=== PATIENT | female | born 1945 | race Caucasian/White ===

== ENCOUNTER 2017-10-23 13:33 | Inpatient (IN) | payer MEDICARE ==
[2017-10-23] MEDS ORDERED: ASPIRIN 81 MG PO STA (14:05)
[2017-10-23 15:07] LABS: Basophils % (A) 0 %; Eosinophils # (A) 0.2 k/uL (0-0.7); Eosinophils % (A) 2 %; HCT 42.1 % (34.0-46.0); HGB 13.6 gm/dL (11.4-16.0); Hypochromasia Moderate; Lymphocytes # (A) 2.1 k/uL (1.0-4.8); Lymphocytes % (A) 22 %; MCH 31.4 pg (25.0-35.0); MCHC 32.4 g/dL (31.0-37.0); Mean Platelet Volume 8.3; Monocytes # (A) 0.6 k/uL (0-1.0); Monocytes % (A) 6 %; Neutrophils # (A) 6.2 k/uL (1.3-7.7); Neutrophils % (A) 66 %; Platelet Count 182 k/uL (150-450); RBC 4.34 m/uL (3.80-5.40); RDW 15.6 % (11.5-15.5); WBC 9.3 k/uL (3.8-10.6)
[2017-10-23 15:16] LABS: INR 1.2 (<1.2); Prothrombin Time 11.8 sec (9.0-12.0)
[2017-10-23 15:21] LABS: ALT 57 U/L (9-52); AST 55 U/L (14-36); Albumin 3.8 g/dL (3.5-5.0); Alkaline Phosphatase 108 U/L (38-126); Anion Gap 15 mmol/L; Blood Urea Nitrogen 20 mg/dL (7-17); Calcium 9.3 mg/dL (8.4-10.2); Carbon Dioxide 24 mmol/L (22-30); Chloride 102 mmol/L (98-107); Glucose 112 mg/dL (74-99); Lipase 75 U/L (23-300); Magnesium 1.9 mg/dL (1.6-2.3); Potassium 4.9 mmol/L (3.5-5.1); Sodium 141 mmol/L (137-145); Total Bilirubin 0.7 mg/dL (0.2-1.3); Total Protein 7.1 g/dL (6.3-8.2)
--- NOTE | 2017-10-23 15:27 | XR ---
EXAMINATION TYPE: XR chest 2V DATE OF EXAM: 10/23/2017 COMPARISON: None HISTORY: 72-year-old female with chest pain and cough TECHNIQUE: PA and lateral views FINDINGS: Left heart margin partially obscured by adjacent pleural parenchymal opacities. Diffuse interstitial densities and peribronchial cuffing. Mild hyperinflation. There is patchy left basilar opacity with s mall effusion. Some focal peripheral right midlung density. Surgical clips in the right axilla. Trace effusion on the right. IMPRESSION: 1. Diffuse interstitial changes with small left and trace right effusions. Correlate to exclude mild CHF. 2. Interstitial changes could alternatively reflect bronchitis or atypical pneumonias. 3. More focal opacity at the peripheral right midlung could represent developing infiltrate. Follow-u p recommended.
--- NOTE | 2017-10-23 15:32 | XR ---
EXAMINATION TYPE: XR abdomen 2V DATE OF EXAM: 10/23/2017 CLINICAL DATA: 72-year-old female with pain, PHH COMPARISON: None FINDINGS: No evidence for free intraperitoneal air. Some nonspecific air within scattered bowel loops. There is mild stool in the right-sided the abdomen . Some air seen in the rectum. Vascular calcifications in both the abdomen and pelvis. Pelvic phleboliths. No dilated bowel loops. Degenerative levoconvex scoliosis of the lumbar spine. IMPRESSION: No evidence for free air or bowel obstruction.
[2017-10-23] MEDS ORDERED: HEPARIN SODIUM,PORCINE 5,000 UNIT/ML 1 ML VIAL IV ONE (15:59)
[2017-10-23] MEDS ORDERED: HEPARIN SOD,PORK IN 0.45% NACL 25,000 UNIT in 0.45% NACL 1 500ML.BAG IV SCH (16:00)
--- NOTE | 2017-10-23 16:03 | ED ---
Chest Pain HPI - General Chief Complaint: Chest Pain Stated Complaint: Chest Congestion, Constipated Time Seen by Provider: 10/23/17 14:05 Source: patient Mode of arrival: wheelchair Limitations: no limitations - History of Present Illness Initial Comments: Patient complains of chest pain. Pain is in the middle of the chest. Nothing makes it better or worse. She also complains of constipation. She also complains of firmness in the area of her old mastectomy scar. She has taken no medication for the symptoms. She denies palpitations. She has no pain or swelling in the arms or legs. She has no lightheadedness or dizziness. She denies injuries. She has had no sick contacts. Her chest pain does not radiate anywhere. She has no nausea or vomiting or diaphoresis. - Related Data Home Medications Medication Instructions Recorded Confirmed Ascorbic Acid [Vitamin C] 1,000 mg PO DAILY 10/23/17 10/23/17 Cholecalciferol [Vitamin D3] 1,000 unit PO DAILY 10/23/17 10/23/17 Multivitamins, Thera [Multivitamin 1 tab PO DAILY 10/23/17 10/23/17 (formulary)] Vitamin B Complex 1 cap PO DAILY 10/23/17 10/23/17 Allergies Allergy/AdvReac Type Severity Reaction Status Date / Time morphine Allergy Dyspnea Verified 10/23/17 15:53 Review of Systems ROS Statement: Those systems with pertinent positive or pertinent negative responses have been documented in the HPI. ROS Other: All systems not noted in ROS Statement are negative. EKG Findings - EKG Comments: EKG Findings:: Twelve-lead EKG shows ventricular 120 bpm, normal RI interval, normal QRS, no ST elevation or depression, interpreted by me as sinus tachycardia. Past Medical History Past Medical History: Asthma, Cancer, COPD History of Any Multi-Drug Resistant Organisms: None Reported Past Surgical History: Breast Surgery Additional Past Surgical History / Comment(s): masectomy Past Psychological History: No Psychological Hx Reported Smoking Status: Current every day smoker Past Alcohol Use History: Occasional Past Drug Use History: None Reported General Exam Limitations: no limitations General appearance: alert, in no apparent distress Head exam: Present: atraumatic, normocephalic, normal inspection Eye exam: Present: normal appearance, PERRL, EOMI. Absent: scleral icterus, conjunctival injection, periorbital swelling ENT exam: Present: normal exam, mucous membranes moist Neck exam: Present: normal inspection. Absent: tenderness, meningismus, lymphadenopathy Respiratory exam: Present: normal lung sounds bilaterally. Absent: respiratory distress, wheezes, rales, rhonchi, stridor Cardiovascular Exam: Present: regular rate, normal rhythm, normal heart sounds. Absent: systolic murmur, diastolic murmur, rubs, gallop, clicks GI/Abdominal exam: Present: soft, normal bowel sounds. Absent: distended, tenderness, guarding, rebound, rigid Extremities exam: Present: normal inspection, full ROM, normal capillary refill. Absent: tenderness, pedal edema, joint swelling, calf tenderness Back exam: Present: normal inspection Neurological exam: Present: alert, oriented X3, CN II-XII intact Psychiatric exam: Present: normal affect, normal mood Skin exam: Present: warm, dry, intact, normal color. Absent: rash Course Vital Signs 10/23/17 10/23/17 10/23/17 13:59 14:03 15:35 Temperature 98.9 F Pulse Rate 117 H 102 H Respiratory 24 24 22 Rate Blood Pressure 175/91 140/74 O2 Sat by Pulse 92 L 94 L Oximetry Chest Pain MDM - MDM Patient complains of chest pain. Troponin is positive. I ordered IV heparin. I consult to cardiology. She will be admitted to the hospital. Critical Care Time Critical Care Time: Yes (35) Disposition Clinical Impression: NSTEMI (non-ST elevated myocardial infarction) Disposition: ADMITTED IP TO THIS [facility] Condition: Serious Is patient prescribed a controlled substance at discharge?: No Referrals: None,Stated [Primary Care Provider] - 1-2 days
[2017-10-23 16:41] LABS: Appearance,Urine Cloudy (Clear); Bacteria,Urine Many /hpf; Bilirubin,Urine Negative (Negative); Blood,Urine Moderate (Negative); Color,Urine Yellow; Glucose,Urine (UA) Negative (Negative); Ketones,Urine Negative (Negative); Leukocyte Esterase,Urine Large (Negative); Mucus,Urine Rare /hpf; Nitrite,Urine Positive (Negative); Protein,Urine Trace (Negative); RBC,Urine 10 /hpf (0-5); Specific Gravity,Urine 1.009 (1.001-1.035); Squamous Epithelial Cell,Urine 1 /hpf (0-4); Urobilinogen,Urine <2.0 mg/dL (<2.0); WBC,Urine 54 /hpf (0-5)
[2017-10-23] MEDS ORDERED: BISACODYL 5 MG TABLET.DR PO PRN (17:38)
[2017-10-23] MEDS ORDERED: POLYETHYLENE GLYCOL 3350 17 GM POWD.PACK PO STA (17:40)
[2017-10-23] MEDS ORDERED: MAG HYDROX/AL HYDROX/SIMETH 30 ML CUP PO PRN (17:42)
[2017-10-23] MEDS ORDERED: PROCHLORPERAZINE 5 MG TAB PO PRN (17:42)
[2017-10-23] MEDS ORDERED: ACETAMINOPHEN TAB 325 MG TAB PO PRN (17:42)
--- NOTE | 2017-10-23 17:57 | P.HPIM ---
History of Present Illness H&P Date: 10/23/17 Chief Complaint: Constipation Patient is a 72-year-old female who does not follow with a physician, long-time smoker however quit a couple weeks ago with onset of an upper respiratory type infection. Patient presented to the ED with a 2+ week history of constipation, states the last full bowel movement was about 2 weeks ago and since then has only been having intermittent very small hard bowel movements. While in the ED , patient also complained about right-sided chest wall pain located at the bottom of her rib cage which she has been having intermittently and which she thinks is related to her constipation. Patient also states she had some what she thought was indigestion last night, with some epigastric discomfort which she attributed to eating chili before bed. While in the ED, found to have a troponin of 0.113 and started on heparin, admitted to telemetry for presumed NSTEMI. No ECG changes. Review of Systems CONSTITUTIONAL: No weight loss, fever, chills, weakness or fatigue. HEENT: Eyes: No visual loss, blurred vision, double vision or yellow sclerae. Ears, Nose, Throat: No hearing loss, sneezing, congestion, runny nose or sore throat. SKIN: No rash or itching. CARDIOVASCULAR: Positive for epigastric discomfort last night. Right rib cage pain. No radiation. No palpitations. RESPIRATORY: No shortness of breath, cough or sputum. GASTROINTESTINAL: No anorexia, nausea, vomiting or diarrhea. No abdominal pain or blood. Positive for constipation GENITOURINARY: No burning on urination. No change in frequency. No change in stream. NEUROLOGICAL: No headache, dizziness, syncope, paralysis, ataxia, numbness or tingling in the extremities. No change in bowel or bladder control. MUSCULOSKELETAL: No muscle, back pain, joint pain or stiffness. HEMATOLOGIC: No anemia, bleeding or bruising. PSYCHIATRIC: No history of depression or anxiety. ENDOCRINOLOGIC: No reports of sweating, cold or heat intolerance. No polyuria or polydipsia. ALLERGIES: No history of asthma, hives, eczema or rhinitis. Past Medical History Past Medical History: Cancer, COPD History of Any Multi-Drug Resistant Organisms: None Reported Past Surgical History: Breast Surgery Additional Past Surgical History / Comment(s): masectomy Past Psychological History: No Psychological Hx Reported Smoking Status: Current every day smoker (Supposedly quit a couple weeks ago) Past Alcohol Use History: Occasional Past Drug Use History: None Reported - Past Family History Father Family Medical History: Coronary Artery Disease (CAD), Hypertension Mother Family Medical History: Coronary Artery Disease (CAD), Diabetes Mellitus, Hypertension Medications and Allergies Home Medications Medication Instructions Recorded Confirmed Type Ascorbic Acid [Vitamin C] 1,000 mg PO DAILY 10/23/17 10/23/17 History Cholecalciferol [Vitamin D3] 1,000 unit PO DAILY 10/23/17 10/23/17 History Multivitamins, Thera [Multivitamin 1 tab PO DAILY 10/23/17 10/23/17 History (formulary)] Vitamin B Complex 1 cap PO DAILY 10/23/17 10/23/17 History Allergies Allergy/AdvReac Type Severity Reaction Status Date / Time morphine Allergy Dyspnea Verified 10/23/17 15:53 Physical Exam Vitals: Vital Signs Temp Pulse Resp BP Pulse Ox 10/23/17 17:02 97.0 F L 105 H 18 148/79 94 L 10/23/17 15:35 102 H 22 140/74 94 L 10/23/17 14:03 24 10/23/17 13:59 98.9 F 117 H 24 175/91 92 L Intake and Output 10/23/17 10/23/17 10/23/17 06:59 14:59 22:59 Other: Weight 61.689 kg General: A/O x 3, NAD, Lying in bed comfortably HEENT: EOMI, MMM, atraumatic normocephalic. Poor dentition, missing many teeth Neck: Supple. No JVD, trachea midline CVS: Regular rate and rhythm. + S1/S2, no murmurs/gallops/rubs Respiratory: Bilateral air entry noted. Clear to auscultation, no wheeze, no rhonchi Abdomen: Soft, nontender, nondistended. Bowel sounds audible, hypoactive Extremities: No lower extremity edema. No clubbing or cyanosis Skin: No rash or skin change noted Psych: Without hallucinations, abnormal affect, or abnormal behaviors during the examination Results CBC & Chem 7: 10/23/17 14:40 10/23/17 14:40 Labs: Abnormal Lab Results - Last 24 Hours (Table) 10/23/17 10/23/17 10/23/17 Range/Units 14:40 14:40 14:40 RDW 15.6 H (11.5-15.5) % INR 1.2 H (<1.2) BUN 20 H (7-17) mg/dL Glucose 112 H (74-99) mg/dL AST 55 H (14-36) U/L ALT 57 H (9-52) U/L Troponin I (0.000-0.034) ng/mL Urine Appearance (Clear) Urine Protein (Negative) Urine Blood (Negative) Urine Nitrite (Negative) Ur Leukocyte Esterase (Negative) Urine RBC (0-5) /hpf Urine WBC (0-5) /hpf Urine WBC Clumps (None) /hpf Urine Bacteria (None) /hpf Urine Mucus (None) /hpf 18 10/23/17 Range/Units 14:40 16:08 RDW (11.5-15.5) % INR (<1.2) BUN (7-17) mg/dL Glucose (74-99) mg/dL AST (14-36) U/L ALT (9-52) U/L Troponin I 0.113 H* (0.000-0.034) ng/mL Urine Appearance Cloudy H (Clear) Urine Protein Trace H (Negative) Urine Blood Moderate H (Negative) Urine Nitrite Positive H (Negative) Ur Leukocyte Esterase Large H (Negative) Urine RBC 10 H (0-5) /hpf Urine WBC 54 H (0-5) /hpf Urine WBC Clumps Moderate H (None) /hpf Urine Bacteria Many H (None) /hpf Urine Mucus Rare H (None) /hpf Chest x-ray: report reviewed Thrombosis Risk Factor Assmnt - DVT/VTE Prophylaxis DVT/VTE Prophylaxis: Pharmacologic Prophylaxis ordered Assessment and Plan (1) Constipation Current Visit: Yes Status: Acute Code(s): K59.00 - CONSTIPATION, UNSPECIFIED SNOMED Code(s): 01869706 (2) NSTEMI (non-ST elevated myocardial infarction) Current Visit: Yes Status: Acute Code(s): I21.4 - NON-ST ELEVATION (NSTEMI) MYOCARDIAL INFARCTION SNOMED Code(s): 467130003 Plan: Found to have an elevated troponin of 0.1131 on the ED, however patient denies any explicit chest pain and this troponin elevation seems to be almost incidentally found. Patient did complain about some epigastric discomfort last night which she attributed to her meal, and of note patient is not the greatest of historians. ECG showed no acute ST or T-wave changes. We'll repeat a troponin now and again in 6 hours. Patient was started on heparin while in the ED, given aspirin and cardiology was consulted. At this time we'll continue the heparin pending further workup. This mild troponin elevation may be related to a recent URI with demand ischemia, versus an actual NSTEMI with the patient's epigastric discomfort actually cardiac pain. Pending further workup with repeat troponins, monitor on telemetry. Patient states she came in because the constipation which has been going on for 2+ weeks without adequate bowel movement. MiraLAX now, Dulcolax when necessary. May need enema
[2017-10-24] MEDS ORDERED: HEPARIN SODIUM,PORCINE 5,000 UNIT/ML 1 ML VIAL IV PRN (00:43)
[2017-10-24 04:27] LABS: ALT 52 U/L (9-52); AST 46 U/L (14-36); Albumin 3.3 g/dL (3.5-5.0); Alkaline Phosphatase 94 U/L (38-126); Anion Gap 13 mmol/L; Blood Urea Nitrogen 23 mg/dL (7-17); Carbon Dioxide 23 mmol/L (22-30); Chloride 105 mmol/L (98-107); Glucose 121 mg/dL (74-99); Potassium 4.6 mmol/L (3.5-5.1); Sodium 141 mmol/L (137-145); Total Bilirubin 0.5 mg/dL (0.2-1.3)
--- NOTE | 2017-10-24 08:22 | CONS ---
CONSULTATION Ms. Sierra is a 72-year-old female with a history of chronic tobacco use who has not seen a physician in many years, who presented with predominantly constipation and chest discomfort. Her discomfort was right-sided but she had some discomfort to the middle of the chest. She had recent dyspnea. She denies any palpitation. She had mild dizziness. She had 4 pillow orthopnea that is chronic and that she relates to her asthma. No peripheral edema. No syncope. No history of arrhythmia. She has no prior documented history of coronary artery disease, but has not seen a physician in many years and she does not take any medication. Her coronary risk factors are noted for the smoking. She has not been told that she has hypertension, hyperlipidemia, or diabetes. MEDICATION: At home include vitamins. REVIEW OF SYSTEMS: RESPIRATORY system she had dyspnea on exertion. She has some cough and she smokes up to recently. GI system: She has constipation. No GI bleeding. No peptic ulcer disease. system: No dysuria, hematuria. Nervous system: No stroke or seizure disorder. PAST SURGICAL HISTORY: Past surgical history is remarkable for right mastectomy for malignancy. PHYSICAL EXAMINATION: This is a 72-year-old female, alert, oriented, in no apparent distress. Appears older than stated age. Blood pressure 140/60 with a heart rate in the low 100. HEAD: Normocephalic. Eyes sclerae anicteric. Neck good carotid upstroke. No bruit. No jugular venous distention. LUNGS: Lungs with decreased air exchange. No wheezes. HEART: Regular rate and rhythm S1, S2. No S3 and no rub. ABDOMEN: Soft, nontender. Positive bowel sounds. No megaly. EXTREMITIES: No edema. Intact distal pulses. LAB DATA: Chest x-ray raised the question of mild CHF with possible bronchitis. Abdominal x-ray shows no evidence of free air. Her troponin are 0.113, 0.118 and 0.124. NT proBNP 98622. BUN and creatinine 20 and 0.76, potassium 4.9. Hemoglobin is 13.6. No EKGs available for evaluation. IMPRESSION: 1. Symptoms of chest discomfort and dyspnea with elevation of troponin suggestive of non ST-segment elevation myocardial infarction. Patient also has findings consistent with CHF with the elevation of the NT proBNP and results of her chest x- ray. 2. Chronic tobacco use up to recently. 3. Constipation of unclear etiology. 4. Prior history off mastectomy in the , is stable. RECOMMENDATION: I will obtain echocardiogram with Doppler. I will obtain an EKG. I have recommended to proceed with a echocardiogram with Doppler. I have recommend to proceed with cardiac catheterization. The rationale behind the procedure as well as risks and complication were discussed with the patient. She would like to think about it further and let me know about her decision. Thank you for this consult. We will follow with you. MMODL / IJN: [id number] /
[2017-10-24] MEDS ORDERED: ALPRAZolam 0.25 MG TAB PO PRN (08:39)
[2017-10-24] MEDS ORDERED: NITROGLYCERIN SL TABS 0.4 MG TAB SUBLINGUAL PRN (08:39)
[2017-10-24] MEDS ORDERED: ATORVASTATIN 80 MG TAB PO STA (08:39)
[2017-10-24] MEDS ORDERED: SODIUM CHLORIDE 0.9% 1,000 ML in EMPTY BAG 1 BAG IV ONE (08:39)
[2017-10-24] MEDS ORDERED: ALPRAZolam 0.5 MG TAB PO PRN (08:39)
[2017-10-24] MEDS ORDERED: ASPIRIN 325 MG TAB PO STA (08:39)
[2017-10-24] MEDS: FUROSEMIDE 20 MG TAB PO SCH ×2 (08:58→21:56)
[2017-10-24] MEDS ORDERED: METOPROLOL TARTRATE 25 MG TAB PO SCH (09:00)
[2017-10-24] MEDS ORDERED: ATORVASTATIN 40 MG TAB PO SCH (09:00)
[2017-10-24] MEDS ORDERED: ASPIRIN 81 MG PO SCH (09:00)
[2017-10-24] MEDS ORDERED: LIDOCAINE 2% INJ 20 MG/ML (20 ML MDV) ONE (09:05)
[2017-10-24] MEDS ORDERED: fentaNYL (PF) 50 MCG/ML 2 ML AMP ONE (09:30)
[2017-10-24] MEDS ORDERED: IV FLUID CONTINUATION 1,000 ML IV ONE (09:36)
[2017-10-24 09:43] LABS: Cholesterol 177 mg/dL (<200); HDL Cholesterol 29 mg/dL (40-60); LDL Cholesterol,Calculated 130 mg/dL (0-99); Triglycerides 89 mg/dL (<150)
[2017-10-24] MEDS ORDERED: fentaNYL (PF) 50 MCG/ML 2 ML AMP IV ONE (09:53)
[2017-10-24] MEDS ORDERED: LIDOCAINE 2% INJ 20 MG/ML SQ ONE (09:56)
[2017-10-24] MEDS ORDERED: MIDAZOLAM 2 MG/2 ML VIAL ONE (10:03)
[2017-10-24] MEDS ORDERED: MIDAZOLAM 2 MG/2 ML VIAL IV ONE (10:05)
[2017-10-24] MEDS ORDERED: FUROSEMIDE 10 MG/ML 4 ML VIAL ONE (10:12)
[2017-10-24] MEDS ORDERED: FUROSEMIDE 10 MG/ML 4 ML VIAL IV ONE (10:13)
[2017-10-24] MEDS ORDERED: IOPAMIDOL-370 125ML BTL INJ ONE (10:26)
[2017-10-24] MEDS ORDERED: IOPAMIDOL-370 50ML BTL INJ ONE (10:26)
[2017-10-24] MEDS ORDERED: RX INFO: IV CONTRAST WAS GIVEN 1 EACH MISC MISCELLANE PRN (10:39)
[2017-10-24] MEDS ORDERED: SODIUM CHLORIDE 0.9% 1,000 ML IV SCH (10:45)
[2017-10-24] MEDS ORDERED: MD COMMUNICATION TO PHARMACY 1 EACH MISC PO ONE ×2 (10:57)
--- NOTE | 2017-10-24 11:06 | CC ---
CARDIAC CATHETERIZATION REPORT Mrs. Sierra is a 72-year-old female, chronic tobacco use, who has not seen a physician in about 10 years, who presented with symptoms of constipation, chest discomfort and dyspnea. Had mild elevation of troponin with no significant changes. In view of that, recommendation made regarding cardiac catheterization. The procedures, risks and complication were discussed with the patient who is in full understanding and agreement. PROCEDURE: Patient was brought to the [facility] in a fasting, semi-sedated state after receiving fentanyl and Benadryl and achieving moderate conscious sedated state. Using Xylocaine anesthesia and Seldinger technique, a 6-Samoan sheath was introduced in the right femoral artery. Selective left coronary angiography performed with 6-Samoan 4 bend left Andrew catheter. Following that, multiple images of the left coronary artery system were obtained. Following that, a 6-Samoan tight pigtail catheter was introduced into the left ventricle, a 30 degree ALSTON view of the left ventricle was obtained. Following that, the right coronary artery ostium was engaged using a 6-Samoan Gabriel posterior catheter and images of the right coronary was performed. Following that, catheter and sheaths were removed. Hemostasis was obtained with compression of the right groin. There were no immediate complication. Patient returned to her room in stable condition. FINDINGS: 1. FLUOROSCOPY: There was severe calcification involving the left main and the LAD. 2. LEFT MAIN: This is a large-sized vessel, bifurcating into left circumflex, left anterior descending artery. Left main coronary artery at the bifurcation has an eccentric 60% to 70% plaque. The rest of the vessel has no high-grade stenosis. 3. LEFT ANTERIOR DESCENDING ARTERY: This is a large dominant vessel, giving rise to a large diagonal branch. At the takeoff of the diagonal branch there is an 80 % stenosis. The rest of the vessel has no high-grade stenosis. 4. LEFT CIRCUMFLEX: This is a nondominant vessel that has no evidence of high- grade stenosis. It gives rise to a large obtuse marginal branch that has a 20% to 30% plaque, distally bifurcating into PDA, posterolateral segment and branches. 5. RIGHT CORONARY ARTERY: This is a small, codominant vessel that has no evidence of high-grade stenosis. 6. LEFT VENTRICULOGRAM: Left ventriculogram is performed in 30-degree ALSTON view and revealed severe global hypokinesis with ejection fraction of 20%. There was a 4+ mitral regurgitation. The patient has severe PAD. HEMODYNAMICS: There was no gradient across the aortic valve. The left ventricular end- diastolic pressure is 26-30 mmHg. CONCLUSION: 1. Calcified coronary arteries. 2. Critical stenosis in distal left main and in the proximal left anterior descending artery. 3. Severely impaired left ventricular systolic function with a 3 to 4+ mitral regurgitation. 4. Severe PAD. RECOMMENDATION: At this time, I would recommend to maximize her medical therapy. Patient needs to be evaluated for the possibility of coronary bypass grafting. Unfortunately, the prognosis is guarded. Those findings and recommendation were discussed with the patient and her family who are in full understanding and agreement. DURATION OF PROCEDURE: 28 minutes. MMODL / IJN: [id number] / ADELA
[2017-10-24 11:27] LABS: Basophils # (A) 0.1 k/uL (0-0.2); Basophils % (A) 1 %; Eosinophils # (A) 0.3 k/uL (0-0.7); Eosinophils % (A) 3 %; HCT 44.9 % (34.0-46.0); HGB 13.5 gm/dL (11.4-16.0); Hypochromasia Marked; Lymphocytes # (A) 2.5 k/uL (1.0-4.8); Lymphocytes % (A) 25 %; MCH 30.5 pg (25.0-35.0); MCHC 30.1 g/dL (31.0-37.0); MCV 101.3 fL (80.0-100.0); Macrocytosis Slight; Mean Platelet Volume 9.9; Monocytes # (A) 0.7 k/uL (0-1.0); Monocytes % (A) 7 %; Neutrophils # (A) 6.1 k/uL (1.3-7.7); Neutrophils % (A) 62 %; Platelet Count 152 k/uL (150-450); RBC 4.43 m/uL (3.80-5.40); RDW 15.8 % (11.5-15.5); WBC 9.8 k/uL (3.8-10.6)
[2017-10-24 11:46] LABS: INR 1.4 (<1.2); Prothrombin Time 12.7 sec (9.0-12.0)
[2017-10-24 12:40] LABS: T4, Free (Free Thyroxine) 1.47 ng/dL (0.78-2.19)
[2017-10-24] MEDS: HEPARIN SOD,PORK IN 0.45% NACL 25,000 UNIT in 0.45% NACL 1 500ML.BAG IV SCH (12:50)
--- NOTE | 2017-10-24 13:52 | P.PN ---
Subjective Progress Note Date: 10/24/17 Principal diagnosis: Chest pain Patient just came back from heart catheterization, currently doing well no chest pain or shortness of breath. She feels a little dizzy and weak. Objective - Vital Signs Vital signs: Vital Signs Temp 97.0 F L 10/24/17 10:54 Pulse 75 10/24/17 10:54 Resp 18 10/24/17 10:54 BP 126/60 10/24/17 10:54 Pulse Ox 92 L 10/24/17 10:54 Intake & Output 10/23/17 10/24/17 10/24/17 18:59 06:59 18:59 Intake Total 159.7 100 Output Total 400 Balance 159.7 -300 Weight 61.689 kg 67.5 kg Intake: IV 45 100 Heparin Sod,Pork in 0.45% 45 NaCl 25,000 unit In 0.45 % NaCl 1 500ml.bag @ 12 UNITS/KG/HR 14.8 mls/hr IV .Q24H BETSY Rx#: [id number] Intake, IV Titration 114.7 Amount Heparin Sod,Pork in 0.45% 114.7 NaCl 25,000 unit In 0.45 % NaCl 1 500ml.bag @ 12 UNITS/KG/HR 14.8 mls/hr IV .Q24H BETSY Rx#: [id number] Output: Urine 400 Other: Voiding Method Bedside Commode - Exam General: A/O x 3, NAD, Lying in bed comfortably HEENT: EOMI, MMM, atraumatic normocephalic. Poor dentition, missing many teeth Neck: Supple. No JVD, trachea midline CVS: Regular rate and rhythm. + S1/S2, no murmurs/gallops/rubs Respiratory: Bilateral air entry noted. Clear to auscultation, no wheeze, no rhonchi Abdomen: Soft, nontender, nondistended. Bowel sounds audible, hypoactive Extremities: No lower extremity edema. No clubbing or cyanosis Skin: No rash or skin change noted Psych: Without hallucinations, abnormal affect, or abnormal behaviors during the examination - Labs CBC & Chem 7: 10/24/17 06:18 10/24/17 03:31 Labs: Abnormal Lab Results - Last 24 Hours (Table) 10/23/17 10/23/17 10/23/17 Range/Units 14:40 14:40 14:40 MCV (80.0-100.0) fL MCHC (31.0-37.0) g/dL RDW 15.6 H (11.5-15.5) % PT (9.0-12.0) sec INR 1.2 H (<1.2) APTT (22.0-30.0) sec BUN 20 H (7-17) mg/dL Glucose 112 H (74-99) mg/dL AST 55 H (14-36) U/L ALT 57 H (9-52) U/L Troponin I (0.000-0.034) ng/mL Total Protein (6.3-8.2) g/dL Albumin (3.5-5.0) g/dL LDL Cholesterol, Calc (0-99) mg/dL HDL Cholesterol (40-60) mg/dL TSH (0.465-4.680) mIU/L Urine Appearance (Clear) Urine Protein (Negative) Urine Blood (Negative) Urine Nitrite (Negative) Ur Leukocyte Esterase (Negative) Urine RBC (0-5) /hpf Urine WBC (0-5) /hpf Urine WBC Clumps (None) /hpf Urine Bacteria (None) /hpf Urine Mucus (None) /hpf 10/23/17 10/23/17 10/23/17 Range/Units 14:40 16:08 19:14 MCV (80.0-100.0) fL MCHC (31.0-37.0) g/dL RDW (11.5-15.5) % PT (9.0-12.0) sec INR (<1.2) APTT (22.0-30.0) sec BUN (7-17) mg/dL Glucose (74-99) mg/dL AST (14-36) U/L ALT (9-52) U/L Troponin I 0.113 H* 0.118 H* (0.000-0.034) ng/mL Total Protein (6.3-8.2) g/dL Albumin (3.5-5.0) g/dL LDL Cholesterol, Calc (0-99) mg/dL HDL Cholesterol (40-60) mg/dL TSH (0.465-4.680) mIU/L Urine Appearance Cloudy H (Clear) Urine Protein Trace H (Negative) Urine Blood Moderate H (Negative) Urine Nitrite Positive H (Negative) Ur Leukocyte Esterase Large H (Negative) Urine RBC 10 H (0-5) /hpf Urine WBC 54 H (0-5) /hpf Urine WBC Clumps Moderate H (None) /hpf Urine Bacteria Many H (None) /hpf Urine Mucus Rare H (None) /hpf 10/23/17 10/24/17 10/24/17 Range/Units 23:19 03:26 03:31 MCV (80.0-100.0) fL MCHC (31.0-37.0) g/dL RDW (11.5-15.5) % PT (9.0-12.0) sec INR (<1.2) APTT 35.1 H (22.0-30.0) sec BUN 23 H (7-17) mg/dL Glucose 121 H (74-99) mg/dL AST 46 H (14-36) U/L ALT (9-52) U/L Troponin I 0.124 H* (0.000-0.034) ng/mL Total Protein 6.0 L (6.3-8.2) g/dL Albumin 3.3 L (3.5-5.0) g/dL LDL Cholesterol, Calc (0-99) mg/dL HDL Cholesterol (40-60) mg/dL TSH (0.465-4.680) mIU/L Urine Appearance (Clear) Urine Protein (Negative) Urine Blood (Negative) Urine Nitrite (Negative) Ur Leukocyte Esterase (Negative) Urine RBC (0-5) /hpf Urine WBC (0-5) /hpf Urine WBC Clumps (None) /hpf Urine Bacteria (None) /hpf Urine Mucus (None) /hpf 10/24/17 10/24/17 10/24/17 Range/Units 06:18 06:18 06:18 MCV 101.3 H (80.0-100.0) fL MCHC 30.1 L (31.0-37.0) g/dL RDW 15.8 H (11.5-15.5) % PT (9.0-12.0) sec INR (<1.2) APTT 56.8 H (22.0-30.0) sec BUN (7-17) mg/dL Glucose (74-99) mg/dL AST (14-36) U/L ALT (9-52) U/L Troponin I (0.000-0.034) ng/mL Total Protein (6.3-8.2) g/dL Albumin (3.5-5.0) g/dL LDL Cholesterol, Calc 130 H (0-99) mg/dL HDL Cholesterol 29 L (40-60) mg/dL TSH (0.465-4.680) mIU/L Urine Appearance (Clear) Urine Protein (Negative) Urine Blood (Negative) Urine Nitrite (Negative) Ur Leukocyte Esterase (Negative) Urine RBC (0-5) /hpf Urine WBC (0-5) /hpf Urine WBC Clumps (None) /hpf Urine Bacteria (None) /hpf Urine Mucus (None) /hpf 10/24/17 10/24/17 Range/Units 06:18 06:18 MCV (80.0-100.0) fL MCHC (31.0-37.0) g/dL RDW (11.5-15.5) % PT 12.7 H (9.0-12.0) sec INR 1.4 H (<1.2) APTT (22.0-30.0) sec BUN (7-17) mg/dL Glucose (74-99) mg/dL AST (14-36) U/L ALT (9-52) U/L Troponin I (0.000-0.034) ng/mL Total Protein (6.3-8.2) g/dL Albumin (3.5-5.0) g/dL LDL Cholesterol, Calc (0-99) mg/dL HDL Cholesterol (40-60) mg/dL TSH 6.260 H (0.465-4.680) mIU/L Urine Appearance (Clear) Urine Protein (Negative) Urine Blood (Negative) Urine Nitrite (Negative) Ur Leukocyte Esterase (Negative) Urine RBC (0-5) /hpf Urine WBC (0-5) /hpf Urine WBC Clumps (None) /hpf Urine Bacteria (None) /hpf Urine Mucus (None) /hpf Assessment and Plan Plan: (1) NSTEMI (non-ST elevated myocardial infarction) Cardiology was consulted, troponin trended up so patient was taken to the [facility] today, decision was made to pursue cardiac bypass and to consult CT surgery.. Continue aspirin, beta gregg, AMANDA inhibitor, statin, Lasix and Aldactone At this time we'll continue the heparin pending further workup. (2) Constipation: Laxatives as needed
--- NOTE | 2017-10-24 14:53 | P.GSCN ---
<Mana Prabhakar - Last Filed: 10/24/17 14:28> History of Present Illness Consult date: 10/24/17 Reason for Consult: Severe coronary artery disease with left main disease, impaired LV function with mitral regurgitation, surgical recommendations. Requesting physician: Cele Bass History of present illness: This is a 72-year-old patient who has not followed with any physician in greater than 10 years. She does report a history of right breast cancer with mastectomy, status post chemo and radiation in 1997, hypothyroidism for which she stopped taking her medications years ago, recent cessation of tobacco use with previous [id number] history, medical noncompliance, and significant family history of coronary artery disease. She presented to the emergency room yesterday with complaints of constipation 2 weeks. She also admits to having an episode of chest pain a couple of nights ago which she states felt like heartburn and she attributed it to the chili she had eaten that day. She does report associated symptoms of shortness of breath, diaphoresis, and dizziness, which subsided without intervention. She had an elevation in her troponins and was admitted for cardiac workup. She was recommended to undergo heart catheterization which was completed this morning and which demonstrated left main stenosis of 60-70%, 30% RCA stenosis, 20% circumflex stenosis, and 80% proximal LAD stenosis. LV gram demonstrated severely impaired left ventricular function with an ejection fraction of 20% and 3-4+ mitral regurgitation. Dr. Marks was consulted for recommendations regarding surgical revascularization. Review of Systems 14 point review of systems was completed and was negative except as noted. - Constitutional Reports sweats - Cardiovascular Reports as per HPI, Reports chest pain, Reports lightheadedness, Reports shortness of breath - Respiratory Reports as per HPI, Reports dyspnea Past Medical History Past Medical History: Cancer, COPD, Thyroid Disorder History of Any Multi-Drug Resistant Organisms: None Reported Past Surgical History: Breast Surgery Additional Past Surgical History / Comment(s): masectomy Past Psychological History: No Psychological Hx Reported Smoking Status: Former smoker Past Alcohol Use History: Daily Additional Past Alcohol Use History / Comment(s): Daily glass of wine Past Drug Use History: None Reported - Past Family History Father Family Medical History: Coronary Artery Disease (CAD), CVA/TIA, Hypertension, Myocardial Infarction ([place]) Mother Family Medical History: Coronary Artery Disease (CAD), CVA/TIA, Diabetes Mellitus, Hypertension, Myocardial Infarction ([place]) Additional Family Medical History / Comment(s): pace maker Medications and Allergies Home Medications Medication Instructions Recorded Confirmed Type Ascorbic Acid [Vitamin C] 1,000 mg PO DAILY 10/23/17 10/23/17 History Cholecalciferol [Vitamin D3] 1,000 unit PO DAILY 10/23/17 10/23/17 History Multivitamins, Thera [Multivitamin 1 tab PO DAILY 10/23/17 10/23/17 History (formulary)] Vitamin B Complex 1 cap PO DAILY 10/23/17 10/23/17 History Allergies Allergy/AdvReac Type Severity Reaction Status Date / Time morphine Allergy Dyspnea Verified 10/23/17 15:53 Surgical - Exam Vital Signs Temp Pulse Resp BP Pulse Ox 98.9 F 117 H 24 175/91 92 L 10/23/17 13:59 10/23/17 13:59 10/23/17 13:59 10/23/17 13:59 10/23/17 13:59 - General well developed, no distress, no pain, chronically ill - Eyes PERRL, normal ocular movement - ENT Multiple teeth missing no hearing loss, poor jail - Neck no masses, no bruits, trachea midline - Respiratory Lungs sounds diminished bilaterally. Respirations even, nonlabored. Currently on 4 L nasal cannula with oxygen saturations 92%. Strong, wet cough. - Cardiovascular S1, S2 present. Regular rate and rhythm, sinus rhythm on telemetry. Palpable peripheral pulses bilaterally. No edema present. No calf pain or tenderness noted. Positive varicosities to bilateral lower extremities. - Abdomen Abdomen: soft, tender, bowel sounds - Genitourinary Deferred - Rectum Deferred - Integumentary Right femoral artery heart catheterization site soft, nontender. No ecchymosis. no rash, no growths - Neurologic normal coordination, normal sensation - Psychiatric oriented to time, oriented to person, oriented to place, speech is normal, memory intact Results - Labs 10/24/17 06:18 10/24/17 03:31 Abnormal Lab Results - Last 24 Hours (Table) 10/23/17 10/23/17 10/23/17 Range/Units 14:40 14:40 14:40 MCV (80.0-100.0) fL MCHC (31.0-37.0) g/dL RDW 15.6 H (11.5-15.5) % PT (9.0-12.0) sec INR 1.2 H (<1.2) APTT (22.0-30.0) sec BUN 20 H (7-17) mg/dL Glucose 112 H (74-99) mg/dL AST 55 H (14-36) U/L ALT 57 H (9-52) U/L Troponin I (0.000-0.034) ng/mL Total Protein (6.3-8.2) g/dL Albumin (3.5-5.0) g/dL LDL Cholesterol, Calc (0-99) mg/dL HDL Cholesterol (40-60) mg/dL TSH (0.465-4.680) mIU/L Urine Appearance (Clear) Urine Protein (Negative) Urine Blood (Negative) Urine Nitrite (Negative) Ur Leukocyte Esterase (Negative) Urine RBC (0-5) /hpf Urine WBC (0-5) /hpf Urine WBC Clumps (None) /hpf Urine Bacteria (None) /hpf Urine Mucus (None) /hpf 10/23/17 10/23/17 10/23/17 Range/Units 14:40 16:08 19:14 MCV (80.0-100.0) fL MCHC (31.0-37.0) g/dL RDW (11.5-15.5) % PT (9.0-12.0) sec INR (<1.2) APTT (22.0-30.0) sec BUN (7-17) mg/dL Glucose (74-99) mg/dL AST (14-36) U/L ALT (9-52) U/L Troponin I 0.113 H* 0.118 H* (0.000-0.034) ng/mL Total Protein (6.3-8.2) g/dL Albumin (3.5-5.0) g/dL LDL Cholesterol, Calc (0-99) mg/dL HDL Cholesterol (40-60) mg/dL TSH (0.465-4.680) mIU/L Urine Appearance Cloudy H (Clear) Urine Protein Trace H (Negative) Urine Blood Moderate H (Negative) Urine Nitrite Positive H (Negative) Ur Leukocyte Esterase Large H (Negative) Urine RBC 10 H (0-5) /hpf Urine WBC 54 H (0-5) /hpf Urine WBC Clumps Moderate H (None) /hpf Urine Bacteria Many H (None) /hpf Urine Mucus Rare H (None) /hpf 10/23/17 10/24/17 10/24/17 Range/Units 23:19 03:26 03:31 MCV (80.0-100.0) fL MCHC (31.0-37.0) g/dL RDW (11.5-15.5) % PT (9.0-12.0) sec INR (<1.2) APTT 35.1 H (22.0-30.0) sec BUN 23 H (7-17) mg/dL Glucose 121 H (74-99) mg/dL AST 46 H (14-36) U/L ALT (9-52) U/L Troponin I 0.124 H* (0.000-0.034) ng/mL Total Protein 6.0 L (6.3-8.2) g/dL Albumin 3.3 L (3.5-5.0) g/dL LDL Cholesterol, Calc (0-99) mg/dL HDL Cholesterol (40-60) mg/dL TSH (0.465-4.680) mIU/L Urine Appearance (Clear) Urine Protein (Negative) Urine Blood (Negative) Urine Nitrite (Negative) Ur Leukocyte Esterase (Negative) Urine RBC (0-5) /hpf Urine WBC (0-5) /hpf Urine WBC Clumps (None) /hpf Urine Bacteria (None) /hpf Urine Mucus (None) /hpf 10/24/17 10/24/17 10/24/17 Range/Units 06:18 06:18 06:18 MCV 101.3 H (80.0-100.0) fL MCHC 30.1 L (31.0-37.0) g/dL RDW 15.8 H (11.5-15.5) % PT (9.0-12.0) sec INR (<1.2) APTT 56.8 H (22.0-30.0) sec BUN (7-17) mg/dL Glucose (74-99) mg/dL AST (14-36) U/L ALT (9-52) U/L Troponin I (0.000-0.034) ng/mL Total Protein (6.3-8.2) g/dL Albumin (3.5-5.0) g/dL LDL Cholesterol, Calc 130 H (0-99) mg/dL HDL Cholesterol 29 L (40-60) mg/dL TSH (0.465-4.680) mIU/L Urine Appearance (Clear) Urine Protein (Negative) Urine Blood (Negative) Urine Nitrite (Negative) Ur Leukocyte Esterase (Negative) Urine RBC (0-5) /hpf Urine WBC (0-5) /hpf Urine WBC Clumps (None) /hpf Urine Bacteria (None) /hpf Urine Mucus (None) /hpf 10/24/17 10/24/17 Range/Units 06:18 06:18 MCV (80.0-100.0) fL MCHC (31.0-37.0) g/dL RDW (11.5-15.5) % PT 12.7 H (9.0-12.0) sec INR 1.4 H (<1.2) APTT (22.0-30.0) sec BUN (7-17) mg/dL Glucose (74-99) mg/dL AST (14-36) U/L ALT (9-52) U/L Troponin I (0.000-0.034) ng/mL Total Protein (6.3-8.2) g/dL Albumin (3.5-5.0) g/dL LDL Cholesterol, Calc (0-99) mg/dL HDL Cholesterol (40-60) mg/dL TSH 6.260 H (0.465-4.680) mIU/L Urine Appearance (Clear) Urine Protein (Negative) Urine Blood (Negative) Urine Nitrite (Negative) Ur Leukocyte Esterase (Negative) Urine RBC (0-5) /hpf Urine WBC (0-5) /hpf Urine WBC Clumps (None) /hpf Urine Bacteria (None) /hpf Urine Mucus (None) /hpf Diabetes panel 10/23/17 10/24/17 10/24/17 Range/Units 14:40 03:31 06:18 Sodium 141 141 (137-145) mmol/L Potassium 4.9 4.6 (3.5-5.1) mmol/L Chloride 102 105 (98-107) mmol/L Carbon Dioxide 24 23 (22-30) mmol/L BUN 20 H 23 H (7-17) mg/dL Creatinine 0.76 0.70 (0.52-1.04) mg/dL Glucose 112 H 121 H (74-99) mg/dL Calcium 9.3 9.0 (8.4-10.2) mg/dL AST 55 H 46 H (14-36) U/L ALT 57 H 52 (9-52) U/L Alkaline Phosphatase 108 94 (38-126) U/L Total Protein 7.1 6.0 L (6.3-8.2) g/dL Albumin 3.8 3.3 L (3.5-5.0) g/dL Triglycerides 89 (<150) mg/dL HDL Cholesterol 29 L (40-60) mg/dL Thyroid panel 10/24/17 Range/Units 06:18 TSH 6.260 H (0.465-4.680) mIU/L Calcium panel 10/23/17 10/24/17 Range/Units 14:40 03:31 Calcium 9.3 9.0 (8.4-10.2) mg/dL Albumin 3.8 3.3 L (3.5-5.0) g/dL Pituitary panel 10/23/17 10/24/17 10/24/17 Range/Units 14:40 03:31 06:18 Sodium 141 141 (137-145) mmol/L Potassium 4.9 4.6 (3.5-5.1) mmol/L Chloride 102 105 (98-107) mmol/L Carbon Dioxide 24 23 (22-30) mmol/L BUN 20 H 23 H (7-17) mg/dL Creatinine 0.76 0.70 (0.52-1.04) mg/dL Glucose 112 H 121 H (74-99) mg/dL Calcium 9.3 9.0 (8.4-10.2) mg/dL TSH 6.260 H (0.465-4.680) mIU/L Adrenal panel 10/23/17 10/24/17 Range/Units 14:40 03:31 Sodium 141 141 (137-145) mmol/L Potassium 4.9 4.6 (3.5-5.1) mmol/L Chloride 102 105 (98-107) mmol/L Carbon Dioxide 24 23 (22-30) mmol/L BUN 20 H 23 H (7-17) mg/dL Creatinine 0.76 0.70 (0.52-1.04) mg/dL Glucose 112 H 121 H (74-99) mg/dL Calcium 9.3 9.0 (8.4-10.2) mg/dL Total Bilirubin 0.7 0.5 (0.2-1.3) mg/dL AST 55 H 46 H (14-36) U/L ALT 57 H 52 (9-52) U/L Alkaline Phosphatase 108 94 (38-126) U/L Total Protein 7.1 6.0 L (6.3-8.2) g/dL Albumin 3.8 3.3 L (3.5-5.0) g/dL - Imaging Chest x-ray: report reviewed, image reviewed Assessment and Plan (1) Tobacco dependence in remission Current Visit: No Status: Resolved Code(s): F17.201 - NICOTINE DEPENDENCE, UNSPECIFIED, IN REMISSION SNOMED Code(s): 435503374 (2) History of breast cancer Current Visit: No Status: Resolved Code(s): Z85.3 - PERSONAL HISTORY OF MALIGNANT NEOPLASM OF BREAST SNOMED Code(s): 806730194 (3) History of right mastectomy Current Visit: No Status: Resolved Code(s): Z90.11 - ACQUIRED ABSENCE OF RIGHT BREAST AND NIPPLE SNOMED Code(s): 029179645 (4) History of chemotherapy Current Visit: No Status: Resolved Code(s): Z92.21 - PERSONAL HISTORY OF ANTINEOPLASTIC CHEMOTHERAPY SNOMED Code(s): 522467063 (5) Hypothyroid Current Visit: Yes Status: Chronic Code(s): E03.9 - HYPOTHYROIDISM, UNSPECIFIED SNOMED Code(s): 49668275 (6) Left main coronary artery disease Current Visit: Yes Status: Chronic Code(s): I25.10 - ATHSCL HEART DISEASE OF [place] CORONARY ARTERY W/O ANG PCTRS SNOMED Code(s): 892165298 (7) Family history of heart disease Current Visit: Yes Status: Chronic Code(s): Z82.49 - FAMILY HX OF ISCHEM HEART DIS AND OTH DIS OF THE CIRC SYS SNOMED Code(s): 050858273 (8) Constipation Current Visit: Yes Status: Acute Code(s): K59.00 - CONSTIPATION, UNSPECIFIED SNOMED Code(s): 97355423 (9) NSTEMI (non-ST elevated myocardial infarction) Current Visit: Yes Status: Acute Code(s): I21.4 - NON-ST ELEVATION (NSTEMI) MYOCARDIAL INFARCTION SNOMED Code(s): 736347469 (10) Medical non-compliance Current Visit: Yes Status: Acute Code(s): Z91.19 - PATIENT'S NONCOMPLIANCE W OTH MEDICAL TREATMENT AND REGIMEN SNOMED Code(s): 307494441 Plan: The patient was seen and examined at the bedside with family present. Chart/ diagnostics were reviewed. Preoperative testing ordered. Case was discussed between Dr. Marks and Dr. Bass. We would recommend continuing aspirin, statin, beta gregg, and continued smoking cessation management. Patient would benefit from transesophageal echocardiogram to determine more precise valvular disease. Will make recommendations for surgery once preoperative testing is completed. This was discussed in detail with the patient and her family. All questions were answered. Thank you Dr. Bass for this consult. We look forward to working with you in the care of your patient. <Nathaniel Marks R - Last Filed: 10/24/17 15:41> Surgical - Exam Vital Signs Temp Pulse Resp BP Pulse Ox 98.9 F 117 H 24 175/91 92 L 10/23/17 13:59 10/23/17 13:59 10/23/17 13:59 10/23/17 13:59 10/23/17 13:59 Results - Labs 10/24/17 06:18 10/24/17 03:31 Abnormal Lab Results - Last 24 Hours (Table) 10/23/17 10/23/17 10/23/17 Range/Units 14:40 16:08 19:14 MCV (80.0-100.0) fL MCHC (31.0-37.0) g/dL RDW (11.5-15.5) % PT (9.0-12.0) sec INR (<1.2) APTT (22.0-30.0) sec BUN (7-17) mg/dL Glucose (74-99) mg/dL AST (14-36) U/L Troponin I 0.113 H* 0.118 H* (0.000-0.034) ng/mL Total Protein (6.3-8.2) g/dL Albumin (3.5-5.0) g/dL LDL Cholesterol, Calc (0-99) mg/dL HDL Cholesterol (40-60) mg/dL TSH (0.465-4.680) mIU/L Urine Appearance Cloudy H (Clear) Urine Protein Trace H (Negative) Urine Blood Moderate H (Negative) Urine Nitrite Positive H (Negative) Ur Leukocyte Esterase Large H (Negative) Urine RBC 10 H (0-5) /hpf Urine WBC 54 H (0-5) /hpf Urine WBC Clumps Moderate H (None) /hpf Urine Bacteria Many H (None) /hpf Urine Mucus Rare H (None) /hpf 10/23/17 10/24/17 10/24/17 Range/Units 23:19 03:26 03:31 MCV (80.0-100.0) fL MCHC (31.0-37.0) g/dL RDW (11.5-15.5) % PT (9.0-12.0) sec INR (<1.2) APTT 35.1 H (22.0-30.0) sec BUN 23 H (7-17) mg/dL Glucose 121 H (74-99) mg/dL AST 46 H (14-36) U/L Troponin I 0.124 H* (0.000-0.034) ng/mL Total Protein 6.0 L (6.3-8.2) g/dL Albumin 3.3 L (3.5-5.0) g/dL LDL Cholesterol, Calc (0-99) mg/dL HDL Cholesterol (40-60) mg/dL TSH (0.465-4.680) mIU/L Urine Appearance (Clear) Urine Protein (Negative) Urine Blood (Negative) Urine Nitrite (Negative) Ur Leukocyte Esterase (Negative) Urine RBC (0-5) /hpf Urine WBC (0-5) /hpf Urine WBC Clumps (None) /hpf Urine Bacteria (None) /hpf Urine Mucus (None) /hpf 10/24/17 10/24/17 10/24/17 Range/Units 06:18 06:18 06:18 MCV 101.3 H (80.0-100.0) fL MCHC 30.1 L (31.0-37.0) g/dL RDW 15.8 H (11.5-15.5) % PT (9.0-12.0) sec INR (<1.2) APTT 56.8 H (22.0-30.0) sec BUN (7-17) mg/dL Glucose (74-99) mg/dL AST (14-36) U/L Troponin I (0.000-0.034) ng/mL Total Protein (6.3-8.2) g/dL Albumin (3.5-5.0) g/dL LDL Cholesterol, Calc 130 H (0-99) mg/dL HDL Cholesterol 29 L (40-60) mg/dL TSH (0.465-4.680) mIU/L Urine Appearance (Clear) Urine Protein (Negative) Urine Blood (Negative) Urine Nitrite (Negative) Ur Leukocyte Esterase (Negative) Urine RBC (0-5) /hpf Urine WBC (0-5) /hpf Urine WBC Clumps (None) /hpf Urine Bacteria (None) /hpf Urine Mucus (None) /hpf 10/24/17 10/24/17 Range/Units 06:18 06:18 MCV (80.0-100.0) fL MCHC (31.0-37.0) g/dL RDW (11.5-15.5) % PT 12.7 H (9.0-12.0) sec INR 1.4 H (<1.2) APTT (22.0-30.0) sec BUN (7-17) mg/dL Glucose (74-99) mg/dL AST (14-36) U/L Troponin I (0.000-0.034) ng/mL Total Protein (6.3-8.2) g/dL Albumin (3.5-5.0) g/dL LDL Cholesterol, Calc (0-99) mg/dL HDL Cholesterol (40-60) mg/dL TSH 6.260 H (0.465-4.680) mIU/L Urine Appearance (Clear) Urine Protein (Negative) Urine Blood (Negative) Urine Nitrite (Negative) Ur Leukocyte Esterase (Negative) Urine RBC (0-5) /hpf Urine WBC (0-5) /hpf Urine WBC Clumps (None) /hpf Urine Bacteria (None) /hpf Urine Mucus (None) /hpf Diabetes panel 10/24/17 10/24/17 Range/Units 03:31 06:18 Sodium 141 (137-145) mmol/L Potassium 4.6 (3.5-5.1) mmol/L Chloride 105 (98-107) mmol/L Carbon Dioxide 23 (22-30) mmol/L BUN 23 H (7-17) mg/dL Creatinine 0.70 (0.52-1.04) mg/dL Glucose 121 H (74-99) mg/dL Calcium 9.0 (8.4-10.2) mg/dL AST 46 H (14-36) U/L ALT 52 (9-52) U/L Alkaline Phosphatase 94 (38-126) U/L Total Protein 6.0 L (6.3-8.2) g/dL Albumin 3.3 L (3.5-5.0) g/dL Triglycerides 89 (<150) mg/dL HDL Cholesterol 29 L (40-60) mg/dL Thyroid panel 10/24/17 Range/Units 06:18 TSH 6.260 H (0.465-4.680) mIU/L Calcium panel 10/24/17 Range/Units 03:31 Calcium 9.0 (8.4-10.2) mg/dL Albumin 3.3 L (3.5-5.0) g/dL Pituitary panel 10/24/17 10/24/17 Range/Units 03:31 06:18 Sodium 141 (137-145) mmol/L Potassium 4.6 (3.5-5.1) mmol/L Chloride 105 (98-107) mmol/L Carbon Dioxide 23 (22-30) mmol/L BUN 23 H (7-17) mg/dL Creatinine 0.70 (0.52-1.04) mg/dL Glucose 121 H (74-99) mg/dL Calcium 9.0 (8.4-10.2) mg/dL TSH 6.260 H (0.465-4.680) mIU/L Adrenal panel 10/24/17 Range/Units 03:31 Sodium 141 (137-145) mmol/L Potassium 4.6 (3.5-5.1) mmol/L Chloride 105 (98-107) mmol/L Carbon Dioxide 23 (22-30) mmol/L BUN 23 H (7-17) mg/dL Creatinine 0.70 (0.52-1.04) mg/dL Glucose 121 H (74-99) mg/dL Calcium 9.0 (8.4-10.2) mg/dL Total Bilirubin 0.5 (0.2-1.3) mg/dL AST 46 H (14-36) U/L ALT 52 (9-52) U/L Alkaline Phosphatase 94 (38-126) U/L Total Protein 6.0 L (6.3-8.2) g/dL Albumin 3.3 L (3.5-5.0) g/dL Assessment and Plan Assessment: 72-year-old female has not seen a physician for 10 years presents with constipation. Patient denies chest pain but had abnormal EKG and it up with cardiac catheterization. Troponins were mildly elevated. Cardiac catheterization demonstrated 70% distal left main, 70-80% proximal to mid LAD stenosis at the first diagonal, dominant circumflex with mild disease, nondominant right coronary artery with mild disease. Left ventricular ejection fraction is approximately 20% with global hypokinesia. There is also evidence on ventriculogram of 3-4+ MR. Echocardiogram is pending at this time. ELLEN is also planned. Patient has multiple medical problems including history of breast cancer with Jack radiation and chronic severe constipation which may be harboring her of more severe problem in the colon. In addition chest x-ray shows diffuse nodularity etiology of which is undetermined at this time. Computed tomography scan of the chest should be performed. Pulmonary consult is pending. Certainly the presence of metastatic cancer with preclude the need for cardiac surgery at this time. Even if the patient proves to be appropriate for cardiac surgery she will be extremely high risk. Plan will be to complete her preoperative cardiac surgical workup as well as evaluation of her lungs and colon with further recommendations to follow.
--- NOTE | 2017-10-24 16:34 | P.CNPUL ---
History of Present Illness Consult date: 10/24/17 Reason for consult: other (Preoperative pulmonary evaluation) History of present illness: A pleasant 72-year-old female patient, who was diagnosed having extensive coronary artery disease, and I was asked to evaluate this patient's pulmonary status and comment on her status and readiness for any cardiac surgery I met this patient and the presence of her sister and the rest of family members. She was very nervous and at times she'll noted that she didn't want to receive any further treatment and she wanted to leave the hospital. Nevertheless, it was obvious to me that all the information the patient was receiving was overwhelming to her and she wasn't able to make sound judgments. In summary, the patient came into the hospital because of increased constipation. She hasn't had a bowel movement for the past 1-2 weeks and apparently she is been passing only small BMs. She has not had any good decent sized bowel movements. She is passing gas. Abdomen slightly distended also. No melanotic stool. No bright red blood per rectum and this is obviously a change in her bowel habits. Over the past 2 days she was also having some on and off chest pain and shortness of breath and she came into the hospital where she was found to have positive troponins and subsequent evaluation by cardiology to a cardiac catheterization the patient was found to have a tight left main approximately 6-70%, 30% RCA lesion, 20% circumflex lesion, 80% proximal LAD lesion, and the LV angiogram showed impaired LV function with an ejection fraction of 20% and the patient has +3 mitral regurgitation. She also has extensively calcified vessels and peripheral vascular disease. The patient is currently free of any chest pain. She does not have any swelling in lower extremities. She is a chronic smoker in she has more than [id number] smoking history. The patient had a chest x-ray that showed increased pulmonary vascular marking and there is some questionable nodularity in the right upper lung area. She has a chronic congested cough. Overall performance and functional status has been limited as the patient has not been active and she hasn't seen a physician for more than 10 years. No hemoptysis. No pleurisy. No unusual weight loss. No anemia or blood work. Troponins were positive as mentioned. She has history of breast cancer. The patient has undergone mastectomy followed by radiation therapy. The patient has also component of hypothyroidism with a TSH was found to be at 6.2 with a normal free T4 and the LDL level is at 130. Review of Systems Constitutional: Reports fatigue, Reports lethargy Eyes: denies blurred vision, denies bulging eye, denies decreased vision Ears: deny: ear discharge, earache, tinnitus Ears, nose, mouth and throat: Reports as per HPI (He has only 1 decayed tooth in her lower GI and most of the other teeth are missing) Cardiovascular: Reports chest pain, Reports claudication, Reports decreased exercise tolerance, Reports dyspnea on exertion, Reports shortness of breath Gastrointestinal: Reports as per HPI Genitourinary: Denies dysuria, Denies hematuria Musculoskeletal: Denies myalgias Musculoskeletal: absent: ankle pain, ankle stiffness, ankle swelling Integumentary: Denies pruritus, Denies rash Neurological: Denies numbness, Denies weakness Psychiatric: Denies anxiety, Denies depression Endocrine: Reports as per HPI, Reports fatigue Hematologic/Lymphatic: Reports as per HPI Allergic/Immunologic: Reports as per HPI Past Medical History Past Medical History: Cancer, COPD, Thyroid Disorder Additional Past Medical History / Comment(s): Breast cancer with a previous right mastectomy followed by radiation therapy, COPD, coronary artery disease with multivessel involvement, severe mitral regurgitation as evident on the echocardiogram and a cardiac catheterization, scoliosis of the spine, hypothyroidism, vitamin D deficiency. History of Any Multi-Drug Resistant Organisms: None Reported Past Surgical History: Breast Surgery Additional Past Surgical History / Comment(s): Right mastectomy, cardiac catheterization Past Psychological History: No Psychological Hx Reported Smoking Status: Heavy tobacco smoker (37-pack per year smoking history and the patient is trying to quit smoking apparently she quit smoking approximately a month ago. She smokes 1 pack every other day) Past Alcohol Use History: Daily Additional Past Alcohol Use History / Comment(s): Daily glass of wine Past Drug Use History: None Reported - Past Family History Father Family Medical History: Coronary Artery Disease (CAD), CVA/TIA, Hypertension, Myocardial Infarction ([place]) Mother Family Medical History: Coronary Artery Disease (CAD), CVA/TIA, Diabetes Mellitus, Hypertension, Myocardial Infarction ([place]) Additional Family Medical History / Comment(s): pace maker Medications and Allergies Home Medications Medication Instructions Recorded Confirmed Type Ascorbic Acid [Vitamin C] 1,000 mg PO DAILY 10/23/17 10/23/17 History Cholecalciferol [Vitamin D3] 1,000 unit PO DAILY 10/23/17 10/23/17 History Multivitamins, Thera [Multivitamin 1 tab PO DAILY 10/23/17 10/23/17 History (formulary)] Vitamin B Complex 1 cap PO DAILY 10/23/17 10/23/17 History Allergies Allergy/AdvReac Type Severity Reaction Status Date / Time morphine Allergy Dyspnea Verified 10/23/17 15:53 Physical Exam Vitals: Vital Signs Temp Pulse Pulse Resp BP BP BP 10/24/17 12:24 18 139/83 10/24/17 11:54 18 128/61 10/24/17 11:24 18 153/68 10/24/17 11:09 18 141/66 10/24/17 10:54 97.0 F L 75 18 126/60 10/24/17 08:00 96.7 F L 20 132/63 10/24/17 04:00 96.8 F L 109 H 20 140/68 10/24/17 00:00 97.0 F L 105 H 18 107/71 10/23/17 20:00 97.0 F L 105 H 18 130/81 10/23/17 18:48 85 18 155/78 10/23/17 17:02 97.0 F L 105 H 18 148/79 Pulse Ox 10/24/17 12:24 91 L 10/24/17 11:54 92 L 10/24/17 11:24 91 L 10/24/17 11:09 92 L 10/24/17 10:54 92 L 10/24/17 08:00 92 L 10/24/17 04:00 93 L 10/24/17 00:00 95 10/23/17 20:00 93 L 10/23/17 18:48 94 L 10/23/17 17:02 94 L Intake and Output 10/24/17 10/24/17 10/24/17 06:59 14:59 22:59 Intake Total 114.7 400 Output Total 400 Balance 114.7 0 Intake: IV 100 Intake, IV Titration 114.7 300 Amount Heparin Sod,Pork in 0.45% 114.7 NaCl 25,000 unit In 0.45 % NaCl 1 500ml.bag @ 12 UNITS/KG/HR 14.8 mls/hr IV .Q24H [facility] Rx#: [id number] Sodium Chloride 0.9% 1, 300 000 ml @ 75 mls/hr IV . [id number] [facility] Rx#:[id number] Output: Urine 400 Other: Voiding Method Bedside Commode # Voids 3 Weight 67.5 kg Gen. appearance the patient is a bit nervous and she does not seem to be in acute respiratory distress.Head exam was generally normal. There was no scleral icterus or corneal arcus. Mucous membranes were moist.Neck was supple and without jugular venous distension, thyromegaly, or carotid bruits. Carotids were easily palpable bilaterally. There was no adenopathy. Poor dentition and the patient has no thrush. Lungs sounds are diminished bilaterally otherwise there are some scattered rhonchi. Nares of ecchymosis of breathing. Heart sounds are regular, positive sinus stool and there is no significant murmurs appreciated. Overall heart sounds are quite distant. No right ventricular heave or any thrill.Abdominal exam revealed normal bowel sounds. The abdomen was soft, non-tender, and without masses, organomegaly, or appreciable enlargement of the abdominal aorta.Examination of the extremities revealed easily palpable radial, femoral and pedal pulses. There was no cyanosis, clubbing or edema.Examination of the skin revealed no evidence of significant rashes, suspicious appearing nevi or other concerning lesions. The patient has a right mastectomy. Neurologically she is awake and alert and is no focal neurological deficit. Results - Laboratory Findings CBC and BMP: 10/24/17 06:18 10/24/17 03:31 PT/INR, D-dimer PT 12.7 sec (9.0-12.0) H 10/24/17 06:18 INR 1.4 (<1.2) H 10/24/17 06:18 Abnormal lab findings: Abnormal Labs 10/23/17 10/23/17 10/23/17 14:40 14:40 14:40 MCV MCHC RDW 15.6 H PT INR 1.2 H APTT BUN 20 H Glucose 112 H AST 55 H ALT 57 H Troponin I Total Protein Albumin LDL Cholesterol, Calc HDL Cholesterol TSH Urine Appearance Urine Protein Urine Blood Urine Nitrite Ur Leukocyte Esterase Urine RBC Urine WBC Urine WBC Clumps Urine Bacteria Urine Mucus 10/23/17 10/23/17 10/23/17 14:40 16:08 19:14 MCV MCHC RDW PT INR APTT BUN Glucose AST ALT Troponin I 0.113 H* 0.118 H* Total Protein Albumin LDL Cholesterol, Calc HDL Cholesterol TSH Urine Appearance Cloudy H Urine Protein Trace H Urine Blood Moderate H Urine Nitrite Positive H Ur Leukocyte Esterase Large H Urine RBC 10 H Urine WBC 54 H Urine WBC Clumps Moderate H Urine Bacteria Many H Urine Mucus Rare H 10/23/17 10/24/17 10/24/17 23:19 03:26 03:31 MCV MCHC RDW PT INR APTT 35.1 H BUN 23 H Glucose 121 H AST 46 H ALT Troponin I 0.124 H* Total Protein 6.0 L Albumin 3.3 L LDL Cholesterol, Calc HDL Cholesterol TSH Urine Appearance Urine Protein Urine Blood Urine Nitrite Ur Leukocyte Esterase Urine RBC Urine WBC Urine WBC Clumps Urine Bacteria Urine Mucus 10/24/17 10/24/17 10/24/17 06:18 06:18 06:18 MCV 101.3 H MCHC 30.1 L RDW 15.8 H PT INR APTT 56.8 H BUN Glucose AST ALT Troponin I Total Protein Albumin LDL Cholesterol, Calc 130 H HDL Cholesterol 29 L TSH Urine Appearance Urine Protein Urine Blood Urine Nitrite Ur Leukocyte Esterase Urine RBC Urine WBC Urine WBC Clumps Urine Bacteria Urine Mucus 10/24/17 10/24/17 06:18 06:18 MCV MCHC RDW PT 12.7 H INR 1.4 H APTT BUN Glucose AST ALT Troponin I Total Protein Albumin LDL Cholesterol, Calc HDL Cholesterol TSH 6.260 H Urine Appearance Urine Protein Urine Blood Urine Nitrite Ur Leukocyte Esterase Urine RBC Urine WBC Urine WBC Clumps Urine Bacteria Urine Mucus - Diagnostic Findings Chest x-ray: image reviewed Assessment and Plan Plan: Assessment 1 preoperative pulmonary evaluation for possible cardiac surgery. The patient comes in with an acute non-ST segment elevation myocardial infarction and furthermore the cardiac catheterization shows extensive coronary artery disease and severe mitral regurgitation. She has impaired LV function with ejection fraction of 20% 2 multivessel coronary artery disease 3 acute non-ST segment patient myocardial infarction 4 new onset constipation and obviously this is a recent change in bowel habits which raises concerns to hours GI malignancies 5 poor medical follow-up and compliance over the years as the patient has not seen any physician for more than 10 years and she does not seem to be a good candidate for subsequent follow-ups as the patient clearly states that she is very nervous from physicians and medical care in general and she may not undergo the appropriate follow-ups needed for medical care 6 smoker 7 COPD 8 increased interstitial markings bilaterally with some nodularity that needs to be further investigated 9 elevated TSH probably an early hypothyroidism 10 breast cancer and a previous right mastectomy and previous radiation therapy. Plan This patient is a very poor surgical candidate. Her attitude towards medical care and surgery in general has not been good on very much concerned that the patient will not follow medical recommendations subsequent follow-ups should we decide to go to the surgical route. As such, my first concern is patient attitude and behavior patterns. My other concern is obviously on her medical problems and comorbidities. A new onset constipation and change in bowel pattern with raises the concern and suspicion for an underlying Gastro intestinal malignancy. As such the patient will need a CAT scan of the abdomen and possibly a colonoscopy to investigate this further. Her blood work does not show any significant anemia or blood loss, however his stool for guaiac may be of value if the patient is able to give us a sample. Also, she has COPD and baseline spirometry will be needed to assess her lung capacity measured FEV1 and assess her ability to undergo thoracotomy cardiac surgery. This will be done at the bedside. A CAT scan of the chest may also be of value knowing that her chest x-ray is showing into the increased interstitial marking and some nodularity and this along with her smoking history and new onset constipation may need to be further investigated by CAT scan of the chest. The patient also has quit smoking and smoking cessation counseling was done. My recommendations for now are to proceed with a CAT scan of the abdomen and pelvis, obtain a GI consultation, obtain a bedside spirometry, discussed the case with cardiology and cardiothoracic surgery. Overall, not a good surgical candidate. Time with Patient: Greater than 30
[2017-10-24 16:42] LABS: Hepatitis A Antibody IgM Non-Reactive (Non-Reactive); Hepatitis B Core IgM Non-Reactive (Non-Reactive)
[2017-10-24 17:14] LABS: Hemoglobin A1C 6.3 % (4.0-6.0)
[2017-10-24] MEDS: CARVEDILOL 6.25 MG TAB PO SCH (19:20)
[2017-10-24] MEDS: HEPARIN SODIUM,PORCINE 5,000 UNIT/ML 1 ML VIAL IV PRN (21:05)
--- NOTE | 2017-10-24 21:08 | US ---
EXAMINATION TYPE: US carotid duplex BILAT DATE OF EXAM: 10/24/2017 COMPARISON: NONE CLINICAL HISTORY: Preoperative cardiac surgery. Pre op cardiac surgery EXAM MEASUREMENTS: RIGHT: Peak Systolic Velocity (PSV) cm/sec ----- Right CCA: 60.9 ----- Right ICA: 192.1 ----- Right ECA: 133.8 ICA/CCA ratio: 3.2 RIGHT: End Diastole cm/sec ----- Right CCA: 15.9 ----- Right ICA: 44.3 ----- Right ECA: 0 LEFT: Peak Systolic Velocity (PSV) cm/sec ----- Left CCA: 80.5 ----- Left ICA: 95.1 ----- Left ECA: 108.2 ICA/CCA ratio: 1.2 LEFT: End Diastole cm/sec ----- Left CCA: 19.5 ----- Left ICA: 30.5 ----- Left ECA: 0 VERTEBRALS (direction of flow): Right Vertebral: Antegrade Left Vertebral: Antegrade Rhythm: Normal Bilateral plaque in bulbs and ICA. Elevated velocities in right ICA and ECA. IMPRESSION: 1. Atheromatous plaquing contributing to moderate stenosis between 50 and 69% right internal carotid artery. Criteria for Assigning % of Stenosis / Diameter reduction (Estimation based on the indirect measurements of the internal carotid artery velocities (ICA PSV). 1. Normal (no stenosis)=ICA PSV < 125 cm/s: ratio < 2.0: ICA EDV<40 cm/s. 2. Less than 50% stenosis=ICA PSV < 125 cm/s: ratio < 2.0: ICA EDV<40 cm/s. 3. 50 to 69% stenosis=ICA PSV of 125 to 230 cm/s: ration 2.0 ? 4.0: ICA EDV 40-100 cm/s. 4. Greater than 70% stenosis to near occlusion= ICA PSV > 230 cm/s: ratio > 4.0: ICA EDV > 100 cm/s. 5. Near occlusion= ICA PSV velocities may be low or undetectable: variable ratio and ICA EDV. 6. Total occlusion=unable to detect flow.
[2017-10-24] MEDS: LISINOPRIL 5 MG TAB PO SCH (21:56)
[2017-10-25 04:01] LABS: Basophils # (A) 0.1 k/uL (0-0.2); Basophils % (A) 1 %; Eosinophils # (A) 0.2 k/uL (0-0.7); Eosinophils % (A) 3 %; HCT 35.7 % (34.0-46.0); HGB 11.4 gm/dL (11.4-16.0); Hypochromasia Moderate; Lymphocytes # (A) 1.8 k/uL (1.0-4.8); Lymphocytes % (A) 22 %; MCH 31.6 pg (25.0-35.0); MCHC 31.8 g/dL (31.0-37.0); MCV 99.2 fL (80.0-100.0); Macrocytosis Slight; Mean Platelet Volume 8.6; Monocytes # (A) 0.6 k/uL (0-1.0); Monocytes % (A) 7 %; Neutrophils # (A) 5.4 k/uL (1.3-7.7); Neutrophils % (A) 65 %; Platelet Count 136 k/uL (150-450); RDW 15.8 % (11.5-15.5); WBC 8.3 k/uL (3.8-10.6)
[2017-10-25 04:33] LABS: Anion Gap 9 mmol/L; Blood Urea Nitrogen 23 mg/dL (7-17); Calcium 7.5 mg/dL (8.4-10.2); Carbon Dioxide 26 mmol/L (22-30); Chloride 104 mmol/L (98-107); Glucose 98 mg/dL (74-99); Potassium 3.8 mmol/L (3.5-5.1); Sodium 139 mmol/L (137-145)
[2017-10-25] MEDS: CARVEDILOL 6.25 MG TAB PO SCH ×2 (07:10→17:20)
--- NOTE | 2017-10-25 07:52 | ECHOF ---
Referral Reason:mi MEASUREMENTS -------- HEIGHT: 167.6 cm WEIGHT: 67.1 kg BP: 140/68 RVIDd: 3.5 cm (< 3.3) IVSd: 0.8 cm (0.6 - 1.1) LVIDd: 4.9 cm (3.9 - 5.3) LVPWd: 0.9 cm (0.6 - 1.1) IVSs: 0.7 cm LVIDs: 4.2 cm LVPWs: 0.7 cm LAESV Index (A-L): 43.25 ml/m Ao Diam: 3.1 cm (2.0 - 3.7) AV Cusp: 1.5 cm (1.5 - 2.6) LA Diam: 3.4 cm (2.7 - 3.8) MV EXCURSION: 12.148 mm (> 18.000) MV EF SLOPE: 120 mm/s (70 - 150) EPSS: 4.1 cm MV E David: 1.17 m/s MV DecT: 142 ms MV A David: 0.48 m/s MV E/A Ratio: 2.46 FINDINGS -------- Sinus rhythm. This was a technically good study. The left ventricular size is normal. Left ventricular wall thickness is normal. There is severe g lobal hypokinesis of LV . Overall left ventricular systolic function is severely impaired with, an EF between 20 - 25 %. The right ventricle is mildly enlarged. LA is severely dilated >40 ml/m2 RA appears enlarged. Aortic valve is trileaflet and is mildly thickened. [id number] mitral regurgitation is present. Mild tricuspid regurgitation present. The right ventricular systolic pressure, as measured by Doppl er, is {RVSP}. Pulmonic valve appears structurally normal. The aortic root size is normal. The inferior vena cava is mildly dilated. CONCLUSIONS -------- 1. Sinus rhythm. 2. This was a technically good study. 3. The left ventricular size is normal. 4. Left ventricular wall thickness is normal. 5. There is severe global hypokinesis of LV . 6. Overall left ventricular systolic function is severely impaired with, an EF between 20 - 25 %. 7. LA is severely dilated >40 ml/m2 8. RA appears enlarged. 9. Aortic valve is trileaflet and is mildly thickened. 10. [id number] mitral regurgitation is present. 11. Mild tricuspid regurgitation present. 12. The right ventricular systolic pressure, as measured by Doppler, is {RVSP}. 13. Pulmonic valve appears structurally normal. 14. The aortic root size is normal. 15. The inferior vena cava is mildly dilated. TURNTABLE WORKER: Mana Wilhelm RDCS
[2017-10-25] MEDS: MUPIROCIN 2% OINT 22 GM TUBE NASAL SCH ×3 (08:06→21:37)
[2017-10-25] MEDS ORDERED: MIDAZOLAM 2 MG/2 ML VIAL ONE (09:35)
[2017-10-25] MEDS ORDERED: fentaNYL (PF) 50 MCG/ML 2 ML AMP ONE (09:36)
[2017-10-25] MEDS ORDERED: BENZOCAINE SPRAY 1 CAN MUCOUS MEM ONE ×2 (10:04→10:15)
[2017-10-25] MEDS ORDERED: MIDAZOLAM 2 MG/2 ML VIAL IVP ONE (10:16)
[2017-10-25] MEDS ORDERED: fentaNYL (PF) 50 MCG/ML 2 ML AMP IVP ONE (10:17)
--- NOTE | 2017-10-25 10:50 | ECHOT ---
TRANSESOPHAGEAL ECHOCARDIOGRAM INDICATION: Evaluation of mitral valve and left ventricular systolic function. PROCEDURE: After explaining the procedure to the patient, its risks and complications, her blood pressure, heart rate and O2 saturation was monitored. The throat was sprayed with Cetacaine. She received 1 mg of intravenous Versed, 50 mcg intravenous fentanyl. After achieving moderate conscious sedated state, the probe was introduced into the esophagus without difficulty. Images were obtained. Following that, the probe was removed. There was no immediate complication. FINDINGS: The left atrial size is dilated. Left atrial appendage is normal. Right atrial size is dilated. Left ventricular size is normal. There is evidence of severe global hypokinesis, more noted in the anteroapical septal wall that appears to be akinetic. Estimated ejection fraction is 20% to 25%. The aortic valve, mitral valve and tricuspid valve appears to be normal. No pericardial effusion was noted. Descending thoracic aorta revealed moderate atherosclerotic changes. Contrast bubble study revealed no shunting across the interatrial septum with Valsalva maneuver. Doppler pulse wave and color obtained revealed moderate to severe mitral regurgitation with mild tricuspid regurgitation. There was no shunting by color Doppler study. CONCLUSION: 1. Biatrial enlargement. 2. Normal left ventricular size with severely impaired left ventricular systolic function. 3. Moderate mitral regurgitation. 4. Mild tricuspid regurgitation. 5. Moderate atherosclerotic changes of the descending thoracic aorta. 6. No shunting across the interatrial septum. 7. No pericardial effusion. MMODL / IJN: [id number] /
--- NOTE | 2017-10-25 11:27 | P.PN ---
Subjective Progress Note Date: 10/25/17 Principal diagnosis: Obstructive coronary artery disease Ischemic cardiomyopathy Patient is a 72-year-old female who does not follow with a physician, long-time smoker however quit a couple weeks ago with onset of an upper respiratory type infection. Patient presented to the ED with a 2+ week history of constipation, states the last full bowel movement was about 2 weeks ago and since then has only been having intermittent very small hard bowel movements. While in the ED , patient also complained about right-sided chest wall pain located at the bottom of her rib cage which she has been having intermittently and which she thinks is related to her constipation. Patient also stated she had some what she thought was indigestion the night prior to presentation, with some epigastric discomfort which she attributed to eating chili before bed. While in the ED, found to have a troponin of 0.113 and started on heparin, admitted to telemetry for presumed NSTEMI. Echocardiogram done showing an ejection fraction of 20-25%, LA severely dilated , RA appeared enlarged, moderate to severe mitral regurgitation. Subsequently patient underwent cardiac catheterization on 10/24/2017 showing 60-70% stenosis of the left main, 80% stenosis of left anterior descending, 20-30% of obtuse marginal; severe global hypokinesis with an EF of 20% and 4+ mitral regurgitation, also noted to have severe peripheral arterial disease. Cardiology recommended cardiothoracic surgery consultation for evaluation for coronary artery bypass grafting. Patient seen and examined resting comfortably in her bed, family bedside. No ongoing chest pain or pressure at this time. Patient is still concerned about her symptoms of constipation, states she has gotten a laxative with minimal impact. However patient does admit to poor by mouth intake and states she was told the x-ray shows no stool. No fever chills, no shortness of breath or difficulty in breathing. Objective - Vital Signs Vital signs: Vital Signs Temp 96.5 F L 10/25/17 08:00 Pulse 71 10/25/17 10:28 Resp 20 10/25/17 10:28 BP 114/58 10/25/17 10:28 Pulse Ox 89 L 10/25/17 10:28 Intake & Output 10/24/17 10/25/17 10/25/17 18:59 06:59 18:59 Intake Total 400 530.52 100 Output Total 400 Balance 0 530.52 100 Intake: IV 100 240 100 Heparin Sod,Pork in 0.45% 240 NaCl 25,000 unit In 0.45 % NaCl 1 500ml.bag @ 12 UNITS/KG/HR 14.8 mls/hr IV .Q24H BETSY Rx#: [id number] Intake, IV Titration 300 290.52 Amount Heparin Sod,Pork in 0.45% 290.52 NaCl 25,000 unit In 0.45 % NaCl 1 500ml.bag @ 12 UNITS/KG/HR 16.2 mls/hr IV .Q24H [facility]SY Rx#: [id number] Sodium Chloride 0.9% 1, 300 000 ml @ 75 mls/hr IV . [id number] BETSY Rx#:[id number] Output: Urine 400 Other: Voiding Method Bedside Commode # Voids 3 2 - Exam General: A/O x 3, NAD, Lying in bed comfortably HEENT: EOMI, MMM, atraumatic normocephalic Neck: Supple. No JVD, trachea midline CVS: Regular rate and rhythm. Distant heart sounds. + S1/S2, slight systolic ejection murmur appreciated Respiratory: Bilateral air entry noted. Clear to auscultation, no wheeze, no rhonchi Abdomen: Soft, nontender, nondistended. Bowel sounds audible Extremities: No lower extremity edema. No clubbing or cyanosis Skin: No rash or skin change noted Psych: Without hallucinations, abnormal affect, or abnormal behaviors during the examination - Labs CBC & Chem 7: 10/25/17 03:34 10/25/17 03:34 Labs: Abnormal Lab Results - Last 24 Hours (Table) 10/24/17 10/24/17 10/24/17 Range/Units 06:18 06:18 06:18 RBC (3.80-5.40) m/uL MCV 101.3 H (80.0-100.0) fL MCHC 30.1 L (31.0-37.0) g/dL RDW 15.8 H (11.5-15.5) % Plt Count (150-450) k/uL PT 12.7 H (9.0-12.0) sec INR 1.4 H (<1.2) APTT (22.0-30.0) sec BUN (7-17) mg/dL Hemoglobin A1c 6.3 H (4.0-6.0) % Calcium (8.4-10.2) mg/dL TSH (0.465-4.680) mIU/L 10/24/17 10/24/17 10/25/17 Range/Units 06:18 19:39 03:34 RBC (3.80-5.40) m/uL MCV (80.0-100.0) fL MCHC (31.0-37.0) g/dL RDW (11.5-15.5) % Plt Count (150-450) k/uL PT (9.0-12.0) sec INR (<1.2) APTT 33.8 H (22.0-30.0) sec BUN 23 H (7-17) mg/dL Hemoglobin A1c (4.0-6.0) % Calcium 7.5 L (8.4-10.2) mg/dL TSH 6.260 H (0.465-4.680) mIU/L 10/25/17 10/25/17 Range/Units 03:34 03:34 RBC 3.60 L (3.80-5.40) m/uL MCV (80.0-100.0) fL MCHC (31.0-37.0) g/dL RDW 15.8 H (11.5-15.5) % Plt Count 136 L (150-450) k/uL PT (9.0-12.0) sec INR (<1.2) APTT >200.0 H* (22.0-30.0) sec BUN (7-17) mg/dL Hemoglobin A1c (4.0-6.0) % Calcium (8.4-10.2) mg/dL TSH (0.465-4.680) mIU/L Microbiology - Last 24 Hours (Table) 10/24/17 11:03 Urine Culture - Preliminary Urine,Voided 10/24/17 15:44 Nasal Screen MRSA/MSSA ([facility]) - Preliminary Nasal Swab Assessment and Plan (1) NSTEMI (non-ST elevated myocardial infarction) Current Visit: Yes Status: Acute Code(s): I21.4 - NON-ST ELEVATION (NSTEMI) MYOCARDIAL INFARCTION SNOMED Code(s): 187850480 (2) Constipation Current Visit: Yes Status: Acute Code(s): K59.00 - CONSTIPATION, UNSPECIFIED SNOMED Code(s): 18541825 (3) CAD (coronary artery disease), [place] coronary artery Current Visit: Yes Status: Acute Code(s): I25.10 - ATHSCL HEART DISEASE OF [place] CORONARY ARTERY W/O ANG PCTRS SNOMED Code(s): 6348271641179 (4) Ischemic cardiomyopathy Current Visit: Yes Status: Acute Code(s): I25.5 - ISCHEMIC CARDIOMYOPATHY SNOMED Code(s): 471188448 (5) Severe mitral regurgitation Current Visit: Yes Status: Acute Code(s): I34.0 - NONRHEUMATIC MITRAL (VALVE ) INSUFFICIENCY SNOMED Code(s): 17114840 (6) Acute systolic heart failure Current Visit: Yes Status: Acute Code(s): I50.21 - ACUTE SYSTOLIC ( CONGESTIVE) HEART FAILURE SNOMED Code(s): 900158617 Plan: 72-year-old female who does not follow with a physician, long-time smoker who presented with principal complaint of constipation though it did admit to some chest discomfort, found to have elevated troponin. Further workup included an echocardiogram done showing an ejection fraction of 20-25%, LA severely dilated , RA appeared enlarged, moderate to severe mitral regurgitation. Subsequently patient underwent cardiac catheterization on 10/24/2017 showing 60-70% stenosis of the left main, 80% stenosis of left anterior descending, 20-30% of obtuse marginal; severe global hypokinesis with an EF of 20% and 4+ mitral regurgitation, also noted to have severe peripheral arterial disease. Cardiology recommended cardiothoracic surgery consultation for evaluation for coronary artery bypass grafting. CTS on consult. PFTs pending. Pulmonary on consult. ELLEN ordered for today for better characterization of the patient's valvular disease. Abdominal x-ray showed only mild stool burden. Patient may be getting epigastric discomfort secondary to her cardiac issues above. At this time continue on a stool softener with laxative when necessary.
--- NOTE | 2017-10-25 11:47 | PN ---
PROGRESS NOTE Ms. Sierra is a 72-year-old female who presented with symptoms of progressive dyspnea, had evidence of non ST-segment elevation myocardial infarction, underwent cardiac catheterization, was found to have severe coronary artery disease and severely impaired left ventricular systolic function. She continues to have some dyspnea on exertion. She denies any symptoms of chest pain. She denies any dizziness. She was evaluated by Dr. Marks yesterday and Dr. Perez regarding surgical intervention. She had a history of constipation on presentation. The patient has been a chronic smoker and is noncompliant with any followup in the past. She continues to be at this time on aspirin once a day, Lipitor 80 mg daily, Coreg 6.25 mg twice a day, Lasix 20 mg twice a day. Lisinopril 5 mg twice a day and spironolactone 25 mg daily. PHYSICAL EXAMINATION: Blood pressure 114/50 with a heart rate in the 70s. LUNGS: With decreased air exchange. No wheezes. HEART: Regular rate and rhythm. S1, S2. No S3 with a holosystolic murmur at the apex. No diastolic murmur. ABDOMEN: Soft, nontender. Positive bowel sounds. EXTREMITIES: No edema with decreased distal pulses. LAB DATA: Lab data revealed a hemoglobin of 11.4, BUN and creatinine 23 and 0.75. Her transthoracic echocardiogram showed severely impaired left ventricle systolic function with moderate to severe mitral and mild tricuspid regurgitation. IMPRESSION: 1. Severe coronary artery disease with severe left main disease. 2. Severely impaired left ventricular systolic function. 3. Non ST-segment elevation myocardial infarction. 4. Chronic tobacco use. 5. Constipation and abdominal discomfort of unclear etiology. 6. Noncompliance. RECOMMENDATION: We will proceed with transesophageal echocardiogram today to evaluate her mitral valve. The patient will need further evaluation regarding her constipation. We will await the input of the results of her pulmonary function test to see if she is a candidate for any surgical intervention. Unfortunately, she is quite a high risk for any intervention. MMODL / IJN: [id number] /
[2017-10-25] MEDS ORDERED: RX INFO: IV CONTRAST WAS GIVEN 1 EACH MISC MISCELLANE PRN (11:53)
[2017-10-25] MEDS: FUROSEMIDE 20 MG TAB PO SCH ×2 (12:07→21:36)
[2017-10-25] MEDS: ATORVASTATIN 40 MG TAB PO SCH (12:07)
[2017-10-25] MEDS: LISINOPRIL 5 MG TAB PO SCH ×2 (12:08→21:36)
[2017-10-25] MEDS: ASPIRIN 81 MG PO SCH (12:08)
[2017-10-25] MEDS: SPIRONOLACTONE 25 MG TAB PO SCH (12:08)
--- NOTE | 2017-10-25 12:28 | P.PN ---
Subjective Progress Note Date: 10/25/17 A pleasant 72-year-old female patient, who was diagnosed having extensive coronary artery disease, and I was asked to evaluate this patient's pulmonary status and comment on her status and readiness for any cardiac surgery I met this patient and the presence of her sister and the rest of family members. She was very nervous and at times she'll noted that she didn't want to receive any further treatment and she wanted to leave the hospital. Nevertheless, it was obvious to me that all the information the patient was receiving was overwhelming to her and she wasn't able to make sound judgments. In summary, the patient came into the hospital because of increased constipation. She hasn't had a bowel movement for the past 1-2 weeks and apparently she is been passing only small BMs. She has not had any good decent sized bowel movements. She is passing gas. Abdomen slightly distended also. No melanotic stool. No bright red blood per rectum and this is obviously a change in her bowel habits. Over the past 2 days she was also having some on and off chest pain and shortness of breath and she came into the hospital where she was found to have positive troponins and subsequent evaluation by cardiology to a cardiac catheterization the patient was found to have a tight left main approximately 6-70%, 30% RCA lesion, 20% circumflex lesion, 80% proximal LAD lesion, and the LV angiogram showed impaired LV function with an ejection fraction of 20% and the patient has +3 mitral regurgitation. She also has extensively calcified vessels and peripheral vascular disease. The patient is currently free of any chest pain. She does not have any swelling in lower extremities. She is a chronic smoker in she has more than 95-[id number]-vaec smoking history. The patient had a chest x-ray that showed increased pulmonary vascular marking and there is some questionable nodularity in the right upper lung area. She has a chronic congested cough. Overall performance and functional status has been limited as the patient has not been active and she hasn't seen a physician for more than 10 years. No hemoptysis. No pleurisy. No unusual weight loss. No anemia or blood work. Troponins were positive as mentioned. She has history of breast cancer. The patient has undergone mastectomy followed by radiation therapy. The patient has also component of hypothyroidism with a TSH was found to be at 6.2 with a normal free T4 and the LDL level is at 130. On today's evaluation of 10/25/2017, the patient is still on oxygen on 4l to oxygen nasal cannula. She claims that she has not produced any bowel movements yet. Abdomen is less distended compared to yesterday. Her bedside spirometry was done and the patient has an FEV1 of 33% of predicted consistent with severe COPD. A ELLEN was done and the patient was again confirmed to have an ejection fraction of 20-25%. The patient also was found to have moderate degree of mitral regurgitation without any intracardiac shunt. There is moderate atherosclerotic changes of the ascending aorta. The patient also had carotid Dopplers that showed 50-70% stenosis of the right internal carotid artery. She remains quite not interested in undergoing any surgical evaluation/treatment for her cardiac disease. She thinks she does not have any major problem and she continues to talk about her bowel and the inability to have bowel movements. Objective - Vital Signs Vital signs: Vital Signs Temp 96.5 F L 10/25/17 08:00 Pulse 71 10/25/17 10:28 Resp 20 10/25/17 10:28 BP 114/58 10/25/17 10:28 Pulse Ox 89 L 10/25/17 10:28 Intake & Output 10/24/17 10/25/17 10/25/17 18:59 06:59 18:59 Intake Total 400 530.52 100 Output Total 400 Balance 0 530.52 100 Intake: IV 100 240 100 Heparin Sod,Pork in 0.45% 240 NaCl 25,000 unit In 0.45 % NaCl 1 500ml.bag @ 12 UNITS/KG/HR 14.8 mls/hr IV .Q24H [facility] Rx#: [id number] Intake, IV Titration 300 290.52 Amount Heparin Sod,Pork in 0.45% 290.52 NaCl 25,000 unit In 0.45 % NaCl 1 500ml.bag @ 12 UNITS/KG/HR 16.2 mls/hr IV .Q24H [facility]SY Rx#: [id number] Sodium Chloride 0.9% 1, 300 000 ml @ 75 mls/hr IV . [id number] [facility] Rx#:[id number] Output: Urine 400 Other: Voiding Method Bedside Commode # Voids 3 2 - Exam Gen. appearance the patient is a bit nervous and she does not seem to be in acute respiratory distress.Head exam was generally normal. There was no scleral icterus or corneal arcus. Mucous membranes were moist.Neck was supple and without jugular venous distension, thyromegaly, or carotid bruits. Carotids were easily palpable bilaterally. There was no adenopathy. Poor dentition and the patient has no thrush. Lungs sounds are diminished bilaterally otherwise there are some scattered rhonchi. Nares of ecchymosis of breathing. Heart sounds are regular, positive sinus stool and there is no significant murmurs appreciated. Overall heart sounds are quite distant. No right ventricular heave or any thrill.Abdominal exam revealed normal bowel sounds. The abdomen was soft, non-tender, and without masses, organomegaly, or appreciable enlargement of the abdominal aorta.Examination of the extremities revealed easily palpable radial, femoral and pedal pulses. There was no cyanosis, clubbing or edema.Examination of the skin revealed no evidence of significant rashes, suspicious appearing nevi or other concerning lesions. The patient has a right mastectomy. Neurologically she is awake and alert and is no focal neurological deficit. - Labs CBC & Chem 7: 10/25/17 03:34 10/25/17 03:34 Labs: Abnormal Lab Results - Last 24 Hours (Table) 10/24/17 10/24/17 10/25/17 Range/Units 06:18 19:39 03:34 RBC (3.80-5.40) m/uL RDW (11.5-15.5) % Plt Count (150-450) k/uL APTT 33.8 H (22.0-30.0) sec BUN 23 H (7-17) mg/dL Hemoglobin A1c 6.3 H (4.0-6.0) % Calcium 7.5 L (8.4-10.2) mg/dL 10/25/17 10/25/17 Range/Units 03:34 03:34 RBC 3.60 L (3.80-5.40) m/uL RDW 15.8 H (11.5-15.5) % Plt Count 136 L (150-450) k/uL APTT >200.0 H* (22.0-30.0) sec BUN (7-17) mg/dL Hemoglobin A1c (4.0-6.0) % Calcium (8.4-10.2) mg/dL Microbiology - Last 24 Hours (Table) 10/24/17 11:03 Urine Culture - Preliminary Urine,Voided 10/24/17 15:44 Nasal Screen MRSA/MSSA ([facility]) - Preliminary Nasal Swab Assessment and Plan Plan: Assessment 1 preoperative pulmonary evaluation for possible cardiac surgery. The patient comes in with an acute non-ST segment elevation myocardial infarction and furthermore the cardiac catheterization shows extensive coronary artery disease and severe mitral regurgitation. She has impaired LV function with ejection fraction of 20%, in addition to moderate to severe MR based on today's ELLEN. 2 multivessel coronary artery disease 3 acute non-ST segment patient myocardial infarction 4 new onset constipation and obviously this is a recent change in bowel habits which raises concerns to hours GI malignancies 5 poor medical follow-up and compliance over the years as the patient has not seen any physician for more than 10 years and she does not seem to be a good candidate for subsequent follow-ups as the patient clearly states that she is very nervous from physicians and medical care in general and she may not undergo the appropriate follow-ups needed for medical care 6 smoker 7 COPD, based on FEV1 is nor that of 33% on bedside spirometry. 8 increased interstitial markings bilaterally with some nodularity that needs to be further investigated 9 elevated TSH probably an early hypothyroidism 10 breast cancer and a previous right mastectomy and previous radiation therapy. 11 right internal carotid artery disease estimated to be between 50-69% Plan This patient is a very poor surgical candidate. Her attitude towards medical care and surgery in general has not been good on very much concerned that the patient will not follow medical recommendations subsequent follow-ups should we decide to go to the surgical route. As such, my first concern is patient attitude and behavior patterns. My other concern is obviously on her medical problems and comorbidities. A new onset constipation and change in bowel pattern with raises the concern and suspicion for an underlying Gastro intestinal malignancy. As such the patient will need a CAT scan of the abdomen and possibly a colonoscopy to investigate this further. Her blood work does not show any significant anemia or blood loss, however his stool for guaiac may be of value if the patient is able to give us a sample. Also, she has COPD and baseline spirometry will be needed to assess her lung capacity measured FEV1 and assess her ability to undergo thoracotomy cardiac surgery. This will be done at the bedside. A CAT scan of the chest may also be of value knowing that her chest x-ray is showing into the increased interstitial marking and some nodularity and this along with her smoking history and new onset constipation may need to be further investigated by CAT scan of the chest. The patient also has quit smoking and smoking cessation counseling was done. My recommendations for now are to proceed with a CAT scan of the abdomen and pelvis, obtain a GI consultation, obtain a bedside spirometry, discussed the case with cardiology and cardiothoracic surgery. Overall, not a good surgical candidate. Furthermore, today's evaluation the patient's bedside spirometry showed severe obstructive airway limitation with an FEV1 of 33% of predicted. This by itself adds further risk for surgery and possible operative pulmonary complications. The patient was also found to have carotid artery stenosis in the order of 50-70 % on the right. The patient will need a GI consultation regarding her chronic constipation. As mentioned, a very poor surgical candidate for cardiac surgery.
--- NOTE | 2017-10-25 13:19 | P.PN ---
Subjective Progress Note Date: 10/25/17 Principal diagnosis: Severe coronary artery disease with left main disease. Impaired LV function. Mitral regurgitation. History of right breast cancer with mastectomy, chemo, and radiation in 1997. History of hypothyroidism, currently not on any medications as she stopped them on her own. Recent cessation of tobacco use with previous 28-vwak-fadg history. Medical noncompliance. Significant family history of coronary artery disease. Patient's currently laying in bed in no acute distress. Denied chest pain last night but did state she feels her lungs are more congested. Patient was scheduled for ELLEN this morning. Objective - Vital Signs Vital signs: Vital Signs Temp 96.5 F L 10/25/17 08:00 Pulse 71 10/25/17 10:28 Resp 20 10/25/17 10:28 BP 114/58 10/25/17 10:28 Pulse Ox 89 L 10/25/17 10:28 Intake & Output 10/24/17 10/25/17 10/25/17 18:59 06:59 18:59 Intake Total 400 530.52 100 Output Total 400 Balance 0 530.52 100 Intake: IV 100 240 100 Heparin Sod,Pork in 0.45% 240 NaCl 25,000 unit In 0.45 % NaCl 1 500ml.bag @ 12 UNITS/KG/HR 14.8 mls/hr IV .Q24H BETSY Rx#: [id number] Intake, IV Titration 300 290.52 Amount Heparin Sod,Pork in 0.45% 290.52 NaCl 25,000 unit In 0.45 % NaCl 1 500ml.bag @ 12 UNITS/KG/HR 16.2 mls/hr IV .Q24H BETSY Rx#: [id number] Sodium Chloride 0.9% 1, 300 000 ml @ 75 mls/hr IV . [id number] BETSY Rx#:[id number] Output: Urine 400 Other: Voiding Method Bedside Commode # Voids 3 2 - Constitutional General appearance: Present: cooperative, no acute distress - EENT Eyes: Present: poor dentition - Respiratory Details: Lungs sounds very diminished bilaterally. Respirations even, nonlabored. Currently on 6 L nasal cannula with oxygen saturation 89%. Only able to achieve 500 mL on her incentive spirometry. Weak cough with productive clear sputum. - Cardiovascular Details: S1, S2 present. Regular rate and rhythm, sinus rhythm on telemetry. Palpable peripheral pulses bilaterally. No edema present. No calf pain or tenderness noted. - Gastrointestinal Gastrointestinal Comment(s): Abdomen soft, nontender, nondistended. Active bowel sounds 4 quadrants. Tolerating diet. Small bowel movement yesterday. - Genitourinary Genitourinary Comment(s): Voiding clear, yellow urine. - Integumentary Integumentary Comment(s): Skin is warm and dry. - Neurologic Neurologic: Present: CNII-XII intact - Musculoskeletal Musculoskeletal: Present: gait normal, strength equal bilaterally - Psychiatric Psychiatric: Present: A&O x's 3, appropriate affect, intact judgment & insight - Allied health notes Allied health notes reviewed: nursing - Labs CBC & Chem 7: 10/25/17 03:34 10/25/17 03:34 Labs: Abnormal Lab Results - Last 24 Hours (Table) 10/24/17 10/24/17 10/25/17 Range/Units 06:18 19:39 03:34 RBC (3.80-5.40) m/uL RDW (11.5-15.5) % Plt Count (150-450) k/uL APTT 33.8 H (22.0-30.0) sec BUN 23 H (7-17) mg/dL Hemoglobin A1c 6.3 H (4.0-6.0) % Calcium 7.5 L (8.4-10.2) mg/dL 10/25/17 10/25/17 Range/Units 03:34 03:34 RBC 3.60 L (3.80-5.40) m/uL RDW 15.8 H (11.5-15.5) % Plt Count 136 L (150-450) k/uL APTT >200.0 H* (22.0-30.0) sec BUN (7-17) mg/dL Hemoglobin A1c (4.0-6.0) % Calcium (8.4-10.2) mg/dL Microbiology - Last 24 Hours (Table) 10/24/17 11:03 Urine Culture - Preliminary Urine,Voided 10/24/17 15:44 Nasal Screen MRSA/MSSA ([facility]) - Preliminary Nasal Swab - Imaging and Cardiology Chest x-ray: report reviewed, image reviewed ELLEN report reviewed. Assessment and Plan (1) Tobacco dependence in remission Current Visit: No Status: Resolved Code(s): F17.201 - NICOTINE DEPENDENCE, UNSPECIFIED, IN REMISSION SNOMED Code(s): 024156096 (2) History of breast cancer Current Visit: No Status: Resolved Code(s): Z85.3 - PERSONAL HISTORY OF MALIGNANT NEOPLASM OF BREAST SNOMED Code(s): 445344431 (3) History of right mastectomy Current Visit: No Status: Resolved Code(s): Z90.11 - ACQUIRED ABSENCE OF RIGHT BREAST AND NIPPLE SNOMED Code(s): 746500080 (4) History of chemotherapy Current Visit: No Status: Resolved Code(s): Z92.21 - PERSONAL HISTORY OF ANTINEOPLASTIC CHEMOTHERAPY SNOMED Code(s): 460838371 (5) Hypothyroid Current Visit: Yes Status: Chronic Code(s): E03.9 - HYPOTHYROIDISM, UNSPECIFIED SNOMED Code(s): 85340015 (6) Left main coronary artery disease Current Visit: Yes Status: Chronic Code(s): I25.10 - ATHSCL HEART DISEASE OF [place] CORONARY ARTERY W/O ANG PCTRS SNOMED Code(s): 587277285 (7) Family history of heart disease Current Visit: Yes Status: Chronic Code(s): Z82.49 - FAMILY HX OF ISCHEM HEART DIS AND OTH DIS OF THE CIRC SYS SNOMED Code(s): 694323914 (8) Constipation Current Visit: Yes Status: Acute Code(s): K59.00 - CONSTIPATION, UNSPECIFIED SNOMED Code(s): 05248480 (9) NSTEMI (non-ST elevated myocardial infarction) Current Visit: Yes Status: Acute Code(s): I21.4 - NON-ST ELEVATION (NSTEMI) MYOCARDIAL INFARCTION SNOMED Code(s): 817110418 (10) Medical non-compliance Current Visit: Yes Status: Acute Code(s): Z91.19 - PATIENT'S NONCOMPLIANCE W OTH MEDICAL TREATMENT AND REGIMEN SNOMED Code(s): 091318254 Plan: 1. Continue aspirin, statin, lisinopril, Lasix, Aldactone, heparin drip, beta gregg therapy. 2. Preoperative testing ongoing. 3. Will consult GI for constipation issues and recommendation. 4. Will obtain dental clearance as patient may likely need valve surgery as well. 5. Will obtain chest CT secondary to diffuse nodularity on chest x-ray as well as history of breast cancer with radiation. 6. Encourage incentive spirometry use. Encourage continued smoking cessation. 7. Medical management per primary, cardiology. 8. Patient is high risk for surgery. More recommendations will follow based on completion of preoperative testing and recommendations from other specialty lines. Time with Patient: Greater than 30
--- NOTE | 2017-10-25 14:24 | CT ---
EXAMINATION TYPE: CT chest w con DATE OF EXAM: 10/25/2017 COMPARISON: NONE HISTORY: cough with history of breast cancer CT DLP: 527 mGycm Automated exposure control for dose reduction was used. CONTRAST: CT scan of the chest is performed with IV Contrast, patient injected with 100 mL of Isovue 300. FINDINGS: LUNGS: Moderate bilateral pleural effusions are noted. There is evidence of interstitial edema and pu lmonary venous congestion. Moderate basilar atelectasis is identified. Underlying infiltrates of othe r etiology not excluded. Evaluation for pulmonary nodules is limited. Scattered groundglass infiltrat es seen. MEDIASTINUM: There are no greater than 1 cm hilar or mediastinal lymph nodes. No pericardial effusi on is seen. Thoracic aorta is of normal caliber. The heart is enlarged. UPPER ABDOMEN: Small amount of ascites noted. OTHER: No additional significant abnormality is seen. IMPRESSION: 1. Findings compatible with congestive failure which include a cardiomegaly, pulmonary venous congest ion, interstitial edema, moderate bilateral pleural effusions and scattered groundglass infiltrates. 2. No distinct nodules identified at this time although the aforementioned features of CHF limited ev aluation.
--- NOTE | 2017-10-25 14:46 | XR ---
EXAMINATION TYPE: XR panorex DATE OF EXAM: 10/25/2017 COMPARISON: NONE HISTORY: pre-op cardiac procedure. TECHNIQUE: Single Panorex view of the mandible is submitted. FINDINGS: Only to 2 teeth are noted to remain. Chronic appearing irregularity of the mandible. No ayush dence for fracture or bony destructive process.
--- NOTE | 2017-10-25 17:06 | P.GSCN ---
History of Present Illness Consult date: 10/25/17 Reason for Consult: Pt presented with only two teeth present in her mouth, #11,27. Radiographically, teeth and bone show no lesions to worry about. Upon intra oral examination, it revealed teeth are negative to percussion, pain free, and no pain to pressure on buccal vestibule. Teeth show no signs of active infection. However, both teeth are mobile. Tooth #27 (Lower right canine ) had a grade III mobility. Pt informed that the tooth might be dislodged while intubation, and even though care should be taken, it might still come out. My recommendation is just taking care while intubating the patient so the lower canine tooth does not get evulsed out of its socket, as it is the only one on the lower right and it is mobile. Otherwise, the patient is clear from any dental infections, and can proceed with the surgery. Thank you for your kind referral. Past Medical History Past Medical History: Cancer, COPD, Thyroid Disorder Additional Past Medical History / Comment(s): Breast cancer with a previous right mastectomy followed by radiation therapy, COPD, coronary artery disease with multivessel involvement, severe mitral regurgitation as evident on the echocardiogram and a cardiac catheterization, scoliosis of the spine, hypothyroidism, vitamin D deficiency. History of Any Multi-Drug Resistant Organisms: None Reported Past Surgical History: Breast Surgery Additional Past Surgical History / Comment(s): Right mastectomy, cardiac catheterization Past Psychological History: No Psychological Hx Reported Smoking Status: Heavy tobacco smoker (37-pack per year smoking history and the patient is trying to quit smoking apparently she quit smoking approximately a month ago. She smokes 1 pack every other day) Past Alcohol Use History: Daily Additional Past Alcohol Use History / Comment(s): Daily glass of wine Past Drug Use History: None Reported - Past Family History Father Family Medical History: Coronary Artery Disease (CAD), CVA/TIA, Hypertension, Myocardial Infarction ([place]) Mother Family Medical History: Coronary Artery Disease (CAD), CVA/TIA, Diabetes Mellitus, Hypertension, Myocardial Infarction ([place]) Additional Family Medical History / Comment(s): pace maker Medications and Allergies Home Medications Medication Instructions Recorded Confirmed Type Ascorbic Acid [Vitamin C] 1,000 mg PO DAILY 10/23/17 10/23/17 History Cholecalciferol [Vitamin D3] 1,000 unit PO DAILY 10/23/17 10/23/17 History Multivitamins, Thera [Multivitamin 1 tab PO DAILY 10/23/17 10/23/17 History (formulary)] Vitamin B Complex 1 cap PO DAILY 10/23/17 10/23/17 History Allergies Allergy/AdvReac Type Severity Reaction Status Date / Time morphine Allergy Dyspnea Verified 10/23/17 15:53 Surgical - Exam Vital Signs Temp Pulse Resp BP Pulse Ox 98.9 F 117 H 24 175/91 92 L 10/23/17 13:59 10/23/17 13:59 10/23/17 13:59 10/23/17 13:59 10/23/17 13:59 Results - Labs 10/25/17 03:34 10/25/17 03:34 Abnormal Lab Results - Last 24 Hours (Table) 10/24/17 10/24/17 10/25/17 Range/Units 06:18 19:39 03:34 RBC (3.80-5.40) m/uL RDW (11.5-15.5) % Plt Count (150-450) k/uL APTT 33.8 H (22.0-30.0) sec BUN 23 H (7-17) mg/dL Hemoglobin A1c 6.3 H (4.0-6.0) % Calcium 7.5 L (8.4-10.2) mg/dL 10/25/17 10/25/17 Range/Units 03:34 03:34 RBC 3.60 L (3.80-5.40) m/uL RDW 15.8 H (11.5-15.5) % Plt Count 136 L (150-450) k/uL APTT >200.0 H* (22.0-30.0) sec BUN (7-17) mg/dL Hemoglobin A1c (4.0-6.0) % Calcium (8.4-10.2) mg/dL Microbiology - Last 24 Hours (Table) 10/24/17 11:03 Urine Culture - Preliminary Urine,Voided 10/24/17 15:44 Nasal Screen MRSA/MSSA ([facility]) - Preliminary Nasal Swab Diabetes panel 10/24/17 10/25/17 Range/Units 06:18 03:34 Sodium 139 (137-145) mmol/L Potassium 3.8 (3.5-5.1) mmol/L Chloride 104 (98-107) mmol/L Carbon Dioxide 26 (22-30) mmol/L BUN 23 H (7-17) mg/dL Creatinine 0.75 (0.52-1.04) mg/dL Glucose 98 (74-99) mg/dL Hemoglobin A1c 6.3 H (4.0-6.0) % Calcium 7.5 L (8.4-10.2) mg/dL Calcium panel 10/25/17 Range/Units 03:34 Calcium 7.5 L (8.4-10.2) mg/dL Pituitary panel 10/25/17 Range/Units 03:34 Sodium 139 (137-145) mmol/L Potassium 3.8 (3.5-5.1) mmol/L Chloride 104 (98-107) mmol/L Carbon Dioxide 26 (22-30) mmol/L BUN 23 H (7-17) mg/dL Creatinine 0.75 (0.52-1.04) mg/dL Glucose 98 (74-99) mg/dL Calcium 7.5 L (8.4-10.2) mg/dL Adrenal panel 10/25/17 Range/Units 03:34 Sodium 139 (137-145) mmol/L Potassium 3.8 (3.5-5.1) mmol/L Chloride 104 (98-107) mmol/L Carbon Dioxide 26 (22-30) mmol/L BUN 23 H (7-17) mg/dL Creatinine 0.75 (0.52-1.04) mg/dL Glucose 98 (74-99) mg/dL Calcium 7.5 L (8.4-10.2) mg/dL
[2017-10-25] MEDS: HEPARIN SODIUM,PORCINE 5,000 UNIT/ML 1 ML VIAL IV PRN (19:00)
[2017-10-26 06:34] LABS: Basophils # (A) 0.1 k/uL (0-0.2); Basophils % (A) 1 %; Eosinophils # (A) 0.4 k/uL (0-0.7); Eosinophils % (A) 4 %; HCT 37.2 % (34.0-46.0); HGB 11.8 gm/dL (11.4-16.0); Hypochromasia Moderate; Lymphocytes # (A) 2.2 k/uL (1.0-4.8); Lymphocytes % (A) 21 %; MCH 31.5 pg (25.0-35.0); MCHC 31.6 g/dL (31.0-37.0); MCV 99.8 fL (80.0-100.0); Macrocytosis Slight; Mean Platelet Volume 8.7; Monocytes # (A) 0.7 k/uL (0-1.0); Monocytes % (A) 7 %; Neutrophils # (A) 6.9 k/uL (1.3-7.7); Neutrophils % (A) 66 %; Platelet Count 133 k/uL (150-450); RBC 3.73 m/uL (3.80-5.40); RDW 15.9 % (11.5-15.5); WBC 10.5 k/uL (3.8-10.6)
[2017-10-26 06:42] LABS: Calcium 8.2 mg/dL (8.4-10.2); Potassium 4.1 mmol/L (3.5-5.1)
[2017-10-26] MEDS: CARVEDILOL 6.25 MG TAB PO SCH ×2 (09:32→17:59)
[2017-10-26] MEDS: ASPIRIN 81 MG PO SCH (09:33)
[2017-10-26] MEDS: ATORVASTATIN 40 MG TAB PO SCH (09:33)
[2017-10-26] MEDS: DOCUSATE 100 MG CAP PO SCH (09:34)
[2017-10-26] MEDS: SPIRONOLACTONE 25 MG TAB PO SCH (09:35)
[2017-10-26] MEDS: FUROSEMIDE 20 MG TAB PO SCH ×2 (09:35→21:16)
--- NOTE | 2017-10-26 12:12 | PN ---
PROGRESS NOTE Mrs. Sierra is a 72-year-old female who presented with evidence of [id number]- elevation myocardial infarction, symptoms consistent with congestive heart, who was found to have severe cardiomyopathy with significant mitral regurgitation and significant coronary artery disease. She has a history of severe tobacco use and noncompliance. She was seen by Dr. Perez, who felt that she is very high risk for any surgical intervention. She is feeling well this morning. She is mildly congested. She denies any chest pain. No dizziness. No palpitation. She denies any nausea. She continues to be at this time on: 1. Aspirin 81 mg daily. 2. Lipitor 40 mg daily. 3. Coreg 6.25 mg twice a day. 4. Lasix 20 mg twice a day. 5. IV heparin. 6. Lisinopril 5 mg twice a day. 7. Spironolactone 25 mg daily. PHYSICAL EXAMINATION: Blood pressure 112/50 with a heart rate in the 70s. LUNGS: A few crackles at the bases. HEART: Regular rate and rhythm. S1, S2. No S3, with a holosystolic murmur in the apex radiating to the axilla. ABDOMEN: Soft, nontender. EXTREMITIES: No edema. LAB DATA: BUN and creatinine of 22 and 0.8, potassium 4.1, hemoglobin of 11.8. IMPRESSION: 1. Significant obstructive coronary artery disease. 2. Severe cardiomyopathy and severe mitral regurgitation. 3. Severe chronic obstructive lung disease. 4. Chronic tobacco use. 5. Chronic constipation. RECOMMENDATION: At this time, I will stop the IV heparin, continue the rest of her medical regimen, increase her level of activity. If she is felt by the surgical team to be high risk for surgical intervention and not a candidate for any intervention, we will optimize her medical therapy and probably she will be discharged home in the next 48 hours. The prognosis is quite guarded. I have discussed those findings and recommendations with the family in detail. MMODL / IJN: [id number] /
[2017-10-26] MEDS: LISINOPRIL 5 MG TAB PO SCH ×2 (12:24→21:16)
--- NOTE | 2017-10-26 12:25 | P.PN ---
Subjective Principal diagnosis: Obstructive coronary artery disease Ischemic cardiomyopathy Patient is a 72-year-old female who does not follow with a physician, long-time smoker however quit a couple weeks ago with onset of an upper respiratory type infection. Patient presented to the ED with a 2+ week history of constipation, states the last full bowel movement was about 2 weeks ago and since then has only been having intermittent very small hard bowel movements. While in the ED , patient also complained about right-sided chest wall pain located at the bottom of her rib cage which she has been having intermittently and which she thinks is related to her constipation. Patient also stated she had some what she thought was indigestion the night prior to presentation, with some epigastric discomfort which she attributed to eating chili before bed. While in the ED, found to have a troponin of 0.113 and started on heparin, admitted to telemetry for presumed NSTEMI. Echocardiogram done showing an ejection fraction of 20-25%, LA severely dilated , RA appeared enlarged, moderate to severe mitral regurgitation. Subsequently patient underwent cardiac catheterization on 10/24/2017 showing 60-70% stenosis of the left main, 80% stenosis of left anterior descending, 20-30% of obtuse marginal; severe global hypokinesis with an EF of 20% and 4+ mitral regurgitation, also noted to have severe peripheral arterial disease. Cardiology recommended cardiothoracic surgery consultation for evaluation for coronary artery bypass grafting. Pulmonology consulted due to patient's smoking history and obvious poor lung capacity based on physical exam, bedside testing showed an FEV1 of 33%. Pulmonology stating patient is a poor surgical candidate, however recommending gastroenterology evaluation due to her GI complaints. Patient seen and examined resting comfortably in her bed, family bedside. Patient denies any ongoing chest pain or pressure. Still complains about this constipation feeling, minimal appetite. Objective - Vital Signs Vital signs: Vital Signs Temp 96.9 F L 10/26/17 11:49 Pulse 77 10/26/17 11:49 Resp 16 10/26/17 11:49 BP 110/59 10/26/17 11:49 Pulse Ox 100 10/26/17 11:49 Intake & Output 10/25/17 10/26/17 10/26/17 18:59 06:59 18:59 Intake Total 445 209.48 481.6 Output Total 600 1000 Balance -155 -790.52 481.6 Weight 68 kg 68 kg Intake: IV 295 241.6 .9 80 80 Heparin Sod,Pork in 0.45% 115 161.6 NaCl 25,000 unit In 0.45 % NaCl 1 500ml.bag @ 12 UNITS/KG/HR 16.2 mls/hr IV .Q24H BETSY Rx#: [id number] Intake, IV Titration 209.48 Amount Heparin Sod,Pork in 0.45% 209.48 NaCl 25,000 unit In 0.45 % NaCl 1 500ml.bag @ 12 UNITS/KG/HR 16.2 mls/hr IV .Q24H BETSY Rx#: [id number] Oral 150 240 Output: Urine 600 1000 Other: Voiding Method Bedside Commode Bedside Commode # Voids 2 1 # Bowel Movements 0 - Exam General: A/O x 3, NAD, Lying in bed comfortably HEENT: EOMI, MMM, atraumatic normocephalic. Poor dentition. Missing most teeth. Neck: Supple. No JVD, trachea midline CVS: Regular rate and rhythm. Distant heart sounds. + S1/S2, slight systolic ejection murmur appreciated Respiratory: Bilateral air entry noted. Clear to auscultation, no wheeze, no rhonchi Abdomen: Soft, nontender, nondistended. Bowel sounds audible Extremities: No lower extremity edema. No clubbing or cyanosis Skin: No rash or skin change noted Psych: Without hallucinations, abnormal affect, or abnormal behaviors during the examination - Labs CBC & Chem 7: 10/26/17 05:53 10/26/17 05:53 Labs: Abnormal Lab Results - Last 24 Hours (Table) 10/25/17 10/26/17 10/26/17 Range/Units 17:01 01:13 05:53 RBC 3.73 L (3.80-5.40) m/uL RDW 15.9 H (11.5-15.5) % Plt Count 133 L (150-450) k/uL APTT 34.8 H 69.6 H (22.0-30.0) sec BUN (7-17) mg/dL Glucose (74-99) mg/dL Calcium (8.4-10.2) mg/dL 10/26/17 10/26/17 Range/Units 05:53 06:03 RBC (3.80-5.40) m/uL RDW (11.5-15.5) % Plt Count (150-450) k/uL APTT 57.7 H (22.0-30.0) sec BUN 22 H (7-17) mg/dL Glucose 111 H (74-99) mg/dL Calcium 8.2 L (8.4-10.2) mg/dL Microbiology - Last 24 Hours (Table) 10/24/17 15:44 Nasal Screen MRSA/MSSA ([facility]) - Final Nasal Swab 10/24/17 11:03 Urine Culture - Preliminary Urine,Voided Gram Neg Bacilli Assessment and Plan (1) NSTEMI (non-ST elevated myocardial infarction) Current Visit: Yes Status: Acute Code(s): I21.4 - NON-ST ELEVATION (NSTEMI) MYOCARDIAL INFARCTION SNOMED Code(s): 789380640 (2) Constipation Current Visit: Yes Status: Acute Code(s): K59.00 - CONSTIPATION, UNSPECIFIED SNOMED Code(s): 25700243 (3) CAD (coronary artery disease), [place] coronary artery Current Visit: Yes Status: Acute Code(s): I25.10 - ATHSCL HEART DISEASE OF [place] CORONARY ARTERY W/O ANG PCTRS SNOMED Code(s): 5162433295269 (4) Ischemic cardiomyopathy Current Visit: Yes Status: Acute Code(s): I25.5 - ISCHEMIC CARDIOMYOPATHY SNOMED Code(s): 636644928 (5) Severe mitral regurgitation Current Visit: Yes Status: Acute Code(s): I34.0 - NONRHEUMATIC MITRAL (VALVE ) INSUFFICIENCY SNOMED Code(s): 33463069 (6) Acute systolic heart failure Current Visit: Yes Status: Acute Code(s): I50.21 - ACUTE SYSTOLIC ( CONGESTIVE) HEART FAILURE SNOMED Code(s): 419231941 Plan: 72-year-old female who does not follow with a physician, long-time smoker who presented with principal complaint of constipation though it did admit to some chest discomfort, found to have elevated troponin. Further workup included an echocardiogram done showing an ejection fraction of 20-25%, LA severely dilated , RA appeared enlarged, moderate to severe mitral regurgitation. Subsequently patient underwent cardiac catheterization on 10/24/2017 showing 60-70% stenosis of the left main, 80% stenosis of left anterior descending, 20-30% of obtuse marginal; severe global hypokinesis with an EF of 20% and 4+ mitral regurgitation, also noted to have severe peripheral arterial disease. Cardiology recommended cardiothoracic surgery consultation for evaluation for coronary artery bypass grafting. CTS on consult. PFTs pending, bedside testing shows FEV1 33%. Pulmonary on consult, state patient is a poor surgical candidate due to history of nonadherence, long sitting smoking history, poor lung compliance. Mild requesting gastroenterology evaluation due to her GI complaints. Patient has completed over 48 hours of heparin, discontinue today. Continue on beta gregg , AMANDA inhibitor, aspirin, statin, spironolactone, Lasix. ELLEN done better characterization of the patient's valvular disease.
--- NOTE | 2017-10-26 12:38 | P.PN ---
Subjective Progress Note Date: 10/26/17 Principal diagnosis: Severe coronary artery disease with left main disease. Impaired LV function. Mitral regurgitation. History of right breast cancer with mastectomy, chemo, and radiation in 1997. History of hypothyroidism, currently not on any medications as she stopped them on her own. Recent cessation of tobacco use with previous [id number]-[id number] history. Medical noncompliance. Significant family history of coronary artery disease. Right carotid stenosis, 50-69%. Severe COPD with an FEV1 33% of predicted. Hyperlipidemia with an LDL of 130. Patient is currently sitting up in bed in no acute distress. Denies any chest pain. Does still complain of shortness of breath with exertion and congestion. Family at bedside. All questions answered. Objective - Vital Signs Vital signs: Vital Signs Temp 96.9 F L 10/26/17 11:49 Pulse 77 10/26/17 11:49 Resp 16 10/26/17 11:49 BP 110/59 10/26/17 11:49 Pulse Ox 100 10/26/17 11:49 Intake & Output 10/25/17 10/26/17 10/26/17 18:59 06:59 18:59 Intake Total 445 209.48 481.6 Output Total 600 1000 Balance -155 -790.52 481.6 Weight 68 kg 68 kg Intake: IV 295 241.6 .9 80 80 Heparin Sod,Pork in 0.45% 115 161.6 NaCl 25,000 unit In 0.45 % NaCl 1 500ml.bag @ 12 UNITS/KG/HR 16.2 mls/hr IV .Q24H [facility] Rx#: [id number] Intake, IV Titration 209.48 Amount Heparin Sod,Pork in 0.45% 209.48 NaCl 25,000 unit In 0.45 % NaCl 1 500ml.bag @ 12 UNITS/KG/HR 16.2 mls/hr IV .Q24H [facility] Rx#: [id number] Oral 150 240 Output: Urine 600 1000 Other: Voiding Method Bedside Commode Bedside Commode # Voids 2 1 # Bowel Movements 0 - Constitutional General appearance: Present: cooperative, no acute distress - Respiratory Details: Lungs sounds very diminished bilaterally. Respirations even, nonlabored. Currently on 4 L nasal cannula with oxygen saturation 93%. Only able to achieve 500 mL on her incentive spirometry. Weak cough with productive clear sputum. - Cardiovascular Details: S1, S2 present. Regular rate and rhythm, sinus rhythm on telemetry. Palpable peripheral pulses bilaterally. No edema present. No calf pain or tenderness noted. - Gastrointestinal Gastrointestinal Comment(s): Abdomen soft, nontender, nondistended. Active bowel sounds 4 quadrants. Tolerating diet. Small bowel movement . - Genitourinary Genitourinary Comment(s): Voiding clear, yellow urine. - Integumentary Integumentary Comment(s): Skin is warm and dry. - Neurologic Neurologic: Present: CNII-XII intact - Musculoskeletal Musculoskeletal: Present: gait normal, strength equal bilaterally - Psychiatric Psychiatric: Present: A&O x's 3, appropriate affect, intact judgment & insight - Allied health notes Allied health notes reviewed: nursing - Labs CBC & Chem 7: 10/26/17 05:53 10/26/17 05:53 Labs: Abnormal Lab Results - Last 24 Hours (Table) 10/25/17 10/26/17 10/26/17 Range/Units 17:01 01:13 05:53 RBC 3.73 L (3.80-5.40) m/uL RDW 15.9 H (11.5-15.5) % Plt Count 133 L (150-450) k/uL APTT 34.8 H 69.6 H (22.0-30.0) sec BUN (7-17) mg/dL Glucose (74-99) mg/dL Calcium (8.4-10.2) mg/dL 10/26/17 10/26/17 Range/Units 05:53 06:03 RBC (3.80-5.40) m/uL RDW (11.5-15.5) % Plt Count (150-450) k/uL APTT 57.7 H (22.0-30.0) sec BUN 22 H (7-17) mg/dL Glucose 111 H (74-99) mg/dL Calcium 8.2 L (8.4-10.2) mg/dL Microbiology - Last 24 Hours (Table) 10/24/17 15:44 Nasal Screen MRSA/MSSA ([facility]) - Final Nasal Swab 10/24/17 11:03 Urine Culture - Preliminary Urine,Voided Gram Neg Bacilli Assessment and Plan (1) Tobacco dependence in remission Current Visit: No Status: Resolved Code(s): F17.201 - NICOTINE DEPENDENCE, UNSPECIFIED, IN REMISSION SNOMED Code(s): 277730889 (2) History of breast cancer Current Visit: No Status: Resolved Code(s): Z85.3 - PERSONAL HISTORY OF MALIGNANT NEOPLASM OF BREAST SNOMED Code(s): 393090947 (3) History of right mastectomy Current Visit: No Status: Resolved Code(s): Z90.11 - ACQUIRED ABSENCE OF RIGHT BREAST AND NIPPLE SNOMED Code(s): 731541078 (4) History of chemotherapy Current Visit: No Status: Resolved Code(s): Z92.21 - PERSONAL HISTORY OF ANTINEOPLASTIC CHEMOTHERAPY SNOMED Code(s): 455702781 (5) Hypothyroid Current Visit: Yes Status: Chronic Code(s): E03.9 - HYPOTHYROIDISM, UNSPECIFIED SNOMED Code(s): 25956139 (6) Left main coronary artery disease Current Visit: Yes Status: Chronic Code(s): I25.10 - ATHSCL HEART DISEASE OF [place] CORONARY ARTERY W/O ANG PCTRS SNOMED Code(s): 719300727 (7) Family history of heart disease Current Visit: Yes Status: Chronic Code(s): Z82.49 - FAMILY HX OF ISCHEM HEART DIS AND OTH DIS OF THE CIRC SYS SNOMED Code(s): 549548113 (8) Constipation Current Visit: Yes Status: Acute Code(s): K59.00 - CONSTIPATION, UNSPECIFIED SNOMED Code(s): 12034895 (9) NSTEMI (non-ST elevated myocardial infarction) Current Visit: Yes Status: Acute Code(s): I21.4 - NON-ST ELEVATION (NSTEMI) MYOCARDIAL INFARCTION SNOMED Code(s): 070827869 (10) Medical non-compliance Current Visit: Yes Status: Acute Code(s): Z91.19 - PATIENT'S NONCOMPLIANCE W OTH MEDICAL TREATMENT AND REGIMEN SNOMED Code(s): 034776095 Plan: 1. Continue aspirin, statin, lisinopril, Lasix, Aldactone, heparin drip, beta gregg therapy. 2. Encourage increased activity. 3. Will consult GI for constipation issues. Await recommendations. 4. Dental clearance obtained. 5. Chest CT completed. Findings consistent with congestive heart failure. No distinct nodules identified. 6. Encourage incentive spirometry use. Encourage continued smoking cessation. 7. Medical management per primary, cardiology. 8. Patient is high risk for surgery. More recommendations will follow based on recommendations from other specialty lines. Time with Patient: Greater than 30
[2017-10-26] MEDS: MUPIROCIN 2% OINT 22 GM TUBE NASAL SCH ×2 (12:55→21:16)
[2017-10-26] MEDS ORDERED: RX INFO: IV CONTRAST WAS GIVEN 1 EACH MISC MISCELLANE PRN (15:06)
--- NOTE | 2017-10-26 15:06 | P.PN ---
Subjective Progress Note Date: 10/26/17 A pleasant 72-year-old female patient, who was diagnosed having extensive coronary artery disease, and I was asked to evaluate this patient's pulmonary status and comment on her status and readiness for any cardiac surgery I met this patient and the presence of her sister and the rest of family members. She was very nervous and at times she'll noted that she didn't want to receive any further treatment and she wanted to leave the hospital. Nevertheless, it was obvious to me that all the information the patient was receiving was overwhelming to her and she wasn't able to make sound judgments. In summary, the patient came into the hospital because of increased constipation. She hasn't had a bowel movement for the past 1-2 weeks and apparently she is been passing only small BMs. She has not had any good decent sized bowel movements. She is passing gas. Abdomen slightly distended also. No melanotic stool. No bright red blood per rectum and this is obviously a change in her bowel habits. Over the past 2 days she was also having some on and off chest pain and shortness of breath and she came into the hospital where she was found to have positive troponins and subsequent evaluation by cardiology to a cardiac catheterization the patient was found to have a tight left main approximately 6-70%, 30% RCA lesion, 20% circumflex lesion, 80% proximal LAD lesion, and the LV angiogram showed impaired LV function with an ejection fraction of 20% and the patient has +3 mitral regurgitation. She also has extensively calcified vessels and peripheral vascular disease. The patient is currently free of any chest pain. She does not have any swelling in lower extremities. She is a chronic smoker in she has more than 19-[id number]-wxgm smoking history. The patient had a chest x-ray that showed increased pulmonary vascular marking and there is some questionable nodularity in the right upper lung area. She has a chronic congested cough. Overall performance and functional status has been limited as the patient has not been active and she hasn't seen a physician for more than 10 years. No hemoptysis. No pleurisy. No unusual weight loss. No anemia or blood work. Troponins were positive as mentioned. She has history of breast cancer. The patient has undergone mastectomy followed by radiation therapy. The patient has also component of hypothyroidism with a TSH was found to be at 6.2 with a normal free T4 and the LDL level is at 130. On today's evaluation of 10/25/2017, the patient is still on oxygen on 4l to oxygen nasal cannula. She claims that she has not produced any bowel movements yet. Abdomen is less distended compared to yesterday. Her bedside spirometry was done and the patient has an FEV1 of 33% of predicted consistent with severe COPD. A ELLEN was done and the patient was again confirmed to have an ejection fraction of 20-25%. The patient also was found to have moderate degree of mitral regurgitation without any intracardiac shunt. There is moderate atherosclerotic changes of the ascending aorta. The patient also had carotid Dopplers that showed 50-70% stenosis of the right internal carotid artery. She remains quite not interested in undergoing any surgical evaluation/treatment for her cardiac disease. She thinks she does not have any major problem and she continues to talk about her bowel and the inability to have bowel movements. On the patient's condition essentially the same. No reported chest pain. The patient remains on a combination of Coreg 6.25 mg by mouth twice a day, lisinopril 5 mg by mouth twice a day and a combination of Lasix and Aldactone. The Lasix at a dose of 20 mg by mouth twice a day and Aldactone 25 mg by mouth daily. Aspirated, the patient is used to be a very poor surgical candidate for cardiac surgery. The patient is still having issues with constipation and she said she had diminished appetite. The patient has not seen by gastroenterology.. The patient had a evaluation by Dr. Menon and the patient was found to have no surgical risk from infection from any potential dental complications. Awaiting consultation by gastroenterology. Objective - Vital Signs Vital signs: Vital Signs Temp 96.9 F L 10/26/17 11:49 Pulse 77 10/26/17 11:49 Resp 16 10/26/17 11:49 BP 110/59 10/26/17 11:49 Pulse Ox 100 10/26/17 11:49 Intake & Output 10/25/17 10/26/17 10/26/17 18:59 06:59 18:59 Intake Total 445 209.48 481.6 Output Total 600 1000 200 Balance -155 -790.52 281.6 Weight 68 kg 68 kg Intake: IV 295 241.6 .9 80 80 Heparin Sod,Pork in 0.45% 115 161.6 NaCl 25,000 unit In 0.45 % NaCl 1 500ml.bag @ 12 UNITS/KG/HR 16.2 mls/hr IV .Q24H [facility] Rx#: [id number] Intake, IV Titration 209.48 Amount Heparin Sod,Pork in 0.45% 209.48 NaCl 25,000 unit In 0.45 % NaCl 1 500ml.bag @ 12 UNITS/KG/HR 16.2 mls/hr IV .Q24H [facility] Rx#: [id number] Oral 150 240 Output: Urine 600 1000 200 Other: Voiding Method Bedside Commode Bedside Commode # Voids 2 1 # Bowel Movements 0 - Exam Gen. appearance the patient is a bit nervous and she does not seem to be in acute respiratory distress.Head exam was generally normal. There was no scleral icterus or corneal arcus. Mucous membranes were moist.Neck was supple and without jugular venous distension, thyromegaly, or carotid bruits. Carotids were easily palpable bilaterally. There was no adenopathy. Poor dentition and the patient has no thrush. Lungs sounds are diminished bilaterally otherwise there are some scattered rhonchi. Nares of ecchymosis of breathing. Heart sounds are regular, positive sinus stool and there is no significant murmurs appreciated. Overall heart sounds are quite distant. No right ventricular heave or any thrill.Abdominal exam revealed normal bowel sounds. The abdomen was soft, non-tender, and without masses, organomegaly, or appreciable enlargement of the abdominal aorta.Examination of the extremities revealed easily palpable radial, femoral and pedal pulses. There was no cyanosis, clubbing or edema.Examination of the skin revealed no evidence of significant rashes, suspicious appearing nevi or other concerning lesions. The patient has a right mastectomy. Neurologically she is awake and alert and is no focal neurological deficit. - Labs CBC & Chem 7: 10/26/17 05:53 10/26/17 05:53 Labs: Abnormal Lab Results - Last 24 Hours (Table) 10/25/17 10/26/17 10/26/17 Range/Units 17:01 01:13 05:53 RBC 3.73 L (3.80-5.40) m/uL RDW 15.9 H (11.5-15.5) % Plt Count 133 L (150-450) k/uL APTT 34.8 H 69.6 H (22.0-30.0) sec BUN (7-17) mg/dL Glucose (74-99) mg/dL Calcium (8.4-10.2) mg/dL 10/26/17 10/26/17 Range/Units 05:53 06:03 RBC (3.80-5.40) m/uL RDW (11.5-15.5) % Plt Count (150-450) k/uL APTT 57.7 H (22.0-30.0) sec BUN 22 H (7-17) mg/dL Glucose 111 H (74-99) mg/dL Calcium 8.2 L (8.4-10.2) mg/dL Microbiology - Last 24 Hours (Table) 10/24/17 15:44 Nasal Screen MRSA/MSSA ([facility]) - Final Nasal Swab 10/24/17 11:03 Urine Culture - Preliminary Urine,Voided Gram Neg Bacilli Assessment and Plan Plan: Assessment 1 preoperative pulmonary evaluation for possible cardiac surgery. The patient comes in with an acute non-ST segment elevation myocardial infarction and furthermore the cardiac catheterization shows extensive coronary artery disease and severe mitral regurgitation. She has impaired LV function with ejection fraction of 20%, in addition to moderate to severe MR based on today's ELLEN. 2 multivessel coronary artery disease 3 acute non-ST segment patient myocardial infarction 4 new onset constipation and obviously this is a recent change in bowel habits which raises concerns to hours GI malignancies 5 poor medical follow-up and compliance over the years as the patient has not seen any physician for more than 10 years and she does not seem to be a good candidate for subsequent follow-ups as the patient clearly states that she is very nervous from physicians and medical care in general and she may not undergo the appropriate follow-ups needed for medical care 6 smoker 7 COPD, based on FEV1 is nor that of 33% on bedside spirometry. 8 increased interstitial markings bilaterally with some nodularity that needs to be further investigated 9 elevated TSH probably an early hypothyroidism 10 breast cancer and a previous right mastectomy and previous radiation therapy. 11 right internal carotid artery disease estimated to be between 50-69% Plan Awaiting a GI evaluation. I think it's reasonable to obtain a CAT scan of the abdomen and pelvis based on ongoing constipation. As stated, poor surgical candidate for cardiac surgery. Awaiting a GI evaluation regarding her chronic constipation. FEV1 is poor at 33% of predicted. This needs to be further followed up on outpatient basis knowing that this may be a over estimation of her lung disease knowing that the patient wasn't failure and she had bilateral pleural effusions at time of admission. We'll continue to follow.
[2017-10-26] MEDS: IOPAMIDOL-300 CONTRAST 30 ML VIAL (ORAL USE) PO PRN ×2 (15:50→17:04)
--- NOTE | 2017-10-26 22:16 | CT ---
EXAMINATION TYPE: CT ChestAbdPelvis w con DATE OF EXAM: 10/26/2017 COMPARISON: CT chest from yesterday. HISTORY: Shortness of breath, constipation CT DLP: 721.4 mGycm. Automated Exposure Control for Dose Reduction was Utilized. CONTRAST: CT scan of the thorax, abdomen and pelvis is performed with oral and with IV Contrast, patient inject ed with 100 mL of Isovue 300. FINDINGS: LUNGS: There is chronic emphysematous change with subpleural fibrosis in the periphery of both lungs most prominent in the right lung anterolateral aspect. There are small to moderate size bilateral ple ural effusions improved from prior. There is associated bibasilar compressive atelectasis with possib le left basilar consolidation both redemonstrated. Some mild groundglass opacity remains present. No pneumothorax is seen bilaterally. MEDIASTINUM: There are persistent enlarged bilateral hilar and mediastinal lymph nodes most prominent subcarinal level. There is persistent cardiomegaly. No pericardial effusion is seen. OTHER: Right-sided mastectomy changes are redemonstrated. LIVER/GB: Small amount of perihepatic ascites anteriorly and right lateral aspects is redemonstrated. Gallbladder wall thickening is suspected. Consider ultrasound follow-up. PANCREAS: No significant abnormality is seen. SPLEEN: No significant abnormality is seen. ADRENALS: Irregular slight nodular thickening through both adrenal glands is nonspecific. KIDNEYS: Central calcifications in both kidneys could reflect small calculi versus vascular calcifica tions, latter is favored. BOWEL: The oral contrast reaches level of sigmoid colon. There is no suspicious small or large bowel dilatation. GENITAL ORGANS: Anteverted uterus is seen. There is small to moderate amount of pelvic ascites in the cul-de-sac and small 2 tiny amount of anterior pelvic ascites. LYMPH NODES: No greater than 1cm abdominal or pelvic lymph nodes are appreciated. OSSEOUS STRUCTURES: There is moderate multilevel spurring in the spine. There is disc space narrowing most prominent L1-L2 and L2-L3 levels. There is facet arthropathy lower lumbar levels. There is mode rate to severe joint space loss and mild spurring of both hips. OTHER: There is fairly severe noncalcified plaque in the abdominal aorta with more prominent calcifie d plaque seen in branch vessels. IMPRESSION: 1. Underlying emphysematous change is redemonstrated. There is persistent cardiomegaly with mild alyssa tral alveolar edema and improving small 2 moderate size bilateral pleural effusions, findings are con sistent with improving CHF exacerbation. 2. Small amount of abdominal and pelvic ascites of uncertain etiology. 3. No bowel obstruction is present. No significant colonic fecal stasis is noted. 4. Gallbladder wall thickening and/or pericholecystic fluid, if there is clinical concern for acute c holecystitis further investigation with ultrasound would be advised.
[2017-10-27 06:24] LABS: Calcium 8.4 mg/dL (8.4-10.2)
[2017-10-27 06:30] LABS: Basophils % (A) 0 %; Eosinophils # (A) 0.3 k/uL (0-0.7); Eosinophils % (A) 3 %; HCT 37.7 % (34.0-46.0); HGB 11.8 gm/dL (11.4-16.0); Hypochromasia Moderate; Lymphocytes % (A) 22 %; MCH 31.3 pg (25.0-35.0); MCHC 31.3 g/dL (31.0-37.0); MCV 99.7 fL (80.0-100.0); Macrocytosis Slight; Mean Platelet Volume 8.9; Monocytes # (A) 0.5 k/uL (0-1.0); Monocytes % (A) 6 %; Neutrophils # (A) 6.1 k/uL (1.3-7.7); Neutrophils % (A) 66 %; Platelet Count 141 k/uL (150-450); RBC 3.78 m/uL (3.80-5.40); WBC 9.3 k/uL (3.8-10.6)
[2017-10-27] MEDS: CARVEDILOL 6.25 MG TAB PO SCH ×2 (07:46→17:18)
[2017-10-27] MEDS: SPIRONOLACTONE 25 MG TAB PO SCH (08:32)
[2017-10-27] MEDS: LISINOPRIL 5 MG TAB PO SCH ×2 (08:32→20:28)
[2017-10-27] MEDS: ASPIRIN 81 MG PO SCH (08:32)
[2017-10-27] MEDS: MUPIROCIN 2% OINT 22 GM TUBE NASAL SCH ×2 (08:32→20:29)
[2017-10-27] MEDS: DOCUSATE 100 MG CAP PO SCH (08:32)
[2017-10-27] MEDS: ATORVASTATIN 40 MG TAB PO SCH (08:32)
[2017-10-27] MEDS: FUROSEMIDE 20 MG TAB PO SCH ×2 (08:32→20:29)
--- NOTE | 2017-10-27 08:58 | P.PN ---
Subjective Progress Note Date: 10/27/17 Principal diagnosis: Severe coronary artery disease with left main disease. Impaired LV function. Mitral regurgitation. History of right breast cancer with mastectomy, chemo, and radiation in 1997. History of hypothyroidism, currently not on any medications as she stopped them on her own. Recent cessation of tobacco use with previous [id number]-[id number] history. Medical noncompliance. Significant family history of coronary artery disease. Right carotid stenosis, 50-69%. Severe COPD with an FEV1 33% of predicted. Hyperlipidemia with an LDL of 130. Patient is currently walking in her room in no acute distress. Denies any chest pain. Does still complain of shortness of breath with exertion and congestion. Constipation resolved, patient with multiple loose stools. Objective - Vital Signs Vital signs: Vital Signs Temp 96.7 F L 10/27/17 08:25 Pulse 65 10/27/17 08:25 Resp 20 10/27/17 08:25 BP 126/59 10/27/17 08:25 Pulse Ox 97 10/27/17 08:25 Intake & Output 10/26/17 10/27/17 10/27/17 18:59 06:59 18:59 Intake Total 721.6 120 Output Total 750 1750 Balance -28.4 -1750 120 Weight 68 kg Intake: IV 241.6 .9 80 Heparin Sod,Pork in 0.45% 161.6 NaCl 25,000 unit In 0.45 % NaCl 1 500ml.bag @ 12 UNITS/KG/HR 16.2 mls/hr IV .Q24H [facility] Rx#: [id number] Oral 480 120 Output: Urine 750 1750 Other: Voiding Method Bedside Commode Bedside Commode # Voids 1 2 1 # Bowel Movements 1 2 1 - Constitutional General appearance: Present: cooperative, no acute distress - Respiratory Details: Lungs sounds very diminished bilaterally, coarse in the bases. Respirations even, nonlabored. Currently on 4 L nasal cannula with oxygen saturation 95%. Only able to achieve 500 mL on her incentive spirometry. Weak cough with productive clear sputum. - Cardiovascular Details: S1, S2 present. Regular rate and rhythm, sinus rhythm on telemetry. Palpable peripheral pulses bilaterally. No edema present. No calf pain or tenderness noted. - Gastrointestinal Gastrointestinal Comment(s): Abdomen soft, nontender, nondistended, round. Active bowel sounds 4 quadrants. Tolerating diet. Multiple liquid stools overnight. - Genitourinary Genitourinary Comment(s): Voiding clear, yellow urine. - Integumentary Integumentary Comment(s): Skin is warm and dry. - Neurologic Neurologic: Present: CNII-XII intact - Musculoskeletal Musculoskeletal: Present: gait normal, strength equal bilaterally - Psychiatric Psychiatric: Present: A&O x's 3, appropriate affect, intact judgment & insight - Allied health notes Allied health notes reviewed: nursing - Labs CBC & Chem 7: 10/27/17 05:44 10/27/17 05:44 Labs: Abnormal Lab Results - Last 24 Hours (Table) 10/27/17 10/27/17 Range/Units 05:44 05:44 RBC 3.78 L (3.80-5.40) m/uL RDW 16.0 H (11.5-15.5) % Plt Count 141 L (150-450) k/uL BUN 22 H (7-17) mg/dL Microbiology - Last 24 Hours (Table) 10/24/17 11:03 Urine Culture - Final Urine,Voided Escherichia coli - Imaging and Cardiology CT scan - abdomen: report reviewed, image reviewed CT scan - pelvis: report reviewed, image reviewed Assessment and Plan (1) Tobacco dependence in remission Current Visit: No Status: Resolved Code(s): F17.201 - NICOTINE DEPENDENCE, UNSPECIFIED, IN REMISSION SNOMED Code(s): 368083685 (2) History of breast cancer Current Visit: No Status: Resolved Code(s): Z85.3 - PERSONAL HISTORY OF MALIGNANT NEOPLASM OF BREAST SNOMED Code(s): 651887448 (3) History of right mastectomy Current Visit: No Status: Resolved Code(s): Z90.11 - ACQUIRED ABSENCE OF RIGHT BREAST AND NIPPLE SNOMED Code(s): 377196158 (4) History of chemotherapy Current Visit: No Status: Resolved Code(s): Z92.21 - PERSONAL HISTORY OF ANTINEOPLASTIC CHEMOTHERAPY SNOMED Code(s): 639070259 (5) Hypothyroid Current Visit: Yes Status: Chronic Code(s): E03.9 - HYPOTHYROIDISM, UNSPECIFIED SNOMED Code(s): 41246265 (6) Left main coronary artery disease Current Visit: Yes Status: Chronic Code(s): I25.10 - ATHSCL HEART DISEASE OF [place] CORONARY ARTERY W/O ANG PCTRS SNOMED Code(s): 968608835 (7) Family history of heart disease Current Visit: Yes Status: Chronic Code(s): Z82.49 - FAMILY HX OF ISCHEM HEART DIS AND OTH DIS OF THE CIRC SYS SNOMED Code(s): 319106112 (8) Constipation Current Visit: Yes Status: Acute Code(s): K59.00 - CONSTIPATION, UNSPECIFIED SNOMED Code(s): 88152297 (9) NSTEMI (non-ST elevated myocardial infarction) Current Visit: Yes Status: Acute Code(s): I21.4 - NON-ST ELEVATION (NSTEMI) MYOCARDIAL INFARCTION SNOMED Code(s): 780098787 (10) Medical non-compliance Current Visit: Yes Status: Acute Code(s): Z91.19 - PATIENT'S NONCOMPLIANCE W OTH MEDICAL TREATMENT AND REGIMEN SNOMED Code(s): 043951350 Plan: 1. Continue aspirin, statin, lisinopril, Lasix, Aldactone, beta gregg therapy. 2. Encourage increased activity. 3. GI consulted. Still awaiting recommendations. Constipation has resolved. CT abd/pelvis demonstrates small amount of parahepatic ascites, gallbladder wall thickening, no bowel obstruction 4. Dental clearance obtained. 5. Chest CT completed. Findings consistent with congestive heart failure. No distinct nodules identified. 6. Encourage incentive spirometry use. Encourage continued smoking cessation. Preoperative FEV1 is 33% of predicted. 7. Medical management per primary, cardiology. 8. Patient is high risk for surgery. More recommendations will follow based on recommendations from other specialty lines. Time with Patient: Greater than 30
--- NOTE | 2017-10-27 11:01 | PN ---
PROGRESS NOTE Ms. Sierra is a 72-year-old female who presented with symptoms of constipation, dyspnea and chest discomfort and diagnosed with non ST-segment elevation myocardial infarction. Subsequent workup consistent with severe triple-vessel disease, severely impaired left ventricular systolic function and mitral regurgitation. She is feeling better today. Her breathing is better. She has no longer any constipation. She has been able to have bowel movement and feeling well. She denies any dizziness or palpitation. She denies any nausea. She was felt to be very high risk for surgical intervention at this time because of her lung status. Her CT scan of the abdomen revealed no clear masses. She continues to be at this time on: Aspirin once a day, Lipitor 40 mg daily, Coreg 6.5 mg twice a day, Lasix 40 mg twice a day. Lisinopril 5 mg twice a day and spironolactone 25 mg daily. PHYSICAL EXAMINATION: Blood pressure 126/59 with a heart rate in the 60s. LUNGS: With decreased air exchange. No wheezes. Heart regular rate and rhythm S1, S2. No S3 with a holosystolic murmur in the apex. No diastolic murmur. No rub. ABDOMEN: Soft, nontender. Positive bowel sounds. EXTREMITIES: No edema. LAB DATA: BUN and creatinine 22 and 0.9, potassium 4.0, hemoglobin of 11.8. IMPRESSION: 1. Non ST-segment elevation myocardial infarction. 2. Severe coronary artery disease. 3. Severe cardiomyopathy with moderate to severe mitral regurgitation. 4. Severe chronic obstructive lung disease with chronic tobacco use. 5. Constipation, resolved. RECOMMENDATION: From the cardiac standpoint, the patient is a very hard risk for surgical intervention at this time. We will optimize her medical therapy. If she is stable, I would expect she should be able to be discharged home and followed as an outpatient to optimize her lung status and guide her treatment. I have discussed those findings with the patient and her family and they are in full understanding. MMODL / IJN: [id number] /
--- NOTE | 2017-10-27 12:21 | P.PN ---
Subjective Progress Note Date: 10/27/17 A pleasant 72-year-old female patient, who was diagnosed having extensive coronary artery disease, and I was asked to evaluate this patient's pulmonary status and comment on her status and readiness for any cardiac surgery I met this patient and the presence of her sister and the rest of family members. She was very nervous and at times she'll noted that she didn't want to receive any further treatment and she wanted to leave the hospital. Nevertheless, it was obvious to me that all the information the patient was receiving was overwhelming to her and she wasn't able to make sound judgments. In summary, the patient came into the hospital because of increased constipation. She hasn't had a bowel movement for the past 1-2 weeks and apparently she is been passing only small BMs. She has not had any good decent sized bowel movements. She is passing gas. Abdomen slightly distended also. No melanotic stool. No bright red blood per rectum and this is obviously a change in her bowel habits. Over the past 2 days she was also having some on and off chest pain and shortness of breath and she came into the hospital where she was found to have positive troponins and subsequent evaluation by cardiology to a cardiac catheterization the patient was found to have a tight left main approximately 6-70%, 30% RCA lesion, 20% circumflex lesion, 80% proximal LAD lesion, and the LV angiogram showed impaired LV function with an ejection fraction of 20% and the patient has +3 mitral regurgitation. She also has extensively calcified vessels and peripheral vascular disease. The patient is currently free of any chest pain. She does not have any swelling in lower extremities. She is a chronic smoker in she has more than [id number] smoking history. The patient had a chest x-ray that showed increased pulmonary vascular marking and there is some questionable nodularity in the right upper lung area. She has a chronic congested cough. Overall performance and functional status has been limited as the patient has not been active and she hasn't seen a physician for more than 10 years. No hemoptysis. No pleurisy. No unusual weight loss. No anemia or blood work. Troponins were positive as mentioned. She has history of breast cancer. The patient has undergone mastectomy followed by radiation therapy. The patient has also component of hypothyroidism with a TSH was found to be at 6.2 with a normal free T4 and the LDL level is at 130. On today's evaluation of 10/25/2017, the patient is still on oxygen on 4l to oxygen nasal cannula. She claims that she has not produced any bowel movements yet. Abdomen is less distended compared to yesterday. Her bedside spirometry was done and the patient has an FEV1 of 33% of predicted consistent with severe COPD. A ELLEN was done and the patient was again confirmed to have an ejection fraction of 20-25%. The patient also was found to have moderate degree of mitral regurgitation without any intracardiac shunt. There is moderate atherosclerotic changes of the ascending aorta. The patient also had carotid Dopplers that showed 50-70% stenosis of the right internal carotid artery. She remains quite not interested in undergoing any surgical evaluation/treatment for her cardiac disease. She thinks she does not have any major problem and she continues to talk about her bowel and the inability to have bowel movements. On the patient's condition essentially the same. No reported chest pain. The patient remains on a combination of Coreg 6.25 mg by mouth twice a day, lisinopril 5 mg by mouth twice a day and a combination of Lasix and Aldactone. The Lasix at a dose of 20 mg by mouth twice a day and Aldactone 25 mg by mouth daily. Aspirated, the patient is used to be a very poor surgical candidate for cardiac surgery. The patient is still having issues with constipation and she said she had diminished appetite. The patient has not seen by gastroenterology.. The patient had a evaluation by Dr. Menon and the patient was found to have no surgical risk from infection from any potential dental complications. Awaiting consultation by gastroenterology. On 10/27/2017, I'm seeing this patient for a follow-up. This is in follow-up on yesterday's evaluation. The patient underwent a CAT scan of the chest abdomen and pelvis. CAT scan of the chest showed COPD and bilateral pleural effusion and compressive atelectasis of the left lung base. CAT scan of the abdomen and pelvis showed no acute abnormality and there is no evidence of any bowel obstruction or constipation or stool impaction. The patient is producing adequate amount of bowel movements following laxative administration. No abdominal pain. No abdominal distention. No abdominal tenderness. She is still having some shortness of breath with limited amount of activity. She has severe COPD and based on FEV1 of 33% of predicted and it may be potentially an over estimate nontender the patient had some bilateral pleural effusion. Nevertheless, overall condition was evaluated and the patient has felt to be a poor surgical candidate for cardiac surgery. She is not having any chest pain. She is not having any palpitations. She has exertional dyspnea and chest congestion and she is producing multiple loose stools. Objective - Vital Signs Vital signs: Vital Signs Temp 97.3 F L 10/27/17 11:20 Pulse 62 10/27/17 11:20 Resp 22 10/27/17 11:20 BP 115/60 10/27/17 11:20 Pulse Ox 96 10/27/17 11:20 Intake & Output 10/26/17 10/27/17 10/27/17 18:59 06:59 18:59 Intake Total 721.6 120 Output Total 750 1750 Balance -28.4 -1750 120 Weight 68 kg Intake: IV 241.6 .9 80 Heparin Sod,Pork in 0.45% 161.6 NaCl 25,000 unit In 0.45 % NaCl 1 500ml.bag @ 12 UNITS/KG/HR 16.2 mls/hr IV .Q24H [facility] Rx#: [id number] Oral 480 120 Output: Urine 750 1750 Other: Voiding Method Bedside Commode Bedside Commode Bedside Commode # Voids 1 2 1 # Bowel Movements 1 2 1 - Exam Gen. appearance the patient is a bit nervous and she does not seem to be in acute respiratory distress.Head exam was generally normal. There was no scleral icterus or corneal arcus. Mucous membranes were moist.Neck was supple and without jugular venous distension, thyromegaly, or carotid bruits. Carotids were easily palpable bilaterally. There was no adenopathy. Poor dentition and the patient has no thrush. Lungs sounds are diminished bilaterally otherwise there are some scattered rhonchi. Nares of ecchymosis of breathing. Heart sounds are regular, positive sinus stool and there is no significant murmurs appreciated. Overall heart sounds are quite distant. No right ventricular heave or any thrill.Abdominal exam revealed normal bowel sounds. The abdomen was soft, non-tender, and without masses, organomegaly, or appreciable enlargement of the abdominal aorta.Examination of the extremities revealed easily palpable radial, femoral and pedal pulses. There was no cyanosis, clubbing or edema.Examination of the skin revealed no evidence of significant rashes, suspicious appearing nevi or other concerning lesions. The patient has a right mastectomy. Neurologically she is awake and alert and is no focal neurological deficit. - Labs CBC & Chem 7: 10/27/17 05:44 10/27/17 05:44 Labs: Abnormal Lab Results - Last 24 Hours (Table) 10/27/17 10/27/17 Range/Units 05:44 05:44 RBC 3.78 L (3.80-5.40) m/uL RDW 16.0 H (11.5-15.5) % Plt Count 141 L (150-450) k/uL BUN 22 H (7-17) mg/dL Microbiology - Last 24 Hours (Table) 10/24/17 11:03 Urine Culture - Final Urine,Voided Escherichia coli Assessment and Plan Plan: Assessment 1 preoperative pulmonary evaluation for possible cardiac surgery. The patient comes in with an acute non-ST segment elevation myocardial infarction and furthermore the cardiac catheterization shows extensive coronary artery disease and severe mitral regurgitation. She has impaired LV function with ejection fraction of 20%, in addition to moderate to severe MR based on today's ELLEN. The patient has also carotid artery stenosis involving the right coronary artery measuring somewhere between 50-59% and the patient also has COPD which is severe and a preop spirometry showed an FEV1 of 33%. 2 multivessel coronary artery disease 3 acute non-ST segment patient myocardial infarction 4 new onset constipation and obviously this is a recent change in bowel habits which raises concerns to hours GI malignancies 5 poor medical follow-up and compliance over the years as the patient has not seen any physician for more than 10 years and she does not seem to be a good candidate for subsequent follow-ups as the patient clearly states that she is very nervous from physicians and medical care in general and she may not undergo the appropriate follow-ups needed for medical care 6 smoker 7 COPD, based on FEV1 is nor that of 33% on bedside spirometry. 8 constipation with negative CAT scan of the abdomen and pelvis and that is no evidence of any bowel obstruction. 9 elevated TSH probably an early hypothyroidism 10 breast cancer and a previous right mastectomy and previous radiation therapy. 11 right internal carotid artery disease estimated to be between 50-69% Plan As mentioned, a very poor surgical candidate for cardiac surgery. May need to be optimized medically first and her condition may need to be reevaluated on outpatient basis. Pulmonary status is poor. Her readiness for surgery as far as mental readiness is not there and the patient does not have adequate medical follow-up habits, which brings her risk for surgery very high. Continue Lasix. Continue Coreg. Continue Zestril. Continue Aldactone. Continue aspirin. Assess for home O2 knowing that the patient is still on 4 L of oxygen nasal cannula. Would recommend weaning down the FiO2 and assess the patient's need for home O2 on outpatient basis. We'll continue to follow.
--- NOTE | 2017-10-27 13:50 | P.PN ---
Subjective Principal diagnosis: Obstructive coronary artery disease Ischemic cardiomyopathy Patient is a 72-year-old female who does not follow with a physician, long-time smoker however quit a couple weeks ago with onset of an upper respiratory type infection. Patient presented to the ED with a 2+ week history of constipation, states the last full bowel movement was about 2 weeks ago and since then has only been having intermittent very small hard bowel movements. While in the ED , patient also complained about right-sided chest wall pain located at the bottom of her rib cage which she has been having intermittently and which she thinks is related to her constipation. Patient also stated she had some what she thought was indigestion the night prior to presentation, with some epigastric discomfort which she attributed to eating chili before bed. While in the ED, found to have a troponin of 0.113 and started on heparin, admitted to telemetry for presumed NSTEMI. Echocardiogram done showing an ejection fraction of 20-25%, LA severely dilated , RA appeared enlarged, moderate to severe mitral regurgitation. Subsequently patient underwent cardiac catheterization on 10/24/2017 showing 60-70% stenosis of the left main, 80% stenosis of left anterior descending, 20-30% of obtuse marginal; severe global hypokinesis with an EF of 20% and 4+ mitral regurgitation, also noted to have severe peripheral arterial disease. Cardiology recommended cardiothoracic surgery consultation for evaluation for coronary artery bypass grafting. Pulmonology consulted due to patient's smoking history and obvious poor lung capacity based on physical exam, bedside testing showed an FEV1 of 33%, however this was in the setting of volume overload secondary to acute systolic heart failure. Pulmonology stating patient is a poor surgical candidate, however recommending gastroenterology evaluation due to her GI complaints. Patient seen and examined resting comfortably in her bed, family bedside. Patient states her breathing is improving. Is still on oxygen and will need a home oxygen eval. States she has not ambulated much. Reports having a good- sized bowel movement this morning and no longer feels constipated. Objective - Vital Signs Vital signs: Vital Signs Temp 97.3 F L 10/27/17 11:20 Pulse 62 10/27/17 11:20 Resp 22 10/27/17 11:20 BP 115/60 10/27/17 11:20 Pulse Ox 96 10/27/17 11:20 Intake & Output 10/26/17 10/27/17 10/27/17 18:59 06:59 18:59 Intake Total 721.6 360 Output Total 750 1750 300 Balance -28.4 -1750 60 Weight 68 kg Intake: IV 241.6 .9 80 Heparin Sod,Pork in 0.45% 161.6 NaCl 25,000 unit In 0.45 % NaCl 1 500ml.bag @ 12 UNITS/KG/HR 16.2 mls/hr IV .Q24H [facility] Rx#: [id number] Oral 480 360 Output: Urine 750 1750 300 Other: Voiding Method Bedside Commode Bedside Commode Bedside Commode # Voids 1 2 1 # Bowel Movements 1 2 1 - Exam General: A/O x 3, NAD, Lying in bed comfortably HEENT: EOMI, MMM, atraumatic normocephalic. Poor dentition. Missing most teeth. Neck: Supple. No JVD, trachea midline CVS: Regular rate and rhythm. Distant heart sounds. + S1/S2, slight systolic ejection murmur appreciated Respiratory: Bilateral air entry noted. Clear to auscultation, no wheeze, no rhonchi Abdomen: Soft, nontender, nondistended. Bowel sounds audible Extremities: No lower extremity edema. No clubbing or cyanosis Skin: No rash or skin change noted Psych: Without hallucinations, abnormal affect, or abnormal behaviors during the examination - Labs CBC & Chem 7: 10/27/17 05:44 10/27/17 05:44 Labs: Abnormal Lab Results - Last 24 Hours (Table) 10/27/17 10/27/17 Range/Units 05:44 05:44 RBC 3.78 L (3.80-5.40) m/uL RDW 16.0 H (11.5-15.5) % Plt Count 141 L (150-450) k/uL BUN 22 H (7-17) mg/dL Microbiology - Last 24 Hours (Table) 10/24/17 11:03 Urine Culture - Final Urine,Voided Escherichia coli Assessment and Plan (1) NSTEMI (non-ST elevated myocardial infarction) Current Visit: Yes Status: Acute Code(s): I21.4 - NON-ST ELEVATION (NSTEMI) MYOCARDIAL INFARCTION SNOMED Code(s): 638556453 (2) Constipation Current Visit: Yes Status: Acute Code(s): K59.00 - CONSTIPATION, UNSPECIFIED SNOMED Code(s): 85846553 (3) CAD (coronary artery disease), [place] coronary artery Current Visit: Yes Status: Acute Code(s): I25.10 - ATHSCL HEART DISEASE OF [place] CORONARY ARTERY W/O ANG PCTRS SNOMED Code(s): 9987416258864 (4) Ischemic cardiomyopathy Current Visit: Yes Status: Acute Code(s): I25.5 - ISCHEMIC CARDIOMYOPATHY SNOMED Code(s): 900850770 (5) Severe mitral regurgitation Current Visit: Yes Status: Acute Code(s): I34.0 - NONRHEUMATIC MITRAL (VALVE ) INSUFFICIENCY SNOMED Code(s): 16671580 (6) Acute systolic heart failure Current Visit: Yes Status: Acute Code(s): I50.21 - ACUTE SYSTOLIC ( CONGESTIVE) HEART FAILURE SNOMED Code(s): 051617318 Plan: 72-year-old female who does not follow with a physician, long-time smoker who presented with principal complaint of constipation though it did admit to some chest discomfort, found to have elevated troponin. Further workup included an echocardiogram done showing an ejection fraction of 20-25%, LA severely dilated , RA appeared enlarged, moderate to severe mitral regurgitation. Subsequently patient underwent cardiac catheterization on 10/24/2017 showing 60-70% stenosis of the left main, 80% stenosis of left anterior descending, 20-30% of obtuse marginal; severe global hypokinesis with an EF of 20% and 4+ mitral regurgitation, also noted to have severe peripheral arterial disease. Cardiology recommended cardiothoracic surgery consultation for evaluation for coronary artery bypass grafting. CTS on consult. PFT bedside testing shows FEV1 33%, however this is in the setting of fluid overload with acute systolic heart failure. Pulmonary on consult, state patient is a poor surgical candidate due to history of nonadherence, long sitting smoking history, poor lung compliance. Also requesting gastroenterology evaluation due to her GI complaints. CT abdomen showed no acute pathology, did show improvement in the bilateral lower lung effusions. Patient has completed over 48 hours of heparin, discontinued yesterday. Continue on carvedilol, lisinopril, atorvastatin, spironolactone, Lasix. ELLEN done better characterization of the patient's valvular disease. Patient will need a home oxygen even now, still on supplemental oxygen at this time.
--- NOTE | 2017-10-27 15:51 | P.CONS ---
History of Present Illness - Reason for Consult Consult date: 10/26/17 Constipation - History of Present Illness The patient is a 72-year-old female with advanced COPD and significant carotid atherosclerotic heart disease who presented to the hospital with complaints of change in bowel habits and chest discomfort. She indicated that she has not had a bowel movement for one to 2 weeks prior to admission and that she feels bloated and the urge to go and feels a bulging in her perineal area when she attempts to have a bowel movement without any actual movement happening. There is no change in her medications and her diet. She has not had a colonoscopy in the very long time and she has not seen a physician for more than 10 years. Her daughter works at a doctor's office was at the bedside at the time of my visit. The patient had the smoked heavily for more than 40 years and has decreased exercise tolerance and is being evaluated by pulmonary for candidacy of open heart surgery. We are asked to see her regarding her constipation to rule out colonic malignancy in the event that open heart surgery is performed. The patient has just attempted to pass a bowel movement prior to my arrival and she said that there was a little fresh blood on the toilet tissue but did not pass any stools. There is no history of nausea, vomiting, hematemesis or melena. Review of Systems Constitutional: Denies fever, chills, sweats, weight gain, or loss. HEENT: Negative for migraines, blurred vision or loss, earaches, drainage, tinnitus, oral mucosal lesions, dysphagia, or odynophagia. Cardiac: See present illness above. Respiratory: Has shortness of breath but no hemoptysis, cough, or sputum production. Gastrointestinal: See HPI for pertinent findings. Genitourinary: Negative for hematuria, urgency, frequency, polyuria, dysuria. Musculoskeletal: Negative for muscle aches, swelling, arthritis, and arthralgias. Neurologic: Negative for stroke or TIA. Endocrine: Negative for diabetes, has low thyroid. Skin: Negative for rash or itching. Psychiatric: Negative history for depression and anxiety. Past Medical History Past Medical History: Cancer, COPD, Thyroid Disorder Additional Past Medical History / Comment(s): Breast cancer with a previous right mastectomy followed by radiation therapy, COPD, coronary artery disease with multivessel involvement, severe mitral regurgitation as evident on the echocardiogram and a cardiac catheterization, scoliosis of the spine, hypothyroidism, vitamin D deficiency. History of Any Multi-Drug Resistant Organisms: None Reported Past Surgical History: Breast Surgery Additional Past Surgical History / Comment(s): Right mastectomy, cardiac catheterization Past Psychological History: No Psychological Hx Reported Smoking Status: Heavy tobacco smoker (37-pack per year smoking history and the patient is trying to quit smoking apparently she quit smoking approximately a month ago. She smokes 1 pack every other day) Past Alcohol Use History: Daily Additional Past Alcohol Use History / Comment(s): Daily glass of wine Past Drug Use History: None Reported - Past Family History Father Family Medical History: Coronary Artery Disease (CAD), CVA/TIA, Hypertension, Myocardial Infarction ([place]) Mother Family Medical History: Coronary Artery Disease (CAD), CVA/TIA, Diabetes Mellitus, Hypertension, Myocardial Infarction ([place]) Additional Family Medical History / Comment(s): pace maker Medications and Allergies Home Medications Medication Instructions Recorded Confirmed Type Ascorbic Acid [Vitamin C] 1,000 mg PO DAILY 10/23/17 10/23/17 History Cholecalciferol [Vitamin D3] 1,000 unit PO DAILY 10/23/17 10/23/17 History Multivitamins, Thera [Multivitamin 1 tab PO DAILY 10/23/17 10/23/17 History (formulary)] Vitamin B Complex 1 cap PO DAILY 10/23/17 10/23/17 History Allergies Allergy/AdvReac Type Severity Reaction Status Date / Time morphine Allergy Dyspnea Verified 10/23/17 15:53 Physical Exam Vitals: Vital Signs Temp Pulse Resp BP Pulse Ox 10/26/17 08:00 97.6 F 73 20 112/54 97 10/26/17 04:00 96.3 F L 71 18 115/56 93 L 10/26/17 00:00 96.1 F L 67 18 99/56 96 10/25/17 22:00 96.2 F L 73 18 109/54 92 L 10/25/17 20:00 96.2 F L 73 18 109/54 91 L 10/25/17 15:43 96.5 F L 76 18 114/60 94 L 10/25/17 12:00 97.3 F L 70 18 123/56 90 L Intake and Output 10/25/17 10/26/17 10/26/17 22:59 06:59 14:59 Intake Total 209.48 481.6 Output Total 400 1000 Balance -190.52 -1000 481.6 Intake: IV 241.6 .9 80 Heparin Sod,Pork in 0.45% 161.6 NaCl 25,000 unit In 0.45 % NaCl 1 500ml.bag @ 12 UNITS/KG/HR 16.2 mls/hr IV .Q24H BETSY Rx#: [id number] Intake, IV Titration 209.48 Amount Heparin Sod,Pork in 0.45% 209.48 NaCl 25,000 unit In 0.45 % NaCl 1 500ml.bag @ 12 UNITS/KG/HR 16.2 mls/hr IV .Q24H BETSY Rx#: [id number] Oral 240 Output: Urine 400 1000 Other: Voiding Method Bedside Commode Bedside Commode # Voids 2 Weight 68 kg 68 kg General appearance: Appeared stated age, very pleasant in no acute distress. HEENT: Head is normocephalic and atraumatic. Pupils are equal and reactive. Oropharynx is clear without lesions. Neck: Supple without lymphadenopathy. Trachea midline. Heart: S1 S2. Regular rate and rhythm. Lungs: No crackles or wheezes are heard. Abdomen: Soft, nontender, nondistended with bowel sounds. No peritoneal signs. No palpable organomegaly or masses. Rectal examination revealed no masses or any impacted stools. There was no blood on the gloved examining finger. Extremities: Normal skin color and turgor. No cyanosis, rash, ulceration, clubbing, or edema. Radial and pedal pulses are 2/4 bilaterally. Neurological: No focal deficits. Strength and sensation are grossly intact. Results CBC & Chem 7: 10/27/17 05:44 10/27/17 05:44 Labs: Abnormal Lab Results - Last 24 Hours (Table) 10/25/17 10/26/17 10/26/17 Range/Units 17:01 01:13 05:53 RBC 3.73 L (3.80-5.40) m/uL RDW 15.9 H (11.5-15.5) % Plt Count 133 L (150-450) k/uL APTT 34.8 H 69.6 H (22.0-30.0) sec BUN (7-17) mg/dL Glucose (74-99) mg/dL Calcium (8.4-10.2) mg/dL 10/26/17 10/26/17 Range/Units 05:53 06:03 RBC (3.80-5.40) m/uL RDW (11.5-15.5) % Plt Count (150-450) k/uL APTT 57.7 H (22.0-30.0) sec BUN 22 H (7-17) mg/dL Glucose 111 H (74-99) mg/dL Calcium 8.2 L (8.4-10.2) mg/dL Microbiology - Last 24 Hours (Table) 10/24/17 15:44 Nasal Screen MRSA/MSSA ([facility]) - Final Nasal Swab 10/24/17 11:03 Urine Culture - Preliminary Urine,Voided Gram Neg Bacilli Assessment and Plan Assessment: Change in bowel habits in the form of constipation could be diet related. The possibility of colon neoplasm should be kept in mind in this age group. Despite the absence of overt bleeding. Plan: Agree with your current management. The patient is undergoing a CT of the abdomen this afternoon as per pulmonary and assessing her candidacy for open heart surgery. I would consider a colonoscopy based on those findings if cleared to undergo the the procedure knowing the demands of the preparation and the actual endoscopic procedure itself. I will discuss with you and with the educational guidance counselor and follow with interest.
[2017-10-28 06:28] LABS: Basophils % (A) 0 %; Eosinophils # (A) 0.4 k/uL (0-0.7); Eosinophils % (A) 5 %; HCT 35.8 % (34.0-46.0); HGB 11.2 gm/dL (11.4-16.0); Hypochromasia Moderate; Lymphocytes # (A) 1.8 k/uL (1.0-4.8); Lymphocytes % (A) 21 %; MCH 31.1 pg (25.0-35.0); MCHC 31.2 g/dL (31.0-37.0); MCV 99.7 fL (80.0-100.0); Macrocytosis Slight; Mean Platelet Volume 8.8; Monocytes # (A) 0.7 k/uL (0-1.0); Monocytes % (A) 8 %; Neutrophils # (A) 5.5 k/uL (1.3-7.7); Neutrophils % (A) 63 %; Platelet Count 140 k/uL (150-450); RBC 3.59 m/uL (3.80-5.40); RDW 15.5 % (11.5-15.5); WBC 8.7 k/uL (3.8-10.6)
[2017-10-28] MEDS: CARVEDILOL 6.25 MG TAB PO SCH ×2 (06:40→18:41)
[2017-10-28 06:42] LABS: Calcium 8.5 mg/dL (8.4-10.2); Potassium 3.8 mmol/L (3.5-5.1)
[2017-10-28] MEDS: ASPIRIN 81 MG PO SCH (08:52)
[2017-10-28] MEDS: ATORVASTATIN 40 MG TAB PO SCH (08:52)
[2017-10-28] MEDS: FUROSEMIDE 20 MG TAB PO SCH ×2 (08:52→20:47)
[2017-10-28] MEDS: LISINOPRIL 5 MG TAB PO SCH ×2 (08:52→20:48)
[2017-10-28] MEDS: MUPIROCIN 2% OINT 22 GM TUBE NASAL SCH ×2 (08:52→20:48)
[2017-10-28] MEDS: DOCUSATE 100 MG CAP PO SCH (08:52)
[2017-10-28] MEDS: SPIRONOLACTONE 25 MG TAB PO SCH (08:52)
[2017-10-28] MEDS: HEPARIN SOD,PORK IN 0.45% NACL 25,000 UNIT in 0.45% NACL 1 500ML.BAG IV SCH (11:08)
--- NOTE | 2017-10-28 12:08 | PN ---
PROGRESS NOTE Mrs. Sierra is a 72-year-old female who presented with evidence of congestive heart failure with severely impaired left ventricular systolic function. No significant mitral regurgitation. She is feeling better today. Her breathing is better. She is ambulating without difficulty. She denies any dizziness or palpitation. She denies any nausea. She continued to be in sinus mechanism. She continues to be at this time on aspirin once a day, Lipitor 4 mg daily, Coreg 6.5 mg twice a day, Lasix 20 mg twice a day, lisinopril 5 mg twice a day and spironolactone 25 mg daily. PHYSICAL EXAMINATION: Blood pressure 116/50 with a heart in the 60s. LUNGS: Clear. HEART: Regular rate and rhythm, S1, S2. No S3 with a holosystolic murmur at the apex. No diastolic murmur. ABDOMEN: Soft, nontender. EXTREMITIES: No edema. LAB DATA: Revealed BUN and creatinine 20 and 0.8, potassium 3.8, hemoglobin of 11.2. IMPRESSION: 1. Severe cardiomyopathy, ischemic with significant mitral regurgitation. 2. Severe chronic obstructive lung disease. 3. Constipation, resolved. 4. Prior history of smoking. 5. Non ST-segment elevation myocardial infarction. RECOMMENDATION: Will continue present therapy. Increase level of activity. If she is stable, I would expect she should be able to be discharged home tomorrow and follow up with Dr. Perez to see if her lung status improves to make her a surgical candidate. I have discussed those findings with the patient and her family. MMODL / IJN: [id number] /
--- NOTE | 2017-10-28 14:52 | P.PN ---
Subjective Progress Note Date: 10/28/17 Principal diagnosis: Acute non-ST elevation myocardial infarction A pleasant 72-year-old female patient, who was diagnosed having extensive coronary artery disease, and I was asked to evaluate this patient's pulmonary status and comment on her status and readiness for any cardiac surgery I met this patient and the presence of her sister and the rest of family members. She was very nervous and at times she'll noted that she didn't want to receive any further treatment and she wanted to leave the hospital. Nevertheless, it was obvious to me that all the information the patient was receiving was overwhelming to her and she wasn't able to make sound judgments. In summary, the patient came into the hospital because of increased constipation. She hasn't had a bowel movement for the past 1-2 weeks and apparently she is been passing only small BMs. She has not had any good decent sized bowel movements. She is passing gas. Abdomen slightly distended also. No melanotic stool. No bright red blood per rectum and this is obviously a change in her bowel habits. Over the past 2 days she was also having some on and off chest pain and shortness of breath and she came into the hospital where she was found to have positive troponins and subsequent evaluation by cardiology to a cardiac catheterization the patient was found to have a tight left main approximately 6-70%, 30% RCA lesion, 20% circumflex lesion, 80% proximal LAD lesion, and the LV angiogram showed impaired LV function with an ejection fraction of 20% and the patient has +3 mitral regurgitation. She also has extensively calcified vessels and peripheral vascular disease. The patient is currently free of any chest pain. She does not have any swelling in lower extremities. She is a chronic smoker in she has more than [id number] smoking history. The patient had a chest x-ray that showed increased pulmonary vascular marking and there is some questionable nodularity in the right upper lung area. She has a chronic congested cough. Overall performance and functional status has been limited as the patient has not been active and she hasn't seen a physician for more than 10 years. No hemoptysis. No pleurisy. No unusual weight loss. No anemia or blood work. Troponins were positive as mentioned. She has history of breast cancer. The patient has undergone mastectomy followed by radiation therapy. The patient has also component of hypothyroidism with a TSH was found to be at 6.2 with a normal free T4 and the LDL level is at 130. On today's evaluation of 10/25/2017, the patient is still on oxygen on 4l to oxygen nasal cannula. She claims that she has not produced any bowel movements yet. Abdomen is less distended compared to yesterday. Her bedside spirometry was done and the patient has an FEV1 of 33% of predicted consistent with severe COPD. A ELLEN was done and the patient was again confirmed to have an ejection fraction of 20-25%. The patient also was found to have moderate degree of mitral regurgitation without any intracardiac shunt. There is moderate atherosclerotic changes of the ascending aorta. The patient also had carotid Dopplers that showed 50-70% stenosis of the right internal carotid artery. She remains quite not interested in undergoing any surgical evaluation/treatment for her cardiac disease. She thinks she does not have any major problem and she continues to talk about her bowel and the inability to have bowel movements. On the patient's condition essentially the same. No reported chest pain. The patient remains on a combination of Coreg 6.25 mg by mouth twice a day, lisinopril 5 mg by mouth twice a day and a combination of Lasix and Aldactone. The Lasix at a dose of 20 mg by mouth twice a day and Aldactone 25 mg by mouth daily. Aspirated, the patient is used to be a very poor surgical candidate for cardiac surgery. The patient is still having issues with constipation and she said she had diminished appetite. The patient has not seen by gastroenterology.. The patient had a evaluation by Dr. Menon and the patient was found to have no surgical risk from infection from any potential dental complications. Awaiting consultation by gastroenterology. On 10/27/2017, I'm seeing this patient for a follow-up. This is in follow-up on yesterday's evaluation. The patient underwent a CAT scan of the chest abdomen and pelvis. CAT scan of the chest showed COPD and bilateral pleural effusion and compressive atelectasis of the left lung base. CAT scan of the abdomen and pelvis showed no acute abnormality and there is no evidence of any bowel obstruction or constipation or stool impaction. The patient is producing adequate amount of bowel movements following laxative administration. No abdominal pain. No abdominal distention. No abdominal tenderness. She is still having some shortness of breath with limited amount of activity. She has severe COPD and based on FEV1 of 33% of predicted and it may be potentially an over estimate nontender the patient had some bilateral pleural effusion. Nevertheless, overall condition was evaluated and the patient has felt to be a poor surgical candidate for cardiac surgery. She is not having any chest pain. She is not having any palpitations. She has exertional dyspnea and chest congestion and she is producing multiple loose stools. Reevaluated today on 10/28/2017, patient is doing well clinically, and based on her pulmonary status, she is not the greatest candidate for myocardial revascularization. Patient was seen by Dr. Perez, and he felt that the patient should not be cleared at least not at this point for surgery. I reviewed her PFT and her spirometry from today, and I feel basically the same. Patient needs to be optimized, should follow up on outpatient basis, and depending on her overall improvement then we could reevaluate for surgery again. Today the patient is relatively asymptomatic. Labs were reviewed normal CBC, normal electrolytes are normal renal profile noted. Objective - Vital Signs Vital signs: Vital Signs Temp 96.2 F L 10/28/17 08:00 Pulse 68 10/28/17 12:00 Resp 18 10/28/17 04:00 BP 107/51 10/28/17 12:00 Pulse Ox 95 10/28/17 12:00 Intake & Output 10/27/17 10/28/17 10/28/17 18:59 06:59 18:59 Intake Total 600 300 480 Output Total 300 300 950 Balance 300 0 -470 Weight 67.3 kg Intake: IV 0 .9 0 Oral 600 300 480 Output: Urine 300 300 950 Other: Voiding Method Bedside Commode Bedside Commode # Voids 1 1 2 # Bowel Movements 1 0 - Exam Physical Exam: Revealed a 72-year-old female in no distress. Head: Atraumatic, normocephalic. HEENT:[Neck is supple.] [No neck masses.] [No thyromegaly.] [No JVD.] Chest: [Diminished breath sounds at the bases, no crackles or rhonchi or wheezes.] Cardiac Exam: [Normal S1 and S2, no S3 gallop, no murmur.] Abdomen: [Soft, nontender, no megaly, no rebound, no guarding, normal bowel sounds.] Extremities: [No clubbing, no edema, no cyanosis.] Neurological Exam: [No focal neurologic deficit. Psychiatric: Normal mood affect and mental status examination. Lymphatics: No lymphadenopathy.] - Labs CBC & Chem 7: 10/28/17 05:48 10/28/17 05:48 Labs: Abnormal Lab Results - Last 24 Hours (Table) 10/28/17 10/28/17 Range/Units 05:48 05:48 RBC 3.59 L (3.80-5.40) m/uL Hgb 11.2 L (11.4-16.0) gm/dL Plt Count 140 L (150-450) k/uL BUN 20 H (7-17) mg/dL Glucose 100 H (74-99) mg/dL Assessment and Plan Assessment: 1 preoperative pulmonary evaluation for possible cardiac surgery. The patient comes in with an acute non-ST segment elevation myocardial infarction and furthermore the cardiac catheterization shows extensive coronary artery disease and severe mitral regurgitation. She has impaired LV function with ejection fraction of 20%, in addition to moderate to severe MR based on today's ELLEN. The patient has also carotid artery stenosis involving the right coronary artery measuring somewhere between 50-59% and the patient also has COPD which is severe and a preop spirometry showed an FEV1 of 33%. 2 multivessel coronary artery disease 3 acute non-ST segment patient myocardial infarction 4 new onset constipation and obviously this is a recent change in bowel habits which raises concerns to hours GI malignancies 5 poor medical follow-up and compliance over the years as the patient has not seen any physician for more than 10 years and she does not seem to be a good candidate for subsequent follow-ups as the patient clearly states that she is very nervous from physicians and medical care in general and she may not undergo the appropriate follow-ups needed for medical care 6 smoker 7 COPD, based on FEV1 is nor that of 33% on bedside spirometry. 8 constipation with negative CAT scan of the abdomen and pelvis and that is no evidence of any bowel obstruction. 9 elevated TSH probably an early hypothyroidism 10 breast cancer and a previous right mastectomy and previous radiation therapy. 11 right internal carotid artery disease estimated to be between 50-69% Recommendation: I agree with the recommendation of Dr. Perez, patient has very poor pulmonary status, continue medical management, follow up on outpatient basis, and will decide accordingly. Time with Patient: Less than 30
--- NOTE | 2017-10-28 15:24 | P.PN ---
Subjective Progress Note Date: 10/28/17 Principal diagnosis: Severe coronary artery disease with left main disease. Impaired LV function. Mitral regurgitation. History of right breast cancer with mastectomy, chemo, and radiation in 1997. History of hypothyroidism, currently not on any medications as she stopped them on her own. Recent cessation of tobacco use with previous [id number] history. Medical noncompliance. Significant family history of coronary artery disease. Right carotid stenosis, 50-69%. Severe COPD with an FEV1 35% of predicted. Hyperlipidemia with an LDL of 130. Patient is currently sitting up to the bedside chair. She is in no acute distress. She denies any complaints of shortness of breath or pain at this time. She has multiple family members at her bedside at this time. Her questions were answered to the best of my ability. A 5 m walk test was completed by cardiac rehab today, time 1: 15.8 seconds, time 2: 15.7 seconds, time 3:18.2 seconds. Objective - Vital Signs Vital signs: Vital Signs Temp 96.2 F L 10/28/17 08:00 Pulse 68 10/28/17 12:00 Resp 18 10/28/17 04:00 BP 107/51 10/28/17 12:00 Pulse Ox 95 10/28/17 12:00 Intake & Output 10/27/17 10/28/17 10/28/17 18:59 06:59 18:59 Intake Total 600 300 480 Output Total 300 300 950 Balance 300 0 -470 Weight 67.3 kg Intake: IV 0 .9 0 Oral 600 300 480 Output: Urine 300 300 950 Other: Voiding Method Bedside Commode Bedside Commode # Voids 1 1 2 # Bowel Movements 1 0 - Constitutional General appearance: Present: cooperative, no acute distress - Respiratory Details: Lungs sounds essentially clear to her bilateral upper lobes, diminished bilateral bases. Respirations are symmetrical and nonlabored. Oxygen saturation are 92% on 2 L nasal cannula. She is achieving 1000 mL on her incentive spirometry with encouragement. - Cardiovascular Details: Regular rhythm and rate. S1 and S2 present, negative for S3, gallop or murmur. No edema present. Remote telemetry showing normal sinus rhythm heart rate 75. Knee-high sequential compression devices in place to her bilateral lower extremities. - Gastrointestinal Gastrointestinal Comment(s): Abdomen is soft, nontender and nondistended. Active bowel sounds all 4 abdominal quadrants. Tolerating oral intake. - Genitourinary Genitourinary Comment(s): Voiding clear yellow urine. - Integumentary Integumentary Comment(s): Skin is warm and dry. No rashes or abnormal pigmentation. - Neurologic Neurologic: Present: CNII-XII intact - Musculoskeletal Musculoskeletal: Present: gait normal, strength equal bilaterally - Psychiatric Psychiatric: Present: A&O x's 3, appropriate affect, intact judgment & insight - Allied health notes Allied health notes reviewed: nursing - Labs CBC & Chem 7: 10/28/17 05:48 10/28/17 05:48 Labs: Abnormal Lab Results - Last 24 Hours (Table) 10/28/17 10/28/17 Range/Units 05:48 05:48 RBC 3.59 L (3.80-5.40) m/uL Hgb 11.2 L (11.4-16.0) gm/dL Plt Count 140 L (150-450) k/uL BUN 20 H (7-17) mg/dL Glucose 100 H (74-99) mg/dL Assessment and Plan (1) COPD (chronic obstructive pulmonary disease) Current Visit: Yes Status: Acute Code(s): J44.9 - CHRONIC OBSTRUCTIVE PULMONARY DISEASE, UNSPECIFIED SNOMED Code(s): 30837428 (2) Constipation Current Visit: Yes Status: Acute Code(s): K59.00 - CONSTIPATION, UNSPECIFIED SNOMED Code(s): 36147469 (3) Ischemic cardiomyopathy Current Visit: Yes Status: Acute Code(s): I25.5 - ISCHEMIC CARDIOMYOPATHY SNOMED Code(s): 859547612 (4) NSTEMI (non-ST elevated myocardial infarction) Current Visit: Yes Status: Acute Code(s): I21.4 - NON-ST ELEVATION (NSTEMI) MYOCARDIAL INFARCTION SNOMED Code(s): 834732348 (5) Family history of heart disease Current Visit: Yes Status: Chronic Code(s): Z82.49 - FAMILY HX OF ISCHEM HEART DIS AND OTH DIS OF THE CIRC SYS SNOMED Code(s): 438272500 (6) Hypothyroid Current Visit: Yes Status: Chronic Code(s): E03.9 - HYPOTHYROIDISM, UNSPECIFIED SNOMED Code(s): 48764874 (7) Left main coronary artery disease Current Visit: Yes Status: Chronic Code(s): I25.10 - ATHSCL HEART DISEASE OF [place] CORONARY ARTERY W/O ANG PCTRS SNOMED Code(s): 840081926 (8) History of breast cancer Current Visit: No Status: Resolved Code(s): Z85.3 - PERSONAL HISTORY OF MALIGNANT NEOPLASM OF BREAST SNOMED Code(s): 779312645 (9) History of chemotherapy Current Visit: No Status: Resolved Code(s): Z92.21 - PERSONAL HISTORY OF ANTINEOPLASTIC CHEMOTHERAPY SNOMED Code(s): 020595527 (10) History of right mastectomy Current Visit: No Status: Resolved Code(s): Z90.11 - ACQUIRED ABSENCE OF RIGHT BREAST AND NIPPLE SNOMED Code(s): 663454925 (11) Tobacco dependence in remission Current Visit: No Status: Resolved Code(s): F17.201 - NICOTINE DEPENDENCE, UNSPECIFIED, IN REMISSION SNOMED Code(s): 472886492 Plan: 1. Continue aspirin, statin, lisinopril, Lasix, Aldactone, beta gregg therapy. 2. Encourage increased activity as tolerated. Out of bed for all meals. 3. GI consult recommendations noted and appreciated. 4. Dental clearance obtained. 5. Chest CT completed on 10/25/2017. Findings consistent with congestive heart failure. No distinct nodules identified. 6. Encourage incentive spirometry use. Encourage continued smoking cessation. Preoperative FEV1 repeated and shows 35% of predicted. 7. Medical management per primary, cardiology. 8. Patient is high risk for surgery. Cardiothoracic surgery will follow on an as-needed basis. Time with Patient: Greater than 30
--- NOTE | 2017-10-28 16:29 | P.PN ---
Subjective Progress Note Date: 10/28/17 Principal diagnosis: Constipation Patient is a 72-year-old female who does not follow with physician, senior care tobacco abuse, and history of needing inhalers in the past who presented to the emergency department with a two-week history of constipation area in the emergency department her initial vital signs showed tachycardia and hypertensive urgency with a blood pressure of 175/91. Initial laboratory analysis showed a slightly elevated troponin at 0.118 as well as possible urinary tract infection. She was admitted to the hospital for further monitoring. She underwent an abdominal flat plate showed no free air or bowel distraction. Carotid Doppler was performed that showed plaquing with moderate stenosis between 50-69% in the right internal carotid artery. She was seen by cardiology and underwent an echocardiogram which showed ejection fraction of 20- 25% and she ultimately underwent cardiac catheterization revealing multivessel coronary artery disease. Dr. Marks of thoracic surgery was consulted. He recommended further evaluation with ELLEN and CT of the chest today characterize nodules. ELLEN showed ejection fraction 20-25% with moderate mitral regurg. CT of the chest showed moderate mitral regurgitation. He struggled with constipation during her hospitalization was found to have fecal occult blood positive. CT chest abdomen pelvis showed moderate-sized bilateral pleural effusion, small amount of abdominal pelvic ascites, and no bowel distraction or colonic fecal stasis. She was seen by GI who recommended colonoscopy stable per pulmonary. Her initial PFT showed an FEV1 of 33% consistent with severe COPD, repeat PFT was consistent with an FEV1 of 35% of predicted. Pulmonary to clear her not a surgical candidate until she can be medically optimized. Plan was for medical optimization an outpatient follow-up to see she can be cleared for cardiac bypass surgery. Patient seen and examined at bedside. She denies any chest pain or shortness of breath. She states she was having shortness of breath as outpatient. She quit smoking approximately one month ago. We discussed all results of testing and she is aware of significant lifestyle modification she will need to make a long with taking her medications. Plan will be for evaluation for home O2 today and initiation of long-acting beta agonists while on telemetry to ensure that she does not develop any significant cardiac arrhythmia in order to help maximize her medical therapy for COPD. She is aware that she will need to follow-up after discharge. Objective - Vital Signs Vital signs: Vital Signs Temp 96.2 F L 10/28/17 08:00 Pulse 68 10/28/17 12:00 Resp 18 10/28/17 04:00 BP 107/51 10/28/17 12:00 Pulse Ox 95 10/28/17 12:00 Intake & Output 10/27/17 10/28/17 10/28/17 18:59 06:59 18:59 Intake Total 600 300 480 Output Total 385 412 4850 Balance 300 0 -870 Weight 67.3 kg Intake: IV 0 .9 0 Oral 600 300 480 Output: Urine 251 777 4335 Other: Voiding Method Bedside Commode Bedside Commode # Voids 1 1 400 # Bowel Movements 1 0 0 - Exam General: non toxic, no distress, appears older than stated age Derm: warm, dry Head: atraumatic, normocephalic, symmetric Eyes: EOMI, no lid lag, anicteric sclera Mouth: no lip lesion, mucus membranes moist Cardiovascular: S1S2 reg, no murmur, positive posterior tibial pulse bilateral, Lungs: decreased bs b/l, no rhonchi, no rales , no accessory muscle use Abdominal: soft, nontender to palpation, no guarding, no appreciable organomegaly Ext: no gross muscle atrophy, no edema, no contractures Neuro: CN II-XI grossly intact, no focal neuro deficits Psych: Alert, oriented, appropriate affect - Labs CBC & Chem 7: 10/28/17 05:48 10/28/17 05:48 Labs: Abnormal Lab Results - Last 24 Hours (Table) 10/28/17 10/28/17 Range/Units 05:48 05:48 RBC 3.59 L (3.80-5.40) m/uL Hgb 11.2 L (11.4-16.0) gm/dL Plt Count 140 L (150-450) k/uL BUN 20 H (7-17) mg/dL Glucose 100 H (74-99) mg/dL Assessment and Plan Assessment: NSTEMI with multivessel CAD, Severe systolic cardiomyopathy with severe mitral regurg, Carotid artery disease -Aspirin, Lipitor, Coreg, Lasix, lisinopril, aldactone -Telemetry -Discussed with general utility worker if LifeVest as indicated. -We'll need repeat BMP in approximately one week -Needs outpatient follow-up with Dr. Marks and Dr. Bass -We'll need PCP on discharge Severe COPD with history of long-standing tobacco abuse -Continue cessation -Optimize with initiation of Symbicort -Follow up as outpatient with Dr. Perez Constipation, resolved -Seen by GI -Outpatient colonoscopy once pulmonary function optimized Prediabetes with hemoglobin A1c 6.3 -Meet dietitian for counseling on low carbohydrate diet Thrombocytopenia -Likely reactive secondary to heparin, currently improving -Repeat CBC in a.m. E. coli urinary tract infection -Was having some abdominal pressure on admission so likely symptomatic -treat with 3 days of Keflex therapy based on sensitivities DVT prophylaxis: [] Discussed with: [] Anticipated discharge: [] Anticipated discharge place: [] A total of [] minutes was spent on the care of this complex patient more than 50 % of the time was spent in counseling and care coordination.
[2017-10-28] MEDS: SYMBICORT 160-4.5 MCG INHALER INHALATION SCH (19:56)
[2017-10-28] MEDS: CEPHALEXIN 500 MG CAP PO SCH (20:48)
[2017-10-29] MEDS: HEPARIN SODIUM,PORCINE 5,000 UNIT/ML 1 ML VIAL SQ SCH ×2 (00:41→09:13)
[2017-10-29 06:05] LABS: Basophils # (A) 0.1 k/uL (0-0.2); Basophils % (A) 1 %; Eosinophils # (A) 0.6 k/uL (0-0.7); Eosinophils % (A) 6 %; HCT 37.5 % (34.0-46.0); HGB 11.5 gm/dL (11.4-16.0); Hypochromasia Marked; Lymphocytes # (A) 1.7 k/uL (1.0-4.8); Lymphocytes % (A) 18 %; MCH 30.6 pg (25.0-35.0); MCHC 30.8 g/dL (31.0-37.0); MCV 99.3 fL (80.0-100.0); Macrocytosis Slight; Mean Platelet Volume 9.1; Monocytes # (A) 0.7 k/uL (0-1.0); Monocytes % (A) 8 %; Neutrophils # (A) 6.1 k/uL (1.3-7.7); Neutrophils % (A) 66 %; Platelet Count 155 k/uL (150-450); RBC 3.77 m/uL (3.80-5.40); RDW 15.6 % (11.5-15.5); WBC 9.4 k/uL (3.8-10.6)
[2017-10-29 06:14] LABS: Calcium 8.8 mg/dL (8.4-10.2); Magnesium 1.8 mg/dL (1.6-2.3); Potassium 4.3 mmol/L (3.5-5.1)
[2017-10-29] MEDS: CARVEDILOL 6.25 MG TAB PO SCH (06:41)
[2017-10-29] MEDS: SYMBICORT 160-4.5 MCG INHALER INHALATION SCH (08:06)
[2017-10-29] MEDS: MUPIROCIN 2% OINT 22 GM TUBE NASAL SCH (09:13)
[2017-10-29] MEDS: ATORVASTATIN 40 MG TAB PO SCH (09:13)
[2017-10-29] MEDS: LISINOPRIL 5 MG TAB PO SCH (09:14)
[2017-10-29] MEDS: DOCUSATE 100 MG CAP PO SCH (09:14)
[2017-10-29] MEDS: CEPHALEXIN 500 MG CAP PO SCH (09:14)
[2017-10-29] MEDS: FUROSEMIDE 20 MG TAB PO SCH (09:14)
[2017-10-29] MEDS: SPIRONOLACTONE 25 MG TAB PO SCH (09:17)
[2017-10-29] MEDS: ASPIRIN 81 MG PO SCH (09:17)
[2017-10-29 09:27] VITALS: BMI 23.5
[2017-10-29 10:02] VITALS: RESP 18
--- NOTE | 2017-10-29 11:40 | P.DS ---
Providers Date of admission: 10/23/17 17:37 Expected date of discharge: 10/29/17 Attending physician: Tony Cade MD Consults: 10/23/17 16:00 Consult Physician Stat Consulting Provider: Lisa Sargent Consult Reason/Comments: [email or web address] Do you want consulting provider notified?: Yes 10/24/17 10:42 Consult Physician Routine Consulting Provider: Nathaniel Marks Consult Reason/Comments: [email or web address] Do you want consulting provider notified?: Yes 10/24/17 11:03 Consult Physician Routine Consulting Provider: Alessio Perez Consult Reason/Comments: chavez Do you want consulting provider notified?: Already Contacted 10/25/17 11:51 Consult Physician Routine Consulting Provider: Guillermina Lerma Consult Reason/Comments: dental clearence for open heart surgery Do you want consulting provider notified?: Yes Primary care physician: Stated None - Discharge Diagnosis(es) (1) NSTEMI (non-ST elevated myocardial infarction) Current Visit: Yes Status: Acute (2) CAD (coronary artery disease), [place] coronary artery Current Visit: Yes Status: Acute (3) Ischemic cardiomyopathy Current Visit: Yes Status: Acute (4) Severe mitral regurgitation Current Visit: Yes Status: Acute (5) COPD (chronic obstructive pulmonary disease) Current Visit: Yes Status: Acute (6) Carotid arterial disease Current Visit: Yes Status: Acute (7) Constipation Current Visit: Yes Status: Acute (8) E. 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 In the emergency department her initial vital signs showed tachycardia and hypertensive urgency with a blood pressure of 175/ 91. Initial laboratory analysis showed a slightly elevated troponin at 0.118 as well as possible urinary tract infection. She was admitted to the hospital for further monitoring. She underwent an abdominal flat plate showed no free air or bowel obstruction. Carotid Doppler was performed that showed plaquing with moderate stenosis between 50-69% in the right internal carotid artery. She was seen by cardiology and underwent an echocardiogram which showed ejection fraction of 20-25% and she ultimately underwent cardiac catheterization revealing multivessel coronary artery disease. Dr. Marks of thoracic surgery was consulted. He recommended further evaluation with ELLEN and CT of the chest to characterize nodules. ELLEN showed ejection fraction 20-25% with moderate mitral regurg. CT of the chest showed no nodules but signs of CHF. She struggled with constipation during her hospitalization was found to have fecal occult blood positive. CT chest abdomen pelvis showed moderate- sized bilateral pleural effusion, small amount of abdominal pelvic ascites, and no bowel obstruction or colonic fecal stasis. She was seen by GI who recommended colonoscopy as outpatient if stable per pulmonary. Her initial PFT showed an FEV1 of 33% consistent with severe COPD, repeat PFT was consistent with an FEV1 of 35% of predicted. Pulmonary suggested that she is not a surgical candidate until she can be medically optimized. Plan was for medical optimization an outpatient follow-up to see she can be cleared for cardiac bypass surgery. She was also found have prediabetes with a hemoglobin A1c of 6.4. She met with the dietitian and was consuled on dietary changes. She was started coreg, lisinopril, laxis, aldactone, ASA, and lipitor. She was also started on symbicort and as need albuterol. Her oxygenation did improve during hospitalization but she was still requiring oxygen at discharge. On her home O2 eval she was 87% on room air and 93% on 3L NC. She was determined stable for discharge home. She is aware that she'll need to follow-up with multiple physicians after discharge. She already has an appointment scheduled with Dr. Davison for possible colonoscopy, Dr. Bass, and a nurse practitioner with Dr. Ling. She will also need to follow with Dr. Ana Marks outpatient. Have also provided her with a prescription to obtain a basic metabolic profile with results to Dr. Ling to ensure that she is not developing hyperkalemia and acute kidney injury. We talked extensively about continuing to abstain fro smoking and need for compliance with medications. She is aware of the importance of both. Patient seen and examined at bedside. No chest pain, shortness breath, nausea, vomiting, or constipation. Vital signs reviewed and stable. General: non toxic, no distress, appears at stated age Derm: warm, dry Head: atraumatic, normocephalic, symmetric Eyes: EOMI, no lid lag, anicteric sclera Mouth: no lip lesion, mucus membranes moist Cardiovascular: S1S2 reg, no murmur, positive posterior tibial pulse bilateral, Lungs: decreased bs b/ll, no rhonchi, no rales , no accessory muscle use Abdominal: soft, nontender to palpation, no guarding, no appreciable organomegaly Ext: no gross muscle atrophy, no edema, no contractures Neuro: CN II-XI grossly intact, no focal neuro deficits Psych: Alert, oriented, appropriate affect A total of 45 minutes of time were spent preparing this complex discharge summary . Patient Condition at Discharge: Serious Plan - Discharge Summary Discharge Rx Participant: No New Discharge Prescriptions: New Albuterol Inhaler [Ventolin Hfa Inhaler] 1 - 2 puff INHALATION Q6HR PRN #1 inhaler PRN Reason: Shortness Of Breath Or Wheezing Aspirin 81 mg PO DAILY #30 tab Atorvastatin [Lipitor] 40 mg PO DAILY #30 tab Budesonide-Formot 160-4.5 Mcg [Symbicort 160-4.5 Mcg Inhaler] 2 puff INHALATION RT-BID #1 inhaler Carvedilol [Coreg] 6.25 mg PO BID-W/MEALS #60 tab Cephalexin [Keflex] 500 mg PO BID #6 cap Furosemide [Lasix] 20 mg PO BID #60 tab Lisinopril [Zestril] 5 mg PO BID #30 tab Nitroglycerin Sl Tabs [Nitrostat] 0.4 mg SUBLINGUAL Q5M PRN #7 tab PRN Reason: Chest Pain Spironolactone [Aldactone] 25 mg PO DAILY #30 tab Continue Multivitamins, Thera [Multivitamin (formulary)] 1 tab PO DAILY Cholecalciferol [Vitamin D3] 1,000 unit PO DAILY Vitamin B Complex 1 cap PO DAILY Ascorbic Acid [Vitamin C] 1,000 mg PO DAILY Discharge Medication List Ascorbic Acid [Vitamin C] 1,000 mg PO DAILY 10/23/17 [History] Cholecalciferol [Vitamin D3] 1,000 unit PO DAILY 10/23/17 [History] Multivitamins, Thera [Multivitamin (formulary)] 1 tab PO DAILY 10/23/17 [History ] Vitamin B Complex 1 cap PO DAILY 10/23/17 [History] Albuterol Inhaler [Ventolin Hfa Inhaler] 1 - 2 puff INHALATION Q6HR PRN #1 inhaler 10/29/17 [Rx] Aspirin 81 mg PO DAILY #30 tab 10/29/17 [Rx] Atorvastatin [Lipitor] 40 mg PO DAILY #30 tab 10/29/17 [Rx] Budesonide-Formot 160-4.5 Mcg [Symbicort 160-4.5 Mcg Inhaler] 2 puff INHALATION RT-BID #1 inhaler 10/29/17 [Rx] Carvedilol [Coreg] 6.25 mg PO BID-W/MEALS #60 tab 10/29/17 [Rx] Cephalexin [Keflex] 500 mg PO BID #6 cap 10/29/17 [Rx] Furosemide [Lasix] 20 mg PO BID #60 tab 10/29/17 [Rx] Lisinopril [Zestril] 5 mg PO BID #30 tab 10/29/17 [Rx] Nitroglycerin Sl Tabs [Nitrostat] 0.4 mg SUBLINGUAL Q5M PRN #7 tab 10/29/17 [Rx] Spironolactone [Aldactone] 25 mg PO DAILY #30 tab 10/29/17 [Rx] Follow up Appointment(s)/Referral(s): Misha Davison MD [STAFF PHYSICIAN] - 11/25/17 2:45 pm (Saturday) Cele Bass MD [STAFF PHYSICIAN] - 11/04/17 3:30 pm (saturday) Nathaniel Marks MD [STAFF PHYSICIAN] - 1 Week Sarah Motley NPC [REFERRING] - 11/20/17 1:30 pm (Saturday Please arrive 15mins early to fill out paperwork) Alessio Perez MD [STAFF PHYSICIAN] - 2 Weeks Ambulatory/Diagnostic Orders: Basic Metabolic Panel [LAB.AMB] Location: Determined By Patient Patient Instructions/Handouts: *Surgery [facility] - After Heart Catheterization - Med Spa Manager Instructions, Left Heart Catheterization (DC) Activity/Diet/Wound Care/Special Instructions: heart health, 4 gram sodium diet activity as tolerated Discharge Disposition: HOME WITH HOME HEALTH SERVICES
--- NOTE | 2017-10-29 12:08 | PN ---
PROGRESS NOTE Mrs. Sierra is a 72-year-old female who presented with evidence of progressive dyspnea, had evidence of cardiomyopathy, non ST-segment elevation myocardial infarction. Her cardiac catheterization was consistent with severe coronary artery disease and her ELLEN showed severe cardiomyopathy with severe mitral regurgitation. She was felt to be high risk for any surgical intervention at this time because of her lung status. She is feeling better today. Her breathing is stable. She continues to be hypoxemic on room air. She denies any dizziness, palpitation. She denies any nausea. She denies any cough. She continues to be at this time on aspirin once a day, Lipitor 40 mg daily, Coreg 6.5 mg twice a day, Lasix 20 mg twice a day, lisinopril 5 mg twice a day and spironolactone 25 mg daily. PHYSICAL EXAMINATION: Blood pressure 118/56 with a heart in the 70s. LUNGS: With decreased air exchange. No wheezes. HEART: Regular rate and rhythm, S1, S2. No S3 with a holosystolic murmur at the apex. No diastolic murmur. No rub. ABDOMEN: Soft, nontender. EXTREMITIES: No edema. IMPRESSION: 1. Severe coronary artery disease. 2. Severe cardiomyopathy with severe mitral regurgitation. 3. Severe chronic obstructive lung disease. 4. Constipation, resolved. 5. History of chronic tobacco use. RECOMMENDATION: Patient should be able to be discharged home today and followed as an outpatient to optimize her lung status to see if she becomes a candidate for surgical intervention. MMODL / IJN: [id number] /
--- NOTE | 2017-10-29 12:21 | P.PN ---
Subjective Progress Note Date: 10/29/17 Principal diagnosis: Acute non-ST segment elevation myocardial infarction. The patient was seen again today 10/29/2017 in follow-up on the selective care unit. She is currently awake and alert in no acute distress. She is felt to be not a surgical candidate from the pulmonary standpoint. She denies any worsening shortness of breath, cough or congestion. No chest pain, palpitations lightheadedness or dizziness. Her issues with constipation and been resolved. She is anxious to go home. Objective - Vital Signs Vital signs: Vital Signs Temp 96.4 F L 10/29/17 08:00 Pulse 70 10/29/17 08:00 Resp 18 10/29/17 08:00 BP 118/56 10/29/17 08:00 Pulse Ox 94 L 10/29/17 08:07 Intake & Output 10/28/17 10/29/17 10/29/17 18:59 06:59 18:59 Intake Total 720 480 120 Output Total 1350 1200 300 Balance -630 -720 -180 Weight 66 kg 66 kg Intake: Oral 720 480 120 Output: Urine 1350 1200 300 Other: Voiding Method Bedside Commode Bedside Commode # Voids 400 3 1 # Bowel Movements 0 1 - Exam GENERAL EXAM: Alert, active, comfortable in no apparent distress. HEAD: Normocephalic. EYES: Normal reaction of pupils, equal size. NOSE: Clear with pink turbinates. THROAT: No erythema or exudates. NECK: No masses, no JVD. CHEST: No chest wall deformity. LUNGS: Equal air entry with faint end expiratory wheeze, crackles in posterior bases. Diminished throughout. CVS: S1 and S2 normal with no audible murmur, regular rhythm. ABDOMEN: No hepatosplenomegaly, normal bowel sounds, no guarding or rigidity. SPINE: No scoliosis or deformity SKIN: No rashes CENTRAL NERVOUS SYSTEM: No focal deficits, tone is normal in all 4 extremities. EXTREMITIES: There is no peripheral edema. No clubbing, no cyanosis. Peripheral pulses are intact. - Labs CBC & Chem 7: 10/29/17 05:40 10/29/17 05:40 Labs: Abnormal Lab Results - Last 24 Hours (Table) 10/29/17 10/29/17 Range/Units 05:40 05:40 RBC 3.77 L (3.80-5.40) m/uL MCHC 30.8 L (31.0-37.0) g/dL RDW 15.6 H (11.5-15.5) % Chloride 97 L (98-107) mmol/L Carbon Dioxide 34 H (22-30) mmol/L BUN 20 H (7-17) mg/dL Glucose 106 H (74-99) mg/dL Assessment and Plan Assessment: 1 preoperative pulmonary evaluation for possible cardiac surgery. The patient comes in with an acute non-ST segment elevation myocardial infarction and furthermore the cardiac catheterization shows extensive coronary artery disease and severe mitral regurgitation. She has impaired LV function with ejection fraction of 20%, in addition to moderate to severe MR based on ELLEN. The patient has also carotid artery stenosis involving the right coronary artery measuring somewhere between 50-59% and the patient also has COPD which is severe and a preop spirometry showed an FEV1 of 33%. 2 multivessel coronary artery disease 3 acute non-ST segment patient myocardial infarction 4 new onset constipation and obviously this is a recent change in bowel habits which raises concerns to hours GI malignancies 5 poor medical follow-up and compliance over the years as the patient has not seen any physician for more than 10 years and she does not seem to be a good candidate for subsequent follow-ups as the patient clearly states that she is very nervous from physicians and medical care in general and she may not undergo the appropriate follow-ups needed for medical care 6 smoker 7 COPD, based on FEV1 is nor that of 33% on bedside spirometry. 8 constipation with negative CAT scan of the abdomen and pelvis and that is no evidence of any bowel obstruction. 9 elevated TSH probably an early hypothyroidism 10 breast cancer and a previous right mastectomy and previous radiation therapy. 11 right internal carotid artery disease estimated to be between 50-69% Recommendation: The patient was seen and evaluated by Dr. Pacheco. She is cleared for discharge from the pulmonary standpoint. She is again highly encouraged to follow-up in our office. We can perform full pulmonary function testing to evaluate the severity of her COPD. Bedside saraht revealed FEV1 value of 33% of predicted. She'll be discharged on Symbicort and albuterol. Assess for home oxygen. We could make further recommendations based on further evaluation. I, the cosigning physician, performed a history & physical examination of the patient. Lungs sounds with faint end expiratory wheeze, crackles in the posterior bases. Diminished throughout. Maintaining good O2 saturations in the 90s on 2 L/m per nasal cannula. I discussed the assessment and plan of care with my nurse practitioner, Lizette Denson. I attest to the above note as dictated by her.
[2017-10-29 14:37] VITALS: BP 115/58; PULSE 65; TEMP 97
--- NOTE | 2017-10-30 09:36 | P.VSCSTY ---
Greater Saphenous Vein Mapping This is bilateral lower extremity greater saphenous vein mapping. Date of service 10/23/2017 Vein quality and ultrasound appearance no intraluminal thrombus or significant wall changes are seen.. Vein size groin right 10.3 x 7.8 groin left 7.0 x 6.0 High thigh right 6.6 x 5.8 high thigh left 4.2 x 3.2 Mid thigh right 5.2 x 4.5 mid thigh left 4.4 x 4.1 Above-knee right 2.6 x 2.2 above-knee left 2.8 x 2.5 Below knee right 4.7 x 2.4 below-knee left 1.7 x 2.1 Mid calf right 2.0 x 1.7 mid calf left 2.9 x 2.6 Ankle right 2.6 x 1.7 ankle left 3.2 x 2.1 Impression usable bilateral greater saphenous veins. Lower legs get a bit small bilaterally..
--- NOTE | 2017-10-30 09:38 | P.ARTDOP ---
Arterial Doppler LOWER EXTREMITY ARTERIAL DOPPLER: DATE OF SERVICE: 10/25/2017 Reason for study: Pre-CABG. Doppler waveforms: Atypical bilaterally throughout. Pulse volume recording: []. Pressure gradients: Above the knee bilaterally. Ankle-brachial indices: 0.55 on the right and 0.57 on the left. Toe pressures: [] on the right, [] on the left Impression: Moderate bilateral fem-pop disease..
--- NOTE | 2017-10-30 13:54 | CDI ---
Last Revision, June 2017 Documentation Clarification Form Date: 10/30/17 From: Nallely Abner Jaye Carbajal, Floor Covering Layer between 8:30 am & 5 pm Michael Admit Date: 10/23/2017 5:37:00 PM Patient Name: Alan Sierra Visit Number: [id number] Discharge Date: 10/29/17 ATTENTION: The Clinical Documentation Specialists (CDI) and [facility] Coding Staff appreciate your assistance in clarifying documentation. Please respond to the clarification below the line at the bottom and electronically sign. The CDI & [facility] Coding staff will review the response and follow-up if needed. Please note: Queries are made part of the Legal Health Record. If you have any questions, please contact the author of this message via ITS. Dr. Ita Mojica PAD is documented in the cath report. History/Risk Factors: AMI, COPD, HTN, ischemic cardiomyopathy Lower extremity arterial doppler: moderate bilateral fem-pop disease In your professional opinion, can you identify the cause of the PAD, type and location further specified? Due to : Atherosclerosis Diabetic angiopathy Other (specify) Can you please clarify the vessel and laterality if known? In your professional opinion, in order to capture the severity of condition, can you please clarify if the above clinical indicators and treatment signify if there were any associated conditions? Gangrene Intermittent Claudication Rest Pain Ulceration No related conditions Other, please specify Unable to determine Please continue to document in your progress notes and discharge summary in order to capture severity of illness and risk of mortality. Include clinical findings that support your diagnosis. I will amend discharge summary to include PAD but I cannot comment on the location as that information was not available at time of discharge. [facility]
== END 2017-10-29 14:31 | disposition home health service (06) | DRG 280 ==
LOC: EC 13:33 → 6SEL 17:37
PROVIDERS: ADMIT Internal Medicine; ATTEND Internal Medicine
PROC: B211YZZ Fluoroscopy of Multiple Coronary Arteries using Other Contrast (ICD-10-PCS; 2017-10-24)
PROC: B215YZZ Fluoroscopy of Left Heart using Other Contrast (ICD-10-PCS; 2017-10-24)
PROC: 4A023N7 Measurement of Cardiac Sampling and Pressure, Left Heart, Percutaneous Approach (ICD-10-PCS; principal; 2017-10-24 09:22)
PROC: B24BZZ4 Ultrasonography of Heart with Aorta, Transesophageal (ICD-10-PCS; 2017-10-25)
PROC: B44HZZZ Ultrasonography of Bilateral Lower Extremity Arteries (ICD-10-PCS; 2017-10-25)
DX: I21.4 Non-ST elevation (NSTEMI) myocardial infarction (principal); I50.21 Acute systolic (congestive) heart failure; D69.6 Thrombocytopenia, unspecified; R18.8 Other ascites; I65.21 Occlusion and stenosis of right carotid artery; M41.9 Scoliosis, unspecified; N39.0 Urinary tract infection, site not specified; J98.11 Atelectasis; I34.0 Nonrheumatic mitral (valve) insufficiency; J44.9 Chronic obstructive pulmonary disease, unspecified; I25.5 Ischemic cardiomyopathy; I25.10 Atherosclerotic heart disease of native coronary artery without angina pectoris; I70.0 Atherosclerosis of aorta; E78.5 Hyperlipidemia, unspecified; K59.09 Other constipation; I16.0 Hypertensive urgency; E55.9 Vitamin D deficiency, unspecified; E03.9 Hypothyroidism, unspecified; B96.20 Unspecified Escherichia coli [E. coli] as the cause of diseases classified elsewhere; I70.209 Unspecified atherosclerosis of native arteries of extremities, unspecified extremity; R09.02 Hypoxemia; R73.03 Prediabetes; K08.89 Other specified disorders of teeth and supporting structures; F17.211 Nicotine dependence, cigarettes, in remission; Z79.899 Other long term (current) drug therapy; Z71.6 Tobacco abuse counseling; Z91.19 Patient's noncompliance with other medical treatment and regimen; Z90.11 Acquired absence of right breast and nipple; Z85.3 Personal history of malignant neoplasm of breast; Z92.21 Personal history of antineoplastic chemotherapy; Z92.3 Personal history of irradiation; Z88.5 Allergy status to narcotic agent; Z82.49 Family history of ischemic heart disease and other diseases of the circulatory system; Z83.3 Family history of diabetes mellitus
CPT/HCPCS: 36415; 70355; 71046; 71260; 74019; 74177; 80048; 80053; 80061; 80074; 81001; 83036; 83690; 83735; 83880; 84439; 84443; 84484; 85025; 85610; 85730; 87070; 87077; 87086; 87186; 93005; 93306; 93312; 93320; 93325; 93458; 93880; 93923; 93970; 94150; 94640; 94760; 96365; 96366; 96376; 99291

== ENCOUNTER 2017-12-17 14:35 | Inpatient (IN) | payer MEDICARE ==
--- NOTE | 2017-12-17 15:00 | ED ---
Recheck HPI - General Chief Complaint: Recheck/Abnormal Lab/Rx Stated Complaint: Lab/Dr Sent Time Seen by Provider: 12/17/17 14:49 Source: patient, RN notes reviewed Mode of arrival: ambulatory Limitations: no limitations - History of Present Illness Initial Comments: This is a 72-year-old female who was instructed to come to the emergency department for evaluation of lab work that was done this morning. The lab work apparently showed a potassium level of 7.3. Patient was being worked up for low potassium and chronic leg muscle pain. She states she's had muscle pain especially in her cast for quite some time. There were checking her electrolytes to see if that was a cause. She denies any fevers chills nausea vomiting sweats palpitations chest pain abdominal pain or any other symptoms at this time no other modifying factors. MD Complaint: abnormal lab - Related Data Home Medications Medication Instructions Recorded Confirmed Ascorbic Acid [Vitamin C] 1,000 mg PO DAILY 10/23/17 12/17/17 Cholecalciferol [Vitamin D3] 1,000 unit PO DAILY 10/23/17 12/17/17 Multivitamins, Thera [Multivitamin 1 tab PO DAILY 10/23/17 12/17/17 (formulary)] Vitamin B Complex 1 cap PO DAILY 10/23/17 12/17/17 Albuterol Inhaler [Ventolin Hfa 1 - 2 puff INHALATION RT-Q6H PRN 12/17/17 Inhaler] Carvedilol [Coreg] 12.5 mg PO BID 12/17/17 12/17/17 Previous Rx's Medication Instructions Recorded Aspirin 81 mg PO DAILY #30 tab 10/29/17 Atorvastatin [Lipitor] 40 mg PO DAILY #30 tab 10/29/17 Budesonide-Formot 160-4.5 Mcg 2 puff INHALATION RT-BID #1 inhaler 10/29/17 [Symbicort 160-4.5 Mcg Inhaler] Furosemide [Lasix] 20 mg PO BID #60 tab 10/29/17 Lisinopril [Zestril] 5 mg PO BID #30 tab 10/29/17 Nitroglycerin Sl Tabs [Nitrostat] 0.4 mg SUBLINGUAL Q5M PRN #7 tab 10/29/17 Spironolactone [Aldactone] 25 mg PO DAILY #30 tab 10/29/17 Allergies Allergy/AdvReac Type Severity Reaction Status Date / Time morphine AdvReac Hallucinati Verified 12/17/17 15:44 ons Review of Systems ROS Statement: Those systems with pertinent positive or pertinent negative responses have been documented in the HPI. ROS Other: All systems not noted in ROS Statement are negative. Past Medical History Past Medical History: Cancer, COPD, Thyroid Disorder Additional Past Medical History / Comment(s): Breast cancer with a previous right mastectomy followed by radiation therapy, COPD, coronary artery disease with multivessel involvement, severe mitral regurgitation as evident on the echocardiogram and a cardiac catheterization, scoliosis of the spine, hypothyroidism, vitamin D deficiency. History of Any Multi-Drug Resistant Organisms: None Reported Past Surgical History: Breast Surgery Additional Past Surgical History / Comment(s): Right mastectomy, cardiac catheterization Past Psychological History: No Psychological Hx Reported Smoking Status: Heavy tobacco smoker Past Alcohol Use History: Daily Past Drug Use History: None Reported - Past Family History Father Family Medical History: Coronary Artery Disease (CAD), CVA/TIA, Hypertension, Myocardial Infarction ([place]) Mother Family Medical History: Coronary Artery Disease (CAD), CVA/TIA, Diabetes Mellitus, Hypertension, Myocardial Infarction ([place]) Additional Family Medical History / Comment(s): pace maker General Exam - General Exam Comments Initial Comments: This is a well-developed well-nourished awake alert oriented 3 female Limitations: no limitations General appearance: alert, in no apparent distress Head exam: Present: atraumatic, normocephalic, normal inspection Eye exam: Present: normal appearance, PERRL, EOMI. Absent: scleral icterus, conjunctival injection, periorbital swelling ENT exam: Present: mucous membranes dry, other (Poor dentition) Neck exam: Present: normal inspection. Absent: tenderness, meningismus, lymphadenopathy Respiratory exam: Present: normal lung sounds bilaterally. Absent: respiratory distress, wheezes, rales, rhonchi, stridor Cardiovascular Exam: Present: regular rate, normal rhythm, normal heart sounds. Absent: systolic murmur, diastolic murmur, rubs, gallop, clicks GI/Abdominal exam: Present: soft, normal bowel sounds. Absent: distended, tenderness, guarding, rebound, rigid Extremities exam: Present: normal inspection, full ROM, tenderness (Examination right lower extremity demonstrates evidence of severe Disease with Some Localized Tenderness to the Posterior Medial Calf No Palpable Cords the Patient States He Isn't Been There for a Long Time.), normal capillary refill. Absent: pedal edema, joint swelling, calf tenderness Back exam: Present: normal inspection Neurological exam: Present: alert, oriented X3, CN II-XII intact Psychiatric exam: Present: normal affect, normal mood Skin exam: Present: warm, dry, intact, normal color. Absent: rash Course Vital Signs 12/17/17 12/17/17 12/17/17 14:45 15:38 15:55 Temperature 97.1 F L Pulse Rate 64 75 66 Respiratory 16 18 Rate Blood Pressure 95/46 133/65 O2 Sat by Pulse 95 99 Oximetry 12/17/17 16:00 Temperature Pulse Rate 64 Respiratory Rate Blood Pressure O2 Sat by Pulse Oximetry - Reevaluation(s) Reevaluation #1: 12/17/17 15:58 Reevaluation patient reveals that she remains asymptomatic. Potassium level did come back at 7.1 with evidence of renal insufficiency. Reevaluation #2: 12/17/17 15:58 I did discuss the case with Dr. Perez who did refer the patient to the emergency department. The patient will be admitted the patient is well-known by Dr. Mas. I did discuss case with Dr. Da Silva Medical Decision Making - Lab Data Result diagrams: 12/17/17 15:10 Lab Results 12/17/17 Range/Units 15:10 Sodium 135 L (137-145) mmol/L Potassium 7.1 H* (3.5-5.1) mmol/L Chloride 107 (98-107) mmol/L Carbon Dioxide 14 L (22-30) mmol/L Anion Gap 14 mmol/L BUN 104 H* (7-17) mg/dL Creatinine 2.10 H (0.52-1.04) mg/dL Est GFR (CKD-EPI)AfAm 27 (>60 ml/min/1.73 sqM) Est GFR (CKD-EPI)NonAf 23 (>60 ml/min/1.73 sqM) Glucose 145 H (74-99) mg/dL Calcium 9.2 (8.4-10.2) mg/dL Magnesium 2.4 H (1.6-2.3) mg/dL Total Bilirubin 0.4 (0.2-1.3) mg/dL AST 26 (14-36) U/L ALT 44 (9-52) U/L Alkaline Phosphatase 59 (38-126) U/L Total Protein 7.0 (6.3-8.2) g/dL Albumin 3.9 (3.5-5.0) g/dL - EKG Data -: EKG Interpreted by Me EKG shows normal: sinus rhythm (Sinus bradycardia with evidence of a marked sinus arrhythmia rate was 56 CO interval 164 QRS 90 QT since QTC 370/364) Critical Care Time Critical Care Time: Yes Critical Care Time: 32 minutes of critical care time which includes initial presentation with history physical labs several reevaluation the patient. Discussion with multiple physicians. Review of old charting that was available. Discussion with the admitting physician admission orders and documentation of the above. Disposition Clinical Impression: Acute hyperkalemia, Renal insufficiency syndrome, Hypotensive episode Disposition: ADMITTED IP TO THIS [facility] Condition: Stable Referrals: Alessio Perez MD [Primary Care Provider] - 1-2 days
[2017-12-17] MEDS ORDERED: SODIUM CHLORIDE 0.9% 1,000 ML IV STA ×2 (15:01→18:18)
[2017-12-17] MEDS ORDERED: SODIUM CHLORIDE 0.9% 500 ML IV STA (15:01)
[2017-12-17 15:28] LABS: Albumin 3.9 g/dL (3.5-5.0); Calcium 9.2 mg/dL (8.4-10.2); Magnesium 2.4 mg/dL (1.6-2.3); Total Bilirubin 0.4 mg/dL (0.2-1.3)
[2017-12-17 15:29] LABS: Potassium 7.1 mmol/L (3.5-5.1)
[2017-12-17] MEDS ORDERED: FUROSEMIDE 10 MG/ML 4 ML VIAL IV STA (15:42)
[2017-12-17] MEDS ORDERED: ALBUTEROL NEBULIZED 2.5 MG/3 ML INHALATION STA (15:42)
[2017-12-17] MEDS ORDERED: SODIUM BICARB 8.4% 50 ML SYR (1 MEQ/ML) IV STA (15:55)
[2017-12-17] MEDS ORDERED: INSULIN REGULAR 100 UNIT/ML VIAL IV ONE (15:57)
[2017-12-17] MEDS ORDERED: DEXTROSE 50%-WATER 50 ML SYRINGE IVP STA (15:57)
[2017-12-17] MEDS ORDERED: ACETAMINOPHEN TAB 325 MG TAB PO PRN (16:01)
[2017-12-17] MEDS ORDERED: NALOXONE 0.4 MG/ML 1 ML VIAL IV PRN (16:01)
[2017-12-17] MEDS ORDERED: SODIUM POLYSTYRENE SULFONATE 15 GM/60 ML BOTTLE PO ONE (16:05)
[2017-12-17] MEDS ORDERED: PROCHLORPERAZINE 5 MG TAB PO PRN (17:14)
[2017-12-17] MEDS ORDERED: LORazepam 2 MG/ML INJ IV PRN (17:14)
[2017-12-17] MEDS ORDERED: BISACODYL 5 MG TABLET.DR PO PRN (17:14)
[2017-12-17] MEDS ORDERED: MELATONIN 3 MG TABLET PO PRN (17:14)
[2017-12-17] MEDS ORDERED: traMADol 50 MG TAB PO PRN (17:14)
[2017-12-17] MEDS ORDERED: ALBUTEROL NEBULIZED 2.5 MG/3 ML INHALATION PRN ×2 (17:16→17:49)
[2017-12-17] MEDS ORDERED: NITROGLYCERIN SL TABS 0.4 MG TAB SUBLINGUAL PRN (17:16)
--- NOTE | 2017-12-17 17:31 | US ---
EXAMINATION TYPE: US venous doppler duplex LE DATE OF EXAM: 12/17/2017 5:25 PM COMPARISON: CLINICAL HISTORY: Pain. Patient states having bilateral leg pain. No swelling. No redness. Patient states not being on blood thinners. SIDE PERFORMED: Bilateral TECHNIQUE: The lower extremity deep venous system is examined utilizing real time linear array sonog candace with graded compression, doppler sonography and color-flow sonography. VESSELS IMAGED: External Iliac Vein (EIV) Common Femoral Vein Deep Femoral Vein Greater Saphenous Vein * Femoral Vein Popliteal Vein Small Saphenous Vein * Proximal Calf Veins (* superficial vessels) Right Leg: Negative for DVT Left Leg: Negative for DVT IMPRESSION: Negative exam. No evidence of deep venous thrombosis in both legs.
--- NOTE | 2017-12-17 17:56 | P.HPIM ---
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 Perez for abnormal labs. Patient has been experiencing severe leg cramping for the last 1 month. She was being seen in the pulmonary office today for follow-up mentioned her leg cramping and they ordered laboratory analysis. On arrival to the ER she was slightly hypotensive with a blood pressure of 95/46. Laboratory analysis confirmed a potassium of 7.1. Non-anion gap metabolic acidosis with a carbon dioxide of 14 and acute kidney injury with a BUN of 104 and creatinine 2.1. She has also recently had outpatient laboratory completed earlier this afternoon showed a white blood cell count of 8.7, hemoglobin 14.3 hematocrit 44.4, platelets 113. EEG was reviewed which showed sinus bradycardia with no significant ST-T wave changes. She was given a dose of insulin, glucose, albuterol, Lasix, Kayexalate, and bicarb. She was asymptomatic. Arrangements were made for admission to [facility] care. Patient seen and examined at bedside in the ER. She states that for the last 1 month she has been experiencing leg cramping. It occurs at night and when she is sitting still. It never occurs when she is up and moving around. She states that sometimes her legs feel cold and numb but this is intermittent. She denies any overt pain in her legs (other than knee pain from arthritis). She has not had any lower extremity weakness or falls. She has not been taking any for the thing for this other than potassium. She states that she went and saw her nurse practitioner who placed her on potassium. She reports that she has not had any blood work drawn that she left the hospital. She reports that she has asked her nurse practitioner about this but they reported no blood work was needed. She reports that she is getting lightheaded and dizzy when she is up and walking and sometimes feels though she could faint and pass out. She has not had any palpitations, shortness of breath, or chest pain. Her wheezing has resolved. She is no longer coughing. She is actually feeling much better overall than when she has been to the hospital previously. She does fatigue easily. Her new weight is approximately 126 pounds since leaving the hospital. She reports that her appetite has been normal. She reports that she's been taking all medications as prescribed and has not been missing any doses. She continues to have left lower quadrant pain and blood in her stool. She has been following with Dr. Davison has an outpatient colonoscopy set up for next Saturday or Saturday. Review of Systems Positives: + Fatigue, + leg cramping, + legs feeling cold, + leg tingling Pertinent positives and negatives as discussed in HPI, a complete review of systems was performed and all other systems are negative. Past Medical History Past Medical History: Cancer, COPD, Thyroid Disorder Additional Past Medical History / Comment(s): Breast cancer with a previous right mastectomy followed by radiation therapy and chemotherapy, COPD, coronary artery disease with multivessel involvement, severe mitral regurgitation as evident on the echocardiogram and a cardiac catheterization, scoliosis of the spine, hypothyroidism, vitamin D deficiency. Carotid arterial disease, prediabetes History of Any Multi-Drug Resistant Organisms: None Reported Past Surgical History: Breast Surgery Additional Past Surgical History / Comment(s): Right mastectomy, cardiac catheterization Past Psychological History: No Psychological Hx Reported Smoking Status: Former smoker Past Alcohol Use History: Occasional Past Drug Use History: None Reported Additional History: Lives with her and son, and granddaughters. Independent ADLs. Has no assistive devices at home but would like a walker or cane. - Past Family History Father Family Medical History: Coronary Artery Disease (CAD), CVA/TIA, Hypertension, Myocardial Infarction ([place]) Mother Family Medical History: Coronary Artery Disease (CAD), CVA/TIA, Diabetes Mellitus, Hypertension, Myocardial Infarction ([place]) Additional Family Medical History / Comment(s): pace maker Medications and Allergies Home Medications Medication Instructions Recorded Confirmed Type Ascorbic Acid [Vitamin C] 1,000 mg PO DAILY 10/23/17 12/17/17 History Cholecalciferol [Vitamin D3] 1,000 unit PO DAILY 10/23/17 12/17/17 History Multivitamins, Thera [Multivitamin 1 tab PO DAILY 10/23/17 12/17/17 History (formulary)] Vitamin B Complex 1 cap PO DAILY 10/23/17 12/17/17 History Aspirin 81 mg PO DAILY #30 tab 10/29/17 12/17/17 Rx Atorvastatin [Lipitor] 40 mg PO DAILY #30 tab 10/29/17 12/17/17 Rx Budesonide-Formot 160-4.5 Mcg 2 puff INHALATION RT-BID #1 inhaler 10/29/1712/17 Rx [Symbicort 160-4.5 Mcg Inhaler] Furosemide [Lasix] 20 mg PO BID #60 tab 10/29/17 12/17/17 Rx Lisinopril [Zestril] 5 mg PO BID #30 tab 10/29/17 12/17/17 Rx Nitroglycerin Sl Tabs [Nitrostat] 0.4 mg SUBLINGUAL Q5M PRN #7 tab 10/29/1706/24 Rx Spironolactone [Aldactone] 25 mg PO DAILY #30 tab 10/29/17 12/17/17 Rx Albuterol Inhaler [Ventolin Hfa 1 - 2 puff INHALATION RT-Q6H PRN 12/17/17 History Inhaler] Carvedilol [Coreg] 12.5 mg PO BID 12/17/17 12/17/17 History Allergies Allergy/AdvReac Type Severity Reaction Status Date / Time morphine AdvReac Hallucinati Verified 12/17/17 15:44 ons Physical Exam Osteopathic Statement: *. No significant issues noted on an osteopathic structural exam other than those noted in the History and Physical/Consult. Vitals: Vital Signs Temp Pulse Resp BP Pulse Ox 12/17/17 17:01 97.0 F L 84 18 99 12/17/17 16:00 64 12/17/17 15:55 66 12/17/17 15:38 75 18 133/65 99 12/17/17 14:45 97.1 F L 64 16 95/46 95 Intake and Output 12/17/17 12/17/17 12/17/17 06:59 14:59 22:59 Other: Weight 57.153 kg General: non toxic, no distress, appears at stated age, underweight, appears older than stated age Derm: no unusual rashes/lesions, multiple ecchymoses, warm, cool bilateral feet , dry Head: atraumatic, normocephalic, symmetric Eyes: EOMI, no lid lag, anicteric sclera, pupils equal round reactive to light ENT: Nose and ears atraumatic, no thrush, no pharyngeal erythema Neck: No thyromegaly, no cervical lymphadenopathy, trachea midline, supple Mouth: no lip lesion, mucus membranes dry Cardiovascular: S1S2 reg, no murmur, non palpable posterior tibial pulse bilateral, diminished dorsalis pedis b/l, no edema, capillary refill less than 2 seconds Lungs: bs b/l no wheezing, no rhonchi, no rales , no accessory muscle use Abdominal: soft, +tender to palpation RLQ, no guarding, no appreciable organomegaly, normal bowel sounds Ext: no gross muscle atrophy, muscle strength 5 out of 5 in all 4 extremities grossly, no contractures, Neuro: CN II-XI grossly intact, light touch intact all 4 extremities, finger to nose within normal limits, Psych: Alert, oriented, appropriate affect Results CBC & Chem 7: 12/17/17 15:10 Labs: Abnormal Lab Results - Last 24 Hours (Table) 12/17/17 Range/Units 15:10 Sodium 135 L (137-145) mmol/L Potassium 7.1 H* (3.5-5.1) mmol/L Carbon Dioxide 14 L (22-30) mmol/L BUN 104 H* (7-17) mg/dL Creatinine 2.10 H (0.52-1.04) mg/dL Glucose 145 H (74-99) mg/dL Magnesium 2.4 H (1.6-2.3) mg/dL Comments: CBC reviewed from earlier in the day as per HPI EKG is reviewed by myself reveals sinus bradycardia at a rate of [address]-T wave changes., Normal axis, normal intervals Thrombosis Risk Factor Assmnt - DVT/VTE Prophylaxis DVT/VTE Prophylaxis: Pharmacologic Prophylaxis ordered Assessment and Plan Assessment: Hyperkalemia with acute kidney injury and non-anion gap metabolic acidosis -High risk factors include ischemic systolic cardiomyopathy -Received temporizing procedures in the ER -IV fluids with D5W with 3 Amps of bicarbonate at 75 mL an hour -Hold on supplemental potassium, Aldactone, Lasix, and lisinopril -Follow repeat electrolytes -Telemetry monitoring and -Received Kayexalate in the ER awaiting bowel movement -Discussed with Dr. Lafleur of nephrology -Check urinalysis and renal ultrasound -Strict I's and O's Leg cramping -Suspect secondary to restless leg syndrome but could also be secondary to claudication, will check LOLITA -Suggested further outpatient follow-up for definitive diagnosis -Inpatient unstable condition would not want to start new medication for this condition Chronic ischemic systolic cardiomyopathy, currently compensated with ejection fraction 20-25% -Diuretics and AMANDA inhibitor on hold secondary to above -Continue Coreg and follow blood pressures closely -Strict I's and O's -Low threshold to consult cardiology if develops any signs of arrhythmia already compensated congestive heart failure -Has been following with Dr. Marks as an outpatient but currently not considered a candidate for cardiac bypass surgery Severe COPD Gold stage 3 with FEV1 of 33% -Continue albuterol and Symbicort -Pulmonary recommendations Chronic hypoxic respiratory failure -Patient uses 2 L via nasal cannula at night this will continue during hospitalization Dyslipidemia -Continue statin therapy Hypertension, currently controlled -AMANDA inhibitor and diuretics on hold secondary to hyperkalemia and a KI, continue Coreg, follow blood pressures closely Subclinical hypothyroidism in October -Check TSH and free T4 Patient will be admitted as inpatient within anticipated greater than 2 midnight stay. She will be receiving treatment for hyperkalemia, acute kidney injury, and non-anion gap metabolic acidosis. This will have to be done carefully with her chronic systolic cardiomyopathy and ejection fraction 20-25% . Case was discussed with nephrology. Will proceed with q 4 hour monitoring of electrolytes overnight and sodium bicarb drip. Surrogate decision-maker: Jamarcus CODE STATUS:Full DVT prophylaxis: Lovenox Discussed with: Patient, family, ED physician Anticipated discharge: 3-[address]: home with home health A total of [65] minutes was spent on the care of this complex patient more than 50% of the time was spent in counseling and care coordination.
[2017-12-17 18:19] LABS: Glucose,Whole Blood 75 mg/dL (75-99)
[2017-12-17] MEDS: DEXTROSE 5% IN WATER 1,000 ML with SODIUM BICARB (1 MEQ/ML) 150 ML IV SCH (19:35)
[2017-12-17] MEDS ORDERED: ALBUTEROL NEBULIZED 2.5 MG/3 ML INHALATION SCH (20:00)
[2017-12-17 20:39] LABS: Potassium 5.9 mmol/L (3.5-5.1)
[2017-12-17 20:43] VITALS: BMI 20.9
[2017-12-17] MEDS: SYMBICORT 160-4.5 MCG INHALER INHALATION SCH (20:43)
[2017-12-17] MEDS: SODIUM POLYSTYRENE SULFONATE 15 GM/60 ML BOTTLE PO SCH (20:43)
--- NOTE | 2017-12-17 20:45 | US ---
EXAMINATION TYPE: US kidneys/renal and bladder DATE OF EXAM: 12/17/2017 COMPARISON: NONE CLINICAL HISTORY: CHESTER. CHESTER EXAM MEASUREMENTS: Right Kidney: 9.3 x 5.0 x 3.4 cm Left Kidney: 9.2 x 4.8 x 4.0 cm Right Kidney: Small amount of fluid seen medial. Left Kidney: No hydronephrosis or masses seen Bladder: Anechoic Bilateral Jets seen: Yes No nephrolithiasis is seen. No masses are identified. The urinary bladder is anechoic. Bilateral ureteral jets are seen. IMPRESSION: No evidence of renal mass or obstruction. Kidneys are relatively small consistent with some mild degr ee of atrophy.
[2017-12-17] MEDS: CARVEDILOL 12.5 MG TAB PO SCH (23:38)
[2017-12-18] MEDS ORDERED: FUROSEMIDE 10 MG/ML 4 ML VIAL IV SCH
[2017-12-18 00:40] LABS: Appearance,Urine Clear (Clear); Bilirubin,Urine Negative (Negative); Blood,Urine Negative (Negative); Color,Urine Colorless; Glucose,Urine (UA) Negative (Negative); Ketones,Urine Negative (Negative); Leukocyte Esterase,Urine Negative (Negative); Nitrite,Urine Negative (Negative); Protein,Urine Negative (Negative); Specific Gravity,Urine 1.006 (1.001-1.035); Urobilinogen,Urine <2.0 mg/dL (<2.0)
[2017-12-18] MEDS: SODIUM POLYSTYRENE SULFONATE 15 GM/60 ML BOTTLE PO SCH (03:13)
[2017-12-18] MEDS: CARVEDILOL 12.5 MG TAB PO SCH ×2 (06:32→17:20)
[2017-12-18 06:46] LABS: Potassium 4.4 mmol/L (3.5-5.1)
[2017-12-18 06:55] LABS: Anisocytosis Slight; HCT 36.3 % (34.0-46.0); MCH 30.5 pg (25.0-35.0); MCHC 33.2 g/dL (31.0-37.0); MCV 91.9 fL (80.0-100.0); Mean Platelet Volume 8.2; Platelet Count 111 k/uL (150-450); RBC 3.95 m/uL (3.80-5.40); RDW 16.8 % (11.5-15.5); WBC 7.9 k/uL (3.8-10.6)
[2017-12-18] MEDS: SYMBICORT 160-4.5 MCG INHALER INHALATION SCH ×2 (07:09→20:27)
[2017-12-18] MEDS: ENOXAPARIN 40 MG/0.4 ML SYRINGE SQ SCH (08:18)
[2017-12-18] MEDS: B COMPLEX-VIT C-VIT E-ZINC 1 EACH TAB PO SCH (08:18)
[2017-12-18] MEDS: ASPIRIN 81 MG PO SCH (08:18)
[2017-12-18] MEDS: ASCORBIC ACID 500 MG TAB PO SCH (08:18)
[2017-12-18] MEDS: ATORVASTATIN 40 MG TAB PO SCH (08:18)
[2017-12-18] MEDS: DEXTROSE 5% IN WATER 1,000 ML with SODIUM BICARB (1 MEQ/ML) 150 ML IV SCH (12:20)
--- NOTE | 2017-12-18 13:09 | P.CNPUL ---
History of Present Illness Consult date: 12/18/17 Reason for consult: other Chief complaint: Leg swelling, hyperkalemia, mild renal dysfunction History of present illness: Pulmonary consult dated 12/18/2017 This is a 72-year-old female who has been seen by my partner yesterday. The patient apparently was instructed to come to the emergency room after some blood work that was done in the morning revealed a potassium of 7.3. The patient was also found to have some rectal pain and swelling in the Dopplers of lower extremities were negative for DVT. In addition, the patient was found to have some mild renal dysfunction for those reasons, she was admitted to the hospital. She does have a history of underlying COPD. Her COPD was not active. My partners taken care of her for that. In addition to COPD, she has a history of hyperlipidemia hypertension and breast cancer with previous mastectomy. She's also had radiation to that area. She has severe mitral regurgitation by echocardiogram a cardiac catheterization and multivessel CAD. At one point she was considered to have bypass grafting with valvular repair. She was thought to be too sick. Dr. Perez my partner is working with her to see if she keeps he can improve her overall situation and make her a safer surgical candidate. Again, from a COPD standpoint, she is doing very well. She is currently on Symbicort and albuterol. Review of Systems A 12 point review of system is not too impressive. She is complaining of some leg pain and lower extremitie Dopplers were done. She denies any worsening or changes in her COPD. She was unaware of the elevated potassium and renal dysfunction. The rest of the 12 point review of system is unremarkable. Past Medical History Past Medical History: Cancer, COPD, Thyroid Disorder Additional Past Medical History / Comment(s): Breast cancer with a previous right mastectomy followed by radiation therapy and chemotherapy, COPD, coronary artery disease with multivessel involvement, severe mitral regurgitation as evident on the echocardiogram and a cardiac catheterization, scoliosis of the spine, hypothyroidism, vitamin D deficiency. Carotid arterial disease, prediabetes History of Any Multi-Drug Resistant Organisms: None Reported Past Surgical History: Breast Surgery Additional Past Surgical History / Comment(s): Right mastectomy, cardiac catheterization Past Anesthesia/Blood Transfusion Reactions: No Reported Reaction Past Psychological History: No Psychological Hx Reported Smoking Status: Former smoker Past Alcohol Use History: Occasional Past Drug Use History: None Reported - Past Family History Father Family Medical History: Coronary Artery Disease (CAD), CVA/TIA, Hypertension, Myocardial Infarction ([place]) Mother Family Medical History: Coronary Artery Disease (CAD), CVA/TIA, Diabetes Mellitus, Hypertension, Myocardial Infarction ([place]) Additional Family Medical History / Comment(s): pace maker Medications and Allergies Home Medications Medication Instructions Recorded Confirmed Type Ascorbic Acid [Vitamin C] 1,000 mg PO DAILY 10/23/17 12/17/17 History Cholecalciferol [Vitamin D3] 1,000 unit PO DAILY 10/23/17 12/17/17 History Multivitamins, Thera [Multivitamin 1 tab PO DAILY 10/23/17 12/17/17 History (formulary)] Vitamin B Complex 1 cap PO DAILY 10/23/17 12/17/17 History Aspirin 81 mg PO DAILY #30 tab 10/29/17 12/17/17 Rx Atorvastatin [Lipitor] 40 mg PO DAILY #30 tab 10/29/17 12/17/17 Rx Budesonide-Formot 160-4.5 Mcg 2 puff INHALATION RT-BID #1 inhaler 10/29/1712/17 Rx [Symbicort 160-4.5 Mcg Inhaler] Furosemide [Lasix] 20 mg PO BID #60 tab 10/29/17 12/17/17 Rx Lisinopril [Zestril] 5 mg PO BID #30 tab 10/29/17 12/17/17 Rx Nitroglycerin Sl Tabs [Nitrostat] 0.4 mg SUBLINGUAL Q5M PRN #7 tab 10/29/1706/24 Rx Spironolactone [Aldactone] 25 mg PO DAILY #30 tab 10/29/17 12/17/17 Rx Albuterol Inhaler [Ventolin Hfa 1 - 2 puff INHALATION RT-Q6H PRN 12/17/17 History Inhaler] Carvedilol [Coreg] 12.5 mg PO BID 12/17/17 12/17/17 History Allergies Allergy/AdvReac Type Severity Reaction Status Date / Time morphine AdvReac Hallucinati Verified 12/17/17 15:44 ons Physical Exam Osteopathic Statement: *. No significant issues noted on an osteopathic structural exam other than those noted in the History and Physical/Consult. Vitals: Vital Signs Temp Pulse Pulse Resp BP BP Pulse Ox 12/18/17 11:10 74 16 118/53 93 L 12/18/17 08:00 96.7 F L 72 16 94/49 93 L 12/18/17 03:45 97.7 F 83 18 117/62 94 L 12/18/17 00:00 98.1 F 74 18 123/63 100 12/17/17 18:48 89 16 104/53 99 12/17/17 18:22 97.4 F L 71 18 94/44 95 12/17/17 17:15 97.4 F L 79 18 117/58 99 12/17/17 17:01 97.0 F L 84 18 99 12/17/17 16:40 97.5 F L 61 18 104/55 96 12/17/17 16:00 64 12/17/17 15:55 66 12/17/17 15:38 75 18 133/65 99 12/17/17 14:45 97.1 F L 64 16 95/46 95 Intake and Output 12/17/17 12/18/17 12/18/17 22:59 06:59 14:59 Intake Total 150 125 Output Total 500 Balance 150 -500 125 Intake: IV 150 Dextrose 5% in Water 1, 150 000 ml @ 75 mls/hr IV . [id number] BETSY with Sodium Bicarb (1 Meq/ml) 150 ml Rx#:[id number] Oral 125 Output: Urine 500 Other: Voiding Method Toilet Toilet # Voids 1 1 1 # Bowel Movements 0 Weight 57.153 kg 59 kg No acute distress, oriented 3. HEENT examination is grossly unremarkable. Mucous membranes are moist. No oral lesions. Neck supple. Full range of motion. No adenopathy thyromegaly or neck vein distention. Cardiovascular examination reveals regular rhythm rate. S1-S2 normal. No S3 or S4. No discernible murmur noted. Lungs reveal clear breath sounds. Her sounds are equal bilaterally. No adventitious lung sounds including wheezes rhonchi or crackles. Abdomen soft bowel sounds are heard. No masses or tenderness. Extremities are intact. No cyanosis clubbing or edema. Skin is without rash or lesion. Neurologic examination is brief but nonfocal. Results - Laboratory Findings CBC and BMP: 12/18/17 05:57 06/13/18 05:57 Abnormal lab findings: Abnormal Labs 12/17/17 12/17/17 12/18/17 15:10 19:30 05:57 RDW 16.8 H Plt Count 111 L Sodium 135 L Potassium 7.1 H* 5.9 H Carbon Dioxide 14 L 20 L BUN 104 H* Creatinine 2.10 H Glucose 145 H Calcium Magnesium 2.4 H 12/18/17 05:57 RDW Plt Count Sodium Potassium Carbon Dioxide BUN 84 H* Creatinine 1.66 H Glucose Calcium 8.0 L Magnesium - Diagnostic Findings Chest x-ray: report reviewed, image reviewed U/S of Legs: report reviewed (Labs x-rays and medications reviewed. Dopplers of the lower extremities were negative.) Assessment and Plan Assessment: Assessment Hyperkalemia Acute kidney injury History of stable COPD Negative Dopplers of the lower extremities History of five-vessel CABG Valvular heart disease in the form of mitral regurgitation Hypertension Breast cancer with previous right mastectomy and radiation therapy Hypothyroidism Vitamin D deficiency Plan: Plan dated 12/18/2017 The patient's potassium is now in the normal range. Kidney functions improved. Dopplers of the lower extremities were negative. From the pulmonary standpoint, her COPD is at baseline. She is doing well from that standpoint. No additional recommendations are made. From the pulmonary standpoint, the patient could be discharged and she should follow-up with my partner in the office as scheduled. Time with Patient: Greater than 30
--- NOTE | 2017-12-18 15:15 | P.PN ---
Subjective Progress Note Date: 12/18/17 Principal diagnosis: Patient feels okay today still weak No chest pain no shortness of breath Constitutional: No acute distress, conversant, pleasant Eyes: Anicteric sclerae, moist conjunctiva, no lid-lag PERRLA ENMT: Cranial nerves grossly intact Neck: Supple, Lungs: Clear to auscultation Clear bl Cardiovascular: Heart regular in rate and rhythm, No murmurs, gallops, or rubs No peripheral edema Abdominal: Soft Nontender, no guarding, Skin: Normal temperature, tone, texture, turgor No induration No subcutaneous nodules No rash, lesions No ulcers Extremities: No digital cyanosis No clubbing Pedal pulses intact and symmetrical Radial pulses intact and symmetrical Normal gait and station No calf tenderness Psychiatric:Alert and oriented to person, place and time Appropriate affect Intact judgement Neuro: Generalized weakness Hyperkalemia with acute kidney injury and non-anion gap metabolic acidosis -High risk factors include ischemic systolic cardiomyopathy -Currently potassium improved and within normal limits we'll continue to monitor closely Nephrology following Leg cramping -Improving no evidence of any ischemia at this time n Chronic ischemic systolic cardiomyopathy, currently compensated with ejection fraction 20-25% No evidence of exacerbation monitor Severe COPD Gold stage 3 with FEV1 of 33% Stable no exacerbation -Continue albuterol and Symbicort -Pulmonary recommendations Chronic hypoxic respiratory failure -Patient uses 2 L via nasal cannula at night this will continue during hospitalization Does not appear to be in distress Dyslipidemia -Continue statin therapy Hypertension, currently controlled -AMANDA inhibitor and diuretics on hold secondary to hyperkalemia and a KI, continue Coreg, follow blood pressures closely Discharge hopefully in 2 days Objective - Vital Signs Vital signs: Vital Signs Temp 96.7 F L 12/18/17 08:00 Pulse 74 12/18/17 11:10 Resp 16 12/18/17 11:10 BP 118/53 12/18/17 11:10 Pulse Ox 93 L 12/18/17 11:10 Intake & Output 12/17/17 12/18/17 12/18/17 18:59 06:59 18:59 Intake Total 150 725 Output Total 500 300 Balance -350 425 Weight 57.153 kg 59 kg Intake: IV 150 600 Dextrose 5% in Water 1, 150 600 000 ml @ 75 mls/hr IV . [id number] BETSY with Sodium Bicarb (1 Meq/ml) 150 ml Rx#:[id number] Oral 125 Output: Urine 500 300 Other: Voiding Method Toilet Toilet # Voids 1 1 # Bowel Movements 0 - Labs CBC & Chem 7: 12/18/17 05:57 12/18/17 05:57 Labs: Abnormal Lab Results - Last 24 Hours (Table) 12/17/17 12/17/17 12/18/17 Range/Units 15:10 19:30 05:57 RDW 16.8 H (11.5-15.5) % Plt Count 111 L (150-450) k/uL Sodium 135 L (137-145) mmol/L Potassium 7.1 H* 5.9 H (3.5-5.1) mmol/L Carbon Dioxide 14 L 20 L (22-30) mmol/L BUN 104 H* (7-17) mg/dL Creatinine 2.10 H (0.52-1.04) mg/dL Glucose 145 H (74-99) mg/dL Calcium (8.4-10.2) mg/dL Magnesium 2.4 H (1.6-2.3) mg/dL 12/18/17 Range/Units 05:57 RDW (11.5-15.5) % Plt Count (150-450) k/uL Sodium (137-145) mmol/L Potassium (3.5-5.1) mmol/L Carbon Dioxide (22-30) mmol/L BUN 84 H* (7-17) mg/dL Creatinine 1.66 H (0.52-1.04) mg/dL Glucose (74-99) mg/dL Calcium 8.0 L (8.4-10.2) mg/dL Magnesium (1.6-2.3) mg/dL
[2017-12-18] MEDS: SODIUM CHLORIDE 0.9% 1,000 ML IV SCH (15:53)
--- NOTE | 2017-12-18 18:53 | CONS ---
CONSULTATION REASON FOR CONSULT: Hyperkalemia and renal failure. HISTORY OF PRESENT ILLNESS: The patient is a 72-year-old female who was admitted to the hospital yesterday with complaints of leg cramps. The patient was seen in Dr. Perez's office. She had labs done, which showed a potassium of 7.1 and therefore patient was sent into the hospital. Her creatinine was 2.1 mg/dL with a BUN of 104. Previous creatinine was 0.78 on 10/29/2017. The patient was recently discharged from the hospital on an AMANDA inhibitor. Patient denied use of any nonsteroidal anti-inflammatory agents. Patient also admitted to having blood in the stools. Blood pressure was low at the time of admission and patient was acidotic with a CO2 of 14. She received IV cocktail for the hyperkalemia initially in the ER and was started on a bicarb drip yesterday. Potassium has improved to 4.4 today and serum creatinine is down to 1.6. The patient states she has been voiding fairly well. PAST MEDICAL HISTORY: Cardiomyopathy, ejection fraction 20-25%, COPD, hypothyroidism, history of breast cancer with right mastectomy followed by radiation therapy and chemotherapy, coronary artery disease. Mitral valve regurgitation, scoliosis, hypothyroidism, vitamin D deficiency. PAST SURGICAL HISTORY: Right mastectomy, cardiac catheterization. SOCIAL HISTORY: Patient is a former smoker. No history of drug abuse or alcohol abuse. MEDICATIONS: Medications at home prior to admission include vitamin C, vitamin D3, vitamin D, Lipitor, Lasix, aspirin, Aldactone, Coreg. ALLERGIES: Include MORPHINE. EXAMINATION: Patient is comfortable, awake, not in any acute distress. The blood pressure is 118/53, heart rate of 74 per minute. Patient is afebrile. Examination of the heart: S1, S2. Examination lungs: Bilateral breath sounds are heard. Abdomen is soft, nontender. Examination lower extremity shows no evidence of edema. ONCOLOGY PATIENT NAVIGATOR exam is grossly intact. LABS: Show sodium 140, potassium 4.4, CO2 is 27, chloride 101, BUN 84, serum creatinine 1.6, hemoglobin 12.0. UA is completely benign. ASSESSMENT: 1. Acute kidney injury, prerenal associated with hypotension, hypoperfusion and use of AMANDA inhibitors. Currently maintained on IV fluids with improving renal function. The ultrasound did not show any evidence of obstructive uropathy. 2. Severe hyperkalemia associated with acute kidney injury, use of AMANDA inhibitors and possible underlying GI bleed. The serum potassium is improved. I will discontinue the IV bicarb and switch her to saline. Check stool for occult blood. Rule out underlying GI bleed. 3. Metabolic acidosis secondary to renal failure and hypotension, hypoperfusion. I do not believe the lactic acid was done at the time of admission. 4. Congestive heart failure/cardiomyopathy, ejection fraction 20% to 25%, currently compensated. 5. Severe chronic obstructive pulmonary disease. PLAN: DC IV bicarb switched to normal saline at 50 mL an hour. Repeat labs in a.m. Continue to hold off on AMANDA inhibitors. Check stool for occult blood. I will discontinue the Kayexalate. Thank you for this consultation. We will continue to follow the patient with you during her hospitalization. MMTACHOL / BAUDILION: [id number] /
[2017-12-19] MEDS: SODIUM POLYSTYRENE SULFONATE 15 GM/60 ML BOTTLE PO SCH (01:33)
[2017-12-19] MEDS: CARVEDILOL 12.5 MG TAB PO SCH (06:28)
[2017-12-19 06:50] LABS: Anisocytosis Slight; Basophils % (A) 1 %; Eosinophils # (A) 0.7 k/uL (0-0.7); Eosinophils % (A) 8 %; HCT 38.1 % (34.0-46.0); Lymphocytes % (A) 24 %; MCH 29.5 pg (25.0-35.0); MCHC 31.6 g/dL (31.0-37.0); MCV 93.3 fL (80.0-100.0); Mean Platelet Volume 7.8; Monocytes # (A) 0.4 k/uL (0-1.0); Monocytes % (A) 5 %; Neutrophils # (A) 5.1 k/uL (1.3-7.7); Neutrophils % (A) 61 %; Platelet Count 117 k/uL (150-450); RBC 4.08 m/uL (3.80-5.40); RDW 16.6 % (11.5-15.5); WBC 8.3 k/uL (3.8-10.6)
[2017-12-19 07:04] LABS: Calcium 8.5 mg/dL (8.4-10.2); Potassium 4.4 mmol/L (3.5-5.1); Total Bilirubin 0.3 mg/dL (0.2-1.3); Total Protein 5.5 g/dL (6.3-8.2)
[2017-12-19] MEDS: SYMBICORT 160-4.5 MCG INHALER INHALATION SCH (08:06)
[2017-12-19 08:18] VITALS: RESP 16; TEMP 97.9
[2017-12-19] MEDS: ASCORBIC ACID 500 MG TAB PO SCH (08:19)
[2017-12-19] MEDS: SODIUM CHLORIDE 0.9% 1,000 ML IV SCH (08:19)
[2017-12-19] MEDS: ENOXAPARIN 40 MG/0.4 ML SYRINGE SQ SCH (08:19)
[2017-12-19] MEDS: B COMPLEX-VIT C-VIT E-ZINC 1 EACH TAB PO SCH (08:20)
[2017-12-19] MEDS: ASPIRIN 81 MG PO SCH (08:20)
[2017-12-19] MEDS: ATORVASTATIN 40 MG TAB PO SCH (08:22)
[2017-12-19 12:01] VITALS: BP 121/55; PULSE 65
--- NOTE | 2017-12-19 12:42 | PN ---
PROGRESS NOTE Patient is seen for followup for acute kidney injury and severe hyperkalemia. Her potassium level has improved. She is down to 4.4. Renal function has improved as well with creatinine down to 1.3 from 2.1 mg/dL. Patient is maintained on IV fluids which were decreased to 50 mL an hour. She states she wants to go home. Patient has been on AMANDA inhibitors, which were recently started and it is currently on hold. PHYSICAL EXAMINATION: Blood pressure is 133/65, heart rate 56 per minute. Patient is afebrile. Examination of the heart, S1, S2. Examination of the lungs, bilateral breath sounds are heard. Abdomen is soft, nontender. Examination of the lower extremities shows no evidence of edema. TOP IRONER exam is grossly intact. LABS: Show sodium 141, potassium 4.1, chloride 101, CO2 is 23, BUN of 47, serum creatinine 1.3, hemoglobin 12.0 g/dL. UA is completely benign. ASSESSMENT: 1. Acute kidney injury associated with hypotension, hypoperfusion and use of AMANDA inhibitors, currently significantly improved. Patient is stable for discharge from Nephrology standpoint. 2. Severe hyperkalemia associated with acute kidney injury, use of AMANDA inhibitors, currently improved. Stool for occult blood was ordered to rule out any possible underlying gastrointestinal bleed. I do not see it back yet. Her hemoglobin is fairly stable. 3. Cardiomyopathy, ejection fraction 20% to 25%, currently compensated and stable. 4. Severe chronic obstructive pulmonary disease, currently stable. PLAN: Patient is stable for discharge from Nephrology standpoint. She will continue to hold off on the AMANDA inhibitors. She can continue with the Coreg for now. We will see her for followup in about 1 week's time. MMODL / IJN: [id number] /
--- NOTE | 2017-12-19 13:42 | P.DS ---
Providers Date of admission: 12/17/17 16:01 Attending physician: Sheri Da Silva MD This is a 72-year-old female was admitted to the hospital for severe hyperkalemia and acute renal failure due to dehydration patient has been started on IV hydration Lasix and Aldactone has been stopped the condition of the patient improved and the potassium has been normalized Recommendation of nephrology has been followed Today patient feels fine insisting he wants to go home no chest pain or shortness of breath no vomiting Constitutional: No acute distress, conversant, pleasant Eyes: Anicteric sclerae, moist conjunctiva, no lid-lag PERRLA ENMT: Cranial nerves grossly intact Neck: Supple, FROM, no masses, or JVD No carotid bruits No thyromegaly Lungs: Clear to auscultation Clear to percussion Normal respiratory effort, no accessory muscle use Cardiovascular: Heart regular in rate and rhythm, No murmurs, gallops, or rubs No peripheral edema Abdominal: Soft Nontender, no guarding, rebound or rigidity Abdomen moving with respiration Normoactive bowel sounds No hepatomegaly, No splenomegaly No palpable mass No abdominal wall hernia noted Skin: Normal temperature, tone, texture, turgor No induration No subcutaneous nodules No rash, lesions No ulcers Extremities: No digital cyanosis No clubbing Pedal pulses intact and symmetrical Radial pulses intact and symmetrical Normal gait and station No calf tenderness Psychiatric:Alert and oriented to person, place and time Appropriate affect Intact judgement Neuro: Generalized weakness Discharge plan Severe hyperkalemia due to acute renal failure and dehydration resolved Patient to follow-up with primary care physician and nephrology Patient to avoid Aldactone and potassium Also Lasix will be stopped avoid dehydration may need to be restarted by the primary care physician and nephrology depends on her volume status COPD stable as of exacerbation at this time Iconcerns of the patient has been addressed Patient has been discharged in a stable condition Consults: 12/17/17 16:03 Consult Physician Routine Consulting Provider: Alessio Perez Consult Reason/Comments: Patient known to you Do you want consulting provider notified?: Yes 12/17/17 16:04 Consult Physician Routine Consulting Provider: Dafne Lafleur Consult Reason/Comments: Renal insufficiency with hyperkalemia Do you want consulting provider notified?: Yes Primary care physician: Alessio Perez Patient Condition at Discharge: Stable Plan - Discharge Summary New Discharge Prescriptions: New Albuterol Nebulized [Ventolin Nebulized] 2.5 mg INHALATION RT-Q4H PRN nebu PRN Reason: WHEEZING/SOB Continue Multivitamins, Thera [Multivitamin (formulary)] 1 tab PO DAILY Cholecalciferol [Vitamin D3] 1,000 unit PO DAILY Vitamin B Complex 1 cap PO DAILY Ascorbic Acid [Vitamin C] 1,000 mg PO DAILY Aspirin 81 mg PO DAILY #30 tab Atorvastatin [Lipitor] 40 mg PO DAILY #30 tab Budesonide-Formot 160-4.5 Mcg [Symbicort 160-4.5 Mcg Inhaler] 2 puff INHALATION RT-BID #1 inhaler Nitroglycerin Sl Tabs [Nitrostat] 0.4 mg SUBLINGUAL Q5M PRN #7 tab PRN Reason: Chest Pain Carvedilol [Coreg] 12.5 mg PO BID Albuterol Inhaler [Ventolin Hfa Inhaler] 1 - 2 puff INHALATION RT-Q6H PRN PRN Reason: Shortness Of Breath Or Wheezing Discontinued Furosemide [Lasix] 20 mg PO BID #60 tab Lisinopril [Zestril] 5 mg PO BID #30 tab Spironolactone [Aldactone] 25 mg PO DAILY #30 tab Discharge Medication List Ascorbic Acid [Vitamin C] 1,000 mg PO DAILY 10/23/17 [History] Cholecalciferol [Vitamin D3] 1,000 unit PO DAILY 10/23/17 [History] Multivitamins, Thera [Multivitamin (formulary)] 1 tab PO DAILY 10/23/17 [History ] Vitamin B Complex 1 cap PO DAILY 10/23/17 [History] Aspirin 81 mg PO DAILY #30 tab 10/29/17 [Rx] Atorvastatin [Lipitor] 40 mg PO DAILY #30 tab 10/29/17 [Rx] Budesonide-Formot 160-4.5 Mcg [Symbicort 160-4.5 Mcg Inhaler] 2 puff INHALATION RT-BID #1 inhaler 10/29/17 [Rx] Nitroglycerin Sl Tabs [Nitrostat] 0.4 mg SUBLINGUAL Q5M PRN #7 tab 10/29/17 [Rx] Albuterol Inhaler [Ventolin Hfa Inhaler] 1 - 2 puff INHALATION RT-Q6H PRN [History] Carvedilol [Coreg] 12.5 mg PO BID 12/17/17 [History] Albuterol Nebulized [Ventolin Nebulized] 2.5 mg INHALATION RT-Q4H PRN nebu [Rx] Follow up Appointment(s)/Referral(s): Dafne Lafleur MD [STAFF PHYSICIAN] - 1 Week Alessio Perez MD [Primary Care Provider] - 01/09/18 3:15 pm ( First available appointment) Discharge Disposition: HOME SELF-CARE
--- NOTE | 2017-12-24 10:55 | P.ARTDOP ---
Arterial Doppler LOWER EXTREMITY ARTERIAL DOPPLER: DATE OF SERVICE: 12/18/2017 Reason for study: Suspected lower extremity occlusive disease. Doppler waveforms: Atypical throughout bilaterally. Pulse volume recording: Mild blunting at the thigh level with progressive blunting as one progresses distally.. Pressure gradients: Unable to do complete segmental pressures but there is a significant gradient above the ankle.. Ankle-brachial indices: 0.52 on the right and 0.51 on the left. Toe pressures: [] on the right, [] on the left Impression: Moderate bilateral femoral popliteal occlusive disease. Possible iliac component bilaterally clinical correlation recommended..
== END 2017-12-19 14:38 | disposition home or self-care (01) | DRG 683 ==
LOC: EC 14:35 → 6SEL 16:01
PROVIDERS: ADMIT Internal Medicine; ATTEND Internal Medicine
DX: N17.9 Acute kidney failure, unspecified (principal); E87.2 Acidosis; J96.11 Chronic respiratory failure with hypoxia; E55.9 Vitamin D deficiency, unspecified; E03.9 Hypothyroidism, unspecified; Z85.3 Personal history of malignant neoplasm of breast; Z90.11 Acquired absence of right breast and nipple; E78.5 Hyperlipidemia, unspecified; E87.5 Hyperkalemia; I11.0 Hypertensive heart disease with heart failure; I25.10 Atherosclerotic heart disease of native coronary artery without angina pectoris; I25.5 Ischemic cardiomyopathy; I34.0 Nonrheumatic mitral (valve) insufficiency; I50.9 Heart failure, unspecified; J44.9 Chronic obstructive pulmonary disease, unspecified; K62.89 Other specified diseases of anus and rectum; M19.90 Unspecified osteoarthritis, unspecified site; M41.9 Scoliosis, unspecified; Z79.51 Long term (current) use of inhaled steroids; Z79.82 Long term (current) use of aspirin; Z79.899 Other long term (current) drug therapy; Z82.49 Family history of ischemic heart disease and other diseases of the circulatory system; Z83.3 Family history of diabetes mellitus; Z87.891 Personal history of nicotine dependence; Z92.3 Personal history of irradiation; Z95.1 Presence of aortocoronary bypass graft; E86.0 Dehydration; R53.1 Weakness; T46.5X5A Adverse effect of other antihypertensive drugs, initial encounter; R73.03 Prediabetes; I95.9 Hypotension, unspecified; R25.2 Cramp and spasm
CPT/HCPCS: 36415; 76770; 80048; 80051; 80053; 81003; 83735; 84443; 85025; 85027; 93005; 93922; 93970; 94640; 94760; 96365; 96366; 96375; 99284

== ENCOUNTER → 2017-12-17 | Outpatient (CLI) | payer MEDICARE ==
[2017-12-17 12:35] LABS: Anisocytosis Slight; Basophils % (A) 1 %; Eosinophils # (A) 0.5 k/uL (0-0.7); Eosinophils % (A) 6 %; HCT 44.4 % (34.0-46.0); HGB 14.3 gm/dL (11.4-16.0); Hypochromasia Moderate; Lymphocytes # (A) 1.5 k/uL (1.0-4.8); Lymphocytes % (A) 17 %; MCH 30.9 pg (25.0-35.0); MCHC 32.2 g/dL (31.0-37.0); MCV 95.9 fL (80.0-100.0); Mean Platelet Volume 8.4; Monocytes # (A) 0.4 k/uL (0-1.0); Monocytes % (A) 5 %; Neutrophils # (A) 6.1 k/uL (1.3-7.7); Neutrophils % (A) 70 %; Platelet Count 113 k/uL (150-450); RBC 4.63 m/uL (3.80-5.40); RDW 16.9 % (11.5-15.5); WBC 8.7 k/uL (3.8-10.6)
[2017-12-17 12:52] LABS: Albumin 4.3 g/dL (3.5-5.0); Calcium 9.5 mg/dL (8.4-10.2); Total Bilirubin 0.5 mg/dL (0.2-1.3); Total Protein 7.4 g/dL (6.3-8.2)
[2017-12-17 13:12] LABS: Potassium 7.3 mmol/L (3.5-5.1)
== END | disposition home or self-care (01) ==
LOC: LABWHC1 11:17
PROVIDERS: ATTEND Internal Medicine Critical Care Medicine
DX: J44.9 Chronic obstructive pulmonary disease, unspecified (principal); E03.9 Hypothyroidism, unspecified; Z79.899 Other long term (current) drug therapy
CPT/HCPCS: 36415; 80053; 85025

== ENCOUNTER → 2018-02-06 | Outpatient (CLI) | payer MEDICARE ==
[2018-02-06 09:12] LABS: Calcium 8.7 mg/dL (8.4-10.2); Potassium 4.7 mmol/L (3.5-5.1); Total Bilirubin 0.6 mg/dL (0.2-1.3); Total Protein 6.8 g/dL (6.3-8.2)
== END | disposition home or self-care (01) ==
LOC: LABWHC1 08:30
PROVIDERS: ATTEND Internal Medicine Interventional Cardiology
DX: E78.2 Mixed hyperlipidemia (principal)
CPT/HCPCS: 36415; 80053; 80061

== ENCOUNTER → 2018-04-03 | Outpatient (CLI) | payer MEDICARE ==
[2018-04-03 09:51] LABS: HCT 37.1 % (34.0-46.0); HGB 11.5 gm/dL (11.4-16.0); Hypochromasia Slight; MCH 33.8 pg (25.0-35.0); MCV 109.2 fL (80.0-100.0); Macrocytosis Marked; Mean Platelet Volume 8.3; Platelet Count 158 k/uL (150-450); RDW 13.7 % (11.5-15.5); WBC 8.7 k/uL (3.8-10.6)
[2018-04-03 10:04] LABS: Albumin 3.7 g/dL (3.5-5.0); Calcium 9.1 mg/dL (8.4-10.2); Magnesium 2.2 mg/dL (1.6-2.3); Phosphorus 4.5 mg/dL (2.5-4.5); Potassium 4.7 mmol/L (3.5-5.1); Total Bilirubin 0.4 mg/dL (0.2-1.3); Total Protein 6.8 g/dL (6.3-8.2)
[2018-04-03 10:15] LABS: Creatinine,Urine Random 39.6 mg/dL
[2018-04-03 16:29] LABS: Iron Saturation 30.77 (12.00-45.00)
[2018-04-03 17:01] LABS: Parathyroid Hormone Intact 37.4 pg/mL (14.0-72.0)
== END | disposition home or self-care (01) ==
LOC: LABWHC1 09:07
PROVIDERS: ATTEND Nurse Practitioner Family
DX: N17.9 Acute kidney failure, unspecified (principal); D64.9 Anemia, unspecified; R80.9 Proteinuria, unspecified; E21.3 Hyperparathyroidism, unspecified; E55.9 Vitamin D deficiency, unspecified; M10.9 Gout, unspecified
CPT/HCPCS: 36415; 80053; 82570; 82728; 83540; 83550; 83735; 83970; 84100; 84156; 84550; 85027

== ENCOUNTER → 2018-05-05 | Outpatient (CLI) | payer MEDICARE ==
--- NOTE | 2018-05-05 13:58 | MM ---
Reason for exam: screening (asymptomatic). Last mammogram was performed 13 years and 4 months ago. History: Patient is postmenopausal and has history of breast cancer at age 53. Malignant excisional biopsy of the right breast, March 04, 1998. Mastectomy of the right breast. Radiation therapy of the right breast. Physical Findings: A clinical breast exam by your physician is recommended on an annual basis and results should be correlated with mammographic findings. MG Screen [place] Unilateral W/Cad Bilateral CC and MLO view(s) were taken. No prior studies available for comparison. There are scattered fibroglandular densities. Stable benign calcifications. There is no discrete abnormality. No significant changes when compared with prior studies. ASSESSMENT: Benign, BI-RAD 2 RECOMMENDATION: Routine screening mammogram of the left breast in 1 year.
== END ==
LOC: RADMAMWWP 09:44
PROVIDERS: ATTEND Family Medicine
DX: Z12.31 Encounter for screening mammogram for malignant neoplasm of breast (principal)
CPT/HCPCS: 77067

== ENCOUNTER → 2018-05-13 | Outpatient (CLI) | payer MEDICARE ==
[2018-05-13 17:04] LABS: Albumin 4.2 g/dL (3.80-4.90); Albumin/Globulin Ratio 1.83 (1.20-2.10); Anion Gap 8.7 mmol/L (4.00-12.00); Calcium 8.9 mg/dL (8.7-10.3); Carbon Dioxide 26.3 mmol/L (21.6-31.8); Globulin 2.3 g/dL (2.1-3.7); LDL Cholesterol,Calculated 66.8 mg/dL (0.0-131.0); Potassium 4.7 mmol/L (3.5-5.5); Total Bilirubin 0.3 mg/dL (0.2-1.2); Total Protein 6.5 g/dL (6.2-8.2); VLDL Calculation 22.2 mg/dL (5.00-40.00)
== END | disposition home or self-care (01) ==
LOC: LABWHC1 09:00
PROVIDERS: ATTEND Nurse Practitioner Adult Health
DX: E78.2 Mixed hyperlipidemia (principal); N17.9 Acute kidney failure, unspecified
CPT/HCPCS: 36415; 80053; 80061

== ENCOUNTER 2018-06-18 07:20 | Day surgery (SDC) | payer MEDICARE ==
[2018-06-16 12:39] VITALS: BMI 24.4
[2018-06-18] MEDS ORDERED: fentaNYL (PF) 50 MCG/ML 2 ML AMP ONE (07:42)
[2018-06-18 07:45] VITALS: TEMP 98
[2018-06-18] MEDS ORDERED: SODIUM CHLORIDE 0.9% 500 ML 500 ML IV ONE (07:50)
[2018-06-18] MEDS: BENZOCAINE SPRAY 1 CAN TOPICAL ONE ×2 (08:05→08:16)
[2018-06-18] MEDS ORDERED: MIDAZOLAM 2 MG/2 ML VIAL IVP ONE (08:18)
[2018-06-18] MEDS ORDERED: fentaNYL (PF) 50 MCG/ML 2 ML AMP IVP ONE (08:19)
[2018-06-18] MEDS ORDERED: NITROGLYCERIN SL TABS 0.4 MG TAB SUBLINGUAL PRN (08:39)
[2018-06-18] MEDS ORDERED: SODIUM CHLORIDE 0.9% 1,000 ML IV SCH (08:45)
--- NOTE | 2018-06-18 08:56 | ECHOT ---
TRANSESOPHAGEAL ECHOCARDIOGRAM INDICATION: Evaluation of mitral valve procedure. After explaining the procedure to the patient, its risks and complication, blood pressure, heart rate, O2 saturation was monitored. The throat was sprayed with Cetacaine. She received 1 mg intravenous Versed and 50 mcg intravenous fentanyl. The probe was introduced into the esophagus without difficulty. Images were obtained. The probe was removed. There was no immediate complication. FINDINGS: Left atrial size is mildly dilated. Left atrial appendage is normal. Left ventricular size is normal. The anteroapical wall is hypokinetic. Estimated ejection fraction 45%. The aortic valve revealed fibrocalcific change of the aortic cusp with preserved opening. Calcification of the mitral valve was noted. The tricuspid valve is normal, descending thoracic aorta revealed moderate atherosclerotic changes. No pericardial effusion was noted. Contrast bubble study revealed no evidence shunting across the interatrial septum. Doppler pulse wave and color Doppler obtained revealed moderate mitral with mild tricuspid regurgitation. There was no shunting by color Doppler study. CONCLUSION: 1. Mildly dilated left atrium with normal appearance of left atrial appendage. 2. Normal left ventricular size was mildly impaired left ventricular systolic function. 3. Calcified mitral valve with moderate central mitral regurgitation. 4. Mild tricuspid regurgitation with no evidence of pulmonary hypertension. 5. Moderate atherosclerotic changes of the descending thoracic aorta. 6. No shunting by color Doppler study. 7. No pericardial effusion was noted. MMODL / IJN: [id number] /
[2018-06-18] MEDS ORDERED: FUROSEMIDE 20 MG TAB PO SCH (09:00)
[2018-06-18] MEDS ORDERED: hydrALAZINE HCL 25 MG TAB PO SCH (09:00)
[2018-06-18] MEDS ORDERED: CARVEDILOL 12.5 MG TAB PO SCH (09:00)
[2018-06-18] MEDS ORDERED: MULTIVITAMINS, THERA 1 EACH TAB PO SCH (09:00)
[2018-06-18] MEDS ORDERED: NON-FORMULARY DRUG (Ascorbic Acid [Vitamin C] 1,000 MG) PO SCH (09:00)
[2018-06-18] MEDS ORDERED: NON-FORMULARY DRUG (Vitamin B Complex [Vitamin B Complex] 1 CAP) PO SCH (09:00)
[2018-06-18] MEDS ORDERED: ATORVASTATIN 40 MG TAB PO SCH (09:00)
[2018-06-18] MEDS ORDERED: GABAPENTIN 300 MG CAP PO SCH (09:00)
[2018-06-18] MEDS ORDERED: CHOLECALCIFEROL 1,000 UNIT TAB PO SCH (09:00)
[2018-06-18 09:52] VITALS: BP 121/59; RESP 18
[2018-06-18 09:53] VITALS: PULSE 58
[2018-06-18] MEDS ORDERED: SYMBICORT 160-4.5 MCG INHALER INHALATION SCH (20:00)
[2018-06-18] MEDS ORDERED: ASPIRIN 81 MG PO SCH (21:00)
== END 2018-06-18 10:07 | disposition home or self-care (01) ==
LOC: CATHCVL 07:20
PROVIDERS: ATTEND Internal Medicine Interventional Cardiology
DX: I08.1 Rheumatic disorders of both mitral and tricuspid valves (principal); I70.0 Atherosclerosis of aorta; I25.10 Atherosclerotic heart disease of native coronary artery without angina pectoris; I25.5 Ischemic cardiomyopathy; I10 Essential (primary) hypertension; I73.9 Peripheral vascular disease, unspecified; E78.5 Hyperlipidemia, unspecified; F17.211 Nicotine dependence, cigarettes, in remission; Z79.82 Long term (current) use of aspirin; Z79.51 Long term (current) use of inhaled steroids; Z79.899 Other long term (current) drug therapy; Z88.5 Allergy status to narcotic agent
CPT/HCPCS: 93312; 93320; 93325; J2250; J3010

== ENCOUNTER → 2018-06-24 | Outpatient (CLI) | payer MEDICARE ==
[2018-06-24 09:57] LABS: HCT 36.6 % (34.0-46.0); HGB 11.3 gm/dL (11.4-16.0); Hypochromasia Slight; INR 0.9 (<1.2); MCH 32.9 pg (25.0-35.0); MCHC 30.9 g/dL (31.0-37.0); MCV 106.7 fL (80.0-100.0); Macrocytosis Moderate; Mean Platelet Volume 7.1; Partial Thromboplastin Time 22.9 sec (22.0-30.0); Platelet Count 224 k/uL (150-450); Prothrombin Time 9.5 sec (9.0-12.0); RBC 3.43 m/uL (3.80-5.40); WBC 11.5 k/uL (3.8-10.6)
[2018-06-24 10:04] LABS: Albumin 3.8 g/dL (3.5-5.0); Magnesium 2.2 mg/dL (1.6-2.3); Potassium 4.8 mmol/L (3.5-5.1); Total Bilirubin 0.6 mg/dL (0.2-1.3); Total Protein 7.1 g/dL (6.3-8.2)
[2018-06-24 11:15] LABS: Appearance,Urine Clear (Clear); Bilirubin,Urine Negative (Negative); Blood,Urine Negative (Negative); Color,Urine Light Yellow; Glucose,Urine (UA) Negative (Negative); Ketones,Urine Negative (Negative); Leukocyte Esterase,Urine Negative (Negative); Nitrite,Urine Negative (Negative); PH, Urine 6.5 (5.0-8.0); Protein,Urine Negative (Negative); Specific Gravity,Urine 1.006 (1.001-1.035); Urobilinogen,Urine <2.0 mg/dL (<2.0)
--- NOTE | 2018-06-24 12:54 | XR ---
EXAMINATION TYPE: XR chest 2V DATE OF EXAM: 06/24/2018 COMPARISON: 10/23/2017 HISTORY: Preoperative evaluation. TECHNIQUE: Frontal and lateral views of the chest are obtained. FINDINGS: Persistent right midlung patchy opacity with to the prior of 10/23/2017 and may represent s carring or fibrosis noted on the chest CT dated 10/26/2017. Chronic left basilar atelectasis and/or sc arring is also seen with subsequent left hemidiaphragm slight elevation similar to the prior. Right a xillary clips are noted from prior surgical dissection. Cardia mediastinal silhouette is within casimiro l limits. There is chronic interstitial prominence throughout. IMPRESSION: Chronic findings of interstitial prominence, right midlung opacity discussed as fibrosis on the prior CT, and left basilar chronic atelectasis and/or scarring. No new acute finding.
--- NOTE | 2018-06-24 13:20 | US ---
EXAMINATION TYPE: US carotid duplex BILAT DATE OF EXAM: 06/24/2018 COMPARISON: US 10/2017 CLINICAL HISTORY: Mitral Valve Regurgitation I34.0 Coronary Artery D. EXAM MEASUREMENTS: RIGHT: Peak Systolic Velocity (PSV) cm/sec ----- Right CCA: 116.0 ----- Right ICA: 484.7 ----- Right ECA: 205.2 ICA/CCA ratio: 4.2 RIGHT: End Diastole cm/sec ----- Right CCA: 30.5 ----- Right ICA: 196.2 ----- Right ECA: 21.2 LEFT: Peak Systolic Velocity (PSV) cm/sec ----- Left CCA: 186.5 ----- Left ICA: 305.8 ----- Left ECA: 260.9 ICA/CCA ratio: 1.6 LEFT: End Diastole cm/sec ----- Left CCA: 60.3 ----- Left ICA: 95.7 ----- Left ECA: 29.5 VERTEBRALS (direction of flow): Right Vertebral: Antegrade Left Vertebral: Antegrade Rhythm: Normal High grade stenosis right side with elevated velocities and ratio. Significant shadowing plaque and i ntimal thickening noted. There is also significant stenosis on the left side with elevated velocities and ratio. IMPRESSION: Progression from the prior examination with high-grade stenosis (greater than 70% to near occlusion) within the right carotid bulb extending into the proximal right internal carotid artery and external carotid artery as well as within the left internal carotid artery and external carotid artery. Criteria for Assigning % of Stenosis / Diameter reduction (Estimation based on the indirect measurements of the internal carotid artery velocities (ICA PSV). 1. Normal (no stenosis)=ICA PSV < 125 cm/s: ratio < 2.0: ICA EDV<40 cm/s. 2. Less than 50% stenosis=ICA PSV < 125 cm/s: ratio < 2.0: ICA EDV<40 cm/s. 3. 50 to 69% stenosis=ICA PSV of 125 to 230 cm/s: ration 2.0 ? 4.0: ICA EDV 40-100 cm/s. 4. Greater than 70% stenosis to near occlusion= ICA PSV > 230 cm/s: ratio > 4.0: ICA EDV > 100 cm/s. 5. Near occlusion= ICA PSV velocities may be low or undetectable: variable ratio and ICA EDV. 6. Total occlusion=unable to detect flow.
[2018-06-24 16:41] LABS: Hepatitis A Antibody IgM Non-Reactive (Non-Reactive); Hepatitis B Core IgM Non-Reactive (Non-Reactive)
[2018-06-24 19:15] LABS: Hemoglobin A1C 5.9 % (4.0-6.0)
--- NOTE | 2018-07-02 09:53 | P.VSCSTY ---
Greater Saphenous Vein Mapping This is bilateral lower extremity greater saphenous vein mapping. Date of service all 1817 Vein quality and ultrasound appearance no sign of intraluminal thrombus or significant wall changes. Vein size groin right 8.9 x 8.7 groin left 5.5 x 5.2 High thigh right 3.9 x 4.0 high thigh left 4.6 x 4.4 Mid thigh right 5.1 x 4.5 mid thigh left 4.3 x 4.0 Above-knee right 4.5 x 3.9 above-knee left 4.5 x 4.0 Below knee right 4.0 x 3.3 below-knee left to 0.6 x 1.7 Mid calf right 1.9 x 1.5 mid calf left 1.9 x 1.8 Ankle right 2.1 x 1.8 ankle left 2.3 x 1.7 Impression usable bilateral greater census vein at the knee and above. Lower legs both look a bit small for use as conduit..
== END | disposition home or self-care (01) ==
LOC: LABWHC1 08:55 → LABPAT 08:57
PROVIDERS: ATTEND Thoracic Surgery (Cardiothoracic Vascular Surgery)
DX: Z01.810 Encounter for preprocedural cardiovascular examination (principal); J98.11 Atelectasis; J84.10 Pulmonary fibrosis, unspecified; I65.23 Occlusion and stenosis of bilateral carotid arteries; M21.70 Unequal limb length (acquired), unspecified site
CPT/HCPCS: 71046; 80053; 80061; 80074; 81003; 83036; 83735; 84443; 85027; 85610; 85730; 87070; 87086; 93005; 93880; 93970; 94150

== ENCOUNTER 2018-07-07 05:31 | Inpatient (IN) | payer MEDICARE ==
[~2018-07-07 05:31] MED LIST: ALBUMIN HUMAN 25% 50 ML IV ONE; ASPIRIN 325 MG TAB PO ONE; ATORVASTATIN 10 MG TAB PO ONE; CALCIUM CHLORIDE 100 MG/ML 10 ML SYRINGE IV ONE; CARDIOPLEGIC SOLN (K+ 16 MEQ/L 1,000 ML with SODIUM BICARB (1 MEQ/ML) 20 ML, LIDOCAINE ... PERFUSION ONE; CHLORHEXIDINE GLUCONATE 15 ML CUP MUCOUS MEM ONE; CLEVIDIPINE BUTYRATE 25 MG in EMPTY BAG 1 BAG IV ONE; HEPARIN SODIUM 1,000 UN/ML (10ML VL) IV ONE; HEPARIN SODIUM,PORCINE 5,000 UNIT in SODIUM CHLORIDE 0.9% 500 ML 500 ML IV ONE; INSULIN REGULAR 100 UNIT in SODIUM CHLORIDE 0.9% 100 ML IV ONE; LACTATED RINGERS 1,000 ML IV ONE; MAGNESIUM SULFATE MG 500 MG/ML IV ONE; MANNITOL 25% 12.5 GM/50 ML VIAL IV ONE; METOPROLOL TARTRATE 12.5 MG TAB PO ONE; NITROGLYCERIN SL TABS 0.4 MG TAB SUBLINGUAL ONE; NITROGLYCERIN-D5W PMX 25 MG/250 ML BTL IV ONE; NITROGLYCERIN-D5W PMX 50 MG in DEXTROSE/WATER 1 250ML.BAG IV ONE; NOREPINEPHRINE 4 MG in SODIUM CHLORIDE 0.9% 250 ML IV ONE; PAPAVERINE 360 MG in SODIUM CHLORIDE 0.9% 90 ML IV ONE; PHENYLEPHRINE 40 MG in SODIUM CHLORIDE 0.9% 250 ML IV ONE; PHENYLEPHRINE-0.9% NACL SYG 1 MG/10 ML SYRINGE IV ONE; PROPOFOL 1,000 MG/100 ML VIAL IV ONE; PROTAMINE SULFATE 10 MG/ML 25 ML VIAL IV ONE; PROTAMINE SULFATE 250 MG in EMPTY BAG 1 BAG IV ONE; SODIUM BICARB 8.4% 50 ML SYR (1 MEQ/ML) IV ONE; SODIUM CHLORIDE 0.9% 1,000 ML IV ONE; TRANEXAMIC ACID 2,000 MG in SODIUM CHLORIDE 0.9% 180 ML IV ONE; ceFAZolin 1,000 MG in SODIUM CHLORIDE 0.9% IRRIGATIO 1,000 ML IRRIGATION ONE; ceFAZolin 2,000 MG in SODIUM CHLORIDE 0.9% 30 ML IVPB ONE
[2018-07-07] MEDS ORDERED: methylPREDNISolone SOD SUCCI 125 MG/2 ML VIAL IV STA (06:48)
[2018-07-07] MEDS ORDERED: IPRATROPIUM-ALBUTEROL 3 ML NEB INHALATION STA (06:50)
[2018-07-07] MEDS ORDERED: MIDAZOLAM 2 MG/2 ML VIAL ONE (07:59)
[2018-07-07] MEDS ORDERED: GLYCOPYRROLATE 0.2 MG/ML 2 ML VIAL ONE (07:59)
[2018-07-07] MEDS ORDERED: ALBUMIN HUMAN 5% 500 ML VIAL IVPB ONE (07:59)
[2018-07-07] MEDS ORDERED: ePHEDrine SULFATE/0.9% NACL/PF 50 MG/5 ML SYRINGE IV ONE (07:59)
[2018-07-07] MEDS ORDERED: fentaNYL (PF) 50 MCG/ML 50 ML VIAL ONE (07:59)
[2018-07-07] MEDS ORDERED: VECURONIUM 10 MG VIAL IV ONE (07:59)
[2018-07-07] MEDS ORDERED: PROTAMINE SULFATE 10 MG/ML 25 ML VIAL IV ONE (07:59)
[2018-07-07] MEDS ORDERED: HEPARIN SODIUM,PORCINE 10,000 UNIT/ML 1 ML VIAL ONE (07:59)
[2018-07-07] MEDS ORDERED: SODIUM BICARB 8.4% 50 ML SYR (1 MEQ/ML) ONE (07:59)
[2018-07-07] MEDS ORDERED: LACTATED RINGERS 1,000 ML BAG IV ONE (07:59)
[2018-07-07] MEDS ORDERED: SODIUM CHLORIDE 0.9% 250 ML BAG ONE (07:59)
[2018-07-07] MEDS ORDERED: TRANEXAMIC ACID 1,000 MG/10 ML VIAL ONE (07:59)
[2018-07-07] MEDS ORDERED: CALCIUM CHLORIDE 100 MG/ML 10 ML SYRINGE ONE (07:59)
[2018-07-07] MEDS ORDERED: ALBUMIN HUMAN 5% 250 ML BOTTLE IVPB ONE (07:59)
[2018-07-07] MEDS ORDERED: fentaNYL (PF) 50 MCG/ML 2 ML AMP ONE (07:59)
[2018-07-07] MEDS ORDERED: PROPOFOL 10 MG/ML 20 ML VIAL IV ONE (07:59)
[2018-07-07] MEDS ORDERED: ELECTROLYTE-R (PH 7.4) 1,000 ML IV.SOLN IV ONE (07:59)
[2018-07-07 08:36] LABS: ABG Base Excess 4.2 mmol/L; ABG HCO3 28 mmol/L (21-25); ABG Oxygen Saturation 99.4 % (94-97); ABG PCO2 38 mmHg (35-45); ABG PH 7.48 (7.35-7.45); ABG PO2 156 mmHg (83-108); ABG Sodium Whole Blood 140 mmol/L (135-146); ABG TCO2 29 mmol/L (19-24)
[2018-07-07 10:05] LABS: ABG Base Excess 2.8 mmol/L; ABG HCO3 28 mmol/L (21-25); ABG Oxygen Saturation 99.7 % (94-97); ABG PCO2 43 mmHg (35-45); ABG PH 7.42 (7.35-7.45); ABG PO2 251 mmHg (83-108); ABG Potassium Whole Blood 4.1 mmol/L (3.4-4.5); ABG Sodium Whole Blood 139 mmol/L (135-146); ABG TCO2 29 mmol/L (19-24)
[2018-07-07 10:59] LABS: ABG Base Excess 0.8 mmol/L; ABG HCO3 25 mmol/L (21-25); ABG Oxygen Saturation 99.9 % (94-97); ABG PCO2 34 mmHg (35-45); ABG PH 7.47 (7.35-7.45); ABG PO2 287 mmHg (83-108); ABG Potassium Whole Blood 4.7 mmol/L (3.4-4.5); ABG Sodium Whole Blood 134 mmol/L (135-146); ABG TCO2 26 mmol/L (19-24)
[2018-07-07 11:32] LABS: ABG Base Excess -0.9 mmol/L; ABG HCO3 24 mmol/L (21-25); ABG PCO2 38 mmHg (35-45); ABG PO2 272 mmHg (83-108); ABG Potassium Whole Blood 5.3 mmol/L (3.4-4.5); ABG Sodium Whole Blood 135 mmol/L (135-146); ABG TCO2 25 mmol/L (19-24)
[2018-07-07 12:01] LABS: ABG Base Excess -0.2 mmol/L; ABG HCO3 25 mmol/L (21-25); ABG Oxygen Saturation 99.8 % (94-97); ABG PCO2 39 mmHg (35-45); ABG PH 7.41 (7.35-7.45); ABG PO2 257 mmHg (83-108); ABG Potassium Whole Blood 5.2 mmol/L (3.4-4.5); ABG Sodium Whole Blood 135 mmol/L (135-146); ABG TCO2 26 mmol/L (19-24)
[2018-07-07 12:32] LABS: ABG Base Excess -2.8 mmol/L; ABG HCO3 24 mmol/L (21-25); ABG PCO2 49 mmHg (35-45); ABG PH 7.29 (7.35-7.45); ABG PO2 379 mmHg (83-108); ABG Potassium Whole Blood 5.6 mmol/L (3.4-4.5); ABG Sodium Whole Blood 135 mmol/L (135-146); ABG TCO2 25 mmol/L (19-24)
[2018-07-07 13:38] LABS: ABG Base Excess -4.8 mmol/L; ABG HCO3 21 mmol/L (21-25); ABG PCO2 41 mmHg (35-45); ABG PH 7.32 (7.35-7.45); ABG PO2 360 mmHg (83-108); ABG Potassium Whole Blood 4.8 mmol/L (3.4-4.5); ABG Sodium Whole Blood 137 mmol/L (135-146); ABG TCO2 22 mmol/L (19-24)
[2018-07-07] MEDS ORDERED: AMIODARONE 450 MG in DEXTROSE 5% IN WATER 250 ML IV PRN ×2 (14:45)
[2018-07-07] MEDS ORDERED: NOREPINEPHRINE 4 MG in SODIUM CHLORIDE 0.9% 250 ML IV SCH (14:45)
[2018-07-07] MEDS ORDERED: PROPOFOL 1,000 MG in EMPTY BAG 1 BAG IV SCH (14:45)
[2018-07-07] MEDS ORDERED: EPINEPHrine 2 MG in DEXTROSE 5% IN WATER 250 ML IV SCH ×2 (14:45)
[2018-07-07] MEDS ORDERED: NITROGLYCERIN-D5W PMX 50 MG in DEXTROSE/WATER 1 250ML.BAG IV SCH (14:45)
[2018-07-07] MEDS ORDERED: Potassium Replacement Protocol 1 EACH MISC MISCELLANE PRN (14:45)
[2018-07-07] MEDS ORDERED: DEXTROSE 5% IN WATER 100 ML with AMIODARONE 150 MG IV PRN (14:45)
[2018-07-07] MEDS ORDERED: METOCLOPRAMIDE 5 MG/ML 2 ML VIAL IVP PRN (14:45)
[2018-07-07] MEDS ORDERED: IPRATROPIUM-ALBUTEROL 3 ML NEB INHALATION PRN (14:45)
[2018-07-07] MEDS ORDERED: Phosphorus Replacement Protoco 1 EACH MISC MISCELLANE PRN (14:45)
[2018-07-07] MEDS ORDERED: CALCIUM CHLORIDE 1,000 MG in SODIUM CHLORIDE 0.9% 100 ML IV PRN (14:45)
[2018-07-07] MEDS ORDERED: BENZOCAINE/MENTHOL LOZENG 1 EACH LOZENGE MUCOUS MEM PRN (14:45)
[2018-07-07] MEDS ORDERED: Magnesium Replacement Protocol 1 EACH MISC MISCELLANE PRN (14:45)
[2018-07-07] MEDS ORDERED: INSULIN REGULAR 100 UNIT in SODIUM CHLORIDE 0.9% 100 ML IV SCH (14:45)
--- NOTE | 2018-07-07 14:48 | P.PN ---
Progress Note - Text Procedure performed: Transesophageal echocardiography Indication for the procedure: Coronary artery bypass graft surgery, Mitral valve repair. Ischemia monitoring, assessment of valvular function, intracardiac air monitoring, assessment of regional wall motion abnormalities and hemodynamic monitoring. Probe insertion: Under general anesthesia, uneventful. Pre-bypass findings: Left ventricle normal in dimension and LV ejection fraction is approximately 50% . Mild inferior hypokinesia and apicolateral hypokinesia present. Left atrium Normal in size. No thrombus seen in the appendage. Right atrium normal in size. No patent foramen ovale or ASD seen. Right ventricle normal in structure and function. Aortic valve appears to be normal .No Aortic Regurgitation seen. Mitral valve clacification seen. Mild to moderate centrally directed MR seen. Mitral valve leaflets are coapting normally. Trivial tricuspid regurgitation seen. Pulmonic valve appears to be normal. Descending aorta grade 2 atheroma seen. No pericardial effusion noted. Post-bypass findings: LV ejection fraction is 50%. Inferior wall hypokinesis maybe a little bit worse but getting better. Mitral valve ring prosthesis appears to be well seated and only trivial mitral regurgitation is seen now. RV mildly dilated but the function is good. Rest of the examination is same as pre-bypass.
--- NOTE | 2018-07-07 14:59 | P.OP ---
Date of Procedure: 07/07/18 Preoperative Diagnosis: Coronary artery disease, mitral regurgitation Postoperative Diagnosis: Same Procedure(s) Performed: Coronary artery bypass grafting 5 with sequential LIU to diagonal and LAD, saphenous vein grafts to first and second obtuse marginal and right coronary artery. Mitral valve annuloplasty. Ligation of the left atrial appendage. Endovascular vein harvest of the greater saphenous vein from the left lower extremity. ELLEN by anesthesia. Implants: 24 mm physio-2 annuloplasty ring Anesthesia: GETA Surgeon: Nathaniel Marks Banquet Coordinator #1: Sammy Valderrama Banquet Coordinator #2: Darion Payne Estimated Blood Loss (ml): 300 IV fluids (ml): 2,000 Urine output (ml): 500 Pathology: none sent Condition: stable Disposition: ICU Indications for Procedure: 73-year-old female who presented last spring with severe ventricular dysfunction and congestive heart failure. She was noted to have EF of around 10 % and severe mitral regurgitation. She was also noted to have left main triple- vessel coronary artery disease. She was not felt to be appropriate for cardiac surgery at that time due to her very poor ventricular function. She was treated medically and improved. She was re-seen a couple of months later at which time her ejection fraction at improved and she was considered a candidate for surgery. She had poor dentition in need of dental clearance for mitral valve procedure. This took her several months to obtain. Finally she did obtain dental clearance and a repeat ELLEN demonstrated 45% ejection fraction with moderate central mitral regurgitation. Elective surgery was scheduled. It was canceled last week as the patient had a bronchitis. She is better this week. Operative Findings: ELLEN demonstrated moderate central mitral regurgitation. On exploration of the mitral valve there was posterior annular dilatation. Left sided coronary targets were good. The right coronary artery was a very small vessel. Description of Procedure: The patient was brought to the operating room, placed supine on the operating table, anesthetized and intubated. Ramsey-Karthik catheter been placed in the preop holding area. ELLEN probe was placed. The anterior torso and lower extremities were sterilely prepped and draped in standard fashion. Endovascular vein harvest of the left greater saphenous vein was performed from ankle to groin. It was of good quality. Simultaneous sternotomy was performed a left hemisternum retracted upwards and the left internal mammary artery harvested on a vascularized pedicle. It was left intact on its origin from the subclavian and divided distally. Left pleural space was drained with a 32-Turkish chest tube. Standard sternal retractor was placed and the pericardium was opened in the midline. The heart was exposed with pericardial sutures. A small rent was made in the right pleural. Ascending aorta was soft. The patient was systemically heparinized and cannulated for cardiopulmonary bypass with a 21 mm soft flow cannula in the distal ascending aorta, a 34 straight venous cannula through the right atrial appendage into the inferior vena cava, and a 28 right angle cannula in the superior vena cava. Antegrade and retrograde cardioplegia lines were placed in standard fashion. Patient was placed on cardiopulmonary bypass and stabilized. The coronary targets were identified. Aorta was crossclamped and the heart was arrested with cold crystalloid antegrade cardioplegia followed by retrograde cardioplegia. We proceeded with grafting of the coronary arteries. 3 single vein grafts were performed to the first obtuse marginal the large posterior lateral branch of the circumflex and the distal right coronary artery. The 2 left-sided grafts were good targets the first OM being a 1.5-1.75 mm vessel and the second OM being a 1.75-2 mm vessel. The right coronary artery was a small vessel accepted a 1.5 mm probe proximally but only a 1 mm probe distally. 3 saphenous vein grafts were performed with 3 separate pieces of saphenous vein with running 7-0 Prolene suture. Each graft was probed on completion. Veins were cut to appropriately to reach the ascending aorta. Next a sequential LIU graft to the diagonal and LAD was fashioned. [id number] anastomosis between the LIU and the diagonal was performed with running 8-0 Prolene suture. The diagonal was 1.5 mm vessel of good quality. On completion of that we proceeded to the distal anastomosis of the LIU to the LAD. The LAD was grafted in its midportion where it was a 1.75 mm vessel. Completion of the LIU graft was noted to lay well and was tacked surrounding epicardium with 6-0 silk. Another dose of retrograde cardioplegia was given in the interatrial groove was developed. The left atrium was entered through the inner atrial groove and the atrial valve exposed with the Vicky retractor. The left atrial appendage was oversewn from within the left atrium with 2 layer running closure of 3-0 Prolene. Circumferential annuloplasty sutures of 2-0 Tycron were placed. The valve was tested and noted to have no flail or prolapsed segments. It was just posterior annular dilatation. The anterior leaflet was sized and a 24 mm physio-2 ring was chosen. Annuloplasty sutures were placed through the ring and the ring was seated the sutures tied and cut. Everything seated well. The valve was tested and noted to be competent. Left atriotomy was closed with a single layer running closure of 3-0 Prolene. 2 proximal anastomoses were then created to the ascending aorta using 4 mm punch holes. These were performed with 6-0 Prolene. First obtuse marginal was graft was anastomosed to the mid ascending aorta the left of midline and the right coronary graft was anastomosed to the lower ascending aorta in the midline. On completion of this the patient was placed in Trendelenburg and the cross-clamp was removed. Bulldog clamp was removed from the DARWIN graft. The right coronary graft was de-aired with needle holes and its bulldog clamp was removed. The clamps were placed proximally and distally on the first obtuse marginal graft and it was opened in a longitudinal fashion just distal to the proximal anastomosis. The vein graft to the lateral circumflex was then jumped off the first OM graft using running 7-0 Prolene suture. On completion of this it was de-aired by backbleeding and antegrade flow and suture tied and then the flow opened to the 2 left-sided vein grafts. Hemostasis was now noted throughout. Atrial and ventricular pacing wires were placed and the patient was paced. The heart was de-aired under ELLEN guidance using a Angiocath in the left ventricular apex. Following this the inferior vena caval cannula was pulled back into the right atrium and the superior vena caval cannula was removed. A retrograde cardioplegia line was removed. Meanwhile the patient was rewarmed systemically. The ascending aortic cardia plegia line was removed and the pursestring suture tied. Patient was now weaned from cardiopulmonary bypass. Intermittent low doses of Levophed and epinephrine were used to support the patient for the first hour or so after separation from bypass but were not necessary by the time of transfer to the ICU. Careful hemostasis was obtained throughout following decannulation. The venous cannulation sites required oversewing with 5-0 Prolene. The arterial cannulation site required several 4-0 pledgeted Prolene sutures to obtain good hemostasis. Heparin was reversed with protamine. Once good hemostasis was assured throughout the chest was irrigated with antibiotic solution. We had given to FFP and 6 platelets to support the hemostatic process. The right pleural space was drained with 32-Turkish chest tube in the mediastinum with 236- Turkish chest tubes. Sternum was closed with 8 sternal wires. Fascia was closed with 0 Ethibond. The cutaneous and subcuticular layers with layers of Vicryl suture. Patient remained AV paced at 80. Underlying was a first-degree AV block sinus rhythm in the 60s. Patient was transferred to the ICU in stable hemodynamic condition on no inotropic support.
[2018-07-07 15:11] LABS: Glucose,Whole Blood 160 mg/dL (75-99)
[2018-07-07 15:21] LABS: Anisocytosis Slight; Basophils % (A) 0 %; Eosinophils # (A) 0.1 k/uL (0-0.7); Eosinophils % (A) 0 %; HCT 24.4 % (34.0-46.0); Hypochromasia Slight; Lymphocytes # (A) 1.4 k/uL (1.0-4.8); Lymphocytes % (A) 9 %; MCH 32.8 pg (25.0-35.0); MCHC 32.8 g/dL (31.0-37.0); Macrocytosis Slight; Mean Platelet Volume 7.4; Monocytes # (A) 0.4 k/uL (0-1.0); Monocytes % (A) 3 %; Neutrophils # (A) 13.4 k/uL (1.3-7.7); Neutrophils % (A) 87 %; Platelet Count 155 k/uL (150-450); RBC 2.44 m/uL (3.80-5.40); RDW 17.4 % (11.5-15.5); WBC 15.4 k/uL (3.8-10.6)
[2018-07-07 15:26] LABS: INR 1.1 (<1.2); Partial Thromboplastin Time 25.7 sec (22.0-30.0); Prothrombin Time 11.3 sec (9.0-12.0)
[2018-07-07 15:29] LABS: Ionized Calcium 4.7 mg/dL (4.5-5.3)
[2018-07-07 15:31] LABS: ABG Base Excess -0.9 mmol/L; ABG HCO3 25 mmol/L (21-25); ABG PCO2 45 mmHg (35-45); ABG PH 7.35 (7.35-7.45); ABG PO2 210 mmHg (83-108); ABG TCO2 26 mmol/L (19-24)
[2018-07-07 15:37] LABS: Albumin 2.5 g/dL (3.5-5.0); Magnesium 4.2 mg/dL (1.6-2.3); Potassium 4.8 mmol/L (3.5-5.1); Total Bilirubin 1.3 mg/dL (0.2-1.3); Total Protein 4.8 g/dL (6.3-8.2)
[2018-07-07] MEDS: IPRATROPIUM-ALBUTEROL 3 ML NEB INHALATION SCH ×3 (15:55→20:52)
[2018-07-07 16:03] LABS: Glucose,Whole Blood 157 mg/dL (75-99)
[2018-07-07] MEDS: LACTATED RINGERS 1,000 ML IV SCH (16:04)
--- NOTE | 2018-07-07 16:04 | XR ---
EXAMINATION TYPE: XR chest 1V portable DATE OF EXAM: 07/07/2018 Comparison: 06/24/2018 Clinical History: 73-year-old female Post Operative Cardiac Surgery Findings: ET tube tip appears slightly low measured approximately 1.2 cm from the john. The NG tube is short. The tip is just below the GE junction and the sidehole is above the GE junction. This can be advance d approximately 7 cm further into the stomach. Mediastinal drains and bilateral chest tubes are prese nt. No appreciable pneumothorax. Median sternotomy wires with annuloplasty ring and post-CABG clips. Right IJ sheath with Breckenridge-Karthik catheter, tip in the proximal right main pulmonary artery. Diffuse int erstitial prominence with left basilar opacity. Some Aimee B lines are suggested. Heart upper limits of normal in size. Surgical clips at the right axilla. Impression: 1. ET tube tip appears slightly low, 1.2 cm from the john. Pull back 1.5 cm and reassess at follow- up. 2. The NG tube can be further advanced into the stomach by 7 cm. 3. Bilateral chest tubes without appreciable pneumothorax. 4. Findings suggest interstitial pulmonary edema. Small left pleural effusion with adjacent left basi lar atelectasis and/or consolidation.
[2018-07-07] MEDS: fentaNYL (PF) 50 MCG/ML 2 ML AMP IVP PRN ×2 (16:35→20:27)
[2018-07-07] MEDS: CLEVIDIPINE BUTYRATE 25 MG in EMPTY BAG 1 BAG IV SCH (16:40)
[2018-07-07 16:50] LABS: Glucose,Whole Blood 143 mg/dL (75-99)
--- NOTE | 2018-07-07 17:09 | P.CONS ---
History of Present Illness - Reason for Consult Consult date: 07/07/18 hypothyrodism Requesting physician: Nathaniel Marks - Chief Complaint dyspnea on exertion - History of Present Illness Patient is a 73-year-old female with a past medical history of COPD, multivessel coronary artery disease and severe mitral regurg, breast cancer, hypothyroidism, prediabetes and vitamin D deficiency who presented for elective cardiac bypass surgery. On 07/07 she underwent [address] Marks. She underwent LIU to the LAD, SVG to the first and second obtuse marginal as well as the RCA. She had mitral valve annuloplasty and ligation of the left atrial appendage. Intraoperatively she received 2 units of packed red blood cells, 1 unit of FFP, and 1 unit of platelets. She subsequently been admitted to the ICU. She is currently sedated and on the vent, currently holding propofol in hopes of extubation. Patient seen and examined at bedside. Case discussed with nursing. Performed a thorough records review including her admission which I saw her on 12/17/17. She recently underwent carotid Dopplers which showed high-grade stenosis greater than 70% with near occlusion of the right carotid bowel and proximal right internal carotid. Left internal carotid the same. She underwent recent PFT which showed an FEV1 of 63% of predicted. She is currently on nitroglycerin , clevidipine, and insulin drip Review of Systems ROS unobtainable: due to endotracheal tube Past Medical History Past Medical History: Coronary Artery Disease (CAD), Cancer, COPD, Hypertension , Myocardial Infarction (CT), Skin Disorder, Thyroid Disorder Additional Past Medical History / Comment(s): Hx Right Breast cancer with mastectomy, radiation & chemotherapy, scoliosis of the spine, hypothyroidism, vitamin D deficiency. O2 at night 2L per nasal cannula. Recent fatigue and SOB. Hx Psoriasis. Dry Gangrene right 4th toe., Varicose veins., CHESTER and hyperkalemia. Last Myocardial Infarction Date:: 10/2017 History of Any Multi-Drug Resistant Organisms: None Reported Past Surgical History: Breast Surgery, Heart Catheterization Additional Past Surgical History / Comment(s): Right mastectomy. CABG 5 vessel 07/07/18. Past Anesthesia/Blood Transfusion Reactions: No Reported Reaction Additional Past Anesthesia/Blood Transfusion Reaction / Comm: NO HX OF BLOOD TRANSFUSION. Past Psychological History: No Psychological Hx Reported Additional Psychological History / Comment(s): ANXIOUS REGARDING SURGERY. Smoking Status: Former smoker Past Alcohol Use History: Occasional Additional Past Alcohol Use History / Comment(s): Quit smoking 1 yr ago (2017), smoked 40 yrs, <1PPD. Past Drug Use History: None Reported - Past Family History Father Family Medical History: Coronary Artery Disease (CAD), CVA/TIA, Hypertension, Myocardial Infarction (CT) Mother Family Medical History: Coronary Artery Disease (CAD), CVA/TIA, Diabetes Mellitus, Hypertension, Myocardial Infarction (CT) Additional Family Medical History / Comment(s): pace maker Medications and Allergies Home Medications Medication Instructions Recorded Confirmed Type Ascorbic Acid [Vitamin C] 1,000 mg PO DAILY 10/23/17 07/07/18 History Cholecalciferol [Vitamin D3] 1,000 unit PO DAILY 10/23/17 07/07/18 History Multivitamins, Thera [Multivitamin 1 tab PO DAILY 10/23/17 07/07/18 History (formulary)] Vitamin B Complex 1 cap PO DAILY 10/23/17 07/07/18 History Atorvastatin [Lipitor] 40 mg PO DAILY #30 tab 10/29/17 07/07/18 Rx Budesonide-Formot 160-4.5 Mcg 2 puff INHALATION RT-BID #1 inhaler 10/29/1707/07 Rx [Symbicort 160-4.5 Mcg Inhaler] Nitroglycerin Sl Tabs [Nitrostat] 0.4 mg SUBLINGUAL Q5M PRN #7 tab 10/29/17 Rx Albuterol Inhaler [Ventolin Hfa 1 - 2 puff INHALATION RT-Q6H PRN 12/17/17 History Inhaler] Carvedilol [Coreg] 12.5 mg PO BID-W/MEALS 12/17/17 07/07/18 History Furosemide [Lasix] 20 mg PO DAILY 06/16/18 07/07/18 History Gabapentin [Neurontin] 300 mg PO TID 06/16/18 07/07/18 History hydrALAZINE HCL 25 mg PO BID-W/MEALS 06/16/18 07/07/18 History Aspirin 81 mg PO HS 06/18/18 07/07/18 History Acetaminophen [Tylenol Extra 500 mg PO DAILY PRN 06/23/18 07/07/18 History Strength] Benzonatate [Benzonatate Perle] 100 mg PO TID 07/02/18 07/07/18 History Levofloxacin [Levaquin] 500 mg PO DAILY 07/02/18 07/07/18 History Mupirocin 2% Oint [Bactroban 2% 1 applic NASAL BID 07/04/18 07/07/18 History Oint] Allergies Allergy/AdvReac Type Severity Reaction Status Date / Time morphine AdvReac Hallucinati Verified 07/07/18 15:23 ons Physical Exam Osteopathic Statement: *. No significant issues noted on an osteopathic structural exam other than those noted in the History and Physical/Consult. Vitals: Vital Signs Temp Pulse Pulse Resp BP Pulse Ox 07/07/18 16:15 80 12 99 07/07/18 16:04 80 07/07/18 16:00 80 12 100 07/07/18 15:57 80 07/07/18 15:45 80 12 99 07/07/18 15:30 70 11 L 98 07/07/18 15:15 80 12 99 07/07/18 15:10 80 12 98 07/07/18 15:05 80 12 99 07/07/18 14:56 80 12 99 07/07/18 07:13 61 07/07/18 07:03 60 07/07/18 05:59 97.4 F L 74 18 151/62 93 L Intake and Output 07/07/18 07/07/18 07/07/18 06:59 14:59 22:59 Intake Total 1459 183.633 Output Total 1875 375 Balance -416 -191.367 Intake: IV 63 183.5 CARDIAC OUTPUT 60 Insulin Regular 100 unit 2.5 In Sodium Chloride 0.9% 100 ml @ Per Protocol IV .Q0M [facility] Rx#:[id number] Lactated Ringers 1,000 ml 100 @ 50 mls/hr IV .Q20H [facility] Rx#:[id number] Nitroglycerin-D5w Pmx 50 3.0 mg In Dextrose/Water 1 250ml.bag @ 5 MCG/MIN 1.5 mls/hr IV .Q24H [facility] Rx#: [id number] Norepinephrine 4 mg In 0 Sodium Chloride 0.9% 250 ml @ Titrate IV .Q0M [facility] Rx#:[id number] Pressure Bag (NS) 18 Intake, IV Titration 0.133 Amount Clevidipine Butyrate 25 0.133 mg In Empty Bag 1 bag @ 1 MG/HR 2 mls/hr IV .Q24H [facility] Rx#:[id number] Blood Product 1396 Ffp 24 Cp2d Unit 245 [id number] Ffp 24 Cp2d Unit 221 [id number] Platelet Pheresis Acda2 310 Unit [id number] Rc As-1 Unit 310 [id number] Rc As-1 Unit 310 [id number] Output: Chest Tube Drainage 150 Chest Tube Bilateral 50 Lateral Chest Chest Tube Lower 100 Mediastinal Urine 675 225 Estimated Blood Loss 1200 ABP, PAP, CO, CI - Last 8 Hours Arterial Blood Pressure 145/63 Arterial Blood Pressure 139/57 Arterial Blood Pressure 108/50 Arterial Blood Pressure 115/52 Arterial Blood Pressure 121/58 Arterial Blood Pressure 147/67 Arterial Blood Pressure 160/75 Pulmonary Artery Pressure 40/24 Pulmonary Artery Pressure 40/26 Pulmonary Artery Pressure 36/22 Pulmonary Artery Pressure 33/22 Pulmonary Artery Pressure 36/24 Pulmonary Artery Pressure 42/31 Pulmonary Artery Pressure 47/34 Cardiac Output 3.7 Cardiac Output 3.7 Cardiac Output 3.7 Cardiac Output 4.1 Cardiac Output 3.5 Cardiac Output 3.5 General: non toxic, mild distress, appears at stated age, normal weight Derm: b/l AMANDA wrap inplaceno unusual rashes/lesions no unusual ecchymoses, warm , dry Head: atraumatic, normocephalic, symmetric Eyes: no lid lesion, anicteric sclera, pupils equal round reactive to light ENT: Nose and ears atraumatic Neck: No thyromegaly, trachea midline, supple, cordis in place with Jean Mouth: no lip lesion, mucus membranes moist Cardiovascular: S1S2 reg, no murmur, positive posterior tibial pulse bilateral, no edema, capillary refill less than 2 seconds, chest and mediastinal tubes in place with serosanguanous output. Lungs: CTA bilateral, no rhonchi, no rales , no accessory muscle use, on vent SIMV Abdominal: soft, nontender to palpation, no appreciable organomegaly, normal bowel sounds Ext: no gross muscle atrophy, no contractures, Neuro: No withdrawal to pain b/l UE, moved left upper extremity independently. Psych: recently stopped propofol, still sedated. Results CBC & Chem 7: 07/07/18 15:05 07/07/18 15:05 Labs: Abnormal Lab Results - Last 24 Hours (Table) 07/04/18 07/07/18 07/07/18 Range/Units 08:46 08:35 10:03 WBC (3.8-10.6) k/uL RBC (3.80-5.40) m/uL Hgb (11.4-16.0) gm/dL Hct (34.0-46.0) % RDW (11.5-15.5) % Neutrophils # (1.3-7.7) k/uL ABG pH 7.48 H (7.35-7.45) ABG pCO2 (35-45) mmHg ABG pO2 156 H 251 H (83-108) mmHg ABG HCO3 28 H 28 H (21-25) mmol/L ABG Total CO2 29 H 29 H (19-24) mmol/L ABG O2 Saturation 99.4 H 99.7 H (94-97) % ABG Hematocrit 30 L 28 L (34.0-46.0) % ABG Sodium (135-146) mmol/L ABG Potassium (3.4-4.5) mmol/L ABG Ionized Calcium (4.5-5.3) mg/dL ABG Glucose 106 H 129 H (75-99) mg/dL ABG Lactic Acid (0.5-1.6) mmol/L Hemoglobin 9.7 L 9.1 L (11.4-16.0) gm/dL Chloride (98-107) mmol/L BUN (7-17) mg/dL Glucose (74-99) mg/dL POC Glucose (mg/dL) (75-99) mg/dL Calcium (8.4-10.2) mg/dL Magnesium (1.6-2.3) mg/dL AST (14-36) U/L ALT (9-52) U/L Total Protein (6.3-8.2) g/dL Albumin (3.5-5.0) g/dL Arterial Blood Potassium (3.4-4.5) mmol/L Arterial Blood Glucose 106 H 129 H (75-99) mg/dL Crossmatch See Detail 07/07/18 07/07/18 07/07/18 Range/Units 10:58 11:31 12:00 WBC (3.8-10.6) k/uL RBC (3.80-5.40) m/uL Hgb (11.4-16.0) gm/dL Hct (34.0-46.0) % RDW (11.5-15.5) % Neutrophils # (1.3-7.7) k/uL ABG pH 7.47 H (7.35-7.45) ABG pCO2 34 L (35-45) mmHg ABG pO2 287 H 272 H 257 H (83-108) mmHg ABG HCO3 (21-25) mmol/L ABG Total CO2 26 H 25 H 26 H (19-24) mmol/L ABG O2 Saturation 99.9 H 100.0 H 99.8 H (94-97) % ABG Hematocrit 16 L* 21 L 20 L* (34.0-46.0) % ABG Sodium 134 L (135-146) mmol/L ABG Potassium 4.7 H 5.3 H 5.2 H (3.4-4.5) mmol/L ABG Ionized Calcium 4.2 L 4.2 L 4.3 L (4.5-5.3) mg/dL ABG Glucose 111 H 144 H 131 H (75-99) mg/dL ABG Lactic Acid 2.1 H 1.7 H (0.5-1.6) mmol/L Hemoglobin 5.3 L* 6.8 L* 6.6 L* (11.4-16.0) gm/dL Chloride (98-107) mmol/L BUN (7-17) mg/dL Glucose (74-99) mg/dL POC Glucose (mg/dL) (75-99) mg/dL Calcium (8.4-10.2) mg/dL Magnesium (1.6-2.3) mg/dL AST (14-36) U/L ALT (9-52) U/L Total Protein (6.3-8.2) g/dL Albumin (3.5-5.0) g/dL Arterial Blood Potassium 4.7 H 5.3 H 5.2 H (3.4-4.5) mmol/L Arterial Blood Glucose 111 H 144 H 131 H (75-99) mg/dL Crossmatch 07/07/18 07/07/18 07/07/18 Range/Units 12:31 13:37 15:05 WBC 15.4 H (3.8-10.6) k/uL RBC 2.44 L (3.80-5.40) m/uL Hgb 8.0 L D (11.4-16.0) gm/dL Hct 24.4 L (34.0-46.0) % RDW 17.4 H (11.5-15.5) % Neutrophils # 13.4 H (1.3-7.7) k/uL ABG pH 7.29 L 7.32 L (7.35-7.45) ABG pCO2 49 H (35-45) mmHg ABG pO2 379 H 360 H (83-108) mmHg ABG HCO3 (21-25) mmol/L ABG Total CO2 25 H (19-24) mmol/L ABG O2 Saturation 100.0 H 100.0 H (94-97) % ABG Hematocrit 24 L 24 L (34.0-46.0) % ABG Sodium (135-146) mmol/L ABG Potassium 5.6 H 4.8 H (3.4-4.5) mmol/L ABG Ionized Calcium 4.1 L (4.5-5.3) mg/dL ABG Glucose 145 H 151 H (75-99) mg/dL ABG Lactic Acid 2.0 H 3.6 H* (0.5-1.6) mmol/L Hemoglobin 7.7 L 8.0 L (11.4-16.0) gm/dL Chloride (98-107) mmol/L BUN (7-17) mg/dL Glucose (74-99) mg/dL POC Glucose (mg/dL) (75-99) mg/dL Calcium (8.4-10.2) mg/dL Magnesium (1.6-2.3) mg/dL AST (14-36) U/L ALT (9-52) U/L Total Protein (6.3-8.2) g/dL Albumin (3.5-5.0) g/dL Arterial Blood Potassium 5.6 H 4.8 H (3.4-4.5) mmol/L Arterial Blood Glucose 145 H 151 H (75-99) mg/dL Crossmatch 07/07/18 07/07/18 07/07/18 Range/Units 15:05 15:08 15:29 WBC (3.8-10.6) k/uL RBC (3.80-5.40) m/uL Hgb (11.4-16.0) gm/dL Hct (34.0-46.0) % RDW (11.5-15.5) % Neutrophils # (1.3-7.7) k/uL ABG pH (7.35-7.45) ABG pCO2 (35-45) mmHg ABG pO2 210 H (83-108) mmHg ABG HCO3 (21-25) mmol/L ABG Total CO2 26 H (19-24) mmol/L ABG O2 Saturation 100.0 H (94-97) % ABG Hematocrit (34.0-46.0) % ABG Sodium (135-146) mmol/L ABG Potassium (3.4-4.5) mmol/L ABG Ionized Calcium (4.5-5.3) mg/dL ABG Glucose (75-99) mg/dL ABG Lactic Acid (0.5-1.6) mmol/L Hemoglobin (11.4-16.0) gm/dL Chloride 108 H (98-107) mmol/L BUN 24 H (7-17) mg/dL Glucose 155 H (74-99) mg/dL POC Glucose (mg/dL) 160 H (75-99) mg/dL Calcium 8.0 L (8.4-10.2) mg/dL Magnesium 4.2 H (1.6-2.3) mg/dL AST 169 H (14-36) U/L ALT 106 H (9-52) U/L Total Protein 4.8 L (6.3-8.2) g/dL Albumin 2.5 L (3.5-5.0) g/dL Arterial Blood Potassium (3.4-4.5) mmol/L Arterial Blood Glucose (75-99) mg/dL Crossmatch 07/07/18 Range/Units 15:49 WBC (3.8-10.6) k/uL RBC (3.80-5.40) m/uL Hgb (11.4-16.0) gm/dL Hct (34.0-46.0) % RDW (11.5-15.5) % Neutrophils # (1.3-7.7) k/uL ABG pH (7.35-7.45) ABG pCO2 (35-45) mmHg ABG pO2 (83-108) mmHg ABG HCO3 (21-25) mmol/L ABG Total CO2 (19-24) mmol/L ABG O2 Saturation (94-97) % ABG Hematocrit (34.0-46.0) % ABG Sodium (135-146) mmol/L ABG Potassium (3.4-4.5) mmol/L ABG Ionized Calcium (4.5-5.3) mg/dL ABG Glucose (75-99) mg/dL ABG Lactic Acid (0.5-1.6) mmol/L Hemoglobin (11.4-16.0) gm/dL Chloride (98-107) mmol/L BUN (7-17) mg/dL Glucose (74-99) mg/dL POC Glucose (mg/dL) 157 H (75-99) mg/dL Calcium (8.4-10.2) mg/dL Magnesium (1.6-2.3) mg/dL AST (14-36) U/L ALT (9-52) U/L Total Protein (6.3-8.2) g/dL Albumin (3.5-5.0) g/dL Arterial Blood Potassium (3.4-4.5) mmol/L Arterial Blood Glucose (75-99) mg/dL Crossmatch Assessment and Plan Assessment: Patient is a 73 yo CF here with 5 vessel CABG Prediabetes - A1C 5.9 06/24, down from 6.3 - Insulin gtt due to post op CABG - follow BS Hypothyroidism - resume synthroid when tolerating PO - TSH 1.47 in Jun 2018 Acute blood loss anemia, anticipated outcome of surgery - repeat CBC in AM Elevated liver enzymes, mild - repeat CMP in AM CAD and mitral regurg s/p CABG and mitral valve annuloplasty - management per primary team COPD without exacerbation - Pulm recs - Bronchodilators - pulmonary hygiene CHronic Vit D Deficiency Scoliosis Carotid arterial disease Thank you for allowing us to participate in the care of this patient. Do not hesitate to contact us with questions. Someone can be reached from the [facility] hospitalist group at all hours of the day at [phone].
[2018-07-07 17:50] LABS: Glucose,Whole Blood 135 mg/dL (75-99)
[2018-07-07] MEDS: ceFAZolin IN SWFI 2 GM/20 ML SYRINGE IVP SCH (18:07)
[2018-07-07] MEDS: ACETAMINOPHEN IV (For NPO) 1,000 MG in EMPTY BAG 1 BAG IVPB SCH ×2 (18:08→23:29)
[2018-07-07 18:10] LABS: Anisocytosis Slight; Basophils % (A) 0 %; Eosinophils % (A) 0 %; HCT 23.2 % (34.0-46.0); HGB 7.6 gm/dL (11.4-16.0); Hypochromasia Slight; Lymphocytes # (A) 1.2 k/uL (1.0-4.8); Lymphocytes % (A) 9 %; MCH 32.1 pg (25.0-35.0); MCHC 32.6 g/dL (31.0-37.0); MCV 98.3 fL (80.0-100.0); Macrocytosis Slight; Mean Platelet Volume 8.9; Monocytes # (A) 0.7 k/uL (0-1.0); Monocytes % (A) 5 %; Neutrophils # (A) 11.4 k/uL (1.3-7.7); Neutrophils % (A) 84 %; Platelet Count 116 k/uL (150-450); Poikilocytosis Slight; RBC 2.36 m/uL (3.80-5.40); RDW 17.4 % (11.5-15.5); WBC 13.5 k/uL (3.8-10.6)
[2018-07-07] MEDS: ALBUMIN HUMAN 5% 250 ML in EMPTY BAG 1 BAG IVPB PRN (18:40)
[2018-07-07 18:42] LABS: Glucose,Whole Blood 140 mg/dL (75-99)
[2018-07-07 19:24] LABS: Glucose,Whole Blood 144 mg/dL (75-99)
[2018-07-07 20:36] LABS: ABG Base Excess 1.5 mmol/L; ABG HCO3 28 mmol/L (21-25); ABG Oxygen Saturation 97.4 % (94-97); ABG PCO2 55 mmHg (35-45); ABG PH 7.31 (7.35-7.45); ABG PO2 91 mmHg (83-108); ABG TCO2 29 mmol/L (19-24)
[2018-07-07 20:46] LABS: Glucose,Whole Blood 153 mg/dL (75-99)
[2018-07-07 21:30] LABS: Anisocytosis Slight; Basophils % (A) 0 %; Eosinophils % (A) 0 %; HCT 22.4 % (34.0-46.0); HGB 7.2 gm/dL (11.4-16.0); Hypochromasia Slight; Lymphocytes % (A) 9 %; MCH 31.3 pg (25.0-35.0); MCHC 31.9 g/dL (31.0-37.0); MCV 98.3 fL (80.0-100.0); Macrocytosis Slight; Mean Platelet Volume 8.6; Monocytes # (A) 0.5 k/uL (0-1.0); Monocytes % (A) 5 %; Neutrophils # (A) 8.6 k/uL (1.3-7.7); Neutrophils % (A) 85 %; Platelet Count 122 k/uL (150-450); Poikilocytosis Slight; RBC 2.28 m/uL (3.80-5.40); RDW 17.8 % (11.5-15.5); WBC 10.1 k/uL (3.8-10.6)
[2018-07-07 21:32] LABS: Calcium 7.7 mg/dL (8.4-10.2); Potassium 4.7 mmol/L (3.5-5.1)
[2018-07-07 21:42] LABS: Glucose,Whole Blood 153 mg/dL (75-99)
[2018-07-07] MEDS: MUPIROCIN 2% OINT 22 GM TUBE NASAL SCH (22:07)
[2018-07-07 22:19] LABS: Glucose,Whole Blood 139 mg/dL (75-99)
[2018-07-07] MEDS: HEPARIN SODIUM,PORCINE 5,000 UNIT/ML 1 ML VIAL SQ SCH (22:46)
[2018-07-07 23:04] LABS: Glucose,Whole Blood 119 mg/dL (75-99)
[2018-07-07 23:42] LABS: ABG Base Excess 2.5 mmol/L; ABG HCO3 28 mmol/L (21-25); ABG Oxygen Saturation 98.3 % (94-97); ABG PCO2 50 mmHg (35-45); ABG PH 7.36 (7.35-7.45); ABG PO2 101 mmHg (83-108); ABG TCO2 30 mmol/L (19-24)
[2018-07-08 00:35] LABS: Glucose,Whole Blood 111 mg/dL (75-99)
[2018-07-08] MEDS: ceFAZolin IN SWFI 2 GM/20 ML SYRINGE IVP SCH ×2 (01:07→09:00)
[2018-07-08 01:53] LABS: Glucose,Whole Blood 133 mg/dL (75-99)
[2018-07-08] MEDS: ONDANSETRON 4 MG/2 ML VIAL IVP PRN ×2 (02:24→12:11)
[2018-07-08 02:37] LABS: Glucose,Whole Blood 124 mg/dL (75-99)
--- NOTE | 2018-07-08 02:45 | XR ---
EXAMINATION TYPE: XR chest 1V DATE OF EXAM: 07/08/2018 COMPARISON: 07/07/2018 HISTORY: Short of breath TECHNIQUE: Single frontal view of the chest is obtained. FINDINGS: Endotracheal tube is been removed. There are bilateral chest tubes. There are multiple clementine gical clips at the right axilla. Right central venous catheter has tip in the right pulmonary artery. No pneumothorax. There is pulmonary vascular congestion. IMPRESSION: Pulmonary edema increased slightly compared to yesterday.
[2018-07-08] MEDS: CLEVIDIPINE BUTYRATE 25 MG in EMPTY BAG 1 BAG IV SCH (03:12)
[2018-07-08 03:16] LABS: Glucose,Whole Blood 117 mg/dL (75-99)
[2018-07-08] MEDS ORDERED: FUROSEMIDE 10 MG/ML 2 ML VIAL IV ONE ×2 (03:35→14:03)
[2018-07-08 04:05] LABS: Anisocytosis Slight; Basophils % (A) 0 %; Eosinophils % (A) 0 %; HCT 23.4 % (34.0-46.0); HGB 7.6 gm/dL (11.4-16.0); Hypochromasia Slight; Lymphocytes # (A) 1.2 k/uL (1.0-4.8); Lymphocytes % (A) 12 %; MCH 32.1 pg (25.0-35.0); MCHC 32.5 g/dL (31.0-37.0); MCV 98.8 fL (80.0-100.0); Macrocytosis Slight; Mean Platelet Volume 7.8; Monocytes # (A) 0.4 k/uL (0-1.0); Monocytes % (A) 5 %; Neutrophils # (A) 8.1 k/uL (1.3-7.7); Neutrophils % (A) 82 %; Platelet Count 135 k/uL (150-450); Poikilocytosis Slight; RBC 2.37 m/uL (3.80-5.40); RDW 17.5 % (11.5-15.5); WBC 9.9 k/uL (3.8-10.6)
[2018-07-08 04:12] LABS: Glucose,Whole Blood 111 mg/dL (75-99)
[2018-07-08 04:14] LABS: Ionized Calcium 4.8 mg/dL (4.5-5.3)
[2018-07-08 04:17] LABS: Partial Thromboplastin Time 24.5 sec (22.0-30.0); Prothrombin Time 10.5 sec (9.0-12.0)
[2018-07-08 04:22] LABS: Calcium 7.8 mg/dL (8.4-10.2); Magnesium 3.4 mg/dL (1.6-2.3); Potassium 4.4 mmol/L (3.5-5.1); Total Bilirubin 0.5 mg/dL (0.2-1.3); Total Protein 5.2 g/dL (6.3-8.2)
[2018-07-08] MEDS: ACETAMINOPHEN IV (For NPO) 1,000 MG in EMPTY BAG 1 BAG IVPB SCH ×3 (05:07→20:37)
[2018-07-08 05:09] LABS: Glucose,Whole Blood 130 mg/dL (75-99)
[2018-07-08 06:15] LABS: Glucose,Whole Blood 127 mg/dL (75-99)
[2018-07-08] MEDS: KETOROLAC 30 MG/ML 1 ML VIAL IVP SCH ×3 (06:54→17:39)
--- NOTE | 2018-07-08 07:05 | XR ---
EXAMINATION TYPE: XR chest 1V portable DATE OF EXAM: 07/08/2018 COMPARISON: 07/08/2018 HISTORY: Post cardiac surgery FINDINGS: There are bilateral pleural effusions with cardiomegaly and bibasilar infiltrate. There is a diffuse interstitial pattern. [place]-K[place]ik catheter stable. Bilateral chest tubes are stable with no sizable pn eumothorax. Surgical clips overlying the right axilla. Heart size and mediastinum are stable and prom inent. Correlate clinically. IMPRESSION: 1. Bilateral infiltrate and pleural effusion correlate for CHF. Upper mediastinum remains prominent. Correlate clinically and with CT scan as clinically warranted.
[2018-07-08 07:18] LABS: Glucose,Whole Blood 71 mg/dL (75-99)
[2018-07-08 07:18] LABS: Glucose,Whole Blood 109 mg/dL (75-99)
[2018-07-08 07:18] LABS: Glucose,Whole Blood 70 mg/dL (75-99)
--- NOTE | 2018-07-08 07:29 | P.PN ---
Subjective Progress Note Date: 07/08/18 Principal diagnosis: Coronary artery disease with left main disease, mitral regurgitation. Previous medical history of myocardial infarction, hyperlipidemia, chronic systolic heart failure with most recent ejection fraction 45%, right breast cancer with mastectomy, status post chemo and radiation in 1997, hypothyroidism, previous tobacco dependence with [id number]-hftl history, mild COPD with preoperative FEV1 63% of predicted, home oxygen use when necessary at bedtime, peripheral artery disease with dry gangrene of the fourth toe on the right foot, right carotid stenosis 50-79%, medical noncompliance, significant family history of coronary artery disease. POD #1 coronary artery bypass grafting 5 with sequential LIU to diagonal and LAD, reverse saphenous vein grafts to first and second obtuse marginal and right coronary artery. Mitral valve annuloplasty with a 24 mm physio-2 annuloplasty ring. Ligation of the left atrial appendage. Endovascular vein harvest of the greater saphenous vein from the left lower extremity from the ankle to the groin. Intraoperative transesophageal echocardiogram by anesthesia. Postoperative acute blood loss anemia, expected outcome given hemodilution and cardiopulmonary bypass pump The patient is currently sitting up in bed in no acute distress in the intensive care unit. She was successfully extubated last night at 23:59 and is currently on 15 L high flow nasal cannula. She did have an episode around 2:00 in the morning where she became very nauseous and desaturated into the high 70s , she was given IV Lasix per pulmonology and placed on nonrebreather, her oxygen saturations have improved and she was able to be placed on nasal cannula this morning. She remains AV paced on telemetry, underlying rhythm junctional in the 40s. She is on IV Cleviprex which is currently being weaned off, and IV nitro which is being turned off. She denies pain or shortness of breath at this time. Objective - Vital Signs Vital signs: Vital Signs Temp 98.2 F 07/08/18 04:00 Pulse 80 07/08/18 06:00 Resp 17 07/08/18 06:00 BP 116/61 07/08/18 06:00 Pulse Ox 96 07/08/18 06:00 Intake & Output 07/07/18 07/08/18 07/08/18 18:59 06:59 18:59 Intake Total 1865.083 937.484 Output Total 2707 1855 Balance -841.917 -917.516 Weight 80.8 kg Intake: IV 457.5 876.0 CARDIAC OUTPUT 150 150 Insulin Regular 100 unit 2.5 In Sodium Chloride 0.9% 100 ml @ Per Protocol IV .Q0M BETSY Rx#:[id number] Lactated Ringers 1,000 ml 200 600 @ 50 mls/hr IV .Q20H BETSY Rx#:[id number] Nitroglycerin-D5w Pmx 50 6.0 18.0 mg In Dextrose/Water 1 250ml.bag @ 5 MCG/MIN 1.5 mls/hr IV .Q24H BETSY Rx#: [id number] Norepinephrine 4 mg In 0 Sodium Chloride 0.9% 250 ml @ Titrate IV .Q0M BETSY Rx#:[id number] Pressure Bag (NS) 36 108 Intake, IV Titration 11.583 61.484 Amount Clevidipine Butyrate 25 6.133 40.867 mg In Empty Bag 1 bag @ 1 MG/HR 2 mls/hr IV .Q24H BETSY Rx#:[id number] Insulin Regular 100 unit 5.450 20.617 In Sodium Chloride 0.9% 100 ml @ Per Protocol IV .Q0M BETSY Rx#:[id number] Blood Product 1396 Ffp 24 Cp2d Unit 245 [id number] Ffp 24 Cp2d Unit 221 [id number] Platelet Pheresis Acda2 310 Unit [id number] Rc As-1 Unit 310 [id number] Rc As-1 Unit 310 [id number] Output: Chest Tube Drainage 302 778 Chest Tube Bilateral 116 442 Lateral Chest Chest Tube Lower 186 336 Mediastinal Urine 1205 1077 Estimated Blood Loss 1200 Other: Voiding Method Indwelling Catheter Indwelling Catheter ABP, PAP, CO, CI - Last Documented Arterial Blood Pressure 132/58 Pulmonary Artery Pressure 39/21 Cardiac Output 4.1 Cardiac Index 2.4 - Constitutional General appearance: Present: cooperative, no acute distress - Respiratory Details: Lung sounds diminished bilaterally with coarse breath sounds in the bases. Respirations even, nonlabored. Currently on 15 L nasal cannula with oxygen saturation 93%. Only able to achieve 500 mL on her incentive spirometry. Weak , dry cough present. Mediastinal chest tube to continuous wall suction, 160 mL serosanguineous drainage overnight, 500 mL since surgery, no air leak present. Right/left pleural chest tube to continuous wall suction, 360 mL serosanguineous drainage overnight, 550 mL since surgery, no air leaks present. - Cardiovascular Details: S1, S2 present. Regular rate and rhythm, AV paced on telemetry with underlying rhythm junctional in the 40s. A/V epicardial pacemaker wires present, connected to generator, DDD mode with rate 70 bpm. Sternum stable. Palpable peripheral pulses bilaterally. No edema present. No calf pain or tenderness noted. Right internal jugular Hershey/Cordis, left radial arterial line present. Last CO/CI 4.1/2.4 on no inotropes or pressors. Heart hugger in place with patient demonstrating appropriate use. Antiembolism stockings, SCDs present. - Gastrointestinal Gastrointestinal Comment(s): Abdomen soft, nontender, nondistended. Hypoactive bowel sounds present 4 quadrants. Tolerating sips of water. Positive belching, negative flatus. - Genitourinary Genitourinary Comment(s): Marshall present draining clear, yellow urine. Output overnight 25-50 mL per hour , after Lasix given output increased to 100-350 mL per hour with total 900 mL in the last 4 hours. - Integumentary Integumentary Comment(s): Skin is warm and dry without evidence of good perfusion. Anterior chest incision well approximated and covered with dry intact dressing. Left lower extremity EVH site well approximated. Fourth toe on right foot with black dry gangrene, present prior to admission and being followed by vascular surgery. - Neurologic Neurologic: Present: CNII-XII intact - Musculoskeletal Musculoskeletal: Present: strength equal bilaterally - Psychiatric Psychiatric: Present: A&O x's 3, appropriate affect, intact judgment & insight - Allied health notes Allied health notes reviewed: nursing - Labs CBC & Chem 7: 07/08/18 03:50 07/08/18 03:50 Labs: Abnormal Lab Results - Last 24 Hours (Table) 07/04/18 07/07/18 07/07/18 Range/Units 08:46 08:35 10:03 WBC (3.8-10.6) k/uL RBC (3.80-5.40) m/uL Hgb (11.4-16.0) gm/dL Hct (34.0-46.0) % RDW (11.5-15.5) % Plt Count (150-450) k/uL Neutrophils # (1.3-7.7) k/uL ABG pH 7.48 H (7.35-7.45) ABG pCO2 (35-45) mmHg ABG pO2 156 H 251 H (83-108) mmHg ABG HCO3 28 H 28 H (21-25) mmol/L ABG Total CO2 29 H 29 H (19-24) mmol/L ABG O2 Saturation 99.4 H 99.7 H (94-97) % ABG Hematocrit 30 L 28 L (34.0-46.0) % ABG Sodium (135-146) mmol/L ABG Potassium (3.4-4.5) mmol/L ABG Ionized Calcium (4.5-5.3) mg/dL ABG Glucose 106 H 129 H (75-99) mg/dL ABG Lactic Acid (0.5-1.6) mmol/L Hemoglobin 9.7 L 9.1 L (11.4-16.0) gm/dL Chloride (98-107) mmol/L BUN (7-17) mg/dL Glucose (74-99) mg/dL POC Glucose (mg/dL) (75-99) mg/dL Calcium (8.4-10.2) mg/dL Magnesium (1.6-2.3) mg/dL AST (14-36) U/L ALT (9-52) U/L Total Protein (6.3-8.2) g/dL Albumin (3.5-5.0) g/dL Arterial Blood Potassium (3.4-4.5) mmol/L Arterial Blood Glucose 106 H 129 H (75-99) mg/dL Crossmatch See Detail 07/07/18 07/07/18 07/07/18 Range/Units 10:58 11:31 12:00 WBC (3.8-10.6) k/uL RBC (3.80-5.40) m/uL Hgb (11.4-16.0) gm/dL Hct (34.0-46.0) % RDW (11.5-15.5) % Plt Count (150-450) k/uL Neutrophils # (1.3-7.7) k/uL ABG pH 7.47 H (7.35-7.45) ABG pCO2 34 L (35-45) mmHg ABG pO2 287 H 272 H 257 H (83-108) mmHg ABG HCO3 (21-25) mmol/L ABG Total CO2 26 H 25 H 26 H (19-24) mmol/L ABG O2 Saturation 99.9 H 100.0 H 99.8 H (94-97) % ABG Hematocrit 16 L* 21 L 20 L* (34.0-46.0) % ABG Sodium 134 L (135-146) mmol/L ABG Potassium 4.7 H 5.3 H 5.2 H (3.4-4.5) mmol/L ABG Ionized Calcium 4.2 L 4.2 L 4.3 L (4.5-5.3) mg/dL ABG Glucose 111 H 144 H 131 H (75-99) mg/dL ABG Lactic Acid 2.1 H 1.7 H (0.5-1.6) mmol/L Hemoglobin 5.3 L* 6.8 L* 6.6 L* (11.4-16.0) gm/dL Chloride (98-107) mmol/L BUN (7-17) mg/dL Glucose (74-99) mg/dL POC Glucose (mg/dL) (75-99) mg/dL Calcium (8.4-10.2) mg/dL Magnesium (1.6-2.3) mg/dL AST (14-36) U/L ALT (9-52) U/L Total Protein (6.3-8.2) g/dL Albumin (3.5-5.0) g/dL Arterial Blood Potassium 4.7 H 5.3 H 5.2 H (3.4-4.5) mmol/L Arterial Blood Glucose 111 H 144 H 131 H (75-99) mg/dL Crossmatch 07/07/18 07/07/18 07/07/18 Range/Units 12:31 13:37 15:05 WBC 15.4 H (3.8-10.6) k/uL RBC 2.44 L (3.80-5.40) m/uL Hgb 8.0 L D (11.4-16.0) gm/dL Hct 24.4 L (34.0-46.0) % RDW 17.4 H (11.5-15.5) % Plt Count (150-450) k/uL Neutrophils # 13.4 H (1.3-7.7) k/uL ABG pH 7.29 L 7.32 L (7.35-7.45) ABG pCO2 49 H (35-45) mmHg ABG pO2 379 H 360 H (83-108) mmHg ABG HCO3 (21-25) mmol/L ABG Total CO2 25 H (19-24) mmol/L ABG O2 Saturation 100.0 H 100.0 H (94-97) % ABG Hematocrit 24 L 24 L (34.0-46.0) % ABG Sodium (135-146) mmol/L ABG Potassium 5.6 H 4.8 H (3.4-4.5) mmol/L ABG Ionized Calcium 4.1 L (4.5-5.3) mg/dL ABG Glucose 145 H 151 H (75-99) mg/dL ABG Lactic Acid 2.0 H 3.6 H* (0.5-1.6) mmol/L Hemoglobin 7.7 L 8.0 L (11.4-16.0) gm/dL Chloride (98-107) mmol/L BUN (7-17) mg/dL Glucose (74-99) mg/dL POC Glucose (mg/dL) (75-99) mg/dL Calcium (8.4-10.2) mg/dL Magnesium (1.6-2.3) mg/dL AST (14-36) U/L ALT (9-52) U/L Total Protein (6.3-8.2) g/dL Albumin (3.5-5.0) g/dL Arterial Blood Potassium 5.6 H 4.8 H (3.4-4.5) mmol/L Arterial Blood Glucose 145 H 151 H (75-99) mg/dL Crossmatch 07/07/18 07/07/18 07/07/18 Range/Units 15:05 15:08 15:29 WBC (3.8-10.6) k/uL RBC (3.80-5.40) m/uL Hgb (11.4-16.0) gm/dL Hct (34.0-46.0) % RDW (11.5-15.5) % Plt Count (150-450) k/uL Neutrophils # (1.3-7.7) k/uL ABG pH (7.35-7.45) ABG pCO2 (35-45) mmHg ABG pO2 210 H (83-108) mmHg ABG HCO3 (21-25) mmol/L ABG Total CO2 26 H (19-24) mmol/L ABG O2 Saturation 100.0 H (94-97) % ABG Hematocrit (34.0-46.0) % ABG Sodium (135-146) mmol/L ABG Potassium (3.4-4.5) mmol/L ABG Ionized Calcium (4.5-5.3) mg/dL ABG Glucose (75-99) mg/dL ABG Lactic Acid (0.5-1.6) mmol/L Hemoglobin (11.4-16.0) gm/dL Chloride 108 H (98-107) mmol/L BUN 24 H (7-17) mg/dL Glucose 155 H (74-99) mg/dL POC Glucose (mg/dL) 160 H (75-99) mg/dL Calcium 8.0 L (8.4-10.2) mg/dL Magnesium 4.2 H (1.6-2.3) mg/dL AST 169 H (14-36) U/L ALT 106 H (9-52) U/L Total Protein 4.8 L (6.3-8.2) g/dL Albumin 2.5 L (3.5-5.0) g/dL Arterial Blood Potassium (3.4-4.5) mmol/L Arterial Blood Glucose (75-99) mg/dL Crossmatch 07/07/18 07/07/18 07/07/18 Range/Units 15:49 16:24 17:24 WBC (3.8-10.6) k/uL RBC (3.80-5.40) m/uL Hgb (11.4-16.0) gm/dL Hct (34.0-46.0) % RDW (11.5-15.5) % Plt Count (150-450) k/uL Neutrophils # (1.3-7.7) k/uL ABG pH (7.35-7.45) ABG pCO2 (35-45) mmHg ABG pO2 (83-108) mmHg ABG HCO3 (21-25) mmol/L ABG Total CO2 (19-24) mmol/L ABG O2 Saturation (94-97) % ABG Hematocrit (34.0-46.0) % ABG Sodium (135-146) mmol/L ABG Potassium (3.4-4.5) mmol/L ABG Ionized Calcium (4.5-5.3) mg/dL ABG Glucose (75-99) mg/dL ABG Lactic Acid (0.5-1.6) mmol/L Hemoglobin (11.4-16.0) gm/dL Chloride (98-107) mmol/L BUN (7-17) mg/dL Glucose (74-99) mg/dL POC Glucose (mg/dL) 157 H 143 H 135 H (75-99) mg/dL Calcium (8.4-10.2) mg/dL Magnesium (1.6-2.3) mg/dL AST (14-36) U/L ALT (9-52) U/L Total Protein (6.3-8.2) g/dL Albumin (3.5-5.0) g/dL Arterial Blood Potassium (3.4-4.5) mmol/L Arterial Blood Glucose (75-99) mg/dL Crossmatch 07/07/18 07/07/18 07/07/18 Range/Units 18:04 18:27 19:19 WBC 13.5 H (3.8-10.6) k/uL RBC 2.36 L (3.80-5.40) m/uL Hgb 7.6 L (11.4-16.0) gm/dL Hct 23.2 L (34.0-46.0) % RDW 17.4 H (11.5-15.5) % Plt Count 116 L (150-450) k/uL Neutrophils # 11.4 H (1.3-7.7) k/uL ABG pH (7.35-7.45) ABG pCO2 (35-45) mmHg ABG pO2 (83-108) mmHg ABG HCO3 (21-25) mmol/L ABG Total CO2 (19-24) mmol/L ABG O2 Saturation (94-97) % ABG Hematocrit (34.0-46.0) % ABG Sodium (135-146) mmol/L ABG Potassium (3.4-4.5) mmol/L ABG Ionized Calcium (4.5-5.3) mg/dL ABG Glucose (75-99) mg/dL ABG Lactic Acid (0.5-1.6) mmol/L Hemoglobin (11.4-16.0) gm/dL Chloride (98-107) mmol/L BUN (7-17) mg/dL Glucose (74-99) mg/dL POC Glucose (mg/dL) 140 H 144 H (75-99) mg/dL Calcium (8.4-10.2) mg/dL Magnesium (1.6-2.3) mg/dL AST (14-36) U/L ALT (9-52) U/L Total Protein (6.3-8.2) g/dL Albumin (3.5-5.0) g/dL Arterial Blood Potassium (3.4-4.5) mmol/L Arterial Blood Glucose (75-99) mg/dL Crossmatch 07/07/18 07/07/18 07/07/18 Range/Units 20:31 20:33 21:00 WBC (3.8-10.6) k/uL RBC (3.80-5.40) m/uL Hgb (11.4-16.0) gm/dL Hct (34.0-46.0) % RDW (11.5-15.5) % Plt Count (150-450) k/uL Neutrophils # (1.3-7.7) k/uL ABG pH 7.31 L (7.35-7.45) ABG pCO2 55 H (35-45) mmHg ABG pO2 (83-108) mmHg ABG HCO3 28 H (21-25) mmol/L ABG Total CO2 29 H (19-24) mmol/L ABG O2 Saturation 97.4 H (94-97) % ABG Hematocrit (34.0-46.0) % ABG Sodium (135-146) mmol/L ABG Potassium (3.4-4.5) mmol/L ABG Ionized Calcium (4.5-5.3) mg/dL ABG Glucose (75-99) mg/dL ABG Lactic Acid (0.5-1.6) mmol/L Hemoglobin (11.4-16.0) gm/dL Chloride (98-107) mmol/L BUN 26 H (7-17) mg/dL Glucose 131 H (74-99) mg/dL POC Glucose (mg/dL) 153 H (75-99) mg/dL Calcium 7.7 L (8.4-10.2) mg/dL Magnesium (1.6-2.3) mg/dL AST (14-36) U/L ALT (9-52) U/L Total Protein (6.3-8.2) g/dL Albumin (3.5-5.0) g/dL Arterial Blood Potassium (3.4-4.5) mmol/L Arterial Blood Glucose (75-99) mg/dL Crossmatch 07/07/18 07/07/18 07/07/18 Range/Units 21:00 21:06 22:05 WBC (3.8-10.6) k/uL RBC 2.28 L (3.80-5.40) m/uL Hgb 7.2 L (11.4-16.0) gm/dL Hct 22.4 L (34.0-46.0) % RDW 17.8 H (11.5-15.5) % Plt Count 122 L (150-450) k/uL Neutrophils # 8.6 H (1.3-7.7) k/uL ABG pH (7.35-7.45) ABG pCO2 (35-45) mmHg ABG pO2 (83-108) mmHg ABG HCO3 (21-25) mmol/L ABG Total CO2 (19-24) mmol/L ABG O2 Saturation (94-97) % ABG Hematocrit (34.0-46.0) % ABG Sodium (135-146) mmol/L ABG Potassium (3.4-4.5) mmol/L ABG Ionized Calcium (4.5-5.3) mg/dL ABG Glucose (75-99) mg/dL ABG Lactic Acid (0.5-1.6) mmol/L Hemoglobin (11.4-16.0) gm/dL Chloride (98-107) mmol/L BUN (7-17) mg/dL Glucose (74-99) mg/dL POC Glucose (mg/dL) 153 H 139 H (75-99) mg/dL Calcium (8.4-10.2) mg/dL Magnesium (1.6-2.3) mg/dL AST (14-36) U/L ALT (9-52) U/L Total Protein (6.3-8.2) g/dL Albumin (3.5-5.0) g/dL Arterial Blood Potassium (3.4-4.5) mmol/L Arterial Blood Glucose (75-99) mg/dL Crossmatch 07/07/18 07/07/18 07/08/18 Range/Units 23:02 23:39 00:09 WBC (3.8-10.6) k/uL RBC (3.80-5.40) m/uL Hgb (11.4-16.0) gm/dL Hct (34.0-46.0) % RDW (11.5-15.5) % Plt Count (150-450) k/uL Neutrophils # (1.3-7.7) k/uL ABG pH (7.35-7.45) ABG pCO2 50 H (35-45) mmHg ABG pO2 (83-108) mmHg ABG HCO3 28 H (21-25) mmol/L ABG Total CO2 30 H (19-24) mmol/L ABG O2 Saturation 98.3 H (94-97) % ABG Hematocrit (34.0-46.0) % ABG Sodium (135-146) mmol/L ABG Potassium (3.4-4.5) mmol/L ABG Ionized Calcium (4.5-5.3) mg/dL ABG Glucose (75-99) mg/dL ABG Lactic Acid (0.5-1.6) mmol/L Hemoglobin (11.4-16.0) gm/dL Chloride (98-107) mmol/L BUN (7-17) mg/dL Glucose (74-99) mg/dL POC Glucose (mg/dL) 119 H 111 H (75-99) mg/dL Calcium (8.4-10.2) mg/dL Magnesium (1.6-2.3) mg/dL AST (14-36) U/L ALT (9-52) U/L Total Protein (6.3-8.2) g/dL Albumin (3.5-5.0) g/dL Arterial Blood Potassium (3.4-4.5) mmol/L Arterial Blood Glucose (75-99) mg/dL Crossmatch 07/08/18 07/08/18 07/08/18 Range/Units 01:04 02:24 03:01 WBC (3.8-10.6) k/uL RBC (3.80-5.40) m/uL Hgb (11.4-16.0) gm/dL Hct (34.0-46.0) % RDW (11.5-15.5) % Plt Count (150-450) k/uL Neutrophils # (1.3-7.7) k/uL ABG pH (7.35-7.45) ABG pCO2 (35-45) mmHg ABG pO2 (83-108) mmHg ABG HCO3 (21-25) mmol/L ABG Total CO2 (19-24) mmol/L ABG O2 Saturation (94-97) % ABG Hematocrit (34.0-46.0) % ABG Sodium (135-146) mmol/L ABG Potassium (3.4-4.5) mmol/L ABG Ionized Calcium (4.5-5.3) mg/dL ABG Glucose (75-99) mg/dL ABG Lactic Acid (0.5-1.6) mmol/L Hemoglobin (11.4-16.0) gm/dL Chloride (98-107) mmol/L BUN (7-17) mg/dL Glucose (74-99) mg/dL POC Glucose (mg/dL) 133 H 124 H 117 H (75-99) mg/dL Calcium (8.4-10.2) mg/dL Magnesium (1.6-2.3) mg/dL AST (14-36) U/L ALT (9-52) U/L Total Protein (6.3-8.2) g/dL Albumin (3.5-5.0) g/dL Arterial Blood Potassium (3.4-4.5) mmol/L Arterial Blood Glucose (75-99) mg/dL Crossmatch 07/08/18 07/08/18 07/08/18 Range/Units 03:50 03:50 03:58 WBC (3.8-10.6) k/uL RBC 2.37 L (3.80-5.40) m/uL Hgb 7.6 L (11.4-16.0) gm/dL Hct 23.4 L (34.0-46.0) % RDW 17.5 H (11.5-15.5) % Plt Count 135 L (150-450) k/uL Neutrophils # 8.1 H (1.3-7.7) k/uL ABG pH (7.35-7.45) ABG pCO2 (35-45) mmHg ABG pO2 (83-108) mmHg ABG HCO3 (21-25) mmol/L ABG Total CO2 (19-24) mmol/L ABG O2 Saturation (94-97) % ABG Hematocrit (34.0-46.0) % ABG Sodium (135-146) mmol/L ABG Potassium (3.4-4.5) mmol/L ABG Ionized Calcium (4.5-5.3) mg/dL ABG Glucose (75-99) mg/dL ABG Lactic Acid (0.5-1.6) mmol/L Hemoglobin (11.4-16.0) gm/dL Chloride (98-107) mmol/L BUN 27 H (7-17) mg/dL Glucose 107 H (74-99) mg/dL POC Glucose (mg/dL) 111 H (75-99) mg/dL Calcium 7.8 L (8.4-10.2) mg/dL Magnesium 3.4 H (1.6-2.3) mg/dL AST 149 H (14-36) U/L ALT 87 H (9-52) U/L Total Protein 5.2 L (6.3-8.2) g/dL Albumin 3.0 L (3.5-5.0) g/dL Arterial Blood Potassium (3.4-4.5) mmol/L Arterial Blood Glucose (75-99) mg/dL Crossmatch 07/08/18 07/08/18 Range/Units 05:06 06:01 WBC (3.8-10.6) k/uL RBC (3.80-5.40) m/uL Hgb (11.4-16.0) gm/dL Hct (34.0-46.0) % RDW (11.5-15.5) % Plt Count (150-450) k/uL Neutrophils # (1.3-7.7) k/uL ABG pH (7.35-7.45) ABG pCO2 (35-45) mmHg ABG pO2 (83-108) mmHg ABG HCO3 (21-25) mmol/L ABG Total CO2 (19-24) mmol/L ABG O2 Saturation (94-97) % ABG Hematocrit (34.0-46.0) % ABG Sodium (135-146) mmol/L ABG Potassium (3.4-4.5) mmol/L ABG Ionized Calcium (4.5-5.3) mg/dL ABG Glucose (75-99) mg/dL ABG Lactic Acid (0.5-1.6) mmol/L Hemoglobin (11.4-16.0) gm/dL Chloride (98-107) mmol/L BUN (7-17) mg/dL Glucose (74-99) mg/dL POC Glucose (mg/dL) 130 H 127 H (75-99) mg/dL Calcium (8.4-10.2) mg/dL Magnesium (1.6-2.3) mg/dL AST (14-36) U/L ALT (9-52) U/L Total Protein (6.3-8.2) g/dL Albumin (3.5-5.0) g/dL Arterial Blood Potassium (3.4-4.5) mmol/L Arterial Blood Glucose (75-99) mg/dL Crossmatch - Imaging and Cardiology Chest x-ray: image reviewed Assessment and Plan (1) CAD (coronary artery disease), [place] coronary artery Current Visit: Yes Status: Chronic Code(s): I25.10 - ATHSCL HEART DISEASE OF [place] CORONARY ARTERY W/O ANG PCTRS SNOMED Code(s): 6980972314096 (2) COPD (chronic obstructive pulmonary disease) Current Visit: Yes Status: Chronic Code(s): J44.9 - CHRONIC OBSTRUCTIVE PULMONARY DISEASE, UNSPECIFIED SNOMED Code(s): 07140258 (3) Carotid arterial disease Current Visit: Yes Status: Chronic Code(s): I77.9 - DISORDER OF ARTERIES AND ARTERIOLES, UNSPECIFIED SNOMED Code(s): 756365281 (4) Medical non-compliance Current Visit: Yes Status: Chronic Code(s): Z91.19 - PATIENT'S NONCOMPLIANCE W OTH MEDICAL TREATMENT AND REGIMEN SNOMED Code(s): 662105868 (5) Severe mitral regurgitation Current Visit: Yes Status: Chronic Code(s): I34.0 - NONRHEUMATIC MITRAL ( VALVE) INSUFFICIENCY SNOMED Code(s): 70169470 (6) Family history of heart disease Current Visit: Yes Status: Chronic Code(s): Z82.49 - FAMILY HX OF ISCHEM HEART DIS AND OTH DIS OF THE CIRC SYS SNOMED Code(s): 147578513 (7) Hypothyroid Current Visit: No Status: Resolved Code(s): E03.9 - HYPOTHYROIDISM, UNSPECIFIED SNOMED Code(s): 08601432 (8) Left main coronary artery disease Current Visit: Yes Status: Chronic Code(s): I25.10 - ATHSCL HEART DISEASE OF [place] CORONARY ARTERY W/O ANG PCTRS SNOMED Code(s): 397678807 (9) Hyperlipidemia Current Visit: Yes Status: Chronic Code(s): E78.5 - HYPERLIPIDEMIA, UNSPECIFIED SNOMED Code(s): 65864798 (10) Chronic systolic heart failure Current Visit: Yes Status: Chronic Code(s): I50.22 - CHRONIC SYSTOLIC ( CONGESTIVE) HEART FAILURE SNOMED Code(s): 546570242 (11) Previous myocardial infarction older than 8 weeks Current Visit: No Status: Resolved Code(s): I25.2 - OLD MYOCARDIAL INFARCTION SNOMED Code(s): 1529765 (12) Peripheral artery disease Current Visit: Yes Status: Chronic Code(s): I73.9 - PERIPHERAL VASCULAR DISEASE, UNSPECIFIED SNOMED Code(s): 399717151 (13) On home O2 Current Visit: Yes Status: Chronic Code(s): Z99.81 - DEPENDENCE ON SUPPLEMENTAL OXYGEN SNOMED Code(s): 950384578398 (14) History of breast cancer Current Visit: No Status: Resolved Code(s): Z85.3 - PERSONAL HISTORY OF MALIGNANT NEOPLASM OF BREAST SNOMED Code(s): 266452977 (15) History of chemotherapy Current Visit: No Status: Resolved Code(s): Z92.21 - PERSONAL HISTORY OF ANTINEOPLASTIC CHEMOTHERAPY SNOMED Code(s): 858273131289286 (16) History of right mastectomy Current Visit: No Status: Resolved Code(s): Z90.11 - ACQUIRED ABSENCE OF RIGHT BREAST AND NIPPLE SNOMED Code(s): 876719730 (17) Tobacco dependence in remission Current Visit: No Status: Resolved Code(s): F17.201 - NICOTINE DEPENDENCE, UNSPECIFIED, IN REMISSION SNOMED Code(s): 949740182 Plan: 1. Continue aspirin, statin, Plavix. Will hold beta gregg therapy for now due to underlying rhythm, we will resume when able. 2. Wean O2 as tolerated. Encourage incentive spirometry 10 times every hour while awake. 3. Bronchodilators, inhaled steroids per pulmonology. 4. Increase activity, out of bed to chair, ambulate as tolerated. PT/OT/ cardiac rehab following. 5. Wean Cleviprex as tolerated. Discontinue IV nitro. Will add low dose AMANDA inhibitor. 6. Discontinue [place]. Cannot [place] to continue CVP monitoring. 7. Will monitor daily labs and x-rays. Electrolyte replacement per protocol. No transfusion at this point. 8. Pain control with current medication regimen. Toradol added. 9. Insulin management per primary care service. 10. GI prophylaxis with Protonix, DVT prophylaxis with subcu heparin, SCDs. 11. Encourage continued smoking cessation. 12. Will add home medications. 13. More recommendations to follow. Time with Patient: Greater than 30
[2018-07-08] MEDS: IPRATROPIUM-ALBUTEROL 3 ML NEB INHALATION SCH ×4 (07:44→19:58)
[2018-07-08] MEDS: HEPARIN SODIUM,PORCINE 5,000 UNIT/ML 1 ML VIAL SQ SCH ×2 (08:58→17:39)
[2018-07-08] MEDS: ASPIRIN 325 MG TAB PO SCH (08:59)
[2018-07-08] MEDS: MULTIVITAMINS, THERA 1 EACH TAB PO SCH (08:59)
[2018-07-08] MEDS: ATORVASTATIN 40 MG TAB PO SCH (08:59)
[2018-07-08] MEDS: ASCORBIC ACID 500 MG TAB PO SCH (08:59)
[2018-07-08] MEDS ORDERED: METOPROLOL TARTRATE 12.5 MG TAB PO SCH (09:00)
[2018-07-08] MEDS: GABAPENTIN 300 MG CAP PO SCH ×3 (09:00→22:07)
[2018-07-08] MEDS: CLOPIDOGREL 75 MG TAB PO SCH (09:00)
[2018-07-08] MEDS ORDERED: PANTOPRAZOLE 40 MG/10 ML VIAL IVP SCH (09:00)
[2018-07-08 09:21] LABS: Glucose,Whole Blood 187 mg/dL (75-99)
[2018-07-08] MEDS: SYMBICORT 160-4.5 MCG INHALER INHALATION SCH ×2 (09:50→19:58)
[2018-07-08 10:34] LABS: Glucose,Whole Blood 134 mg/dL (75-99)
[2018-07-08 11:21] LABS: Glucose,Whole Blood 111 mg/dL (75-99)
[2018-07-08] MEDS: LISINOPRIL 5 MG TAB PO SCH (11:21)
[2018-07-08] MEDS: MUPIROCIN 2% OINT 22 GM TUBE NASAL SCH ×2 (11:26→21:56)
[2018-07-08] MEDS: CHOLECALCIFEROL 1,000 UNIT TAB PO SCH (11:30)
--- NOTE | 2018-07-08 11:58 | P.PN ---
Subjective Progress Note Date: 07/08/18 (Delayed charting seen at 1000) Principal diagnosis: dyspnea Patient is a 73-year-old female with a past medical history of COPD, multivessel coronary artery disease and severe mitral regurg, breast cancer, hypothyroidism, prediabetes and vitamin D deficiency who presented for elective cardiac bypass surgery. On 07/07 she underwent [address] Marks. She underwent LIU to the LAD, SVG to the first and second obtuse marginal as well as the RCA. She had mitral valve annuloplasty and ligation of the left atrial appendage. Intraoperatively she received 2 units of packed red blood cells, 1 unit of FFP, and 1 unit of platelets. She subsequently was admitted to the ICU. Extubated on 07/07. Patient seen and examined at bedside. No shortness of breath or nausea. Having some chest pain. Still feeling slightly sedated. No constipation Objective - Vital Signs Vital signs: Vital Signs Temp 98.2 F 07/08/18 04:00 Pulse 69 07/08/18 11:24 Resp 14 07/08/18 11:24 BP 116/61 07/08/18 06:00 Pulse Ox 99 07/08/18 11:00 Intake & Output 07/07/18 07/08/18 07/08/18 18:59 06:59 18:59 Intake Total 1865.083 937.484 285.867 Output Total 2707 1855 485 Balance -841.917 -917.516 -199.133 Weight 80.8 kg Intake: IV 457.5 876.0 282 CARDIAC OUTPUT 150 150 Insulin Regular 100 unit 2.5 In Sodium Chloride 0.9% 100 ml @ Per Protocol IV .Q0M [facility] Rx#:[id number] Lactated Ringers 1,000 ml 200 600 240 @ 20 mls/hr IV .Q24H [facility] Rx#:[id number] Nitroglycerin-D5w Pmx 50 6.0 18.0 mg In Dextrose/Water 1 250ml.bag @ 5 MCG/MIN 1.5 mls/hr IV .Q24H [facility] Rx#: [id number] Norepinephrine 4 mg In 0 Sodium Chloride 0.9% 250 ml @ Titrate IV .Q0M [facility] Rx#:[id number] Pressure Bag (NS) 36 108 42 Intake, IV Titration 11.583 61.484 3.867 Amount Clevidipine Butyrate 25 6.133 40.867 mg In Empty Bag 1 bag @ 1 MG/HR 2 mls/hr IV .Q24H [facility] Rx#:[id number] Insulin Regular 100 unit 5.450 20.617 3.867 In Sodium Chloride 0.9% 100 ml @ Per Protocol IV .Q0M [facility] Rx#:[id number] Blood Product 1396 Ffp 24 Cp2d Unit 245 [id number] Ffp 24 Cp2d Unit 221 [id number] Platelet Pheresis Acda2 310 Unit [id number] Rc As-1 Unit 310 [id number] Rc As-1 Unit 310 [id number] Output: Chest Tube Drainage 302 778 100 Chest Tube Bilateral 116 442 70 Lateral Chest Chest Tube Lower 186 336 30 Mediastinal Urine 1205 1077 385 Estimated Blood Loss 1200 Other: Voiding Method Indwelling Catheter Indwelling Catheter Indwelling Catheter ABP, PAP, CO, CI - Last Documented Arterial Blood Pressure 142/52 Pulmonary Artery Pressure 44/24 Cardiac Output 4.1 Cardiac Index 2.4 - Exam General: ill appearing, mild distress, appears at stated age Derm: warm, dry Head: atraumatic, normocephalic, symmetric Eyes: EOMI, no lid lag, anicteric sclera Mouth: no lip lesion, mucus membranes dry Cardiovascular: S1S2 reg, positive posterior tibial pulse bilateral, Lungs: decresed breath sound bilateral bases, no rhonchi, no rales , no accessory muscle use +chest tube and mediastinal tube Abdominal: soft, nontender to palpation, no guarding, no appreciable organomegaly Ext: no gross muscle atrophy, no edema, no contractures Neuro: CN II-XI grossly intact, no focal neuro deficits Psych: Alert, oriented, appropriate affect - Labs CBC & Chem 7: 07/08/18 03:50 07/08/18 03:50 Labs: Abnormal Lab Results - Last 24 Hours (Table) 07/04/18 07/07/18 07/07/18 Range/Units 08:46 08:35 10:03 WBC (3.8-10.6) k/uL RBC (3.80-5.40) m/uL Hgb (11.4-16.0) gm/dL Hct (34.0-46.0) % RDW (11.5-15.5) % Plt Count (150-450) k/uL Neutrophils # (1.3-7.7) k/uL ABG pH 7.48 H (7.35-7.45) ABG pCO2 (35-45) mmHg ABG pO2 156 H 251 H (83-108) mmHg ABG HCO3 28 H 28 H (21-25) mmol/L ABG Total CO2 29 H 29 H (19-24) mmol/L ABG O2 Saturation 99.4 H 99.7 H (94-97) % ABG Hematocrit 30 L 28 L (34.0-46.0) % ABG Sodium (135-146) mmol/L ABG Potassium (3.4-4.5) mmol/L ABG Ionized Calcium (4.5-5.3) mg/dL ABG Glucose 106 H 129 H (75-99) mg/dL ABG Lactic Acid (0.5-1.6) mmol/L Hemoglobin 9.7 L 9.1 L (11.4-16.0) gm/dL Chloride (98-107) mmol/L BUN (7-17) mg/dL Glucose (74-99) mg/dL POC Glucose (mg/dL) (75-99) mg/dL Calcium (8.4-10.2) mg/dL Magnesium (1.6-2.3) mg/dL AST (14-36) U/L ALT (9-52) U/L Total Protein (6.3-8.2) g/dL Albumin (3.5-5.0) g/dL Arterial Blood Potassium (3.4-4.5) mmol/L Arterial Blood Glucose 106 H 129 H (75-99) mg/dL Crossmatch See Detail 07/07/18 07/07/18 07/07/18 Range/Units 10:58 11:31 12:00 WBC (3.8-10.6) k/uL RBC (3.80-5.40) m/uL Hgb (11.4-16.0) gm/dL Hct (34.0-46.0) % RDW (11.5-15.5) % Plt Count (150-450) k/uL Neutrophils # (1.3-7.7) k/uL ABG pH 7.47 H (7.35-7.45) ABG pCO2 34 L (35-45) mmHg ABG pO2 287 H 272 H 257 H (83-108) mmHg ABG HCO3 (21-25) mmol/L ABG Total CO2 26 H 25 H 26 H (19-24) mmol/L ABG O2 Saturation 99.9 H 100.0 H 99.8 H (94-97) % ABG Hematocrit 16 L* 21 L 20 L* (34.0-46.0) % ABG Sodium 134 L (135-146) mmol/L ABG Potassium 4.7 H 5.3 H 5.2 H (3.4-4.5) mmol/L ABG Ionized Calcium 4.2 L 4.2 L 4.3 L (4.5-5.3) mg/dL ABG Glucose 111 H 144 H 131 H (75-99) mg/dL ABG Lactic Acid 2.1 H 1.7 H (0.5-1.6) mmol/L Hemoglobin 5.3 L* 6.8 L* 6.6 L* (11.4-16.0) gm/dL Chloride (98-107) mmol/L BUN (7-17) mg/dL Glucose (74-99) mg/dL POC Glucose (mg/dL) (75-99) mg/dL Calcium (8.4-10.2) mg/dL Magnesium (1.6-2.3) mg/dL AST (14-36) U/L ALT (9-52) U/L Total Protein (6.3-8.2) g/dL Albumin (3.5-5.0) g/dL Arterial Blood Potassium 4.7 H 5.3 H 5.2 H (3.4-4.5) mmol/L Arterial Blood Glucose 111 H 144 H 131 H (75-99) mg/dL Crossmatch 07/07/18 07/07/18 07/07/18 Range/Units 12:31 13:37 15:05 WBC 15.4 H (3.8-10.6) k/uL RBC 2.44 L (3.80-5.40) m/uL Hgb 8.0 L D (11.4-16.0) gm/dL Hct 24.4 L (34.0-46.0) % RDW 17.4 H (11.5-15.5) % Plt Count (150-450) k/uL Neutrophils # 13.4 H (1.3-7.7) k/uL ABG pH 7.29 L 7.32 L (7.35-7.45) ABG pCO2 49 H (35-45) mmHg ABG pO2 379 H 360 H (83-108) mmHg ABG HCO3 (21-25) mmol/L ABG Total CO2 25 H (19-24) mmol/L ABG O2 Saturation 100.0 H 100.0 H (94-97) % ABG Hematocrit 24 L 24 L (34.0-46.0) % ABG Sodium (135-146) mmol/L ABG Potassium 5.6 H 4.8 H (3.4-4.5) mmol/L ABG Ionized Calcium 4.1 L (4.5-5.3) mg/dL ABG Glucose 145 H 151 H (75-99) mg/dL ABG Lactic Acid 2.0 H 3.6 H* (0.5-1.6) mmol/L Hemoglobin 7.7 L 8.0 L (11.4-16.0) gm/dL Chloride (98-107) mmol/L BUN (7-17) mg/dL Glucose (74-99) mg/dL POC Glucose (mg/dL) (75-99) mg/dL Calcium (8.4-10.2) mg/dL Magnesium (1.6-2.3) mg/dL AST (14-36) U/L ALT (9-52) U/L Total Protein (6.3-8.2) g/dL Albumin (3.5-5.0) g/dL Arterial Blood Potassium 5.6 H 4.8 H (3.4-4.5) mmol/L Arterial Blood Glucose 145 H 151 H (75-99) mg/dL Crossmatch 07/07/18 07/07/18 07/07/18 Range/Units 15:05 15:08 15:29 WBC (3.8-10.6) k/uL RBC (3.80-5.40) m/uL Hgb (11.4-16.0) gm/dL Hct (34.0-46.0) % RDW (11.5-15.5) % Plt Count (150-450) k/uL Neutrophils # (1.3-7.7) k/uL ABG pH (7.35-7.45) ABG pCO2 (35-45) mmHg ABG pO2 210 H (83-108) mmHg ABG HCO3 (21-25) mmol/L ABG Total CO2 26 H (19-24) mmol/L ABG O2 Saturation 100.0 H (94-97) % ABG Hematocrit (34.0-46.0) % ABG Sodium (135-146) mmol/L ABG Potassium (3.4-4.5) mmol/L ABG Ionized Calcium (4.5-5.3) mg/dL ABG Glucose (75-99) mg/dL ABG Lactic Acid (0.5-1.6) mmol/L Hemoglobin (11.4-16.0) gm/dL Chloride 108 H (98-107) mmol/L BUN 24 H (7-17) mg/dL Glucose 155 H (74-99) mg/dL POC Glucose (mg/dL) 160 H (75-99) mg/dL Calcium 8.0 L (8.4-10.2) mg/dL Magnesium 4.2 H (1.6-2.3) mg/dL AST 169 H (14-36) U/L ALT 106 H (9-52) U/L Total Protein 4.8 L (6.3-8.2) g/dL Albumin 2.5 L (3.5-5.0) g/dL Arterial Blood Potassium (3.4-4.5) mmol/L Arterial Blood Glucose (75-99) mg/dL Crossmatch 07/07/18 07/07/18 07/07/18 Range/Units 15:49 16:24 17:24 WBC (3.8-10.6) k/uL RBC (3.80-5.40) m/uL Hgb (11.4-16.0) gm/dL Hct (34.0-46.0) % RDW (11.5-15.5) % Plt Count (150-450) k/uL Neutrophils # (1.3-7.7) k/uL ABG pH (7.35-7.45) ABG pCO2 (35-45) mmHg ABG pO2 (83-108) mmHg ABG HCO3 (21-25) mmol/L ABG Total CO2 (19-24) mmol/L ABG O2 Saturation (94-97) % ABG Hematocrit (34.0-46.0) % ABG Sodium (135-146) mmol/L ABG Potassium (3.4-4.5) mmol/L ABG Ionized Calcium (4.5-5.3) mg/dL ABG Glucose (75-99) mg/dL ABG Lactic Acid (0.5-1.6) mmol/L Hemoglobin (11.4-16.0) gm/dL Chloride (98-107) mmol/L BUN (7-17) mg/dL Glucose (74-99) mg/dL POC Glucose (mg/dL) 157 H 143 H 135 H (75-99) mg/dL Calcium (8.4-10.2) mg/dL Magnesium (1.6-2.3) mg/dL AST (14-36) U/L ALT (9-52) U/L Total Protein (6.3-8.2) g/dL Albumin (3.5-5.0) g/dL Arterial Blood Potassium (3.4-4.5) mmol/L Arterial Blood Glucose (75-99) mg/dL Crossmatch 07/07/18 07/07/18 07/07/18 Range/Units 18:04 18:27 19:19 WBC 13.5 H (3.8-10.6) k/uL RBC 2.36 L (3.80-5.40) m/uL Hgb 7.6 L (11.4-16.0) gm/dL Hct 23.2 L (34.0-46.0) % RDW 17.4 H (11.5-15.5) % Plt Count 116 L (150-450) k/uL Neutrophils # 11.4 H (1.3-7.7) k/uL ABG pH (7.35-7.45) ABG pCO2 (35-45) mmHg ABG pO2 (83-108) mmHg ABG HCO3 (21-25) mmol/L ABG Total CO2 (19-24) mmol/L ABG O2 Saturation (94-97) % ABG Hematocrit (34.0-46.0) % ABG Sodium (135-146) mmol/L ABG Potassium (3.4-4.5) mmol/L ABG Ionized Calcium (4.5-5.3) mg/dL ABG Glucose (75-99) mg/dL ABG Lactic Acid (0.5-1.6) mmol/L Hemoglobin (11.4-16.0) gm/dL Chloride (98-107) mmol/L BUN (7-17) mg/dL Glucose (74-99) mg/dL POC Glucose (mg/dL) 140 H 144 H (75-99) mg/dL Calcium (8.4-10.2) mg/dL Magnesium (1.6-2.3) mg/dL AST (14-36) U/L ALT (9-52) U/L Total Protein (6.3-8.2) g/dL Albumin (3.5-5.0) g/dL Arterial Blood Potassium (3.4-4.5) mmol/L Arterial Blood Glucose (75-99) mg/dL Crossmatch 07/07/18 07/07/18 07/07/18 Range/Units 20:31 20:33 21:00 WBC (3.8-10.6) k/uL RBC (3.80-5.40) m/uL Hgb (11.4-16.0) gm/dL Hct (34.0-46.0) % RDW (11.5-15.5) % Plt Count (150-450) k/uL Neutrophils # (1.3-7.7) k/uL ABG pH 7.31 L (7.35-7.45) ABG pCO2 55 H (35-45) mmHg ABG pO2 (83-108) mmHg ABG HCO3 28 H (21-25) mmol/L ABG Total CO2 29 H (19-24) mmol/L ABG O2 Saturation 97.4 H (94-97) % ABG Hematocrit (34.0-46.0) % ABG Sodium (135-146) mmol/L ABG Potassium (3.4-4.5) mmol/L ABG Ionized Calcium (4.5-5.3) mg/dL ABG Glucose (75-99) mg/dL ABG Lactic Acid (0.5-1.6) mmol/L Hemoglobin (11.4-16.0) gm/dL Chloride (98-107) mmol/L BUN 26 H (7-17) mg/dL Glucose 131 H (74-99) mg/dL POC Glucose (mg/dL) 153 H (75-99) mg/dL Calcium 7.7 L (8.4-10.2) mg/dL Magnesium (1.6-2.3) mg/dL AST (14-36) U/L ALT (9-52) U/L Total Protein (6.3-8.2) g/dL Albumin (3.5-5.0) g/dL Arterial Blood Potassium (3.4-4.5) mmol/L Arterial Blood Glucose (75-99) mg/dL Crossmatch 07/07/18 07/07/18 07/07/18 Range/Units 21:00 21:06 22:05 WBC (3.8-10.6) k/uL RBC 2.28 L (3.80-5.40) m/uL Hgb 7.2 L (11.4-16.0) gm/dL Hct 22.4 L (34.0-46.0) % RDW 17.8 H (11.5-15.5) % Plt Count 122 L (150-450) k/uL Neutrophils # 8.6 H (1.3-7.7) k/uL ABG pH (7.35-7.45) ABG pCO2 (35-45) mmHg ABG pO2 (83-108) mmHg ABG HCO3 (21-25) mmol/L ABG Total CO2 (19-24) mmol/L ABG O2 Saturation (94-97) % ABG Hematocrit (34.0-46.0) % ABG Sodium (135-146) mmol/L ABG Potassium (3.4-4.5) mmol/L ABG Ionized Calcium (4.5-5.3) mg/dL ABG Glucose (75-99) mg/dL ABG Lactic Acid (0.5-1.6) mmol/L Hemoglobin (11.4-16.0) gm/dL Chloride (98-107) mmol/L BUN (7-17) mg/dL Glucose (74-99) mg/dL POC Glucose (mg/dL) 153 H 139 H (75-99) mg/dL Calcium (8.4-10.2) mg/dL Magnesium (1.6-2.3) mg/dL AST (14-36) U/L ALT (9-52) U/L Total Protein (6.3-8.2) g/dL Albumin (3.5-5.0) g/dL Arterial Blood Potassium (3.4-4.5) mmol/L Arterial Blood Glucose (75-99) mg/dL Crossmatch 07/07/18 07/07/18 07/08/18 Range/Units 23:02 23:39 00:09 WBC (3.8-10.6) k/uL RBC (3.80-5.40) m/uL Hgb (11.4-16.0) gm/dL Hct (34.0-46.0) % RDW (11.5-15.5) % Plt Count (150-450) k/uL Neutrophils # (1.3-7.7) k/uL ABG pH (7.35-7.45) ABG pCO2 50 H (35-45) mmHg ABG pO2 (83-108) mmHg ABG HCO3 28 H (21-25) mmol/L ABG Total CO2 30 H (19-24) mmol/L ABG O2 Saturation 98.3 H (94-97) % ABG Hematocrit (34.0-46.0) % ABG Sodium (135-146) mmol/L ABG Potassium (3.4-4.5) mmol/L ABG Ionized Calcium (4.5-5.3) mg/dL ABG Glucose (75-99) mg/dL ABG Lactic Acid (0.5-1.6) mmol/L Hemoglobin (11.4-16.0) gm/dL Chloride (98-107) mmol/L BUN (7-17) mg/dL Glucose (74-99) mg/dL POC Glucose (mg/dL) 119 H 111 H (75-99) mg/dL Calcium (8.4-10.2) mg/dL Magnesium (1.6-2.3) mg/dL AST (14-36) U/L ALT (9-52) U/L Total Protein (6.3-8.2) g/dL Albumin (3.5-5.0) g/dL Arterial Blood Potassium (3.4-4.5) mmol/L Arterial Blood Glucose (75-99) mg/dL Crossmatch 07/08/18 07/08/18 07/08/18 Range/Units 01:04 02:24 03:01 WBC (3.8-10.6) k/uL RBC (3.80-5.40) m/uL Hgb (11.4-16.0) gm/dL Hct (34.0-46.0) % RDW (11.5-15.5) % Plt Count (150-450) k/uL Neutrophils # (1.3-7.7) k/uL ABG pH (7.35-7.45) ABG pCO2 (35-45) mmHg ABG pO2 (83-108) mmHg ABG HCO3 (21-25) mmol/L ABG Total CO2 (19-24) mmol/L ABG O2 Saturation (94-97) % ABG Hematocrit (34.0-46.0) % ABG Sodium (135-146) mmol/L ABG Potassium (3.4-4.5) mmol/L ABG Ionized Calcium (4.5-5.3) mg/dL ABG Glucose (75-99) mg/dL ABG Lactic Acid (0.5-1.6) mmol/L Hemoglobin (11.4-16.0) gm/dL Chloride (98-107) mmol/L BUN (7-17) mg/dL Glucose (74-99) mg/dL POC Glucose (mg/dL) 133 H 124 H 117 H (75-99) mg/dL Calcium (8.4-10.2) mg/dL Magnesium (1.6-2.3) mg/dL AST (14-36) U/L ALT (9-52) U/L Total Protein (6.3-8.2) g/dL Albumin (3.5-5.0) g/dL Arterial Blood Potassium (3.4-4.5) mmol/L Arterial Blood Glucose (75-99) mg/dL Crossmatch 07/08/18 07/08/18 07/08/18 Range/Units 03:50 03:50 03:58 WBC (3.8-10.6) k/uL RBC 2.37 L (3.80-5.40) m/uL Hgb 7.6 L (11.4-16.0) gm/dL Hct 23.4 L (34.0-46.0) % RDW 17.5 H (11.5-15.5) % Plt Count 135 L (150-450) k/uL Neutrophils # 8.1 H (1.3-7.7) k/uL ABG pH (7.35-7.45) ABG pCO2 (35-45) mmHg ABG pO2 (83-108) mmHg ABG HCO3 (21-25) mmol/L ABG Total CO2 (19-24) mmol/L ABG O2 Saturation (94-97) % ABG Hematocrit (34.0-46.0) % ABG Sodium (135-146) mmol/L ABG Potassium (3.4-4.5) mmol/L ABG Ionized Calcium (4.5-5.3) mg/dL ABG Glucose (75-99) mg/dL ABG Lactic Acid (0.5-1.6) mmol/L Hemoglobin (11.4-16.0) gm/dL Chloride (98-107) mmol/L BUN 27 H (7-17) mg/dL Glucose 107 H (74-99) mg/dL POC Glucose (mg/dL) 111 H (75-99) mg/dL Calcium 7.8 L (8.4-10.2) mg/dL Magnesium 3.4 H (1.6-2.3) mg/dL AST 149 H (14-36) U/L ALT 87 H (9-52) U/L Total Protein 5.2 L (6.3-8.2) g/dL Albumin 3.0 L (3.5-5.0) g/dL Arterial Blood Potassium (3.4-4.5) mmol/L Arterial Blood Glucose (75-99) mg/dL Crossmatch 07/08/18 07/08/18 07/08/18 Range/Units 05:06 06:01 07:00 WBC (3.8-10.6) k/uL RBC (3.80-5.40) m/uL Hgb (11.4-16.0) gm/dL Hct (34.0-46.0) % RDW (11.5-15.5) % Plt Count (150-450) k/uL Neutrophils # (1.3-7.7) k/uL ABG pH (7.35-7.45) ABG pCO2 (35-45) mmHg ABG pO2 (83-108) mmHg ABG HCO3 (21-25) mmol/L ABG Total CO2 (19-24) mmol/L ABG O2 Saturation (94-97) % ABG Hematocrit (34.0-46.0) % ABG Sodium (135-146) mmol/L ABG Potassium (3.4-4.5) mmol/L ABG Ionized Calcium (4.5-5.3) mg/dL ABG Glucose (75-99) mg/dL ABG Lactic Acid (0.5-1.6) mmol/L Hemoglobin (11.4-16.0) gm/dL Chloride (98-107) mmol/L BUN (7-17) mg/dL Glucose (74-99) mg/dL POC Glucose (mg/dL) 130 H 127 H 71 L (75-99) mg/dL Calcium (8.4-10.2) mg/dL Magnesium (1.6-2.3) mg/dL AST (14-36) U/L ALT (9-52) U/L Total Protein (6.3-8.2) g/dL Albumin (3.5-5.0) g/dL Arterial Blood Potassium (3.4-4.5) mmol/L Arterial Blood Glucose (75-99) mg/dL Crossmatch 07/08/18 07/08/18 07/08/18 Range/Units 07:01 07:02 09:18 WBC (3.8-10.6) k/uL RBC (3.80-5.40) m/uL Hgb (11.4-16.0) gm/dL Hct (34.0-46.0) % RDW (11.5-15.5) % Plt Count (150-450) k/uL Neutrophils # (1.3-7.7) k/uL ABG pH (7.35-7.45) ABG pCO2 (35-45) mmHg ABG pO2 (83-108) mmHg ABG HCO3 (21-25) mmol/L ABG Total CO2 (19-24) mmol/L ABG O2 Saturation (94-97) % ABG Hematocrit (34.0-46.0) % ABG Sodium (135-146) mmol/L ABG Potassium (3.4-4.5) mmol/L ABG Ionized Calcium (4.5-5.3) mg/dL ABG Glucose (75-99) mg/dL ABG Lactic Acid (0.5-1.6) mmol/L Hemoglobin (11.4-16.0) gm/dL Chloride (98-107) mmol/L BUN (7-17) mg/dL Glucose (74-99) mg/dL POC Glucose (mg/dL) 70 L 109 H 187 H (75-99) mg/dL Calcium (8.4-10.2) mg/dL Magnesium (1.6-2.3) mg/dL AST (14-36) U/L ALT (9-52) U/L Total Protein (6.3-8.2) g/dL Albumin (3.5-5.0) g/dL Arterial Blood Potassium (3.4-4.5) mmol/L Arterial Blood Glucose (75-99) mg/dL Crossmatch 07/08/18 07/08/18 Range/Units 10:30 11:17 WBC (3.8-10.6) k/uL RBC (3.80-5.40) m/uL Hgb (11.4-16.0) gm/dL Hct (34.0-46.0) % RDW (11.5-15.5) % Plt Count (150-450) k/uL Neutrophils # (1.3-7.7) k/uL ABG pH (7.35-7.45) ABG pCO2 (35-45) mmHg ABG pO2 (83-108) mmHg ABG HCO3 (21-25) mmol/L ABG Total CO2 (19-24) mmol/L ABG O2 Saturation (94-97) % ABG Hematocrit (34.0-46.0) % ABG Sodium (135-146) mmol/L ABG Potassium (3.4-4.5) mmol/L ABG Ionized Calcium (4.5-5.3) mg/dL ABG Glucose (75-99) mg/dL ABG Lactic Acid (0.5-1.6) mmol/L Hemoglobin (11.4-16.0) gm/dL Chloride (98-107) mmol/L BUN (7-17) mg/dL Glucose (74-99) mg/dL POC Glucose (mg/dL) 134 H 111 H (75-99) mg/dL Calcium (8.4-10.2) mg/dL Magnesium (1.6-2.3) mg/dL AST (14-36) U/L ALT (9-52) U/L Total Protein (6.3-8.2) g/dL Albumin (3.5-5.0) g/dL Arterial Blood Potassium (3.4-4.5) mmol/L Arterial Blood Glucose (75-99) mg/dL Crossmatch Assessment and Plan Assessment: Patient is a 73 yo CF here with 5 vessel CABG Prediabetes - A1C 5.9 06/24, down from 6.3 - Insulin gtt transfer to SSI and follow BS - follow BS Hypothyroidism - Not currently on medications at home. - TSH 1.47 in Jun 2018 Acute blood loss anemia, anticipated outcome of surgery - repeat CBC in AM - stable - suggest oral iron on D/C patient had vomiting overnight Elevated liver enzymes, mild, improving - repeat CMP in AM CAD and mitral regurg s/p CABG and mitral valve annuloplasty - management per primary team COPD without exacerbation - Pulm recs - Bronchodilators - pulmonary hygiene CHronic Vit D Deficiency Scoliosis Carotid arterial disease Thank you for allowing us to participate in the care of this patient. Do not hesitate to contact us with questions. Someone can be reached from the [facility] hospitalist group at all hours of the day at [phone].
[2018-07-08 12:20] LABS: Glucose,Whole Blood 120 mg/dL (75-99)
--- NOTE | 2018-07-08 13:04 | P.CNPUL ---
History of Present Illness Consult date: 07/08/18 Requesting physician: Nathaniel Marks Reason for consult: other (Status post CABG and mitral valve repair, admitted to the ICU on mechanical ventilation.) Chief complaint: Status post CABG and mitral valve annuloplasty. History of present illness: This is a 73-year-old female with known history of COPD, Gold stage II, FEV1 is 63%. usually sees Dr. Perez, she is mostly on oxygen at night. Patient was recently found to have multivessel coronary artery disease and severe mitral regurgitation. She was cleared by Dr. Perez for surgery based on her PFTs done in the office, and on 07/07/2018, patient underwent multivessel myocardial revascularization, she underwent five-vessel bypass surgery, with LIU to LAD, SVG to the first and second obtuse marginal as well as the RCA. She also had mitral valve annuloplasty and ligation of left atrial appendage. Postoperatively, patient was on mechanical ventilation, and I was asked to see her on consultation. Her postoperative course was relatively uneventful. She hours after her surgery, I was called about her ventilator settings, her weaning ABG, and initially she was borderline for extubation. Hence we delayed the extubation about 2 hours. As her mental status improved and the patient became more awake, follow-up ABG was done, follow-up trial on pressure support and CPAP was given, patient was extubated uneventfully. Later at night the patient developed some desaturation, chest x-ray showed evidence of interstitial edema, responded to 20 mg of Lasix given and her O2 saturation improved presently on 15 L high flow nasal cannula, patient is not in any distress. Seen this morning, patient is doing well, relatively asymptomatic, and O2 saturation is in the mid 90s on 50% high flow nasal cannula. Review of Systems 14 point review of systems were obtained, please refer to pertinent positives in HPI, otherwise remaining systems are negative. Past Medical History Past Medical History: Coronary Artery Disease (CAD), Cancer, COPD, Hypertension , Myocardial Infarction ([place]), Skin Disorder, Thyroid Disorder Additional Past Medical History / Comment(s): Hx Right Breast cancer with mastectomy, radiation & chemotherapy, scoliosis of the spine, hypothyroidism, vitamin D deficiency. O2 at night 2L per nasal cannula. Recent fatigue and SOB. Hx Psoriasis. Dry Gangrene right 4th toe., Varicose veins., CHESTER and hyperkalemia. Last Myocardial Infarction Date:: 10/2017 History of Any Multi-Drug Resistant Organisms: None Reported Past Surgical History: Breast Surgery, Heart Catheterization Additional Past Surgical History / Comment(s): Right mastectomy. CABG 5 vessel 07/07/18. Past Anesthesia/Blood Transfusion Reactions: No Reported Reaction Additional Past Anesthesia/Blood Transfusion Reaction / Comment(s): NO HX OF BLOOD TRANSFUSION. Past Psychological History: No Psychological Hx Reported Additional Psychological History / Comment(s): ANXIOUS REGARDING SURGERY. Smoking Status: Former smoker Past Alcohol Use History: Occasional Additional Past Alcohol Use History / Comment(s): Quit smoking 1 yr ago (2017), smoked 40 yrs, <1PPD. Past Drug Use History: None Reported - Past Family History Father Family Medical History: Coronary Artery Disease (CAD), CVA/TIA, Hypertension, Myocardial Infarction ([place]) Mother Family Medical History: Coronary Artery Disease (CAD), CVA/TIA, Diabetes Mellitus, Hypertension, Myocardial Infarction ([place]) Additional Family Medical History / Comment(s): pace maker Medications and Allergies Home Medications Medication Instructions Recorded Confirmed Type Ascorbic Acid [Vitamin C] 1,000 mg PO DAILY 10/23/17 07/07/18 History Cholecalciferol [Vitamin D3] 1,000 unit PO DAILY 10/23/17 07/07/18 History Multivitamins, Thera [Multivitamin 1 tab PO DAILY 10/23/17 07/07/18 History (formulary)] Vitamin B Complex 1 cap PO DAILY 10/23/17 07/07/18 History Atorvastatin [Lipitor] 40 mg PO DAILY #30 tab 10/29/17 07/07/18 Rx Budesonide-Formot 160-4.5 Mcg 2 puff INHALATION RT-BID #1 inhaler 10/29/1707/07 Rx [Symbicort 160-4.5 Mcg Inhaler] Nitroglycerin Sl Tabs [Nitrostat] 0.4 mg SUBLINGUAL Q5M PRN #7 tab 10/29/17 Rx Albuterol Inhaler [Ventolin Hfa 1 - 2 puff INHALATION RT-Q6H PRN 12/17/17 History Inhaler] Carvedilol [Coreg] 12.5 mg PO BID-W/MEALS 12/17/17 07/07/18 History Furosemide [Lasix] 20 mg PO DAILY 06/16/18 07/07/18 History Gabapentin [Neurontin] 300 mg PO TID 06/16/18 07/07/18 History hydrALAZINE HCL 25 mg PO BID-W/MEALS 06/16/18 07/07/18 History Aspirin 81 mg PO HS 06/18/18 07/07/18 History Acetaminophen [Tylenol Extra 500 mg PO DAILY PRN 06/23/18 07/07/18 History Strength] Benzonatate [Benzonatate Perle] 100 mg PO TID 07/02/18 07/07/18 History Levofloxacin [Levaquin] 500 mg PO DAILY 07/02/18 07/07/18 History Mupirocin 2% Oint [Bactroban 2% 1 applic NASAL BID 07/04/18 07/07/18 History Oint] Allergies Allergy/AdvReac Type Severity Reaction Status Date / Time morphine AdvReac Hallucinati Verified 07/07/18 15:23 ons Physical Exam Vitals: Vital Signs Temp Pulse Pulse Resp BP Pulse Ox 07/08/18 11:37 69 20 07/08/18 11:24 69 14 07/08/18 11:00 69 14 99 07/08/18 10:30 69 19 96 07/08/18 10:00 69 19 99 07/08/18 09:30 70 23 95 07/08/18 09:00 69 21 92 L 07/08/18 08:30 69 22 91 L 07/08/18 08:00 70 20 92 L 07/08/18 07:45 69 07/08/18 07:30 69 16 93 L 07/08/18 07:00 69 14 94 L 07/08/18 06:30 80 15 91 L 07/08/18 06:00 80 17 116/61 96 07/08/18 05:30 80 15 116/61 96 07/08/18 05:00 80 18 94 L 07/08/18 04:30 80 16 95 07/08/18 04:00 98.2 F 80 80 14 106/54 96 07/08/18 03:30 80 16 106/54 95 07/08/18 03:00 80 17 110/44 99 07/08/18 02:30 80 15 110/44 100 07/08/18 02:00 80 24 123/51 78 L 07/08/18 01:30 80 18 123/51 96 07/08/18 01:00 80 17 130/55 97 07/08/18 00:30 80 19 130/55 98 07/08/18 00:00 98.2 F 80 80 15 127/56 95 07/07/18 23:30 80 22 127/56 97 07/07/18 23:23 80 21 127/56 98 07/07/18 23:00 80 18 118/53 98 07/07/18 22:30 80 11 L 118/53 98 07/07/18 22:00 80 18 109/49 98 07/07/18 21:30 80 20 109/49 99 07/07/18 21:00 80 13 99/48 98 07/07/18 20:55 80 07/07/18 20:44 80 07/07/18 20:30 97.0 F L 80 24 99/48 96 07/07/18 20:00 80 80 13 98/66 95 07/07/18 19:30 80 12 98/66 97 07/07/18 19:00 80 12 93/50 89 L 07/07/18 18:30 80 13 90 L 07/07/18 18:00 80 17 96 07/07/18 17:30 80 12 93 L 07/07/18 17:00 80 12 94 L 07/07/18 16:45 80 12 96 07/07/18 16:30 80 12 98 07/07/18 16:15 80 12 99 07/07/18 16:04 80 07/07/18 16:00 80 80 20 100 07/07/18 15:57 80 07/07/18 15:45 80 12 99 07/07/18 15:30 70 11 L 98 07/07/18 15:15 80 12 99 07/07/18 15:10 80 12 98 07/07/18 15:05 35.6 F L 80 12 99 07/07/18 14:56 80 12 99 Intake and Output 07/07/18 07/08/18 07/08/18 22:59 06:59 14:59 Intake Total 716.250 627.317 301.101 Output Total 1257 1430 485 Balance -540.750 -802.683 -183.899 Intake: IV 696.5 574.0 282 CARDIAC OUTPUT 210 90 Insulin Regular 100 unit 2.5 In Sodium Chloride 0.9% 100 ml @ Per Protocol IV .Q0M BETSY Rx#:[id number] Lactated Ringers 1,000 ml 400 400 240 @ 20 mls/hr IV .Q24H BETSY Rx#:[id number] Nitroglycerin-D5w Pmx 50 12.0 12.0 mg In Dextrose/Water 1 250ml.bag @ 5 MCG/MIN 1.5 mls/hr IV .Q24H BETSY Rx#: [id number] Norepinephrine 4 mg In 0 Sodium Chloride 0.9% 250 ml @ Titrate IV .Q0M BETSY Rx#:[id number] Pressure Bag (NS) 72 72 42 Intake, IV Titration 19.750 53.317 19.101 Amount Clevidipine Butyrate 25 6.133 40.867 15.234 mg In Empty Bag 1 bag @ 1 MG/HR 2 mls/hr IV .Q24H BETSY Rx#:[id number] Insulin Regular 100 unit 13.617 12.450 3.867 In Sodium Chloride 0.9% 100 ml @ Per Protocol IV .Q0M BETSY Rx#:[id number] Output: Chest Tube Drainage 560 520 100 Chest Tube Bilateral 198 360 70 Lateral Chest Chest Tube Lower 362 160 30 Mediastinal Urine 697 910 385 Other: Voiding Method Indwelling Catheter Indwelling Catheter Indwelling Catheter Weight 80.8 kg ABP, PAP, CO, CI - Last 8 Hours Arterial Blood Pressure 142/52 Arterial Blood Pressure 140/55 Arterial Blood Pressure 132/53 Arterial Blood Pressure 137/55 Arterial Blood Pressure 124/52 Arterial Blood Pressure 126/51 Arterial Blood Pressure 130/52 Arterial Blood Pressure 125/54 Arterial Blood Pressure 134/56 Arterial Blood Pressure 122/51 Arterial Blood Pressure 132/58 Arterial Blood Pressure 165/63 Arterial Blood Pressure 115/50 Pulmonary Artery Pressure 44/24 Pulmonary Artery Pressure 43/23 Pulmonary Artery Pressure 41/23 Pulmonary Artery Pressure 44/22 Pulmonary Artery Pressure 45/24 Pulmonary Artery Pressure 42/24 Pulmonary Artery Pressure 40/22 Pulmonary Artery Pressure 42/25 Pulmonary Artery Pressure 39/21 Pulmonary Artery Pressure 44/24 Pulmonary Artery Pressure 36/19 Cardiac Output 4.1 Cardiac Output 4.1 Cardiac Output 4.1 Cardiac Output 4.1 Cardiac Output 4.1 Cardiac Output 4.1 Cardiac Output 4.1 Physical Exam: Revealed a 73-year-old female in no distress, on high flow nasal cannula. Head: Atraumatic, normocephalic. HEENT:[Neck is supple.] [No neck masses.] [No thyromegaly.] [No JVD.] PERRLA, EOMI, no icterus. Chest: [Diminished breath sounds and crackles at the bases. Chest tubes and mediastinal tube noted. Cardiac Exam: [Normal S1 and S2, no S3 gallop, no murmur.] Abdomen: [Soft, nontender, no megaly, no rebound, no guarding, normal bowel sounds.] Extremities: [No clubbing, no edema, no cyanosis.] Neurological Exam: [No focal neurologic deficit.] Skin: No rashes. Psychiatric: Normal mood affect and mental status examination. Results - Laboratory Findings CBC and BMP: 07/08/18 03:50 07/08/18 03:50 ABG ABG pH 7.36 (7.35-7.45) 07/07/18 23:39 ABG pCO2 50 mmHg (35-45) H 07/07/18 23:39 ABG pO2 101 mmHg (83-108) 07/07/18 23:39 ABG O2 Saturation 98.3 % (94-97) H 07/07/18 23:39 PT/INR, D-dimer PT 10.5 sec (9.0-12.0) 07/08/18 03:50 INR 1.0 (<1.2) 07/08/18 03:50 Abnormal lab findings: Abnormal Labs 07/04/18 07/07/18 07/07/18 08:46 08:35 10:03 WBC RBC Hgb Hct RDW Plt Count Neutrophils # ABG pH 7.48 H ABG pCO2 ABG pO2 156 H 251 H ABG HCO3 28 H 28 H ABG Total CO2 29 H 29 H ABG O2 Saturation 99.4 H 99.7 H ABG Hematocrit 30 L 28 L ABG Sodium ABG Potassium ABG Ionized Calcium ABG Glucose 106 H 129 H ABG Lactic Acid Hemoglobin 9.7 L 9.1 L Chloride BUN Glucose POC Glucose (mg/dL) Calcium Magnesium AST ALT Total Protein Albumin Arterial Blood Potassium Arterial Blood Glucose 106 H 129 H Crossmatch See Detail 07/07/18 07/07/18 07/07/18 10:58 11:31 12:00 WBC RBC Hgb Hct RDW Plt Count Neutrophils # ABG pH 7.47 H ABG pCO2 34 L ABG pO2 287 H 272 H 257 H ABG HCO3 ABG Total CO2 26 H 25 H 26 H ABG O2 Saturation 99.9 H 100.0 H 99.8 H ABG Hematocrit 16 L* 21 L 20 L* ABG Sodium 134 L ABG Potassium 4.7 H 5.3 H 5.2 H ABG Ionized Calcium 4.2 L 4.2 L 4.3 L ABG Glucose 111 H 144 H 131 H ABG Lactic Acid 2.1 H 1.7 H Hemoglobin 5.3 L* 6.8 L* 6.6 L* Chloride BUN Glucose POC Glucose (mg/dL) Calcium Magnesium AST ALT Total Protein Albumin Arterial Blood Potassium 4.7 H 5.3 H 5.2 H Arterial Blood Glucose 111 H 144 H 131 H Crossmatch 07/07/18 07/07/18 07/07/18 12:31 13:37 15:05 WBC 15.4 H RBC 2.44 L Hgb 8.0 L D Hct 24.4 L RDW 17.4 H Plt Count Neutrophils # 13.4 H ABG pH 7.29 L 7.32 L ABG pCO2 49 H ABG pO2 379 H 360 H ABG HCO3 ABG Total CO2 25 H ABG O2 Saturation 100.0 H 100.0 H ABG Hematocrit 24 L 24 L ABG Sodium ABG Potassium 5.6 H 4.8 H ABG Ionized Calcium 4.1 L ABG Glucose 145 H 151 H ABG Lactic Acid 2.0 H 3.6 H* Hemoglobin 7.7 L 8.0 L Chloride BUN Glucose POC Glucose (mg/dL) Calcium Magnesium AST ALT Total Protein Albumin Arterial Blood Potassium 5.6 H 4.8 H Arterial Blood Glucose 145 H 151 H Crossmatch 07/07/18 07/07/18 07/07/18 15:05 15:08 15:29 WBC RBC Hgb Hct RDW Plt Count Neutrophils # ABG pH ABG pCO2 ABG pO2 210 H ABG HCO3 ABG Total CO2 26 H ABG O2 Saturation 100.0 H ABG Hematocrit ABG Sodium ABG Potassium ABG Ionized Calcium ABG Glucose ABG Lactic Acid Hemoglobin Chloride 108 H BUN 24 H Glucose 155 H POC Glucose (mg/dL) 160 H Calcium 8.0 L Magnesium 4.2 H AST 169 H ALT 106 H Total Protein 4.8 L Albumin 2.5 L Arterial Blood Potassium Arterial Blood Glucose Crossmatch 07/07/18 07/07/18 07/07/18 15:49 16:24 17:24 WBC RBC Hgb Hct RDW Plt Count Neutrophils # ABG pH ABG pCO2 ABG pO2 ABG HCO3 ABG Total CO2 ABG O2 Saturation ABG Hematocrit ABG Sodium ABG Potassium ABG Ionized Calcium ABG Glucose ABG Lactic Acid Hemoglobin Chloride BUN Glucose POC Glucose (mg/dL) 157 H 143 H 135 H Calcium Magnesium AST ALT Total Protein Albumin Arterial Blood Potassium Arterial Blood Glucose Crossmatch 07/07/18 07/07/18 07/07/18 18:04 18:27 19:19 WBC 13.5 H RBC 2.36 L Hgb 7.6 L Hct 23.2 L RDW 17.4 H Plt Count 116 L Neutrophils # 11.4 H ABG pH ABG pCO2 ABG pO2 ABG HCO3 ABG Total CO2 ABG O2 Saturation ABG Hematocrit ABG Sodium ABG Potassium ABG Ionized Calcium ABG Glucose ABG Lactic Acid Hemoglobin Chloride BUN Glucose POC Glucose (mg/dL) 140 H 144 H Calcium Magnesium AST ALT Total Protein Albumin Arterial Blood Potassium Arterial Blood Glucose Crossmatch 07/07/18 07/07/18 07/07/18 20:31 20:33 21:00 WBC RBC Hgb Hct RDW Plt Count Neutrophils # ABG pH 7.31 L ABG pCO2 55 H ABG pO2 ABG HCO3 28 H ABG Total CO2 29 H ABG O2 Saturation 97.4 H ABG Hematocrit ABG Sodium ABG Potassium ABG Ionized Calcium ABG Glucose ABG Lactic Acid Hemoglobin Chloride BUN 26 H Glucose 131 H POC Glucose (mg/dL) 153 H Calcium 7.7 L Magnesium AST ALT Total Protein Albumin Arterial Blood Potassium Arterial Blood Glucose Crossmatch 07/07/18 07/07/18 07/07/18 21:00 21:06 22:05 WBC RBC 2.28 L Hgb 7.2 L Hct 22.4 L RDW 17.8 H Plt Count 122 L Neutrophils # 8.6 H ABG pH ABG pCO2 ABG pO2 ABG HCO3 ABG Total CO2 ABG O2 Saturation ABG Hematocrit ABG Sodium ABG Potassium ABG Ionized Calcium ABG Glucose ABG Lactic Acid Hemoglobin Chloride BUN Glucose POC Glucose (mg/dL) 153 H 139 H Calcium Magnesium AST ALT Total Protein Albumin Arterial Blood Potassium Arterial Blood Glucose Crossmatch 07/07/18 07/07/18 07/08/18 23:02 23:39 00:09 WBC RBC Hgb Hct RDW Plt Count Neutrophils # ABG pH ABG pCO2 50 H ABG pO2 ABG HCO3 28 H ABG Total CO2 30 H ABG O2 Saturation 98.3 H ABG Hematocrit ABG Sodium ABG Potassium ABG Ionized Calcium ABG Glucose ABG Lactic Acid Hemoglobin Chloride BUN Glucose POC Glucose (mg/dL) 119 H 111 H Calcium Magnesium AST ALT Total Protein Albumin Arterial Blood Potassium Arterial Blood Glucose Crossmatch 07/08/18 07/08/18 07/08/18 01:04 02:24 03:01 WBC RBC Hgb Hct RDW Plt Count Neutrophils # ABG pH ABG pCO2 ABG pO2 ABG HCO3 ABG Total CO2 ABG O2 Saturation ABG Hematocrit ABG Sodium ABG Potassium ABG Ionized Calcium ABG Glucose ABG Lactic Acid Hemoglobin Chloride BUN Glucose POC Glucose (mg/dL) 133 H 124 H 117 H Calcium Magnesium AST ALT Total Protein Albumin Arterial Blood Potassium Arterial Blood Glucose Crossmatch 07/08/18 07/08/18 07/08/18 03:50 03:50 03:58 WBC RBC 2.37 L Hgb 7.6 L Hct 23.4 L RDW 17.5 H Plt Count 135 L Neutrophils # 8.1 H ABG pH ABG pCO2 ABG pO2 ABG HCO3 ABG Total CO2 ABG O2 Saturation ABG Hematocrit ABG Sodium ABG Potassium ABG Ionized Calcium ABG Glucose ABG Lactic Acid Hemoglobin Chloride BUN 27 H Glucose 107 H POC Glucose (mg/dL) 111 H Calcium 7.8 L Magnesium 3.4 H AST 149 H ALT 87 H Total Protein 5.2 L Albumin 3.0 L Arterial Blood Potassium Arterial Blood Glucose Crossmatch 07/08/18 07/08/18 07/08/18 05:06 06:01 07:00 WBC RBC Hgb Hct RDW Plt Count Neutrophils # ABG pH ABG pCO2 ABG pO2 ABG HCO3 ABG Total CO2 ABG O2 Saturation ABG Hematocrit ABG Sodium ABG Potassium ABG Ionized Calcium ABG Glucose ABG Lactic Acid Hemoglobin Chloride BUN Glucose POC Glucose (mg/dL) 130 H 127 H 71 L Calcium Magnesium AST ALT Total Protein Albumin Arterial Blood Potassium Arterial Blood Glucose Crossmatch 0107/08/18 07/08/18 07:01 07:02 09:18 WBC RBC Hgb Hct RDW Plt Count Neutrophils # ABG pH ABG pCO2 ABG pO2 ABG HCO3 ABG Total CO2 ABG O2 Saturation ABG Hematocrit ABG Sodium ABG Potassium ABG Ionized Calcium ABG Glucose ABG Lactic Acid Hemoglobin Chloride BUN Glucose POC Glucose (mg/dL) 70 L 109 H 187 H Calcium Magnesium AST ALT Total Protein Albumin Arterial Blood Potassium Arterial Blood Glucose Crossmatch 07/08/18 07/08/18 07/08/18 10:30 11:17 12:17 WBC RBC Hgb Hct RDW Plt Count Neutrophils # ABG pH ABG pCO2 ABG pO2 ABG HCO3 ABG Total CO2 ABG O2 Saturation ABG Hematocrit ABG Sodium ABG Potassium ABG Ionized Calcium ABG Glucose ABG Lactic Acid Hemoglobin Chloride BUN Glucose POC Glucose (mg/dL) 134 H 111 H 120 H Calcium Magnesium AST ALT Total Protein Albumin Arterial Blood Potassium Arterial Blood Glucose Crossmatch - Diagnostic Findings Chest x-ray: image reviewed (Suggestive of mild interstitial edema and bilateral pleural effusions with atelectasis.) Assessment and Plan Assessment: Impression: 1 status post CABG, mitral valve annuloplasty, postoperative day #1. 2 bilateral pleural effusions and atelectasis, expected post surgery/CABG. 3 gold stage II COPD, FEV1 63%. Remains on bronchodilators. 4 history of hypothyroidism 5 multiple comorbidities including prediabetes, carotid artery disease, scoliosis, vitamin D deficiency, and acute blood loss anemia, expected post surgery. Recommendation: Continue oxygen at high flow for now, titrate accordingly, continue bronchodilators, continue incentive spirometry, GI and DVT prophylaxis , incentive spirometry, early ambulation, we'll continue to monitor in the ICU, patient is not quite ready for any transfer out of the ICU at this point. We' ll continue to follow. Time with Patient: Greater than 30
[2018-07-08] MEDS ORDERED: BISACODYL 10 MG SUPP RECTAL PRN (14:38)
[2018-07-08] MEDS ORDERED: HYDROcodone/APAP 5-325MG 1 EACH TAB PO PRN (14:38)
[2018-07-08] MEDS: ALBUMIN HUMAN 5% 250 ML in EMPTY BAG 1 BAG IVPB PRN (14:59)
[2018-07-08] MEDS: LACTATED RINGERS 1,000 ML IV SCH (15:01)
--- NOTE | 2018-07-08 15:41 | P.PN ---
Subjective Patient is doing well following coronary artery bypass grafting Extubated Sitting up in a chair sipping water Mild chest discomfort Respirations are fairly stable looks comfortable On examination blood pressure 123/42 mmHg respirations 14-16, pulse rate 70 paced rhythm Reduced breath sounds bilaterally especially at bases Heart sounds are soft Impression coronary artery disease status post coronary artery bypass grafting Vital valve annuloplasty Left atrial appendectomy Plan Continue current medications without any changes from a Objective - Vital Signs Vital signs: Vital Signs Temp 98.1 F 07/08/18 12:00 Pulse 69 07/08/18 15:00 Resp 12 07/08/18 15:00 BP 116/61 07/08/18 06:00 Pulse Ox 98 07/08/18 15:00 Intake & Output 07/07/18 07/08/18 07/08/18 18:59 06:59 18:59 Intake Total 1865.083 937.484 353.101 Output Total 2707 1855 575 Balance -841.917 -917.516 -221.899 Weight 80.8 kg 80.8 kg Intake: IV 457.5 876.0 334 CARDIAC OUTPUT 150 150 Insulin Regular 100 unit 2.5 In Sodium Chloride 0.9% 100 ml @ Per Protocol IV .Q0M BETSY Rx#:[id number] Lactated Ringers 1,000 ml 200 600 280 @ 20 mls/hr IV .Q24H BETSY Rx#:[id number] Nitroglycerin-D5w Pmx 50 6.0 18.0 mg In Dextrose/Water 1 250ml.bag @ 5 MCG/MIN 1.5 mls/hr IV .Q24H BETSY Rx#: [id number] Norepinephrine 4 mg In 0 Sodium Chloride 0.9% 250 ml @ Titrate IV .Q0M BETSY Rx#:[id number] Pressure Bag (NS) 36 108 54 Intake, IV Titration 11.583 61.484 19.101 Amount Clevidipine Butyrate 25 6.133 40.867 15.234 mg In Empty Bag 1 bag @ 1 MG/HR 2 mls/hr IV .Q24H BETSY Rx#:[id number] Insulin Regular 100 unit 5.450 20.617 3.867 In Sodium Chloride 0.9% 100 ml @ Per Protocol IV .Q0M BETSY Rx#:[id number] Blood Product 1396 Ffp 24 Cp2d Unit 245 [id number] Ffp 24 Cp2d Unit 221 [id number] Platelet Pheresis Acda2 310 Unit [id number] Rc As-1 Unit 310 [id number] Rc As-1 Unit 310 [id number] Output: Chest Tube Drainage 302 778 150 Chest Tube Bilateral 116 442 100 Lateral Chest Chest Tube Lower 186 336 50 Mediastinal Urine 1205 1077 425 Estimated Blood Loss 1200 Other: Voiding Method Indwelling Catheter Indwelling Catheter Indwelling Catheter ABP, PAP, CO, CI - Last Documented Arterial Blood Pressure 123/42 Pulmonary Artery Pressure 44/24 Cardiac Output 4.1 Cardiac Index 2.4 - Labs CBC & Chem 7: 07/08/18 03:50 07/08/18 03:50 Labs: Abnormal Lab Results - Last 24 Hours (Table) 07/04/18 07/07/18 07/07/18 Range/Units 08:46 15:49 16:24 WBC (3.8-10.6) k/uL RBC (3.80-5.40) m/uL Hgb (11.4-16.0) gm/dL Hct (34.0-46.0) % RDW (11.5-15.5) % Plt Count (150-450) k/uL Neutrophils # (1.3-7.7) k/uL ABG pH (7.35-7.45) ABG pCO2 (35-45) mmHg ABG HCO3 (21-25) mmol/L ABG Total CO2 (19-24) mmol/L ABG O2 Saturation (94-97) % BUN (7-17) mg/dL Glucose (74-99) mg/dL POC Glucose (mg/dL) 157 H 143 H (75-99) mg/dL Calcium (8.4-10.2) mg/dL Magnesium (1.6-2.3) mg/dL AST (14-36) U/L ALT (9-52) U/L Total Protein (6.3-8.2) g/dL Albumin (3.5-5.0) g/dL Crossmatch See Detail 07/07/18 07/07/18 07/07/18 Range/Units 17:24 18:04 18:27 WBC 13.5 H (3.8-10.6) k/uL RBC 2.36 L (3.80-5.40) m/uL Hgb 7.6 L (11.4-16.0) gm/dL Hct 23.2 L (34.0-46.0) % RDW 17.4 H (11.5-15.5) % Plt Count 116 L (150-450) k/uL Neutrophils # 11.4 H (1.3-7.7) k/uL ABG pH (7.35-7.45) ABG pCO2 (35-45) mmHg ABG HCO3 (21-25) mmol/L ABG Total CO2 (19-24) mmol/L ABG O2 Saturation (94-97) % BUN (7-17) mg/dL Glucose (74-99) mg/dL POC Glucose (mg/dL) 135 H 140 H (75-99) mg/dL Calcium (8.4-10.2) mg/dL Magnesium (1.6-2.3) mg/dL AST (14-36) U/L ALT (9-52) U/L Total Protein (6.3-8.2) g/dL Albumin (3.5-5.0) g/dL Crossmatch 07/07/18 07/07/18 07/07/18 Range/Units 19:19 20:31 20:33 WBC (3.8-10.6) k/uL RBC (3.80-5.40) m/uL Hgb (11.4-16.0) gm/dL Hct (34.0-46.0) % RDW (11.5-15.5) % Plt Count (150-450) k/uL Neutrophils # (1.3-7.7) k/uL ABG pH 7.31 L (7.35-7.45) ABG pCO2 55 H (35-45) mmHg ABG HCO3 28 H (21-25) mmol/L ABG Total CO2 29 H (19-24) mmol/L ABG O2 Saturation 97.4 H (94-97) % BUN (7-17) mg/dL Glucose (74-99) mg/dL POC Glucose (mg/dL) 144 H 153 H (75-99) mg/dL Calcium (8.4-10.2) mg/dL Magnesium (1.6-2.3) mg/dL AST (14-36) U/L ALT (9-52) U/L Total Protein (6.3-8.2) g/dL Albumin (3.5-5.0) g/dL Crossmatch 07/07/18 07/07/18 07/07/18 Range/Units 21:00 21:00 21:06 WBC (3.8-10.6) k/uL RBC 2.28 L (3.80-5.40) m/uL Hgb 7.2 L (11.4-16.0) gm/dL Hct 22.4 L (34.0-46.0) % RDW 17.8 H (11.5-15.5) % Plt Count 122 L (150-450) k/uL Neutrophils # 8.6 H (1.3-7.7) k/uL ABG pH (7.35-7.45) ABG pCO2 (35-45) mmHg ABG HCO3 (21-25) mmol/L ABG Total CO2 (19-24) mmol/L ABG O2 Saturation (94-97) % BUN 26 H (7-17) mg/dL Glucose 131 H (74-99) mg/dL POC Glucose (mg/dL) 153 H (75-99) mg/dL Calcium 7.7 L (8.4-10.2) mg/dL Magnesium (1.6-2.3) mg/dL AST (14-36) U/L ALT (9-52) U/L Total Protein (6.3-8.2) g/dL Albumin (3.5-5.0) g/dL Crossmatch 07/07/18 07/07/18 07/07/18 Range/Units 22:05 23:02 23:39 WBC (3.8-10.6) k/uL RBC (3.80-5.40) m/uL Hgb (11.4-16.0) gm/dL Hct (34.0-46.0) % RDW (11.5-15.5) % Plt Count (150-450) k/uL Neutrophils # (1.3-7.7) k/uL ABG pH (7.35-7.45) ABG pCO2 50 H (35-45) mmHg ABG HCO3 28 H (21-25) mmol/L ABG Total CO2 30 H (19-24) mmol/L ABG O2 Saturation 98.3 H (94-97) % BUN (7-17) mg/dL Glucose (74-99) mg/dL POC Glucose (mg/dL) 139 H 119 H (75-99) mg/dL Calcium (8.4-10.2) mg/dL Magnesium (1.6-2.3) mg/dL AST (14-36) U/L ALT (9-52) U/L Total Protein (6.3-8.2) g/dL Albumin (3.5-5.0) g/dL Crossmatch 07/08/18 07/08/18 07/08/18 Range/Units 00:09 01:04 02:24 WBC (3.8-10.6) k/uL RBC (3.80-5.40) m/uL Hgb (11.4-16.0) gm/dL Hct (34.0-46.0) % RDW (11.5-15.5) % Plt Count (150-450) k/uL Neutrophils # (1.3-7.7) k/uL ABG pH (7.35-7.45) ABG pCO2 (35-45) mmHg ABG HCO3 (21-25) mmol/L ABG Total CO2 (19-24) mmol/L ABG O2 Saturation (94-97) % BUN (7-17) mg/dL Glucose (74-99) mg/dL POC Glucose (mg/dL) 111 H 133 H 124 H (75-99) mg/dL Calcium (8.4-10.2) mg/dL Magnesium (1.6-2.3) mg/dL AST (14-36) U/L ALT (9-52) U/L Total Protein (6.3-8.2) g/dL Albumin (3.5-5.0) g/dL Crossmatch 07/08/18 07/08/18 07/08/18 Range/Units 03:01 03:50 03:50 WBC (3.8-10.6) k/uL RBC 2.37 L (3.80-5.40) m/uL Hgb 7.6 L (11.4-16.0) gm/dL Hct 23.4 L (34.0-46.0) % RDW 17.5 H (11.5-15.5) % Plt Count 135 L (150-450) k/uL Neutrophils # 8.1 H (1.3-7.7) k/uL ABG pH (7.35-7.45) ABG pCO2 (35-45) mmHg ABG HCO3 (21-25) mmol/L ABG Total CO2 (19-24) mmol/L ABG O2 Saturation (94-97) % BUN 27 H (7-17) mg/dL Glucose 107 H (74-99) mg/dL POC Glucose (mg/dL) 117 H (75-99) mg/dL Calcium 7.8 L (8.4-10.2) mg/dL Magnesium 3.4 H (1.6-2.3) mg/dL AST 149 H (14-36) U/L ALT 87 H (9-52) U/L Total Protein 5.2 L (6.3-8.2) g/dL Albumin 3.0 L (3.5-5.0) g/dL Crossmatch 07/08/18 07/08/18 07/08/18 Range/Units 03:58 05:06 06:01 WBC (3.8-10.6) k/uL RBC (3.80-5.40) m/uL Hgb (11.4-16.0) gm/dL Hct (34.0-46.0) % RDW (11.5-15.5) % Plt Count (150-450) k/uL Neutrophils # (1.3-7.7) k/uL ABG pH (7.35-7.45) ABG pCO2 (35-45) mmHg ABG HCO3 (21-25) mmol/L ABG Total CO2 (19-24) mmol/L ABG O2 Saturation (94-97) % BUN (7-17) mg/dL Glucose (74-99) mg/dL POC Glucose (mg/dL) 111 H 130 H 127 H (75-99) mg/dL Calcium (8.4-10.2) mg/dL Magnesium (1.6-2.3) mg/dL AST (14-36) U/L ALT (9-52) U/L Total Protein (6.3-8.2) g/dL Albumin (3.5-5.0) g/dL Crossmatch 07/08/18 07/08/18 07/08/18 Range/Units 07:00 07:01 07:02 WBC (3.8-10.6) k/uL RBC (3.80-5.40) m/uL Hgb (11.4-16.0) gm/dL Hct (34.0-46.0) % RDW (11.5-15.5) % Plt Count (150-450) k/uL Neutrophils # (1.3-7.7) k/uL ABG pH (7.35-7.45) ABG pCO2 (35-45) mmHg ABG HCO3 (21-25) mmol/L ABG Total CO2 (19-24) mmol/L ABG O2 Saturation (94-97) % BUN (7-17) mg/dL Glucose (74-99) mg/dL POC Glucose (mg/dL) 71 L 70 L 109 H (75-99) mg/dL Calcium (8.4-10.2) mg/dL Magnesium (1.6-2.3) mg/dL AST (14-36) U/L ALT (9-52) U/L Total Protein (6.3-8.2) g/dL Albumin (3.5-5.0) g/dL Crossmatch 07/08/18 07/08/18 07/08/18 Range/Units 09:18 10:30 11:17 WBC (3.8-10.6) k/uL RBC (3.80-5.40) m/uL Hgb (11.4-16.0) gm/dL Hct (34.0-46.0) % RDW (11.5-15.5) % Plt Count (150-450) k/uL Neutrophils # (1.3-7.7) k/uL ABG pH (7.35-7.45) ABG pCO2 (35-45) mmHg ABG HCO3 (21-25) mmol/L ABG Total CO2 (19-24) mmol/L ABG O2 Saturation (94-97) % BUN (7-17) mg/dL Glucose (74-99) mg/dL POC Glucose (mg/dL) 187 H 134 H 111 H (75-99) mg/dL Calcium (8.4-10.2) mg/dL Magnesium (1.6-2.3) mg/dL AST (14-36) U/L ALT (9-52) U/L Total Protein (6.3-8.2) g/dL Albumin (3.5-5.0) g/dL Crossmatch 07/08/18 Range/Units 12:17 WBC (3.8-10.6) k/uL RBC (3.80-5.40) m/uL Hgb (11.4-16.0) gm/dL Hct (34.0-46.0) % RDW (11.5-15.5) % Plt Count (150-450) k/uL Neutrophils # (1.3-7.7) k/uL ABG pH (7.35-7.45) ABG pCO2 (35-45) mmHg ABG HCO3 (21-25) mmol/L ABG Total CO2 (19-24) mmol/L ABG O2 Saturation (94-97) % BUN (7-17) mg/dL Glucose (74-99) mg/dL POC Glucose (mg/dL) 120 H (75-99) mg/dL Calcium (8.4-10.2) mg/dL Magnesium (1.6-2.3) mg/dL AST (14-36) U/L ALT (9-52) U/L Total Protein (6.3-8.2) g/dL Albumin (3.5-5.0) g/dL Crossmatch
[2018-07-08 17:16] LABS: Glucose,Whole Blood 142 mg/dL (75-99)
[2018-07-08] MEDS: INSULIN ASPART 100 UNIT/ML 1 ML 10 ML VIAL SQ SCH ×2 (17:40→22:05)
[2018-07-08 21:34] LABS: Glucose,Whole Blood 143 mg/dL (75-99)
[2018-07-08] MEDS: SENNOSIDES-DOCUSATE SODIUM 1 EACH TAB PO SCH (22:06)
[2018-07-09] MEDS: KETOROLAC 30 MG/ML 1 ML VIAL IVP SCH ×2 (00:37→06:24)
[2018-07-09] MEDS: HEPARIN SODIUM,PORCINE 5,000 UNIT/ML 1 ML VIAL SQ SCH ×3 (00:38→15:30)
[2018-07-09 02:28] LABS: Glucose,Whole Blood 116 mg/dL (75-99)
[2018-07-09 05:50] LABS: Ionized Calcium 4.6 mg/dL (4.5-5.3)
[2018-07-09 06:00] LABS: Albumin 2.8 g/dL (3.5-5.0); Calcium 7.8 mg/dL (8.4-10.2); Magnesium 2.9 mg/dL (1.6-2.3); Potassium 4.5 mmol/L (3.5-5.1); Total Bilirubin 0.3 mg/dL (0.2-1.3)
[2018-07-09 06:10] LABS: Anisocytosis Slight; Basophils % (A) 0 %; Eosinophils % (A) 0 %; HCT 21.3 % (34.0-46.0); Hypochromasia Slight; Lymphocytes # (A) 0.9 k/uL (1.0-4.8); Lymphocytes % (A) 10 %; MCH 31.7 pg (25.0-35.0); MCHC 31.8 g/dL (31.0-37.0); MCV 99.5 fL (80.0-100.0); Macrocytosis Slight; Mean Platelet Volume 7.9; Monocytes # (A) 0.4 k/uL (0-1.0); Monocytes % (A) 4 %; Neutrophils # (A) 7.8 k/uL (1.3-7.7); Neutrophils % (A) 84 %; Platelet Count 115 k/uL (150-450); RBC 2.14 m/uL (3.80-5.40); RDW 17.1 % (11.5-15.5); WBC 9.3 k/uL (3.8-10.6)
[2018-07-09 06:14] LABS: HGB 6.8 gm/dL (11.4-16.0)
[2018-07-09 06:56] LABS: Glucose,Whole Blood 133 mg/dL (75-99)
--- NOTE | 2018-07-09 07:56 | P.PN ---
Subjective Progress Note Date: 07/09/18 Principal diagnosis: Coronary artery disease with left main disease, mitral regurgitation. Previous medical history of myocardial infarction, hyperlipidemia, chronic systolic heart failure with most recent ejection fraction 45%, right breast cancer with mastectomy, status post chemo and radiation in 1997, hypothyroidism, previous tobacco dependence with [id number] history, mild COPD with preoperative FEV1 63% of predicted, home oxygen use when necessary at bedtime, peripheral artery disease with dry gangrene of the fourth toe on the right foot, right carotid stenosis 50-79%, medical noncompliance, significant family history of coronary artery disease. POD #2 coronary artery bypass grafting 5 with sequential LIU to diagonal and LAD, reverse saphenous vein grafts to first and second obtuse marginal and right coronary artery. Mitral valve annuloplasty with a 24 mm physio-2 annuloplasty ring. Ligation of the left atrial appendage. Endovascular vein harvest of the greater saphenous vein from the left lower extremity from the ankle to the groin. Intraoperative transesophageal echocardiogram by anesthesia. Postoperative acute blood loss anemia, expected outcome given hemodilution and cardiopulmonary bypass pump The patient is currently sitting up in a recliner in no acute distress in the intensive care unit. She remained stable overnight and her oxygen was able to be weaned down to 4 L nasal cannula. Her hemodynamics are stable on no inotropes or pressors. Her hemoglobin did dip a bit to 6.8 this morning, however she is not tachycardic nor hypotensive. She denies pain and shortness of breath. She did ambulate outside the room for a short distance yesterday afternoon without difficulty. No new complaints. Objective - Vital Signs Vital signs: Vital Signs Temp 97.2 F L 07/09/18 04:00 Pulse 66 07/09/18 07:00 Resp 14 07/09/18 07:00 BP 116/61 07/08/18 06:00 Pulse Ox 87 L 07/09/18 07:00 Intake & Output 07/08/18 07/09/18 07/09/18 18:59 06:59 18:59 Intake Total 727.101 628 26 Output Total 872 785 40 Balance -144.899 -157 -14 Weight 80.8 kg 80.5 kg Intake: IV 708 288 26 Albumin Human 5% 250 ml 250 In Empty Bag 1 bag @ 250 mls/hr IVPB Q1HR PRN Rx#: [id number] Lactated Ringers 1,000 ml 380 240 20 @ 20 mls/hr IV .Q24H BETSY Rx#:[id number] Pressure Bag (NS) 78 48 6 Intake, IV Titration 19.101 100 Amount Albumin Human 5% 250 ml 100 In Empty Bag 1 bag @ 250 mls/hr IVPB Q1HR PRN Rx#: [id number] Clevidipine Butyrate 25 15.234 mg In Empty Bag 1 bag @ 1 MG/HR 2 mls/hr IV .Q24H BETSY Rx#:[id number] Insulin Regular 100 unit 3.867 In Sodium Chloride 0.9% 100 ml @ Per Protocol IV .Q0M BETSY Rx#:[id number] Oral 240 Output: Chest Tube Drainage 260 280 Chest Tube Bilateral 190 210 Lateral Chest Chest Tube Lower 70 70 Mediastinal Urine 612 505 40 Other: Voiding Method Indwelling Catheter Indwelling Catheter ABP, PAP, CO, CI - Last Documented Arterial Blood Pressure 104/40 Pulmonary Artery Pressure 44/24 Cardiac Output 4.1 Cardiac Index 2.4 - Constitutional General appearance: Present: cooperative, no acute distress - Respiratory Details: Lung sounds diminished bilaterally. Respirations even, nonlabored. Currently on 4 L nasal cannula with oxygen saturation 97%. Able to achieve 500-750 mL on her incentive spirometry. Weak, dry cough present. Mediastinal chest tube to continuous wall suction, 30 mL serosanguineous drainage overnight, 150 mL in the last 24 hours, no air leak present. Right/left pleural chest tube to continuous wall suction, 150 mL serosanguineous drainage overnight, 450 mL in the last 24 hours, no air leaks present. - Cardiovascular Details: S1, S2 present. Regular rate and rhythm, AV paced on telemetry with underlying sinus rhythm in the 60s. A/V epicardial pacemaker wires present, connected to generator, DDD mode with rate 70 bpm. Sternum stable. Palpable peripheral pulses bilaterally. No edema present. No calf pain or tenderness noted. Right internal jugular Cordis, left radial arterial line present. Heart hugger in place with patient demonstrating appropriate use. Antiembolism stockings, SCDs present. - Gastrointestinal Gastrointestinal Comment(s): Abdomen soft, nontender, nondistended. Hypoactive bowel sounds present 4 quadrants. Tolerating sips of water. Positive belching, negative flatus. - Genitourinary Genitourinary Comment(s): Marshall present draining clear, yellow urine. Output overnight 30-55 mL per hour. - Integumentary Integumentary Comment(s): Skin is warm and dry without evidence of good perfusion. Anterior chest incision well approximated and covered with dry intact dressing. Left lower extremity EVH site well approximated. Fourth toe on right foot with black dry gangrene, present prior to admission and being followed by vascular surgery. - Neurologic Neurologic: Present: CNII-XII intact - Musculoskeletal Musculoskeletal: Present: gait normal, strength equal bilaterally - Psychiatric Psychiatric: Present: A&O x's 3, appropriate affect, intact judgment & insight - Allied health notes Allied health notes reviewed: nursing - Labs CBC & Chem 7: 07/09/18 05:30 07/09/18 05:30 Labs: Abnormal Lab Results - Last 24 Hours (Table) 07/04/18 07/08/18 07/08/18 Range/Units 08:46 09:18 10:30 RBC (3.80-5.40) m/uL Hgb (11.4-16.0) gm/dL Hct (34.0-46.0) % RDW (11.5-15.5) % Plt Count (150-450) k/uL Neutrophils # (1.3-7.7) k/uL Lymphocytes # (1.0-4.8) k/uL Sodium (137-145) mmol/L BUN (7-17) mg/dL Creatinine (0.52-1.04) mg/dL Glucose (74-99) mg/dL POC Glucose (mg/dL) 187 H 134 H (75-99) mg/dL Calcium (8.4-10.2) mg/dL Magnesium (1.6-2.3) mg/dL AST (14-36) U/L Total Protein (6.3-8.2) g/dL Albumin (3.5-5.0) g/dL Crossmatch See Detail 07/08/18 07/08/18 07/08/18 Range/Units 11:17 12:17 17:12 RBC (3.80-5.40) m/uL Hgb (11.4-16.0) gm/dL Hct (34.0-46.0) % RDW (11.5-15.5) % Plt Count (150-450) k/uL Neutrophils # (1.3-7.7) k/uL Lymphocytes # (1.0-4.8) k/uL Sodium (137-145) mmol/L BUN (7-17) mg/dL Creatinine (0.52-1.04) mg/dL Glucose (74-99) mg/dL POC Glucose (mg/dL) 111 H 120 H 142 H (75-99) mg/dL Calcium (8.4-10.2) mg/dL Magnesium (1.6-2.3) mg/dL AST (14-36) U/L Total Protein (6.3-8.2) g/dL Albumin (3.5-5.0) g/dL Crossmatch 07/08/18 07/09/18 07/09/18 Range/Units 21:31 02:07 05:30 RBC (3.80-5.40) m/uL Hgb (11.4-16.0) gm/dL Hct (34.0-46.0) % RDW (11.5-15.5) % Plt Count (150-450) k/uL Neutrophils # (1.3-7.7) k/uL Lymphocytes # (1.0-4.8) k/uL Sodium 134 L (137-145) mmol/L BUN 32 H (7-17) mg/dL Creatinine 1.10 H (0.52-1.04) mg/dL Glucose 130 H (74-99) mg/dL POC Glucose (mg/dL) 143 H 116 H (75-99) mg/dL Calcium 7.8 L (8.4-10.2) mg/dL Magnesium 2.9 H (1.6-2.3) mg/dL AST 79 H (14-36) U/L Total Protein 5.0 L (6.3-8.2) g/dL Albumin 2.8 L (3.5-5.0) g/dL Crossmatch 07/09/18 07/09/18 Range/Units 05:30 06:53 RBC 2.14 L (3.80-5.40) m/uL Hgb 6.8 L* (11.4-16.0) gm/dL Hct 21.3 L (34.0-46.0) % RDW 17.1 H (11.5-15.5) % Plt Count 115 L (150-450) k/uL Neutrophils # 7.8 H (1.3-7.7) k/uL Lymphocytes # 0.9 L (1.0-4.8) k/uL Sodium (137-145) mmol/L BUN (7-17) mg/dL Creatinine (0.52-1.04) mg/dL Glucose (74-99) mg/dL POC Glucose (mg/dL) 133 H (75-99) mg/dL Calcium (8.4-10.2) mg/dL Magnesium (1.6-2.3) mg/dL AST (14-36) U/L Total Protein (6.3-8.2) g/dL Albumin (3.5-5.0) g/dL Crossmatch - Imaging and Cardiology Chest x-ray: image reviewed Assessment and Plan (1) CAD (coronary artery disease), [place] coronary artery Current Visit: Yes Status: Chronic Code(s): I25.10 - ATHSCL HEART DISEASE OF [place] CORONARY ARTERY W/O ANG PCTRS SNOMED Code(s): 0778942180444 (2) COPD (chronic obstructive pulmonary disease) Current Visit: Yes Status: Chronic Code(s): J44.9 - CHRONIC OBSTRUCTIVE PULMONARY DISEASE, UNSPECIFIED SNOMED Code(s): 96194249 (3) Carotid arterial disease Current Visit: Yes Status: Chronic Code(s): I77.9 - DISORDER OF ARTERIES AND ARTERIOLES, UNSPECIFIED SNOMED Code(s): 813340017 (4) Medical non-compliance Current Visit: Yes Status: Chronic Code(s): Z91.19 - PATIENT'S NONCOMPLIANCE W OTH MEDICAL TREATMENT AND REGIMEN SNOMED Code(s): 530092039 (5) Severe mitral regurgitation Current Visit: Yes Status: Chronic Code(s): I34.0 - NONRHEUMATIC MITRAL ( VALVE) INSUFFICIENCY SNOMED Code(s): 65019956 (6) Family history of heart disease Current Visit: Yes Status: Chronic Code(s): Z82.49 - FAMILY HX OF ISCHEM HEART DIS AND OTH DIS OF THE CIRC SYS SNOMED Code(s): 939887233 (7) Hypothyroid Current Visit: No Status: Resolved Code(s): E03.9 - HYPOTHYROIDISM, UNSPECIFIED SNOMED Code(s): 64292702 (8) Left main coronary artery disease Current Visit: Yes Status: Chronic Code(s): I25.10 - ATHSCL HEART DISEASE OF [place] CORONARY ARTERY W/O ANG PCTRS SNOMED Code(s): 541777372 (9) Hyperlipidemia Current Visit: Yes Status: Chronic Code(s): E78.5 - HYPERLIPIDEMIA, UNSPECIFIED SNOMED Code(s): 25556132 (10) Chronic systolic heart failure Current Visit: Yes Status: Chronic Code(s): I50.22 - CHRONIC SYSTOLIC ( CONGESTIVE) HEART FAILURE SNOMED Code(s): 652952425 (11) Previous myocardial infarction older than 8 weeks Current Visit: No Status: Resolved Code(s): I25.2 - OLD MYOCARDIAL INFARCTION SNOMED Code(s): 6624522 (12) Peripheral artery disease Current Visit: Yes Status: Chronic Code(s): I73.9 - PERIPHERAL VASCULAR DISEASE, UNSPECIFIED SNOMED Code(s): 264086392 (13) On home O2 Current Visit: Yes Status: Chronic Code(s): Z99.81 - DEPENDENCE ON SUPPLEMENTAL OXYGEN SNOMED Code(s): 489908684116 (14) History of breast cancer Current Visit: No Status: Resolved Code(s): Z85.3 - PERSONAL HISTORY OF MALIGNANT NEOPLASM OF BREAST SNOMED Code(s): 211376105 (15) History of chemotherapy Current Visit: No Status: Resolved Code(s): Z92.21 - PERSONAL HISTORY OF ANTINEOPLASTIC CHEMOTHERAPY SNOMED Code(s): 019044604887703 (16) History of right mastectomy Current Visit: No Status: Resolved Code(s): Z90.11 - ACQUIRED ABSENCE OF RIGHT BREAST AND NIPPLE SNOMED Code(s): 734029274 (17) Tobacco dependence in remission Current Visit: No Status: Resolved Code(s): F17.201 - NICOTINE DEPENDENCE, UNSPECIFIED, IN REMISSION SNOMED Code(s): 450269926 Plan: 1. Continue aspirin, statin, Plavix, AMANDA inhibitor. Will restart low-dose beta gregg today and increase as tolerated. Ground epicardial pacemaker wires. 2. Wean O2 as tolerated. Encourage incentive spirometry 10 times every hour while awake. 3. Bronchodilators, inhaled steroids per pulmonology. 4. Increase activity, ambulate as tolerated. PT/OT/cardiac rehab following. 5. Will discontinue mediastinal chest tubes. Continue pleural chest tubes for another 24 hours. 6. Discontinue Marshall catheter. Bladder scan and straight cath as needed for residual greater than 300 mL. 7. Will monitor daily labs and x-rays. Electrolyte replacement per protocol. No transfusion at this point. 8. Pain control with current medication regimen. 9. Insulin management per primary care service. 10. GI prophylaxis with Protonix, DVT prophylaxis with subcu heparin, SCDs. 11. Encourage continued smoking cessation. 12. Will discontinue right internal jugular Cordis, left radial arterial line, place transfer orders for 3 self cardiac stepdown unit. 13. More recommendations to follow. Time with Patient: Greater than 30
[2018-07-09] MEDS: MULTIVITAMINS, THERA 1 EACH TAB PO SCH (08:09)
[2018-07-09] MEDS: CLOPIDOGREL 75 MG TAB PO SCH (08:09)
[2018-07-09] MEDS: LISINOPRIL 5 MG TAB PO SCH (08:10)
[2018-07-09] MEDS: PANTOPRAZOLE 40 MG TABLET PO SCH (08:10)
[2018-07-09] MEDS: ASPIRIN 325 MG TAB PO SCH (08:10)
[2018-07-09] MEDS: ASCORBIC ACID 500 MG TAB PO SCH (08:10)
[2018-07-09] MEDS: GABAPENTIN 300 MG CAP PO SCH ×3 (08:10→21:42)
[2018-07-09] MEDS: INSULIN ASPART 100 UNIT/ML 1 ML 10 ML VIAL SQ SCH ×4 (08:10→21:45)
[2018-07-09] MEDS: ATORVASTATIN 40 MG TAB PO SCH (08:10)
[2018-07-09] MEDS: MUPIROCIN 2% OINT 22 GM TUBE NASAL SCH ×2 (08:11→21:45)
--- NOTE | 2018-07-09 08:13 | XR ---
EXAMINATION TYPE: XR chest 1V portable DATE OF EXAM: 07/09/2018 COMPARISON: 07/08/2018 HISTORY: Postop cardiac surgery. Follow-up exam. TECHNIQUE: Single frontal view of the chest is obtained. FINDINGS: [place] catheter has been removed in the interim. Right internal jugular catheter sheath remains. Bilateral thoracostomy tubes are again present. Annuloplasty ring is noted with median ster notomy wires and mediastinal clips. Mediastinal drains are also unchanged in position. Right axillary clips are also again present. Cardia mediastinal silhouette is partially obscured but enlarged. There is a trace improving right pl eural effusion and persistent small left pleural effusion with left basilar airspace disease and scat tered linear atelectasis. No sizable residual pneumothorax is seen. IMPRESSION: Improving trace right pleural effusion, stable small left pleural effusion with associat ed airspace disease, and postoperative changes of the chest as described above.
--- NOTE | 2018-07-09 09:08 | P.PN ---
Subjective Patient is sitting up in a chair. She looks weak and tired but she is not short of breath. Mild incisional chest discomfort Vitals are stable heart rates are in the 60s, blood pressure 118/70 mmHg Breath sounds are reduced bilaterally with crackles at both bases Heart sounds S1-S2 are soft and distant Extremities warm Impression Coronary artery bypass grafting for multivessel coronary artery disease along with mitral valve angioplasty and left atrial appendectomy Postoperative anemia Suggest Her vitals are stable and she we can start carvedilol at a low dose of 3.125 mg twice daily Continue ICU and spoke CT surgery management per CT surgery Objective - Vital Signs Vital signs: Vital Signs Temp 97.2 F L 07/09/18 04:00 Pulse 66 07/09/18 07:00 Resp 14 07/09/18 07:00 BP 116/61 07/08/18 06:00 Pulse Ox 87 L 07/09/18 07:00 Intake & Output 07/08/18 07/09/18 07/09/18 18:59 06:59 18:59 Intake Total 727.101 628 52 Output Total 872 785 245 Balance -144.899 -157 -193 Weight 80.8 kg 80.5 kg Intake: IV 708 288 52 Albumin Human 5% 250 ml 250 In Empty Bag 1 bag @ 250 mls/hr IVPB Q1HR PRN Rx#: [id number] Lactated Ringers 1,000 ml 380 240 40 @ 20 mls/hr IV .Q24H [facility] Rx#:[id number] Pressure Bag (NS) 78 48 12 Intake, IV Titration 19.101 100 Amount Albumin Human 5% 250 ml 100 In Empty Bag 1 bag @ 250 mls/hr IVPB Q1HR PRN Rx#: [id number] Clevidipine Butyrate 25 15.234 mg In Empty Bag 1 bag @ 1 MG/HR 2 mls/hr IV .Q24H [facility] Rx#:[id number] Insulin Regular 100 unit 3.867 In Sodium Chloride 0.9% 100 ml @ Per Protocol IV .Q0M [facility] Rx#:[id number] Oral 240 Output: Chest Tube Drainage 260 280 170 Chest Tube Bilateral 190 210 140 Lateral Chest Chest Tube Lower 70 70 30 Mediastinal Urine 612 505 75 Other: Voiding Method Indwelling Catheter Indwelling Catheter ABP, PAP, CO, CI - Last Documented Arterial Blood Pressure 104/40 Pulmonary Artery Pressure 44/24 Cardiac Output 4.1 Cardiac Index 2.4 - Labs CBC & Chem 7: 07/09/18 05:30 07/09/18 05:30 Labs: Abnormal Lab Results - Last 24 Hours (Table) 07/04/18 07/08/18 07/08/18 Range/Units 08:46 09:18 10:30 RBC (3.80-5.40) m/uL Hgb (11.4-16.0) gm/dL Hct (34.0-46.0) % RDW (11.5-15.5) % Plt Count (150-450) k/uL Neutrophils # (1.3-7.7) k/uL Lymphocytes # (1.0-4.8) k/uL Sodium (137-145) mmol/L BUN (7-17) mg/dL Creatinine (0.52-1.04) mg/dL Glucose (74-99) mg/dL POC Glucose (mg/dL) 187 H 134 H (75-99) mg/dL Calcium (8.4-10.2) mg/dL Magnesium (1.6-2.3) mg/dL AST (14-36) U/L Total Protein (6.3-8.2) g/dL Albumin (3.5-5.0) g/dL Crossmatch See Detail 07/08/18 07/08/18 07/08/18 Range/Units 11:17 12:17 17:12 RBC (3.80-5.40) m/uL Hgb (11.4-16.0) gm/dL Hct (34.0-46.0) % RDW (11.5-15.5) % Plt Count (150-450) k/uL Neutrophils # (1.3-7.7) k/uL Lymphocytes # (1.0-4.8) k/uL Sodium (137-145) mmol/L BUN (7-17) mg/dL Creatinine (0.52-1.04) mg/dL Glucose (74-99) mg/dL POC Glucose (mg/dL) 111 H 120 H 142 H (75-99) mg/dL Calcium (8.4-10.2) mg/dL Magnesium (1.6-2.3) mg/dL AST (14-36) U/L Total Protein (6.3-8.2) g/dL Albumin (3.5-5.0) g/dL Crossmatch 07/08/18 07/09/18 07/09/18 Range/Units 21:31 02:07 05:30 RBC (3.80-5.40) m/uL Hgb (11.4-16.0) gm/dL Hct (34.0-46.0) % RDW (11.5-15.5) % Plt Count (150-450) k/uL Neutrophils # (1.3-7.7) k/uL Lymphocytes # (1.0-4.8) k/uL Sodium 134 L (137-145) mmol/L BUN 32 H (7-17) mg/dL Creatinine 1.10 H (0.52-1.04) mg/dL Glucose 130 H (74-99) mg/dL POC Glucose (mg/dL) 143 H 116 H (75-99) mg/dL Calcium 7.8 L (8.4-10.2) mg/dL Magnesium 2.9 H (1.6-2.3) mg/dL AST 79 H (14-36) U/L Total Protein 5.0 L (6.3-8.2) g/dL Albumin 2.8 L (3.5-5.0) g/dL Crossmatch 07/09/18 07/09/18 Range/Units 05:30 06:53 RBC 2.14 L (3.80-5.40) m/uL Hgb 6.8 L* (11.4-16.0) gm/dL Hct 21.3 L (34.0-46.0) % RDW 17.1 H (11.5-15.5) % Plt Count 115 L (150-450) k/uL Neutrophils # 7.8 H (1.3-7.7) k/uL Lymphocytes # 0.9 L (1.0-4.8) k/uL Sodium (137-145) mmol/L BUN (7-17) mg/dL Creatinine (0.52-1.04) mg/dL Glucose (74-99) mg/dL POC Glucose (mg/dL) 133 H (75-99) mg/dL Calcium (8.4-10.2) mg/dL Magnesium (1.6-2.3) mg/dL AST (14-36) U/L Total Protein (6.3-8.2) g/dL Albumin (3.5-5.0) g/dL Crossmatch
[2018-07-09] MEDS: IPRATROPIUM-ALBUTEROL 3 ML NEB INHALATION SCH ×5 (09:26→20:19)
[2018-07-09] MEDS: SYMBICORT 160-4.5 MCG INHALER INHALATION SCH ×2 (09:26→20:19)
[2018-07-09] MEDS ORDERED: ACETAMINOPHEN TAB 325 MG TAB PO PRN (09:54)
[2018-07-09] MEDS: METOPROLOL TARTRATE 12.5 MG TAB PO SCH ×2 (12:15→21:42)
[2018-07-09] MEDS: CHOLECALCIFEROL 1,000 UNIT TAB PO SCH (12:18)
[2018-07-09 12:19] LABS: Glucose,Whole Blood 130 mg/dL (75-99)
[2018-07-09] MEDS: HYDROcodone/APAP 5-325MG 1 EACH TAB PO PRN ×3 (15:28→22:20)
[2018-07-09] MEDS ORDERED: METOCLOPRAMIDE 5 MG/ML 2 ML VIAL IVP PRN (15:38)
--- NOTE | 2018-07-09 15:59 | P.PN ---
Subjective Progress Note Date: 07/09/18 Principal diagnosis: Status post CABG, and mitral valve repair. Postoperative day #2. This is a 73-year-old female with known history of COPD, Gold stage II, FEV1 is 63%. usually sees Dr. Perez, she is mostly on oxygen at night. Patient was recently found to have multivessel coronary artery disease and severe mitral regurgitation. She was cleared by Dr. Perez for surgery based on her PFTs done in the office, and on 07/07/2018, patient underwent multivessel myocardial revascularization, she underwent five-vessel bypass surgery, with LIU to LAD, SVG to the first and second obtuse marginal as well as the RCA. She also had mitral valve annuloplasty and ligation of left atrial appendage. Postoperatively, patient was on mechanical ventilation, and I was asked to see her on consultation. Her postoperative course was relatively uneventful. She hours after her surgery, I was called about her ventilator settings, her weaning ABG, and initially she was borderline for extubation. Hence we delayed the extubation about 2 hours. As her mental status improved and the patient became more awake, follow-up ABG was done, follow-up trial on pressure support and CPAP was given, patient was extubated uneventfully. Later at night the patient developed some desaturation, chest x-ray showed evidence of interstitial edema, responded to 20 mg of Lasix given and her O2 saturation improved presently on 15 L high flow nasal cannula, patient is not in any distress. Seen this morning, patient is doing well, relatively asymptomatic, and O2 saturation is in the mid 90s on 50% high flow nasal cannula. Patient was reevaluated today on 07/09/2018, remains in the ICU, she was extubated yesterday uneventfully. Patient is doing great, she feels generally weak, doing fairly well with incentive spirometry and area where between 500- 750 mL. She is already ambulating in the hallway, but she was noted to be quite weak with assistance while ambulating in front of the room in the ICU hallway. Denies any chest pain, no cough, no wheezing, no shortness of breath, remains on few liters nasal cannula, O2 saturation is in the low 90s. Chest x- ray this morning showed a trace of right pleural effusion, small left pleural effusion, and atelectasis. This is basically expected after CABG. All labs were reviewed, her hemoglobin was noted to be 6.8, however decision whether the patient is to be transfused would be left to the cardiac surgeon on the case. Renal functioning showed a BUN of 32 creatinine of 1.1. Creatinine is a bit worse compared to baseline before admission. Objective - Vital Signs Vital signs: Vital Signs Temp 98 F 07/09/18 12:00 Pulse 71 07/09/18 15:02 Resp 24 07/09/18 15:02 BP 112/47 07/09/18 15:02 Pulse Ox 93 L 07/09/18 15:02 Intake & Output 07/08/18 07/09/18 07/09/18 18:59 06:59 18:59 Intake Total 727.101 628 104 Output Total 872 785 435 Balance -144.899 -157 -331 Weight 80.8 kg 80.5 kg Intake: IV 708 288 104 Albumin Human 5% 250 ml 250 In Empty Bag 1 bag @ 250 mls/hr IVPB Q1HR PRN Rx#: [id number] Lactated Ringers 1,000 ml 380 240 80 @ 20 mls/hr IV .Q24H [facility] Rx#:[id number] Pressure Bag (NS) 78 48 24 Intake, IV Titration 19.101 100 Amount Albumin Human 5% 250 ml 100 In Empty Bag 1 bag @ 250 mls/hr IVPB Q1HR PRN Rx#: [id number] Clevidipine Butyrate 25 15.234 mg In Empty Bag 1 bag @ 1 MG/HR 2 mls/hr IV .Q24H [facility] Rx#:[id number] Insulin Regular 100 unit 3.867 In Sodium Chloride 0.9% 100 ml @ Per Protocol IV .Q0M [facility] Rx#:[id number] Oral 240 Output: Chest Tube Drainage 260 280 230 Chest Tube Bilateral 190 210 190 Lateral Chest Chest Tube Lower 70 70 40 Mediastinal Urine 612 505 205 Other: Voiding Method Indwelling Catheter Indwelling Catheter Indwelling Catheter ABP, PAP, CO, CI - Last Documented Arterial Blood Pressure 122/44 Pulmonary Artery Pressure 44/24 Cardiac Output 4.1 Cardiac Index 2.4 - Exam Physical Exam: Revealed a 73-year-old female in no distress, 3 L nasal cannula Head: Atraumatic, normocephalic. HEENT:[Neck is supple.] [No neck masses.] [No thyromegaly.] [No JVD.] PERRLA, EOMI, no icterus. Chest: [Diminished breath sounds and crackles at the bases. No rhonchi, no wheezes. Cardiac Exam: [Normal S1 and S2, no S3 gallop, no murmur.] Abdomen: [Soft, nontender, no megaly, no rebound, no guarding, normal bowel sounds.] Extremities: [No clubbing, no edema, no cyanosis.] Neurological Exam: [No focal neurologic deficit.] Skin: No rashes. Psychiatric: Normal mood affect and mental status examination. - Labs CBC & Chem 7: 07/09/18 05:30 07/09/18 05:30 Labs: Abnormal Lab Results - Last 24 Hours (Table) 07/04/18 07/08/18 07/08/18 Range/Units 08:46 17:12 21:31 RBC (3.80-5.40) m/uL Hgb (11.4-16.0) gm/dL Hct (34.0-46.0) % RDW (11.5-15.5) % Plt Count (150-450) k/uL Neutrophils # (1.3-7.7) k/uL Lymphocytes # (1.0-4.8) k/uL Sodium (137-145) mmol/L BUN (7-17) mg/dL Creatinine (0.52-1.04) mg/dL Glucose (74-99) mg/dL POC Glucose (mg/dL) 142 H 143 H (75-99) mg/dL Calcium (8.4-10.2) mg/dL Magnesium (1.6-2.3) mg/dL AST (14-36) U/L Total Protein (6.3-8.2) g/dL Albumin (3.5-5.0) g/dL Crossmatch See Detail 07/09/18 07/09/18 07/09/18 Range/Units 02:07 05:30 05:30 RBC 2.14 L (3.80-5.40) m/uL Hgb 6.8 L* (11.4-16.0) gm/dL Hct 21.3 L (34.0-46.0) % RDW 17.1 H (11.5-15.5) % Plt Count 115 L (150-450) k/uL Neutrophils # 7.8 H (1.3-7.7) k/uL Lymphocytes # 0.9 L (1.0-4.8) k/uL Sodium 134 L (137-145) mmol/L BUN 32 H (7-17) mg/dL Creatinine 1.10 H (0.52-1.04) mg/dL Glucose 130 H (74-99) mg/dL POC Glucose (mg/dL) 116 H (75-99) mg/dL Calcium 7.8 L (8.4-10.2) mg/dL Magnesium 2.9 H (1.6-2.3) mg/dL AST 79 H (14-36) U/L Total Protein 5.0 L (6.3-8.2) g/dL Albumin 2.8 L (3.5-5.0) g/dL Crossmatch 07/09/18 07/09/18 Range/Units 06:53 12:05 RBC (3.80-5.40) m/uL Hgb (11.4-16.0) gm/dL Hct (34.0-46.0) % RDW (11.5-15.5) % Plt Count (150-450) k/uL Neutrophils # (1.3-7.7) k/uL Lymphocytes # (1.0-4.8) k/uL Sodium (137-145) mmol/L BUN (7-17) mg/dL Creatinine (0.52-1.04) mg/dL Glucose (74-99) mg/dL POC Glucose (mg/dL) 133 H 130 H (75-99) mg/dL Calcium (8.4-10.2) mg/dL Magnesium (1.6-2.3) mg/dL AST (14-36) U/L Total Protein (6.3-8.2) g/dL Albumin (3.5-5.0) g/dL Crossmatch Assessment and Plan Assessment: Impression: 1 status post CABG, mitral valve annuloplasty, postoperative day #2 2 bilateral pleural effusions and atelectasis, expected post surgery/CABG. slightly improved based on the chest x-ray from today. 3 gold stage II COPD, FEV1 63%. Remains on bronchodilators. 4 history of hypothyroidism 5 multiple comorbidities including prediabetes, carotid artery disease, scoliosis, vitamin D deficiency, and acute blood loss anemia, expected post surgery. Recommendation: Continue to monitor the patient in the ICU, continue oxygen, continue bronchodilators, continue GI and DVT prophylaxis, ambulation, incentive spirometry, may consider transfusion depending on the next hemoglobin level. Patient is not quite ready to be transferred out of the ICU yet. Patient remained generally weak, and she needs a significant amount of assistance while ambulating in the hallway. Will follow. Time with Patient: Less than 30
--- NOTE | 2018-07-09 16:01 | P.PN ---
Subjective Progress Note Date: 07/09/18 (delayed charting patient seen at 0800) Principal diagnosis: dyspnea Patient is a 73-year-old female with a past medical history of COPD, multivessel coronary artery disease and severe mitral regurg, breast cancer, hypothyroidism, prediabetes and vitamin D deficiency who presented for elective cardiac bypass surgery. On 07/07 she underwent [address] Marks. She underwent LIU to the LAD, SVG to the first and second obtuse marginal as well as the RCA. She had mitral valve annuloplasty and ligation of the left atrial appendage. Intraoperatively she received 2 units of packed red blood cells, 1 unit of FFP, and 1 unit of platelets. She subsequently was admitted to the ICU. Extubated on 07/07. Has been progressing well. Patient seen and examined at bedside. mild SOB and slightly dizzy after using IS. Pain controlled. No nausea. No BM. Not on any thyroid medication at home, was over 20 years ago. Objective - Vital Signs Vital signs: Vital Signs Temp 98 F 07/09/18 12:00 Pulse 71 07/09/18 15:02 Resp 24 07/09/18 15:02 BP 112/47 07/09/18 15:02 Pulse Ox 93 L 07/09/18 15:02 Intake & Output 07/08/18 07/09/18 07/09/18 18:59 06:59 18:59 Intake Total 727.101 628 104 Output Total 872 785 435 Balance -144.899 -157 -331 Weight 80.8 kg 80.5 kg Intake: IV 708 288 104 Albumin Human 5% 250 ml 250 In Empty Bag 1 bag @ 250 mls/hr IVPB Q1HR PRN Rx#: [id number] Lactated Ringers 1,000 ml 380 240 80 @ 20 mls/hr IV .Q24H [facility] Rx#:[id number] Pressure Bag (NS) 78 48 24 Intake, IV Titration 19.101 100 Amount Albumin Human 5% 250 ml 100 In Empty Bag 1 bag @ 250 mls/hr IVPB Q1HR PRN Rx#: [id number] Clevidipine Butyrate 25 15.234 mg In Empty Bag 1 bag @ 1 MG/HR 2 mls/hr IV .Q24H [facility] Rx#:[id number] Insulin Regular 100 unit 3.867 In Sodium Chloride 0.9% 100 ml @ Per Protocol IV .Q0M [facility] Rx#:[id number] Oral 240 Output: Chest Tube Drainage 260 280 230 Chest Tube Bilateral 190 210 190 Lateral Chest Chest Tube Lower 70 70 40 Mediastinal Urine 612 505 205 Other: Voiding Method Indwelling Catheter Indwelling Catheter Indwelling Catheter ABP, PAP, CO, CI - Last Documented Arterial Blood Pressure 122/44 Pulmonary Artery Pressure 44/24 Cardiac Output 4.1 Cardiac Index 2.4 - Exam General: non toxic, no distress, appears at stated age Derm: warm, dry Head: atraumatic, normocephalic, symmetric Eyes: EOMI, no lid lag, anicteric sclera Mouth: no lip lesion, mucus membranes dry Cardiovascular: S1S2 reg, positive posterior tibial pulse bilateral, Lungs: decresed breath sound bilateral bases, no rhonchi, no rales , no accessory muscle use +chest tube and mediastinal tube Abdominal: soft, nontender to palpation, no guarding, no appreciable organomegaly Ext: no gross muscle atrophy, no edema, no contractures Neuro: CN II-XI grossly intact, no focal neuro deficits Psych: Alert, oriented, appropriate affect - Labs CBC & Chem 7: 07/09/18 05:30 07/09/18 05:30 Labs: Abnormal Lab Results - Last 24 Hours (Table) 07/04/18 07/08/18 07/08/18 Range/Units 08:46 17:12 21:31 RBC (3.80-5.40) m/uL Hgb (11.4-16.0) gm/dL Hct (34.0-46.0) % RDW (11.5-15.5) % Plt Count (150-450) k/uL Neutrophils # (1.3-7.7) k/uL Lymphocytes # (1.0-4.8) k/uL Sodium (137-145) mmol/L BUN (7-17) mg/dL Creatinine (0.52-1.04) mg/dL Glucose (74-99) mg/dL POC Glucose (mg/dL) 142 H 143 H (75-99) mg/dL Calcium (8.4-10.2) mg/dL Magnesium (1.6-2.3) mg/dL AST (14-36) U/L Total Protein (6.3-8.2) g/dL Albumin (3.5-5.0) g/dL Crossmatch See Detail 07/09/18 07/09/18 07/09/18 Range/Units 02:07 05:30 05:30 RBC 2.14 L (3.80-5.40) m/uL Hgb 6.8 L* (11.4-16.0) gm/dL Hct 21.3 L (34.0-46.0) % RDW 17.1 H (11.5-15.5) % Plt Count 115 L (150-450) k/uL Neutrophils # 7.8 H (1.3-7.7) k/uL Lymphocytes # 0.9 L (1.0-4.8) k/uL Sodium 134 L (137-145) mmol/L BUN 32 H (7-17) mg/dL Creatinine 1.10 H (0.52-1.04) mg/dL Glucose 130 H (74-99) mg/dL POC Glucose (mg/dL) 116 H (75-99) mg/dL Calcium 7.8 L (8.4-10.2) mg/dL Magnesium 2.9 H (1.6-2.3) mg/dL AST 79 H (14-36) U/L Total Protein 5.0 L (6.3-8.2) g/dL Albumin 2.8 L (3.5-5.0) g/dL Crossmatch 07/09/18 07/09/18 Range/Units 06:53 12:05 RBC (3.80-5.40) m/uL Hgb (11.4-16.0) gm/dL Hct (34.0-46.0) % RDW (11.5-15.5) % Plt Count (150-450) k/uL Neutrophils # (1.3-7.7) k/uL Lymphocytes # (1.0-4.8) k/uL Sodium (137-145) mmol/L BUN (7-17) mg/dL Creatinine (0.52-1.04) mg/dL Glucose (74-99) mg/dL POC Glucose (mg/dL) 133 H 130 H (75-99) mg/dL Calcium (8.4-10.2) mg/dL Magnesium (1.6-2.3) mg/dL AST (14-36) U/L Total Protein (6.3-8.2) g/dL Albumin (3.5-5.0) g/dL Crossmatch Assessment and Plan Assessment: Patient is a 73 yo CF here with 5 vessel CABG and MV annuloplasty Prediabetes - A1C 5.9 06/24, down from 6.3 - SSI - follow BS Hypothyroidism - Not currently on medications at home. - TSH 1.47 in Jun 2018 Acute blood loss anemia and thrombocytopenia , anticipated outcome of surgery - repeat CBC in AM - stable - suggest oral iron on D/C patient had vomiting overnight Elevated Cr - likely due to lisinopril being started - repeat in AM CAD and mitral regurg s/p CABG and mitral valve annuloplasty - management per primary team COPD without exacerbation - Pulm recs - Bronchodilators - pulmonary hygiene Elevated liver enzymes, mild, resolved CHronic Vit D Deficiency Scoliosis Carotid arterial disease
[2018-07-09 17:02] LABS: Glucose,Whole Blood 132 mg/dL (75-99)
[2018-07-09] MEDS: FERROUS SULFATE 325 MG TAB PO SCH (17:02)
[2018-07-09 20:46] LABS: ABG Base Excess 4.6 mmol/L; ABG HCO3 30 mmol/L (21-25); ABG Oxygen Saturation 75.1 % (94-97); ABG PCO2 50 mmHg (35-45); ABG PH 7.38 (7.35-7.45); ABG TCO2 31 mmol/L (19-24)
--- NOTE | 2018-07-09 21:36 | XR ---
EXAMINATION TYPE: XR chest 1V portable DATE OF EXAM: 07/09/2018 COMPARISON: Today HISTORY: Short of breath. Hypoxemia TECHNIQUE: Single frontal view of the chest is obtained. FINDINGS: Heart is enlarged. There is pulmonary vascular congestion. There is been removal of the bi lateral chest tubes compared to exam this morning. There are clips at the right axilla. There is pepe eileen of the right central venous catheter. There are sternal wires. There is some blunting of the cos tophrenic angles with infiltrate at the left lung base. Tiny left pneumothorax unchanged. IMPRESSION: Pleural effusions are small. Left lower lobe pneumonia. There is probably mild heart dee lure unchanged.. Chest x-ray overall unchanged.
[2018-07-09 21:42] LABS: Glucose,Whole Blood 138 mg/dL (75-99)
[2018-07-09] MEDS: SENNOSIDES-DOCUSATE SODIUM 1 EACH TAB PO SCH (21:42)
[2018-07-09] MEDS ORDERED: FUROSEMIDE 10 MG/ML 2 ML VIAL IV ONE (21:53)
[2018-07-10] MEDS: HEPARIN SODIUM,PORCINE 5,000 UNIT/ML 1 ML VIAL SQ SCH ×4 (00:03→23:35)
[2018-07-10 02:33] LABS: Glucose,Whole Blood 138 mg/dL (75-99)
[2018-07-10 06:10] LABS: Anisocytosis Slight; HCT 20.8 % (34.0-46.0); HGB 6.8 gm/dL (11.4-16.0); Hypochromasia Slight; MCH 32.6 pg (25.0-35.0); MCHC 32.7 g/dL (31.0-37.0); MCV 99.7 fL (80.0-100.0); Macrocytosis Slight; Mean Platelet Volume 7.9; Platelet Count 119 k/uL (150-450); RBC 2.09 m/uL (3.80-5.40); RDW 16.4 % (11.5-15.5); WBC 9.7 k/uL (3.8-10.6)
[2018-07-10 06:30] LABS: Albumin 2.7 g/dL (3.5-5.0); Calcium 7.8 mg/dL (8.4-10.2); Potassium 4.6 mmol/L (3.5-5.1); Total Bilirubin 0.4 mg/dL (0.2-1.3); Total Protein 4.9 g/dL (6.3-8.2)
[2018-07-10 06:57] LABS: Glucose,Whole Blood 134 mg/dL (75-99)
[2018-07-10] MEDS: PANTOPRAZOLE 40 MG TABLET PO SCH (06:58)
[2018-07-10] MEDS: FERROUS SULFATE 325 MG TAB PO SCH ×3 (06:58→16:40)
[2018-07-10] MEDS: INSULIN ASPART 100 UNIT/ML 1 ML 10 ML VIAL SQ SCH ×4 (06:58→21:44)
--- NOTE | 2018-07-10 07:48 | P.PN ---
Subjective Progress Note Date: 07/10/18 Principal diagnosis: Coronary artery disease with left main disease, mitral regurgitation. Previous medical history of myocardial infarction, hyperlipidemia, chronic systolic heart failure with most recent ejection fraction 45%, right breast cancer with mastectomy, status post chemo and radiation in 1997, hypothyroidism, previous tobacco dependence with [id number]-fcen history, mild COPD with preoperative FEV1 63% of predicted, home oxygen use when necessary at bedtime, peripheral artery disease with dry gangrene of the fourth toe on the right foot, right carotid stenosis 50-79%, medical noncompliance, significant family history of coronary artery disease. POD #3 coronary artery bypass grafting 5 with sequential LIU to diagonal and LAD, reverse saphenous vein grafts to first and second obtuse marginal and right coronary artery. Mitral valve annuloplasty with a 24 mm physio-2 annuloplasty ring. Ligation of the left atrial appendage. Endovascular vein harvest of the greater saphenous vein from the left lower extremity from the ankle to the groin. Intraoperative transesophageal echocardiogram by anesthesia. Postoperative acute blood loss anemia, expected outcome given hemodilution and cardiopulmonary bypass pump The patient is currently sitting up in a recliner in no acute distress in the intensive care unit. Last night she had an episode of desaturation with pulse ox dipping into the 70s, she was placed on a nonrebreather and given IV Lasix with excellent diuresis and recovery of oxygen saturation up into the mid to high 90s. This morning she is on a nonrebreather mask with pulse ox in the high 90s, trialed on 15 L high flow nasal cannula with oxygen saturation dropping back down into the 70s, she was placed back on a nonrebreather with good recovery. She does complain of a stuffed nose and she does tend to be a mouth breather especially when sleeping. Her hemoglobin again is 6.8, she is not tachycardic nor hypotensive. She did have difficulty voiding yesterday with straight cath 1 and reinitiation of Marshall catheter per pulmonology with IV Lasix. She did ambulate twice in the hallway yesterday but did have difficulty with weakness and pain in her gangrenous toe. All chest tubes were pulled yesterday and she does state her pain is better controlled, she does deny shortness of breath. Other than that she has no new complaints. Objective - Vital Signs Vital signs: Vital Signs Temp 97.6 F 07/10/18 04:00 Pulse 68 07/10/18 04:00 Resp 12 07/10/18 04:00 BP 116/52 07/10/18 04:00 Pulse Ox 98 07/10/18 04:00 Intake & Output 07/09/18 07/10/18 07/10/18 18:59 06:59 18:59 Intake Total 454 Output Total 485 2400 Balance -31 -2400 Weight 78.2 kg Intake: IV 104 Lactated Ringers 1,000 ml 80 @ 20 mls/hr IV .Q24H [facility] Rx#:[id number] Pressure Bag (NS) 24 Oral 350 Output: Chest Tube Drainage 230 Chest Tube Bilateral 190 Lateral Chest Chest Tube Lower 40 Mediastinal Urine 255 2400 Uretheral (Marshall) 1100 Other: Voiding Method Indwelling Catheter Indwelling Catheter ABP, PAP, CO, CI - Last Documented Arterial Blood Pressure 122/44 Pulmonary Artery Pressure 44/24 Cardiac Output 4.1 Cardiac Index 2.4 - Constitutional General appearance: Present: cooperative, no acute distress - Respiratory Details: Lung sounds diminished bilaterally with coarse breath sounds in the left base. Respirations even, nonlabored. Currently on nonrebreather with oxygen saturation 99%. Able to achieve 750 mL on her incentive spirometry. Strong, nonproductive cough. - Cardiovascular Details: S1, S2 present. Regular rate and rhythm, sinus rhythm on telemetry. A/V epicardial pacemaker wires present, grounded. Sternum stable. Palpable peripheral pulses bilaterally. Trace bilateral lower extremity edema present. No calf pain or tenderness noted. Heart hugger in place with patient demonstrating appropriate use. Antiembolism stockings, SCDs present. - Gastrointestinal Gastrointestinal Comment(s): Abdomen soft, nontender, nondistended. Active bowel sounds present 4 quadrants. Tolerating diet. Positive flatus, negative bowel movement. - Genitourinary Genitourinary Comment(s): Marshall discontinued yesterday. Straight cathed 1 last night, reinitiation of Marshall catheter with IV Lasix per pulmonology, output 1550 mL overnight. - Integumentary Integumentary Comment(s): Skin is warm and dry with evidence of good perfusion. Anterior chest incision well approximated and covered with dry intact dressing. Left lower extremity EVH site well approximated. Fourth toe on right foot with black dry gangrene, present prior to admission and being followed by vascular surgery. - Neurologic Neurologic: Present: CNII-XII intact - Musculoskeletal Musculoskeletal: Present: generalized weakness, strength equal bilaterally - Psychiatric Psychiatric: Present: A&O x's 3, appropriate affect, intact judgment & insight - Allied health notes Allied health notes reviewed: nursing - Labs CBC & Chem 7: 07/10/18 05:17 07/10/18 05:17 Labs: Abnormal Lab Results - Last 24 Hours (Table) 07/09/18 07/09/18 07/09/18 Range/Units 12:05 16:58 20:41 RBC (3.80-5.40) m/uL Hgb (11.4-16.0) gm/dL Hct (34.0-46.0) % RDW (11.5-15.5) % Plt Count (150-450) k/uL ABG pCO2 50 H (35-45) mmHg ABG pO2 42 L* (83-108) mmHg ABG HCO3 30 H (21-25) mmol/L ABG Total CO2 31 H (19-24) mmol/L ABG O2 Saturation 75.1 L (94-97) % Sodium (137-145) mmol/L Carbon Dioxide (22-30) mmol/L BUN (7-17) mg/dL Creatinine (0.52-1.04) mg/dL Glucose (74-99) mg/dL POC Glucose (mg/dL) 130 H 132 H (75-99) mg/dL Calcium (8.4-10.2) mg/dL AST (14-36) U/L Total Protein (6.3-8.2) g/dL Albumin (3.5-5.0) g/dL 07/09/18 07/10/18 07/10/18 Range/Units 21:40 02:30 05:17 RBC (3.80-5.40) m/uL Hgb (11.4-16.0) gm/dL Hct (34.0-46.0) % RDW (11.5-15.5) % Plt Count (150-450) k/uL ABG pCO2 (35-45) mmHg ABG pO2 (83-108) mmHg ABG HCO3 (21-25) mmol/L ABG Total CO2 (19-24) mmol/L ABG O2 Saturation (94-97) % Sodium 136 L (137-145) mmol/L Carbon Dioxide 32 H (22-30) mmol/L BUN 37 H (7-17) mg/dL Creatinine 1.06 H (0.52-1.04) mg/dL Glucose 125 H (74-99) mg/dL POC Glucose (mg/dL) 138 H 138 H (75-99) mg/dL Calcium 7.8 L (8.4-10.2) mg/dL AST 50 H (14-36) U/L Total Protein 4.9 L (6.3-8.2) g/dL Albumin 2.7 L (3.5-5.0) g/dL 07/10/18 07/10/18 Range/Units 05:17 06:54 RBC 2.09 L (3.80-5.40) m/uL Hgb 6.8 L* (11.4-16.0) gm/dL Hct 20.8 L (34.0-46.0) % RDW 16.4 H (11.5-15.5) % Plt Count 119 L (150-450) k/uL ABG pCO2 (35-45) mmHg ABG pO2 (83-108) mmHg ABG HCO3 (21-25) mmol/L ABG Total CO2 (19-24) mmol/L ABG O2 Saturation (94-97) % Sodium (137-145) mmol/L Carbon Dioxide (22-30) mmol/L BUN (7-17) mg/dL Creatinine (0.52-1.04) mg/dL Glucose (74-99) mg/dL POC Glucose (mg/dL) 134 H (75-99) mg/dL Calcium (8.4-10.2) mg/dL AST (14-36) U/L Total Protein (6.3-8.2) g/dL Albumin (3.5-5.0) g/dL - Imaging and Cardiology Chest x-ray: image reviewed Assessment and Plan (1) CAD (coronary artery disease), [place] coronary artery Current Visit: Yes Status: Chronic Code(s): I25.10 - ATHSCL HEART DISEASE OF INUPI[place] CORONARY ARTERY W/O ANG PCTRS SNOMED Code(s): 6414991974013 (2) COPD (chronic obstructive pulmonary disease) Current Visit: Yes Status: Chronic Code(s): J44.9 - CHRONIC OBSTRUCTIVE PULMONARY DISEASE, UNSPECIFIED SNOMED Code(s): 74868347 (3) Carotid arterial disease Current Visit: Yes Status: Chronic Code(s): I77.9 - DISORDER OF ARTERIES AND ARTERIOLES, UNSPECIFIED SNOMED Code(s): 650683332 (4) Medical non-compliance Current Visit: Yes Status: Chronic Code(s): Z91.19 - PATIENT'S NONCOMPLIANCE W OTH MEDICAL TREATMENT AND REGIMEN SNOMED Code(s): 462159893 (5) Severe mitral regurgitation Current Visit: Yes Status: Chronic Code(s): I34.0 - NONRHEUMATIC MITRAL ( VALVE) INSUFFICIENCY SNOMED Code(s): 31638354 (6) Family history of heart disease Current Visit: Yes Status: Chronic Code(s): Z82.49 - FAMILY HX OF ISCHEM HEART DIS AND OTH DIS OF THE CIRC SYS SNOMED Code(s): 003096764 (7) Hypothyroid Current Visit: No Status: Resolved Code(s): E03.9 - HYPOTHYROIDISM, UNSPECIFIED SNOMED Code(s): 51150513 (8) Left main coronary artery disease Current Visit: Yes Status: Chronic Code(s): I25.10 - ATHSCL HEART DISEASE OF INUPIAT CORONARY ARTERY W/O ANG PCTRS SNOMED Code(s): 024432440 (9) Hyperlipidemia Current Visit: Yes Status: Chronic Code(s): E78.5 - HYPERLIPIDEMIA, UNSPECIFIED SNOMED Code(s): 78044278 (10) Chronic systolic heart failure Current Visit: Yes Status: Chronic Code(s): I50.22 - CHRONIC SYSTOLIC ( CONGESTIVE) HEART FAILURE SNOMED Code(s): 741987510 (11) Previous myocardial infarction older than 8 weeks Current Visit: No Status: Resolved Code(s): I25.2 - OLD MYOCARDIAL INFARCTION SNOMED Code(s): 7230859 (12) Peripheral artery disease Current Visit: Yes Status: Chronic Code(s): I73.9 - PERIPHERAL VASCULAR DISEASE, UNSPECIFIED SNOMED Code(s): 173985339 (13) On home O2 Current Visit: Yes Status: Chronic Code(s): Z99.81 - DEPENDENCE ON SUPPLEMENTAL OXYGEN SNOMED Code(s): 326581751570 (14) History of breast cancer Current Visit: No Status: Resolved Code(s): Z85.3 - PERSONAL HISTORY OF MALIGNANT NEOPLASM OF BREAST SNOMED Code(s): 636726109 (15) History of chemotherapy Current Visit: No Status: Resolved Code(s): Z92.21 - PERSONAL HISTORY OF ANTINEOPLASTIC CHEMOTHERAPY SNOMED Code(s): 256941847213327 (16) History of right mastectomy Current Visit: No Status: Resolved Code(s): Z90.11 - ACQUIRED ABSENCE OF RIGHT BREAST AND NIPPLE SNOMED Code(s): 779910526 (17) Tobacco dependence in remission Current Visit: No Status: Resolved Code(s): F17.201 - NICOTINE DEPENDENCE, UNSPECIFIED, IN REMISSION SNOMED Code(s): 924043990 Plan: 1. Continue aspirin, statin, Plavix, AMANDA inhibitor, beta gregg. Will increase beta gregg therapy as tolerated. 2. Wean O2 as tolerated. Encourage incentive spirometry 10 times every hour while awake. 3. Bronchodilators, inhaled steroids per pulmonology. 4. Will start IV lasix 20 mg every 8 hours. 5. Increase activity, ambulate as tolerated. PT/OT/cardiac rehab following. 6. Discontinue Marshall catheter. Bladder scan and straight cath as needed for residual greater than 300 mL. 7. Will monitor daily labs and x-rays. Electrolyte replacement per protocol. Will give 1 unit PRBCs. 8. Pain control with current medication regimen. 9. Insulin management per primary care service. 10. GI prophylaxis with Protonix, DVT prophylaxis with subcu heparin, SCDs. 11. Encourage continued smoking cessation. 12. Hold transfer to [address] [place] [address] cardiac stepdown unit until oxygen as able to be weaned.. 13. More recommendations to follow. Time with Patient: Greater than 30
--- NOTE | 2018-07-10 08:16 | XR ---
EXAMINATION TYPE: XR chest 1V portable DATE OF EXAM: 07/10/2018 COMPARISON: 07/09/2018 HISTORY: Shortness of breath FINDINGS: Noted is pulmonary venous congestion with scattered infiltrates. There is also cardiomegaly and small effusions. Median sternotomy changes noted. IMPRESSION: Findings compatible with congestive failure. Infiltrates of other etiology are not excluded. Clinical correlation and progress studies are recommended.
[2018-07-10] MEDS: MAGNESIUM HYDROXIDE 2,400 MG/10 ML CUP PO PRN ×2 (09:07→16:37)
[2018-07-10] MEDS: METOPROLOL TARTRATE 12.5 MG TAB PO SCH ×2 (09:07→21:45)
[2018-07-10] MEDS: ASPIRIN 325 MG TAB PO SCH (09:09)
[2018-07-10] MEDS: ATORVASTATIN 40 MG TAB PO SCH (09:10)
[2018-07-10] MEDS: CLOPIDOGREL 75 MG TAB PO SCH (09:10)
[2018-07-10] MEDS: MUPIROCIN 2% OINT 22 GM TUBE NASAL SCH ×2 (09:10→21:46)
[2018-07-10] MEDS: GABAPENTIN 300 MG CAP PO SCH ×4 (09:10→23:35)
[2018-07-10] MEDS: SYMBICORT 160-4.5 MCG INHALER INHALATION SCH ×2 (09:39→20:39)
[2018-07-10] MEDS: IPRATROPIUM-ALBUTEROL 3 ML NEB INHALATION SCH ×4 (09:39→20:39)
[2018-07-10 11:17] LABS: ABG PO2 42 mmHg (83-108)
--- NOTE | 2018-07-10 12:18 | P.PN ---
Subjective Progress Note Date: 07/10/18 Principal diagnosis: Status post CABG, and mitral valve repair. Postoperative day #3 This is a 73-year-old female with known history of COPD, Gold stage II, FEV1 is 63%. usually sees Dr. Perez, she is mostly on oxygen at night. Patient was recently found to have multivessel coronary artery disease and severe mitral regurgitation. She was cleared by Dr. Perez for surgery based on her PFTs done in the office, and on 07/07/2018, patient underwent multivessel myocardial revascularization, she underwent five-vessel bypass surgery, with LIU to LAD, SVG to the first and second obtuse marginal as well as the RCA. She also had mitral valve annuloplasty and ligation of left atrial appendage. Postoperatively, patient was on mechanical ventilation, and I was asked to see her on consultation. Her postoperative course was relatively uneventful. She hours after her surgery, I was called about her ventilator settings, her weaning ABG, and initially she was borderline for extubation. Hence we delayed the extubation about 2 hours. As her mental status improved and the patient became more awake, follow-up ABG was done, follow-up trial on pressure support and CPAP was given, patient was extubated uneventfully. Later at night the patient developed some desaturation, chest x-ray showed evidence of interstitial edema, responded to 20 mg of Lasix given and her O2 saturation improved presently on 15 L high flow nasal cannula, patient is not in any distress. Seen this morning, patient is doing well, relatively asymptomatic, and O2 saturation is in the mid 90s on 50% high flow nasal cannula. Patient was reevaluated today on 07/09/2018, remains in the ICU, she was extubated yesterday uneventfully. Patient is doing great, she feels generally weak, doing fairly well with incentive spirometry and area where between 500- 750 mL. She is already ambulating in the hallway, but she was noted to be quite weak with assistance while ambulating in front of the room in the ICU hallway. Denies any chest pain, no cough, no wheezing, no shortness of breath, remains on few liters nasal cannula, O2 saturation is in the low 90s. Chest x- ray this morning showed a trace of right pleural effusion, small left pleural effusion, and atelectasis. This is basically expected after CABG. All labs were reviewed, her hemoglobin was noted to be 6.8, however decision whether the patient is to be transfused would be left to the cardiac surgeon on the case. Renal functioning showed a BUN of 32 creatinine of 1.1. Creatinine is a bit worse compared to baseline before admission. Patient was reevaluated today on 07/10/2018, she is presently postoperative day #3 , CABG 5 with sequential LIU to diagonal and LAD, reverse saphenous vein graft to first and second obtuse marginal and right coronary artery mitral valve annuloplasty ligation of left atrial appendage. Last night the patient was noted to desaturate, and she required to be placed on non-rebreather mask for a period of time basically overnight. Today she is on a high flow nasal cannula, and she may have to go back on the nonrebreather mask if she doesn't continue to maintain adequate saturation. She was given Lasix last night, and she diuresed almost 2 L overnight. Chest x-ray continues to show some evidence of interstitial edema. And left lower lobe atelectasis with possibly a small tiny left pleural effusion. All chest tubes have been pulled out yesterday, and the patient is doing poorly with incentive spirometry. Hemoglobin remains low at 6.8. Electrolytes are normal BUN is 37 creatinine is 1.06. Objective - Vital Signs Vital signs: Vital Signs Temp 98.1 F 07/10/18 08:00 Pulse 71 07/10/18 12:00 Resp 16 07/10/18 09:00 BP 125/61 07/10/18 09:00 Pulse Ox 97 07/10/18 12:00 Intake & Output 07/09/18 07/10/18 07/10/18 18:59 06:59 18:59 Intake Total 454 Output Total 485 2400 Balance -31 -2400 Weight 78.2 kg Intake: IV 104 Lactated Ringers 1,000 ml 80 @ 20 mls/hr IV .Q24H [facility] Rx#:[id number] Pressure Bag (NS) 24 Oral 350 Output: Chest Tube Drainage 230 Chest Tube Bilateral 190 Lateral Chest Chest Tube Lower 40 Mediastinal Urine 255 2400 Uretheral (Marshall) 1100 Other: Voiding Method Indwelling Catheter Indwelling Catheter ABP, PAP, CO, CI - Last Documented Arterial Blood Pressure 122/44 Pulmonary Artery Pressure 44/24 Cardiac Output 4.1 Cardiac Index 2.4 - Exam Physical Exam: Revealed a 73-year-old female in no distress, on nonrebreather mask Head: Atraumatic, normocephalic. HEENT:[Neck is supple.] [No neck masses.] [No thyromegaly.] [No JVD.] PERRLA, EOMI, no icterus. Chest: [Diminished breath sounds and crackles at the bases. No rhonchi, no wheezes. Cardiac Exam: [Normal S1 and S2, no S3 gallop, no murmur.] Abdomen: [Soft, nontender, no megaly, no rebound, no guarding, normal bowel sounds.] Extremities: [No clubbing, no edema, no cyanosis.] Neurological Exam: [No focal neurologic deficit.] Skin: No rashes. Psychiatric: Normal mood affect and mental status examination. - Labs CBC & Chem 7: 07/10/18 05:17 07/10/18 05:17 Labs: Abnormal Lab Results - Last 24 Hours (Table) 07/09/18 07/09/18 07/09/18 Range/Units 12:05 16:58 20:41 RBC (3.80-5.40) m/uL Hgb (11.4-16.0) gm/dL Hct (34.0-46.0) % RDW (11.5-15.5) % Plt Count (150-450) k/uL ABG pCO2 50 H (35-45) mmHg ABG pO2 42 L* (83-108) mmHg ABG HCO3 30 H (21-25) mmol/L ABG Total CO2 31 H (19-24) mmol/L ABG O2 Saturation 75.1 L (94-97) % Sodium (137-145) mmol/L Carbon Dioxide (22-30) mmol/L BUN (7-17) mg/dL Creatinine (0.52-1.04) mg/dL Glucose (74-99) mg/dL POC Glucose (mg/dL) 130 H 132 H (75-99) mg/dL Calcium (8.4-10.2) mg/dL AST (14-36) U/L Total Protein (6.3-8.2) g/dL Albumin (3.5-5.0) g/dL 07/09/18 07/10/18 07/10/18 Range/Units 21:40 02:30 05:17 RBC (3.80-5.40) m/uL Hgb (11.4-16.0) gm/dL Hct (34.0-46.0) % RDW (11.5-15.5) % Plt Count (150-450) k/uL ABG pCO2 (35-45) mmHg ABG pO2 (83-108) mmHg ABG HCO3 (21-25) mmol/L ABG Total CO2 (19-24) mmol/L ABG O2 Saturation (94-97) % Sodium 136 L (137-145) mmol/L Carbon Dioxide 32 H (22-30) mmol/L BUN 37 H (7-17) mg/dL Creatinine 1.06 H (0.52-1.04) mg/dL Glucose 125 H (74-99) mg/dL POC Glucose (mg/dL) 138 H 138 H (75-99) mg/dL Calcium 7.8 L (8.4-10.2) mg/dL AST 50 H (14-36) U/L Total Protein 4.9 L (6.3-8.2) g/dL Albumin 2.7 L (3.5-5.0) g/dL 07/10/18 07/10/18 Range/Units 05:17 06:54 RBC 2.09 L (3.80-5.40) m/uL Hgb 6.8 L* (11.4-16.0) gm/dL Hct 20.8 L (34.0-46.0) % RDW 16.4 H (11.5-15.5) % Plt Count 119 L (150-450) k/uL ABG pCO2 (35-45) mmHg ABG pO2 (83-108) mmHg ABG HCO3 (21-25) mmol/L ABG Total CO2 (19-24) mmol/L ABG O2 Saturation (94-97) % Sodium (137-145) mmol/L Carbon Dioxide (22-30) mmol/L BUN (7-17) mg/dL Creatinine (0.52-1.04) mg/dL Glucose (74-99) mg/dL POC Glucose (mg/dL) 134 H (75-99) mg/dL Calcium (8.4-10.2) mg/dL AST (14-36) U/L Total Protein (6.3-8.2) g/dL Albumin (3.5-5.0) g/dL Assessment and Plan Assessment: Impression: 1 status post CABG, mitral valve annuloplasty, postoperative day #3 2 bilateral pleural effusions and atelectasis, expected post surgery/CABG. slightly improved based on the chest x-ray from today. 3 gold stage II COPD, FEV1 63%. Remains on bronchodilators. 4 history of hypothyroidism 5 multiple comorbidities including prediabetes, carotid artery disease, scoliosis, vitamin D deficiency, and acute blood loss anemia, expected post surgery. 6 chronic systolic congestive heart failure 7 carotid artery disease 8 chronic hypoxic respiratory failure, on home O2 especially at night. 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 Recommendation: Continue to monitor in the ICU, adjust FiO2 accordingly to maintain O2 saturation above 90%. Continue aspirin, statin Plavix jarett inhibitors beta blockers bronchodilators, updrafts, incentive spirometry, pain control, GI and DVT prophylaxis, ambulation, discontinue Marshall catheter if the patient could urinate on her own. Continue to ambulate in the hallway, patient will remain in the ICU, remains relatively ill, and not quite ready for discharge planning or transfer out of the ICU. We'll continue to follow. Time with Patient: Less than 30
[2018-07-10 12:19] LABS: Glucose,Whole Blood 117 mg/dL (75-99)
[2018-07-10] MEDS: CHOLECALCIFEROL 1,000 UNIT TAB PO SCH (12:31)
[2018-07-10] MEDS: ASCORBIC ACID 500 MG TAB PO SCH (12:31)
[2018-07-10] MEDS: MULTIVITAMINS, THERA 1 EACH TAB PO SCH (12:31)
[2018-07-10] MEDS: LISINOPRIL 5 MG TAB PO SCH (12:32)
[2018-07-10] MEDS: ONDANSETRON 4 MG/2 ML VIAL IVP PRN ×2 (16:05→22:50)
[2018-07-10] MEDS: FUROSEMIDE 10 MG/ML 2 ML VIAL IV SCH ×2 (16:36→23:35)
[2018-07-10 16:59] LABS: Glucose,Whole Blood 260 mg/dL (75-99)
--- NOTE | 2018-07-10 17:18 | P.PN ---
Subjective Patient status post coronary artery bypass Grafting and mitral valve repair and left atrial appendectomy She feels weak at this time. Blood pressure 105/46. His mercury afebrile 98F pulse rate in the 70s Breath sounds are reduced bilaterally no rhonchi no crackles Heart sounds. Soft Extended is warm Suggest Continue ICU and post CT surgery care Continue antiplatelet therapy and statins, low-dose beta blockers and jarett inhibitors Objective - Vital Signs Vital signs: Vital Signs Temp 98.0 F 07/10/18 16:00 Pulse 72 07/10/18 16:00 Resp 21 07/10/18 16:00 BP 105/46 07/10/18 16:00 Pulse Ox 97 07/10/18 16:00 Intake & Output 07/09/18 07/10/18 07/10/18 18:59 06:59 18:59 Intake Total 454 1000 Output Total 485 2400 200 Balance -31 -2400 800 Weight 78.2 kg 78.9 kg Intake: IV 104 Lactated Ringers 1,000 ml 80 @ 20 mls/hr IV .Q24H [facility] Rx#:[id number] Pressure Bag (NS) 24 Oral 350 1000 Blood Product 0 Rc Pheresis 2 As3 Unit 0 [id number] Output: Chest Tube Drainage 230 Chest Tube Bilateral 190 Lateral Chest Chest Tube Lower 40 Mediastinal Urine 255 2400 200 Uretheral (Marshall) 1100 Other: Voiding Method Indwelling Catheter Indwelling Catheter Bedside Commode Bedpan ABP, PAP, CO, CI - Last Documented Arterial Blood Pressure 122/44 Pulmonary Artery Pressure 44/24 Cardiac Output 4.1 Cardiac Index 2.4 - Labs CBC & Chem 7: 07/10/18 05:17 07/10/18 05:17 Labs: Abnormal Lab Results - Last 24 Hours (Table) 07/04/18 07/09/18 07/09/18 Range/Units 08:46 20:41 21:40 RBC (3.80-5.40) m/uL Hgb (11.4-16.0) gm/dL Hct (34.0-46.0) % RDW (11.5-15.5) % Plt Count (150-450) k/uL ABG pCO2 50 H (35-45) mmHg ABG pO2 42 L* (83-108) mmHg ABG HCO3 30 H (21-25) mmol/L ABG Total CO2 31 H (19-24) mmol/L ABG O2 Saturation 75.1 L (94-97) % Sodium (137-145) mmol/L Carbon Dioxide (22-30) mmol/L BUN (7-17) mg/dL Creatinine (0.52-1.04) mg/dL Glucose (74-99) mg/dL POC Glucose (mg/dL) 138 H (75-99) mg/dL Calcium (8.4-10.2) mg/dL AST (14-36) U/L Total Protein (6.3-8.2) g/dL Albumin (3.5-5.0) g/dL Crossmatch See Detail 07/10/18 07/10/18 07/10/18 Range/Units 02:30 05:17 05:17 RBC 2.09 L (3.80-5.40) m/uL Hgb 6.8 L* (11.4-16.0) gm/dL Hct 20.8 L (34.0-46.0) % RDW 16.4 H (11.5-15.5) % Plt Count 119 L (150-450) k/uL ABG pCO2 (35-45) mmHg ABG pO2 (83-108) mmHg ABG HCO3 (21-25) mmol/L ABG Total CO2 (19-24) mmol/L ABG O2 Saturation (94-97) % Sodium 136 L (137-145) mmol/L Carbon Dioxide 32 H (22-30) mmol/L BUN 37 H (7-17) mg/dL Creatinine 1.06 H (0.52-1.04) mg/dL Glucose 125 H (74-99) mg/dL POC Glucose (mg/dL) 138 H (75-99) mg/dL Calcium 7.8 L (8.4-10.2) mg/dL AST 50 H (14-36) U/L Total Protein 4.9 L (6.3-8.2) g/dL Albumin 2.7 L (3.5-5.0) g/dL Crossmatch 07/10/18 07/10/18 07/10/18 Range/Units 06:54 11:52 13:23 RBC (3.80-5.40) m/uL Hgb (11.4-16.0) gm/dL Hct (34.0-46.0) % RDW (11.5-15.5) % Plt Count (150-450) k/uL ABG pCO2 (35-45) mmHg ABG pO2 (83-108) mmHg ABG HCO3 (21-25) mmol/L ABG Total CO2 (19-24) mmol/L ABG O2 Saturation (94-97) % Sodium (137-145) mmol/L Carbon Dioxide (22-30) mmol/L BUN (7-17) mg/dL Creatinine (0.52-1.04) mg/dL Glucose (74-99) mg/dL POC Glucose (mg/dL) 134 H 117 H (75-99) mg/dL Calcium (8.4-10.2) mg/dL AST (14-36) U/L Total Protein (6.3-8.2) g/dL Albumin (3.5-5.0) g/dL Crossmatch See Detail 07/10/18 Range/Units 16:57 RBC (3.80-5.40) m/uL Hgb (11.4-16.0) gm/dL Hct (34.0-46.0) % RDW (11.5-15.5) % Plt Count (150-450) k/uL ABG pCO2 (35-45) mmHg ABG pO2 (83-108) mmHg ABG HCO3 (21-25) mmol/L ABG Total CO2 (19-24) mmol/L ABG O2 Saturation (94-97) % Sodium (137-145) mmol/L Carbon Dioxide (22-30) mmol/L BUN (7-17) mg/dL Creatinine (0.52-1.04) mg/dL Glucose (74-99) mg/dL POC Glucose (mg/dL) 260 H (75-99) mg/dL Calcium (8.4-10.2) mg/dL AST (14-36) U/L Total Protein (6.3-8.2) g/dL Albumin (3.5-5.0) g/dL Crossmatch
--- NOTE | 2018-07-10 17:51 | P.PN ---
Subjective Progress Note Date: 07/10/18 (delayed charting seen at 0845) Principal diagnosis: dyspnea Patient is a 73-year-old female with a past medical history of COPD, multivessel coronary artery disease and severe mitral regurg, breast cancer, hypothyroidism, prediabetes and vitamin D deficiency who presented for elective cardiac bypass surgery. On 07/07 she underwent [address] Marks. She underwent LIU to the LAD, SVG to the first and second obtuse marginal as well as the RCA. She had mitral valve annuloplasty and ligation of the left atrial appendage. Intraoperatively she received 2 units of packed red blood cells, 1 unit of FFP, and 1 unit of platelets. She subsequently was admitted to the ICU. Extubated on 07/07. Has been progressing well. Patient seen and examined at bedside. No SOB, No CP, Feeling hungry, did not sleep well last night. Objective - Vital Signs Vital signs: Vital Signs Temp 98.0 F 07/10/18 16:00 Pulse 72 07/10/18 16:00 Resp 21 07/10/18 16:00 BP 105/46 07/10/18 16:00 Pulse Ox 97 07/10/18 16:00 Intake & Output 07/09/18 07/10/18 07/10/18 18:59 06:59 18:59 Intake Total 454 1000 Output Total 485 2400 200 Balance -31 -2400 800 Weight 78.2 kg 78.9 kg Intake: IV 104 Lactated Ringers 1,000 ml 80 @ 20 mls/hr IV .Q24H [facility] Rx#:[id number] Pressure Bag (NS) 24 Oral 350 1000 Blood Product 0 Rc Pheresis 2 As3 Unit 0 [id number] Output: Chest Tube Drainage 230 Chest Tube Bilateral 190 Lateral Chest Chest Tube Lower 40 Mediastinal Urine 255 2400 200 Uretheral (Marshall) 1100 Other: Voiding Method Indwelling Catheter Indwelling Catheter Bedside Commode Bedpan ABP, PAP, CO, CI - Last Documented Arterial Blood Pressure 122/44 Pulmonary Artery Pressure 44/24 Cardiac Output 4.1 Cardiac Index 2.4 - Exam General: non toxic, no distress, appears at stated age Derm: warm, dry Head: atraumatic, normocephalic, symmetric Eyes: EOMI, no lid lag, anicteric sclera Mouth: no lip lesion, mucus membranes dry Cardiovascular: S1S2 reg, positive posterior tibial pulse bilateral, Lungs: decreased breath sound bilateral bases, no rhonchi, no rales , no accessory muscle use Abdominal: soft, nontender to palpation, no guarding, no appreciable organomegaly Ext: no gross muscle atrophy, no edema, no contractures Neuro: CN II-XI grossly intact, no focal neuro deficits Psych: Alert, oriented, appropriate affect - Labs CBC & Chem 7: 07/10/18 05:17 07/10/18 05:17 Labs: Abnormal Lab Results - Last 24 Hours (Table) 07/04/18 07/09/18 07/09/18 Range/Units 08:46 20:41 21:40 RBC (3.80-5.40) m/uL Hgb (11.4-16.0) gm/dL Hct (34.0-46.0) % RDW (11.5-15.5) % Plt Count (150-450) k/uL ABG pCO2 50 H (35-45) mmHg ABG pO2 42 L* (83-108) mmHg ABG HCO3 30 H (21-25) mmol/L ABG Total CO2 31 H (19-24) mmol/L ABG O2 Saturation 75.1 L (94-97) % Sodium (137-145) mmol/L Carbon Dioxide (22-30) mmol/L BUN (7-17) mg/dL Creatinine (0.52-1.04) mg/dL Glucose (74-99) mg/dL POC Glucose (mg/dL) 138 H (75-99) mg/dL Calcium (8.4-10.2) mg/dL AST (14-36) U/L Total Protein (6.3-8.2) g/dL Albumin (3.5-5.0) g/dL Crossmatch See Detail 07/10/18 07/10/18 07/10/18 Range/Units 02:30 05:17 05:17 RBC 2.09 L (3.80-5.40) m/uL Hgb 6.8 L* (11.4-16.0) gm/dL Hct 20.8 L (34.0-46.0) % RDW 16.4 H (11.5-15.5) % Plt Count 119 L (150-450) k/uL ABG pCO2 (35-45) mmHg ABG pO2 (83-108) mmHg ABG HCO3 (21-25) mmol/L ABG Total CO2 (19-24) mmol/L ABG O2 Saturation (94-97) % Sodium 136 L (137-145) mmol/L Carbon Dioxide 32 H (22-30) mmol/L BUN 37 H (7-17) mg/dL Creatinine 1.06 H (0.52-1.04) mg/dL Glucose 125 H (74-99) mg/dL POC Glucose (mg/dL) 138 H (75-99) mg/dL Calcium 7.8 L (8.4-10.2) mg/dL AST 50 H (14-36) U/L Total Protein 4.9 L (6.3-8.2) g/dL Albumin 2.7 L (3.5-5.0) g/dL Crossmatch 07/10/18 07/10/18 07/10/18 Range/Units 06:54 11:52 13:23 RBC (3.80-5.40) m/uL Hgb (11.4-16.0) gm/dL Hct (34.0-46.0) % RDW (11.5-15.5) % Plt Count (150-450) k/uL ABG pCO2 (35-45) mmHg ABG pO2 (83-108) mmHg ABG HCO3 (21-25) mmol/L ABG Total CO2 (19-24) mmol/L ABG O2 Saturation (94-97) % Sodium (137-145) mmol/L Carbon Dioxide (22-30) mmol/L BUN (7-17) mg/dL Creatinine (0.52-1.04) mg/dL Glucose (74-99) mg/dL POC Glucose (mg/dL) 134 H 117 H (75-99) mg/dL Calcium (8.4-10.2) mg/dL AST (14-36) U/L Total Protein (6.3-8.2) g/dL Albumin (3.5-5.0) g/dL Crossmatch See Detail 07/10/18 Range/Units 16:57 RBC (3.80-5.40) m/uL Hgb (11.4-16.0) gm/dL Hct (34.0-46.0) % RDW (11.5-15.5) % Plt Count (150-450) k/uL ABG pCO2 (35-45) mmHg ABG pO2 (83-108) mmHg ABG HCO3 (21-25) mmol/L ABG Total CO2 (19-24) mmol/L ABG O2 Saturation (94-97) % Sodium (137-145) mmol/L Carbon Dioxide (22-30) mmol/L BUN (7-17) mg/dL Creatinine (0.52-1.04) mg/dL Glucose (74-99) mg/dL POC Glucose (mg/dL) 260 H (75-99) mg/dL Calcium (8.4-10.2) mg/dL AST (14-36) U/L Total Protein (6.3-8.2) g/dL Albumin (3.5-5.0) g/dL Crossmatch Assessment and Plan Assessment: Patient is a 73 yo CF here with 5 vessel CABG and MV annuloplasty Prediabetes - A1C 5.9 06/24, down from 6.3 - stop SSI not need in over 24 hours Hypothyroidism - Not currently on medications at home. - TSH 1.47 in Jun 2018 Acute blood loss anemia and thrombocytopenia , anticipated outcome of surgery - repeat CBC in AM, consider pRBC d/w GL[employer]ING [employer] - stable - suggest oral iron on D/C patient had vomiting overnight Elevated Cr - likely due to lisinopril being started - repeat in AM CAD and mitral regurg s/p CABG and mitral valve annuloplasty - management per primary team COPD without exacerbation - Pulm recs - Bronchodilators - pulmonary hygiene Elevated liver enzymes, mild, resolved CHronic Vit D Deficiency Scoliosis Carotid arterial disease
[2018-07-10 21:12] LABS: Glucose,Whole Blood 118 mg/dL (75-99)
[2018-07-10] MEDS: SENNOSIDES-DOCUSATE SODIUM 1 EACH TAB PO SCH (21:47)
[2018-07-11 05:20] LABS: Anisocytosis Slight; HCT 28.2 % (34.0-46.0); MCH 31.1 pg (25.0-35.0); MCHC 31.3 g/dL (31.0-37.0); MCV 99.3 fL (80.0-100.0); Macrocytosis Slight; Mean Platelet Volume 7.6; Platelet Count 177 k/uL (150-450); RBC 2.84 m/uL (3.80-5.40); RDW 16.9 % (11.5-15.5); WBC 16.5 k/uL (3.8-10.6)
[2018-07-11 05:24] LABS: HGB 8.8 gm/dL (11.4-16.0)
[2018-07-11 05:27] LABS: Ionized Calcium 4.5 mg/dL (4.5-5.3)
[2018-07-11 05:31] LABS: Albumin 2.8 g/dL (3.5-5.0); Calcium 7.6 mg/dL (8.4-10.2); Magnesium 2.7 mg/dL (1.6-2.3); Total Bilirubin 1.3 mg/dL (0.2-1.3); Total Protein 5.2 g/dL (6.3-8.2)
[2018-07-11 07:11] LABS: Glucose,Whole Blood 140 mg/dL (75-99)
[2018-07-11] MEDS: SYMBICORT 160-4.5 MCG INHALER INHALATION SCH ×2 (07:48→19:15)
[2018-07-11] MEDS: IPRATROPIUM-ALBUTEROL 3 ML NEB INHALATION SCH ×4 (07:48→19:15)
[2018-07-11] MEDS: INSULIN ASPART 100 UNIT/ML 1 ML 10 ML VIAL SQ SCH ×4 (08:15→20:50)
[2018-07-11] MEDS: ATORVASTATIN 40 MG TAB PO SCH (08:40)
[2018-07-11] MEDS: LISINOPRIL 5 MG TAB PO SCH (08:40)
[2018-07-11] MEDS: ASPIRIN 325 MG TAB PO SCH (08:40)
[2018-07-11] MEDS: CLOPIDOGREL 75 MG TAB PO SCH (08:40)
[2018-07-11] MEDS: PANTOPRAZOLE 40 MG TABLET PO SCH (08:40)
[2018-07-11] MEDS: METOPROLOL TARTRATE 12.5 MG TAB PO SCH ×2 (08:40→20:47)
--- NOTE | 2018-07-11 08:40 | XR ---
EXAMINATION TYPE: XR chest 1V portable DATE OF EXAM: 07/11/2018 COMPARISON: 07/10/2018 INDICATION: Postop cardiac surgery TECHNIQUE: Single frontal view of the chest is obtained. FINDINGS: The heart size is enlarged. Sternotomy wires are present from cardiac valve surgery. The pulmonary vasculature is normal. There is a small to moderate left pleural effusion. Small right pleural effusion is present. Some adj acent compressive atelectasis may be present. Findings are slightly worsened over the interval. Surgical clips in the right axillary region. IMPRESSION: 1. Small to moderate left pleural effusion with a small right pleural effusion
[2018-07-11] MEDS: FERROUS SULFATE 325 MG TAB PO SCH ×2 (08:41→17:38)
[2018-07-11] MEDS: FUROSEMIDE 10 MG/ML 2 ML VIAL IV SCH ×2 (08:41→16:40)
[2018-07-11] MEDS: AMIODARONE 200 MG TAB PO SCH ×2 (08:41→20:46)
[2018-07-11] MEDS: GABAPENTIN 300 MG CAP PO SCH ×3 (08:41→22:30)
[2018-07-11] MEDS: HEPARIN SODIUM,PORCINE 5,000 UNIT/ML 1 ML VIAL SQ SCH ×2 (08:41→17:38)
[2018-07-11] MEDS: HYDROcodone/APAP 5-325MG 1 EACH TAB PO PRN (08:58)
[2018-07-11 10:10] LABS: Appearance,Urine Clear (Clear); Bilirubin,Urine Negative (Negative); Blood,Urine Negative (Negative); Color,Urine Light Yellow; Glucose,Urine (UA) Negative (Negative); Ketones,Urine Negative (Negative); Leukocyte Esterase,Urine Negative (Negative); Nitrite,Urine Negative (Negative); PH, Urine 5.5 (5.0-8.0); Protein,Urine Negative (Negative); Specific Gravity,Urine 1.007 (1.001-1.035); Urobilinogen,Urine <2.0 mg/dL (<2.0)
--- NOTE | 2018-07-11 11:24 | US ---
EXAMINATION TYPE: US chest DATE OF EXAM: 07/11/2018 COMPARISON: CXR CLINICAL HISTORY: Markings for thoracentesis by pulmonary staff. Pleural effusion TECHNIQUE: Targeted ultrasound of the posterior lower bilateral hemithoraces EXAM MEASUREMENTS: Right Pleural Effusion pocket size: 0.8 cm Left Pleural Effusion pocket size: 2.2 cm Right side NOT marked for possible thoracentesis outside the dept. Left side NOT marked for possible thoracentesis outside the dept. Pulmonologists are able to review the images in the patient?s EMR. IMPRESSIONS: 1. Minimal pleural fluid bilaterally
[2018-07-11 11:43] LABS: Glucose,Whole Blood 121 mg/dL (75-99)
[2018-07-11] MEDS ORDERED: ALBUMIN HUMAN 25% 50 ML in EMPTY BAG 1 BAG IVPB ONE (12:00)
[2018-07-11] MEDS: MULTIVITAMINS, THERA 1 EACH TAB PO SCH (12:11)
[2018-07-11] MEDS: ASCORBIC ACID 500 MG TAB PO SCH (12:11)
[2018-07-11] MEDS: CHOLECALCIFEROL 1,000 UNIT TAB PO SCH (12:11)
--- NOTE | 2018-07-11 12:42 | P.PN ---
Subjective Progress Note Date: 07/11/18 Principal diagnosis: Coronary artery disease with left main disease and mitral valve regurgitation, history of myocardial infarction, hyperlipidemia, chronic systolic heart failure with most recent ejection fraction of 45%, history of right breast cancer with mastectomy, status post chemo and radiation in 1997, hypothyroidism , previous tobacco dependence with [id number] history, COPD with preoperative FEV1 63% of predicted, home oxygen use on a when necessary basis at bedtime, peripheral artery disease with dry gangrene of the fourth toe on the right foot and bilateral ABIs of 0.51 to her left lower extremity and 0.52 to her right lower extremity, right carotid stenosis 50-79%, medical noncompliance, significant family history of coronary artery disease. POD #4 coronary artery bypass grafting 5 with sequential LIU to the diagonal coronary artery and left anterior descending coronary artery, a reverse greater saphenous vein grafts to first and second obtuse marginal and right coronary arteries. Mitral valve annuloplasty with a 24 mm physio-2 annuloplasty ring. Ligation of the left atrial appendage. Endovascular vein harvest of the greater saphenous vein from the right lower extremity from the ankle to the groin. Intraoperative transesophageal echocardiogram by anesthesia. Postoperative acute blood loss anemia, an expected outcome given hemodilution and cardiopulmonary bypass pump. Postoperative paroxysmal atrial fibrillation, an unexpected but potential outcome of surgery. The patient is currently sitting up to the bedside chair. She is in no acute distress. She denies any complaints of pain or shortness of breath at this time. The night RN reports that the patient went into paroxysmal atrial fibrillation early this morning around 2:30 AM which was treated accordingly. Currently the bedside monitor is demonstrating normal sinus rhythm heart rate 64. Oxygen saturations are 96% with airvo support 62% FiO2 45 L/m flow. Her labs this morning demonstrated a WBC count 16.5, hemoglobin 8.8, platelets 177, BUN 35, creatinine 0.83. She remains afebrile. She ambulated this morning from her room to the intensive care unit nurses station and back approximately 40 feet with 2 person assist. The patient had some urinary retention last night of 1.2 L requiring placement of a Marshall catheter. Atrial and ventricular epicardial pacemaker wires in place and grounded. Objective - Vital Signs Vital signs: Vital Signs Temp 97.6 F 07/11/18 04:00 Pulse 63 07/11/18 11:59 Resp 17 07/11/18 05:00 BP 131/52 07/11/18 05:00 Pulse Ox 97 07/11/18 11:45 Intake & Output 07/10/18 07/11/18 07/11/18 18:59 06:59 18:59 Intake Total 1000 310 Output Total 1400 1307 Balance -400 -997 Weight 78.9 kg 74.4 kg Intake: Oral 1000 Blood Product 0 310 Rc Pheresis 2 As3 Unit 0 310 [id number] Output: Urine 1400 1300 Stool 7 Other: Voiding Method Bedside Commode Bedside Commode Bedpan Bedpan ABP, PAP, CO, CI - Last Documented Arterial Blood Pressure 122/44 Pulmonary Artery Pressure 44/24 Cardiac Output 4.1 Cardiac Index 2.4 - Constitutional General appearance: Present: cooperative, no acute distress - Respiratory Details: Lung sounds are essentially clear to her bilateral upper lobes, diminished bilateral bases left greater than right. Respirations are symmetrical and nonlabored. Oxygen saturation are 97% with airvo support with FiO2 62% with a flow of 45 L/m. She is achieving 750 mL to 1000 mL on her incentive spirometry. Productive cough with clear thin sputum. - Cardiovascular Details: Regular rhythm and rate. S1 and S2 present, negative for S3, gallop or murmur. Sternum is stable. Bedside telemetry showing normal sinus rhythm heart rate 64. Heart hugger is in place and she is demonstrating appropriate use. +1 edema to her bilateral lower extremities. Knee-high ANGEL hose and sequential compression devices in place to bilateral lower extremities. - Gastrointestinal Gastrointestinal Comment(s): Abdomen soft, nontender and nondistended. Active bowel sounds all 4 abdominal quadrants. Tolerating oral intake. Bowel movement this a.m. - Genitourinary Genitourinary Comment(s): Marshall catheter for accurate I&O and urinary retention. 1.3 L output in the last 8 hours. - Integumentary Integumentary Comment(s): Skin is warm and dry, no clubbing or cyanosis present. Right foot fourth toe with dry gangrene. Midline sternal incision is clean, dry and approximated. No drainage or redness present. Gauze dressing clean and dry. Right lower extremity EVH sites clean, dry and approximated. No drainage or redness present. - Neurologic Neurologic: Present: CNII-XII intact - Musculoskeletal Musculoskeletal: Present: gait normal, generalized weakness, strength equal bilaterally - Psychiatric Psychiatric: Present: A&O x's 3, appropriate affect, intact judgment & insight - Allied health notes Allied health notes reviewed: nursing - Labs CBC & Chem 7: 07/11/18 04:53 07/11/18 04:53 Labs: Abnormal Lab Results - Last 24 Hours (Table) 07/04/18 07/10/18 07/10/18 Range/Units 08:46 11:52 13:23 WBC (3.8-10.6) k/uL RBC (3.80-5.40) m/uL Hgb (11.4-16.0) gm/dL Hct (34.0-46.0) % RDW (11.5-15.5) % Sodium (137-145) mmol/L Chloride (98-107) mmol/L Carbon Dioxide (22-30) mmol/L BUN (7-17) mg/dL Glucose (74-99) mg/dL POC Glucose (mg/dL) 117 H (75-99) mg/dL Calcium (8.4-10.2) mg/dL Magnesium (1.6-2.3) mg/dL Total Protein (6.3-8.2) g/dL Albumin (3.5-5.0) g/dL Crossmatch See Detail See Detail 07/10/18 07/10/18 07/11/18 Range/Units 16:57 20:57 04:53 WBC 16.5 H (3.8-10.6) k/uL RBC 2.84 L (3.80-5.40) m/uL Hgb 8.8 L D (11.4-16.0) gm/dL Hct 28.2 L (34.0-46.0) % RDW 16.9 H (11.5-15.5) % Sodium (137-145) mmol/L Chloride (98-107) mmol/L Carbon Dioxide (22-30) mmol/L BUN (7-17) mg/dL Glucose (74-99) mg/dL POC Glucose (mg/dL) 260 H 118 H (75-99) mg/dL Calcium (8.4-10.2) mg/dL Magnesium (1.6-2.3) mg/dL Total Protein (6.3-8.2) g/dL Albumin (3.5-5.0) g/dL Crossmatch 07/11/18 07/11/18 07/11/18 Range/Units 04:53 07:07 11:38 WBC (3.8-10.6) k/uL RBC (3.80-5.40) m/uL Hgb (11.4-16.0) gm/dL Hct (34.0-46.0) % RDW (11.5-15.5) % Sodium 134 L (137-145) mmol/L Chloride 95 L (98-107) mmol/L Carbon Dioxide 34 H (22-30) mmol/L BUN 36 H (7-17) mg/dL Glucose 172 H (74-99) mg/dL POC Glucose (mg/dL) 140 H 121 H (75-99) mg/dL Calcium 7.6 L (8.4-10.2) mg/dL Magnesium 2.7 H (1.6-2.3) mg/dL Total Protein 5.2 L (6.3-8.2) g/dL Albumin 2.8 L (3.5-5.0) g/dL Crossmatch - Imaging and Cardiology Chest x-ray: report reviewed, image reviewed Assessment and Plan (1) CAD (coronary artery disease), [place] coronary artery Current Visit: Yes Status: Chronic Code(s): I25.10 - ATHSCL HEART DISEASE OF [place] CORONARY ARTERY W/O ANG PCTRS SNOMED Code(s): 5730029263464 (2) COPD (chronic obstructive pulmonary disease) Current Visit: Yes Status: Chronic Code(s): J44.9 - CHRONIC OBSTRUCTIVE PULMONARY DISEASE, UNSPECIFIED SNOMED Code(s): 23153748 (3) Carotid arterial disease Current Visit: Yes Status: Chronic Code(s): I77.9 - DISORDER OF ARTERIES AND ARTERIOLES, UNSPECIFIED SNOMED Code(s): 702587847 (4) Chronic systolic heart failure Current Visit: Yes Status: Chronic Code(s): I50.22 - CHRONIC SYSTOLIC ( [place]GE[place]) HEART FAILURE SNOMED Code(s): 716448404 (5) Family history of heart disease Current Visit: Yes Status: Chronic Code(s): Z82.49 - FAMILY HX OF [place]HE[place] HEART DIS AND OTH DIS OF THE CIRC SYS SNOMED Code(s): 333884300 (6) Hyperlipidemia Current Visit: Yes Status: Chronic Code(s): E78.5 - HYPERLIPIDEMIA, UNSPECIFIED SNOMED Code(s): 28399684 (7) Left main coronary artery disease Current Visit: Yes Status: Chronic Code(s): I25.10 - ATHSCL HEART DISEASE OF [place] CORONARY ARTERY W/O ANG PCTRS SNOMED Code(s): 630258141 (8) Medical non-compliance Current Visit: Yes Status: Chronic Code(s): Z91.19 - PATIENT'S NONCOMPLIANCE W OTH MEDICAL TREATMENT AND REGIMEN SNOMED Code(s): 163318016 (9) On home O2 Current Visit: Yes Status: Chronic Code(s): Z99.81 - DEPENDENCE ON SUPPLEMENTAL OXYGEN SNOMED Code(s): 869222723983 (10) Peripheral artery disease Current Visit: Yes Status: Chronic Code(s): I73.9 - PERIPHERAL VASCULAR DISEASE, UNSPECIFIED SNOMED Code(s): 538334727 (11) Severe mitral regurgitation Current Visit: Yes Status: Chronic Code(s): I34.0 - NONRHEUMATIC MITRAL ( VALVE) INSUFFICIENCY SNOMED Code(s): 71219380 (12) History of breast cancer Current Visit: No Status: Resolved Code(s): Z85.3 - PERSONAL HISTORY OF MALIGNANT NEOPLASM OF BREAST SNOMED Code(s): 689015175 (13) History of chemotherapy Current Visit: No Status: Resolved Code(s): Z92.21 - PERSONAL HISTORY OF ANTINEOPLASTIC CHEMOTHERAPY SNOMED Code(s): 424598861524763 (14) History of right mastectomy Current Visit: No Status: Resolved Code(s): Z90.11 - ACQUIRED ABSENCE OF RIGHT BREAST AND NIPPLE SNOMED Code(s): 559550093 (15) Hypothyroid Current Visit: No Status: Resolved Code(s): E03.9 - HYPOTHYROIDISM, UNSPECIFIED SNOMED Code(s): 24239388 (16) Previous myocardial infarction older than 8 weeks Current Visit: No Status: Resolved Code(s): I25.2 - OLD MYOCARDIAL INFARCTION SNOMED Code(s): 6059920 (17) Tobacco dependence in remission Current Visit: No Status: Resolved Code(s): F17.201 - NICOTINE DEPENDENCE, UNSPECIFIED, IN REMISSION SNOMED Code(s): 233289608 Plan: 1. Continue aspirin, statin, Plavix, lisinopril and beta gregg. Will increase her beta gregg therapy as tolerated. 2. Wean O2 as tolerated. Encourage incentive spirometry 10 times every hour while awake. 3. Bronchodilators, inhaled steroids per pulmonology management. 4. Continue IV lasix 20 mg every 8 hours. 5. Increase activity, ambulate as tolerated. PT/OT/cardiac rehab following. 6. Continue Marshall catheter for urinary retention. 7. Will monitor daily labs and x-rays. Electrolyte replacement per protocol. 8. Pain control with current medication regimen. Discontinue [place]. 9. Insulin management per primary care service. 10. GI prophylaxis with Protonix, DVT prophylaxis with subcu heparin, SCDs. 11. Encourage continued smoking cessation. 12. Continue to hold transfer to [address] [place] [id number] cardiac stepdown unit until oxygen as able to be weaned.. 13. Albumin 25% 1 now. 14. Initiate Amiodarone 400 mg by mouth twice a day for atrial fibrillation prophylaxis. Discontinue amiodarone drip. 15. More recommendations to follow based on patient's clinical course. Time with Patient: Greater than 30
--- NOTE | 2018-07-11 13:30 | P.PN ---
Subjective Progress Note Date: 07/11/18 Principal diagnosis: Status post CABG, and mitral valve repair. Postoperative day #4 This is a 73-year-old female with known history of COPD, Gold stage II, FEV1 is 63%. usually sees Dr. Perez, she is mostly on oxygen at night. Patient was recently found to have multivessel coronary artery disease and severe mitral regurgitation. She was cleared by Dr. Perez for surgery based on her PFTs done in the office, and on 07/07/2018, patient underwent multivessel myocardial revascularization, she underwent five-vessel bypass surgery, with LIU to LAD, SVG to the first and second obtuse marginal as well as the RCA. She also had mitral valve annuloplasty and ligation of left atrial appendage. Postoperatively, patient was on mechanical ventilation, and I was asked to see her on consultation. Her postoperative course was relatively uneventful. She hours after her surgery, I was called about her ventilator settings, her weaning ABG, and initially she was borderline for extubation. Hence we delayed the extubation about 2 hours. As her mental status improved and the patient became more awake, follow-up ABG was done, follow-up trial on pressure support and CPAP was given, patient was extubated uneventfully. Later at night the patient developed some desaturation, chest x-ray showed evidence of interstitial edema, responded to 20 mg of Lasix given and her O2 saturation improved presently on 15 L high flow nasal cannula, patient is not in any distress. Seen this morning, patient is doing well, relatively asymptomatic, and O2 saturation is in the mid 90s on 50% high flow nasal cannula. Patient was reevaluated today on 07/09/2018, remains in the ICU, she was extubated yesterday uneventfully. Patient is doing great, she feels generally weak, doing fairly well with incentive spirometry and area where between 500- 750 mL. She is already ambulating in the hallway, but she was noted to be quite weak with assistance while ambulating in front of the room in the ICU hallway. Denies any chest pain, no cough, no wheezing, no shortness of breath, remains on few liters nasal cannula, O2 saturation is in the low 90s. Chest x- ray this morning showed a trace of right pleural effusion, small left pleural effusion, and atelectasis. This is basically expected after CABG. All labs were reviewed, her hemoglobin was noted to be 6.8, however decision whether the patient is to be transfused would be left to the cardiac surgeon on the case. Renal functioning showed a BUN of 32 creatinine of 1.1. Creatinine is a bit worse compared to baseline before admission. Patient was reevaluated today on 07/10/2018, she is presently postoperative day #3 , CABG 5 with sequential LIU to diagonal and LAD, reverse saphenous vein graft to first and second obtuse marginal and right coronary artery mitral valve annuloplasty ligation of left atrial appendage. Last night the patient was noted to desaturate, and she required to be placed on non-rebreather mask for a period of time basically overnight. Today she is on a high flow nasal cannula, and she may have to go back on the nonrebreather mask if she doesn't continue to maintain adequate saturation. She was given Lasix last night, and she diuresed almost 2 L overnight. Chest x-ray continues to show some evidence of interstitial edema. And left lower lobe atelectasis with possibly a small tiny left pleural effusion. All chest tubes have been pulled out yesterday, and the patient is doing poorly with incentive spirometry. Hemoglobin remains low at 6.8. Electrolytes are normal BUN is 37 creatinine is 1.06. Reevaluated today on 07/11/2018, patient is postoperative day #4. Remains in the intensive care unit, presently on a high flow nasal cannula, actually she is on airvo with high flow and high FiO2 to maintain O2 saturation in the 90s. Clinically the patient is doing better than expected, her chest x-ray continues to show interstitial edema, atelectasis at the left base, small bilateral pleural effusions, however the ultrasound which I requested and reviewed does not show much fluid to consider thoracentesis on this patient. Patient is on Lasix, her renal functioning is showing slight prerenal picture, hemoglobin today is better at 8.8. Patient was given a unit of packed RBCs yesterday in p.m.. BUN today is 36 creatinine 0.83. Objective - Vital Signs Vital signs: Vital Signs Temp 97.6 F 07/11/18 04:00 Pulse 63 07/11/18 11:59 Resp 17 07/11/18 05:00 BP 131/52 07/11/18 05:00 Pulse Ox 97 07/11/18 11:45 Intake & Output 07/10/18 07/11/18 07/11/18 18:59 06:59 18:59 Intake Total 1000 310 50 Output Total 1400 1307 250 Balance -400 -997 -200 Weight 78.9 kg 74.4 kg Intake: IV 50 Albumin Human 25% 50 ml 50 In Empty Bag 1 bag @ 100 mls/hr IVPB ONCE ONE Rx#: [id number] Oral 1000 Blood Product 0 310 Rc Pheresis 2 As3 Unit 0 310 [id number] Output: Urine 1400 1300 250 Stool 7 Other: Voiding Method Bedside Commode Bedside Commode Bedpan Bedpan ABP, PAP, CO, CI - Last Documented Arterial Blood Pressure 122/44 Pulmonary Artery Pressure 44/24 Cardiac Output 4.1 Cardiac Index 2.4 - Exam Physical Exam: Revealed a 73-year-old female in no distress, on nonrebreather mask Head: Atraumatic, normocephalic. HEENT:[Neck is supple.] [No neck masses.] [No thyromegaly.] [No JVD.] PERRLA, EOMI, no icterus. Chest: [Diminished breath sounds and dullness the bases. No rhonchi, no wheezes. Cardiac Exam: [Normal S1 and S2, no S3 gallop, no murmur.] Abdomen: [Soft, nontender, no megaly, no rebound, no guarding, normal bowel sounds.] Extremities: [No clubbing, no edema, no cyanosis.] Neurological Exam: [No focal neurologic deficit.] Skin: No rashes. Psychiatric: Normal mood affect and mental status examination. - Labs CBC & Chem 7: 07/11/18 04:53 07/11/18 04:53 Labs: Abnormal Lab Results - Last 24 Hours (Table) 07/04/18 07/10/18 07/10/18 Range/Units 08:46 13:23 16:57 WBC (3.8-10.6) k/uL RBC (3.80-5.40) m/uL Hgb (11.4-16.0) gm/dL Hct (34.0-46.0) % RDW (11.5-15.5) % Sodium (137-145) mmol/L Chloride (98-107) mmol/L Carbon Dioxide (22-30) mmol/L BUN (7-17) mg/dL Glucose (74-99) mg/dL POC Glucose (mg/dL) 260 H (75-99) mg/dL Calcium (8.4-10.2) mg/dL Magnesium (1.6-2.3) mg/dL Total Protein (6.3-8.2) g/dL Albumin (3.5-5.0) g/dL Crossmatch See Detail See Detail 07/10/18 07/11/18 07/11/18 Range/Units 20:57 04:53 04:53 WBC 16.5 H (3.8-10.6) k/uL RBC 2.84 L (3.80-5.40) m/uL Hgb 8.8 L D (11.4-16.0) gm/dL Hct 28.2 L (34.0-46.0) % RDW 16.9 H (11.5-15.5) % Sodium 134 L (137-145) mmol/L Chloride 95 L (98-107) mmol/L Carbon Dioxide 34 H (22-30) mmol/L BUN 36 H (7-17) mg/dL Glucose 172 H (74-99) mg/dL POC Glucose (mg/dL) 118 H (75-99) mg/dL Calcium 7.6 L (8.4-10.2) mg/dL Magnesium 2.7 H (1.6-2.3) mg/dL Total Protein 5.2 L (6.3-8.2) g/dL Albumin 2.8 L (3.5-5.0) g/dL Crossmatch 07/11/18 07/11/18 Range/Units 07:07 11:38 WBC (3.8-10.6) k/uL RBC (3.80-5.40) m/uL Hgb (11.4-16.0) gm/dL Hct (34.0-46.0) % RDW (11.5-15.5) % Sodium (137-145) mmol/L Chloride (98-107) mmol/L Carbon Dioxide (22-30) mmol/L BUN (7-17) mg/dL Glucose (74-99) mg/dL POC Glucose (mg/dL) 140 H 121 H (75-99) mg/dL Calcium (8.4-10.2) mg/dL Magnesium (1.6-2.3) mg/dL Total Protein (6.3-8.2) g/dL Albumin (3.5-5.0) g/dL Crossmatch Assessment and Plan Assessment: Impression: 1 status post CABG, mitral valve annuloplasty, postoperative day #4 2 bilateral pleural effusions and atelectasis, expected post surgery/CABG. slightly improved based on the chest x-ray from today. 3 gold stage II COPD, FEV1 63%. Remains on bronchodilators. 4 history of hypothyroidism 5 multiple comorbidities including prediabetes, carotid artery disease, scoliosis, vitamin D deficiency, and acute blood loss anemia, expected post surgery. 6 chronic systolic congestive heart failure 7 carotid artery disease 8 chronic hypoxic respiratory failure, on home O2 especially at night. 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 11 acute on chronic hypoxic respiratory failure requiring high FiO2, and high O2 flow. Recommendation: Continue to monitor in the ICU, adjust FiO2 accordingly to maintain O2 saturation above 90%. Continue aspirin, statin Plavix jarett inhibitors beta blockers bronchodilators, updrafts, incentive spirometry, pain control, GI and DVT prophylaxis, ambulation, discussed and reviewed the chest x-ray with the cardiac surgeon on the case, recommended ultrasound which I reviewed, and clearly showed not much fluid to be drained, patient will remain on diuretics, bronchodilators, continue incentive spirometry, continue ambulation, and we'll follow closely while in the ICU. Prognosis remains guarded. Time with Patient: Less than 30
--- NOTE | 2018-07-11 13:36 | P.PN ---
Subjective Patient still feels weak. Heart rate in the 60s No chest discomfort other than incisional pain Mild respiratory distress Blood pressure 131/52 mmHg pulse rate in the 60s respirations 17-20 Impression Coronary artery disease status post coronary artery bypass grafting left atrial appendectomy and mitral valve repair Suggest Continue current medications pulmonary ICU and CT surgery Objective - Vital Signs Vital signs: Vital Signs Temp 97.6 F 07/11/18 04:00 Pulse 63 07/11/18 11:59 Resp 17 07/11/18 05:00 BP 131/52 07/11/18 05:00 Pulse Ox 97 07/11/18 11:45 Intake & Output 07/10/18 07/11/18 07/11/18 18:59 06:59 18:59 Intake Total 1000 310 50 Output Total 1400 1307 250 Balance -400 -997 -200 Weight 78.9 kg 74.4 kg Intake: IV 50 Albumin Human 25% 50 ml 50 In Empty Bag 1 bag @ 100 mls/hr IVPB ONCE ONE Rx#: [id number] Oral 1000 Blood Product 0 310 Rc Pheresis 2 As3 Unit 0 310 [id number] Output: Urine 1400 1300 250 Stool 7 Other: Voiding Method Bedside Commode Bedside Commode Bedpan Bedpan ABP, PAP, CO, CI - Last Documented Arterial Blood Pressure 122/44 Pulmonary Artery Pressure 44/24 Cardiac Output 4.1 Cardiac Index 2.4 - Labs CBC & Chem 7: 07/11/18 04:53 07/11/18 04:53 Labs: Abnormal Lab Results - Last 24 Hours (Table) 07/04/18 07/10/18 07/10/18 Range/Units 08:46 13:23 16:57 WBC (3.8-10.6) k/uL RBC (3.80-5.40) m/uL Hgb (11.4-16.0) gm/dL Hct (34.0-46.0) % RDW (11.5-15.5) % Sodium (137-145) mmol/L Chloride (98-107) mmol/L Carbon Dioxide (22-30) mmol/L BUN (7-17) mg/dL Glucose (74-99) mg/dL POC Glucose (mg/dL) 260 H (75-99) mg/dL Calcium (8.4-10.2) mg/dL Magnesium (1.6-2.3) mg/dL Total Protein (6.3-8.2) g/dL Albumin (3.5-5.0) g/dL Crossmatch See Detail See Detail 07/10/18 07/11/18 07/11/18 Range/Units 20:57 04:53 04:53 WBC 16.5 H (3.8-10.6) k/uL RBC 2.84 L (3.80-5.40) m/uL Hgb 8.8 L D (11.4-16.0) gm/dL Hct 28.2 L (34.0-46.0) % RDW 16.9 H (11.5-15.5) % Sodium 134 L (137-145) mmol/L Chloride 95 L (98-107) mmol/L Carbon Dioxide 34 H (22-30) mmol/L BUN 36 H (7-17) mg/dL Glucose 172 H (74-99) mg/dL POC Glucose (mg/dL) 118 H (75-99) mg/dL Calcium 7.6 L (8.4-10.2) mg/dL Magnesium 2.7 H (1.6-2.3) mg/dL Total Protein 5.2 L (6.3-8.2) g/dL Albumin 2.8 L (3.5-5.0) g/dL Crossmatch 07/11/18 07/11/18 Range/Units 07:07 11:38 WBC (3.8-10.6) k/uL RBC (3.80-5.40) m/uL Hgb (11.4-16.0) gm/dL Hct (34.0-46.0) % RDW (11.5-15.5) % Sodium (137-145) mmol/L Chloride (98-107) mmol/L Carbon Dioxide (22-30) mmol/L BUN (7-17) mg/dL Glucose (74-99) mg/dL POC Glucose (mg/dL) 140 H 121 H (75-99) mg/dL Calcium (8.4-10.2) mg/dL Magnesium (1.6-2.3) mg/dL Total Protein (6.3-8.2) g/dL Albumin (3.5-5.0) g/dL Crossmatch
[2018-07-11] MEDS ORDERED: ALBUMIN HUMAN 5% 250 ML in EMPTY BAG 1 BAG IVPB STA (15:38)
--- NOTE | 2018-07-11 16:37 | P.PN ---
Subjective Progress Note Date: 07/11/18 (delayed charting patient seen at 0745) Principal diagnosis: dyspnea Patient is a 73-year-old female with a past medical history of COPD, multivessel coronary artery disease and severe mitral regurg, breast cancer, hypothyroidism, prediabetes and vitamin D deficiency who presented for elective cardiac bypass surgery. On 07/07 she underwent [address] Marks. She underwent LIU to the LAD, SVG to the first and second obtuse marginal as well as the RCA. She had mitral valve annuloplasty and ligation of the left atrial appendage. Intraoperatively she received 2 units of packed red blood cells, 1 unit of FFP, and 1 unit of platelets. She subsequently was admitted to the ICU. Extubated on 07/07. Has been progressing well. Overnight on 07/09 she became hypoxic and required a nonrebreather. She was transitioned on Arava though high flow on 07/10. Then overnight on 07/10 she developed A. fib with RVR needing an Amiodarone drip. She also developed urinary retention requiring reinsertion of the Mcdaniel catheter. Patient seen and examined at bedside. Pain is well controlled. Breathing is slightly worse today than yesterday. No nausea or vomiting. Had a bowel movement yesterday. Has been in treatment for her toe on the right hand side with Dr. García Per family it has been healing well. Objective - Vital Signs Vital signs: Vital Signs Temp 97.4 F L 07/11/18 12:00 Pulse 65 07/11/18 15:24 Resp 21 07/11/18 12:00 BP 86/39 07/11/18 12:00 Pulse Ox 95 07/11/18 15:14 Intake & Output 07/10/18 07/11/18 07/11/18 18:59 06:59 18:59 Intake Total 1000 310 50 Output Total 1400 1307 250 Balance -400 -997 -200 Weight 78.9 kg 74.4 kg Intake: IV 50 Albumin Human 25% 50 ml 50 In Empty Bag 1 bag @ 100 mls/hr IVPB ONCE ONE Rx#: [id number] Oral 1000 Blood Product 0 310 Rc Pheresis 2 As3 Unit 0 310 [id number] Output: Urine 1400 1300 250 Stool 7 Other: Voiding Method Bedside Commode Bedside Commode Indwelling Catheter Bedpan Bedpan ABP, PAP, CO, CI - Last Documented Arterial Blood Pressure 122/44 Pulmonary Artery Pressure 44/24 Cardiac Output 4.1 Cardiac Index 2.4 - Exam General: ill appearing, no distress, appears at stated age Derm: warm, dry Head: atraumatic, normocephalic, symmetric Eyes: EOMI, no lid lag, anicteric sclera Mouth: no lip lesion, mucus membranes dry Cardiovascular: S1S2 tachy, positive posterior tibial pulse bilateral, Lungs: decreased left with crackles on the right, no rhonchi, no rales , no accessory muscle use Abdominal: soft, nontender to palpation, no guarding, no appreciable organomegaly Ext: no gross muscle atrophy, no edema, no contractures Neuro: CN II-XI grossly intact, no focal neuro deficits Psych: Alert, oriented, appropriate affect - Labs CBC & Chem 7: 07/11/18 04:53 07/11/18 04:53 Labs: Abnormal Lab Results - Last 24 Hours (Table) 07/04/18 07/10/18 07/10/18 Range/Units 08:46 13:23 16:57 WBC (3.8-10.6) k/uL RBC (3.80-5.40) m/uL Hgb (11.4-16.0) gm/dL Hct (34.0-46.0) % RDW (11.5-15.5) % Sodium (137-145) mmol/L Chloride (98-107) mmol/L Carbon Dioxide (22-30) mmol/L BUN (7-17) mg/dL Glucose (74-99) mg/dL POC Glucose (mg/dL) 260 H (75-99) mg/dL Calcium (8.4-10.2) mg/dL Magnesium (1.6-2.3) mg/dL Total Protein (6.3-8.2) g/dL Albumin (3.5-5.0) g/dL Crossmatch See Detail See Detail 07/10/18 07/11/18 07/11/18 Range/Units 20:57 04:53 04:53 WBC 16.5 H (3.8-10.6) k/uL RBC 2.84 L (3.80-5.40) m/uL Hgb 8.8 L D (11.4-16.0) gm/dL Hct 28.2 L (34.0-46.0) % RDW 16.9 H (11.5-15.5) % Sodium 134 L (137-145) mmol/L Chloride 95 L (98-107) mmol/L Carbon Dioxide 34 H (22-30) mmol/L BUN 36 H (7-17) mg/dL Glucose 172 H (74-99) mg/dL POC Glucose (mg/dL) 118 H (75-99) mg/dL Calcium 7.6 L (8.4-10.2) mg/dL Magnesium 2.7 H (1.6-2.3) mg/dL Total Protein 5.2 L (6.3-8.2) g/dL Albumin 2.8 L (3.5-5.0) g/dL Crossmatch 07/11/18 07/11/18 Range/Units 07:07 11:38 WBC (3.8-10.6) k/uL RBC (3.80-5.40) m/uL Hgb (11.4-16.0) gm/dL Hct (34.0-46.0) % RDW (11.5-15.5) % Sodium (137-145) mmol/L Chloride (98-107) mmol/L Carbon Dioxide (22-30) mmol/L BUN (7-17) mg/dL Glucose (74-99) mg/dL POC Glucose (mg/dL) 140 H 121 H (75-99) mg/dL Calcium (8.4-10.2) mg/dL Magnesium (1.6-2.3) mg/dL Total Protein (6.3-8.2) g/dL Albumin (3.5-5.0) g/dL Crossmatch Assessment and Plan Assessment: Patient is a 73 yo CF here with 5 vessel CABG and MV annuloplasty Elevated WBC - check UA, no PNA on CXR - may be due to stress of urinary retention - follow fever profile Urinary retention - s/p mcdaniel cath Prediabetes - A1C 5.9 06/24, down from 6.3 - SSI, follow BS closely had increased sugars on07/10. Right 4 toe chronic ulcer - no signs of infection - continue monitoring - outpatient follow-up A fib - on amio gtt plan is to transition to oral todays Acute blood loss anemia and thrombocytopenia , anticipated outcome of surgery - s/p 1 additional unit on 07/10. - stable - Oral supplementation CAD and mitral regurg s/p CABG and mitral valve annuloplasty - management per primary team COPD without exacerbation - Pulm recs - Bronchodilators - pulmonary hygiene Hypothyroidism - Not currently on medications at home. - TSH 1.47 in Jun 2018 Elevated liver enzymes, mild, resolved CHronic Vit D Deficiency Scoliosis Carotid arterial disease
[2018-07-11 17:24] LABS: Glucose,Whole Blood 133 mg/dL (75-99)
[2018-07-11] MEDS: DEXTROSE/WATER 1 500ML.BAG with DOPamine DRIP 800 MG IV SCH (17:38)
[2018-07-11] MEDS: guaiFENesin 600 MG TABLET.ER PO SCH (20:47)
[2018-07-11] MEDS: SENNOSIDES-DOCUSATE SODIUM 1 EACH TAB PO SCH (20:48)
[2018-07-11 21:15] LABS: Glucose,Whole Blood 128 mg/dL (75-99)
[2018-07-12] MEDS: FUROSEMIDE 10 MG/ML 2 ML VIAL IV SCH ×3 (00:04→17:27)
[2018-07-12] MEDS: HEPARIN SODIUM,PORCINE 5,000 UNIT/ML 1 ML VIAL SQ SCH ×3 (00:04→17:27)
[2018-07-12 05:49] LABS: Anisocytosis Slight; HCT 24.8 % (34.0-46.0); HGB 7.6 gm/dL (11.4-16.0); Hypochromasia Moderate; MCHC 30.8 g/dL (31.0-37.0); MCV 103.8 fL (80.0-100.0); Macrocytosis Moderate; Mean Platelet Volume 7.4; Platelet Count 157 k/uL (150-450); RBC 2.39 m/uL (3.80-5.40); RDW 17.1 % (11.5-15.5); WBC 11.8 k/uL (3.8-10.6)
[2018-07-12 06:07] LABS: Albumin 2.9 g/dL (3.5-5.0); Calcium 7.9 mg/dL (8.4-10.2); Potassium 4.1 mmol/L (3.5-5.1); Total Bilirubin 0.9 mg/dL (0.2-1.3); Total Protein 5.3 g/dL (6.3-8.2)
--- NOTE | 2018-07-12 07:06 | XR ---
EXAMINATION TYPE: XR chest 1V portable DATE OF EXAM: 07/12/2018 HISTORY: post cardiac surgery. REFERENCE: Previous study dated 07/11/2018. FINDINGS: There has been a midline sternotomy. There continues be bibasilar airspace disease. There are bilateral effusions, greater on the left gage n the right. Heart size is difficult to assess. IMPRESSION: 1. BIBASILAR AIRSPACE DISEASE. 2. BILATERAL EFFUSIONS, GREATER ON THE LEFT THAN THE RIGHT.
[2018-07-12 07:33] LABS: Glucose,Whole Blood 104 mg/dL (75-99)
[2018-07-12] MEDS: SYMBICORT 160-4.5 MCG INHALER INHALATION SCH ×2 (08:31→20:23)
[2018-07-12] MEDS: IPRATROPIUM-ALBUTEROL 3 ML NEB INHALATION SCH ×4 (08:31→20:09)
[2018-07-12] MEDS: ASPIRIN 325 MG TAB PO SCH (09:25)
[2018-07-12] MEDS: AMIODARONE 200 MG TAB PO SCH ×2 (09:25→20:56)
[2018-07-12] MEDS: guaiFENesin 600 MG TABLET.ER PO SCH ×2 (09:25→20:55)
[2018-07-12] MEDS: CHOLECALCIFEROL 1,000 UNIT TAB PO SCH (09:25)
[2018-07-12] MEDS: MULTIVITAMINS, THERA 1 EACH TAB PO SCH (09:25)
[2018-07-12] MEDS: ASCORBIC ACID 500 MG TAB PO SCH (09:25)
[2018-07-12] MEDS: PANTOPRAZOLE 40 MG TABLET PO SCH (09:25)
[2018-07-12] MEDS: FERROUS SULFATE 325 MG TAB PO SCH ×2 (09:25→17:28)
[2018-07-12] MEDS: CLOPIDOGREL 75 MG TAB PO SCH (09:25)
[2018-07-12] MEDS: METOPROLOL TARTRATE 12.5 MG TAB PO SCH ×2 (09:26→20:55)
[2018-07-12] MEDS: ATORVASTATIN 40 MG TAB PO SCH (09:27)
[2018-07-12] MEDS: GABAPENTIN 300 MG CAP PO SCH ×3 (09:27→22:33)
[2018-07-12] MEDS: INSULIN ASPART 100 UNIT/ML 1 ML 10 ML VIAL SQ SCH ×4 (09:31→20:55)
[2018-07-12] MEDS: ACETAMINOPHEN TAB 325 MG TAB PO PRN (09:39)
[2018-07-12 11:53] LABS: Glucose,Whole Blood 100 mg/dL (75-99)
--- NOTE | 2018-07-12 11:59 | P.PN ---
Subjective Progress Note Date: 07/12/18 Principal diagnosis: Coronary artery disease with left main disease and mitral valve regurgitation, history of myocardial infarction, hyperlipidemia, chronic systolic heart failure with most recent ejection fraction of 45%, history of right breast cancer with mastectomy, status post chemo and radiation in 1997, hypothyroidism , previous tobacco dependence with [id number] history, COPD with preoperative FEV1 63% of predicted, home oxygen use on a when necessary basis at bedtime, peripheral artery disease with dry gangrene of the fourth toe on the right foot and bilateral ABIs of 0.51 to her left lower extremity and 0.52 to her right lower extremity, right carotid stenosis 50-79%, medical noncompliance, significant family history of coronary artery disease. POD #5 coronary artery bypass grafting 5 with sequential LIU to the diagonal coronary artery and left anterior descending coronary artery, a reverse greater saphenous vein grafts to first and second obtuse marginal and right coronary arteries. Mitral valve annuloplasty with a 24 mm physio-2 annuloplasty ring. Ligation of the left atrial appendage. Endovascular vein harvest of the greater saphenous vein from the right lower extremity from the ankle to the groin. Intraoperative transesophageal echocardiogram by anesthesia. Postoperative acute blood loss anemia, an expected outcome given hemodilution and cardiopulmonary bypass pump. Postoperative paroxysmal atrial fibrillation, an unexpected but potential outcome of surgery. The patient is currently sitting up to the bedside chair. She is in no acute distress. She denies any complaints of pain or shortness of breath at this time. No further episodes of atrial fibrillation, currently the bedside monitor is demonstrating normal sinus rhythm heart rate 71. Oxygen saturations are 93% with airvo support 61% FiO2 50 L/m flow. Her labs this morning demonstrated a WBC count 11.8, hemoglobin 7.6, platelets 157, BUN 36, creatinine 0.91. She remains afebrile. She ambulated this morning from her room to the intensive care unit nurses station and back approximately 40 feet with 2 person assist. Atrial and ventricular epicardial pacemaker wires in place and grounded. Objective - Vital Signs Vital signs: Vital Signs Temp 98.1 F 07/12/18 08:00 Pulse 68 07/12/18 08:42 Resp 22 07/12/18 08:00 BP 102/45 07/12/18 08:00 Pulse Ox 97 07/12/18 08:00 Intake & Output 07/11/18 07/12/1807/12/19 18:59 06:59 18:59 Intake Total 50 370 150 Output Total 325 1600 450 Balance -275 -8970 -300 Weight 72.4 kg Intake: IV 50 250 Albumin Human 25% 50 ml 50 In Empty Bag 1 bag @ 100 mls/hr IVPB ONCE ONE Rx#: [id number] Albumin Human 5% 250 ml 250 In Empty Bag 1 bag @ 250 mls/hr IVPB ONCE STA Rx#: [id number] Oral 120 150 Output: Urine 325 1600 450 Stool 0 Other: Voiding Method Indwelling Catheter Indwelling Catheter Indwelling Catheter # Bowel Movements 4 ABP, PAP, CO, CI - Last Documented Arterial Blood Pressure 122/44 Pulmonary Artery Pressure 44/24 Cardiac Output 4.1 Cardiac Index 2.4 - Constitutional General appearance: Present: cooperative, no acute distress, obese - Respiratory Details: Lung sounds are essentially clear to her bilateral upper lobes, diminished bilateral bases left greater than right. Respirations are symmetrical and nonlabored. Oxygen saturation are 94% with airvo support with FiO2 61% with a flow of 50 L/m. She is achieving 500 mL to 750 mL on her incentive spirometry. Productive cough with clear thin sputum. - Cardiovascular Details: Regular rhythm and rate. S1 and S2 present, negative for S3, gallop or murmur. Sternum is stable. Bedside telemetry showing normal sinus rhythm heart rate 71. Heart hugger is in place and she is demonstrating appropriate use. +1 edema to her bilateral lower extremities. Knee-high ANGEL hose and sequential compression devices in place to bilateral lower extremities. Atrial and ventricular epicardial pacemaker wires in place and grounded. Dopamine drip remains infusing at 2 mcg/kg/m. - Gastrointestinal Gastrointestinal Comment(s): Abdomen is soft, nontender and nondistended. Active bowel sounds all 4 abdominal quadrants. Tolerating oral intake. Bowel movement yesterday 2018. - Genitourinary Genitourinary Comment(s): Marshall catheter for accurate I&O and urine retention. Draining clear yellow urine. 1.6 L output in the last 8 hours. - Integumentary Integumentary Comment(s): Skin is warm and dry. No clubbing and cyanosis present. Midline sternal incision is clean, dry and approximated. No drainage or redness is present. Gauze dressing is clean, dry and in place. Right lower extremity EVH site clean , dry and approximated. No drainage or redness present. Right foot fourth toe with dry gangrene present. No drainage or redness present. - Neurologic Neurologic: Present: CNII-XII intact - Musculoskeletal Musculoskeletal: Present: gait normal, generalized weakness, strength equal bilaterally - Psychiatric Psychiatric: Present: A&O x's 3, appropriate affect, intact judgment & insight - Allied health notes Allied health notes reviewed: nursing - Labs CBC & Chem 7: 07/12/18 05:01 07/12/18 05:01 Labs: Abnormal Lab Results - Last 24 Hours (Table) 07/11/18 07/11/18 07/12/18 Range/Units 17:09 20:48 05:01 WBC 11.8 H (3.8-10.6) k/uL RBC 2.39 L (3.80-5.40) m/uL Hgb 7.6 L (11.4-16.0) gm/dL Hct 24.8 L (34.0-46.0) % MCV 103.8 H (80.0-100.0) fL MCHC 30.8 L (31.0-37.0) g/dL RDW 17.1 H (11.5-15.5) % Sodium (137-145) mmol/L BUN (7-17) mg/dL Glucose (74-99) mg/dL POC Glucose (mg/dL) 133 H 128 H (75-99) mg/dL Calcium (8.4-10.2) mg/dL Total Protein (6.3-8.2) g/dL Albumin (3.5-5.0) g/dL 07/12/18 07/12/18 Range/Units 05:01 07:29 WBC (3.8-10.6) k/uL RBC (3.80-5.40) m/uL Hgb (11.4-16.0) gm/dL Hct (34.0-46.0) % MCV (80.0-100.0) fL MCHC (31.0-37.0) g/dL RDW (11.5-15.5) % Sodium 135 L (137-145) mmol/L BUN 36 H (7-17) mg/dL Glucose 103 H (74-99) mg/dL POC Glucose (mg/dL) 104 H (75-99) mg/dL Calcium 7.9 L (8.4-10.2) mg/dL Total Protein 5.3 L (6.3-8.2) g/dL Albumin 2.9 L (3.5-5.0) g/dL Microbiology - Last 24 Hours (Table) 07/11/18 19:30 Gram Stain - Preliminary Sputum - Imaging and Cardiology Chest x-ray: report reviewed, image reviewed Assessment and Plan (1) CAD (coronary artery disease), [place] coronary artery Current Visit: Yes Status: Chronic Code(s): I25.10 - ATHSCL HEART DISEASE OF [place] CORONARY ARTERY W/O ANG PCTRS SNOMED Code(s): 6218857994504 (2) COPD (chronic obstructive pulmonary disease) Current Visit: Yes Status: Chronic Code(s): J44.9 - CHRONIC OBSTRUCTIVE PULMONARY DISEASE, UNSPECIFIED SNOMED Code(s): 53404058 (3) Carotid arterial disease Current Visit: Yes Status: Chronic Code(s): I77.9 - DISORDER OF ARTERIES AND ARTERIOLES, UNSPECIFIED SNOMED Code(s): 641009104 (4) Chronic systolic heart failure Current Visit: Yes Status: Chronic Code(s): I50.22 - CHRONIC SYSTOLIC ( CONGESTIVE) HEART FAILURE SNOMED Code(s): 238644884 (5) Family history of heart disease Current Visit: Yes Status: Chronic Code(s): Z82.49 - FAMILY HX OF ISCHEM HEART DIS AND OTH DIS OF THE CIRC SYS SNOMED Code(s): 545287453 (6) Hyperlipidemia Current Visit: Yes Status: Chronic Code(s): E78.5 - HYPERLIPIDEMIA, UNSPECIFIED SNOMED Code(s): 93132653 (7) Left main coronary artery disease Current Visit: Yes Status: Chronic Code(s): I25.10 - ATHSCL HEART DISEASE OF [place] CORONARY ARTERY W/O ANG PCTRS SNOMED Code(s): 808511401 (8) Medical non-compliance Current Visit: Yes Status: Chronic Code(s): Z91.19 - PATIENT'S NONCOMPLIANCE W OTH MEDICAL TREATMENT AND REGIMEN SNOMED Code(s): 034904511 (9) On home O2 Current Visit: Yes Status: Chronic Code(s): Z99.81 - DEPENDENCE ON SUPPLEMENTAL OXYGEN SNOMED Code(s): 774522198653 (10) Peripheral artery disease Current Visit: Yes Status: Chronic Code(s): I73.9 - PERIPHERAL VASCULAR DISEASE, UNSPECIFIED SNOMED Code(s): 846735038 (11) Severe mitral regurgitation Current Visit: Yes Status: Chronic Code(s): I34.0 - NONRHEUMATIC MITRAL ( VALVE) INSUFFICIENCY SNOMED Code(s): 14186628 (12) History of breast cancer Current Visit: No Status: Resolved Code(s): Z85.3 - PERSONAL HISTORY OF MALIGNANT NEOPLASM OF BREAST SNOMED Code(s): 809937414 (13) History of chemotherapy Current Visit: No Status: Resolved Code(s): Z92.21 - PERSONAL HISTORY OF ANTINEOPLASTIC CHEMOTHERAPY SNOMED Code(s): 089373258459738 (14) History of right mastectomy Current Visit: No Status: Resolved Code(s): Z90.11 - ACQUIRED ABSENCE OF RIGHT BREAST AND NIPPLE SNOMED Code(s): 775728170 (15) Hypothyroid Current Visit: No Status: Resolved Code(s): E03.9 - HYPOTHYROIDISM, UNSPECIFIED SNOMED Code(s): 87370039 (16) Previous myocardial infarction older than 8 weeks Current Visit: No Status: Resolved Code(s): I25.2 - OLD MYOCARDIAL INFARCTION SNOMED Code(s): 4600037 (17) Tobacco dependence in remission Current Visit: No Status: Resolved Code(s): F17.201 - NICOTINE DEPENDENCE, UNSPECIFIED, IN REMISSION SNOMED Code(s): 371916676 Plan: 1. Continue aspirin, statin, Plavix, beta gregg and decrease lisinopril to 2.5 mg by mouth daily at noon. Will increase her beta gregg therapy as tolerated. 2. Wean O2 as tolerated. Encourage incentive spirometry 10 times every hour while awake. 3. Bronchodilators, inhaled steroids per pulmonology management. 4. Continue IV lasix 20 mg every 8 hours. 5. Increase activity, ambulate as tolerated. PT/OT/cardiac rehab following. 6. Continue Marshall catheter for urinary retention. Continue dopamine drip at 2 mcg/kg/m. 7. Will monitor daily labs and x-rays. Electrolyte replacement per protocol. 8. Pain control with current medication regimen. 9. Insulin management per primary care service. 10. GI prophylaxis with Protonix, DVT prophylaxis with subcu heparin, SCDs. 11. Encourage continued smoking cessation. 12. Continue to hold transfer to [address] [place] [address] cardiac stepdown unit until oxygen as able to be weaned.. 13. Continue Amiodarone 400 mg by mouth twice a day for atrial fibrillation prophylaxis. 14. More recommendations to follow based on patient's clinical course. Time with Patient: Greater than 30
[2018-07-12] MEDS ORDERED: LISINOPRIL 5 MG TAB PO SCH (12:00)
[2018-07-12] MEDS: LISINOPRIL 2.5 MG TAB PO SCH (12:07)
--- NOTE | 2018-07-12 12:09 | P.PN ---
Subjective Progress Note Date: 07/12/18 Principal diagnosis: Status post CABG, and mitral valve repair. Postoperative day #5 This is a 73-year-old female with known history of COPD, Gold stage II, FEV1 is 63%. usually sees Dr. Perez, she is mostly on oxygen at night. Patient was recently found to have multivessel coronary artery disease and severe mitral regurgitation. She was cleared by Dr. Perez for surgery based on her PFTs done in the office, and on 07/07/2018, patient underwent multivessel myocardial revascularization, she underwent five-vessel bypass surgery, with LIU to LAD, SVG to the first and second obtuse marginal as well as the RCA. She also had mitral valve annuloplasty and ligation of left atrial appendage. Postoperatively, patient was on mechanical ventilation, and I was asked to see her on consultation. Her postoperative course was relatively uneventful. She hours after her surgery, I was called about her ventilator settings, her weaning ABG, and initially she was borderline for extubation. Hence we delayed the extubation about 2 hours. As her mental status improved and the patient became more awake, follow-up ABG was done, follow-up trial on pressure support and CPAP was given, patient was extubated uneventfully. Later at night the patient developed some desaturation, chest x-ray showed evidence of interstitial edema, responded to 20 mg of Lasix given and her O2 saturation improved presently on 15 L high flow nasal cannula, patient is not in any distress. Seen this morning, patient is doing well, relatively asymptomatic, and O2 saturation is in the mid 90s on 50% high flow nasal cannula. Patient was reevaluated today on 07/09/2018, remains in the ICU, she was extubated yesterday uneventfully. Patient is doing great, she feels generally weak, doing fairly well with incentive spirometry and area where between 500- 750 mL. She is already ambulating in the hallway, but she was noted to be quite weak with assistance while ambulating in front of the room in the ICU hallway. Denies any chest pain, no cough, no wheezing, no shortness of breath, remains on few liters nasal cannula, O2 saturation is in the low 90s. Chest x- ray this morning showed a trace of right pleural effusion, small left pleural effusion, and atelectasis. This is basically expected after CABG. All labs were reviewed, her hemoglobin was noted to be 6.8, however decision whether the patient is to be transfused would be left to the cardiac surgeon on the case. Renal functioning showed a BUN of 32 creatinine of 1.1. Creatinine is a bit worse compared to baseline before admission. Patient was reevaluated today on 07/10/2018, she is presently postoperative day #3 , CABG 5 with sequential LIU to diagonal and LAD, reverse saphenous vein graft to first and second obtuse marginal and right coronary artery mitral valve annuloplasty ligation of left atrial appendage. Last night the patient was noted to desaturate, and she required to be placed on non-rebreather mask for a period of time basically overnight. Today she is on a high flow nasal cannula, and she may have to go back on the nonrebreather mask if she doesn't continue to maintain adequate saturation. She was given Lasix last night, and she diuresed almost 2 L overnight. Chest x-ray continues to show some evidence of interstitial edema. And left lower lobe atelectasis with possibly a small tiny left pleural effusion. All chest tubes have been pulled out yesterday, and the patient is doing poorly with incentive spirometry. Hemoglobin remains low at 6.8. Electrolytes are normal BUN is 37 creatinine is 1.06. Reevaluated today on 07/11/2018, patient is postoperative day #4. Remains in the intensive care unit, presently on a high flow nasal cannula, actually she is on airvo with high flow and high FiO2 to maintain O2 saturation in the 90s. Clinically the patient is doing better than expected, her chest x-ray continues to show interstitial edema, atelectasis at the left base, small bilateral pleural effusions, however the ultrasound which I requested and reviewed does not show much fluid to consider thoracentesis on this patient. Patient is on Lasix, her renal functioning is showing slight prerenal picture, hemoglobin today is better at 8.8. Patient was given a unit of packed RBCs yesterday in p.m.. BUN today is 36 creatinine 0.83. Patient was reevaluated today on 07/12/2018, she is postoperative day #5, remains in the intensive care unit, on high flow and high FiO2 oxygen, actually she is on airvo. O2 saturation is 98%. Patient is on 50 L/m flow, and 60% FiO2. O2 saturation is in the mid and high 90s. Chest x-ray continues to show atelectasis bilaterally, and some component of interstitial edema. Remains on Lasix. In spite of her condition the patient seems to be comfortable, but could not lower the FiO2 down any further. She is being titrated to keep the saturation above 90%. Remains on incentive spirometry. Her hemoglobin today is 7.6 electrodes are normal renal profile is normal BUN is a bit elevated at 36. Objective - Vital Signs Vital signs: Vital Signs Temp 98 F 07/12/18 12:00 Pulse 70 07/12/18 12:00 Resp 20 07/12/18 12:00 BP 102/45 07/12/18 12:00 Pulse Ox 98 07/12/18 12:00 Intake & Output 07/11/18 07/12/18 07/12/18 18:59 06:59 18:59 Intake Total 50 370 150 Output Total 325 1600 450 Balance -523 -2610 -300 Weight 72.4 kg Intake: IV 50 250 Albumin Human 25% 50 ml 50 In Empty Bag 1 bag @ 100 mls/hr IVPB ONCE ONE Rx#: [id number] Albumin Human 5% 250 ml 250 In Empty Bag 1 bag @ 250 mls/hr IVPB ONCE STA Rx#: [id number] Oral 120 150 Output: Urine 325 1600 450 Stool 0 Other: Voiding Method Indwelling Catheter Indwelling Catheter Indwelling Catheter # Bowel Movements 4 ABP, PAP, CO, CI - Last Documented Arterial Blood Pressure 122/44 Pulmonary Artery Pressure 44/24 Cardiac Output 4.1 Cardiac Index 2.4 - Exam Physical Exam: Revealed a 73-year-old female in no distress, on airvo 50 L/m, 60 % FiO2. Head: Atraumatic, normocephalic. HEENT:[Neck is supple.] [No neck masses.] [No thyromegaly.] [No JVD.] PERRLA, EOMI, no icterus. Chest: [Diminished breath sounds and dullness the bases. Crackles at the bases no rhonchi and no wheezes Cardiac Exam: [Normal S1 and S2, no S3 gallop, no murmur.] Abdomen: [Soft, nontender, no megaly, no rebound, no guarding, normal bowel sounds.] Extremities: [No clubbing, no edema, no cyanosis.] Neurological Exam: [No focal neurologic deficit.] Skin: No rashes. Psychiatric: Normal mood affect and mental status examination. - Labs CBC & Chem 7: 07/12/18 05:01 07/12/18 05:01 Labs: Abnormal Lab Results - Last 24 Hours (Table) 07/11/18 07/11/18 07/12/18 Range/Units 17:09 20:48 05:01 WBC 11.8 H (3.8-10.6) k/uL RBC 2.39 L (3.80-5.40) m/uL Hgb 7.6 L (11.4-16.0) gm/dL Hct 24.8 L (34.0-46.0) % MCV 103.8 H (80.0-100.0) fL MCHC 30.8 L (31.0-37.0) g/dL RDW 17.1 H (11.5-15.5) % Sodium (137-145) mmol/L BUN (7-17) mg/dL Glucose (74-99) mg/dL POC Glucose (mg/dL) 133 H 128 H (75-99) mg/dL Calcium (8.4-10.2) mg/dL Total Protein (6.3-8.2) g/dL Albumin (3.5-5.0) g/dL 07/12/18 07/12/18 07/12/18 Range/Units 05:01 07:29 11:50 WBC (3.8-10.6) k/uL RBC (3.80-5.40) m/uL Hgb (11.4-16.0) gm/dL Hct (34.0-46.0) % MCV (80.0-100.0) fL MCHC (31.0-37.0) g/dL RDW (11.5-15.5) % Sodium 135 L (137-145) mmol/L BUN 36 H (7-17) mg/dL Glucose 103 H (74-99) mg/dL POC Glucose (mg/dL) 104 H 100 H (75-99) mg/dL Calcium 7.9 L (8.4-10.2) mg/dL Total Protein 5.3 L (6.3-8.2) g/dL Albumin 2.9 L (3.5-5.0) g/dL Microbiology - Last 24 Hours (Table) 07/11/18 19:30 Gram Stain - Preliminary Sputum Assessment and Plan Assessment: Impression: 1 status post CABG, mitral valve annuloplasty, postoperative day #5 2 bilateral pleural effusions and atelectasis, expected post surgery/CABG. slightly improved based on the chest x-ray from today. 3 gold stage II COPD, FEV1 63%. Remains on bronchodilators. 4 history of hypothyroidism 5 multiple comorbidities including prediabetes, carotid artery disease, scoliosis, vitamin D deficiency, and acute blood loss anemia, expected post surgery. 6 chronic systolic congestive heart failure 7 carotid artery disease 8 chronic hypoxic respiratory failure, on home O2 especially at night. 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 11 acute on chronic hypoxic respiratory failure requiring high FiO2, and high O2 flow. Recommendation: Continue to monitor in the ICU, adjust FiO2 accordingly to maintain O2 saturation above 90%. Continue aspirin, statin Plavix jarett inhibitors beta blockers bronchodilators, updrafts, incentive spirometry, pain control, GI and DVT prophylaxis, ambulation, the ultrasound did not show much fluid to be drained, hence we'll continue diuretics, and continue incentive spirometry, bronchodilators, continue to monitor in the ICU, ambulate, not quite ready for transfer out of the ICU at this point considering that she is requiring high FiO2 and high O2 flow. Time with Patient: Less than 30
--- NOTE | 2018-07-12 15:46 | P.PN ---
Subjective Progress Note Date: 07/12/18 (Delayed charting patient seen at 0800) Principal diagnosis: dyspnea Patient is a 73-year-old female with a past medical history of COPD, multivessel coronary artery disease and severe mitral regurg, breast cancer, hypothyroidism, prediabetes and vitamin D deficiency who presented for elective cardiac bypass surgery. On 07/07 she underwent [address] Marks. She underwent LIU to the LAD, SVG to the first and second obtuse marginal as well as the RCA. She had mitral valve annuloplasty and ligation of the left atrial appendage. Intraoperatively she received 2 units of packed red blood cells, 1 unit of FFP, and 1 unit of platelets. She subsequently was admitted to the ICU. Extubated on 07/07. Has been progressing well. Overnight on 07/09 she became hypoxic and required a nonrebreather. She was transitioned on Aravo though high flow on 07/10. Then overnight on 07/10 she developed A. fib with RVR needing an Amiodarone drip. She also developed urinary retention requiring reinsertion of the Mcdaniel catheter. Patient seen and examined at bedside. Still some shortness of breath unchanged from yesterday, pain controlled. Having increased pain in her right foot on her bad toe. No bowel movement yesterday. Tolerating her diet. Was able to get up and walk yesterday. Objective - Vital Signs Vital signs: Vital Signs Temp 98 F 07/12/18 12:00 Pulse 76 07/12/18 12:12 Resp 20 07/12/18 12:00 BP 102/45 07/12/18 12:00 Pulse Ox 97 07/12/18 12:14 Intake & Output 07/11/18 07/12/18 07/12/18 18:59 06:59 18:59 Intake Total 50 370 150 Output Total 325 1600 450 Balance -532 -3450 -300 Weight 72.4 kg Intake: IV 50 250 Albumin Human 25% 50 ml 50 In Empty Bag 1 bag @ 100 mls/hr IVPB ONCE ONE Rx#: [id number] Albumin Human 5% 250 ml 250 In Empty Bag 1 bag @ 250 mls/hr IVPB ONCE STA Rx#: [id number] Oral 120 150 Output: Urine 325 1600 450 Stool 0 Other: Voiding Method Indwelling Catheter Indwelling Catheter Indwelling Catheter # Bowel Movements 4 ABP, PAP, CO, CI - Last Documented Arterial Blood Pressure 122/44 Pulmonary Artery Pressure 44/24 Cardiac Output 4.1 Cardiac Index 2.4 - Exam General: ill appearing, no distress, appears at stated age Derm: Right fourth toe with ischemic discoloration and chronic necrotic ulcer- no purulent drainage noted, no warmth, no swelling of the toe. warm, dry Head: atraumatic, normocephalic, symmetric Eyes: EOMI, no lid lag, anicteric sclera Mouth: no lip lesion, mucus membranes dry Cardiovascular: S1S2 with murmur, positive posterior tibial pulse bilateral, Lungs: Decreased breath sounds bilaterally, no rhonchi, no rales , no accessory muscle use Abdominal: soft, nontender to palpation, no guarding, no appreciable organomegaly Ext: no gross muscle atrophy, 1+ edema right foot, no contractures Neuro: CN II-XI grossly intact, no focal neuro deficits Psych: Alert, oriented, appropriate affect - Labs CBC & Chem 7: 07/12/18 05:01 07/12/18 05:01 Labs: Abnormal Lab Results - Last 24 Hours (Table) 07/11/18 07/11/18 07/12/18 Range/Units 17:09 20:48 05:01 WBC 11.8 H (3.8-10.6) k/uL RBC 2.39 L (3.80-5.40) m/uL Hgb 7.6 L (11.4-16.0) gm/dL Hct 24.8 L (34.0-46.0) % MCV 103.8 H (80.0-100.0) fL MCHC 30.8 L (31.0-37.0) g/dL RDW 17.1 H (11.5-15.5) % Sodium (137-145) mmol/L BUN (7-17) mg/dL Glucose (74-99) mg/dL POC Glucose (mg/dL) 133 H 128 H (75-99) mg/dL Calcium (8.4-10.2) mg/dL Total Protein (6.3-8.2) g/dL Albumin (3.5-5.0) g/dL 07/12/18 07/12/18 07/12/18 Range/Units 05:01 07:29 11:50 WBC (3.8-10.6) k/uL RBC (3.80-5.40) m/uL Hgb (11.4-16.0) gm/dL Hct (34.0-46.0) % MCV (80.0-100.0) fL MCHC (31.0-37.0) g/dL RDW (11.5-15.5) % Sodium 135 L (137-145) mmol/L BUN 36 H (7-17) mg/dL Glucose 103 H (74-99) mg/dL POC Glucose (mg/dL) 104 H 100 H (75-99) mg/dL Calcium 7.9 L (8.4-10.2) mg/dL Total Protein 5.3 L (6.3-8.2) g/dL Albumin 2.9 L (3.5-5.0) g/dL Microbiology - Last 24 Hours (Table) 07/11/18 19:30 Gram Stain - Preliminary Sputum Assessment and Plan Assessment: Patient is a 73 yo CF here with 5 vessel CABG and MV annuloplasty Elevated WBC, improving - check UA, chest x-ray with right basilar airspace disease- patient has remained afebrile. She does not appear toxic. Continue with aggressive pulmonary hygiene. - may be due to stress of urinary retention - follow fever profile right basilar airspace disease, likely atalectasis - patient has remained afebrile. She does not appear toxic. Continue with aggressive pulmonary hygiene. - up and walking - follow temperatures - on lasix IVP and dopamine to optimize fluid status with low urine outout Urinary retention - s/p mcdaniel cath Prediabetes - A1C 5.9 06/24, down from 6.3 - SSI, follow BS closely Right 4 toe chronic ulcer due to peripheral arterial disease - no signs of infection - continue monitoring - outpatient follow-up A fib -Amiodarone Acute blood loss anemia and thrombocytopenia , anticipated outcome of surgery - s/p 1 additional unit on 07/10. - stable - Oral supplementation CAD and mitral regurg s/p CABG and mitral valve annuloplasty - management per primary team COPD without exacerbation - Pulm recs - Bronchodilators - pulmonary hygiene Hypothyroidism - Not currently on medications at home. - TSH 1.47 in Jun 2018 Elevated liver enzymes, mild, resolved Chronic Vit D Deficiency Scoliosis Carotid arterial disease DVT prophylaxis: Heparin Discharged plannin-4 days
[2018-07-12] MEDS: DEXTROSE/WATER 1 500ML.BAG with DOPamine DRIP 800 MG IV SCH (16:50)
[2018-07-12 16:53] LABS: Glucose,Whole Blood 130 mg/dL (75-99)
[2018-07-12 20:32] LABS: Glucose,Whole Blood 151 mg/dL (75-99)
[2018-07-12] MEDS: SENNOSIDES-DOCUSATE SODIUM 1 EACH TAB PO SCH (20:55)
[2018-07-13] MEDS: HEPARIN SODIUM,PORCINE 5,000 UNIT/ML 1 ML VIAL SQ SCH ×3 (01:01→16:54)
[2018-07-13] MEDS: FUROSEMIDE 10 MG/ML 2 ML VIAL IV SCH ×3 (01:02→21:34)
[2018-07-13 06:06] LABS: Anisocytosis Slight; HCT 25.6 % (34.0-46.0); HGB 7.9 gm/dL (11.4-16.0); MCH 31.4 pg (25.0-35.0); MCHC 30.9 g/dL (31.0-37.0); MCV 101.7 fL (80.0-100.0); Macrocytosis Moderate; Mean Platelet Volume 7.8; Platelet Count 195 k/uL (150-450); RBC 2.52 m/uL (3.80-5.40); RDW 17.1 % (11.5-15.5); WBC 13.8 k/uL (3.8-10.6)
[2018-07-13 06:59] LABS: Potassium 4.3 mmol/L (3.5-5.1)
[2018-07-13 07:14] LABS: Glucose,Whole Blood 116 mg/dL (75-99)
[2018-07-13] MEDS: IPRATROPIUM-ALBUTEROL 3 ML NEB INHALATION SCH ×4 (07:14→21:00)
[2018-07-13] MEDS: SYMBICORT 160-4.5 MCG INHALER INHALATION SCH ×2 (07:14→21:00)
--- NOTE | 2018-07-13 08:37 | XR ---
EXAMINATION TYPE: XR chest 1V portable DATE OF EXAM: 07/13/2018 HISTORY: Post op CABG/MVR. REFERENCE: Previous study dated 07/12/2018. FINDINGS: There continues be bibasilar atelectasis. That on the right has improved. The heart is enla rged. There are small, bilateral effusions. There has been a previous midline sternotomy. IMPRESSION: IMPROVED AERATION, RIGHT LUNG BASE.
[2018-07-13] MEDS: INSULIN ASPART 100 UNIT/ML 1 ML 10 ML VIAL SQ SCH ×4 (09:19→21:17)
[2018-07-13] MEDS: MULTIVITAMINS, THERA 1 EACH TAB PO SCH ×2 (09:25→09:26)
[2018-07-13] MEDS: PANTOPRAZOLE 40 MG TABLET PO SCH (09:25)
[2018-07-13] MEDS: ASPIRIN 325 MG TAB PO SCH (09:25)
[2018-07-13] MEDS: METOPROLOL TARTRATE 12.5 MG TAB PO SCH ×2 (09:26→21:35)
[2018-07-13] MEDS: ACETAMINOPHEN TAB 325 MG TAB PO PRN (09:26)
[2018-07-13] MEDS: AMIODARONE 200 MG TAB PO SCH ×2 (09:27→21:34)
[2018-07-13] MEDS: CHOLECALCIFEROL 1,000 UNIT TAB PO SCH (09:27)
[2018-07-13] MEDS: CLOPIDOGREL 75 MG TAB PO SCH (09:27)
[2018-07-13] MEDS: ASCORBIC ACID 500 MG TAB PO SCH (09:27)
[2018-07-13] MEDS: guaiFENesin 600 MG TABLET.ER PO SCH ×2 (09:29→21:34)
[2018-07-13] MEDS: ATORVASTATIN 40 MG TAB PO SCH (09:30)
[2018-07-13] MEDS: FERROUS SULFATE 325 MG TAB PO SCH ×2 (09:31→16:54)
[2018-07-13] MEDS: GABAPENTIN 300 MG CAP PO SCH ×3 (09:31→21:34)
[2018-07-13 11:54] LABS: Glucose,Whole Blood 95 mg/dL (75-99)
--- NOTE | 2018-07-13 12:02 | P.PN ---
Subjective Progress Note Date: 07/13/18 Principal diagnosis: Coronary artery disease with left main disease and mitral valve regurgitation, history of myocardial infarction, hyperlipidemia, chronic systolic heart failure with most recent ejection fraction of 45%, history of right breast cancer with mastectomy, status post chemo and radiation in 1997, hypothyroidism , previous tobacco dependence with [id number] history, COPD with preoperative FEV1 63% of predicted, home oxygen use on a when necessary basis at bedtime, peripheral artery disease with dry gangrene of the fourth toe on the right foot and bilateral ABIs of 0.51 to her left lower extremity and 0.52 to her right lower extremity, right carotid stenosis 50-79%, medical noncompliance, significant family history of coronary artery disease. POD #6 coronary artery bypass grafting 5 with sequential LIU to the diagonal coronary artery and left anterior descending coronary artery, a reverse greater saphenous vein grafts to first and second obtuse marginal and right coronary arteries. Mitral valve annuloplasty with a 24 mm physio-2 annuloplasty ring. Ligation of the left atrial appendage. Endovascular vein harvest of the greater saphenous vein from the right lower extremity from the ankle to the groin. Intraoperative transesophageal echocardiogram by anesthesia. Postoperative acute blood loss anemia, an expected outcome given hemodilution and cardiopulmonary bypass pump. Postoperative paroxysmal atrial fibrillation, an unexpected but potential outcome of surgery. The patient is currently sitting up to the bedside chair. She is in no acute distress. She denies any complaints of pain or shortness of breath at this time. No further episodes of atrial fibrillation, currently the bedside monitor is demonstrating normal sinus rhythm heart rate 89. Oxygen saturations are 96% on 3 L nasal cannula. Her labs this morning demonstrated a WBC count 13.8, hemoglobin 7.9, platelets 195, BUN 33, creatinine 0.98. She remains afebrile. She continues to ambulate with 2 person assist into the intensive care unit hallway. Atrial and ventricular epicardial pacemaker wires in place and grounded. Objective - Vital Signs Vital signs: Vital Signs Temp 98.2 F 07/13/18 00:00 Pulse 86 07/13/18 07:28 Resp 18 07/13/18 04:00 BP 125/55 07/13/18 04:00 Pulse Ox 97 07/13/18 04:00 Intake & Output 07/12/18 07/13/18 07/13/18 18:59 06:59 18:59 Intake Total 450 360 Output Total 675 1999 Balance -225 -1640 Intake: Oral 450 360 Output: Urine 675 1999 Other: Voiding Method Indwelling Catheter Indwelling Catheter ABP, PAP, CO, CI - Last Documented Arterial Blood Pressure 122/44 Pulmonary Artery Pressure 44/24 Cardiac Output 4.1 Cardiac Index 2.4 - Constitutional General appearance: Present: cooperative, no acute distress - Respiratory Details: Lungs sounds are essentially diminished throughout, no wheezing or rhonchi present. Respirations are symmetrical and nonlabored. Oxygen saturation are 96 % on 3 L nasal cannula. She is achieving 1000 mL on her incentive spirometry with encouragement. - Cardiovascular Details: Regular rhythm and rate. S1 and S2 present, negative for S3, gallop or murmur. Sternum is stable. Bedside telemetry showing normal sinus rhythm heart rate 89. Atrial and ventricular epicardial pacemaker wires in place and grounded. Knee-high ANGEL hose and sequential compression devices in place to her bilateral lower extremities. Trace edema to her bilateral lower extremities. Heart hugger is in place and she is demonstrating appropriate use. Dopamine drip remains at 2 mcg/kg/m. - Gastrointestinal Gastrointestinal Comment(s): Abdomen is soft, nontender and nondistended. Active bowel sounds all 4 abdominal quadrants. Tolerating oral intake. Passing flatus. Last bowel movement on 07/11/2018. - Genitourinary Genitourinary Comment(s): Marshall catheter for accurate I&O and urinary retention. Draining clear yellow urine. 1550 mL output in the last 8 hours. - Integumentary Integumentary Comment(s): Skin is warm and dry. No clubbing and cyanosis present. Midline sternal incision is clean, dry and approximated. No drainage or redness is present. Gauze dressing is clean, dry and in place. Right lower extremity EVH site clean , dry and approximated. No drainage or redness present. Right foot fourth toe with dry gangrene present. No drainage or redness present. - Neurologic Neurologic: Present: CNII-XII intact - Musculoskeletal Musculoskeletal: Present: gait normal, generalized weakness, strength equal bilaterally - Psychiatric Psychiatric: Present: A&O x's 3, appropriate affect, intact judgment & insight - Allied health notes Allied health notes reviewed: nursing - Labs CBC & Chem 7: 07/13/18 05:41 07/13/18 05:41 Labs: Abnormal Lab Results - Last 24 Hours (Table) 07/12/18 07/12/18 07/12/18 Range/Units 11:50 16:50 20:19 WBC (3.8-10.6) k/uL RBC (3.80-5.40) m/uL Hgb (11.4-16.0) gm/dL Hct (34.0-46.0) % MCV (80.0-100.0) fL MCHC (31.0-37.0) g/dL RDW (11.5-15.5) % Chloride (98-107) mmol/L Carbon Dioxide (22-30) mmol/L BUN (7-17) mg/dL Glucose (74-99) mg/dL POC Glucose (mg/dL) 100 H 130 H 151 H (75-99) mg/dL Calcium (8.4-10.2) mg/dL 07/13/18 07/13/18 07/13/18 Range/Units 05:41 05:41 07:01 WBC 13.8 H (3.8-10.6) k/uL RBC 2.52 L (3.80-5.40) m/uL Hgb 7.9 L (11.4-16.0) gm/dL Hct 25.6 L (34.0-46.0) % MCV 101.7 H (80.0-100.0) fL MCHC 30.9 L (31.0-37.0) g/dL RDW 17.1 H (11.5-15.5) % Chloride 97 L (98-107) mmol/L Carbon Dioxide 36 H (22-30) mmol/L BUN 33 H (7-17) mg/dL Glucose 109 H (74-99) mg/dL POC Glucose (mg/dL) 116 H (75-99) mg/dL Calcium 8.0 L (8.4-10.2) mg/dL Microbiology - Last 24 Hours (Table) 07/11/18 19:30 Gram Stain - Preliminary Sputum - Imaging and Cardiology Chest x-ray: report reviewed, image reviewed Assessment and Plan (1) CAD (coronary artery disease), elem coronary artery Current Visit: Yes Status: Chronic Code(s): I25.10 - ATHSCL HEART DISEASE OF [place] CORONARY ARTERY W/O ANG PCTRS SNOMED Code(s): 2515156072714 (2) COPD (chronic obstructive pulmonary disease) Current Visit: Yes Status: Chronic Code(s): J44.9 - CHRONIC OBSTRUCTIVE PULMONARY DISEASE, UNSPECIFIED SNOMED Code(s): 72904921 (3) Carotid arterial disease Current Visit: Yes Status: Chronic Code(s): I77.9 - DISORDER OF ARTERIES AND ARTERIOLES, UNSPECIFIED SNOMED Code(s): 257392267 (4) Chronic systolic heart failure Current Visit: Yes Status: Chronic Code(s): I50.22 - CHRONIC SYSTOLIC ( CONGESTIVE) HEART FAILURE SNOMED Code(s): 812889272 (5) Family history of heart disease Current Visit: Yes Status: Chronic Code(s): Z82.49 - FAMILY HX OF ISCHEM HEART DIS AND OTH DIS OF THE CIRC SYS SNOMED Code(s): 757250050 (6) Hyperlipidemia Current Visit: Yes Status: Chronic Code(s): E78.5 - HYPERLIPIDEMIA, UNSPECIFIED SNOMED Code(s): 37347432 (7) Left main coronary artery disease Current Visit: Yes Status: Chronic Code(s): I25.10 - ATHSCL HEART DISEASE OF [place] CORONARY ARTERY W/O ANG PCTRS SNOMED Code(s): 342265338 (8) Medical non-compliance Current Visit: Yes Status: Chronic Code(s): Z91.19 - PATIENT'S NONCOMPLIANCE W OTH MEDICAL TREATMENT AND REGIMEN SNOMED Code(s): 443745278 (9) On home O2 Current Visit: Yes Status: Chronic Code(s): Z99.81 - DEPENDENCE ON SUPPLEMENTAL OXYGEN SNOMED Code(s): 820297866448 (10) Peripheral artery disease Current Visit: Yes Status: Chronic Code(s): I73.9 - PERIPHERAL VASCULAR DISEASE, UNSPECIFIED SNOMED Code(s): 796380855 (11) Severe mitral regurgitation Current Visit: Yes Status: Chronic Code(s): I34.0 - NONRHEUMATIC MITRAL ( VALVE) INSUFFICIENCY SNOMED Code(s): 44393731 (12) History of breast cancer Current Visit: No Status: Resolved Code(s): Z85.3 - PERSONAL HISTORY OF MALIGNANT NEOPLASM OF BREAST SNOMED Code(s): 677177731 (13) History of chemotherapy Current Visit: No Status: Resolved Code(s): Z92.21 - PERSONAL HISTORY OF ANTINEOPLASTIC CHEMOTHERAPY SNOMED Code(s): 812605712458834 (14) History of right mastectomy Current Visit: No Status: Resolved Code(s): Z90.11 - ACQUIRED ABSENCE OF RIGHT BREAST AND NIPPLE SNOMED Code(s): 367433225 (15) Hypothyroid Current Visit: No Status: Resolved Code(s): E03.9 - HYPOTHYROIDISM, UNSPECIFIED SNOMED Code(s): 22918312 (16) Previous myocardial infarction older than 8 weeks Current Visit: No Status: Resolved Code(s): I25.2 - OLD MYOCARDIAL INFARCTION SNOMED Code(s): 2498913 (17) Tobacco dependence in remission Current Visit: No Status: Resolved Code(s): F17.201 - NICOTINE DEPENDENCE, UNSPECIFIED, IN REMISSION SNOMED Code(s): 076903885 Plan: 1. Continue aspirin, statin, Plavix, beta gregg and lisinopril. Will increase her beta gregg therapy as tolerated. 2. Wean O2 as tolerated. Encourage incentive spirometry 10 times every hour while awake. 3. Bronchodilators, inhaled steroids per pulmonology management. 4. Decrease IV lasix 20 mg every 12 hours. We will add Diamox 250 mg by mouth now and then Diamox 250 mg by mouth in the a.m. then discontinue. 5. Increase activity, ambulate as tolerated. PT/OT/cardiac rehab following. 6. Continue Marshall catheter for urinary retention. 7. Will monitor daily labs and x-rays. Electrolyte replacement per protocol. 8. Pain control with current medication regimen. 9. Insulin management per primary care service. 10. GI prophylaxis with Protonix, DVT prophylaxis with subcu heparin, SCDs. 11. Encourage continued smoking cessation. 12. Discontinue dopamine drip. 13. Continue Amiodarone 400 mg by mouth twice a day for atrial fibrillation prophylaxis. 14. More recommendations to follow based on patient's clinical course. Time with Patient: Greater than 30
[2018-07-13] MEDS: LISINOPRIL 2.5 MG TAB PO SCH (13:08)
[2018-07-13] MEDS: acetaZOLAMIDE 250 MG TAB PO SCH (13:13)
[2018-07-13] MEDS: MAGNESIUM HYDROXIDE 2,400 MG/10 ML CUP PO PRN (13:13)
--- NOTE | 2018-07-13 13:17 | P.PN ---
Subjective Progress Note Date: 07/13/18 (delayed charting seen at 0830) Principal diagnosis: dyspnea Patient is a 73-year-old female with a past medical history of COPD, multivessel coronary artery disease and severe mitral regurg, breast cancer, hypothyroidism, prediabetes and vitamin D deficiency who presented for elective cardiac bypass surgery. On 07/07 she underwent [address] Marks. She underwent LIU to the LAD, SVG to the first and second obtuse marginal as well as the RCA. She had mitral valve annuloplasty and ligation of the left atrial appendage. Intraoperatively she received 2 units of packed red blood cells, 1 unit of FFP, and 1 unit of platelets. She subsequently was admitted to the ICU. Extubated on 07/07. Has been progressing well. Overnight on 07/09 she became hypoxic and required a nonrebreather. She was transitioned on Arvo high flow on 07/10. Then overnight on 07/10 she developed A. fib with RVR needing an Amiodarone drip which was transitioned to oral. She also developed urinary retention requiring reinsertion of the Mcdaniel catheter. Has been slowly progressing Patient seen and examined at bedside. Feeling very tired today, breathing unchanged, no nausea, no vomiting, pain is controlled, no BM yesterday. Objective - Vital Signs Vital signs: Vital Signs Temp 98.2 F 07/13/18 00:00 Pulse 78 07/13/18 11:16 Resp 18 07/13/18 04:00 BP 125/55 07/13/18 04:00 Pulse Ox 97 07/13/18 04:00 Intake & Output 07/12/18 07/13/18 07/13/18 18:59 06:59 18:59 Intake Total 450 360 Output Total 675 1999 Balance -225 -1640 Intake: Oral 450 360 Output: Urine 675 1999 Other: Voiding Method Indwelling Catheter Indwelling Catheter ABP, PAP, CO, CI - Last Documented Arterial Blood Pressure 122/44 Pulmonary Artery Pressure 44/24 Cardiac Output 4.1 Cardiac Index 2.4 - Exam General: Non tosic, no distress, appears at stated age Derm: Right fourth toe with ischemic discoloration and chronic necrotic ulcer- no purulent drainage noted, no warmth, no swelling of the toe. warm, dry Head: atraumatic, normocephalic, symmetric Eyes: EOMI, no lid lag, anicteric sclera Mouth: no lip lesion, mucus membranes dry Cardiovascular: S1S2 with murmur, positive posterior tibial pulse bilateral, Lungs: Decreased breath sounds bilaterally, no rhonchi, no rales , no accessory muscle use Abdominal: soft, nontender to palpation, no guarding, no appreciable organomegaly Ext: no gross muscle atrophy, Trace edema right foot, no contractures Neuro: CN II-XI grossly intact, no focal neuro deficits Psych: Alert, oriented, appropriate affect - Labs CBC & Chem 7: 07/13/18 05:41 07/13/18 05:41 Labs: Abnormal Lab Results - Last 24 Hours (Table) 07/12/18 07/12/18 07/13/18 Range/Units 16:50 20:19 05:41 WBC 13.8 H (3.8-10.6) k/uL RBC 2.52 L (3.80-5.40) m/uL Hgb 7.9 L (11.4-16.0) gm/dL Hct 25.6 L (34.0-46.0) % MCV 101.7 H (80.0-100.0) fL MCHC 30.9 L (31.0-37.0) g/dL RDW 17.1 H (11.5-15.5) % Chloride (98-107) mmol/L Carbon Dioxide (22-30) mmol/L BUN (7-17) mg/dL Glucose (74-99) mg/dL POC Glucose (mg/dL) 130 H 151 H (75-99) mg/dL Calcium (8.4-10.2) mg/dL 07/13/18 07/13/18 Range/Units 05:41 07:01 WBC (3.8-10.6) k/uL RBC (3.80-5.40) m/uL Hgb (11.4-16.0) gm/dL Hct (34.0-46.0) % MCV (80.0-100.0) fL MCHC (31.0-37.0) g/dL RDW (11.5-15.5) % Chloride 97 L (98-107) mmol/L Carbon Dioxide 36 H (22-30) mmol/L BUN 33 H (7-17) mg/dL Glucose 109 H (74-99) mg/dL POC Glucose (mg/dL) 116 H (75-99) mg/dL Calcium 8.0 L (8.4-10.2) mg/dL Microbiology - Last 24 Hours (Table) 07/11/18 19:30 Gram Stain - Preliminary Sputum Assessment and Plan Assessment: Patient is a 73 yo CF here with 5 vessel CABG and MV annuloplasty Leukocytosis, improving - follow fever profile Constipation - continue bowel regiment - add mag citrate vs suppository in AM if no BM Urinary retention - s/p mcdaniel cath Prediabetes - A1C 5.9 06/24, down from 6.3 - SSI, follow BS closely Right 4 toe chronic ulcer due to peripheral arterial disease - no signs of infection - continue monitoring - outpatient follow-up A fib -Amiodarone Acute blood loss anemia and thrombocytopenia , anticipated outcome of surgery - s/p 1 additional unit on 07/10. - stable - Oral supplementation X 30 days CAD and mitral regurg s/p CABG and mitral valve annuloplasty - management per primary team COPD without exacerbation - Pulm recs - Bronchodilators - pulmonary hygiene Hypothyroidism - Not currently on medications at home. - TSH 1.47 in Jun 2018 Elevated liver enzymes, mild, resolved right basilar airspace disease, likely atalectasis, resolved Chronic Vit D Deficiency Scoliosis Carotid arterial disease DVT prophylaxis: Heparin Discharged plannin-4 days
--- NOTE | 2018-07-13 14:27 | P.PN ---
Subjective Progress Note Date: 07/13/18 Principal diagnosis: Status post CABG, and mitral valve repair. Postoperative day #6 This is a 73-year-old female with known history of COPD, Gold stage II, FEV1 is 63%. usually sees Dr. Perez, she is mostly on oxygen at night. Patient was recently found to have multivessel coronary artery disease and severe mitral regurgitation. She was cleared by Dr. Perez for surgery based on her PFTs done in the office, and on 07/07/2018, patient underwent multivessel myocardial revascularization, she underwent five-vessel bypass surgery, with LIU to LAD, SVG to the first and second obtuse marginal as well as the RCA. She also had mitral valve annuloplasty and ligation of left atrial appendage. Postoperatively, patient was on mechanical ventilation, and I was asked to see her on consultation. Her postoperative course was relatively uneventful. She hours after her surgery, I was called about her ventilator settings, her weaning ABG, and initially she was borderline for extubation. Hence we delayed the extubation about 2 hours. As her mental status improved and the patient became more awake, follow-up ABG was done, follow-up trial on pressure support and CPAP was given, patient was extubated uneventfully. Later at night the patient developed some desaturation, chest x-ray showed evidence of interstitial edema, responded to 20 mg of Lasix given and her O2 saturation improved presently on 15 L high flow nasal cannula, patient is not in any distress. Seen this morning, patient is doing well, relatively asymptomatic, and O2 saturation is in the mid 90s on 50% high flow nasal cannula. Patient was reevaluated today on 07/09/2018, remains in the ICU, she was extubated yesterday uneventfully. Patient is doing great, she feels generally weak, doing fairly well with incentive spirometry and area where between 500- 750 mL. She is already ambulating in the hallway, but she was noted to be quite weak with assistance while ambulating in front of the room in the ICU hallway. Denies any chest pain, no cough, no wheezing, no shortness of breath, remains on few liters nasal cannula, O2 saturation is in the low 90s. Chest x- ray this morning showed a trace of right pleural effusion, small left pleural effusion, and atelectasis. This is basically expected after CABG. All labs were reviewed, her hemoglobin was noted to be 6.8, however decision whether the patient is to be transfused would be left to the cardiac surgeon on the case. Renal functioning showed a BUN of 32 creatinine of 1.1. Creatinine is a bit worse compared to baseline before admission. Patient was reevaluated today on 07/10/2018, she is presently postoperative day #3 , CABG 5 with sequential LIU to diagonal and LAD, reverse saphenous vein graft to first and second obtuse marginal and right coronary artery mitral valve annuloplasty ligation of left atrial appendage. Last night the patient was noted to desaturate, and she required to be placed on non-rebreather mask for a period of time basically overnight. Today she is on a high flow nasal cannula, and she may have to go back on the nonrebreather mask if she doesn't continue to maintain adequate saturation. She was given Lasix last night, and she diuresed almost 2 L overnight. Chest x-ray continues to show some evidence of interstitial edema. And left lower lobe atelectasis with possibly a small tiny left pleural effusion. All chest tubes have been pulled out yesterday, and the patient is doing poorly with incentive spirometry. Hemoglobin remains low at 6.8. Electrolytes are normal BUN is 37 creatinine is 1.06. Reevaluated today on 07/11/2018, patient is postoperative day #4. Remains in the intensive care unit, presently on a high flow nasal cannula, actually she is on airvo with high flow and high FiO2 to maintain O2 saturation in the 90s. Clinically the patient is doing better than expected, her chest x-ray continues to show interstitial edema, atelectasis at the left base, small bilateral pleural effusions, however the ultrasound which I requested and reviewed does not show much fluid to consider thoracentesis on this patient. Patient is on Lasix, her renal functioning is showing slight prerenal picture, hemoglobin today is better at 8.8. Patient was given a unit of packed RBCs yesterday in p.m.. BUN today is 36 creatinine 0.83. Patient was reevaluated today on 07/12/2018, she is postoperative day #5, remains in the intensive care unit, on high flow and high FiO2 oxygen, actually she is on airvo. O2 saturation is 98%. Patient is on 50 L/m flow, and 60% FiO2. O2 saturation is in the mid and high 90s. Chest x-ray continues to show atelectasis bilaterally, and some component of interstitial edema. Remains on Lasix. In spite of her condition the patient seems to be comfortable, but could not lower the FiO2 down any further. She is being titrated to keep the saturation above 90%. Remains on incentive spirometry. Her hemoglobin today is 7.6 electrodes are normal renal profile is normal BUN is a bit elevated at 36. Reevaluated today on 07/13/2018, remains in the ICU, patient is postoperative day #6. Yesterday she was placed on renal perfusion dose of dopamine, patient had a significant improvement in her urine output, and we were able to cut down her FiO2 from high flow and high FiO2, she is presently now on few liters nasal cannula. She is actually on 3 L nasal cannula, and her O2 saturation is 96%. Patient is feeling much better, no cough no wheezing no shortness of breath no chest pain. Her BUN is a bit elevated at 33 creatinine is 0.98. Patient is afebrile, and basically asymptomatic today. Objective - Vital Signs Vital signs: Vital Signs Temp 98.1 F 07/13/18 12:00 Pulse 76 07/13/18 12:00 Resp 13 07/13/18 12:00 BP 105/49 07/13/18 12:00 Pulse Ox 95 07/13/18 12:00 Intake & Output 07/12/18 07/13/18 07/13/18 18:59 06:59 18:59 Intake Total 450 360 Output Total 675 2000 Balance -225 -1640 Intake: Oral 450 360 Output: Urine 675 1999 Other: Voiding Method Indwelling Catheter Indwelling Catheter Indwelling Catheter ABP, PAP, CO, CI - Last Documented Arterial Blood Pressure 122/44 Pulmonary Artery Pressure 44/24 Cardiac Output 4.1 Cardiac Index 2.4 - Exam Physical Exam: Revealed a 73-year-old female in no distress, on 3 L nasal cannula. Head: Atraumatic, normocephalic. HEENT:[Neck is supple.] [No neck masses.] [No thyromegaly.] [No JVD.] PERRLA, EOMI, no icterus. Chest: [Slightly diminished breath sounds at the left base, no crackles nor rhonchi no wheezes. Cardiac Exam: [Normal S1 and S2, no S3 gallop, no murmur.] Abdomen: [Soft, nontender, no megaly, no rebound, no guarding, normal bowel sounds.] Extremities: [No clubbing, no edema, no cyanosis.] Neurological Exam: [No focal neurologic deficit.] Skin: No rashes. Psychiatric: Normal mood affect and mental status examination. - Labs CBC & Chem 7: 07/13/18 05:41 07/13/18 05:41 Labs: Abnormal Lab Results - Last 24 Hours (Table) 07/12/18 07/12/18 07/13/18 Range/Units 16:50 20:19 05:41 WBC 13.8 H (3.8-10.6) k/uL RBC 2.52 L (3.80-5.40) m/uL Hgb 7.9 L (11.4-16.0) gm/dL Hct 25.6 L (34.0-46.0) % MCV 101.7 H (80.0-100.0) fL MCHC 30.9 L (31.0-37.0) g/dL RDW 17.1 H (11.5-15.5) % Chloride (98-107) mmol/L Carbon Dioxide (22-30) mmol/L BUN (7-17) mg/dL Glucose (74-99) mg/dL POC Glucose (mg/dL) 130 H 151 H (75-99) mg/dL Calcium (8.4-10.2) mg/dL 07/13/18 07/13/18 Range/Units 05:41 07:01 WBC (3.8-10.6) k/uL RBC (3.80-5.40) m/uL Hgb (11.4-16.0) gm/dL Hct (34.0-46.0) % MCV (80.0-100.0) fL MCHC (31.0-37.0) g/dL RDW (11.5-15.5) % Chloride 97 L (98-107) mmol/L Carbon Dioxide 36 H (22-30) mmol/L BUN 33 H (7-17) mg/dL Glucose 109 H (74-99) mg/dL POC Glucose (mg/dL) 116 H (75-99) mg/dL Calcium 8.0 L (8.4-10.2) mg/dL Assessment and Plan Assessment: Impression: 1 status post CABG, mitral valve annuloplasty, postoperative day #6 2 bilateral pleural effusions and atelectasis, expected post surgery/CABG. slightly improved based on the chest x-ray from today. 3 gold stage II COPD, FEV1 63%. Remains on bronchodilators. 4 history of hypothyroidism 5 multiple comorbidities including prediabetes, carotid artery disease, scoliosis, vitamin D deficiency, and acute blood loss anemia, expected post surgery. 6 acute on chronic chronic systolic congestive heart failure 7 carotid artery disease 8 chronic hypoxic respiratory failure, on home O2 especially at night. 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 11 acute on chronic hypoxic respiratory failure, improved with diuretics and renal perfusion dose of dopamine. Recommendation: Continue to monitor in the ICU, continue O2 at 3 L/m via nasal cannula. Continue incentive spirometry. Continue cardiac meds including aspirin statins and Plavix beta blockers and lisinopril. Wean O2 as tolerated. Continue to encourage incentive spirometry. Continue bronchodilators. Continue Lasix. Ambulate in the ICU. Continue Marshall catheter for urinary retention. Pain control. Continue GI and DVT prophylaxis. Continue amiodarone will follow. Time with Patient: Less than 30
[2018-07-13 17:35] LABS: Glucose,Whole Blood 163 mg/dL (75-99)
[2018-07-13 21:20] LABS: Glucose,Whole Blood 126 mg/dL (75-99)
[2018-07-13] MEDS: SENNOSIDES-DOCUSATE SODIUM 1 EACH TAB PO SCH (21:33)
[2018-07-14] MEDS: HEPARIN SODIUM,PORCINE 5,000 UNIT/ML 1 ML VIAL SQ SCH ×3 (00:35→18:02)
[2018-07-14 05:56] LABS: Anisocytosis Slight; Basophils % (A) 0 %; Eosinophils # (A) 0.4 k/uL (0-0.7); Eosinophils % (A) 3 %; HCT 24.8 % (34.0-46.0); HGB 7.9 gm/dL (11.4-16.0); Hypochromasia Moderate; Lymphocytes # (A) 1.6 k/uL (1.0-4.8); Lymphocytes % (A) 15 %; MCH 32.7 pg (25.0-35.0); MCHC 31.8 g/dL (31.0-37.0); MCV 103.1 fL (80.0-100.0); Macrocytosis Moderate; Mean Platelet Volume 7.3; Monocytes # (A) 0.4 k/uL (0-1.0); Monocytes % (A) 4 %; Neutrophils # (A) 7.9 k/uL (1.3-7.7); Neutrophils % (A) 75 %; Platelet Count 206 k/uL (150-450); RBC 2.41 m/uL (3.80-5.40); RDW 16.6 % (11.5-15.5); WBC 10.6 k/uL (3.8-10.6)
[2018-07-14 06:01] LABS: Albumin 2.7 g/dL (3.5-5.0); Calcium 7.7 mg/dL (8.4-10.2); Magnesium 2.4 mg/dL (1.6-2.3); Phosphorus 3.1 mg/dL (2.5-4.5); Total Bilirubin 0.8 mg/dL (0.2-1.3); Total Protein 5.2 g/dL (6.3-8.2)
[2018-07-14 07:24] LABS: Glucose,Whole Blood 139 mg/dL (75-99)
--- NOTE | 2018-07-14 08:27 | P.CONS ---
History of Present Illness - Chief Complaint Cardiac debility - History of Present Illness I had the opportunity to see patient for inpatient rehab consultation with regard to cardiac debility. She is admitted to [facility] July 07 with cardiac disease. Underwent CABG and MVR on July 09. Seen in consultation by Anton Good and cardiology. Chest x-rays followed for some congestion in right base which is improving. PT reports minimal assistance for transfers and minimal assistance to person for gait 60 feet. OT reports minimal assistance for upper dressing and maximal assistance for lower dressing and toileting moderate assistance for bathing. 2 person minimal assistance functional debility and transfer. Previous functional history as elicited patient: She is unsure how old she is but she is a 73-year-old right-handed white female who is lives in one floor home with and son. and son does the cooking, laundry, driving. Patient independent with standing shower and gait without device. History of smoking about past. Can have a few glasses of wine per day a couple or 3 times a week. Does not have regular doctor. Family medical history mother diabetes in father with cardiac disease. Review of Systems Review of systems: ENT: Denies sneezes or discharge. Eyes: Denies discharge or photophobia. Cardiac: Mild sternal discomfort. Pulmonary: Mild shortness of breath. Breast: Denies discharge or lumps. Gastrointestinal: Denies nausea, emesis, constipation, diarrhea. Genitourinary: Denies discharge or frequency. Musculoskeletal: Denies muscle or bone aches. Neurologic: Generalized weakness. Endocrine: Denies shakes or sweats. Oncology: Denies cancers. Dermatologic: Denies rash, itching, pruritus. ALLERGY/immunology: Denies sneezes, rashes. Past Medical History Past Medical History: Coronary Artery Disease (CAD), Cancer, COPD, Hypertension , Myocardial Infarction ([place]), Skin Disorder, Thyroid Disorder Additional Past Medical History / Comment(s): Hx Right Breast cancer with mastectomy, radiation & chemotherapy, scoliosis of the spine, hypothyroidism, vitamin D deficiency. O2 at night 2L per nasal cannula. Recent fatigue and SOB. Hx Psoriasis. Dry Gangrene right 4th toe., Varicose veins., CHESTER and hyperkalemia. Last Myocardial Infarction Date:: 10/2017 History of Any Multi-Drug Resistant Organisms: None Reported Past Surgical History: Breast Surgery, Heart Catheterization Additional Past Surgical History / Comment(s): Right mastectomy. CABG 5 vessel 07/07/18. Past Anesthesia/Blood Transfusion Reactions: No Reported Reaction Additional Past Anesthesia/Blood Transfusion Reaction / Comm: NO HX OF BLOOD TRANSFUSION. Past Psychological History: No Psychological Hx Reported Additional Psychological History / Comment(s): ANXIOUS REGARDING SURGERY. Smoking Status: Former smoker Past Alcohol Use History: Occasional Additional Past Alcohol Use History / Comment(s): Quit smoking 1 yr ago (2017), smoked 40 yrs, <1PPD. Past Drug Use History: None Reported - Past Family History Father Family Medical History: Coronary Artery Disease (CAD), CVA/TIA, Hypertension, Myocardial Infarction ([place]) Mother Family Medical History: Coronary Artery Disease (CAD), CVA/TIA, Diabetes Mellitus, Hypertension, Myocardial Infarction ([place]) Additional Family Medical History / Comment(s): pace maker Medications and Allergies Home Medications Medication Instructions Recorded Confirmed Type Ascorbic Acid [Vitamin C] 1,000 mg PO DAILY 10/23/17 07/07/18 History Cholecalciferol [Vitamin D3] 1,000 unit PO DAILY 10/23/17 07/07/18 History Multivitamins, Thera [Multivitamin 1 tab PO DAILY 10/23/17 07/07/18 History (formulary)] Vitamin B Complex 1 cap PO DAILY 10/23/17 07/07/18 History Atorvastatin [Lipitor] 40 mg PO DAILY #30 tab 10/29/17 07/07/18 Rx Budesonide-Formot 160-4.5 Mcg 2 puff INHALATION RT-BID #1 inhaler 10/29/1707/07 Rx [Symbicort 160-4.5 Mcg Inhaler] Nitroglycerin Sl Tabs [Nitrostat] 0.4 mg SUBLINGUAL Q5M PRN #7 tab 10/29/17 Rx Albuterol Inhaler [Ventolin Hfa 1 - 2 puff INHALATION RT-Q6H PRN 12/17/17 History Inhaler] Carvedilol [Coreg] 12.5 mg PO BID-W/MEALS 12/17/17 07/07/18 History Furosemide [Lasix] 20 mg PO DAILY 06/16/18 07/07/18 History Gabapentin [Neurontin] 300 mg PO TID 06/16/18 07/07/18 History hydrALAZINE HCL 25 mg PO BID-W/MEALS 06/16/18 07/07/18 History Aspirin 81 mg PO HS 06/18/18 07/07/18 History Acetaminophen [Tylenol Extra 500 mg PO DAILY PRN 06/23/18 07/07/18 History Strength] Benzonatate [Benzonatate Perle] 100 mg PO TID 07/02/18 07/07/18 History Levofloxacin [Levaquin] 500 mg PO DAILY 07/02/18 07/07/18 History Mupirocin 2% Oint [Bactroban 2% 1 applic NASAL BID 07/04/18 07/07/18 History Oint] Allergies Allergy/AdvReac Type Severity Reaction Status Date / Time morphine AdvReac Hallucinati Verified 07/07/18 15:23 ons Physical Exam Vitals: Vital Signs Temp Pulse Resp BP Pulse Ox 07/14/18 06:00 115/52 07/14/18 04:00 98.7 F 75 19 110/50 95 07/14/18 00:00 98.3 F 78 20 134/85 95 07/13/18 21:13 80 16 07/13/18 21:00 79 16 07/13/18 20:00 98.1 F 81 19 142/58 91 L 07/13/18 16:43 82 16 07/13/18 16:30 80 16 07/13/18 16:00 98 F 76 18 122/52 98 07/13/18 12:00 98.1 F 76 13 105/49 95 07/13/18 11:16 78 07/13/18 11:05 70 07/13/18 10:00 87 8 L 115/52 97 Intake and Output 07/13/18 07/14/18 07/14/18 22:59 06:59 14:59 Intake Total 300 225 Output Total 600 1200 Balance -300 -975 Intake: Oral 300 225 Output: Urine 600 1200 Other: Voiding Method Indwelling Catheter Indwelling Catheter Weight 73.8 kg Skin: Atrophic, intact. General: Obese build and comfortable appearance. Head: Normocephalic, atraumatic. Eyes: Symmetric. Pupils equal round. Ears: Symmetric. Hearing within normal limits. Mouth: Clear. Neck: Supple. Carotid without bruit. Cardiac: Regular rate and rhythm. Clean and dressed. Harness. Lungs: Clear anteriorly and posteriorly. Abdomen: Soft active nontender. Obese. Extremities: Normal tone. Neurological: Mental status: Alert, cooperative, pleasant. Cranial nerves: Symmetric facial tone and trapezius. Motor: Can actively elevate all limbs but at best antigravity. Sensation: Intact throughout. DTRs: Symmetric and equal throughout. Mobility: Two-person assistance for transfer to bedside Ciara chair. Results CBC & Chem 7: 07/14/18 05:29 07/14/18 05:29 Labs: Abnormal Lab Results - Last 24 Hours (Table) 07/13/18 07/13/18 07/14/18 Range/Units 17:20 21:16 05:29 RBC 2.41 L (3.80-5.40) m/uL Hgb 7.9 L (11.4-16.0) gm/dL Hct 24.8 L (34.0-46.0) % MCV 103.1 H (80.0-100.0) fL RDW 16.6 H (11.5-15.5) % Neutrophils # 7.9 H (1.3-7.7) k/uL Sodium (137-145) mmol/L Chloride (98-107) mmol/L Carbon Dioxide (22-30) mmol/L BUN (7-17) mg/dL Creatinine (0.52-1.04) mg/dL Glucose (74-99) mg/dL POC Glucose (mg/dL) 163 H 126 H (75-99) mg/dL Calcium (8.4-10.2) mg/dL Magnesium (1.6-2.3) mg/dL Total Protein (6.3-8.2) g/dL Albumin (3.5-5.0) g/dL 07/14/18 07/14/18 Range/Units 05:29 07:21 RBC (3.80-5.40) m/uL Hgb (11.4-16.0) gm/dL Hct (34.0-46.0) % MCV (80.0-100.0) fL RDW (11.5-15.5) % Neutrophils # (1.3-7.7) k/uL Sodium 136 L (137-145) mmol/L Chloride 96 L (98-107) mmol/L Carbon Dioxide 32 H (22-30) mmol/L BUN 30 H (7-17) mg/dL Creatinine 1.23 H (0.52-1.04) mg/dL Glucose 114 H (74-99) mg/dL POC Glucose (mg/dL) 139 H (75-99) mg/dL Calcium 7.7 L (8.4-10.2) mg/dL Magnesium 2.4 H (1.6-2.3) mg/dL Total Protein 5.2 L (6.3-8.2) g/dL Albumin 2.7 L (3.5-5.0) g/dL Assessment and Plan (1) CAD (coronary artery disease), ho-chunk coronary artery Current Visit: Yes Status: Chronic Code(s): I25.10 - ATHSCL HEART DISEASE OF [place] CORONARY ARTERY W/O ANG PCTRS SNOMED Code(s): 4694350382486 (2) Medical non-compliance Current Visit: Yes Status: Chronic Code(s): Z91.19 - PATIENT'S NONCOMPLIANCE W OTH MEDICAL TREATMENT AND REGIMEN SNOMED Code(s): 294355322 Plan: Impression: 1. Cardiac debility. 2. Coronary disease history of CABG and MVR. History of [place]. 3. Morbid obesity. 4. History of medical noncompliance. 5. CHF. 6. Hypertension. 7. COPD. Comments and plan: At this time PT and OT are ongoing. Safety concerns noted. We'll follow for ability tolerate therapy. Note inpatient rehab requirements or 3 hours per day.
--- NOTE | 2018-07-14 08:28 | XR ---
EXAMINATION TYPE: XR chest 1V portable DATE OF EXAM: 07/14/2018 COMPARISON: 07/13/2018 HISTORY: Post cardiac surgery. Shortness of breath. Follow-up TECHNIQUE: Single frontal view of the chest is obtained. FINDINGS: There is improving aeration of the left lung base with the small residual left pleural eff usion and left basilar atelectasis. Heart remains enlarged with postoperative changes the chest and k nown mitral valve replacement. Minimal patchy right basilar atelectasis again remains. Right axillary surgical clips are noted. No pneumothorax is seen. IMPRESSION: Improving small left pleural effusion and left basilar airspace disease and minimal patc hy residual right basilar atelectasis.
[2018-07-14] MEDS: SYMBICORT 160-4.5 MCG INHALER INHALATION SCH ×2 (08:34→20:56)
[2018-07-14] MEDS: IPRATROPIUM-ALBUTEROL 3 ML NEB INHALATION SCH ×4 (08:34→20:56)
[2018-07-14] MEDS: ASPIRIN 325 MG TAB PO SCH (08:51)
[2018-07-14] MEDS: guaiFENesin 600 MG TABLET.ER PO SCH ×2 (08:51→21:55)
[2018-07-14] MEDS: METOPROLOL TARTRATE 12.5 MG TAB PO SCH ×2 (08:51→21:55)
[2018-07-14] MEDS: GABAPENTIN 300 MG CAP PO SCH ×3 (08:58→21:58)
[2018-07-14] MEDS: ATORVASTATIN 40 MG TAB PO SCH (08:58)
[2018-07-14] MEDS: FERROUS SULFATE 325 MG TAB PO SCH ×2 (08:58→16:14)
[2018-07-14] MEDS: PANTOPRAZOLE 40 MG TABLET PO SCH (08:58)
[2018-07-14] MEDS: CLOPIDOGREL 75 MG TAB PO SCH (08:58)
[2018-07-14] MEDS: AMIODARONE 200 MG TAB PO SCH ×2 (08:58→21:56)
[2018-07-14] MEDS: INSULIN ASPART 100 UNIT/ML 1 ML 10 ML VIAL SQ SCH ×4 (08:59→21:57)
[2018-07-14] MEDS: FUROSEMIDE 10 MG/ML 2 ML VIAL IV SCH (09:02)
[2018-07-14] MEDS: acetaZOLAMIDE 250 MG TAB PO SCH (09:39)
--- NOTE | 2018-07-14 11:51 | P.PN ---
Subjective Progress Note Date: 07/14/18 Principal diagnosis: Coronary artery disease with left main disease and mitral valve regurgitation, history of myocardial infarction, hyperlipidemia, chronic systolic heart failure with most recent ejection fraction of 45%, history of right breast cancer with mastectomy, status post chemo and radiation in 1997, hypothyroidism , previous tobacco dependence with [id number] history, COPD with preoperative FEV1 63% of predicted, home oxygen use on a when necessary basis at bedtime, peripheral artery disease with dry gangrene of the fourth toe on the right foot and bilateral ABIs of 0.51 to her left lower extremity and 0.52 to her right lower extremity, right carotid stenosis 50-79%, medical noncompliance, significant family history of coronary artery disease. POD #7 coronary artery bypass grafting 5 with sequential LIU to the diagonal coronary artery and left anterior descending coronary artery, a reverse greater saphenous vein grafts to first and second obtuse marginal and right coronary arteries. Mitral valve annuloplasty with a 24 mm physio-2 annuloplasty ring. Ligation of the left atrial appendage. Endovascular vein harvest of the greater saphenous vein from the right lower extremity from the ankle to the groin. Intraoperative transesophageal echocardiogram by anesthesia. Postoperative acute blood loss anemia, an expected outcome given hemodilution and cardiopulmonary bypass pump. Postoperative paroxysmal atrial fibrillation, an unexpected but potential outcome of surgery. Postoperative urinary retention requiring placement of Marshall catheter. The patient is currently sitting up to the bedside chair. She is in no acute distress. She denies any complaints of pain or shortness of breath at this time. Bedside monitor is demonstrating normal sinus rhythm heart rate 76. Oxygen saturations are 95% on 3 L nasal cannula. Her labs this morning demonstrated a WBC count 10.6, hemoglobin 7.9, platelets 206, BUN 30, creatinine 1.23. She remains afebrile. She continues to ambulate with 2 person assist into the intensive care unit hallway. Patient is complaining about a productive cough. Objective - Vital Signs Vital signs: Vital Signs Temp 98.0 F 07/14/18 08:00 Pulse 79 07/14/18 08:49 Resp 24 07/14/18 08:00 BP 109/47 07/14/18 08:00 Pulse Ox 97 07/14/18 08:00 Intake & Output 07/13/18 07/14/18 07/14/18 18:59 06:59 18:59 Intake Total 550 225 360 Output Total 500 1550 950 Balance 50 1325 -590 Weight 73.8 kg Intake: Oral 550 225 360 Output: Urine 500 1550 950 Other: Voiding Method Indwelling Catheter Indwelling Catheter Indwelling Catheter ABP, PAP, CO, CI - Last Documented Arterial Blood Pressure 122/44 Pulmonary Artery Pressure 44/24 Cardiac Output 4.1 Cardiac Index 2.4 - Constitutional General appearance: Present: cooperative, no acute distress, obese - Respiratory Details: Lung sounds are essentially clear to her bilateral upper lobes, diminished bilateral bases. No wheezing or rhonchi present. Respirations are symmetrical and nonlabored. Oxygen saturation are 95% on 3 L nasal cannula. She is achieving 1001 L on her incentive spirometry. - Cardiovascular Details: Regular rhythm and rate. S1 and S2 present, negative for S3, gallop or murmur. Sternum is stable. Bedside telemetry is showing normal sinus rhythm heart rate 76. Atrial and ventricular epicardial pacemaker wires are in place and grounded. No edema present. Knee-high ANGEL hose and sequential compression devices in place from her bilateral lower extremities. Heart hugger is in place and she is demonstrating appropriate use. - Gastrointestinal Gastrointestinal Comment(s): Abdomen is soft, nontender and nondistended. Active bowel sounds all 4 abdominal quadrants. Tolerating oral intake. Bowel movement this a.m. - Genitourinary Genitourinary Comment(s): Marshall catheter for accurate I&O and urine retention. Draining clear yellow urine. 1200 mL output in the last 8 hours. - Integumentary Integumentary Comment(s): Skin is warm and dry. No clubbing or cyanosis is present. Midline sternal incision is clean, dry and approximated. No drainage or redness is present. Gauze dressing is clean, dry and in place. Right lower extremity EVH sites clean, dry and approximated. No drainage or redness present. Right foot fourth toe with small dry gangrene present. No drainage or redness present. - Neurologic Neurologic: Present: CNII-XII intact - Musculoskeletal Musculoskeletal: Present: gait normal, generalized weakness, strength equal bilaterally - Psychiatric Psychiatric: Present: A&O x's 3, appropriate affect, intact judgment & insight - Allied health notes Allied health notes reviewed: nursing - Labs CBC & Chem 7: 07/14/18 05:29 07/14/18 05:29 Labs: Abnormal Lab Results - Last 24 Hours (Table) 07/13/18 07/13/18 07/14/18 Range/Units 17:20 21:16 05:29 RBC 2.41 L (3.80-5.40) m/uL Hgb 7.9 L (11.4-16.0) gm/dL Hct 24.8 L (34.0-46.0) % MCV 103.1 H (80.0-100.0) fL RDW 16.6 H (11.5-15.5) % Neutrophils # 7.9 H (1.3-7.7) k/uL Sodium (137-145) mmol/L Chloride (98-107) mmol/L Carbon Dioxide (22-30) mmol/L BUN (7-17) mg/dL Creatinine (0.52-1.04) mg/dL Glucose (74-99) mg/dL POC Glucose (mg/dL) 163 H 126 H (75-99) mg/dL Calcium (8.4-10.2) mg/dL Magnesium (1.6-2.3) mg/dL Total Protein (6.3-8.2) g/dL Albumin (3.5-5.0) g/dL 07/14/18 07/14/18 Range/Units 05:29 07:21 RBC (3.80-5.40) m/uL Hgb (11.4-16.0) gm/dL Hct (34.0-46.0) % MCV (80.0-100.0) fL RDW (11.5-15.5) % Neutrophils # (1.3-7.7) k/uL Sodium 136 L (137-145) mmol/L Chloride 96 L (98-107) mmol/L Carbon Dioxide 32 H (22-30) mmol/L BUN 30 H (7-17) mg/dL Creatinine 1.23 H (0.52-1.04) mg/dL Glucose 114 H (74-99) mg/dL POC Glucose (mg/dL) 139 H (75-99) mg/dL Calcium 7.7 L (8.4-10.2) mg/dL Magnesium 2.4 H (1.6-2.3) mg/dL Total Protein 5.2 L (6.3-8.2) g/dL Albumin 2.7 L (3.5-5.0) g/dL - Imaging and Cardiology Chest x-ray: report reviewed, image reviewed Assessment and Plan (1) CAD (coronary artery disease), inaja coronary artery Current Visit: Yes Status: Chronic Code(s): I25.10 - ATHSCL HEART DISEASE OF [place] CORONARY ARTERY W/O ANG PCTRS SNOMED Code(s): 0481224032261 (2) COPD (chronic obstructive pulmonary disease) Current Visit: Yes Status: Chronic Code(s): J44.9 - CHRONIC OBSTRUCTIVE PULMONARY DISEASE, UNSPECIFIED SNOMED Code(s): 18802864 (3) Carotid arterial disease Current Visit: Yes Status: Chronic Code(s): I77.9 - DISORDER OF ARTERIES AND ARTERIOLES, UNSPECIFIED SNOMED Code(s): 353495094 (4) Chronic systolic heart failure Current Visit: Yes Status: Chronic Code(s): I50.22 - CHRONIC SYSTOLIC ( CONGESTIVE) HEART FAILURE SNOMED Code(s): 064045946 (5) Family history of heart disease Current Visit: Yes Status: Chronic Code(s): Z82.49 - FAMILY HX OF ISCHEM HEART DIS AND OTH DIS OF THE CIRC SYS SNOMED Code(s): 593017498 (6) Hyperlipidemia Current Visit: Yes Status: Chronic Code(s): E78.5 - HYPERLIPIDEMIA, UNSPECIFIED SNOMED Code(s): 55222010 (7) Left main coronary artery disease Current Visit: Yes Status: Chronic Code(s): I25.10 - ATHSCL HEART DISEASE OF [place] CORONARY ARTERY W/O ANG PCTRS SNOMED Code(s): 056502549 (8) Medical non-compliance Current Visit: Yes Status: Chronic Code(s): Z91.19 - PATIENT'S NONCOMPLIANCE W OTH MEDICAL TREATMENT AND REGIMEN SNOMED Code(s): 342334829 (9) On home O2 Current Visit: Yes Status: Chronic Code(s): Z99.81 - DEPENDENCE ON SUPPLEMENTAL OXYGEN SNOMED Code(s): 801909121313 (10) Peripheral artery disease Current Visit: Yes Status: Chronic Code(s): I73.9 - PERIPHERAL VASCULAR DISEASE, UNSPECIFIED SNOMED Code(s): 802702563 (11) Severe mitral regurgitation Current Visit: Yes Status: Chronic Code(s): I34.0 - NONRHEUMATIC MITRAL ( VALVE) INSUFFICIENCY SNOMED Code(s): 49615641 (12) History of breast cancer Current Visit: No Status: Resolved Code(s): Z85.3 - PERSONAL HISTORY OF MALIGNANT NEOPLASM OF BREAST SNOMED Code(s): 049000031 (13) History of chemotherapy Current Visit: No Status: Resolved Code(s): Z92.21 - PERSONAL HISTORY OF ANTINEOPLASTIC CHEMOTHERAPY SNOMED Code(s): 457442369688614 (14) History of right mastectomy Current Visit: No Status: Resolved Code(s): Z90.11 - ACQUIRED ABSENCE OF RIGHT BREAST AND NIPPLE SNOMED Code(s): 195766627 (15) Hypothyroid Current Visit: No Status: Resolved Code(s): E03.9 - HYPOTHYROIDISM, UNSPECIFIED SNOMED Code(s): 96380193 (16) Previous myocardial infarction older than 8 weeks Current Visit: No Status: Resolved Code(s): I25.2 - OLD MYOCARDIAL INFARCTION SNOMED Code(s): 3072986 (17) Tobacco dependence in remission Current Visit: No Status: Resolved Code(s): F17.201 - NICOTINE DEPENDENCE, UNSPECIFIED, IN REMISSION SNOMED Code(s): 080453922 Plan: 1. Continue aspirin, statin, Plavix, beta gregg and lisinopril. Will increase her beta gregg therapy as tolerated. 2. Wean O2 as tolerated. Encourage incentive spirometry 10 times every hour while awake. 3. Bronchodilators, inhaled steroids per pulmonology management. 4. Lasix 20 mg IV 1 today. 5. Increase activity, ambulate as tolerated. PT/OT/cardiac rehab following. 6. Continue Marshall catheter for urinary retention. 7. Will monitor daily labs and x-rays. Electrolyte replacement per protocol. 8. Pain control with current medication regimen. 9. Insulin management per primary care service. 10. GI prophylaxis with Protonix, DVT prophylaxis with subcu heparin, SCDs. 11. Encourage continued smoking cessation. 12. Pull atrial and ventricular epicardial pacemaker wires. Atrial and ventricular epicardial pacemaker wires removed without incident at 9:30 AM today. 13. Continue Amiodarone 400 mg by mouth twice a day for atrial fibrillation prophylaxis. 14. Dr. Abarca's consult noted and appreciated. Anticipate need for inpatient rehab upon discharge. 15. Transferred to 3 south cardiac stepdown unit when bed available. 16. More recommendations to follow based on patient's clinical course. Time with Patient: Greater than 30
[2018-07-14 12:02] LABS: Glucose,Whole Blood 81 mg/dL (75-99)
[2018-07-14] MEDS: LISINOPRIL 2.5 MG TAB PO SCH (12:04)
[2018-07-14] MEDS: ASCORBIC ACID 500 MG TAB PO SCH (12:04)
[2018-07-14] MEDS: CHOLECALCIFEROL 1,000 UNIT TAB PO SCH (12:05)
--- NOTE | 2018-07-14 12:23 | PN ---
PROGRESS NOTE DATE OF SERVICE: July 14, 2018 This is a patient who is postop day #7 status post 5 vessel bypass grafting and mitral valve repair. The patient does have significant COPD. She has got stage II disease. FEV1 is 63% of predicted. All-in-all doing reasonably well. The patient also has a history of hypothyroidism, prediabetes, carotid artery disease, scoliosis, vitamin D deficiency, heart failure, carotid artery disease, nocturnal hypoxemia, breast cancer, and previous history of heavy tobacco use. The patient is doing relatively well. Apparently they have consulted inpatient rehab with Dr. Abarca to see whether not she might be a good candidate for the [facility] inpatient rehab Unit. The patient currently remains on O2 at 3 L. Not receiving any IV fluids. As I mentioned, postop day #7. She is postop day #7 status post 5 vessel bypass grafting and mitral valve repair done by Dr. Nathaniel Marks. Current vital signs are reviewed. Her temperature is 98. Heart rate 77, respiratory rate 24, blood pressure 109/47, mean 67. 3 L saturation 97%. Appears in no acute distress. HEENT examination is grossly unremarkable. Mucous membranes are moist. No oral lesions. Nasal O2 in place. Neck is supple. Full range of motion. No adenopathy or thyromegaly. Cardiovascular examination reveals regular rhythm and rate. S1, S2 normal. No S3, S4, or murmur. Lungs reveal mostly clear breath sounds. A few scattered rhonchi. No wheezes or crackles. Abdomen is soft. Bowel sounds are heard. Extremities are intact. No cyanosis, clubbing, or edema. Skin without rash. Neurologic examination is brief but nonfocal. A chest x-ray shows some small effusions and some bibasilar atelectasis, more right- sided than left. LABS: Reviewed. White count 10.6, hemoglobin 7.9, hematocrit 24.8, platelet count 206,000. Sodium 136, potassium 4, chloride 96, CO2 is 32, BUN and creatinine were 30 and 1.23. Microbiologic studies are all negative. Medications are reviewed. ASSESSMENT: 1. Postoperative day #7, status post 5 vessel bypass grafting and mitral valve repair. 2. Postsurgical chest x-ray abnormalities including effusions and atelectasis, improved. 3. Postoperative routine ventilator management, resolved. 4. Gold stage II chronic obstructive pulmonary disease with an FEV1 that is 63% of predicted. 5. History of hypothyroidism. 6. Prediabetes. 7. Carotid artery disease. 8. Scoliosis. 9. Vitamin D deficiency. 10.History of postoperative acute blood loss anemia. 11.Acute on chronic systolic congestive heart failure. 12.Chronic nocturnal hypoxemia. 13.History of breast cancer with previous right-sided mastectomy. 14.Previous history of tobacco dependence. PLAN: The patient is doing relatively well. The patient remains on O2 at 3 L. Not receiving any IV fluids. The patient is currently postop day #7 5 vessel bypass grafting and mitral valve annuloplasty. The patient is currently being evaluated by the rehab doctor for possible inpatient rehab at [facility]. No additional recommendations are made. We will continue to follow. Continue with breathing treatments. Deep breathing coughing, clearing of secretions and incentive spirometry. MMODL / IJN: [id number] /
--- NOTE | 2018-07-14 15:23 | PN ---
PROGRESS NOTE Alan is a 73-year-old lady with history of coronary artery disease and mitral regurgitation who is status post bypass and mitral valve repair. The pacer wire had been removed. She is doing well. Remains in sinus rhythm. Currently on amiodarone, aspirin, Lipitor, Lasix, Zestril, Lopressor. On exam, heart rate is 79 beats per minute. Blood pressure is 109/47, respiratory rate 18. Chest exam reveals diminished air entry at the bases. Heart exam reveals first and second heart sounds. No gallop. Exam of extremities did not reveal any edema. Labs show a hemoglobin of 7.9, potassium is 4, creatinine is 1.2. ASSESSMENT: 1. Coronary artery disease status post coronary artery bypass grafting. 2. Mitral regurgitation status post mitral valve repair. 3. History of chronic systolic heart failure. PLAN: Patient is doing well. She will continue with the current medications. MMODL / IJN: [id number] /
[2018-07-14] MEDS: ACETAMINOPHEN TAB 325 MG TAB PO PRN (16:15)
--- NOTE | 2018-07-14 16:49 | P.PN ---
Subjective Progress Note Date: 07/14/18 Principal diagnosis: Patient is a 73-year-old female with a past medical history of COPD, multivessel coronary artery disease and severe mitral regurg, breast cancer, hypothyroidism, prediabetes and vitamin D deficiency who presented for elective cardiac bypass surgery. On 07/07 she underwent [address] Marks. She underwent LIU to the LAD, SVG to the first and second obtuse marginal as well as the RCA. She had mitral valve annuloplasty and ligation of the left atrial appendage. Intraoperatively she received 2 units of packed red blood cells, 1 unit of FFP, and 1 unit of platelets. She subsequently was admitted to the ICU. Extubated on 07/07. Has been progressing well. Overnight on 07/09 she became hypoxic and required a nonrebreather is secondary to atelectasis and pleural effusions she was diuresed and maintain on breathing treatments . She was transitioned on Arvo high flow on 07/10 and has been weane down to 3 L nasal cannula m Then overnight on 07/10 she developedA. fib with RVR needing an Amiodarone drip which was transitioned to oral. She also developed urinary retention requiring reinsertion of the Mcdaniel catheter. She Has been slowly progressing Patient reporting fatigue she is coughing nonproductive, reports that her breathing is much improved , sister at bedside reporting left fourth digit On the lower extremity appears to be improving Objective - Vital Signs Vital signs: Vital Signs Temp 97.8 F 07/14/18 12:00 Pulse 76 07/14/18 12:09 Resp 25 H 07/14/18 12:00 BP 109/48 07/14/18 12:00 Pulse Ox 98 07/14/18 12:00 Intake & Output 07/13/18 07/14/18 07/14/18 18:59 06:59 18:59 Intake Total 550 225 360 Output Total 500 1550 950 Balance 50 -1325 -590 Weight 73.8 kg Intake: Oral 550 225 360 Output: Urine 500 1550 950 Other: Voiding Method Indwelling Catheter Indwelling Catheter Indwelling Catheter ABP, PAP, CO, CI - Last Documented Arterial Blood Pressure 122/44 Pulmonary Artery Pressure 44/24 Cardiac Output 4.1 Cardiac Index 2.4 - Exam General: Non toxic, no distress, appears at stated age Derm: Right fourth toe with ischemic discoloration and chronic necrotic ulcer- no purulent drainage noted, no warmth, no swelling of the toe. warm, dry Head: atraumatic, normocephalic, symmetric Eyes: EOMI, no lid lag, anicteric sclera Mouth: no lip lesion, mucus membranes dry Cardiovascular: S1S2 with murmur, positive posterior tibial pulse bilateral, Lungs: Decreased breath sounds bilaterally, no rhonchi, no rales , no accessory muscle use Abdominal: soft, nontender to palpation, no guarding, no appreciable organomegaly Ext: no gross muscle atrophy, Trace edema right foot, no contractures Neuro: CN II-XI grossly intact, no focal neuro deficits Psych: Alert, oriented, appropriate affect - Labs CBC & Chem 7: 07/14/18 05:29 07/14/18 05:29 Labs: Abnormal Lab Results - Last 24 Hours (Table) 07/13/18 07/13/18 07/14/18 Range/Units 17:20 21:16 05:29 RBC 2.41 L (3.80-5.40) m/uL Hgb 7.9 L (11.4-16.0) gm/dL Hct 24.8 L (34.0-46.0) % MCV 103.1 H (80.0-100.0) fL RDW 16.6 H (11.5-15.5) % Neutrophils # 7.9 H (1.3-7.7) k/uL Sodium (137-145) mmol/L Chloride (98-107) mmol/L Carbon Dioxide (22-30) mmol/L BUN (7-17) mg/dL Creatinine (0.52-1.04) mg/dL Glucose (74-99) mg/dL POC Glucose (mg/dL) 163 H 126 H (75-99) mg/dL Calcium (8.4-10.2) mg/dL Magnesium (1.6-2.3) mg/dL Total Protein (6.3-8.2) g/dL Albumin (3.5-5.0) g/dL 07/14/18 07/14/18 Range/Units 05:29 07:21 RBC (3.80-5.40) m/uL Hgb (11.4-16.0) gm/dL Hct (34.0-46.0) % MCV (80.0-100.0) fL RDW (11.5-15.5) % Neutrophils # (1.3-7.7) k/uL Sodium 136 L (137-145) mmol/L Chloride 96 L (98-107) mmol/L Carbon Dioxide 32 H (22-30) mmol/L BUN 30 H (7-17) mg/dL Creatinine 1.23 H (0.52-1.04) mg/dL Glucose 114 H (74-99) mg/dL POC Glucose (mg/dL) 139 H (75-99) mg/dL Calcium 7.7 L (8.4-10.2) mg/dL Magnesium 2.4 H (1.6-2.3) mg/dL Total Protein 5.2 L (6.3-8.2) g/dL Albumin 2.7 L (3.5-5.0) g/dL Microbiology - Last 24 Hours (Table) 07/11/18 19:30 Gram Stain - Final Sputum Sputum Culture - Final Assessment and Plan Plan: Patient is a 73 yo CF here with 5 vessel CABG and MV annuloplasty Leukocytosis, improving - follow fever profile Constipation - continue bowel regiment - add mag citrate vs suppository in AM if no BM Urinary retention - s/p mcdaniel cath Prediabetes - A1C 5.9 06/24, down from 6.3 - SSI, follow BS closely Right 4 toe chronic ulcer due to peripheral arterial disease - no signs of infection - continue monitoring - outpatient follow-up A fib -Amiodarone Acute blood loss anemia and thrombocytopenia , anticipated outcome of surgery - s/p 1 additional unit on 07/10. - stable - Oral supplementation X 30 days CAD and mitral regurg s/p CABG and mitral valve annuloplasty - management per primary team COPD without exacerbation - Pulm recs - Bronchodilators - pulmonary hygiene Hypothyroidism - Not currently on medications at home. - TSH 1.47 in Jun 2018 Elevated liver enzymes, mild, resolved right basilar airspace disease, likely atalectasis, resolved Chronic Vit D Deficiency Scoliosis Carotid arterial disease
--- NOTE | 2018-07-14 16:49 | PN ---
PROGRESS NOTE DATE OF SERVICE: 07/12/2018 This patient is status post coronary artery bypass surgery x5, as well as a mitral valve repair. The patient remains stable cardiac-cote. Patient did have a ligation of the left atrial appendage. The patient currently is getting amiodarone and he is being maintained in the normal sinus rhythm. Blood pressure is 102/45 mmHg. The heart rate is 68 per minute. First and second heart sounds are normal. Lungs examination revealed bilateral diminished air entry. Patient's creatinine is 0.91, BUN is 36, he is currently is in normal sinus rhythm. The patient's hemoglobin is 7.6. ASSESSMENT AND PLAN: Status post coronary artery bypass surgery. Status post mitral valve repair patient being maintained on normal sinus rhythm. Patient is currently getting oral amiodarone. In view of the mitral valve repair patient to maybe consider at least for 3 months of Coumadin. MMODL / IJN: [id number] /
--- NOTE | 2018-07-14 16:52 | PN ---
PROGRESS NOTE DATE OF SERVICE: 07/13/2018 This patient is status post coronary artery bypass surgery and mitral valve repair. The patient's course over the last 24 hours reviewed. Vital signs reviewed. The patient has remained stable. The patient was put on renal dose of dopamine yesterday. Her urine output is improved, but she is feeling better. Her oxygen saturation is now 96%. BUN is 33, creatinine is 0.98. Blood pressure is 105/49 mmHg. First and second heart sounds are heard. Lungs examination revealed a few scattered wheezes. The patient's hemoglobin is 7.9, electrolytes are normal. We will continue the current medications. Follow chest x-rays. MMODL / IJN: [id number] /
[2018-07-14 17:17] LABS: Glucose,Whole Blood 175 mg/dL (75-99)
[2018-07-14 21:54] LABS: Glucose,Whole Blood 162 mg/dL (75-99)
[2018-07-14] MEDS: SENNOSIDES-DOCUSATE SODIUM 1 EACH TAB PO SCH (21:56)
[2018-07-15] MEDS: HEPARIN SODIUM,PORCINE 5,000 UNIT/ML 1 ML VIAL SQ SCH ×4 (00:37→22:48)
[2018-07-15 05:13] LABS: Anisocytosis Slight; Basophils % (A) 0 %; Eosinophils # (A) 0.5 k/uL (0-0.7); Eosinophils % (A) 5 %; HCT 25.1 % (34.0-46.0); HGB 7.8 gm/dL (11.4-16.0); Hypochromasia Moderate; Lymphocytes # (A) 1.7 k/uL (1.0-4.8); Lymphocytes % (A) 18 %; MCH 32.2 pg (25.0-35.0); MCHC 31.1 g/dL (31.0-37.0); MCV 103.5 fL (80.0-100.0); Macrocytosis Moderate; Mean Platelet Volume 7.7; Monocytes # (A) 0.6 k/uL (0-1.0); Monocytes % (A) 6 %; Neutrophils # (A) 6.6 k/uL (1.3-7.7); Neutrophils % (A) 68 %; Platelet Count 216 k/uL (150-450); RBC 2.42 m/uL (3.80-5.40); RDW 16.3 % (11.5-15.5); WBC 9.7 k/uL (3.8-10.6)
[2018-07-15 05:27] LABS: Albumin 2.8 g/dL (3.5-5.0); Potassium 4.3 mmol/L (3.5-5.1); Total Bilirubin 0.7 mg/dL (0.2-1.3); Total Protein 5.3 g/dL (6.3-8.2)
[2018-07-15 07:09] LABS: Glucose,Whole Blood 111 mg/dL (75-99)
[2018-07-15] MEDS ORDERED: FUROSEMIDE 10 MG/ML 2 ML VIAL IV ONE (07:39)
[2018-07-15] MEDS: METOPROLOL TARTRATE 12.5 MG TAB PO SCH ×2 (07:57→20:06)
[2018-07-15] MEDS: guaiFENesin 600 MG TABLET.ER PO SCH ×2 (07:57→20:05)
[2018-07-15] MEDS: FERROUS SULFATE 325 MG TAB PO SCH ×2 (07:57→16:07)
[2018-07-15] MEDS: CLOPIDOGREL 75 MG TAB PO SCH (07:57)
[2018-07-15] MEDS: AMIODARONE 200 MG TAB PO SCH ×2 (07:57→20:05)
[2018-07-15] MEDS: PANTOPRAZOLE 40 MG TABLET PO SCH (07:57)
[2018-07-15] MEDS: GABAPENTIN 300 MG CAP PO SCH ×3 (07:57→20:06)
[2018-07-15] MEDS: ATORVASTATIN 40 MG TAB PO SCH (07:58)
[2018-07-15] MEDS: INSULIN ASPART 100 UNIT/ML 1 ML 10 ML VIAL SQ SCH ×4 (07:58→21:14)
[2018-07-15] MEDS: ASPIRIN 325 MG TAB PO SCH (07:58)
[2018-07-15] MEDS: IPRATROPIUM-ALBUTEROL 3 ML NEB INHALATION SCH ×4 (08:38→21:13)
[2018-07-15] MEDS: SYMBICORT 160-4.5 MCG INHALER INHALATION SCH ×2 (08:38→21:13)
--- NOTE | 2018-07-15 08:42 | XR ---
EXAMINATION TYPE: XR chest 2V DATE OF EXAM: 07/15/2018 COMPARISON: 07/14/2018 INDICATION: Post CABG TECHNIQUE: Frontal and lateral views of the chest are obtained. FINDINGS: The heart size is moderately prominent. Sternotomy wires are present. No surgery.. The pulmonary vasculature is upper limits of normal.. Surgical clips in right axillary region. A retrocardiac infiltrate may be some left diaphragm.. IMPRESSION: 1. Exam is stable from comparison. 2. Retrocardiac infiltrate may be present. Continued follow-up is recommended. 3. Cardiomegaly with borderline prominence of the pulmonary vascular markings.
--- NOTE | 2018-07-15 09:11 | P.PN ---
Subjective Progress Note Date: 07/15/18 Principal diagnosis: Status post CABG, mitral valve repair, postoperative day 7 This is a 73-year-old female with known history of COPD, Gold stage II, FEV1 is 63%. usually sees Dr. Perez, she is mostly on oxygen at night. Patient was recently found to have multivessel coronary artery disease and severe mitral regurgitation. She was cleared by Dr. Perez for surgery based on her PFTs done in the office, and on 07/07/2018, patient underwent multivessel myocardial revascularization, she underwent five-vessel bypass surgery, with LIU to LAD, SVG to the first and second obtuse marginal as well as the RCA. She also had mitral valve annuloplasty and ligation of left atrial appendage. Postoperatively, patient was on mechanical ventilation, and I was asked to see her on consultation. Her postoperative course was relatively uneventful. She hours after her surgery, I was called about her ventilator settings, her weaning ABG, and initially she was borderline for extubation. Hence we delayed the extubation about 2 hours. As her mental status improved and the patient became more awake, follow-up ABG was done, follow-up trial on pressure support and CPAP was given, patient was extubated uneventfully. Later at night the patient developed some desaturation, chest x-ray showed evidence of interstitial edema, responded to 20 mg of Lasix given and her O2 saturation improved presently on 15 L high flow nasal cannula, patient is not in any distress. Seen this morning, patient is doing well, relatively asymptomatic, and O2 saturation is in the mid 90s on 50% high flow nasal cannula. Patient was reevaluated today on 07/09/2018, remains in the ICU, she was extubated yesterday uneventfully. Patient is doing great, she feels generally weak, doing fairly well with incentive spirometry and area where between 500- 750 mL. She is already ambulating in the hallway, but she was noted to be quite weak with assistance while ambulating in front of the room in the ICU hallway. Denies any chest pain, no cough, no wheezing, no shortness of breath, remains on few liters nasal cannula, O2 saturation is in the low 90s. Chest x- ray this morning showed a trace of right pleural effusion, small left pleural effusion, and atelectasis. This is basically expected after CABG. All labs were reviewed, her hemoglobin was noted to be 6.8, however decision whether the patient is to be transfused would be left to the cardiac surgeon on the case. Renal functioning showed a BUN of 32 creatinine of 1.1. Creatinine is a bit worse compared to baseline before admission. Patient was reevaluated today on 07/10/2018, she is presently postoperative day #3 , CABG 5 with sequential LIU to diagonal and LAD, reverse saphenous vein graft to first and second obtuse marginal and right coronary artery mitral valve annuloplasty ligation of left atrial appendage. Last night the patient was noted to desaturate, and she required to be placed on non-rebreather mask for a period of time basically overnight. Today she is on a high flow nasal cannula, and she may have to go back on the nonrebreather mask if she doesn't continue to maintain adequate saturation. She was given Lasix last night, and she diuresed almost 2 L overnight. Chest x-ray continues to show some evidence of interstitial edema. And left lower lobe atelectasis with possibly a small tiny left pleural effusion. All chest tubes have been pulled out yesterday, and the patient is doing poorly with incentive spirometry. Hemoglobin remains low at 6.8. Electrolytes are normal BUN is 37 creatinine is 1.06. Reevaluated today on 07/11/2018, patient is postoperative day #4. Remains in the intensive care unit, presently on a high flow nasal cannula, actually she is on airvo with high flow and high FiO2 to maintain O2 saturation in the 90s. Clinically the patient is doing better than expected, her chest x-ray continues to show interstitial edema, atelectasis at the left base, small bilateral pleural effusions, however the ultrasound which I requested and reviewed does not show much fluid to consider thoracentesis on this patient. Patient is on Lasix, her renal functioning is showing slight prerenal picture, hemoglobin today is better at 8.8. Patient was given a unit of packed RBCs yesterday in p.m.. BUN today is 36 creatinine 0.83. Patient was reevaluated today on 07/12/2018, she is postoperative day #5, remains in the intensive care unit, on high flow and high FiO2 oxygen, actually she is on airvo. O2 saturation is 98%. Patient is on 50 L/m flow, and 60% FiO2. O2 saturation is in the mid and high 90s. Chest x-ray continues to show atelectasis bilaterally, and some component of interstitial edema. Remains on Lasix. In spite of her condition the patient seems to be comfortable, but could not lower the FiO2 down any further. She is being titrated to keep the saturation above 90%. Remains on incentive spirometry. Her hemoglobin today is 7.6 electrodes are normal renal profile is normal BUN is a bit elevated at 36. Reevaluated today on 07/13/2018, remains in the ICU, patient is postoperative day #6. Yesterday she was placed on renal perfusion dose of dopamine, patient had a significant improvement in her urine output, and we were able to cut down her FiO2 from high flow and high FiO2, she is presently now on few liters nasal cannula. She is actually on 3 L nasal cannula, and her O2 saturation is 96%. Patient is feeling much better, no cough no wheezing no shortness of breath no chest pain. Her BUN is a bit elevated at 33 creatinine is 0.98. Patient is afebrile, and basically asymptomatic today. On 07/15/2018 patient remains stable in the intensive care unit, she is sitting up in the recliner, in no acute distress, currently on 2 L per nasal cannula and her pulse ox is 94%, hemodynamically stable, no fever or chills, remains in sinus rhythm. Today's labs have been reviewed, WBC is 9.7, hemoglobin is 7.8, electrodes were within normal limits, B1 is 26 and creatinine is 1.05. Sputum culture showed no growth. Lung sounds positive for some minimal crackles at the bases. Patient has been ambulating with assistance, tolerating it fairly well, although weak. Today's chest x-ray has been reviewed with Dr. Villegas, and showed cardiomegaly, with prominence of the pulmonary vascular markings, suggesting fluid overload, patient did receive on the dose of IV Lasix per CT surgery today. Over the last 24 hours she is in 1315 mL negative fluid balance. Objective - Vital Signs Vital signs: Vital Signs Temp 97.5 F L 07/15/18 08:00 Pulse 84 07/15/18 08:51 Resp 23 07/15/18 08:00 BP 121/51 07/15/18 08:00 Pulse Ox 94 L 07/15/18 08:00 Intake & Output 07/14/18 07/15/18 07/15/18 18:59 06:59 18:59 Intake Total 860 225 360 Output Total 1200 1200 220 Balance -340 -975 140 Intake: Oral 860 225 360 Output: Urine 1200 1200 220 Other: Voiding Method Indwelling Catheter Indwelling Catheter ABP, PAP, CO, CI - Last Documented Arterial Blood Pressure 122/44 Pulmonary Artery Pressure 44/24 Cardiac Output 4.1 Cardiac Index 2.4 - Exam Physical Exam: Revealed a 73-year-old female in no distress, on 3 L nasal cannula. Head: Atraumatic, normocephalic. HEENT:[Neck is supple.] [No neck masses.] [No thyromegaly.] [No JVD.] PERRLA, EOMI, no icterus. Chest: [Slightly diminished breath sounds at the left base, limited bibasilar crackles Cardiac Exam: [Normal S1 and S2, no S3 gallop, no murmur.] Abdomen: [Soft, nontender, no megaly, no rebound, no guarding, normal bowel sounds.] Extremities: [No clubbing, no edema, no cyanosis.] Neurological Exam: [No focal neurologic deficit.] Skin: No rashes. Psychiatric: Normal mood affect and mental status examination. - Labs CBC & Chem 7: 07/15/18 04:33 07/15/18 04:33 Labs: Abnormal Lab Results - Last 24 Hours (Table) 07/14/18 07/14/18 07/15/18 Range/Units 17:13 21:39 04:33 RBC 2.42 L (3.80-5.40) m/uL Hgb 7.8 L (11.4-16.0) gm/dL Hct 25.1 L (34.0-46.0) % MCV 103.5 H (80.0-100.0) fL RDW 16.3 H (11.5-15.5) % BUN (7-17) mg/dL Creatinine (0.52-1.04) mg/dL Glucose (74-99) mg/dL POC Glucose (mg/dL) 175 H 162 H (75-99) mg/dL Calcium (8.4-10.2) mg/dL Total Protein (6.3-8.2) g/dL Albumin (3.5-5.0) g/dL 07/15/18 07/15/18 Range/Units 04:33 07:06 RBC (3.80-5.40) m/uL Hgb (11.4-16.0) gm/dL Hct (34.0-46.0) % MCV (80.0-100.0) fL RDW (11.5-15.5) % BUN 26 H (7-17) mg/dL Creatinine 1.05 H (0.52-1.04) mg/dL Glucose 106 H (74-99) mg/dL POC Glucose (mg/dL) 111 H (75-99) mg/dL Calcium 8.0 L (8.4-10.2) mg/dL Total Protein 5.3 L (6.3-8.2) g/dL Albumin 2.8 L (3.5-5.0) g/dL Microbiology - Last 24 Hours (Table) 07/11/18 19:30 Gram Stain - Final Sputum Sputum Culture - Final Assessment and Plan Plan: 1 status post CABG, mitral valve annuloplasty, postoperative day #7 2 bilateral pleural effusions and atelectasis, expected post surgery/CABG. slightly improved based on the chest x-ray from today. 3 gold stage II COPD, FEV1 63%. Remains on bronchodilators. 4 history of hypothyroidism 5 multiple comorbidities including prediabetes, carotid artery disease, scoliosis, vitamin D deficiency, and acute blood loss anemia, expected post surgery. 6 acute on chronic chronic systolic congestive heart failure 7 carotid artery disease 8 chronic hypoxic respiratory failure, on home O2 especially at night. 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 11 acute on chronic hypoxic respiratory failure, improved with diuretics and renal perfusion dose of dopamine. Plan: Continue current plan of care, nebulized bronchodilators, Symbicort. Patient did receive a dose of IV Lasix per CT surgery today, today's chest x-ray was reviewed with Dr. Dr. Villegas, showed cardiomegaly and underlying increased pulmonary vascularity, suggesting fluid overload. Clinically patient remains stable, no worsening dyspnea, currently just on 2 L per nasal cannula, encourage deep breathing and coughing, is awaiting placement to [facility] re[facility]. We'll continue to follow I performed a history & physical examination of the patient and discussed their management with my nurse practitioner, Kath Barger. I reviewed the nurse practitioner's note and agree with the documented findings and plan of care. Lung sounds are positive for minimal bibasilar crackles. The findings and the impression was discussed with the patient. I attest to the documentation by the nurse practitioner. Time with Patient: Less than 30
[2018-07-15 10:22] VITALS: BMI 27.1
[2018-07-15 11:59] LABS: Glucose,Whole Blood 145 mg/dL (75-99)
[2018-07-15] MEDS: LISINOPRIL 2.5 MG TAB PO SCH (12:24)
[2018-07-15] MEDS: MULTIVITAMINS, THERA 1 EACH TAB PO SCH (12:24)
[2018-07-15] MEDS: ASCORBIC ACID 500 MG TAB PO SCH (12:24)
[2018-07-15] MEDS: CHOLECALCIFEROL 1,000 UNIT TAB PO SCH (12:25)
--- NOTE | 2018-07-15 12:43 | P.PN ---
Subjective Progress Note Date: 07/15/18 Principal diagnosis: Coronary artery disease with left main disease and mitral valve regurgitation, history of myocardial infarction, hyperlipidemia, chronic systolic heart failure with most recent ejection fraction of 45%, history of right breast cancer with mastectomy, status post chemo and radiation in 1997, hypothyroidism , previous tobacco dependence with [id number] history, COPD with preoperative FEV1 63% of predicted, home oxygen use on a when necessary basis at bedtime, peripheral artery disease with dry gangrene of the fourth toe on the right foot and bilateral ABIs of 0.51 to her left lower extremity and 0.52 to her right lower extremity, right carotid stenosis 50-79%, medical noncompliance, significant family history of coronary artery disease. POD #8 coronary artery bypass grafting 5 with sequential LIU to the diagonal coronary artery and left anterior descending coronary artery, a reverse greater saphenous vein grafts to first and second obtuse marginal and right coronary arteries. Mitral valve annuloplasty with a 24 mm physio-2 annuloplasty ring. Ligation of the left atrial appendage. Endovascular vein harvest of the greater saphenous vein from the right lower extremity from the ankle to the groin. Intraoperative transesophageal echocardiogram by anesthesia. Postoperative acute blood loss anemia, an expected outcome given hemodilution and cardiopulmonary bypass pump. Postoperative paroxysmal atrial fibrillation, an unexpected but potential outcome of surgery. Postoperative urinary retention requiring placement of Marshall catheter. The patient is currently sitting up to the bedside chair. She is in no acute distress. She denies any complaints of pain or shortness of breath at this time. Bedside monitor is demonstrating normal sinus rhythm heart rate 84. Oxygen saturations are 95% on 2 L nasal cannula. Her labs this morning demonstrated a WBC count 9.7, hemoglobin 7.8, platelets 216, BUN 26, creatinine 1.05. She remains afebrile. She continues to ambulate with 2 person assist into the intensive care unit hallway. Her sister is at her bedside, their questions were answered to the best of my ability. Objective - Vital Signs Vital signs: Vital Signs Temp 97.5 F L 07/15/18 08:00 Pulse 84 07/15/18 08:51 Resp 23 07/15/18 08:00 BP 121/51 07/15/18 08:00 Pulse Ox 94 L 07/15/18 08:00 Intake & Output 07/14/18 07/15/18 07/15/18 18:59 06:59 18:59 Intake Total 860 225 360 Output Total 1200 1200 220 Balance -340 -975 140 Intake: Oral 860 225 360 Output: Urine 1200 1200 220 Other: Voiding Method Indwelling Catheter Indwelling Catheter ABP, PAP, CO, CI - Last Documented Arterial Blood Pressure 122/44 Pulmonary Artery Pressure 44/24 Cardiac Output 4.1 Cardiac Index 2.4 - Constitutional General appearance: Present: cooperative, no acute distress, obese - Respiratory Details: Lungs sounds essentially clear throughout, diminished to her bilateral bases. Respirations are symmetrical and nonlabored. Oxygen saturation are 95% on 2 L nasal cannula. She is achieving 1000 mL on her incentive spirometry with encouragement. She has a productive cough with thin yellow sputum. - Cardiovascular Details: Regular rhythm and rate. S1 and S2 present, negative for S3, gallop or murmur. Sternum is stable. Bedside telemetry showing normal sinus rhythm heart rate 84. No edema present. Heart hugger is in place and she is demonstrating appropriate use. Knee-high ANGEL hose and sequential compression devices in place to her bilateral lower extremities. - Gastrointestinal Gastrointestinal Comment(s): Abdomen is soft, nontender and nondistended. Active bowel sounds all 4 abdominal quadrants. Tolerating oral intake. Bowel movement this a.m. - Genitourinary Genitourinary Comment(s): Marshall catheter for accurate I&O and urine retention. Draining clear yellow urine. 750 mL output in the last 8 hours. - Integumentary Integumentary Comment(s): Skin is warm and dry. No clubbing or cyanosis present. Midline sternal incision is clean, dry and approximated. No drainage or redness present. Right lower extremity EVH site clean, dry and approximated. No drainage or redness present. - Neurologic Neurologic: Present: CNII-XII intact - Musculoskeletal Musculoskeletal: Present: gait normal, generalized weakness, strength equal bilaterally - Psychiatric Psychiatric: Present: A&O x's 3, appropriate affect, intact judgment & insight - Allied health notes Allied health notes reviewed: nursing - Labs CBC & Chem 7: 07/15/18 04:33 07/15/18 04:33 Labs: Abnormal Lab Results - Last 24 Hours (Table) 07/14/18 07/14/18 07/15/18 Range/Units 17:13 21:39 04:33 RBC 2.42 L (3.80-5.40) m/uL Hgb 7.8 L (11.4-16.0) gm/dL Hct 25.1 L (34.0-46.0) % MCV 103.5 H (80.0-100.0) fL RDW 16.3 H (11.5-15.5) % BUN (7-17) mg/dL Creatinine (0.52-1.04) mg/dL Glucose (74-99) mg/dL POC Glucose (mg/dL) 175 H 162 H (75-99) mg/dL Calcium (8.4-10.2) mg/dL Total Protein (6.3-8.2) g/dL Albumin (3.5-5.0) g/dL 07/15/18 07/15/18 Range/Units 04:33 07:06 RBC (3.80-5.40) m/uL Hgb (11.4-16.0) gm/dL Hct (34.0-46.0) % MCV (80.0-100.0) fL RDW (11.5-15.5) % BUN 26 H (7-17) mg/dL Creatinine 1.05 H (0.52-1.04) mg/dL Glucose 106 H (74-99) mg/dL POC Glucose (mg/dL) 111 H (75-99) mg/dL Calcium 8.0 L (8.4-10.2) mg/dL Total Protein 5.3 L (6.3-8.2) g/dL Albumin 2.8 L (3.5-5.0) g/dL Microbiology - Last 24 Hours (Table) 07/11/18 19:30 Gram Stain - Final Sputum Sputum Culture - Final - Imaging and Cardiology Chest x-ray: report reviewed, image reviewed Assessment and Plan (1) CAD (coronary artery disease), [place] coronary artery Current Visit: Yes Status: Chronic Code(s): I25.10 - ATHSCL HEART DISEASE OF [place] CORONARY ARTERY W/O ANG PCTRS SNOMED Code(s): 5350379125517 (2) COPD (chronic obstructive pulmonary disease) Current Visit: Yes Status: Chronic Code(s): J44.9 - CHRONIC OBSTRUCTIVE PULMONARY DISEASE, UNSPECIFIED SNOMED Code(s): 96902418 (3) Carotid arterial disease Current Visit: Yes Status: Chronic Code(s): I77.9 - DISORDER OF ARTERIES AND ARTERIOLES, UNSPECIFIED SNOMED Code(s): 855811765 (4) Chronic systolic heart failure Current Visit: Yes Status: Chronic Code(s): I50.22 - CHRONIC SYSTOLIC ( CONGESTIVE) HEART FAILURE SNOMED Code(s): 513459945 (5) Family history of heart disease Current Visit: Yes Status: Chronic Code(s): Z82.49 - FAMILY HX OF [place]HE[place] HEART DIS AND OTH DIS OF THE CIRC SYS SNOMED Code(s): 629520059 (6) Hyperlipidemia Current Visit: Yes Status: Chronic Code(s): E78.5 - HYPERLIPIDEMIA, UNSPECIFIED SNOMED Code(s): 59232572 (7) Left main coronary artery disease Current Visit: Yes Status: Chronic Code(s): I25.10 - ATHSCL HEART DISEASE OF [place] CORONARY ARTERY W/O ANG PCTRS SNOMED Code(s): 606506763 (8) Medical non-compliance Current Visit: Yes Status: Chronic Code(s): Z91.19 - PATIENT'S NONCOMPLIANCE W OTH MEDICAL TREATMENT AND REGIMEN SNOMED Code(s): 406257995 (9) On home O2 Current Visit: Yes Status: Chronic Code(s): Z99.81 - DEPENDENCE ON SUPPLEMENTAL OXYGEN SNOMED Code(s): 220296797756 (10) Peripheral artery disease Current Visit: Yes Status: Chronic Code(s): I73.9 - PERIPHERAL VASCULAR DISEASE, UNSPECIFIED SNOMED Code(s): 461767571 (11) Severe mitral regurgitation Current Visit: Yes Status: Chronic Code(s): I34.0 - NONRHEUMATIC MITRAL ( VALVE) INSUFFICIENCY SNOMED Code(s): 85020920 (12) History of breast cancer Current Visit: No Status: Resolved Code(s): Z85.3 - PERSONAL HISTORY OF MALIGNANT NEOPLASM OF BREAST SNOMED Code(s): 900479386 (13) History of chemotherapy Current Visit: No Status: Resolved Code(s): Z92.21 - PERSONAL HISTORY OF ANTINEOPLASTIC CHEMOTHERAPY SNOMED Code(s): 048376626056475 (14) History of right mastectomy Current Visit: No Status: Resolved Code(s): Z90.11 - ACQUIRED ABSENCE OF RIGHT BREAST AND NIPPLE SNOMED Code(s): 420725646 (15) Hypothyroid Current Visit: No Status: Resolved Code(s): E03.9 - HYPOTHYROIDISM, UNSPECIFIED SNOMED Code(s): 90536877 (16) Previous myocardial infarction older than 8 weeks Current Visit: No Status: Resolved Code(s): I25.2 - OLD MYOCARDIAL INFARCTION SNOMED Code(s): 9309325 (17) Tobacco dependence in remission Current Visit: No Status: Resolved Code(s): F17.201 - NICOTINE DEPENDENCE, UNSPECIFIED, IN REMISSION SNOMED Code(s): 174169090 Plan: 1. Continue aspirin, statin, Plavix, AMANDA inhibitor and beta gregg. Will increase her beta gregg therapy as tolerated. 2. Wean O2 as tolerated. Encourage incentive spirometry 10 times every hour while awake. 3. Bronchodilators, inhaled steroids per pulmonology management. 4. Lasix 20 mg IV 1 today. We will start Lasix 40 mg by mouth daily starting 07/16/2018. 5. Increase activity, ambulate as tolerated. PT/OT/cardiac rehab following. 6. Discontinue Marshall catheter. 7. Will monitor daily labs and x-rays. Electrolyte replacement per protocol. 8. Pain control with current medication regimen. 9. Insulin management per primary care service. 10. GI prophylaxis with Protonix, DVT prophylaxis with subcu heparin, SCDs. 11. Encourage continued smoking cessation. 12. Continue Amiodarone 400 mg by mouth twice a day for atrial fibrillation prophylaxis. Decrease amiodarone to 200 mg twice a day starting on 07/18/2018. 13. Anticipate need for inpatient rehab upon discharge. 14. Transferred to [address] [place] [address] cardiac stepdown unit when bed available. 15. More recommendations to follow based on patient's clinical course. Time with Patient: Greater than 30
--- NOTE | 2018-07-15 13:52 | P.PN ---
Subjective Progress Note Date: 07/15/18 Principal diagnosis: Patient is a 73-year-old female with a past medical history of COPD, multivessel coronary artery disease and severe mitral regurg, breast cancer, hypothyroidism, prediabetes and vitamin D deficiency who presented for elective cardiac bypass surgery. On 07/07 she underwent [address] Marks. She underwent LIU to the LAD, SVG to the first and second obtuse marginal as well as the RCA. She had mitral valve annuloplasty and ligation of the left atrial appendage. Intraoperatively she received 2 units of packed red blood cells, 1 unit of FFP, and 1 unit of platelets. She subsequently was admitted to the ICU. Extubated on 07/07. Has been progressing well. Overnight on 07/09 she became hypoxic and required a nonrebreather is secondary to atelectasis and pleural effusions she was diuresed and maintain on breathing treatments . She was transitioned on Arvo high flow on 07/10 and has been weane down to 3 L nasal cannula m Then overnight on 07/10 she developedA. fib with RVR needing an Amiodarone drip which was transitioned to oral. She also developed urinary retention requiring reinsertion of the Marshall catheter. She Has been slowly progressing Patient reporting fatigue with sitting up comfortably at bedside she is coughing nonproductive, reports that her breathing is much improved , sister at bedside reporting left fourth digit On the lower extremity appears to be improving. Objective - Vital Signs Vital signs: Vital Signs Temp 97.5 F L 07/15/18 08:00 Pulse 84 07/15/18 08:51 Resp 23 07/15/18 08:00 BP 121/51 07/15/18 08:00 Pulse Ox 94 L 07/15/18 08:00 Intake & Output 07/14/18 07/15/18 07/15/18 18:59 06:59 18:59 Intake Total 860 225 360 Output Total 1200 1200 220 Balance -340 -975 140 Weight 73.8 kg Intake: Oral 860 225 360 Output: Urine 1200 1200 220 Other: Voiding Method Indwelling Catheter Indwelling Catheter Indwelling Catheter ABP, PAP, CO, CI - Last Documented Arterial Blood Pressure 122/44 Pulmonary Artery Pressure 44/24 Cardiac Output 4.1 Cardiac Index 2.4 - Exam General: Non toxic, no distress, appears at stated age Derm: Right fourth toe with ischemic discoloration and chronic necrotic ulcer- no purulent drainage noted, no warmth, no swelling of the toe. warm, dry Head: atraumatic, normocephalic, symmetric Eyes: EOMI, no lid lag, anicteric sclera Mouth: no lip lesion, mucus membranes dry Cardiovascular: S1S2 with murmur, positive posterior tibial pulse bilateral, Lungs: Decreased breath sounds bilaterally, diminished in the bases with noted right-sided basilar crackles Abdominal: soft, nontender to palpation, no guarding, no appreciable organomegaly Ext: no gross muscle atrophy, Trace edema right foot, no contractures Neuro: CN II-XI grossly intact, no focal neuro deficits Psych: Alert, oriented, appropriate affect - Labs CBC & Chem 7: 07/15/18 04:33 07/15/18 04:33 Labs: Abnormal Lab Results - Last 24 Hours (Table) 07/14/18 07/14/18 07/15/18 Range/Units 17:13 21:39 04:33 RBC 2.42 L (3.80-5.40) m/uL Hgb 7.8 L (11.4-16.0) gm/dL Hct 25.1 L (34.0-46.0) % MCV 103.5 H (80.0-100.0) fL RDW 16.3 H (11.5-15.5) % BUN (7-17) mg/dL Creatinine (0.52-1.04) mg/dL Glucose (74-99) mg/dL POC Glucose (mg/dL) 175 H 162 H (75-99) mg/dL Calcium (8.4-10.2) mg/dL Total Protein (6.3-8.2) g/dL Albumin (3.5-5.0) g/dL 07/15/18 07/15/18 Range/Units 04:33 07:06 RBC (3.80-5.40) m/uL Hgb (11.4-16.0) gm/dL Hct (34.0-46.0) % MCV (80.0-100.0) fL RDW (11.5-15.5) % BUN 26 H (7-17) mg/dL Creatinine 1.05 H (0.52-1.04) mg/dL Glucose 106 H (74-99) mg/dL POC Glucose (mg/dL) 111 H (75-99) mg/dL Calcium 8.0 L (8.4-10.2) mg/dL Total Protein 5.3 L (6.3-8.2) g/dL Albumin 2.8 L (3.5-5.0) g/dL Microbiology - Last 24 Hours (Table) 07/11/18 19:30 Gram Stain - Final Sputum Sputum Culture - Final Assessment and Plan Plan: Patient is a 73 yo CF here with 5 vessel CABG and MV annuloplasty acute on chronic hypoxic respiratory failure * Secondary to fluid overload pleural effusion now resolved patient back on baseline O2 2 L * Chest x-ray today showing pulmonary vascular congestion * Patient received extra Lasix today and is initiated on daily diuretic with Lasix starting tomorrow we'll continue to monitor Constipation - continue bowel regiment - add mag citrate vs suppository in AM if no BM Urinary retention * Marshall removed we'll monitor for voiding * Prediabetes - A1C 5.9 06/24, down from 6.3 - SSI, follow BS closely Right 4 toe chronic ulcer due to peripheral arterial disease - no signs of infection - continue monitoring - outpatient follow-up A fib -Amiodarone Acute blood loss anemia and thrombocytopenia , anticipated outcome of surgery - s/p 1 additional unit on 07/10. - stable - Oral supplementation X 30 days CAD and mitral regurg s/p CABG and mitral valve annuloplasty - management per primary team COPD without exacerbation - Pulm recs - Bronchodilators - pulmonary hygiene Hypothyroidism - Not currently on medications at home. - TSH 1.47 in Jun 2018 Elevated liver enzymes, mild, resolved right basilar airspace disease, likely atalectasis, resolved Leukocytosis, resolved -Afebrile Chronic Vit D Deficiency Scoliosis Carotid arterial disease Disposition: Anticipated discharge tomorrow
--- NOTE | 2018-07-15 15:58 | P.PN ---
Subjective Progress Note Date: 07/15/18 This is a 73-year-old female with known history of COPD who was found to have multivessel coronary artery disease and severe mitral regurgitation. Patient underwent multivessel myocardial revascularization with 5 vessel bypass surgery , with LIU to the LAD, saphenous vein graft to the first and second obtuse marginal as well as the RCA. She also had a mitral valve annuloplasty and ligation of left atrial appendage. The patient was seen and examined in the intensive care unit, sitting up in her chair at bedside. On 2 L of oxygen, satting 94%. She is remaining in a normal sinus rhythm. Today's labs have been reviewed, white blood cell count 9.7, hemoglobin 7.8, electrolytes within normal limits. Creatinine 1.05. Sputum culture showed no growth. Lungs sounds are positive for some minimal crackles at the bases. Objective - Vital Signs Vital signs: Vital Signs Temp 98.0 F 07/15/18 14:00 Pulse 84 07/15/18 14:00 Resp 17 07/15/18 14:00 BP 104/63 07/15/18 14:00 Pulse Ox 95 07/15/18 14:00 Intake & Output 07/14/18 07/15/18 07/15/18 18:59 06:59 18:59 Intake Total 860 225 860 Output Total 1200 1200 1170 Balance -340 -975 -310 Weight 73.8 kg Intake: Oral 860 225 860 Output: Urine 1200 1200 1170 Other: Voiding Method Indwelling Catheter Indwelling Catheter Indwelling Catheter ABP, PAP, CO, CI - Last Documented Arterial Blood Pressure 122/44 Pulmonary Artery Pressure 44/24 Cardiac Output 4.1 Cardiac Index 2.4 - Exam Physical Exam: Revealed a 73-year-old female in no distress, on 3 L nasal cannula. Head: Atraumatic, normocephalic. HEENT:[Neck is supple.] [No neck masses.] [No thyromegaly.] [No JVD.] PERRLA, EOMI, no icterus. Chest: [Slightly diminished breath sounds at the left base, limited bibasilar crackles Cardiac Exam: [Normal S1 and S2, no S3 gallop, no murmur.] Abdomen: [Soft, nontender, no megaly, no rebound, no guarding, normal bowel sounds.] Extremities: [No clubbing, no edema, no cyanosis.] Neurological Exam: [No focal neurologic deficit.] Skin: No rashes. Psychiatric: Normal mood affect and mental status examination. - Labs CBC & Chem 7: 07/15/18 04:33 07/15/18 04:33 Labs: Abnormal Lab Results - Last 24 Hours (Table) 07/14/18 07/14/18 07/15/18 Range/Units 17:13 21:39 04:33 RBC 2.42 L (3.80-5.40) m/uL Hgb 7.8 L (11.4-16.0) gm/dL Hct 25.1 L (34.0-46.0) % MCV 103.5 H (80.0-100.0) fL RDW 16.3 H (11.5-15.5) % BUN (7-17) mg/dL Creatinine (0.52-1.04) mg/dL Glucose (74-99) mg/dL POC Glucose (mg/dL) 175 H 162 H (75-99) mg/dL Calcium (8.4-10.2) mg/dL Total Protein (6.3-8.2) g/dL Albumin (3.5-5.0) g/dL 07/15/18 07/15/18 07/15/18 Range/Units 04:33 07:06 11:56 RBC (3.80-5.40) m/uL Hgb (11.4-16.0) gm/dL Hct (34.0-46.0) % MCV (80.0-100.0) fL RDW (11.5-15.5) % BUN 26 H (7-17) mg/dL Creatinine 1.05 H (0.52-1.04) mg/dL Glucose 106 H (74-99) mg/dL POC Glucose (mg/dL) 111 H 145 H (75-99) mg/dL Calcium 8.0 L (8.4-10.2) mg/dL Total Protein 5.3 L (6.3-8.2) g/dL Albumin 2.8 L (3.5-5.0) g/dL Microbiology - Last 24 Hours (Table) 07/11/18 19:30 Gram Stain - Final Sputum Sputum Culture - Final Assessment and Plan Plan: Assessment and plan # 1 status post CABG, mitral valve annuloplasty, postoperative day #7 #2 bilateral pleural effusions and atelectasis, expected post surgery/CABG. slightly improved based on the chest x-ray from today. #3 gold stage II COPD, FEV1 63%. Remains on bronchodilators. #4 history of hypothyroidism #5 multiple comorbidities including prediabetes, carotid artery disease, scoliosis, vitamin D deficiency, and acute blood loss anemia, expected post surgery. #6 acute on chronic chronic systolic congestive heart failure #7 carotid artery disease #8 chronic hypoxic respiratory failure, on home O2 especially at night. 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 Plan From cardiology's perspective, we'll recommend to continue the patient on his current medications. DNP note has been reviewed, I agree with a documented findings and plan of care. Patient was seen and examined.
[2018-07-15 16:52] LABS: Glucose,Whole Blood 131 mg/dL (75-99)
[2018-07-15] MEDS: SENNOSIDES-DOCUSATE SODIUM 1 EACH TAB PO SCH (20:06)
[2018-07-15 20:53] LABS: Glucose,Whole Blood 139 mg/dL (75-99)
[2018-07-16] MEDS ORDERED: ACETAMINOPHEN TAB 325 MG TAB ONE (03:50)
[2018-07-16] MEDS: INSULIN ASPART 100 UNIT/ML 1 ML 10 ML VIAL SQ SCH ×2 (06:05→12:39)
[2018-07-16] MEDS: PANTOPRAZOLE 40 MG TABLET PO SCH (06:26)
[2018-07-16] MEDS: FERROUS SULFATE 325 MG TAB PO SCH (06:26)
[2018-07-16 06:28] LABS: Glucose,Whole Blood 126 mg/dL (75-99)
[2018-07-16 06:33] LABS: Anisocytosis Slight; Basophils % (A) 0 %; Eosinophils # (A) 0.4 k/uL (0-0.7); Eosinophils % (A) 4 %; HCT 25.4 % (34.0-46.0); Hypochromasia Moderate; Lymphocytes # (A) 2.1 k/uL (1.0-4.8); Lymphocytes % (A) 18 %; MCH 32.7 pg (25.0-35.0); MCHC 31.6 g/dL (31.0-37.0); MCV 103.3 fL (80.0-100.0); Macrocytosis Moderate; Mean Platelet Volume 7.6; Monocytes # (A) 0.7 k/uL (0-1.0); Monocytes % (A) 6 %; Neutrophils # (A) 8.4 k/uL (1.3-7.7); Neutrophils % (A) 71 %; Platelet Count 259 k/uL (150-450); RBC 2.46 m/uL (3.80-5.40); RDW 16.4 % (11.5-15.5); WBC 11.9 k/uL (3.8-10.6)
[2018-07-16 06:50] LABS: Albumin 2.8 g/dL (3.5-5.0); Calcium 8.4 mg/dL (8.4-10.2); Potassium 4.6 mmol/L (3.5-5.1); Total Bilirubin 0.7 mg/dL (0.2-1.3); Total Protein 5.3 g/dL (6.3-8.2)
--- NOTE | 2018-07-16 08:10 | XR ---
EXAMINATION TYPE: XR chest 1V portable DATE OF EXAM: 07/16/2018 CLINICAL HISTORY: Difficulty breathing progress study. Post open cardiac surgery with mitral valve r eplacement. TECHNIQUE: Single AP portable upright view of the chest is obtained. COMPARISON: Chest x-ray from one day earlier and older studies. FINDINGS: Overlying sternal wires and mediastinal clips as well as metallic mitral valvular ring are all redemonstrated. Cardiac silhouette size is stable and enlarged. There is chronic parenchymal wilson nge bilaterally with small to tiny bilateral pleural effusions or pleural thickening and associated l eft basilar atelectasis and/or infiltrate. Improved central vascular congestion is noted. Right axill kal surgical clips are redemonstrated. Osseous structures are demineralized. IMPRESSION: There is persistent cardiomegaly and chronic parenchymal change with small to tiny bilate ral pleural effusions and associated left basilar atelectasis and/or infiltrate all redemonstrated. I mproving central vascular congestion noted.
[2018-07-16] MEDS: AMIODARONE 200 MG TAB PO SCH (08:28)
[2018-07-16] MEDS: CLOPIDOGREL 75 MG TAB PO SCH (08:28)
[2018-07-16] MEDS: HEPARIN SODIUM,PORCINE 5,000 UNIT/ML 1 ML VIAL SQ SCH (08:28)
[2018-07-16] MEDS: METOPROLOL TARTRATE 12.5 MG TAB PO SCH (08:28)
[2018-07-16] MEDS: ACETAMINOPHEN TAB 325 MG TAB PO PRN (08:29)
[2018-07-16] MEDS: ASPIRIN 325 MG TAB PO SCH (08:29)
[2018-07-16] MEDS: guaiFENesin 600 MG TABLET.ER PO SCH (08:29)
[2018-07-16] MEDS: ATORVASTATIN 40 MG TAB PO SCH (08:30)
[2018-07-16] MEDS: GABAPENTIN 300 MG CAP PO SCH (08:30)
[2018-07-16] MEDS ORDERED: FUROSEMIDE 40 MG TAB PO SCH ×2 (09:00→11:30)
[2018-07-16] MEDS: IPRATROPIUM-ALBUTEROL 3 ML NEB INHALATION SCH ×3 (09:20→15:28)
[2018-07-16] MEDS: SYMBICORT 160-4.5 MCG INHALER INHALATION SCH (09:20)
--- NOTE | 2018-07-16 09:36 | P.PN ---
Subjective Progress Note Date: 07/16/18 Principal diagnosis: Patient is a 73-year-old female with a past medical history of COPD, multivessel coronary artery disease and severe mitral regurg, breast cancer, hypothyroidism, prediabetes and vitamin D deficiency who presented for elective cardiac bypass surgery. On 07/07 she underwent [address] Marks. She underwent LIU to the LAD, SVG to the first and second obtuse marginal as well as the RCA. She had mitral valve annuloplasty and ligation of the left atrial appendage. Intraoperatively she received 2 units of packed red blood cells, 1 unit of FFP, and 1 unit of platelets. She subsequently was admitted to the ICU. Extubated on 07/07. Has been progressing well. Overnight on 07/09 she became hypoxic and required a nonrebreather is secondary to atelectasis and pleural effusions she was diuresed and maintain on breathing treatments . She was transitioned on Arvo high flow on 07/10 and has been weane down to 3 L nasal cannula m Then overnight on 07/10 she developedA. fib with RVR needing an Amiodarone drip which was transitioned to oral. She also developed urinary retention requiring reinsertion of the Marshall catheter. She Has been slowly progressing Patient reporting fatigue with sitting up comfortably at bedside she is coughing nonproductive, reports that her breathing is much improved , sister at bedside reporting left fourth digit On the lower extremity appears to be improving. Patient had her Marshall discontinued yesterday and reports that she voided approximately 3 AM this morning without any significant issues. Objective - Vital Signs Vital signs: Vital Signs Temp 99.0 F 07/16/18 04:00 Pulse 76 07/16/18 09:20 Resp 19 07/16/18 04:00 BP 115/53 07/16/18 04:00 Pulse Ox 96 07/16/18 09:20 Intake & Output 07/15/18 07/16/18 07/16/18 18:59 06:59 18:59 Intake Total 860 500 Output Total 1370 0 Balance -510 500 Weight 73.8 kg 72.8 kg Intake: Oral 860 500 Output: Urine 1370 Stool 0 Other: Voiding Method Bedside Commode Bedside Commode # Voids 1 ABP, PAP, CO, CI - Last Documented Arterial Blood Pressure 122/44 Pulmonary Artery Pressure 44/24 Cardiac Output 4.1 Cardiac Index 2.4 - Exam General: Non toxic, no distress, appears at stated age Derm: Right fourth toe with ischemic discoloration and chronic necrotic ulcer- no purulent drainage noted, no warmth, no swelling of the toe. warm, dry Head: atraumatic, normocephalic, symmetric Eyes: EOMI, no lid lag, anicteric sclera Mouth: no lip lesion, mucus membranes dry Cardiovascular: S1S2 with murmur, positive posterior tibial pulse bilateral, Lungs: Clear to auscultation today no wheezes or rhonchi Abdominal: soft, nontender to palpation, no guarding, no appreciable organomegaly Ext: no gross muscle atrophy, Trace edema right foot, no contractures Neuro: CN II-XI grossly intact, no focal neuro deficits Psych: Alert, oriented, appropriate affect - Labs CBC & Chem 7: 07/16/18 06:04 07/16/18 06:04 Labs: Abnormal Lab Results - Last 24 Hours (Table) 07/15/18 07/15/18 07/15/18 Range/Units 11:56 16:49 20:50 WBC (3.8-10.6) k/uL RBC (3.80-5.40) m/uL Hgb (11.4-16.0) gm/dL Hct (34.0-46.0) % MCV (80.0-100.0) fL RDW (11.5-15.5) % Neutrophils # (1.3-7.7) k/uL BUN (7-17) mg/dL Creatinine (0.52-1.04) mg/dL Glucose (74-99) mg/dL POC Glucose (mg/dL) 145 H 131 H 139 H (75-99) mg/dL Total Protein (6.3-8.2) g/dL Albumin (3.5-5.0) g/dL 07/16/18 07/16/18 07/16/18 Range/Units 05:58 06:04 06:04 WBC 11.9 H (3.8-10.6) k/uL RBC 2.46 L (3.80-5.40) m/uL Hgb 8.0 L (11.4-16.0) gm/dL Hct 25.4 L (34.0-46.0) % MCV 103.3 H (80.0-100.0) fL RDW 16.4 H (11.5-15.5) % Neutrophils # 8.4 H (1.3-7.7) k/uL BUN 24 H (7-17) mg/dL Creatinine 1.38 H (0.52-1.04) mg/dL Glucose 111 H (74-99) mg/dL POC Glucose (mg/dL) 126 H (75-99) mg/dL Total Protein 5.3 L (6.3-8.2) g/dL Albumin 2.8 L (3.5-5.0) g/dL Assessment and Plan Plan: Patient is a 73 yo CF here with 5 vessel CABG and MV annuloplasty acute on chronic hypoxic respiratory failure * Secondary to fluid overload pleural effusion now resolved patient back on baseline O2 2 L * Chest x-ray today showing improving pulmonary vascular congestion, small bilateral pleural effusions and left basilar atelectasis and/or infiltrate, patient afebrile no suggestion of infectious process at this time Constipation - continue bowel regiment -Resolved Urinary retention * Patient voided retention has resolved Prediabetes - A1C 5.9 06/24, down from 6.3 - SSI, follow BS closely Right 4 toe chronic ulcer due to peripheral arterial disease - no signs of infection - continue monitoring - outpatient follow-up A fib -Amiodarone Acute blood loss anemia and thrombocytopenia , anticipated outcome of surgery - s/p 1 additional unit on 07/10. - stable - Oral supplementation X 30 days CAD and mitral regurg s/p CABG and mitral valve annuloplasty - management per primary team COPD without exacerbation - Pulm recs - Bronchodilators - pulmonary hygiene Hypothyroidism - Not currently on medications at home. - TSH 1.47 in Jun 2018 Elevated liver enzymes, mild, resolved right basilar airspace disease, likely atalectasis, resolved Leukocytosis, resolved -Afebrile Chronic Vit D Deficiency Scoliosis Carotid arterial disease Disposition: Anticipated discharge today/tomorrow pending placement and insurance approval
[2018-07-16 10:42] VITALS: RESP 20
--- NOTE | 2018-07-16 11:09 | P.PN ---
Subjective Progress Note Date: 07/16/18 Principal diagnosis: Coronary artery disease with left main disease and mitral valve regurgitation, history of myocardial infarction, hyperlipidemia, chronic systolic heart failure with most recent ejection fraction of 45%, history of right breast cancer with mastectomy, status post chemo and radiation in 1997, hypothyroidism , previous tobacco dependence with [id number] history, COPD with preoperative FEV1 63% of predicted, home oxygen use on a when necessary basis at bedtime, peripheral artery disease with dry gangrene of the fourth toe on the right foot and bilateral ABIs of 0.51 to her left lower extremity and 0.52 to her right lower extremity, right carotid stenosis 50-79%, medical noncompliance, significant family history of coronary artery disease. POD #10 coronary artery bypass grafting 5 with sequential LIU to the diagonal coronary artery and left anterior descending coronary artery, a reverse greater saphenous vein grafts to first and second obtuse marginal and right coronary arteries. Mitral valve annuloplasty with a 24 mm physio-2 annuloplasty ring. Ligation of the left atrial appendage. Endovascular vein harvest of the greater saphenous vein from the right lower extremity from the ankle to the groin. Intraoperative transesophageal echocardiogram by anesthesia. Postoperative acute blood loss anemia, an expected outcome given hemodilution and cardiopulmonary bypass pump. Postoperative paroxysmal atrial fibrillation, an unexpected but potential outcome of surgery. Postoperative urinary retention requiring placement of Marshall catheter. The patient is currently sitting up to the bedside chair. She is in no acute distress. She denies any complaints of pain or shortness of breath at this time. Remote telemetry showing normal sinus rhythm heart rate 86. Oxygen saturations are 94% on 2 L nasal cannula. Her labs this morning demonstrated a WBC count 11.9, hemoglobin 8.0, platelets 259, BUN 24, creatinine 1.38. She remains afebrile. Her strength is improving daily, she was 1 assist to the bedside chair this morning. Her sister is at her bedside, their questions were answered to the best of my ability. Pending discharge today to inpatient rehab versus subacute rehab. Objective - Vital Signs Vital signs: Vital Signs Temp 99.0 F 07/16/18 04:00 Pulse 96 07/16/18 04:00 Resp 19 07/16/18 04:00 BP 115/53 07/16/18 04:00 Pulse Ox 92 L 07/16/18 04:00 Intake & Output 07/15/18 07/16/18 07/16/18 18:59 06:59 18:59 Intake Total 860 500 Output Total 1370 0 Balance -510 500 Weight 73.8 kg 72.8 kg Intake: Oral 860 500 Output: Urine 1370 Stool 0 Other: Voiding Method Bedside Commode Bedside Commode # Voids 1 ABP, PAP, CO, CI - Last Documented Arterial Blood Pressure 122/44 Pulmonary Artery Pressure 44/24 Cardiac Output 4.1 Cardiac Index 2.4 - Constitutional General appearance: Present: cooperative, no acute distress, obese - Respiratory Details: Lung sounds essentially clear to her bilateral upper lobes, few scattered crackles to bilateral bases. Respirations are symmetrical and nonlabored. Oxygen saturation are 94% on 2 L nasal cannula. She is achieving 750 L to 1000 mL on her incentive spirometry. - Cardiovascular Details: Regular rhythm and rate. S1 and S2 present, negative for S3, gallop or murmur. Sternum is stable. Remote telemetry showing normal sinus rhythm heart rate 86. No edema present. Heart hugger is in place and she is demonstrating appropriate use. Knee-high ANGEL hose and sequential compression devices in place to bilateral lower extremities. - Gastrointestinal Gastrointestinal Comment(s): Abdomen is soft, nontender and nondistended. Active bowel sounds all 4 abdominal quadrants. No guarding or rigidity. Tolerating oral intake. Passing flatus. - Genitourinary Genitourinary Comment(s): Voiding clear yellow urine. - Integumentary Integumentary Comment(s): Skin is warm and dry. No clubbing or cyanosis present. Midline sternal incision is clean, dry and approximated. No drainage or redness is present. Gauze dressing is clean, dry and intact. Right lower extremity EVH site clean, dry and approximated. No drainage or redness present. - Neurologic Neurologic: Present: CNII-XII intact - Musculoskeletal Musculoskeletal: Present: gait normal, generalized weakness, strength equal bilaterally - Psychiatric Psychiatric: Present: A&O x's 3, appropriate affect, intact judgment & insight - Allied health notes Allied health notes reviewed: nursing - Labs CBC & Chem 7: 07/16/18 06:04 07/16/18 06:04 Labs: Abnormal Lab Results - Last 24 Hours (Table) 07/15/18 07/15/18 07/15/18 Range/Units 11:56 16:49 20:50 WBC (3.8-10.6) k/uL RBC (3.80-5.40) m/uL Hgb (11.4-16.0) gm/dL Hct (34.0-46.0) % MCV (80.0-100.0) fL RDW (11.5-15.5) % Neutrophils # (1.3-7.7) k/uL BUN (7-17) mg/dL Creatinine (0.52-1.04) mg/dL Glucose (74-99) mg/dL POC Glucose (mg/dL) 145 H 131 H 139 H (75-99) mg/dL Total Protein (6.3-8.2) g/dL Albumin (3.5-5.0) g/dL 07/16/18 07/16/18 07/16/18 Range/Units 05:58 06:04 06:04 WBC 11.9 H (3.8-10.6) k/uL RBC 2.46 L (3.80-5.40) m/uL Hgb 8.0 L (11.4-16.0) gm/dL Hct 25.4 L (34.0-46.0) % MCV 103.3 H (80.0-100.0) fL RDW 16.4 H (11.5-15.5) % Neutrophils # 8.4 H (1.3-7.7) k/uL BUN 24 H (7-17) mg/dL Creatinine 1.38 H (0.52-1.04) mg/dL Glucose 111 H (74-99) mg/dL POC Glucose (mg/dL) 126 H (75-99) mg/dL Total Protein 5.3 L (6.3-8.2) g/dL Albumin 2.8 L (3.5-5.0) g/dL - Imaging and Cardiology Chest x-ray: image reviewed Assessment and Plan (1) CAD (coronary artery disease), [place] coronary artery Current Visit: Yes Status: Chronic Code(s): I25.10 - ATHSCL HEART DISEASE OF [place] CORONARY ARTERY W/O ANG PCTRS SNOMED Code(s): 0042334709162 (2) COPD (chronic obstructive pulmonary disease) Current Visit: Yes Status: Chronic Code(s): J44.9 - CHRONIC OBSTRUCTIVE PULMONARY DISEASE, UNSPECIFIED SNOMED Code(s): 17466319 (3) Carotid arterial disease Current Visit: Yes Status: Chronic Code(s): I77.9 - DISORDER OF ARTERIES AND ARTERIOLES, UNSPECIFIED SNOMED Code(s): 380304679 (4) Chronic systolic heart failure Current Visit: Yes Status: Chronic Code(s): I50.22 - CHRONIC SYSTOLIC ( CONGESTIVE) HEART FAILURE SNOMED Code(s): 136331107 (5) Family history of heart disease Current Visit: Yes Status: Chronic Code(s): Z82.49 - FAMILY HX OF ISCHEM HEART DIS AND OTH DIS OF THE CIRC SYS SNOMED Code(s): 498499126 (6) Hyperlipidemia Current Visit: Yes Status: Chronic Code(s): E78.5 - HYPERLIPIDEMIA, UNSPECIFIED SNOMED Code(s): 17625030 (7) Left main coronary artery disease Current Visit: Yes Status: Chronic Code(s): I25.10 - ATHSCL HEART DISEASE OF [place] CORONARY ARTERY W/O ANG PCTRS SNOMED Code(s): 598451916 (8) Medical non-compliance Current Visit: Yes Status: Chronic Code(s): Z91.19 - PATIENT'S NONCOMPLIANCE W OTH MEDICAL TREATMENT AND REGIMEN SNOMED Code(s): 364153631 (9) On home O2 Current Visit: Yes Status: Chronic Code(s): Z99.81 - DEPENDENCE ON SUPPLEMENTAL OXYGEN SNOMED Code(s): 241858934897 (10) Peripheral artery disease Current Visit: Yes Status: Chronic Code(s): I73.9 - PERIPHERAL VASCULAR DISEASE, UNSPECIFIED SNOMED Code(s): 823397540 (11) Severe mitral regurgitation Current Visit: Yes Status: Chronic Code(s): I34.0 - NONRHEUMATIC MITRAL ( VALVE) INSUFFICIENCY SNOMED Code(s): 35434811 (12) History of breast cancer Current Visit: No Status: Resolved Code(s): Z85.3 - PERSONAL HISTORY OF MALIGNANT NEOPLASM OF BREAST SNOMED Code(s): 021604186 (13) History of chemotherapy Current Visit: No Status: Resolved Code(s): Z92.21 - PERSONAL HISTORY OF ANTINEOPLASTIC CHEMOTHERAPY SNOMED Code(s): 881240554821952 (14) History of right mastectomy Current Visit: No Status: Resolved Code(s): Z90.11 - ACQUIRED ABSENCE OF RIGHT BREAST AND NIPPLE SNOMED Code(s): 137884886 (15) Hypothyroid Current Visit: No Status: Resolved Code(s): E03.9 - HYPOTHYROIDISM, UNSPECIFIED SNOMED Code(s): 41573797 (16) Previous myocardial infarction older than 8 weeks Current Visit: No Status: Resolved Code(s): I25.2 - OLD MYOCARDIAL INFARCTION SNOMED Code(s): 2947160 (17) Tobacco dependence in remission Current Visit: No Status: Resolved Code(s): F17.201 - NICOTINE DEPENDENCE, UNSPECIFIED, IN REMISSION SNOMED Code(s): 249988238 Plan: 1. Continue aspirin, statin, Plavix, AMANDA inhibitor and beta gregg. Will increase her beta gregg therapy as tolerated. 2. Wean O2 as tolerated. Encourage incentive spirometry 10 times every hour while awake. 3. Bronchodilators, inhaled steroids per pulmonology management. 4. Continue lasix orally, 40 mg daily 5. Increase activity, ambulate as tolerated. PT/OT/cardiac rehab following. 6. Pain control with current medication regimen. 7. Will monitor daily labs and x-rays. Electrolyte replacement per protocol. 8. Insulin management per primary care service. 9. GI prophylaxis with Protonix, DVT prophylaxis with subcu heparin, SCDs. 10. Continue Amiodarone 400 mg by mouth twice a day for atrial fibrillation prophylaxis. Decrease amiodarone to 200 mg twice a day starting on 07/18/2018. 11. Encourage continued smoking cessation. 12. Anticipate discharge today to inpatient rehab or subacute rehab. 13. More recommendations to follow based on patient's clinical course. Time with Patient: Greater than 30
[2018-07-16 11:33] LABS: Glucose,Whole Blood 121 mg/dL (75-99)
[2018-07-16] MEDS: ASCORBIC ACID 500 MG TAB PO SCH (12:39)
[2018-07-16] MEDS: MULTIVITAMINS, THERA 1 EACH TAB PO SCH (12:39)
[2018-07-16] MEDS: CHOLECALCIFEROL 1,000 UNIT TAB PO SCH (12:39)
[2018-07-16 12:55] VITALS: BP 95/46; PULSE 60; TEMP 97.1
--- NOTE | 2018-07-16 13:45 | P.DS ---
Providers Date of admission: 07/07/18 05:31 Expected date of discharge: 07/16/18 Attending physician: Nathaniel Marks Consults: 07/14/18 07:14 Consult Physician Routine Consulting Provider: Jassi Abarca Consult Reason/Comments: Evaluation for inpatient rehab placement Do you want consulting provider notified?: Yes 07/07/18 14:45 Consult Physician Routine Consulting Provider: Alessio Perez Consult Reason/Comments: Retail Seasonal Specialist Consult: post cardiac surgery Do you want consulting provider notified?: Yes Consult Physician Routine Consulting Provider: Ita Mojica Consult Reason/Comments: medical management Do you want consulting provider notified?: Yes Consult Physician Routine Consulting Provider: Cele Bass Consult Reason/Comments: Dobby Looms Pegger Consult: post cardiac surgery Do you want consulting provider notified?: Yes Primary care physician: Alessio Perez - Discharge Diagnosis(es) (1) CAD (coronary artery disease), [place] coronary artery Current Visit: Yes Status: Chronic (2) COPD (chronic obstructive pulmonary disease) Current Visit: Yes Status: Chronic (3) Carotid arterial disease Current Visit: Yes Status: Chronic (4) Medical non-compliance Current Visit: Yes Status: Chronic (5) Severe mitral regurgitation Current Visit: Yes Status: Chronic (6) Family history of heart disease Current Visit: Yes Status: Chronic (7) Hypothyroid Current Visit: No Status: Resolved (8) Left main coronary artery disease Current Visit: Yes Status: Chronic (9) Hyperlipidemia Current Visit: Yes Status: Chronic (10) Chronic systolic heart failure Current Visit: Yes Status: Chronic (11) Previous myocardial infarction older than 8 weeks Current Visit: No Status: Resolved (12) Peripheral artery disease Current Visit: Yes Status: Chronic (13) On home O2 Current Visit: Yes Status: Chronic (14) History of breast cancer Current Visit: No Status: Resolved (15) History of chemotherapy Current Visit: No Status: Resolved (16) History of right mastectomy Current Visit: No Status: Resolved (17) Tobacco dependence in remission Current Visit: No Status: Resolved Hospital Course: FINAL DIAGNOSIS: 1. Coronary artery disease with left main disease 2. Mitral valve regurgitation 3. Previous myocardial infarction 4. Hyperlipidemia 5. Chronic systolic heart failure with most recent ejection fraction 45% 6. History of right breast cancer with mastectomy, status post chemo and radiation in 1997 7. Hypothyroidism 8. Previous tobacco dependence 9. COPD with preoperative FEV1 63% of predicted 10. Home oxygen use on an as-needed basis 11. Peripheral artery disease with dry gangrene of the fourth toe on the right foot 12. Right carotid stenosis 50-79% 13. Medical noncompliance 14. Significant family history of coronary artery disease 15. Postoperative acute blood loss anemia, expected outcome 16. Postoperative paroxysmal atrial fibrillation, unexpected outcome 17. Postoperative urinary retention, unexpected PRINCIPAL PROCEDURE: 1. Coronary artery bypass grafting 5 with sequential LIU to the diagonal coronary artery and left anterior descending coronary artery, reverse greater saphenous vein graft to the first and second obtuse marginal and right coronary arteries 2. Mitral valve annuloplasty with a 25 mm physio-2 annuloplasty ring 3. Ligation of the left atrial appendage 4. Endovascular vein harvest of the right greater saphenous vein from the ankle to the groin 5. Intraoperative transesophageal echocardiogram by anesthesia HISTORY OF PRESENT ILLNESS: This is a 73-year-old patient who we initially saw back in October 2017. At that time she had not followed with any physician in greater than 10 years. She presented to the emergency room with complaints of constipation, however she did admit to having an episode of chest pain with elevation in her troponins, she was ruled in for a non-STEMI and was admitted for cardiac workup. She underwent heart catheterization demonstrating left main stenosis 60-70%, 30% RCA stenosis, 20% circumflex stenosis, and 80% proximal LAD stenosis. Transesophageal echocardiogram at that time demonstrated severely impaired systolic function with an ejection fraction 20-25 %, moderate mitral regurgitation, and mild tricuspid regurgitation. The patient was referred to Dr. Marks from cardiothoracic surgery. At that time she was in significant heart failure and the impression was that she would not tolerate surgery, the recommendation was for medical management with close follow-up. She was seen again in December at which time she was feeling better and recovering, however she was not sure if she wanted surgery or to continue with medical therapy. She continued to follow Dr. Bass in the office with repeat echocardiograms. She returned for follow-up at the end of February 2018 at which time her functional status had improved and she felt nearly asymptomatic. She was recommended to undergo coronary artery bypass graft surgery along with mitral valve repair. The usual perioperative course was discussed in detail with the patient and her family, all risks and benefits were explained, all questions were answered, and consent was obtained to proceed with surgery. The patient eventually obtained dental clearance and had a repeat transesophageal echocardiogram demonstrating ejection fraction 45%, calcified mitral valve with moderate central mitral regurgitation, and mild tricuspid regurgitation. She returned to our office and surgery was scheduled. HOSPITAL COURSE: The patient was brought to the hospital on 07/07/2018, taken to the preoperative area, prepared in the usual fashion, and subsequently taken to the operating room where Dr. Marks performed coronary artery bypass grafting 5 with sequential LIU to the diagonal coronary artery and left anterior descending coronary artery, reverse greater saphenous vein graft to the first and second obtuse marginal and right coronary arteries, mitral valve annuloplasty with a 25 mm physio-2 annuloplasty ring, ligation of the left atrial appendage, endovascular vein harvest of the right greater saphenous vein from the ankle to the groin, and intraoperative transesophageal echocardiogram by anesthesia. Upon completion of surgery the patient was transferred to the cardiovascular intensive care unit where she was recovered, monitored hemodynamically, and where she progressed to cardiac rehabilitation phase 1. She was extubated, all lines, tubes, and drips were discontinued when appropriate, and she was transferred to [address] [place] [address] cardiac stepdown unit for further monitoring and rehabilitation. She did experience postoperative blood loss anemia requiring transfusion, paroxysmal atrial fibrillation with conversion after amiodarone initiation, and urinary retention which resolved on its own. Her oxygen was titrated down, she continued to work with physical and occupational therapy, she was tolerating oral diet, her pain was controlled, and she was ready to be discharged to [facility] inpatient rehab on postoperative day #9. She received written and verbal instruction regarding her medications, activity restrictions, signs and symptoms requiring physician notification, and follow-up appointments. COMPLICATIONS: The patient experienced postoperative acute blood loss anemia, paroxysmal atrial fibrillation, and urinary retention, all of which were treated accordingly. Plan - Discharge Summary Discharge Rx Participant: No New Discharge Prescriptions: New Acetaminophen Tab [Tylenol] 650 mg PO Q4HR PRN tab PRN Reason: Fever and/ or Pain 6-10 Acetaminophen Tab [Tylenol] 325 mg PO Q4HR PRN tab PRN Reason: Fever and/ or Pain 1-5 Amiodarone [Cordarone] 400 mg PO BID tab Aspirin 325 mg PO DAILY tab Clopidogrel [Plavix] 75 mg PO DAILY tab Ferrous Sulfate [Iron (65 MG Elemental)] 325 mg PO BID-W/MEALS tab Furosemide [Lasix] 40 mg PO DAILY tab Ipratropium-Albuterol Nebulize [Duoneb 0.5 mg-3 mg/3 ml Soln] 3 ml INHALATION RT-QID ampul.neb Ipratropium-Albuterol Nebulize [Duoneb 0.5 mg-3 mg/3 ml Soln] 3 ml INHALATION RT-Q2H PRN ampul.neb PRN Reason: Shortness Of Breath Or Wheezin Lisinopril [Zestril] 2.5 mg PO DAILY@1200 tab Magnesium Hydroxide [Milk of Magnesia Concentrate] 2,400 mg PO BID PRN ml PRN Reason: Constipation Metoprolol Tartrate [Lopressor] 12.5 mg PO BID tab Pantoprazole [Protonix] 40 mg PO AC-BRKFST tablet.dr Syed-Docusate Sodium [Senokot-S] 2 each PO HS tab Continue Multivitamins, Thera [Multivitamin (formulary)] 1 tab PO DAILY Cholecalciferol [Vitamin D3] 1,000 unit PO DAILY Vitamin B Complex 1 cap PO DAILY Ascorbic Acid [Vitamin C] 1,000 mg PO DAILY Atorvastatin [Lipitor] 40 mg PO DAILY #30 tab Budesonide-Formot 160-4.5 Mcg [Symbicort 160-4.5 Mcg Inhaler] 2 puff INHALATION RT-BID #1 inhaler Gabapentin [Neurontin] 300 mg PO TID Discontinued Nitroglycerin Sl Tabs [Nitrostat] 0.4 mg SUBLINGUAL Q5M PRN #7 tab PRN Reason: Chest Pain Carvedilol [Coreg] 12.5 mg PO BID-W/MEALS Albuterol Inhaler [Ventolin Hfa Inhaler] 1 - 2 puff INHALATION RT-Q6H PRN PRN Reason: Shortness Of Breath Or Wheezing Furosemide [Lasix] 20 mg PO DAILY hydrALAZINE HCL 25 mg PO BID-W/MEALS Aspirin 81 mg PO HS Acetaminophen [Tylenol Extra Strength] 500 mg PO DAILY PRN PRN Reason: Pain Levofloxacin [Levaquin] 500 mg PO DAILY Benzonatate [Benzonatate Perle] 100 mg PO TID Mupirocin 2% Oint [Bactroban 2% Oint] 1 applic NASAL BID Discharge Medication List Ascorbic Acid [Vitamin C] 1,000 mg PO DAILY 10/23/17 [History] Cholecalciferol [Vitamin D3] 1,000 unit PO DAILY 10/23/17 [History] Multivitamins, Thera [Multivitamin (formulary)] 1 tab PO DAILY 10/23/17 [History ] Vitamin B Complex 1 cap PO DAILY 10/23/17 [History] Atorvastatin [Lipitor] 40 mg PO DAILY #30 tab 10/29/17 [Rx] Budesonide-Formot 160-4.5 Mcg [Symbicort 160-4.5 Mcg Inhaler] 2 puff INHALATION RT-BID #1 inhaler 10/29/17 [Rx] Gabapentin [Neurontin] 300 mg PO TID 06/16/18 [History] Acetaminophen Tab [Tylenol] 325 mg PO Q4HR PRN tab 07/16/18 [Rx] Acetaminophen Tab [Tylenol] 650 mg PO Q4HR PRN tab 07/16/18 [Rx] Amiodarone [Cordarone] 400 mg PO BID tab 07/16/18 [Rx] Aspirin 325 mg PO DAILY tab 07/16/18 [Rx] Clopidogrel [Plavix] 75 mg PO DAILY tab 07/16/18 [Rx] Ferrous Sulfate [Iron (65 MG Elemental)] 325 mg PO BID-W/MEALS tab 07/16/18 [Rx ] Furosemide [Lasix] 40 mg PO DAILY tab 07/16/18 [Rx] Ipratropium-Albuterol Nebulize [Duoneb 0.5 mg-3 mg/3 ml Soln] 3 ml INHALATION RT -Q2H PRN ampul.neb 07/16/18 [Rx] Ipratropium-Albuterol Nebulize [Duoneb 0.5 mg-3 mg/3 ml Soln] 3 ml INHALATION RT -QID ampul.neb 07/16/18 [Rx] Lisinopril [Zestril] 2.5 mg PO DAILY@1200 tab 07/16/18 [Rx] Magnesium Hydroxide [Milk of Magnesia Concentrate] 2,400 mg PO BID PRN ml 07/16 [Rx] Metoprolol Tartrate [Lopressor] 12.5 mg PO BID tab 07/16/18 [Rx] Pantoprazole [Protonix] 40 mg PO AC-BRKFST tablet. 07/16/18 [Rx] Sennosides-Docusate Sodium [Senokot-S] 2 each PO HS tab 07/16/18 [Rx] Follow up Appointment(s)/Referral(s): Cele Bass MD [STAFF PHYSICIAN] - 07/21/18 9:45 am Nathaniel Marks MD [STAFF PHYSICIAN] - 08/14/18 1:00 pm [facility], [NON-STAFF] - Sarah Motley NPC [REFERRING] - 2 Weeks (Please make an appointment when discharging from rehab) Alessio Perez MD [Primary Care Provider] - 08/01/18 9:45 am Activity/Diet/Wound Care/Special Instructions: DISCHARGE INSTRUCTIONS: 1. No driving for 4 weeks, or until physician gives their ok. 2. The patient should sleep in their own bed, no medical bed needed. 3. Stairs are not an issue. If the bedroom is upstairs, it is advised that the patient go up at night and down in the morning for the first week. Go slowly, using handrail and take 1 step at a time. 4. ANGEL hose are to be worn for 30 days or until physician discontinues. 5. Heart hugger is to be worn 100% of the time until physician discontinues.( except when showering) 6. No lifting, pushing, or pulling more than 10 pounds for 12 weeks. The physician will advise of any restriction changes. 7. The patient is expected to continue the prescribed walking program. 8. Continue pain control per as needed orders. 9. Continue with incentive spirometry and splinting/heart hugger until otherwise directed by the physician. 10. Must shower daily using liquid antibacterial soap and a separate white washcloth for each individual incision. 11. Routine sternal incision care. No powders, lotions, ointments on incisions. 12. Please call surgeon/GEOGRAPHIC INFORMATION SYSTEM ANALYST for temp greater than 101 F or purulent drainage from incisions. 13. All prescriptions given by surgeon for 30 days. Refills need to be filled through felling machine operator/primary care physician. 14. A Red armband has been placed on the patient. It should be worn for 30 days post surgery and will be removed by the cardiac surgeons. If an ER visit is necessary, please make sure the number on the Red armband is called. REHAB/HOME HEALTH SERVICES TO PROVIDE: RN SKILLED HOME CARE SERVICES FOR POST-OP SURGICAL PATIENTS WITH THE FOLLOWING: Coronary Artery Bypass Surgery (CABG), Mitral Valve Replacement/ Repair ( MVR), Aortic Valve Replacement/Repair (AVR) RN TO CONTINUE EDUCATION FROM ``ROAD TO A HEALTH HEART PATIENT EDUCATION MANUAL (GIVEN TO PATIENT IN THE HOSPITAL) MEDICATION RECONCILIATION WITH EDUCATION NEEDED ON FIRST HOME VISIT EMPHASIZE IMPORTANCE OF WEARING BREAST SUPPORT/HEART HUGGER ENCOURAGE USE OF INCENTIVE SPIROMETER 10 X EVERY HOUR WHILE AWAKE ENCOURAGE UTILIZATION OF LOWER EXTREMITY COMPRESSION STOCKINGS/ANGEL HOSE and ELEVATE LEGS ABOVE LEVEL OF HEART WHILE AT REST. ENCOURAGE AMBULATION 3-5x/day INCREASING TOLERATES, WHILE AVOID EXTREMES IN TEMPERATURE FREQUENCY: RN TO OPEN THE PATIENT WITHIN 24 HOURS OF DISCHARGE FROM REHAB WITH TELEHEALTH INSTALLED AT [facility], RN TO VISIT 2-3 X A WEEK FOR 4 WEEKS ESTABLISHED BY PATIENT NEEDS. LABORATORY: CBC, CMP TO BE DRAWN ON THE THIRD DAY HOME, (RAN STAT) FAX RESULTS TO [phone]. TELEHEALTH PARAMETERS: WEIGHT: NOTIFY MD OF WEIGHT GAIN OF 2 LBS IN 24 HOURS OR 5 LBS IN ONE WEEK HR: NOTIFY MD OF HR <55 BPM OR HR>100 BPM BP: NOTIFY MD IF BP <90/55 OR BP>140/100 O2 SAT: NOTIFY MD IF PO2<93% ON ROOM AIR SEND TELEHEALTH REPORT TO GAMBLING MONITOR AND CARDIOVASCULAR SURGEON THE FIRST WEEK OF CARE AND THEN BI-WEEKLY. PLEASE ADDITIONALLY COMMUNICATE ANY ABNORMALS AND NEW FINDINGS TO THE SURGEONS OFFICE.
--- NOTE | 2018-07-16 14:40 | P.PN ---
Subjective Progress Note Date: 07/16/18 This is a 73-year-old female with known history of COPD who was found to have multivessel coronary artery disease and severe mitral regurgitation. Patient underwent multivessel myocardial revascularization with 5 vessel bypass surgery , with LIU to the LAD, saphenous vein graft to the first and second obtuse marginal as well as the RCA. She also had a mitral valve annuloplasty and ligation of left atrial appendage. The patient was seen and examined in the intensive care unit, sitting up in her chair at bedside. On 2 L of oxygen, satting 94%. She is remaining in a normal sinus rhythm. Today's labs have been reviewed, white blood cell count 9.7, hemoglobin 7.8, electrolytes within normal limits. Creatinine 1.05. Sputum culture showed no growth. Lungs sounds are positive for some minimal crackles at the bases. 07/16/2018 Patient seen and examined this morning, sitting up in the chair overall doing well. Anticipating transferred to rehab today. Hemodynamically stable. Objective - Vital Signs Vital signs: Vital Signs Temp 97.1 F L 07/16/18 12:00 Pulse 82 07/16/18 12:10 Resp 20 07/16/18 12:00 BP 95/46 07/16/18 12:00 Pulse Ox 93 L 07/16/18 12:00 Intake & Output 07/15/18 07/16/18 07/16/18 18:59 06:59 18:59 Intake Total 860 500 720 Output Total 1370 0 Balance -510 500 720 Weight 73.8 kg 72.8 kg Intake: Oral 860 500 720 Output: Urine 1370 Stool 0 Other: Voiding Method Bedside Commode Bedside Commode # Voids 1 2 ABP, PAP, CO, CI - Last Documented Arterial Blood Pressure 122/44 Pulmonary Artery Pressure 44/24 Cardiac Output 4.1 Cardiac Index 2.4 - Exam Physical Exam: Revealed a 73-year-old female in no distress, on 3 L nasal cannula. Head: Atraumatic, normocephalic. HEENT:[Neck is supple.] [No neck masses.] [No thyromegaly.] [No JVD.] PERRLA, EOMI, no icterus. Chest: [Slightly diminished breath sounds at the left base, limited bibasilar crackles Cardiac Exam: [Normal S1 and S2, no S3 gallop, no murmur.] Abdomen: [Soft, nontender, no megaly, no rebound, no guarding, normal bowel sounds.] Extremities: [No clubbing, no edema, no cyanosis.] Neurological Exam: [No focal neurologic deficit.] Skin: No rashes. Psychiatric: Normal mood affect and mental status examination. - Labs CBC & Chem 7: 07/16/18 06:04 07/16/18 06:04 Labs: Abnormal Lab Results - Last 24 Hours (Table) 07/15/18 07/15/18 07/16/18 Range/Units 16:49 20:50 05:58 WBC (3.8-10.6) k/uL RBC (3.80-5.40) m/uL Hgb (11.4-16.0) gm/dL Hct (34.0-46.0) % MCV (80.0-100.0) fL RDW (11.5-15.5) % Neutrophils # (1.3-7.7) k/uL BUN (7-17) mg/dL Creatinine (0.52-1.04) mg/dL Glucose (74-99) mg/dL POC Glucose (mg/dL) 131 H 139 H 126 H (75-99) mg/dL Total Protein (6.3-8.2) g/dL Albumin (3.5-5.0) g/dL 07/16/18 07/16/18 07/16/18 Range/Units 06:04 06:04 11:25 WBC 11.9 H (3.8-10.6) k/uL RBC 2.46 L (3.80-5.40) m/uL Hgb 8.0 L (11.4-16.0) gm/dL Hct 25.4 L (34.0-46.0) % MCV 103.3 H (80.0-100.0) fL RDW 16.4 H (11.5-15.5) % Neutrophils # 8.4 H (1.3-7.7) k/uL BUN 24 H (7-17) mg/dL Creatinine 1.38 H (0.52-1.04) mg/dL Glucose 111 H (74-99) mg/dL POC Glucose (mg/dL) 121 H (75-99) mg/dL Total Protein 5.3 L (6.3-8.2) g/dL Albumin 2.8 L (3.5-5.0) g/dL Assessment and Plan Plan: Assessment and plan # 1 status post CABG, mitral valve annuloplasty, postoperative day #7 #2 bilateral pleural effusions and atelectasis, expected post surgery/CABG. slightly improved based on the chest x-ray from today. #3 gold stage II COPD, FEV1 63%. Remains on bronchodilators. #4 history of hypothyroidism #5 multiple comorbidities including prediabetes, carotid artery disease, scoliosis, vitamin D deficiency, and acute blood loss anemia, expected post surgery. #6 acute on chronic chronic systolic congestive heart failure #7 carotid artery disease #8 chronic hypoxic respiratory failure, on home O2 especially at night. 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 Plan From cardiology's perspective, we'll recommend to continue the patient on her current medications. Transferred to rehab today. DNP note has been reviewed, I agree with a documented findings and plan of care. Patient was seen and examined.
--- NOTE | 2018-07-16 15:18 | P.PN ---
Subjective Progress Note Date: 07/16/18 Principal diagnosis: Coronary artery disease status post coronary artery bypass grafting, mitral valve repair This is a 73-year-old female with known history of COPD, Gold stage II, FEV1 is 63%. usually sees Dr. Perez, she is mostly on oxygen at night. Patient was recently found to have multivessel coronary artery disease and severe mitral regurgitation. She was cleared by Dr. Perez for surgery based on her PFTs done in the office, and on 07/07/2018, patient underwent multivessel myocardial revascularization, she underwent five-vessel bypass surgery, with LIU to LAD, SVG to the first and second obtuse marginal as well as the RCA. She also had mitral valve annuloplasty and ligation of left atrial appendage. Postoperatively, patient was on mechanical ventilation, and I was asked to see her on consultation. Her postoperative course was relatively uneventful. She hours after her surgery, I was called about her ventilator settings, her weaning ABG, and initially she was borderline for extubation. Hence we delayed the extubation about 2 hours. As her mental status improved and the patient became more awake, follow-up ABG was done, follow-up trial on pressure support and CPAP was given, patient was extubated uneventfully. Later at night the patient developed some desaturation, chest x-ray showed evidence of interstitial edema, responded to 20 mg of Lasix given and her O2 saturation improved presently on 15 L high flow nasal cannula, patient is not in any distress. Seen this morning, patient is doing well, relatively asymptomatic, and O2 saturation is in the mid 90s on 50% high flow nasal cannula. Patient was reevaluated today on 07/09/2018, remains in the ICU, she was extubated yesterday uneventfully. Patient is doing great, she feels generally weak, doing fairly well with incentive spirometry and area where between 500- 750 mL. She is already ambulating in the hallway, but she was noted to be quite weak with assistance while ambulating in front of the room in the ICU hallway. Denies any chest pain, no cough, no wheezing, no shortness of breath, remains on few liters nasal cannula, O2 saturation is in the low 90s. Chest x- ray this morning showed a trace of right pleural effusion, small left pleural effusion, and atelectasis. This is basically expected after CABG. All labs were reviewed, her hemoglobin was noted to be 6.8, however decision whether the patient is to be transfused would be left to the cardiac surgeon on the case. Renal functioning showed a BUN of 32 creatinine of 1.1. Creatinine is a bit worse compared to baseline before admission. Patient was reevaluated today on 07/10/2018, she is presently postoperative day #3 , CABG 5 with sequential LIU to diagonal and LAD, reverse saphenous vein graft to first and second obtuse marginal and right coronary artery mitral valve annuloplasty ligation of left atrial appendage. Last night the patient was noted to desaturate, and she required to be placed on non-rebreather mask for a period of time basically overnight. Today she is on a high flow nasal cannula, and she may have to go back on the nonrebreather mask if she doesn't continue to maintain adequate saturation. She was given Lasix last night, and she diuresed almost 2 L overnight. Chest x-ray continues to show some evidence of interstitial edema. And left lower lobe atelectasis with possibly a small tiny left pleural effusion. All chest tubes have been pulled out yesterday, and the patient is doing poorly with incentive spirometry. Hemoglobin remains low at 6.8. Electrolytes are normal BUN is 37 creatinine is 1.06. Reevaluated today on 07/11/2018, patient is postoperative day #4. Remains in the intensive care unit, presently on a high flow nasal cannula, actually she is on airvo with high flow and high FiO2 to maintain O2 saturation in the 90s. Clinically the patient is doing better than expected, her chest x-ray continues to show interstitial edema, atelectasis at the left base, small bilateral pleural effusions, however the ultrasound which I requested and reviewed does not show much fluid to consider thoracentesis on this patient. Patient is on Lasix, her renal functioning is showing slight prerenal picture, hemoglobin today is better at 8.8. Patient was given a unit of packed RBCs yesterday in p.m.. BUN today is 36 creatinine 0.83. Patient was reevaluated today on 07/12/2018, she is postoperative day #5, remains in the intensive care unit, on high flow and high FiO2 oxygen, actually she is on airvo. O2 saturation is 98%. Patient is on 50 L/m flow, and 60% FiO2. O2 saturation is in the mid and high 90s. Chest x-ray continues to show atelectasis bilaterally, and some component of interstitial edema. Remains on Lasix. In spite of her condition the patient seems to be comfortable, but could not lower the FiO2 down any further. She is being titrated to keep the saturation above 90%. Remains on incentive spirometry. Her hemoglobin today is 7.6 electrodes are normal renal profile is normal BUN is a bit elevated at 36. Reevaluated today on 07/13/2018, remains in the ICU, patient is postoperative day #6. Yesterday she was placed on renal perfusion dose of dopamine, patient had a significant improvement in her urine output, and we were able to cut down her FiO2 from high flow and high FiO2, she is presently now on few liters nasal cannula. She is actually on 3 L nasal cannula, and her O2 saturation is 96%. Patient is feeling much better, no cough no wheezing no shortness of breath no chest pain. Her BUN is a bit elevated at 33 creatinine is 0.98. Patient is afebrile, and basically asymptomatic today. On 07/15/2018 patient remains stable in the intensive care unit, she is sitting up in the recliner, in no acute distress, currently on 2 L per nasal cannula and her pulse ox is 94%, hemodynamically stable, no fever or chills, remains in sinus rhythm. Today's labs have been reviewed, WBC is 9.7, hemoglobin is 7.8, electrodes were within normal limits, B1 is 26 and creatinine is 1.05. Sputum culture showed no growth. Lung sounds positive for some minimal crackles at the bases. Patient has been ambulating with assistance, tolerating it fairly well, although weak. Today's chest x-ray has been reviewed with Dr. Villegas, and showed cardiomegaly, with prominence of the pulmonary vascular markings, suggesting fluid overload, patient did receive on the dose of IV Lasix per CT surgery today. Over the last 24 hours she is in 1315 mL negative fluid balance. The patient was seen today 07/16/2018 in follow-up on the selective care unit. She is currently sitting up in a chair at the bedside. She is awake and alert in no acute distress. She is maintaining good O2 saturations in the 90s on 2 L/ m per nasal cannula. She is afebrile. Hemodynamically stable. Sputum culture reveals no growth. White count 11.9. Hemoglobin 8.0. Creatinine 1.38. She remains on bronchodilators, Symbicort. Objective - Vital Signs Vital signs: Vital Signs Temp 97.1 F L 07/16/18 12:00 Pulse 82 07/16/18 12:10 Resp 20 07/16/18 12:00 BP 95/46 07/16/18 12:00 Pulse Ox 93 L 07/16/18 12:00 Intake & Output 07/15/18 07/16/18 07/16/18 18:59 06:59 18:59 Intake Total 860 500 720 Output Total 1370 0 Balance -510 500 720 Weight 73.8 kg 72.8 kg Intake: Oral 860 500 720 Output: Urine 1370 Stool 0 Other: Voiding Method Bedside Commode Bedside Commode # Voids 1 2 ABP, PAP, CO, CI - Last Documented Arterial Blood Pressure 122/44 Pulmonary Artery Pressure 44/24 Cardiac Output 4.1 Cardiac Index 2.4 - Exam GENERAL EXAM: Alert, active, comfortable in no apparent distress. On nasal cannula. HEAD: Normocephalic. Atraumatic. EYES: Normal reaction of pupils, equal size. NOSE: Clear with pink turbinates. THROAT: No erythema or exudates. NECK: No masses, no JVD. CHEST: No chest wall deformity. Heart hugger in place. LUNGS: Equal air entry with crackles in the posterior bases. CVS: S1 and S2 normal with no audible murmur, regular rhythm. ABDOMEN: No hepatosplenomegaly, normal bowel sounds, no guarding or rigidity. SPINE: No scoliosis or deformity SKIN: No rashes CENTRAL NERVOUS SYSTEM: No focal deficits, tone is normal in all 4 extremities. EXTREMITIES: There is no peripheral edema. No clubbing, no cyanosis. Peripheral pulses are intact. - Labs CBC & Chem 7: 07/16/18 06:04 07/16/18 06:04 Labs: Abnormal Lab Results - Last 24 Hours (Table) 07/15/18 07/15/18 07/16/18 Range/Units 16:49 20:50 05:58 WBC (3.8-10.6) k/uL RBC (3.80-5.40) m/uL Hgb (11.4-16.0) gm/dL Hct (34.0-46.0) % MCV (80.0-100.0) fL RDW (11.5-15.5) % Neutrophils # (1.3-7.7) k/uL BUN (7-17) mg/dL Creatinine (0.52-1.04) mg/dL Glucose (74-99) mg/dL POC Glucose (mg/dL) 131 H 139 H 126 H (75-99) mg/dL Total Protein (6.3-8.2) g/dL Albumin (3.5-5.0) g/dL 07/16/18 07/16/18 07/16/18 Range/Units 06:04 06:04 11:25 WBC 11.9 H (3.8-10.6) k/uL RBC 2.46 L (3.80-5.40) m/uL Hgb 8.0 L (11.4-16.0) gm/dL Hct 25.4 L (34.0-46.0) % MCV 103.3 H (80.0-100.0) fL RDW 16.4 H (11.5-15.5) % Neutrophils # 8.4 H (1.3-7.7) k/uL BUN 24 H (7-17) mg/dL Creatinine 1.38 H (0.52-1.04) mg/dL Glucose 111 H (74-99) mg/dL POC Glucose (mg/dL) 121 H (75-99) mg/dL Total Protein 5.3 L (6.3-8.2) g/dL Albumin 2.8 L (3.5-5.0) g/dL Assessment and Plan Assessment: Impression: #1 Coronary artery disease with mitral valve impairment. Status post coronary artery bypass grafting 5 with sequential LIU to the diagonal, LAD, SVG to the first and second obtuse marginal and right coronary artery. Mitral valve annuloplasty. #2 Acute on chronic hypoxic respiratory failure secondary to bilateral pleural effusions/atelectasis as an expected outcome of coronary artery bypass grafting. Improved. #3 Gold stage II chronic obstructive pulmonary disease FEV1 value 63% of predicted. #4 Hypothyroidism. #5 Acute blood loss anemia as expected outcome of surgery. #6 Acute on chronic systolic congestive heart failure. #7 Carotid artery disease. #8 Chronic hypoxic respiratory failure on home oxygen mainly at night. #9 History of breast cancer, previous right-sided mastectomy. #10 Chronic tobacco dependence in remission. Plan: The patient was seen and evaluated by Dr. Villegas. His x-ray and labs reviewed. She is stable from the pulmonary standpoint. Continue bronchodilators and oxygen in the outpatient setting. The plan is for discharge to inpatient rehabilitation. I, the cosigning physician, performed a history & physical examination of the patient. Lungs sounds with crackles in the posterior bases. Maintaining good O2 saturations in the 90s on 2 L/m per nasal cannula. I discussed the assessment and plan of care with my nurse practitioner, Lizette Denson. I attest to the above note as dictated by her.
== END 2018-07-16 15:00 | DRG 219 ==
LOC: 2ORMAIN 05:31 → 2SICU 15:03 → 3SCARD 07-15 21:43
PROVIDERS: ADMIT Thoracic Surgery (Cardiothoracic Vascular Surgery); ATTEND Thoracic Surgery (Cardiothoracic Vascular Surgery)
PROC: B246ZZ4 Ultrasonography of Right and Left Heart, Transesophageal (ICD-10-PCS; principal; 2018-07-07 08:00)
PROC: 0211099 Bypass Coronary Artery, Two Arteries from Left Internal Mammary with Autologous Venous Tissue, Open Approach (ICD-10-PCS; principal; 2018-07-07 08:00)
PROC: 021209W Bypass Coronary Artery, Three Arteries from Aorta with Autologous Venous Tissue, Open Approach (ICD-10-PCS; principal; 2018-07-07 08:00)
PROC: 06BQ4ZZ Excision of Left Saphenous Vein, Percutaneous Endoscopic Approach (ICD-10-PCS; principal; 2018-07-07 08:00)
PROC: 02L70ZK Occlusion of Left Atrial Appendage, Open Approach (ICD-10-PCS; principal; 2018-07-07 08:00)
PROC: 02UG0JZ Supplement Mitral Valve with Synthetic Substitute, Open Approach (ICD-10-PCS; principal; 2018-07-07 08:00)
PROC: 5A1221Z Performance of Cardiac Output, Continuous (ICD-10-PCS; principal; 2018-07-07 08:00)
DX: I25.10 Atherosclerotic heart disease of native coronary artery without angina pectoris (principal); J96.21 Acute and chronic respiratory failure with hypoxia; D62 Acute posthemorrhagic anemia; I70.261 Atherosclerosis of native arteries of extremities with gangrene, right leg; J98.11 Atelectasis; I50.22 Chronic systolic (congestive) heart failure; D69.6 Thrombocytopenia, unspecified; D72.829 Elevated white blood cell count, unspecified; E03.9 Hypothyroidism, unspecified; E55.9 Vitamin D deficiency, unspecified; E66.01 Morbid (severe) obesity due to excess calories; E78.5 Hyperlipidemia, unspecified; F17.201 Nicotine dependence, unspecified, in remission; I11.0 Hypertensive heart disease with heart failure; I25.2 Old myocardial infarction; I34.0 Nonrheumatic mitral (valve) insufficiency; I48.0 Paroxysmal atrial fibrillation; I65.21 Occlusion and stenosis of right carotid artery; J44.9 Chronic obstructive pulmonary disease, unspecified; K59.00 Constipation, unspecified; M41.9 Scoliosis, unspecified; R73.03 Prediabetes; T46.4X5A Adverse effect of angiotensin-converting-enzyme inhibitors, initial encounter; Z79.51 Long term (current) use of inhaled steroids; Z79.899 Other long term (current) drug therapy; Z82.49 Family history of ischemic heart disease and other diseases of the circulatory system; Z83.3 Family history of diabetes mellitus; Z85.3 Personal history of malignant neoplasm of breast; Z90.11 Acquired absence of right breast and nipple; Z91.19 Patient's noncompliance with other medical treatment and regimen; Z92.21 Personal history of antineoplastic chemotherapy; Z92.3 Personal history of irradiation; Z99.81 Dependence on supplemental oxygen; R33.9 Retention of urine, unspecified
CPT/HCPCS: 36600; 71045; 71046; 76604; 80048; 80053; 81003; 82330; 82805; 83735; 84100; 85025; 85027; 85520; 85610; 85730; 86850; 86891; 86900; 86901; 86920; 87070; 87205; 88305; 94002; 94640

== ENCOUNTER → 2018-08-18 | Outpatient (CLI) | payer MEDICARE ==
[2018-08-18 17:19] LABS: Albumin 4.1 g/dL (3.80-4.90); Albumin/Globulin Ratio 1.64 (1.60-3.17); Anion Gap 7.4 mmol/L (4.00-12.00); Calcium 9.3 mg/dL (8.7-10.3); Carbon Dioxide 28.6 mmol/L (21.6-31.8); Globulin 2.5 g/dL (1.6-3.3); LDL Cholesterol,Calculated 73.6 mg/dL (0.0-131.0); Potassium 4.3 mmol/L (3.5-5.5); Total Bilirubin 0.5 mg/dL (0.3-1.2); Total Protein 6.6 g/dL (6.2-8.2); VLDL Calculation 18.4 mg/dL (5.00-40.00)
[2018-08-18 17:25] LABS: T4, Free (Free Thyroxine) 1.1 ng/dL (0.80-1.80)
== END ==
LOC: LABWHC1 08:28
PROVIDERS: ATTEND Internal Medicine Interventional Cardiology
DX: E78.2 Mixed hyperlipidemia (principal); E03.9 Hypothyroidism, unspecified
CPT/HCPCS: 36415; 80053; 80061; 84439; 84443

== ENCOUNTER 2018-09-02 20:06 | Observation (INO) | payer MEDICARE ==
[2018-09-02] MEDS ORDERED: ASPIRIN 81 MG PO STA (20:34)
[2018-09-02 20:54] LABS: Anisocytosis Slight; Basophils # (A) 0.1 k/uL (0-0.2); Basophils % (A) 1 %; Eosinophils # (A) 0.3 k/uL (0-0.7); Eosinophils % (A) 3 %; HCT 38.1 % (34.0-46.0); Hypochromasia Slight; Lymphocytes # (A) 2.9 k/uL (1.0-4.8); Lymphocytes % (A) 30 %; MCHC 31.3 g/dL (31.0-37.0); MCV 102.3 fL (80.0-100.0); Macrocytosis Moderate; Mean Platelet Volume 7.3; Monocytes # (A) 0.6 k/uL (0-1.0); Monocytes % (A) 6 %; Neutrophils # (A) 5.7 k/uL (1.3-7.7); Neutrophils % (A) 58 %; Platelet Count 215 k/uL (150-450); RBC 3.73 m/uL (3.80-5.40); RDW 16.5 % (11.5-15.5); WBC 9.8 k/uL (3.8-10.6)
[2018-09-02 21:02] LABS: INR 0.9 (<1.2); Partial Thromboplastin Time 22.4 sec (22.0-30.0); Prothrombin Time 9.8 sec (9.0-12.0)
[2018-09-02 21:09] LABS: Albumin 3.9 g/dL (3.5-5.0); Calcium 9.1 mg/dL (8.4-10.2); Potassium 4.9 mmol/L (3.5-5.1); Total Bilirubin 0.6 mg/dL (0.2-1.3)
--- NOTE | 2018-09-02 21:12 | ED ---
Chest Pain HPI - General Source: patient, RN notes reviewed Mode of arrival: ambulatory Limitations: no limitations <Jose Alaniz - Last Filed: 09/02/18 22:47> <Anna Quach P - Last Filed: 09/03/18 08:04> - General Chief Complaint: Chest Pain Stated Complaint: Chest pain Time Seen by Provider: 09/02/18 20:33 - History of Present Illness Initial Comments: 73-year-old female presents emergency Department with chief complaint of chest pain. Patient states that the chest that started a few hours prior arrival. Patient states it radiated up to her left shoulder left side of her neck. Patient is 2 months status post CABG 5 vessels and mitral valve repair. Patient does not take any blood thinners. Patient states her symptoms this resolved at this time. She does admit that she did more activity today than usual. Patient's cardiothoracic surgeon was Dr. Marks. Patient denies any recent URI symptoms no fevers or chills denies any nausea vomiting diarrhea constipation. (Jose Alaniz) - Related Data Home Medications Medication Instructions Recorded Confirmed Atorvastatin [Lipitor] 40 mg PO HS 09/02/18 09/02/18 Carvedilol 12.5 mg PO BID 09/02/18 09/02/18 Furosemide [Lasix] 20 mg PO BID 09/02/18 09/02/18 Previous Rx's Medication Instructions Recorded Budesonide-Formot 160-4.5 Mcg 2 puff INHALATION RT-BID #1 inhaler 10/29/17 [Symbicort 160-4.5 Mcg Inhaler] Acetaminophen Tab [Tylenol] 325 mg PO Q4HR PRN tab 07/16/18 Ipratropium-Albuterol Nebulize 3 ml INHALATION RT-QID ampul.neb 07/16/18 [Duoneb 0.5 mg-3 mg/3 ml Soln] Allergies Allergy/AdvReac Type Severity Reaction Status Date / Time morphine AdvReac Hallucinati Verified 09/03/18 00:11 ons Review of Systems ROS Other: All systems not noted in ROS Statement are negative. <Jose Alaniz - Last Filed: 09/02/18 22:47> ROS Other: All systems not noted in ROS Statement are negative. <Anna Quach - Last Filed: 09/03/18 08:04> ROS Statement: Those systems with pertinent positive or pertinent negative responses have been documented in the HPI. EKG Findings - EKG Comments: EKG Findings:: EKG performed at 20:45 normal sinus rhythm with rate of 83 SC 196 QRS 96 QT/QTC 414/486 <Jose Alaniz - Last Filed: 09/02/18 22:47> Past Medical History Past Medical History: Coronary Artery Disease (CAD), Cancer, COPD, Hypertension , Myocardial Infarction (MT), Skin Disorder, Thyroid Disorder Additional Past Medical History / Comment(s): Hx Right Breast cancer with mastectomy, radiation & chemotherapy, scoliosis of the spine, hypothyroidism, vitamin D deficiency. O2 at night 2L per nasal cannula. Recent fatigue and SOB. Hx Psoriasis. Dry Gangrene right 4th toe., Varicose veins., CHESTER and hyperkalemia. Last Myocardial Infarction Date:: 10/2017 History of Any Multi-Drug Resistant Organisms: None Reported Past Surgical History: Breast Surgery, Cardiac Valve Replacement, Coronary Bypass/CABG, Heart Catheterization Additional Past Surgical History / Comment(s): Right mastectomy. CABG 5 vessel 07/07/18. Past Anesthesia/Blood Transfusion Reactions: No Reported Reaction Additional Past Anesthesia/Blood Transfusion Reaction / Comment(s): NO HX OF BLOOD TRANSFUSION. Past Psychological History: No Psychological Hx Reported Smoking Status: Former smoker Past Alcohol Use History: Occasional Past Drug Use History: None Reported - Past Family History Father Family Medical History: Coronary Artery Disease (CAD), CVA/TIA, Hypertension, Myocardial Infarction (MT) Mother Family Medical History: Coronary Artery Disease (CAD), CVA/TIA, Diabetes Mellitus, Hypertension, Myocardial Infarction (MT) Additional Family Medical History / Comment(s): pace maker <Jose Alaniz - Last Filed: 09/02/18 22:47> General Exam Limitations: no limitations General appearance: alert, in no apparent distress Head exam: Present: atraumatic, normocephalic, normal inspection Eye exam: Present: normal appearance, PERRL, EOMI. Absent: scleral icterus, conjunctival injection, periorbital swelling ENT exam: Present: normal exam, normal oropharynx, mucous membranes moist Neck exam: Present: normal inspection, full ROM. Absent: tenderness, meningismus, lymphadenopathy Respiratory exam: Present: normal lung sounds bilaterally. Absent: respiratory distress, wheezes, rales, rhonchi, stridor Cardiovascular Exam: Present: regular rate, normal rhythm, normal heart sounds. Absent: systolic murmur, diastolic murmur, rubs, gallop, clicks Neurological exam: Present: alert, oriented X3, CN II-XII intact, reflexes normal. Absent: motor sensory deficit Skin exam: Present: warm, dry, intact, normal color. Absent: rash <Jose Alaniz - Last Filed: 09/02/18 22:47> Vital Signs 09/02/18 09/02/18 20:12 22:08 Temperature 97.8 F Pulse Rate 85 74 Respiratory 20 18 Rate Blood Pressure 147/75 130/53 O2 Sat by Pulse 94 L 94 L Oximetry Chest Pain MDM <Jose Alaniz - Last Filed: 09/02/18 22:47> <Anna Quach - Last Filed: 09/03/18 08:04> - [facility] 73-year-old female presented for chest pain. Patient is 2 months status post CABG with mitral valve repair. Patient will be admitted for cardiac rule out. ( Jose Alaniz) I personally saw and examined the patient. I reviewed and agree with the mid- level provider findings including all diagnostic interpretations and treatment plans as written unless otherwise stated. Patient care was discussed with Dr. De La Paz who accepts the admission. (Anna Quach) Disposition <Jose Alaniz - Last Filed: 09/02/18 22:47> <Anna Quach - Last Filed: 09/03/18 08:04> Clinical Impression: Chest pain Disposition: ADMITTED IP TO THIS HOSP Condition: Stable
[2018-09-02 21:30] LABS: HGB 11.9 gm/dL (11.4-16.0)
[2018-09-02] MEDS ORDERED: HEPARIN SODIUM,PORCINE 5,000 UNIT/ML 1 ML VIAL IV ONE (22:31)
[2018-09-02] MEDS ORDERED: NITROGLYCERIN SL TABS 0.4 MG TAB SUBLINGUAL PRN (22:31)
--- NOTE | 2018-09-02 22:39 | XR ---
EXAM: XR Chest, 2 Views CLINICAL HISTORY: ITS.REASON XR Reason: Chest Pain TECHNIQUE: Frontal and lateral views of the chest. COMPARISON: 08/01/18 FINDINGS: Lungs: Stable linear opacities in the left base favoring atelectasis and/or scarring. Also likely mild atelectasis in the right base. COPD. Pleural space: Unremarkable. No pneumothorax. Heart: Unremarkable. No cardiomegaly. Mediastinum: Unremarkable. Bones/joints: Sternotomy wires. Stable cardiac valve prosthesis. Stable mild degenerative disc changes. Soft tissues: Surgical michele overlying the right axilla. IMPRESSION: 1. Left basilar airspace disease favoring atelectasis. No acute findings or interval acute changes.
[2018-09-02] MEDS ORDERED: HEPARIN SOD,PORK IN 0.45% NACL 25,000 UNIT in 0.45% NACL 1 250ML.BAG IV SCH (22:45)
[2018-09-03] MEDS ORDERED: ASPIRIN 325 MG TAB PO SCH (09:00)
[2018-09-03 10:14] LABS: Cholesterol 161 mg/dL (<200); HDL Cholesterol 64 mg/dL (40-60); LDL Cholesterol,Calculated 78 mg/dL (0-99); Triglycerides 93 mg/dL (<150)
--- NOTE | 2018-09-03 10:20 | P.CRDCN ---
History of Present Illness History of present illness: This is a pleasant 73-year-old female past medical history significant for coronary artery bypass grafting June 2018, 5 vessel with a LIU to LAD and diagonal branch, SVG to OM 1, OM 2 and RCA. At that time she also underwent mitral valve repair with ligation of the left atrial appendage. She also has dyslipidemia, peripheral vascular disease, hypertension, history of ischemic cardiomyopathy and former nicotine dependence. She follows in the office with Dr. Bass. We have been asked to see her in consultation for symptoms of chest discomfort. She states yesterday was the first day that she went back to somewhat of a normal routine since her bypass surgery 07/07/2018. She states she went to the grocery store and did some shopping and then did some small light errands around the house. At the end of the evening when she sat down for the night she started feeling a heavy sensation in the midsternal precordial region with radiation to the left shoulder and then subsequently thereafter headache. Her symptoms lasted a few minutes and were not associated with shortness of breath, dizziness or palpitations. She took aspirin 81 mg and the pain in her chest seemed to subside area however she had a persistent headache. She recently was seen in the office by Dr. Bass and underwent echocardiogram which revealed preserved left ventricular systolic function with ejection fraction 50%, grade 1 diastolic dysfunction, aortic valve calcification noted with trace aortic regurgitation, annuloplasty ring of the mitral valve with normal function, mild prosthetic valvular regurgitation. She is seen and examined sitting up in bed in no acute distress. She denies any further symptoms of chest pain since arriving to the hospital. EKG on admission reveals sinus mechanism heart rate 83 with no acute abnormalities noted. Chest x-ray reveals evidence of left basilar airspace disease with no acute cardiopulmonary process. Laboratory data reviewed, WBC 9.8, hemoglobin 11.9, platelets 2:15, sodium 137, potassium 4.9, creatinine 1.68, magnesium 2.0, cardiac enzymes negative 2, LDL 78 and HDL 64. Current cardiac medications include Lasix 20 mg twice a day, carvedilol 12.5 mg twice a day, atorvastatin 40 mg daily and aspirin 81 mg daily. At the time of my exam: CONSTITUTIONAL: Denies fever. Denies chills. EYES: Denies blurred vision. Denies vision changes. Denies eye pain. EARS, NOSE, MOUTH & THROAT: Denies headache. Denies sore throat. Denies ear pain. CARDIOVASCULAR: Denies chest pain. Denies shortness of breath. Denies orthopnea. Denies PND. Denies palpitations. RESPIRATORY: Denies cough. GASTROINTESTINAL: Denies abdominal pain. Denies diarrhea. Denies constipation. Denies nausea. Denies vomiting. MUSCULOSKELETAL: Denies myalgias. INTEGUMENTARY: Denies pruitis. Denies rash. NEUROLOGIC: Denies numbness. Denies tingling. Denies weakness. PSYCHIATRIC: Denies anxiety. Denies depression. ENDOCRINE: Denies fatigue. Denies weight change. Denies polydipsia. Denies polyurina. GENITOURINARY: Denies burning, hematuria or urgency with micturation. HEMATOLOGIC: Denies history of anemia. Denies bleeding. Blood pressure 122/71 heart rate 77 afebrile maintaining oxygen saturation on room air GENERAL: This is a 73-year-old female in no apparent distress at the time of my examination. HEENT: Head is atraumatic, normocephalic. Pupils are equal, round. Sclerae anicteric. Conjunctivae are clear. Mucous membranes of the mouth are moist. Neck is supple. There is no jugular venous distention. No carotid bruit is heard. LUNGS: Clear to auscultation no wheezes, rales or rhonchi. No chest wall tenderness is noted on palpation or with deep breathing. Diminished bilaterally. HEART: Regular rate and rhythm with faint systolic ejection murmur at the base, no rubs or gallops. S1 and S2 heard. ABDOMEN: Soft, nontender. Bowel sounds are heard. No organomegaly noted. EXTREMITIES: No evidence of peripheral edema and no calf tenderness noted. VASCULAR: Radial and dorsalis pedis pulses palpated, no evidence of clubbing. NEUROLOGIC: Patient is awake, alert and oriented x3. ASSESSMENT Chest pain, atypical for angina. History of coronary artery disease status post recent 5 vessel bypass grafting Mitral valve repair with ring annuloplasty, echo in the offie 08/26/18 shows normally functioning prosthetic valve. History of ischemic cardiomyopathy, currently euvolemic recent echocardiogram performed in the office reveals improved LV systolic function Dyslipidemia Hypertension PLAN Continue to obtain serial cardiac enzymes to rule out an acute event. Increase activity and ambulate the patient in the halls. If an acute event is rule out and she remains chest pain free with exertion she is stable from a cardiac perspective. Follow up with Dr. Bass as previously established. Thank you kindly for this consultation. Nurse Practitioner note has been reviewed, I agree with a documented findings and plan of care. Patient was seen and examined. Past Medical History Past Medical History: Coronary Artery Disease (CAD), Cancer, COPD, Hypertension , Myocardial Infarction ([place]), Skin Disorder, Thyroid Disorder Additional Past Medical History / Comment(s): Hx Right Breast cancer with mastectomy, radiation & chemotherapy, scoliosis of the spine, hypothyroidism, vitamin D deficiency. . Recent fatigue and SOB. Hx Psoriasis. Dry Gangrene right 4th toe., Varicose veins., CHESTER and hyperkalemia. Last Myocardial Infarction Date:: 10/2017 History of Any Multi-Drug Resistant Organisms: None Reported Past Surgical History: Breast Surgery, Cardiac Valve Replacement, Coronary Bypass/CABG, Heart Catheterization Additional Past Surgical History / Comment(s): Right mastectomy. CABG 5 vessel 07/07/18. Past Anesthesia/Blood Transfusion Reactions: No Reported Reaction Additional Past Anesthesia/Blood Transfusion Reaction / Comment(s): NO HX OF BLOOD TRANSFUSION. Smoking Status: Former smoker - Past Family History Father Family Medical History: Coronary Artery Disease (CAD), CVA/TIA, Hypertension, Myocardial Infarction ([place]) Mother Family Medical History: Coronary Artery Disease (CAD), CVA/TIA, Diabetes Mellitus, Hypertension, Myocardial Infarction ([place]) Additional Family Medical History / Comment(s): pace maker Medications and Allergies Home Medications Medication Instructions Recorded Confirmed Type Budesonide-Formot 160-4.5 Mcg 2 puff INHALATION RT-BID #1 inhaler 10/29/1709/02 Rx [Symbicort 160-4.5 Mcg Inhaler] Acetaminophen Tab [Tylenol] 325 mg PO Q4HR PRN tab 07/16/18 09/02/18 Rx Ipratropium-Albuterol Nebulize 3 ml INHALATION RT-QID ampul.neb 07/16/18 Rx [Duoneb 0.5 mg-3 mg/3 ml Soln] Atorvastatin [Lipitor] 40 mg PO HS 09/02/18 09/02/18 History Carvedilol 12.5 mg PO BID 09/02/18 09/02/18 History Furosemide [Lasix] 20 mg PO BID 09/02/18 09/02/18 History Allergies Allergy/AdvReac Type Severity Reaction Status Date / Time morphine AdvReac Hallucinati Verified 09/03/18 00:11 ons Physical Exam Vitals: Vital Signs Temp Pulse Pulse Resp BP BP Pulse Ox 09/03/18 07:00 98.3 F 77 18 122/71 92 L 09/03/18 04:00 97.6 F 78 18 126/56 91 L 09/03/18 03:18 18 09/03/18 00:00 97.3 F L 78 18 150/67 92 L 09/02/18 22:08 74 18 130/53 94 L 09/02/18 20:12 97.8 F 85 20 147/75 94 L Intake and Output 09/02/18 09/03/18 09/03/18 22:59 06:59 14:59 Other: Voiding Method Toilet Weight 68.039 kg Results 09/02/18 20:32 09/02/18 20:32 Cardiac Enzymes 09/02/18 09/02/18 09/03/18 Range/Units 20:32 20:32 02: AST 31 (14-36) U/L Troponin I <0.012 <0.012 (0.000-0.034) ng/mL Coagulation 09/02/18 Range/Units 20:32 PT 9.8 (9.0-12.0) sec APTT 22.4 (22.0-30.0) sec CBC 09/02/18 Range/Units 20:32 WBC 9.8 (3.8-10.6) k/uL RBC 3.73 L (3.80-5.40) m/uL Hgb 11.9 D (11.4-16.0) gm/dL Hct 38.1 (34.0-46.0) % Plt Count 215 (150-450) k/uL Comprehensive Metabolic Panel 09/02/18 Range/Units 20:32 Sodium 137 (137-145) mmol/L Potassium 4.9 (3.5-5.1) mmol/L Chloride 102 (98-107) mmol/L Carbon Dioxide 27 (22-30) mmol/L BUN 38 H (7-17) mg/dL Creatinine 1.68 H (0.52-1.04) mg/dL Glucose 105 H (74-99) mg/dL Calcium 9.1 (8.4-10.2) mg/dL AST 31 (14-36) U/L ALT 35 (9-52) U/L Alkaline Phosphatase 77 (38-126) U/L Total Protein 7.0 (6.3-8.2) g/dL Albumin 3.9 (3.5-5.0) g/dL Current Medications Generic Name Dose Route Start Last Admin Trade Name Freq PRN Reason Stop Dose Admin Aspirin 81 mg 09/03/18 09:00 Aspirin PO DAILY BETSY Nitroglycerin 0.4 mg 09/02/18 22:31 Nitrostat SUBLINGUAL Q5M PRN Chest Pain Intake and Output 09/02/18 09/03/18 09/03/18 22:59 06:59 14:59 Other: Voiding Method Toilet Weight 68.039 kg 09/02/18 20:32 09/02/18 20:32
[2018-09-03] MEDS: ASPIRIN 81 MG PO SCH (12:06)
[2018-09-03] MEDS: SYMBICORT 160-4.5 MCG INHALER INHALATION SCH ×3 (14:59→19:11)
[2018-09-03] MEDS: IPRATROPIUM-ALBUTEROL 3 ML NEB INHALATION SCH ×2 (15:01→19:02)
[2018-09-03] MEDS: ACETAMINOPHEN TAB 325 MG TAB PO PRN (16:18)
[2018-09-03] MEDS: CARVEDILOL 12.5 MG TAB PO SCH (16:18)
[2018-09-03] MEDS: LACTATED RINGERS 1,000 ML IV SCH (16:43)
--- NOTE | 2018-09-03 20:42 | HP ---
HISTORY AND PHYSICAL DATE OF ADMISSION: 09/02/2018 DATE OF SERVICE: 09/03/2018 PRESENTING COMPLAINT: Chest pain. HISTORY OF PRESENTING COMPLAINT: This is a pleasant 73-year-old patient of Dr. Ling. Chronic stable medical conditions include COPD, hypertension, scoliosis, vitamin D deficiency, varicose veins. The patient in June 2018 underwent a coronary artery bypass by Dr. Marks. The patient also underwent mitral valve annuloplasty and ligation of the left atrial appendage. The patient's ejection fraction previously was 20% to 25%, but Cardiology's note from today revealed that patient had seen Dr. Bass recently in the office. EF had come up to 50%. The patient was going about her usual day yesterday and she had a heaviness in the chest, some radiation down the left arm that lasted for a few minutes, but also she had a headache and was just feeling tired and rundown. She does occasionally get dizzy and lightheaded, and because of this multitude of symptoms she presented. Chest pain did not come back. She was admitted for cardiac evaluation. The patient was also found to have an elevated creatinine; that is new. REVIEW OF SYSTEMS: CONSTITUTIONAL: Tired. HEENT: As above. RESPIRATORY: None. CARDIOVASCULAR: As above. GASTROINTESTINAL: None. GENITOURINARY: None. MUSCULOSKELETAL: Some pain in the joints. DERMATOLOGICAL: None. HEMATOLOGICAL: None. LYMPHATICS: None. PSYCHIATRY: None. NEUROLOGICAL: None. PAST MEDICAL HISTORY: 1. Coronary artery disease. 2. COPD. 3. Hypertension. 4. Right breast cancer. 5. Mastectomy. 6. Radiation and chemotherapy. 7. Scoliosis of the spine. 8. Vitamin D deficiency. 9. Psoriasis. 10.Dry gangrene of the right fourth toe. 11.Varicose veins. PAST SURGICAL HISTORY: 1. Breast surgery. 2. Mitral valve annuloplasty. 3. Coronary artery bypass. 4. Right mastectomy. 5. Five-vessel bypass in June 2018. PSYCH HISTORY: Some anxiety. SOCIAL HISTORY: The patient has smoked less than a pack a day for close to 40 years; stopped a year ago. Alcohol occasionally. Lives with her . FAMILY HISTORY: Stroke, coronary artery disease, hypertension. HOME MEDICATIONS: 1. DuoNeb q.i.d. 2. Lasix 20 mg b.i.d. 3. Coreg 12.5 p.o. b.i.d. 4. Symbicort 2 puffs b.i.d. 5. Lipitor 40 mg at bedtime. 6. Tylenol p.r.n. ALLERGIES: MORPHINE. PHYSICAL EXAMINATION: VITAL SIGNS ON PRESENTATION: Temperature 97.8, pulse 85, respiration 20, blood pressure 147/75, pulse ox 94% on room air. GENERAL APPEARANCE: Average build. Sitting up, comfortable. EYES: Pupils equal. Conjunctivae normal. HEENT: External appearance of nose and ears normal. Oral cavity normal. NECK: JVD not raised. Mass not palpable. RESPIRATORY: Effort normal. LUNGS: Diminished breath sounds. CARDIOVASCULAR: First and second sounds normal. No edema. ABDOMEN: Soft, non-tender. Liver and spleen not palpable. LYMPHATIC: No lymph node palpable in neck or axillae. PSYCHIATRY: Alert and oriented x3. Mood and affect normal. NEUROLOGICAL: Pupils equal. Cranial nerves grossly intact. Power and sensation grossly intact. MUSCULOSKELETAL: Evidence of osteoarthritis, especially in the hands. INVESTIGATIONS: White count 9.8, hemoglobin 11.9, potassium 4.9, BUN 38, creatinine 1.68. Patient's creatinine was 1.0 on 08/18/2018. Troponin x3 negative. Recent TSH was normal. Also, cardiology notes revealed recent EF to be 50%. EKG tracing, personally reviewed by me, shows poor R-wave progression in the anterior leads. Chest x-ray film, personally reviewed by me, shows some hyperinflation. ASSESSMENT: 1. Anterior chest wall pain in a patient with known coronary artery disease with negative troponin, nonspecific EKG. 2. Acute renal failure, likely prerenal, in a patient who was receiving Lasix for a low ejection fraction. Recent EF appears to be normal following the bypass. 3. Coronary artery disease. 4. Chronic obstructive pulmonary disease in an ex-smoker. PLAN: Cardiology was consulted. Home medications are resumed. Will give patient IV fluids. Hold off the Lasix for right now. Patient does have an appointment with Nephrology that she had to reschedule. Will check patient's UA and repeat electrolytes tomorrow. Care was discussed the patient and her at the bedside. Questions were answered. MMODL / IJN: [id number] /
[2018-09-03] MEDS ORDERED: ATORVASTATIN 40 MG TAB PO SCH (21:00)
[2018-09-03] MEDS ORDERED: FUROSEMIDE 20 MG TAB PO SCH (21:00)
[2018-09-04] MEDS: LACTATED RINGERS 1,000 ML IV SCH (01:53)
[2018-09-04 07:54] VITALS: RESP 18
[2018-09-04] MEDS: IPRATROPIUM-ALBUTEROL 3 ML NEB INHALATION SCH ×3 (07:55→15:35)
[2018-09-04] MEDS: SYMBICORT 160-4.5 MCG INHALER INHALATION SCH (07:56)
[2018-09-04] MEDS: CARVEDILOL 12.5 MG TAB PO SCH ×2 (08:33→08:36)
[2018-09-04] MEDS: ASPIRIN 81 MG PO SCH (08:36)
[2018-09-04] MEDS: ACETAMINOPHEN TAB 325 MG TAB PO PRN (09:18)
[2018-09-04 09:34] LABS: Albumin 3.4 g/dL (3.5-5.0); Calcium 9.1 mg/dL (8.4-10.2); Potassium 4.9 mmol/L (3.5-5.1); Total Bilirubin 0.4 mg/dL (0.2-1.3); Total Protein 6.3 g/dL (6.3-8.2)
[2018-09-04 11:48] VITALS: PULSE 70; TEMP 98.1
[2018-09-04 15:55] VITALS: BP 139/72
--- NOTE | 2018-09-05 11:14 | DS ---
DISCHARGE SUMMARY DATE OF ADMISSION: 09/02/2018 DATE OF DISCHARGE: 09/04/2018 FINAL DIAGNOSES: 1. Acute renal failure likely prerenal from patient being on Lasix. 2. Chest wall pain probably musculoskeletal, anterior chest wall pain. 3. Coronary artery disease. 4. Chronic obstructive pulmonary disease in an ex-smoker. HOSPITAL COURSE: This patient presented with chest pain felt to be musculoskeletal/noncardiac. Patient was found to be in acute renal failure. Creatinine was 1.68. Patient previously had low ejection fraction but after intervention in July, patient's ejection fraction has come back up. Patient is given IV fluids. Lasix was discontinued. Creatinine did come down to 1.01. Care was discussed with the patient and sister. Also patient was seen by Dr. Lin from Cardiology, no further intervention. PHYSICAL EXAMINATION: Temperature 98.1, pulse 72, respiration 18, blood pressure 139/72. LUNGS: Slightly decreased breath sounds. CARDIOVASCULAR: First and second sound. INVESTIGATION: BUN 23, creatinine 1.01. DISCHARGE MEDICATIONS: 1. Symbicort 160/4.5 two puffs b.i.d. 2. Tylenol 325 p.o. q.4 p.r.n. 3. DuoNeb q.i.d. 4. Lipitor 40 mg q.h.s. 5. Coreg 12.5 p.o. b.i.d. 6. Aspirin 81 mg p.o. daily. 7. Nitrostat 0.4 sublingual q.5 p.r.n. FOLLOWUP: Follow up with Dr. Bass on 09/11/2018. Follow up with Dr. Ling in 3 days. MMODL / BAUDILION: [id number] /
== END 2018-09-04 17:10 | disposition home or self-care (01) ==
LOC: EC 20:06 → 1SOBS 22:48
PROVIDERS: ADMIT Hospitalist; ATTEND Hospitalist
DX: R07.89 Other chest pain (principal); N17.9 Acute kidney failure, unspecified; I25.10 Atherosclerotic heart disease of native coronary artery without angina pectoris; J44.9 Chronic obstructive pulmonary disease, unspecified; I10 Essential (primary) hypertension; L40.9 Psoriasis, unspecified; M41.9 Scoliosis, unspecified; E55.9 Vitamin D deficiency, unspecified; E03.9 Hypothyroidism, unspecified; I83.90 Asymptomatic varicose veins of unspecified lower extremity; R51 Headache; R53.83 Other fatigue; R42 Dizziness and giddiness; I73.9 Peripheral vascular disease, unspecified; I25.5 Ischemic cardiomyopathy; E78.5 Hyperlipidemia, unspecified; R79.89 Other specified abnormal findings of blood chemistry; F41.9 Anxiety disorder, unspecified; M19.042 Primary osteoarthritis, left hand; M19.041 Primary osteoarthritis, right hand; Z79.899 Other long term (current) drug therapy; Z79.51 Long term (current) use of inhaled steroids; Z88.5 Allergy status to narcotic agent; I25.2 Old myocardial infarction; Z85.3 Personal history of malignant neoplasm of breast; Z95.1 Presence of aortocoronary bypass graft; Z90.11 Acquired absence of right breast and nipple; Z92.3 Personal history of irradiation; Z92.21 Personal history of antineoplastic chemotherapy; Z95.2 Presence of prosthetic heart valve; Z87.891 Personal history of nicotine dependence; Z86.79 Personal history of other diseases of the circulatory system; Z87.2 Personal history of diseases of the skin and subcutaneous tissue; Z83.3 Family history of diabetes mellitus; Z82.49 Family history of ischemic heart disease and other diseases of the circulatory system; Z82.3 Family history of stroke
CPT/HCPCS: 96366; 96376; 96365; 99285; 36415; 94640 ×3; 93005; 80061; 80053 ×2; 83735; 84484 ×2; 85025; 85610; 85730; 71046; G0378 ×3; J1644 ×2

== ENCOUNTER → 2018-10-10 | Outpatient (CLI) | payer MEDICARE ==
[2018-10-10 10:17] LABS: Anisocytosis Slight; HCT 41.5 % (34.0-46.0); HGB 13.2 gm/dL (11.4-16.0); Hypochromasia Slight; MCH 31.1 pg (25.0-35.0); MCHC 31.8 g/dL (31.0-37.0); MCV 97.7 fL (80.0-100.0); Macrocytosis Slight; Mean Platelet Volume 9.4; Platelet Count 232 k/uL (150-450); RBC 4.24 m/uL (3.80-5.40); RDW 16.6 % (11.5-15.5); WBC 8.9 k/uL (3.8-10.6)
[2018-10-10 15:56] LABS: Iron Saturation 19.09 (12.00-45.00)
[2018-10-10 16:03] LABS: Vitamin D 25 Hydroxy 33.6 ng/mL (30.0-100.0)
[2018-10-10 16:25] LABS: Albumin 4.3 g/dL (3.80-4.90); Albumin/Globulin Ratio 1.79 (1.60-3.17); Anion Gap 8.8 mmol/L (4.00-12.00); Calcium 9.3 mg/dL (8.7-10.3); Carbon Dioxide 26.2 mmol/L (21.6-31.8); Globulin 2.4 g/dL (1.6-3.3); LDL Cholesterol,Calculated 83.8 mg/dL (0.0-131.0); Magnesium 2.2 mg/dL (1.5-2.4); Phosphorus 4.5 mg/dL (2.4-5.1); Potassium 4.4 mmol/L (3.5-5.5); Total Bilirubin 0.5 mg/dL (0.3-1.2); Total Protein 6.7 g/dL (6.2-8.2); Uric Acid 6.2 mg/dL (2.9-7.7); VLDL Calculation 28.2 mg/dL (5.00-40.00)
[2018-10-10 17:03] LABS: Parathyroid Hormone Intact 46.6 pg/mL (14.0-72.0)
[2018-10-10 17:53] LABS: Creatinine,Urine Random 18.5 mg/dL
[2018-10-10 18:21] LABS: Total Protein,Urine Random <4.0 mg/dL (0.0-13.5)
== END ==
LOC: LABWHC1 08:40
PROVIDERS: ATTEND Nurse Practitioner Family
DX: E78.2 Mixed hyperlipidemia (principal); I25.5 Ischemic cardiomyopathy; N17.9 Acute kidney failure, unspecified; D64.9 Anemia, unspecified; E21.3 Hyperparathyroidism, unspecified; E55.9 Vitamin D deficiency, unspecified; M10.9 Gout, unspecified; R80.9 Proteinuria, unspecified
CPT/HCPCS: 36415; 80053; 80061; 82306; 82570; 82728; 83540; 83550; 83735; 83970; 84100; 84156; 84550; 85027

== ENCOUNTER → 2018-10-22 | Outpatient (CLI) | payer MEDICARE ==
[2018-10-22 17:53] LABS: Calcium 9.3 mg/dL (8.7-10.3); Potassium 4.4 mmol/L (3.5-5.5)
== END ==
LOC: LABWHC1 09:12
PROVIDERS: ATTEND Nurse Practitioner Family
DX: N17.9 Acute kidney failure, unspecified (principal)
CPT/HCPCS: 36415; 80048

== ENCOUNTER → 2018-11-04 | Day surgery (SDC) | payer MEDICARE ==
[2018-10-30 13:45] VITALS: BMI 25.0
[~2018-11-04] MED LIST changes: -ALBUMIN HUMAN 25% 50 ML IV ONE; +ALPRAZolam 0.25 MG TAB PO ONE; +ALPRAZolam 0.25 MG TAB PO PRN; +ASPIRIN 81 MG ONE; +ASPIRIN 81 MG PO ONE; -ATORVASTATIN 10 MG TAB PO ONE; -CALCIUM CHLORIDE 100 MG/ML 10 ML SYRINGE IV ONE; -CARDIOPLEGIC SOLN (K+ 16 MEQ/L 1,000 ML with SODIUM BICARB (1 MEQ/ML) 20 ML, LIDOCAINE ... PERFUSION ONE; -CHLORHEXIDINE GLUCONATE 15 ML CUP MUCOUS MEM ONE; -CLEVIDIPINE BUTYRATE 25 MG in EMPTY BAG 1 BAG IV ONE; -HEPARIN SODIUM 1,000 UN/ML (10ML VL) IV ONE; -HEPARIN SODIUM,PORCINE 5,000 UNIT in SODIUM CHLORIDE 0.9% 500 ML 500 ML IV ONE; -INSULIN REGULAR 100 UNIT in SODIUM CHLORIDE 0.9% 100 ML IV ONE; +IOPAMIDOL-250 100ML BTL INTRAARTER ONE; +IOPAMIDOL-250 50ML BTL INTRAARTER ONE; -LACTATED RINGERS 1,000 ML IV ONE; +LIDOCAINE 1% INJ 10MG/ML (20 ML MDV) SQ ONE; -MAGNESIUM SULFATE MG 500 MG/ML IV ONE; -MANNITOL 25% 12.5 GM/50 ML VIAL IV ONE; -METOPROLOL TARTRATE 12.5 MG TAB PO ONE; +MIDAZOLAM (PF) 2 MG/2 ML VIAL IVP ONE; -NITROGLYCERIN SL TABS 0.4 MG TAB SUBLINGUAL ONE; -NITROGLYCERIN-D5W PMX 25 MG/250 ML BTL IV ONE; -NITROGLYCERIN-D5W PMX 50 MG in DEXTROSE/WATER 1 250ML.BAG IV ONE; -NOREPINEPHRINE 4 MG in SODIUM CHLORIDE 0.9% 250 ML IV ONE; -PAPAVERINE 360 MG in SODIUM CHLORIDE 0.9% 90 ML IV ONE; -PHENYLEPHRINE 40 MG in SODIUM CHLORIDE 0.9% 250 ML IV ONE; -PHENYLEPHRINE-0.9% NACL SYG 1 MG/10 ML SYRINGE IV ONE; -PROPOFOL 1,000 MG/100 ML VIAL IV ONE; -PROTAMINE SULFATE 10 MG/ML 25 ML VIAL IV ONE; -PROTAMINE SULFATE 250 MG in EMPTY BAG 1 BAG IV ONE; -SODIUM BICARB 8.4% 50 ML SYR (1 MEQ/ML) IV ONE; +SODIUM CHLORIDE 0.9% 1,000 ML in EMPTY BAG 1 BAG IV ONE; -TRANEXAMIC ACID 2,000 MG in SODIUM CHLORIDE 0.9% 180 ML IV ONE; -ceFAZolin 1,000 MG in SODIUM CHLORIDE 0.9% IRRIGATIO 1,000 ML IRRIGATION ONE; -ceFAZolin 2,000 MG in SODIUM CHLORIDE 0.9% 30 ML IVPB ONE
[2018-11-04 07:09] VITALS: RESP 16
--- NOTE | 2018-11-04 07:14 | P.GSHP ---
History of Present Illness H&P Date: 11/04/18 Chief Complaint: right lower extremity pain 73-year-old female originally presented to the office secondary to right lower extremity claudication and toe wound presents today for aortogram with bilateral lower extremity runoff. She states she is unable to ambulate greater than 30 feet without significant pain in her right calf. She is also complaining of pain in her feet throughout the night. She denies any fevers, chills, chest pain or shortness of breath. Arterial Doppler performed in the office demonstrated ABIs of 0.52 on the right and 0.60 on the left. She was scheduled couple months ago but had significant renal insufficiency and therefore was seen by her stamping press operator before she was cleared for angiogram. - Review of Systems All systems: negative (Right foot numbness.) Past Medical History Past Medical History: Coronary Artery Disease (CAD), Cancer, COPD, Hypertension, Myocardial Infarction ([place]), Renal Disease, Skin Disorder, Thyroid Disorder, Vascular Disorder Additional Past Medical History / Comment(s): Hx Right Breast cancer with mastectomy, radiation & chemotherapy 1998, scoliosis of the spine, Hx Psoriasis. Dry Gangrene right 4th toe, Varicose veins., Last Myocardial Infarction Date:: 10/2017 History of Any Multi-Drug Resistant Organisms: None Reported Past Surgical History: Breast Surgery, Cardiac Valve Replacement, Coronary Bypass/CABG, Heart Catheterization Additional Past Surgical History / Comment(s): Right mastectomy. CABG 5 vessel 07/07/18. Past Anesthesia/Blood Transfusion Reactions: No Reported Reaction Additional Past Anesthesia/Blood Transfusion Reaction / Comment(s): NO HX OF BLOOD TRANSFUSION. Smoking Status: Former smoker - Past Family History Father Family Medical History: Coronary Artery Disease (CAD), CVA/TIA, Hypertension, Myocardial Infarction ([place]) Mother Family Medical History: Coronary Artery Disease (CAD), CVA/TIA, Diabetes Mellitus, Hypertension, Myocardial Infarction ([place]) Additional Family Medical History / Comment(s): pace maker Medications and Allergies Home Medications Medication Instructions Recorded Confirmed Type Budesonide-Formot 160-4.5 Mcg 2 puff INHALATION RT-BID #1 inhaler 10/29/17 10/30/18 Rx [Symbicort 160-4.5 Mcg Inhaler] Acetaminophen Tab [Tylenol] 325 mg PO Q4HR PRN tab 07/16/18 10/30/18 Rx Atorvastatin [Lipitor] 40 mg PO HS 09/02/18 10/30/18 History Carvedilol 12.5 mg PO BID 09/02/18 10/30/18 History Aspirin 81 mg PO DAILY chew 09/04/18 10/30/18 Rx Nitroglycerin Sl Tabs [Nitrostat] 0.4 mg SUBLINGUAL Q5M PRN #25 tab 09/04/18 10/30/18 Rx Furosemide [Lasix] 20 mg PO DAILY 10/30/18 10/30/18 History Gabapentin [Neurontin] 300 mg PO TID 10/30/18 10/30/18 History Allergies Allergy/AdvReac Type Severity Reaction Status Date / Time morphine Allergy Hallucinati Verified 10/30/18 13:39 ons Surgical - Exam Palpable femoral pulses bilaterally. Nonpalpable DP or PT pulse in the right lower extremity. Second and fourth toes with discoloration. Slow capillary refill. - General well developed, well nourished, no distress - Eyes PERRL, normal ocular movement - ENT normal pinna, normal nares - Neck no masses, no bruits - Cardiovascular Rhythm: regular - Abdomen Abdomen: soft, non tender - Genitourinary normal external genitalia - Integumentary no rash - Neurologic normal coordination - Psychiatric oriented to time, oriented to person, oriented to place, speech is normal Assessment and Plan Assessment: 1. disabling right lower extremity claudication 2. right lower extremity foot/toe wound Plan: Aortogram with bilateral lower extremity runoff possible right lower extremity revascularization.
--- NOTE | 2018-11-04 08:36 | P.OP ---
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 Anesthesia: local, other (moderate sedation x 21 mins) Surgeon: José Antonio García Estimated Blood Loss (ml): 5 Pathology: none sent Condition: stable Disposition: same day Indications for Procedure: 73-year-old female who originally presented to the office secondary to right lower extremity pain with ambulation stating she can only walk approximately 30 feet without significant pain in her calf. She is also experiencing rest pain which kept her up at night. She developed a wound on her second toe at the distal aspect which is consistent with dry gangrene. She did have arterial Doppler with ABIs which demonstrated 0.52 on the right and 0.60 on the left. She presents today for aortogram with bilateral lower extremity angiograms. Operative Findings: Right common femoral artery athersclerotic disease with 50% stenosis Right SFA proximal SITE PROJECT MANAGER with reconstitution mid thigh Right PT/Peroneal artery SITE PROJECT MANAGER without reconstitution Left common femoral artery occlusive disease with 60% stenosis Left SFA SITE PROJECT MANAGER with reconstitution at above knee popliteal artery Left AT/Peroneal artery SITE PROJECT MANAGER without reconstitution Abdominal aortic ectasia Description of Procedure: After written informed consent was obtained the patient all risks benefits competitions were described the patient is brought to the Electron Beam Photo Mask Maker and laid in a supine position. The area of the groins were prepped and draped in usual sterile fashion. Procedure was performed under moderate sedation which was monitored with continuous pulse ox and EKG monitoring. Utilizing ultrasound the right common femoral artery was visualized shown to be diminutive but pulsatile with minimal disease therefore was cannulated with a multipurpose needle and pulsatile blood flow was visualized. Guidewire was placed and utilizing Seldinger technique a 5-Qatari sheath was placed in normal fashion. 035 Glidewire was then placed within the aorta followed by pigtail catheter. Aortogram was obtained followed by bilateral lower extremity angiograms with step-off in normal fashion. Once completed there was bilateral SFA occlusions noted and therefore oblique angles were obtained to demonstrate any takeoff from the common femoral artery. Once completed the guidewire and catheters were removed sheath was removed and pressure was placed for hemostasis. Hemostasis was obtained and the groin was dressed with 4 x 4's and OpSite. Patient t olerated procedure well was sent to recovery.
--- NOTE | 2018-11-04 09:07 | IR ---
EXAMINATION TYPE: IR angio abdominal w runoff DATE OF EXAM: 11/04/2018 CLINICAL HISTORY: 73-year-old female TECHNIQUE: Fluoroscopy. COMPARISON: None. FINDINGS: Fluoroscopic guidance was provided during abdominal aortic injection and bilateral lower extremity ru noff procedure performed by Dr. García. A total of 0.9 minutes of fluoroscopic time was utilized du ring the procedure and 132 spot images was acquired. Notes indicate that manual pressure was applied to the right groin. IMPRESSION: Aortic injection with bilateral lower extremity run off. Please refer to vascular surgery procedure n ote for complete findings and impression.
[2018-11-04 16:09] VITALS: BP 135/72; PULSE 83
== END | disposition home or self-care (01) ==
LOC: CATHCVL 05:49
PROVIDERS: ATTEND Surgery
DX: I70.211 Atherosclerosis of native arteries of extremities with intermittent claudication, right leg (principal); I70.92 Chronic total occlusion of artery of the extremities; S91.106A Unspecified open wound of unspecified lesser toe(s) without damage to nail, initial encounter; M41.9 Scoliosis, unspecified; N28.9 Disorder of kidney and ureter, unspecified; I77.811 Abdominal aortic ectasia; L40.9 Psoriasis, unspecified; J44.9 Chronic obstructive pulmonary disease, unspecified; I25.2 Old myocardial infarction; I25.10 Atherosclerotic heart disease of native coronary artery without angina pectoris; I10 Essential (primary) hypertension; E07.9 Disorder of thyroid, unspecified; Z82.49 Family history of ischemic heart disease and other diseases of the circulatory system; Z87.891 Personal history of nicotine dependence; Z85.3 Personal history of malignant neoplasm of breast; Z95.1 Presence of aortocoronary bypass graft; Z90.11 Acquired absence of right breast and nipple; Z95.2 Presence of prosthetic heart valve; Z79.82 Long term (current) use of aspirin; Z79.899 Other long term (current) drug therapy; Z88.5 Allergy status to narcotic agent
CPT/HCPCS: 36200; 75625; 75716; 76937; C1769 ×3; C1894; J2001; Q9966 ×2; J2250

== ENCOUNTER 2018-11-20 20:40 | Emergency (ER) | payer MEDICARE ==
[2018-11-20 20:46] VITALS: RESP 18
[2018-11-20] MEDS ORDERED: HYDROcodone/APAP 5-325MG 1 EACH TAB PO STA (22:20)
--- NOTE | 2018-11-20 22:24 | ED ---
Extremity Problem HPI - General Chief complaint: Extremity Problem,Nontraumatic Stated complaint: foot swelling Time Seen by Provider: 11/20/18 21:39 Source: patient, family Mode of arrival: wheelchair Limitations: no limitations - History of Present Illness Initial comments: This patient is a 73-year-old woman with history of peripheral vascular disease who presents to be evaluated for right foot pain and swelling. She states that she has been seen by vascular surgery, they have done a mapping of the circulation, and she is scheduled to have intervention when the surgeon returns from vacation this week. The patient states she is having a little bit of an increase in her pain and swelling and was hoping have some relief tonight. She has not noted any systemic symptoms, including no fever or chills, no palpitations, chest pain or dyspnea. MD Complaint: extremity pain, extremity swelling -: hour(s) Location: right, toe History of Same: Yes Radiation: none Quality: aching Consistency: constant Improves with: nothing Worsens with: nothing Associated Symptoms: denies other symptoms - Related Data Home Medications Medication Instructions Recorded Confirmed Atorvastatin [Lipitor] 40 mg PO HS 09/02/18 11/20/18 Carvedilol 12.5 mg PO DAILY 09/02/18 11/20/18 Furosemide [Lasix] 20 mg PO DAILY 10/30/18 11/20/18 Gabapentin [Neurontin] 300 mg PO TID 10/30/18 11/20/18 ALPRAZolam [Xanax] 0.25 mg PO HS PRN 11/20/18 11/20/18 Previous Rx's Medication Instructions Recorded Budesonide-Formot 160-4.5 Mcg 2 puff INHALATION RT-BID #1 inhaler 10/29/17 [Symbicort 160-4.5 Mcg Inhaler] Aspirin 81 mg PO DAILY chew 09/04/18 Nitroglycerin Sl Tabs [Nitrostat] 0.4 mg SUBLINGUAL Q5M PRN #25 tab 09/04/18 Hydrocodone/Acetaminophen [Greenwood 1 each PO Q6HR PRN #20 tab 11/21/18 5-325] Allergies Allergy/AdvReac Type Severity Reaction Status Date / Time morphine Allergy Hallucinati Verified 11/20/18 21:29 ons Review of Systems ROS Statement: Those systems with pertinent positive or pertinent negative responses have been documented in the HPI. ROS Other: All systems not noted in ROS Statement are negative. Constitutional: Denies: fever, chills Respiratory: Denies: cough, dyspnea Cardiovascular: Denies: chest pain, palpitations, edema, syncope Gastrointestinal: Denies: abdominal pain, vomiting, diarrhea Skin: Reports: change in color (Patient has chronically dusky toes). Denies: rash Neurological: Denies: headache, weakness, numbness, paresthesias Past Medical History Past Medical History: Coronary Artery Disease (CAD), Cancer, COPD, Hypertension, Myocardial Infarction ([place]), Renal Disease, Skin Disorder, Thyroid Disorder, Vascular Disorder Additional Past Medical History / Comment(s): Hx Right Breast cancer with mastectomy, radiation & chemotherapy 1998, scoliosis of the spine, Hx Psoriasis. Dry Gangrene right 4th toe, Varicose veins., Last Myocardial Infarction Date:: 10/2017 History of Any Multi-Drug Resistant Organisms: None Reported Past Surgical History: Breast Surgery, Cardiac Valve Replacement, Coronary Bypass/CABG, Heart Catheterization Additional Past Surgical History / Comment(s): Right mastectomy. CABG 5 vessel 07/07/18. Past Anesthesia/Blood Transfusion Reactions: No Reported Reaction Additional Past Anesthesia/Blood Transfusion Reaction / Comment(s): NO HX OF BLOOD TRANSFUSION. Past Psychological History: No Psychological Hx Reported Smoking Status: Former smoker Past Alcohol Use History: None Reported, Occasional Past Drug Use History: None Reported - Past Family History Father Family Medical History: Coronary Artery Disease (CAD), CVA/TIA, Hypertension, Myocardial Infarction ([place]) Mother Family Medical History: Coronary Artery Disease (CAD), CVA/TIA, Diabetes Mellitus, Hypertension, Myocardial Infarction ([place]) Additional Family Medical History / Comment(s): pace maker General Exam Limitations: no limitations General appearance: alert, in no apparent distress Head exam: Present: atraumatic, normocephalic Eye exam: Present: normal appearance. Absent: scleral icterus, conjunctival injection Respiratory exam: Present: normal lung sounds bilaterally. Absent: respiratory distress, wheezes, rales, rhonchi, stridor Cardiovascular Exam: Present: regular rate, normal rhythm, normal heart sounds. Absent: systolic murmur, diastolic murmur, rubs, gallop GI/Abdominal exam: Present: soft. Absent: distended, tenderness, guarding, rebound Extremities exam: Present: other (The patient has dry gangrene to the distal tip of the right fourth toe. Toes 2, 3 and 5 have some duskiness. Patient has motor and sensory function) Neurological exam: Present: alert. Absent: motor sensory deficit Skin exam: Present: warm, dry, intact, other (See extremity exam.) Course Vital Signs 11/20/18 11/20/18 20:42 23:01 Temperature 98 F 97.2 F L Pulse Rate 93 95 Respiratory 18 18 Rate Blood Pressure 143/63 136/80 O2 Sat by Pulse 92 L 90 L Oximetry Medical Decision Making - Lab Data Result diagrams: 11/20/18 23:45 11/20/18 23:45 Lab Results 11/20/18 11/20/18 11/20/18 Range/Units 23:45 23:45 23:45 WBC 8.8 (3.8-10.6) k/uL RBC 4.16 (3.80-5.40) m/uL Hgb 13.2 (11.4-16.0) gm/dL Hct 42.9 (34.0-46.0) % MCV 103.2 H D (80.0-100.0) fL MCH 31.7 (25.0-35.0) pg MCHC 30.7 L (31.0-37.0) g/dL RDW 15.6 H (11.5-15.5) % Plt Count 180 (150-450) k/uL Neutrophils % 57 % Lymphocytes % 31 % Monocytes % 6 % Eosinophils % 3 % Basophils % 1 % Neutrophils # 5.0 (1.3-7.7) k/uL Lymphocytes # 2.7 (1.0-4.8) k/uL Monocytes # 0.5 (0-1.0) k/uL Eosinophils # 0.2 (0-0.7) k/uL Basophils # 0.1 (0-0.2) k/uL Hypochromasia Moderate Macrocytosis Moderate Sodium 139 (137-145) mmol/L Potassium 4.0 (3.5-5.1) mmol/L Chloride 105 (98-107) mmol/L Carbon Dioxide 28 (22-30) mmol/L Anion Gap 6 mmol/L BUN 26 H (7-17) mg/dL Creatinine 0.87 (0.52-1.04) mg/dL Est GFR (CKD-EPI)AfAm 77 (>60 ml/min/1.73 sqM) Est GFR (CKD-EPI)NonAf 67 (>60 ml/min/1.73 sqM) Glucose 93 (74-99) mg/dL Plasma Lactic Acid Kaleb 1.5 (0.7-2.0) mmol/L Calcium 9.5 (8.4-10.2) mg/dL Disposition Clinical Impression: Ischemic pain of right foot Disposition: HOME SELF-CARE Condition: Fair Instructions (If sedation given, give patient instructions): Peripheral Vascular Disease (ED) Prescriptions: Hydrocodone/Acetaminophen [Greenwood 5-325] 1 each PO Q6HR PRN #20 tab PRN Reason: Pain Is patient prescribed a controlled substance at d/c from ED?: No Referrals: Toby Lantigua MD [Primary Care Provider] - 1-2 days
[2018-11-20 23:04] VITALS: BP 136/80; PULSE 95; TEMP 97.2
[2018-11-21 00:22] LABS: Basophils # (A) 0.1 k/uL (0-0.2); Basophils % (A) 1 %; Eosinophils # (A) 0.2 k/uL (0-0.7); Eosinophils % (A) 3 %; HCT 42.9 % (34.0-46.0); HGB 13.2 gm/dL (11.4-16.0); Hypochromasia Moderate; Lymphocytes # (A) 2.7 k/uL (1.0-4.8); Lymphocytes % (A) 31 %; MCH 31.7 pg (25.0-35.0); MCHC 30.7 g/dL (31.0-37.0); Macrocytosis Moderate; Mean Platelet Volume 7.9; Monocytes # (A) 0.5 k/uL (0-1.0); Monocytes % (A) 6 %; Neutrophils % (A) 57 %; Platelet Count 180 k/uL (150-450); RBC 4.16 m/uL (3.80-5.40); RDW 15.6 % (11.5-15.5); WBC 8.8 k/uL (3.8-10.6)
[2018-11-21 00:33] LABS: Calcium 9.5 mg/dL (8.4-10.2)
[2018-11-21 00:43] LABS: MCV 103.2 fL (80.0-100.0)
== END 2018-11-21 01:41 | disposition home or self-care (01) ==
LOC: EC 20:40
DX: M79.671 Pain in right foot (principal); M79.89 Other specified soft tissue disorders; I25.10 Atherosclerotic heart disease of native coronary artery without angina pectoris; I10 Essential (primary) hypertension; I25.2 Old myocardial infarction; Z85.3 Personal history of malignant neoplasm of breast; Z87.891 Personal history of nicotine dependence; Z79.899 Other long term (current) drug therapy; Z88.5 Allergy status to narcotic agent; Z95.1 Presence of aortocoronary bypass graft; Z95.818 Presence of other cardiac implants and grafts; Z95.2 Presence of prosthetic heart valve; Z53.29 Procedure and treatment not carried out because of patient's decision for other reasons
CPT/HCPCS: 36415; 80048; 83605; 85025; 99283

== ENCOUNTER → 2018-11-20 | Outpatient (CLI) | payer MEDICARE ==
--- NOTE | 2018-11-20 08:42 | US ---
EXAMINATION TYPE: US duplex aorta DATE OF EXAM: 11/20/2018 COMPARISON: IR angio with runoff CLINICAL HISTORY: Z13.6 screening for cardiovascular disorders; ectatic aorta EXAM MEASUREMENTS: Abdominal Aorta: Proximal: 2.3cm Transverse Mid: 2.5cm Transverse Distal: 2.5cm Transverse Bifurcation: right MILKA = 1.0cm Transverse and Left MILKA = 0.8cm, Hyperechoic intimal wall thickening is noted throughout aorta with ectatic appearance. IMPRESSION: 1. Intimal thickening with no evidence of sizable aneurysm (3 cm or greater).
== END ==
LOC: RADUSWWP 07:56
PROVIDERS: ATTEND Family Medicine
DX: I77.89 Other specified disorders of arteries and arterioles (principal)
CPT/HCPCS: 93979

== ENCOUNTER → 2018-12-17 | Outpatient (CLI) | payer MEDICARE | END | disposition home or self-care (01) | LOC: LABWHC1 09:04 | PROVIDERS: ATTEND Nurse Practitioner Adult Health | DX: E78.2 Mixed hyperlipidemia (principal) | CPT/HCPCS: 36415; 80061; 84450; 84460 ==

== ENCOUNTER → 2018-12-17 | Outpatient (CLI) | payer MEDICARE ==
[2018-12-17 09:58] LABS: Anisocytosis Slight; Basophils # (A) 0.1 k/uL (0-0.2); Basophils % (A) 1 %; Eosinophils # (A) 0.2 k/uL (0-0.7); Eosinophils % (A) 2 %; HCT 42.3 % (34.0-46.0); HGB 13.4 gm/dL (11.4-16.0); Hypochromasia Slight; Lymphocytes # (A) 2.3 k/uL (1.0-4.8); Lymphocytes % (A) 24 %; MCH 31.8 pg (25.0-35.0); MCHC 31.6 g/dL (31.0-37.0); MCV 100.6 fL (80.0-100.0); Macrocytosis Slight; Mean Platelet Volume 8.1; Monocytes # (A) 0.4 k/uL (0-1.0); Monocytes % (A) 4 %; Neutrophils # (A) 6.3 k/uL (1.3-7.7); Neutrophils % (A) 67 %; Platelet Count 212 k/uL (150-450); RBC 4.21 m/uL (3.80-5.40); WBC 9.5 k/uL (3.8-10.6)
[2018-12-17 10:23] LABS: Potassium 4.3 mmol/L (3.5-5.1)
== END | disposition home or self-care (01) ==
LOC: LABPAT 09:01
PROVIDERS: ATTEND Surgery
DX: Z01.812 Encounter for preprocedural laboratory examination (principal); I74.3 Embolism and thrombosis of arteries of the lower extremities
CPT/HCPCS: 36415; 80051; 80061; 82565; 84450; 84460; 84520; 85025

== ENCOUNTER 2018-12-25 13:30 | Inpatient (IN) | payer MEDICARE ==
[~2018-12-25 13:30] MED LIST changes: -ALPRAZolam 0.25 MG TAB PO ONE; -ASPIRIN 325 MG TAB PO ONE; +ASPIRIN 325 MG TAB PO STA; -ASPIRIN 81 MG ONE; -ASPIRIN 81 MG PO ONE; -IOPAMIDOL-250 100ML BTL INTRAARTER ONE; -IOPAMIDOL-250 50ML BTL INTRAARTER ONE; -LIDOCAINE 1% INJ 10MG/ML (20 ML MDV) SQ ONE; -MIDAZOLAM (PF) 2 MG/2 ML VIAL IVP ONE; -SODIUM CHLORIDE 0.9% 1,000 ML IV ONE; +ceFAZolin IN SWFI 2 GM/20 ML SYRINGE IVP ONE
[2018-12-25] MEDS: MIDAZOLAM (PF) 2 MG/2 ML VIAL IV ONE ×2 (13:37→14:09)
[2018-12-25] MEDS: fentaNYL (PF) 50 MCG/ML 2 ML AMP IV ONE ×3 (13:37→14:19)
[2018-12-25] MEDS ORDERED: LIDOCAINE 1% INJ 10MG/ML (20 ML MDV) SQ ONE (13:41)
[2018-12-25] MEDS ORDERED: ceFAZolin IN SWFI 2 GM/20 ML SYRINGE IVP ONE (13:49)
[2018-12-25] MEDS ORDERED: HEPARIN SODIUM 1,000 UN/ML (10ML VL) IV ONE (13:55)
[2018-12-25] MEDS ORDERED: IOPAMIDOL-250 100ML BTL INTRAARTER ONE (14:20)
[2018-12-25] MEDS ORDERED: HYDROmorphone 1 MG/ML 1 ML SYRINGE IVP ONE (14:31)
[2018-12-25] MEDS ORDERED: CLOPIDOGREL 75 MG TAB PO ONE (15:00)
[2018-12-25] MEDS ORDERED: PROTAMINE SULFATE 10 MG/ML 5 ML VIAL IV ONE (15:10)
[2018-12-25] MEDS ORDERED: IOPAMIDOL-370 100ML BTL INJ ONE (15:12)
[2018-12-25] MEDS ORDERED: HYDROcodone/APAP 5-325MG 1 EACH TAB PO PRN (15:41)
--- NOTE | 2018-12-25 15:41 | P.GSHP ---
History of Present Illness H&P Date: 12/25/18 Chief Complaint: Right lower extremity pain 73 year old female with history of right lower extremity disabiling claudication only able to walk 30 yards and rest pain presents for endovascular revascularization of the right lower extremity. Patient had angiogram that showed EQUIPMENT PROCESSER STORAGE of right SFA with reconstitution at the above knee popliteal artery. She denies any fevers, chills, nausea, vomiting, chest pain or shortness of breath. - Review of Systems All systems: negative (for what is mentioned in the PMH and HPI) Past Medical History Past Medical History: Coronary Artery Disease (CAD), Cancer, COPD, Hypertension, Myocardial Infarction ([place]), Musculoskeletal Disorder, Renal Disease, Skin Disorder, Thyroid Disorder, Vascular Disorder Additional Past Medical History / Comment(s): Hx Right Breast cancer with mastectomy, radiation & chemotherapy 1998, scoliosis of the spine, Hx Psoriasis. Dry Gangrene right 4th toe, Varicose veins, edema rt foot/ankle., Last Myocardial Infarction Date:: 10/2017 History of Any Multi-Drug Resistant Organisms: None Reported Past Surgical History: Breast Surgery, Cardiac Valve Replacement, Coronary Bypass/CABG, Heart Catheterization Additional Past Surgical History / Comment(s): Right mastectomy. CABG 5 vessel, MITRAL VALVE REPAIR 07/07/18. 11/04/18 Aortogram w/ BLE angiogram Past Anesthesia/Blood Transfusion Reactions: No Reported Reaction Additional Past Anesthesia/Blood Transfusion Reaction / Comment(s): NO HX OF BLOOD TRANSFUSION. Past Psychological History: Anxiety Additional Psychological History / Comment(s): ANXIOUS REGARDING SURGERY. Smoking Status: Former smoker Past Alcohol Use History: Occasional Additional Past Alcohol Use History / Comment(s): Quit smoking (2016), smoked 40 yrs, <1PPD. Past Drug Use History: None Reported - Past Family History Father Family Medical History: Coronary Artery Disease (CAD), CVA/TIA, Hypertension, Myocardial Infarction ([place]) Mother Family Medical History: Coronary Artery Disease (CAD), CVA/TIA, Diabetes Mellitus, Hypertension, Myocardial Infarction ([place]) Additional Family Medical History / Comment(s): pace maker Medications and Allergies Home Medications Medication Instructions Recorded Confirmed Type Budesonide-Formot 160-4.5 Mcg 2 puff INHALATION RT-BID #1 inhaler 10/29/17 12/25/18 Rx [Symbicort 160-4.5 Mcg Inhaler] Atorvastatin [Lipitor] 80 mg PO HS 09/02/18 12/25/18 History Carvedilol 12.5 mg PO DAILY 09/02/18 12/25/18 History Nitroglycerin Sl Tabs [Nitrostat] 0.4 mg SUBLINGUAL Q5M PRN #25 tab 09/04/18 12/22/18 Rx Furosemide [Lasix] 20 mg PO DAILY 10/30/18 12/25/18 History Gabapentin [Neurontin] 300 mg PO TID 10/30/18 12/25/18 History ALPRAZolam [Xanax] 0.25 mg PO DAILY PRN 11/20/18 12/25/18 History Acetaminophen Tab [Tylenol Tab] 325 - 650 mg PO Q4-6H PRN 12/22/18 12/22/18 History Ascorbic Acid [Vitamin C] 250 mg PO DAILY 12/22/18 12/24/18 History Aspirin 81 mg PO HS 12/22/18 12/25/18 History Cholecalciferol (Vitamin D3) 2,000 unit PO DAILY 12/22/18 12/24/18 History [Vitamin D3] Multivitamins, Thera [Multivitamin 1 tab PO DAILY 12/22/18 12/22/18 History (formulary)] Cyanocobalamin [Vitamin B-12] 500 mcg PO DAILY 12/24/18 12/24/18 History Allergies Allergy/AdvReac Type Severity Reaction Status Date / Time morphine Allergy Hallucinati Verified 12/24/18 13:13 ons Surgical - Exam Vital Signs Temp Pulse Resp BP Pulse Ox 97.9 F 79 18 170/70 92 L 12/25/18 12:23 12/25/18 12:23 12/25/18 12:23 12/25/18 12:23 12/25/18 12:23 non palpable DP/PT pulse right lower extremity. 4th toe ischemia with dry gangrene - General well developed, well nourished, no distress - Eyes PERRL, normal ocular movement - ENT normal pinna, normal nares - Neck no masses, no bruits - Respiratory normal expansion - Cardiovascular Rhythm: regular - Abdomen Abdomen: soft, non tender - Integumentary no rash - Neurologic normal coordination, no normal sensation - Psychiatric oriented to time, oriented to person, oriented to place Assessment and Plan Assessment: 1. Right lower extremity disabiling claudication, rest pain and dry gangrene right 4th toe Glynn 5 Plan: To OR for right lower extremity revascularization
--- NOTE | 2018-12-25 15:41 | IR ---
Fluoroscopy HISTORY: Pain 16.3 minutes fluoroscopy time supplied to the referring clinician. 0 intraoperative C-arm images doc ument the procedure. See dictated report from vascular surgery.
[2018-12-25] MEDS ORDERED: NITROGLYCERIN SL TABS 0.4 MG TAB SUBLINGUAL PRN (15:46)
[2018-12-25 16:46] VITALS: BMI 26.1
--- NOTE | 2018-12-25 16:47 | P.OP ---
Date of Procedure: 12/25/18 Preoperative Diagnosis: Right lower extremity disabiling claudication with dry gangrene 4th toe Right SFA STAFF NURSE MIDWIFE Postoperative Diagnosis: Same Procedure(s) Performed: 1. Right lower extremity selective femoral-popliteal and tibial angiogram. 2. Right superficial femoral artery chronic total occlusion crossing with atherectomy with Hawk one device. 3. Percutaneous transluminal balloon angioplasty of the right superficial femoral artery and above-knee popliteal artery 4. Left common femoral artery access under ultrasound guidance Anesthesia: other (Moderate conscious sedation 90 minutes) Surgeon: José Antonio García Estimated Blood Loss (ml): 5 Pathology: none sent Condition: stable Disposition: floor Indications for Procedure: 73-year-old female with history of right lower extremity disabling claudication can only walk 30-40 yards without severe pain in her right calf as well as rest pain. She has had a fourth toe dry gangrene wound for several weeks which will not heal and she presents today for right lower extremity revascularization. She has had angiogram which demonstrates a STAFF NURSE MIDWIFE of the superficial femoral artery with recollateralization at the above-knee popliteal. ABIs were obtained in the office which demonstrated significant atherosclerotic arterial disease involving bilateral lower extremities. Description of Procedure: After written and informed consent was obtained the patient all risks benefits and competitions were described the patient is brought to the Lithographic Stripper and laid in a supine position. The area of the groins were prepped and draped in usual sterile fashion. Moderate conscious sedation was then performed with continuous pulse ox monitoring and EKG monitoring. Local anesthetic was then utilized to infuse overlying the left common femoral artery which was visualized utilizing ultrasound. Under ultrasound the femoral artery was shown to be patent without any significant calcific disease. Utilizing Seldinger technique a 5-Burmese sheath was then placed in normal fashion. Patient was administered heparin and followed with an ACT. 035 Glidewire was then placed and directed into the aorta followed by a RBI catheter and the right iliac artery was accessed with the 035 Glidewire. The RBI catheter was then placed just above the common femoral artery wire was removed and selective angiogram was obtained demonstrating total occlusion at the takeoff of the superficial femoral artery. At that time an 035 Glidewire advantage was then placed the 5-Burmese sheath was removed and replaced with a 7-Burmese rabies sheath 55 cm in length. This was placed just above the femoral artery on the right. Utilizing an 035 Glidewire and quick cross catheter the SFA occlusion was crossed. The reconstitution of the popliteal artery was noted and this was entered with the Glidewire. Quick cross catheter was then placed distal to the lesion and angiogram was obtained demonstrating good intraluminal access below the occlusion. Selective angiogram of the distal tibial arteries was then performed demonstrating two-vessel runoff to the ankle. At that time the 5 mm spider filter was then placed and atherectomy was then performed with the [employer] one LX device. Multiple passes were then performed exte nding from the superficial femoral artery at the takeoff to the popliteal artery above-knee. Once completed angiogram was obtained demonstrating marked improvement of the lumen. Utilizing a 250 cm 5 mm impact balloon balloon angioplasty was then performed throughout the entirety of the superficial femoral artery. Angiogram was then again obtained which demonstrated good brisk flow through the superficial femoral artery extending to the filter and then flow stopped abruptly secondary to plaque within the filter. Filter was then removed in normal fashion. Selective angina gram was once again obtained demonstrating brisk flow through the superficial femoral artery extending to the popliteal demonstrating flow to the foot with two-vessel runoff. There was still some area of stenosis noted at the takeoff of the SFA and therefore an 035 Glidewire was then placed across this lesion followed by a 5 x 80 mm impact balloon. Balloon angioplasty was performed and finally gram was obtained d emonstrating almost complete resolution of the stenosis in the superficial femoral artery. All guidewires and catheters were then removed sheath was also removed and pressure was placed for hemostasis. Hemostasis was obtained the area was cleansed and dressings were placed. The patient tolerated the procedure well and had a palpable distal pulse at the conclusion of the procedure.
[2018-12-25] MEDS: GABAPENTIN 300 MG CAP PO SCH ×2 (17:28→21:32)
[2018-12-25] MEDS: SYMBICORT 160-4.5 MCG INHALER INHALATION SCH (19:21)
[2018-12-25] MEDS ORDERED: ATORVASTATIN 80 MG TAB PO SCH (21:00)
[2018-12-26 00:38] VITALS: RESP 18
[2018-12-26] MEDS: SYMBICORT 160-4.5 MCG INHALER INHALATION SCH (07:43)
[2018-12-26] MEDS: GABAPENTIN 300 MG CAP PO SCH (08:38)
[2018-12-26] MEDS ORDERED: CYANOCOBALAMIN 500 MCG TAB PO SCH (09:00)
[2018-12-26] MEDS ORDERED: ASPIRIN 81 MG PO SCH (09:00)
[2018-12-26] MEDS ORDERED: CHOLECALCIFEROL 1,000 UNIT TAB PO SCH (09:00)
[2018-12-26] MEDS ORDERED: CLOPIDOGREL 75 MG TAB PO SCH (09:00)
[2018-12-26] MEDS ORDERED: CARVEDILOL 12.5 MG TAB PO SCH (09:00)
[2018-12-26] MEDS ORDERED: FUROSEMIDE 20 MG TAB PO SCH (09:00)
[2018-12-26 12:19] VITALS: BP 134/62; PULSE 75; TEMP 97
--- NOTE | 2018-12-26 15:47 | P.CONS ---
History of Present Illness - Reason for Consult Consult date: 12/26/18 Medical management - Chief Complaint Right lower extremity pain - History of Present Illness Patient is a 73-year-old female with a known history of coronary artery disease, CABG and mitral valve repair in June 2018, hypertension, history of [place] and hypothyroidism and peripheral vascular disease was admitted to the hospital due to debilitating right lower extremity claudication symptoms. Patient was only able to walk 30 yards as will start having right lower extremities pain. 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 Otherwise patient denied any complaints of chest pain or shortness of breath. No nausea vomiting or abdominal pain. Patient does complain of leg swelling as well. No recent illnesses. Denied any headache or dizziness or lightheadedness. Patient underwent right lower extremities selective femoral-popliteal and DVT angiogram. Right superficial femoral artery chronic total occlusion crossing with atherectomy with heart one device. Percutaneous transluminal balloon angioplasty of the right superficial femoral artery and above-knee popliteal artery. Left common femoral artery access under ultrasound guidance. Currently leg swelling is better. Right leg pain is improved as well. Recommends to follow-up with as patient with vascular surgery. Review of Systems Constitutional: Patient denies any fever or chills . No generalized weakness or weight loss. Abdomen: Patient denied nausea vomiting and diarrhea and abdominal pain. Cardiovascular: Patient denies any chest pain or short of breath no palpitations. Respiratory: patient denied any cough is from production. No shortness of breath Neurologic: Patient denied any numbness or tingling headache. Musculoskeletal: Patient denies any complaints of joint swelling or deformity. Right lower extremities claudication pain Skin: Negative Psychiatric: Negative Endocrine: No heat or cold intolerance. No recent weight gain. Genitourinary: No dysuria or hematuria. All other 14 point ROS negative except the above Past Medical History Past Medical History: Coronary Artery Disease (CAD), Cancer, COPD, Hypertension, Myocardial Infarction ([place]), Musculoskeletal Disorder, Renal Disease, Skin Disorder, Thyroid Disorder, Vascular Disorder Additional Past Medical History / Comment(s): Hx Right Breast cancer with mastec samantha, radiation & chemotherapy 1998, scoliosis of the spine, Hx Psoriasis. Dry Gangrene right 4th toe, Varicose veins, edema rt foot/ankle., Fem. Pop. 12/25/18 Last Myocardial Infarction Date:: 10/2017 History of Any Multi-Drug Resistant Organisms: None Reported Past Surgical History: Breast Surgery, Cardiac Valve Replacement, Coronary Bypass/CABG, Heart Catheterization Additional Past Surgical History / Comment(s): Right mastectomy. CABG 5 vessel, MITRAL VALVE REPAIR 07/07/18. 11/04/18 Aortogram w/ BLE angiogram Past Anesthesia/Blood Transfusion Reactions: No Reported Reaction Additional Past Anesthesia/Blood Transfusion Reaction / Comm: NO HX OF BLOOD TRANSFUSION. Past Psychological History: Anxiety Additional Psychological History / Comment(s): ANXIOUS REGARDING SURGERY. Smoking Status: Former smoker Past Alcohol Use History: Occasional Additional Past Alcohol Use History / Comment(s): Quit smoking (2017), smoked 40 yrs, <1PPD. Past Drug Use History: None Reported - Past Family History Father Family Medical History: Coronary Artery Disease (CAD), CVA/TIA, Hypertension, Myocardial Infarction ([place]) Mother Family Medical History: Coronary Artery Disease (CAD), CVA/TIA, Diabetes Mellitus, Hypertension, Myocardial Infarction ([place]) Additional Family Medical History / Comment(s): pace maker Medications and Allergies Home Medications Medication Instructions Recorded Confirmed Type Budesonide-Formot 160-4.5 Mcg 2 puff INHALATION RT-BID #1 inhaler 10/29/17 12/25/18 Rx [Symbicort 160-4.5 Mcg Inhaler] Atorvastatin [Lipitor] 80 mg PO HS 09/02/18 12/25/18 History Carvedilol 12.5 mg PO DAILY 09/02/18 12/25/18 History Nitroglycerin Sl Tabs [Nitrostat] 0.4 mg SUBLINGUAL Q5M PRN #25 tab 09/04/18 12/25/18 Rx Furosemide [Lasix] 20 mg PO DAILY 10/30/18 12/25/18 History Gabapentin [Neurontin] 300 mg PO TID 10/30/18 12/25/18 History ALPRAZolam [Xanax] 0.25 mg PO DAILY PRN 11/20/18 12/25/18 History Acetaminophen Tab [Tylenol] 325 - 650 mg PO Q4-6H PRN 12/22/18 12/25/18 History Ascorbic Acid [Vitamin C] 250 mg PO DAILY 12/22/18 12/25/18 History Aspirin 81 mg PO HS 12/22/18 12/25/18 History Cholecalciferol (Vitamin D3) 2,000 unit PO DAILY 12/22/18 12/25/18 History [Vitamin D3] Multivitamins, Thera [Multivitamin 1 tab PO DAILY 12/22/18 12/25/18 History (formulary)] Cyanocobalamin [Vitamin B-12] 500 mcg PO DAILY 12/24/18 12/25/18 History Clopidogrel [Plavix] 75 mg PO DAILY #30 tab 12/26/18 Rx Allergies Allergy/AdvReac Type Severity Reaction Status Date / Time morphine Allergy Hallucinati Verified 12/25/18 16:30 ons Physical Exam Vitals: Vital Signs Temp Pulse Pulse Resp BP Pulse Ox 12/26/18 08:00 97.5 F L 89 18 143/66 93 L 12/26/18 04:00 97.0 F L 76 18 104/64 90 L 12/26/18 00:00 97.1 F L 90 18 91/57 93 L 12/25/18 20:00 75 17 132/75 96 12/25/18 18:45 72 113/66 12/25/18 17:45 75 123/62 12/25/18 17:15 71 125/71 12/25/18 16:45 72 138/80 12/25/18 16:30 71 141/80 12/25/18 16:25 75 16 12/25/18 16:15 77 133/69 12/25/18 16:00 98.6 F 75 16 137/70 94 L 12/25/18 12:23 97.9 F 79 18 170/70 92 L Intake and Output 12/25/18 12/26/18 12/26/18 22:59 06:59 14:59 Intake Total 460 1000 240 Balance 460 1000 240 Intake: IV 40 Invasive Line 1 40 Intake, IV Titration 1000 Amount Sodium Chloride 0.9% 1, 1000 000 ml In Empty Bag 1 bag @ 1 ML/KG/HR 68.039 mls/ hr IV .[id number] Rx#: [id number] Oral 420 240 Other: Voiding Method Bedpan Toilet Toilet # Voids 1 Weight 70.632 kg PHYSICAL EXAMINATION: Patient is lying in the bed comfortably, no acute distress, awake alert and oriented.. HEENT: Normocephalic. Neck is supple. Pupils reactive. Nostrils clear. Oral cavity is moist. Ears reveal no drainage. Neck reveals no JVD, carotid bruits, or thyromegaly. CHEST EXAMINATION: Trachea is central. Symmetrical expansion. Lung villanueva clear to auscultation and percussion. CARDIAC: Normal S1, S2 with no gallops. No murmurs ABDOMEN: Soft. Bowel sounds normal. No organomegaly. No abdominal bruits. Extremities: Bilateral lower extremity 1+ pitting edema. No clubbing or cyanosis Neurologically awake, alert, oriented x3 with well-coordinated movements. No focal deficits noted Skin: No rash or skin lesions. Psychiatric: Coperative. Nonsuicidal Musculoskeletal: No joint swelling or deformity. Normal range of motion. Results CBC & Chem 7: 12/26/18 05:57 Assessment and Plan Assessment: Right lower extremity disabiling claudication, rest pain and dry gangrene right 4th toe Bullitt 5. Status post percutaneous transluminal balloon angioplasty of the right superficial femoral artery and above-knee femoral artery. Peripheral vascular disease History of coronary artery disease status post CABG History of mitral valve repair Hypertension History of [place] Hypothyroidism History of right breast cancer with mastectomy, radiation and chemotherapy 1998 Scoliosis of the spine History of psoriasis Dry gangrene of the right fourth toe Varicose veins Anxiety COPD stable Previous history of smoking Plan: Patient will be continued on aspirin and Plavix. Continue with status. Continue with Coreg. Pain management. Encourage ambulation and follow closely. Further recommendations based on the clinical course. Patient is being discharged home today. Discharge medication reconciliation was done. Recommends to follow with primary care physician 2-5 days. Time with Patient: Greater than 30
== END 2018-12-26 12:38 | disposition home or self-care (01) | DRG 271 ==
LOC: 2ORMAIN 15:02 → 3SCARD 15:33
PROVIDERS: ADMIT Surgery; ATTEND Surgery
PROC: 047K3ZZ Dilation of Right Femoral Artery, Percutaneous Approach (ICD-10-PCS; principal; 2018-12-25 13:22)
PROC: 04CK3ZZ Extirpation of Matter from Right Femoral Artery, Percutaneous Approach (ICD-10-PCS; principal; 2018-12-25 13:22)
PROC: B41F1ZZ Fluoroscopy of Right Lower Extremity Arteries using Low Osmolar Contrast (ICD-10-PCS; principal; 2018-12-25 13:22)
DX: I70.261 Atherosclerosis of native arteries of extremities with gangrene, right leg (principal); I70.92 Chronic total occlusion of artery of the extremities; E03.9 Hypothyroidism, unspecified; F41.9 Anxiety disorder, unspecified; I10 Essential (primary) hypertension; I25.10 Atherosclerotic heart disease of native coronary artery without angina pectoris; I25.2 Old myocardial infarction; I83.90 Asymptomatic varicose veins of unspecified lower extremity; J44.9 Chronic obstructive pulmonary disease, unspecified; M41.9 Scoliosis, unspecified; Z79.02 Long term (current) use of antithrombotics/antiplatelets; Z79.51 Long term (current) use of inhaled steroids; Z79.82 Long term (current) use of aspirin; Z79.899 Other long term (current) drug therapy; Z82.49 Family history of ischemic heart disease and other diseases of the circulatory system; Z83.3 Family history of diabetes mellitus; Z85.3 Personal history of malignant neoplasm of breast; Z87.891 Personal history of nicotine dependence; Z90.11 Acquired absence of right breast and nipple; Z95.1 Presence of aortocoronary bypass graft; Z95.2 Presence of prosthetic heart valve; Z92.21 Personal history of antineoplastic chemotherapy; Z92.3 Personal history of irradiation; Z88.5 Allergy status to narcotic agent
CPT/HCPCS: 36415; 37225; 82565; 85347; 86850; 86900; 86901; 94640

== ENCOUNTER → 2019-01-30 | Outpatient (CLI) | payer MEDICARE ==
[2019-01-30 17:12] LABS: LDL Cholesterol,Calculated 70.6 mg/dL (0.0-131.0); VLDL Calculation 30.4 mg/dL (5.00-40.00)
== END | disposition home or self-care (01) ==
LOC: LABWHC1 08:30
PROVIDERS: ATTEND Nurse Practitioner Adult Health
DX: E78.2 Mixed hyperlipidemia (principal)
CPT/HCPCS: 36415; 80061; 84450; 84460

== ENCOUNTER 2019-02-19 16:14 | Emergency (ER) | payer MEDICARE ==
[2019-02-19 16:24] VITALS: BP 144/82; PULSE 89; RESP 20; TEMP 98.1
--- NOTE | 2019-02-19 17:04 | XR ---
EXAMINATION TYPE: XR ankle complete LT DATE OF EXAM: 02/19/2019 COMPARISON: NONE HISTORY: Pain TECHNIQUE: 3 views FINDINGS: Ankle mortise is anatomic. I see no fracture nor dislocation. There are plantar and Sukhdeep s calcaneal spurs. IMPRESSION: Calcaneal spurring. No fracture.
--- NOTE | 2019-02-19 17:19 | ED ---
Lower Extremity Injury HPI - General Chief Complaint: Extremity Injury, Lower Stated Complaint: lt ankle injury Time Seen by Provider: 02/19/19 16:25 Source: patient Mode of arrival: ambulatory Limitations: no limitations - History of Present Illness Initial Comments: 74yo female presenting today for chief complaint of left ankle pain. Patient states she went to get up from her recliner when she twisted her left ankle she states she heard a snap and pop. Patient states after she had pain with weightbearing. Patient noticed that she had some swelling along the lateral aspect. Patient was considered there was a break in the bony presents emergency department for evaluation. Patient denies any falls injury to the head and neck or back. Patient denies any pain at the knee or the hip and states the pain is localized to the ankle denies any pain in the foot. Patient denies any numbness tingling loss sensation: Was or pallor of the extremity. Remaining review of systems negative upon arrival patient appears well no signs of acute distress. She is accompanied by her son. - Related Data Home Medications Medication Instructions Recorded Confirmed Atorvastatin [Lipitor] 80 mg PO HS 09/02/18 12/25/18 Carvedilol 12.5 mg PO DAILY 09/02/18 12/25/18 Furosemide [Lasix] 20 mg PO DAILY 10/30/18 12/25/18 Gabapentin [Neurontin] 300 mg PO TID 10/30/18 12/25/18 ALPRAZolam [Xanax] 0.25 mg PO DAILY PRN 11/20/18 12/25/18 Acetaminophen Tab [Tylenol] 325 - 650 mg PO Q4-6H PRN 12/22/18 12/25/18 Ascorbic Acid [Vitamin C] 250 mg PO DAILY 12/22/18 12/25/18 Aspirin 81 mg PO HS 12/22/18 12/25/18 Cholecalciferol (Vitamin D3) 2,000 unit PO DAILY 12/22/18 12/25/18 [Vitamin D3] Multivitamins, Thera [Multivitamin 1 tab PO DAILY 12/22/18 12/25/18 (formulary)] Cyanocobalamin [Vitamin B-12] 500 mcg PO DAILY 12/24/18 12/25/18 Previous Rx's Medication Instructions Recorded Budesonide-Formot 160-4.5 Mcg 2 puff INHALATION RT-BID #1 inhaler 10/29/17 [Symbicort 160-4.5 Mcg Inhaler] Nitroglycerin Sl Tabs [Nitrostat] 0.4 mg SUBLINGUAL Q5M PRN #25 tab 09/04/18 Clopidogrel [Plavix] 75 mg PO DAILY #30 tab 12/26/18 Allergies Allergy/AdvReac Type Severity Reaction Status Date / Time morphine Allergy Hallucinati Verified 02/19/19 16:24 ons Review of Systems ROS Statement: Those systems with pertinent positive or pertinent negative responses have been documented in the HPI. ROS Other: All systems not noted in ROS Statement are negative. Past Medical History Past Medical History: Coronary Artery Disease (CAD), Cancer, COPD, Hypertension, Myocardial Infarction ([place]), Renal Disease, Skin Disorder, Thyroid Disorder, Vascular Disorder Additional Past Medical History / Comment(s): Hx Right Breast cancer with mastectomy, radiation & chemotherapy 1998, scoliosis of the spine, Hx Psoriasis. Dry Gangrene right 4th toe, Varicose veins, edema rt foot/ankle., Fem. Pop. 12/25/18 Last Myocardial Infarction Date:: 10/2017 History of Any Multi-Drug Resistant Organisms: None Reported Past Surgical History: Breast Surgery, Cardiac Valve Replacement, Coronary Bypass/CABG, Heart Catheterization Additional Past Surgical History / Comment(s): Right mastectomy. CABG 5 vessel 07/07/18. Past Anesthesia/Blood Transfusion Reactions: No Reported Reaction Additional Past Anesthesia/Blood Transfusion Reaction / Comment(s): NO HX OF BLOOD TRANSFUSION. Past Psychological History: No Psychological Hx Reported Smoking Status: Never smoker Past Alcohol Use History: None Reported, Occasional - Past Family History Father Family Medical History: Coronary Artery Disease (CAD), CVA/TIA, Hypertension, Myocardial Infarction ([place]) Mother Family Medical History: Coronary Artery Disease (CAD), CVA/TIA, Diabetes Mellitus, Hypertension, Myocardial Infarction ([place]) Additional Family Medical History / Comment(s): pace maker General Exam - General Exam Comments Initial Comments: General: The patient is awake and alert, in no distress, and does not appear acutely ill. Eye: Pupils are equal, round and reactive to light, extra-ocular movements are intact. No nystagmus. There is normal conjunctiva bilaterally. No signs of icterus. Cardiovascular: There is a regular rate and rhythm. No murmur, rub or gallop is appreciated. Respiratory: Lungs are clear to auscultation, respirations are non-labored, breath sounds are equal. No wheezes, stridor, rales, or rhonchi. Musculoskeletal: Upon inspection of the ankles bilaterally. Soft tissue swelling noted over the left lateral malleolus. Patient is tender at this location. Patient is able to fully range at the ankles knees and hips bilaterally. No evidence of rotation or shortening of the left lower extremity. strong +2 DP pulses /bl. No evidence of foot drop, compartments are soft and compressible. NO pain/bruising of the foot, fore foot, plantar aspect of the foot. Neurological: A&O x 3. CN II-XII intact, There are no obvious motor or sensory deficits. Coordination appears grossly intact. Speech is normal. Skin: Skin is warm and dry and no rashes or lesions are noted. Psychiatric: Cooperative, appropriate mood & affect, normal judgment. Limitations: no limitations Course Vital Signs 02/19/19 16:22 Temperature 98.1 F Pulse Rate 89 Respiratory 20 Rate Blood Pressure 144/82 O2 Sat by Pulse 99 Oximetry Procedures - Orthopedic Splinting/Casting Injury #1 Side: left Lower Extremity Injury Location: ankle Lower Extremity Immobilizer: stirrup splint Medical Decision Making - Medical Decision Making 74yo female present for left ankle pain after rotating inward. Soft tissue swelling over the lateral malleolus. Imaging studies revealed no acute fracture. Did personally review imaging set studies myself. Patient is neurovascularly intact. Appears well no pain at the proximal tibia and fibula. No pain of the foot or forefoot. At this time feel patient most likely is ankle sprain I recommended primary care follow-up within the next week and if patient continues to have symptoms I recommended orthopedic surgery evaluation and consultation. Patient was understanding of plan return parameters were discussed and patient was discharged appeared well Disposition Clinical Impression: Left ankle sprain, Left ankle injury, Left ankle pain Disposition: HOME SELF-CARE Condition: Good Instructions (If sedation given, give patient instructions): Ankle Sprain (ED) Additional Instructions: Please use medication as discussed. Please follow-up with family doctor in the next 2 days. Please return to emergency room if the symptoms increase or worsen or for any other concerns. Is patient prescribed a controlled substance at d/c from ED?: No Referrals: Toby Lantigua MD [Primary Care Provider] - 1-2 days Time of Disposition: 17:18
== END 2019-02-19 17:34 | disposition home or self-care (01) ==
LOC: EC 16:14
DX: S93.402A Sprain of unspecified ligament of left ankle, initial encounter (principal); I25.10 Atherosclerotic heart disease of native coronary artery without angina pectoris; I10 Essential (primary) hypertension; I25.2 Old myocardial infarction; Z79.02 Long term (current) use of antithrombotics/antiplatelets; Z79.82 Long term (current) use of aspirin; Z79.899 Other long term (current) drug therapy; Z88.5 Allergy status to narcotic agent; Z95.1 Presence of aortocoronary bypass graft; Z95.2 Presence of prosthetic heart valve; Z95.5 Presence of coronary angioplasty implant and graft; Z85.3 Personal history of malignant neoplasm of breast; Z90.11 Acquired absence of right breast and nipple; Z92.3 Personal history of irradiation; Z92.21 Personal history of antineoplastic chemotherapy; X50.1XXA Overexertion from prolonged static or awkward postures, initial encounter; Y92.009 Unspecified place in unspecified non-institutional (private) residence as the place of occurrence of the external cause
CPT/HCPCS: 73610; 99283; 29515; L4350

== ENCOUNTER → 2019-05-07 | Outpatient (CLI) | payer MEDICARE ==
--- NOTE | 2019-05-08 14:35 | MM ---
Reason for exam: screening (asymptomatic). Last mammogram was performed 1 year ago. History: Patient is postmenopausal and has history of breast cancer at age 53. Malignant excisional biopsy of the right breast, March 04, 1998. Mastectomy of the right breast. Radiation therapy of the right breast. Physical Findings: A clinical breast exam by your physician is recommended on an annual basis and results should be correlated with mammographic findings. MG Screen [place] Unilateral W/Cad CC and MLO view(s) were taken of the left breast. Prior study comparison: May 05, 2018, bilateral MG screen [place] unilateral w/cad. January 02, 2005, left diagnostic mammogram w/CAD. There are scattered fibroglandular densities. Benign appearing calcifications in the left breast. No suspicious abnormality. Right mastectomy. No significant changes when compared with prior studies. ASSESSMENT: Benign, BI-RAD 2 RECOMMENDATION: Routine screening mammogram of the left breast in 1 year.
== END | disposition home or self-care (01) ==
LOC: RADMAMWWP 10:55
PROVIDERS: ATTEND Family Medicine
DX: Z12.31 Encounter for screening mammogram for malignant neoplasm of breast (principal)
CPT/HCPCS: 77067

== ENCOUNTER → 2019-07-29 | Outpatient (CLI) | payer MEDICARE ==
[2019-07-29 10:37] LABS: Appearance,Urine Clear (Clear); Bacteria,Urine Rare /hpf; Basophils # (A) 0.1 k/uL (0-0.2); Basophils % (A) 1 %; Bilirubin,Urine Negative (Negative); Blood,Urine Negative (Negative); Color,Urine Light Yellow; Eosinophils # (A) 0.2 k/uL (0-0.7); Eosinophils % (A) 2 %; Glucose,Urine (UA) Negative (Negative); HCT 43.3 % (34.0-46.0); HGB 13.4 gm/dL (11.4-16.0); Hyaline Casts,Urine 6 /lpf (0-2); Hypochromasia Slight; Ketones,Urine Negative (Negative); Leukocyte Esterase,Urine Moderate (Negative); Lymphocytes # (A) 1.7 k/uL (1.0-4.8); Lymphocytes % (A) 19 %; MCH 31.8 pg (25.0-35.0); MCHC 31.1 g/dL (31.0-37.0); MCV 102.3 fL (80.0-100.0); Macrocytosis Slight; Mean Platelet Volume 8.9; Monocytes # (A) 0.5 k/uL (0-1.0); Monocytes % (A) 5 %; Mucus,Urine Rare /hpf; Neutrophils # (A) 6.4 k/uL (1.3-7.7); Neutrophils % (A) 71 %; Nitrite,Urine Negative (Negative); Platelet Count 208 k/uL (150-450); Protein,Urine Negative (Negative); RBC 4.23 m/uL (3.80-5.40); RBC,Urine <1 /hpf (0-5); RDW 15.5 % (11.5-15.5); Specific Gravity,Urine 1.005 (1.001-1.035); Squamous Epithelial Cell,Urine 3 /hpf (0-4); Urobilinogen,Urine <2.0 mg/dL (<2.0); WBC,Urine 1 /hpf (0-5)
[2019-07-29 16:19] LABS: % Iron Saturation 22.54 (12.00-45.00); African American GFR (CKD) 64.7 (60.0-200.0); Albumin 4.2 g/dL (3.80-4.90); Albumin/Globulin Ratio 1.91 (1.60-3.17); Anion Gap 7.1 mmol/L (4.00-12.00); Calcium 9.1 mg/dL (8.7-10.3); Carbon Dioxide 29.9 mmol/L (21.6-31.8); Chol/HDL Ratio 3.11; Globulin 2.2 g/dL (1.6-3.3); Non-African American GFR(CKD) 55.8 (60.0-200.0); Phosphorus 3.9 mg/dL (2.4-5.1); Potassium 4.3 mmol/L (3.5-5.5); Total Bilirubin 0.6 mg/dL (0.3-1.2); Total Protein 6.4 g/dL (6.2-8.2); Uric Acid 6.1 mg/dL (2.9-7.7)
[2019-07-29 16:27] LABS: Ferritin 116.1 ng/mL (10.0-291.0)
[2019-07-29 16:49] LABS: Creatinine,Urine Random 18.1 mg/dL
[2019-07-29 16:56] LABS: Total Protein,Urine Random <4.0 mg/dL (0.0-13.5)
== END | disposition home or self-care (01) ==
LOC: LABWHC1 10:08
PROVIDERS: ATTEND Nurse Practitioner Family
DX: E78.2 Mixed hyperlipidemia (principal); E55.9 Vitamin D deficiency, unspecified; N25.81 Secondary hyperparathyroidism of renal origin; M10.9 Gout, unspecified; N39.0 Urinary tract infection, site not specified; D64.9 Anemia, unspecified; R80.9 Proteinuria, unspecified; N17.9 Acute kidney failure, unspecified
CPT/HCPCS: 36415; 80053; 80061; 81001; 82306; 82570; 82728; 83540; 83550; 83735; 83970; 84100; 84156; 84550; 85025

== ENCOUNTER 2020-12-14 09:10 | Day surgery (SDC) | payer MEDICARE ==
[2020-12-12 14:01] VITALS: BMI 27.8
--- NOTE | 2020-12-14 07:56 | P.GSHP ---
History of Present Illness H&P Date: 12/14/20 CHIEF COMPLAINT: Anemia HISTORY OF PRESENT ILLNESS: The patient is a 75-year-old male who presents with anemia. Upper and lower endoscopy were offered for further evaluation and management. PAST MEDICAL HISTORY: Please see list. PAST SURGICAL HISTORY: Please see list. MEDICATIONS: Please see list. ALLERGIES: Please see list. SOCIAL HISTORY: No illicit drug use FAMILY HISTORY: No reports of Crohn disease or ulcerative colitis. REVIEW OF ORGAN SYSTEMS: CONSTITUTIONAL: No reports of fevers or chills. PHYSICAL EXAM: VITAL SIGNS: Stable GENERAL: Well-developed pleasant in no acute distress. HEENT: No scleral icterus. Extraocular movements grossly intact. Moist buccal mucosa. NECK: Supple without lymphadenopathy. CHEST: Unlabored respirations. Equal bilateral excursions. CARDIOVASCULAR: Regular rate and rhythm. Distal 2+ pulses. ABDOMEN: Soft, nondistended. MUSCULOSKELETAL: No clubbing, cyanosis, or edema. ASSESSMENT: 1. Gastroesophageal reflux disease 2. Anemia PLAN: 1. Recommend proceeding with an upper and lower endoscopy Past Medical History Past Medical History: Coronary Artery Disease (CAD), Cancer, COPD, Hypertension, Myocardial Infarction ([place]), Renal Disease, Skin Disorder, Thyroid Disorder, Vascular Disorder Additional Past Medical History / Comment(s): received both covid vaccines, Hx Right Breast cancer with mastectomy, radiation & chemotherapy 1998, scoliosis of the spine, Hx Psoriasis. Dry Gangrene right 4th toe, Varicose veins, edema rt foot/ankle. Last Myocardial Infarction Date:: 10/2017 History of Any Multi-Drug Resistant Organisms: None Reported Past Surgical History: Breast Surgery, Cardiac Valve Replacement, Coronary Bypass/CABG, Heart Catheterization Additional Past Surgical History / Comment(s): Right mastectomy. CABG 5 vessel 07/07/18,, Fem. Pop. 12/25/18 Past Anesthesia/Blood Transfusion Reactions: No Reported Reaction Additional Past Anesthesia/Blood Transfusion Reaction / Comment(s): NO problems with prior BLOOD TRANSFUSION. Smoking Status: Former smoker - Past Family History Father Family Medical History: Coronary Artery Disease (CAD), CVA/TIA, Hypertension, Myocardial Infarction ([place]) Mother Family Medical History: Coronary Artery Disease (CAD), CVA/TIA, Diabetes Mellitus, Hypertension, Myocardial Infarction ([place]) Additional Family Medical History / Comment(s): pace maker Medications and Allergies Home Medications Medication Instructions Recorded Confirmed Type Atorvastatin [Lipitor] 80 mg PO HS 09/02/18 12/12/20 History carvediloL [Carvedilol] 12.5 mg PO QAM 09/02/18 12/12/20 History Nitroglycerin Sl Tabs [Nitrostat] 0.4 mg SUBLINGUAL Q5M PRN #25 tab 09/04/18 12/12/20 Rx Furosemide [Lasix] 20 mg PO BID 10/30/18 12/12/20 History ALPRAZolam [Xanax] 0.25 mg PO DAILY PRN 11/20/18 12/12/20 History Acetaminophen Tab [Tylenol] 325 - 650 mg PO Q4-6H PRN 12/22/18 12/12/20 History Ascorbic Acid [Vitamin C] 250 mg PO DAILY 12/22/18 12/12/20 History Aspirin 81 mg PO HS 12/22/18 12/12/20 History Cholecalciferol (Vitamin D3) 50 mcg PO DAILY 12/22/18 12/12/20 History [Vitamin D3] Multivitamins, Thera [Multivitamin 1 tab PO DAILY 12/22/18 12/12/20 History (formulary)] Cyanocobalamin [Vitamin B-12] 500 mcg PO DAILY 12/24/18 12/12/20 History Fluticasone/Vilanterol [Breo 1 inhalation INHALATION QAM 12/12/20 12/12/20 History Ellipta 200-25 Mcg INH] Allergies Allergy/AdvReac Type Severity Reaction Status Date / Time morphine Allergy Hallucinati Verified 12/12/20 13:47 ons
[2020-12-14 09:40] VITALS: RESP 18; TEMP 97.7
[2020-12-14] MEDS ORDERED: LACTATED RINGERS 1,000 ML IV ONE (10:20)
[2020-12-14] MEDS ORDERED: PROPOFOL 10 MG/ML 20 ML VIAL IV ONE (10:34)
[2020-12-14] MEDS ORDERED: LIDOCAINE 1% INJ 10MG/ML (20 ML MDV) ONE (10:34)
--- NOTE | 2020-12-14 10:50 | P.PCN ---
Date of Procedure: 12/14/20 Description of Procedure: PREOPERATIVE DIAGNOSIS: Gastrointestinal bleeding Anemia POSTOPERATIVE DIAGNOSIS: Gastritis with bleeding Gastroesophageal reflux disease with erosive esophagitis OPERATION: Esophagogastroduodenoscopy with biopsies along antrum. SURGEON: Ceci Fuentes MD ANESTHESIA: MAC. INDICATIONS: The patient is a 75-year-old female who presents with a history of anemia and guaiac-positive stools for blood. Benefits and risks of the procedure were described. Informed consent was obtained. DESCRIPTION: The patient was brought into the endoscopy suite and laid in the left lateral decubitus position. An Olympus gastroscope was passed along the posterior oropharynx down to the distal esophagus where the squamocolumnar junction was encountered at 37 cm from the incisors. The stomach was entered and no bile reflux was found. Additional findings are listed below. Biopsies with cold forceps were obtained of the antrum. The first through third portion of the duodenum was examined and unremarkable. Retroflexion of the scope confirmed Hill grade 2 lower esophageal valve. The squamocolumnar junction demonstrated LA grade C erosive esophagitis. The stomach was desufflated. The patient tolerated the procedure well. FINDINGS: Squamocolumnar junction 37 cm from the incisors. Diaphragmatic hiatus at 38 cm. Hiatal hernia, 1 cm Hill grade 2 lower esophageal valve. LA grade C erosive esophagitis. No active duodenitis. Chronic gastritis with recent bleed RECOMMENDATIONS: Upper endoscopy as needed. Omeprazole 40 mg daily for 2 weeks
--- NOTE | 2020-12-14 11:30 | P.PCN ---
Date of Procedure: 12/14/20 Description of Procedure: PREOPERATIVE DIAGNOSIS: Abnormal stool test. Gastrointestinal bleed POSTOPERATIVE DIAGNOSIS: Sigmoid diverticulosis Cecal adenoma Ascending colon adenoma Hepatic flexure adenoma Mid transverse colon adenoma Rectal adenoma Sigmoid adenoma OPERATION: Colonoscopy to the ileocecal valve and appendiceal orifice, cecum Colonoscopy with hot snare polypectomy SURGEON: Ceci Fuentes MD. ANESTHESIA: MAC. INDICATIONS: The patient is an 75-year-old female who presents with abnormal stool test positive for occult blood. Last colonoscopy 5 to 10 years ago. Benefits and risks were described and informed consent was obtained. DESCRIPTION OF PROCEDURE: The patient had undergone Sutab prep. The patient had been brought into the operating room and laid in the left lateral decubitus position. After adequate intravenous sedation, the rectum was examined with 2% lidocaine jelly. External hemorrhoids were encountered. The rectal tone was within normal limits. No lesions were palpated in the rectal vault. An Olympus colonoscope was advanced until the cecum, ileocecal valve and appendiceal orifice were clearly viewed. The prep was fair. Sigmoid diverticulosis was encountered. Colonic polyps were found and removed. No evidence of focal colitis was found. Retroflexion of the scope demonstrated grade 3 internal hemorrhoids without active bleeding or inflammation. The colon was desufflated. The patient had tolerated the procedure well. Withdrawal time was over 6 minutes. FINDINGS: Aronchick preparation quality scale 3 (1-5) Internal hemorrhoids, grade 3 with recent inflammation External hemorrhoids, grade 2. No arteriovenous malformations. Sigmoid diverticulosis Removal of 11 polyps: - Snare polypectomy 10 cm from the anal verge, 5 mm tubulovillous adenoma polyp, rectum - Snare polypectomy 35 cm from the anal verge, 4 mm flat villous adenoma polyp, sigmoid colon - Snare polypectomy mid transverse colon x 2, 6 to 8 mm flat villous adenoma polyp. - Snare polypectomy hepatic flexure x 2, 4 to 5 mm flat villous adenoma polyp. - Snare polypectomy ascending colon x 2, 5 to 7 mm flat villous adenoma polyp. - Snare polypectomy cecum x 3, 3 to 7 mm flat villous adenoma polyp. No focal colitis. RECOMMENDATIONS: Repeat colonoscopy in one year, 2021 due to multiple high-risk tumor adenomas Recommend prep for at least 2 days Plan - Discharge Summary Discharge Rx Participant: No New Discharge Prescriptions: Continue Atorvastatin [Lipitor] 80 mg PO HS carvediloL [Carvedilol] 12.5 mg PO QAM Nitroglycerin Sl Tabs [Nitrostat] 0.4 mg SUBLINGUAL Q5M PRN #25 tab PRN Reason: Chest Pain Furosemide [Lasix] 20 mg PO BID ALPRAZolam [Xanax] 0.25 mg PO DAILY PRN PRN Reason: Anxiety Multivitamins, Thera [Multivitamin (formulary)] 1 tab PO DAILY Aspirin 81 mg PO HS Acetaminophen Tab [Tylenol] 325 - 650 mg PO Q4-6H PRN PRN Reason: Pain Cholecalciferol (Vitamin D3) [Vitamin D3] 50 mcg PO DAILY Ascorbic Acid [Vitamin C] 250 mg PO DAILY Cyanocobalamin [Vitamin B-12] 500 mcg PO DAILY Fluticasone/Vilanterol [Breo Ellipta 200-25 Mcg INH] 1 inhalation INHALATION QAM Discharge Medication List Atorvastatin [Lipitor] 80 mg PO HS 09/02/18 [History] carvediloL [Carvedilol] 12.5 mg PO QAM 09/02/18 [History] Nitroglycerin Sl Tabs [Nitrostat] 0.4 mg SUBLINGUAL Q5M PRN #25 tab 09/04/18 [Rx] Furosemide [Lasix] 20 mg PO BID 10/30/18 [History] ALPRAZolam [Xanax] 0.25 mg PO DAILY PRN 11/20/18 [History] Acetaminophen Tab [Tylenol] 325 - 650 mg PO Q4-6H PRN 12/22/18 [History] Ascorbic Acid [Vitamin C] 250 mg PO DAILY 12/22/18 [History] Aspirin 81 mg PO HS 12/22/18 [History] Cholecalciferol (Vitamin D3) [Vitamin D3] 50 mcg PO DAILY 12/22/18 [History] Multivitamins, Thera [Multivitamin (formulary)] 1 tab PO DAILY 12/22/18 [Histo ry] Cyanocobalamin [Vitamin B-12] 500 mcg PO DAILY 12/24/18 [History] Fluticasone/Vilanterol [Breo Ellipta 200-25 Mcg INH] 1 inhalation INHALATION QAM 12/12/20 [History] Follow up Appointment(s)/Referral(s): Ceci Fuentes MD [STAFF PHYSICIAN] - 12/20/20 Patient Instructions/Handouts: Diverticulosis Diet (GEN), Diverticulosis (DC), Colorectal Polyps (DC) Activity/Diet/Wound Care/Special Instructions: Repeat colonoscopy in 1 years, 2021. Recommend 2 days prep Discharge Disposition: HOME SELF-CARE
[2020-12-14 11:42] VITALS: BP 147/67; PULSE 71
== END 2020-12-14 12:17 | disposition home or self-care (01) ==
LOC: ORWHC2ENDO 09:10
PROVIDERS: ATTEND Surgery Plastic and Reconstructive Surgery
DX: K29.50 Unspecified chronic gastritis without bleeding (principal); D12.2 Benign neoplasm of ascending colon; D12.0 Benign neoplasm of cecum; D12.3 Benign neoplasm of transverse colon; K63.5 Polyp of colon; K57.30 Diverticulosis of large intestine without perforation or abscess without bleeding; K22.10 Ulcer of esophagus without bleeding; K64.1 Second degree hemorrhoids; K44.9 Diaphragmatic hernia without obstruction or gangrene; K64.8 Other hemorrhoids; I25.10 Atherosclerotic heart disease of native coronary artery without angina pectoris; J44.9 Chronic obstructive pulmonary disease, unspecified; I10 Essential (primary) hypertension; I25.2 Old myocardial infarction; J45.909 Unspecified asthma, uncomplicated; I96 Gangrene, not elsewhere classified; L40.9 Psoriasis, unspecified; M41.9 Scoliosis, unspecified; N28.9 Disorder of kidney and ureter, unspecified; E07.9 Disorder of thyroid, unspecified; Z85.3 Personal history of malignant neoplasm of breast; Z90.10 Acquired absence of unspecified breast and nipple; Z92.21 Personal history of antineoplastic chemotherapy; Z92.3 Personal history of irradiation; Z95.1 Presence of aortocoronary bypass graft; Z95.2 Presence of prosthetic heart valve; Z98.890 Other specified postprocedural states; Z87.891 Personal history of nicotine dependence; Z82.49 Family history of ischemic heart disease and other diseases of the circulatory system; Z83.3 Family history of diabetes mellitus; Z79.51 Long term (current) use of inhaled steroids; Z79.82 Long term (current) use of aspirin; Z79.899 Other long term (current) drug therapy; Z88.5 Allergy status to narcotic agent
CPT/HCPCS: 88305; 45385; 43239; J2001; J2704

== ENCOUNTER → 2021-05-03 | Outpatient (CLI) | payer MEDICARE | END | disposition home or self-care (01) | LOC: LABWHC1 12:39 | PROVIDERS: ATTEND Family Medicine | DX: Z20.822 Contact with and (suspected) exposure to COVID-19 (principal) | CPT/HCPCS: 87502; U0003; C9803 ==

== ENCOUNTER → 2021-06-20 | Outpatient (CLI) | payer MEDICARE ==
--- NOTE | 2021-06-20 12:00 | BD ---
EXAMINATION TYPE: Axial Bone Density DATE OF EXAM: 06/20/2021 COMPARISON: NONE CLINICAL HISTORY: asymptomatic post menopausal Height: 5'2 Weight: 159 FRAX RISK QUESTIONS: Secondary Osteoporosis: RISK FACTORS HISTORY OF: Active: no Postmenopausal woman: y MEDICATIONS: Additional Medications: heart, calcium ,water pills Additional History: breast cancer , 2001 , chemo and radiation EXAM MEASUREMENTS: Bone mineral densitometry was performed using the [employer] System. Bone mineral density as measured about the Lumbar spine is: ----- L1-L4(G/cm2): 1.446 T Score Values are as follows: ----- L2: 2.2 ----- L3: 3.2 ----- L4: 2.0 ----- L1-L4: 2.2 Bone mineral density about the R hip (g/cm2): 0.759 Bone mineral density about the L hip (g/cm2): 0.730 T Score values are as follows: -----R Neck: -2.0 -----L Neck: -2.2 -----R Total: -0.9 -----L Total: -1.0 IMPRESSION: Osteopenia (T Score between -2.5 and -1). There is slightly increased risk of fracture and the patient may be considered for treatment. Re-Screen 2-5 years. NOTE: T-SCORE=SD OF THE YOUNG ADULT MEAN.
== END | disposition home or self-care (01) ==
LOC: RADBDWWP 07:48
PROVIDERS: ATTEND Family Medicine
DX: M85.89 Other specified disorders of bone density and structure, multiple sites (principal); Z78.0 Asymptomatic menopausal state
CPT/HCPCS: 77080

== ENCOUNTER 2022-08-02 08:57 | Day surgery (SDC) | payer MEDICARE, OTHER ==
[2022-07-31 12:58] VITALS: BMI 26.6
--- NOTE | 2022-08-02 08:02 | P.GSHP ---
History of Present Illness H&P Date: 08/02/22 CHIEF COMPLAINT: Colon screen HISTORY OF PRESENT ILLNESS: The patient is a 77-year-old female who presents for colon screen. Lower endoscopy was offered for further evaluation and management. PAST MEDICAL HISTORY: Please see list. PAST SURGICAL HISTORY: Please see list. MEDICATIONS: Please see list. ALLERGIES: Please see list. SOCIAL HISTORY: No illicit drug use FAMILY HISTORY: No reports of Crohn disease or ulcerative colitis. REVIEW OF ORGAN SYSTEMS: CONSTITUTIONAL: No reports of fevers or chills. PHYSICAL EXAM: VITAL SIGNS: Stable GENERAL: Well-developed pleasant in no acute distress. HEENT: No scleral icterus. Extraocular movements grossly intact. Moist buccal mucosa. NECK: Supple without lymphadenopathy. CHEST: Unlabored respirations. Equal bilateral excursions. CARDIOVASCULAR: Regular rate and rhythm. Distal 2+ pulses. ABDOMEN: Soft, nontender, nondistended. MUSCULOSKELETAL: No clubbing, cyanosis, or edema. ASSESSMENT: 1. Colon screen. PLAN: 1. Recommend proceeding with a lower endoscopy Past Medical History Past Medical History: Coronary Artery Disease (CAD), Cancer, COPD, Hyperlipidemia, Hypertension, Myocardial Infarction ([place]), Renal Disease, Skin Disorder, Thyroid Disorder, Vascular Disorder Additional Past Medical History / Comment(s): , Hx Right Breast cancer with mastectomy, radiation & chemotherapy 1998, scoliosis of the spine, Hx Psoriasis. Dry Gangrene right 4th toe, Varicose veins, SEEN A KIDNEY DR IN THE PAST. Last Myocardial Infarction Date:: 10/2017 History of Any Multi-Drug Resistant Organisms: None Reported Past Surgical History: Breast Surgery, Cardiac Valve Replacement, Coronary Bypass/CABG, Heart Catheterization Additional Past Surgical History / Comment(s): Right mastectomy. CABG 5 vessel 07/07/18,, Fem. Pop. 12/25/18 Past Anesthesia/Blood Transfusion Reactions: No Reported Reaction Additional Past Anesthesia/Blood Transfusion Reaction / Comment(s): NO problems with prior BLOOD TRANSFUSION. Smoking Status: Former smoker - Past Family History Father Family Medical History: Coronary Artery Disease (CAD), CVA/TIA, Hypertension, Myocardial Infarction ([place]) Mother Family Medical History: Coronary Artery Disease (CAD), CVA/TIA, Diabetes Mellitus, Hypertension, Myocardial Infarction ([place]) Additional Family Medical History / Comment(s): pace maker Medications and Allergies Home Medications Medication Instructions Recorded Confirmed Type Atorvastatin [Lipitor] 80 mg PO HS 09/02/18 07/31/22 History carvediloL 6.25 mg PO QAM 09/02/18 07/31/22 History Nitroglycerin Sl Tabs [Nitrostat] 0.4 mg SUBLINGUAL Q5M PRN #25 tab 09/04/18 07/31/22 Rx Furosemide [Lasix] 20 mg PO BID 10/30/18 07/31/22 History ALPRAZolam [Xanax] 0.25 mg PO DAILY PRN 11/20/18 07/31/22 History Acetaminophen Tab [Tylenol] 325 - 650 mg PO Q4-6H PRN 12/22/18 07/31/22 History Ascorbic Acid [Vitamin C] 250 mg PO DAILY 12/22/18 07/31/22 History Aspirin 81 mg PO HS 12/22/18 07/31/22 History Cholecalciferol (Vitamin D3) 50 mcg PO DAILY 12/22/18 07/31/22 History [Vitamin D3] Multivitamins, Thera [Multivitamin 1 tab PO DAILY 12/22/18 07/31/22 History (formulary)] Cyanocobalamin [Vitamin B-12] 500 mcg PO DAILY 12/24/18 07/31/22 History Fluticasone/Vilanterol [Breo 1 inhalation INHALATION QAM 12/12/20 07/31/22 History Ellipta 200-25 Mcg Inhaler] Allergies Allergy/AdvReac Type Severity Reaction Status Date / Time morphine Allergy Hallucinati Verified 07/31/22 12:17 ons
[~2022-08-02 08:57] MED LIST changes: -ALPRAZolam 0.25 MG TAB PO PRN; -ASPIRIN 325 MG TAB PO STA; +LACTATED RINGERS 1,000 ML IV SCH; -SODIUM CHLORIDE 0.9% 1,000 ML in EMPTY BAG 1 BAG IV ONE; -ceFAZolin IN SWFI 2 GM/20 ML SYRINGE IVP ONE
[2022-08-02 09:47] VITALS: TEMP 97.5
[2022-08-02] MEDS ORDERED: PROPOFOL 10 MG/ML 20 ML VIAL IV ONE (09:59)
[2022-08-02] MEDS ORDERED: LIDOCAINE 2% INJ 20 MG/ML (2 ML VIAL) ONE (09:59)
[2022-08-02 11:07] VITALS: BP 142/65; PULSE 65; RESP 20
--- NOTE | 2022-08-02 11:07 | P.PCN ---
Date of Procedure: 08/02/22 Description of Procedure: PREOPERATIVE DIAGNOSIS: Personal history of colon polyps POSTOPERATIVE DIAGNOSIS: Tubular adenoma ascending colon Tubular adenoma splenic flexure Tubular adenoma transverse colon Tubular adenoma descending colon Sigmoid diverticulosis Internal hemorrhoids, grade 2 Chronic constipation OPERATION: Colonoscopy to the ileocecal valve and appendiceal orifice, cecum Colonoscopy with hot snare polypectomy Colonoscopy with cold forceps biopsy SURGEON: Ceci Fuentes MD. ANESTHESIA: MAC. INDICATIONS: The patient is an 77-year-old female who presents personal history of high-risk colon polyps. Last colonoscopy within 5 years. Benefits and risks were described and informed consent was obtained. DESCRIPTION OF PROCEDURE: The patient had undergone Sutab prep. The patient had been brought into the operating room and laid in the left lateral decubitus position. After adequate intravenous sedation, the rectum was examined with 2% lidocaine jelly. External hemorrhoids were encountered. The rectal tone was within normal limits. No lesions were palpated in the rectal vault. An Olympus colonoscope was advanced until the cecum, ileocecal valve and appendiceal orifice were clearly viewed. The prep was fair. Few sigmoid diverticulosis was encountered. Colonic polyps were found and removed. No evidence of focal colitis was found. Retroflexion of the scope demonstrated grade 2 internal hemorrhoids without active bleeding or inflammation. The colon was desufflated. The patient had tolerated the procedure well. Withdrawal time was over 6 minutes. FINDINGS: Aronchick preparation quality scale 3 (1-5) Internal hemorrhoids, grade 2 External hemorrhoids, grade 2. No arteriovenous malformations. Sigmoid diverticulosis, few Removal of 13 polyps: - Snare polypectomy 40 cm from the anal verge x 3, 4 to 5 mm tubulovillous adenoma, descending colon - Snare polypectomy of transverse colon 6, 6 to 8 mm flat villous adenoma - Snare polypectomy of splenic flexure, 4 mm flat villous adenoma - Snare polypectomy of ascending colon 3, 3 to 6 mm adenoma (removed but unable to retrieve 3-mm specimen) No focal colitis. RECOMMENDATIONS: Given severity of tubular adenomas, recommend repeat colonoscopy 1 year, 2023. Plan - Discharge Summary Discharge Rx Participant: No New Discharge Prescriptions: Continue Atorvastatin [Lipitor] 80 mg PO HS carvediloL 6.25 mg PO QAM Nitroglycerin Sl Tabs [Nitrostat] 0.4 mg SUBLINGUAL Q5M PRN #25 tab PRN Reason: Chest Pain Furosemide [Lasix] 20 mg PO BID ALPRAZolam [Xanax] 0.25 mg PO DAILY PRN PRN Reason: Anxiety Multivitamins, Thera [Multivitamin (formulary)] 1 tab PO DAILY Aspirin 81 mg PO HS Acetaminophen Tab [Tylenol] 325 - 650 mg PO Q4-6H PRN PRN Reason: Pain Cholecalciferol (Vitamin D3) [Vitamin D3] 50 mcg PO DAILY Ascorbic Acid [Vitamin C] 250 mg PO DAILY Cyanocobalamin [Vitamin B-12] 500 mcg PO DAILY Fluticasone/Vilanterol [Breo Ellipta 200-25 Mcg Inhaler] 1 inhalation INHALATION QAM Discharge Medication List Atorvastatin [Lipitor] 80 mg PO HS 09/02/18 [History] carvediloL 6.25 mg PO QAM 09/02/18 [History] Nitroglycerin Sl Tabs [Nitrostat] 0.4 mg SUBLINGUAL Q5M PRN #25 tab 09/04/18 [Rx] Furosemide [Lasix] 20 mg PO BID 10/30/18 [History] ALPRAZolam [Xanax] 0.25 mg PO DAILY PRN 11/20/18 [History] Acetaminophen Tab [Tylenol] 325 - 650 mg PO Q4-6H PRN 12/22/18 [History] Ascorbic Acid [Vitamin C] 250 mg PO DAILY 12/22/18 [History] Aspirin 81 mg PO HS 12/22/18 [History] Cholecalciferol (Vitamin D3) [Vitamin D3] 50 mcg PO DAILY 12/22/18 [History] Multivitamins, Thera [Multivitamin (formulary)] 1 tab PO DAILY 12/22/18 [History] Cyanocobalamin [Vitamin B-12] 500 mcg PO DAILY 12/24/18 [History] Fluticasone/Vilanterol [Breo Ellipta 200-25 Mcg Inhaler] 1 inhalation INHALATION QAM 12/12/20 [History] Follow up Appointment(s)/Referral(s): Ceci Fuentes MD [STAFF PHYSICIAN] - 08/14/22 Patient Instructions/Handouts: Colorectal Polyps (GEN), Diverticulosis Diet (GEN), Diverticulosis (GEN) Activity/Diet/Wound Care/Special Instructions: Repeat colonoscopy one year, 2023 Discharge Disposition: HOME SELF-CARE
== END 2022-08-02 11:27 | disposition home or self-care (01) ==
LOC: ORWHC2ENDO 08:57
PROVIDERS: ATTEND Surgery Plastic and Reconstructive Surgery
DX: Z12.11 Encounter for screening for malignant neoplasm of colon (principal); D12.3 Benign neoplasm of transverse colon; D12.2 Benign neoplasm of ascending colon; K57.30 Diverticulosis of large intestine without perforation or abscess without bleeding; K64.1 Second degree hemorrhoids; I25.10 Atherosclerotic heart disease of native coronary artery without angina pectoris; J44.9 Chronic obstructive pulmonary disease, unspecified; E78.5 Hyperlipidemia, unspecified; I10 Essential (primary) hypertension; I25.2 Old myocardial infarction; L98.9 Disorder of the skin and subcutaneous tissue, unspecified; N28.9 Disorder of kidney and ureter, unspecified; E07.9 Disorder of thyroid, unspecified; I73.9 Peripheral vascular disease, unspecified; M41.9 Scoliosis, unspecified; I83.90 Asymptomatic varicose veins of unspecified lower extremity; Z86.010 Personal history of colon polyps; Z85.3 Personal history of malignant neoplasm of breast; Z87.2 Personal history of diseases of the skin and subcutaneous tissue; Z98.82 Breast implant status; Z95.5 Presence of coronary angioplasty implant and graft; Z95.1 Presence of aortocoronary bypass graft; Z87.891 Personal history of nicotine dependence; Z82.49 Family history of ischemic heart disease and other diseases of the circulatory system; Z79.82 Long term (current) use of aspirin; Z79.899 Other long term (current) drug therapy; Z88.5 Allergy status to narcotic agent
CPT/HCPCS: 88305; 45385; J2704; J2001

== ENCOUNTER → 2023-06-06 | Outpatient (CLI) | payer MEDICARE ==
--- NOTE | 2023-06-06 14:14 | US ---
EXAMINATION TYPE: US carotid duplex BILAT DATE OF EXAM: 06/06/2023 COMPARISON: NONE CLINICAL INDICATION: Female, 78 years old with history of R42 DIZZINESS AND GIDDINESS; TECHNIQUE: Carotid duplex ultrasound examination. Indirect Doppler criteria was utilized. FINDINGS: EXAM MEASUREMENTS: RIGHT: Peak Systolic Velocity (PSV) cm/sec ----- Right CCA: 109 ----- Right ICA: 315 ----- Right ECA: 157 ICA/CCA ratio: 2.9 RIGHT: End Diastole cm/sec ----- Right CCA: 27 ----- Right ICA: 74 ----- Right ECA: 32 LEFT: Peak Systolic Velocity (PSV) cm/sec ----- Left CCA: 138 ----- Left ICA: 254 ----- Left ECA: 167 ICA/CCA ratio: 1.8 LEFT: End Diastole cm/sec ----- Left CCA: 35 ----- Left ICA: 59 ----- Left ECA: 17 VERTEBRALS (direction of flow): Right Vertebral: Antegrade Left Vertebral: Antegrade Rhythm: Normal MAT SEWER NOTES: Extensive calcified plaque, intimal thickening, and elevated abnormal velocities. IMPRESSION: No evidence for hemodynamically significant stenosis. Criteria for Assigning % of Stenosis / Diameter reduction (Estimation based on the indirect measurements of the internal carotid artery velocities (ICA PSV). 1. Normal (no stenosis)=ICA PSV < 125 cm/s: ratio < 2.0: ICA EDV<40 cm/s. 2. Less than 50% stenosis=ICA PSV < 125 cm/s: ratio < 2.0: ICA EDV<40 cm/s. 3. 50 to 69% stenosis=ICA PSV of 125 to 230 cm/s: ration 2.0 ? 4.0: ICA EDV 40-100 cm/s. 4. Greater than 70% stenosis to near occlusion= ICA PSV > 230 cm/s: ratio > 4.0: ICA EDV > 100 cm/s. 5. Near occlusion= ICA PSV velocities may be low or undetectable: variable ratio and ICA EDV. 6. Total occlusion=unable to detect flow.
== END | disposition home or self-care (01) ==
LOC: RADUSWWP 13:30
PROVIDERS: ATTEND Family Medicine
DX: R42 Dizziness and giddiness (principal)
CPT/HCPCS: 93880

== ENCOUNTER → 2023-06-24 | Outpatient (CLI) | payer MEDICARE ==
--- NOTE | 2023-06-24 11:19 | MM ---
Reason for Exam: Hx of breast cancer, mastectomy. Last mammogram was performed 4 year(s) and 2 month(s) ago. Patient History: Menarche at age 14. First Full-Term at age 20. Postmenopausal. Breast cancer, right, age 53. Mastectomy on the Right side. 03/04/1998, Malignant Excisional Biopsy on the right side. Radiation Therapy, right. Prior Study Comparison: 01/02/2005 Left Diagnostic Mammogram, [facility]. 05/05/2018 Bilateral Screening Mammogram, [facility]. 05/07/2019 Screening Mammogram, [facility]. Tissue Density: Left: There are scattered fibroglandular densities. Findings: Analyzed By CAD. Appears stable. Benign-appearing linear calcifications are present. Benign vascular calcifications are present. No significant interval change. No suspicious groups of microcalcifications, spiculated or lobular masses, architectural distortion or other secondary signs of malignancy are mammographically apparent. Overall Assessment: Benign, BI-RAD 2 Management: Screening Mammogram of the left breast in 1 year. A negative mammogram report should not preclude additional follow up of suspicious palpable abnormalities. Patient should continue monthly self breast exam. A clinical breast exam by your physician is recommended on an annual basis and results should be correlated with mammographic findings. Electronically signed and approved by: [place] D.O. Radiologis
--- NOTE | 2023-06-24 18:53 | BD ---
EXAMINATION TYPE: Axial Bone Density DATE OF EXAM: 06/24/2023 CLINICAL HISTORY: 78 years old Female. ICD-10 CODE: Z78.0 ASYMPTOMATIC MENOPAUSAL Height: 63.5 Weight: 163 FRAX RISK QUESTIONS: Family History (Parent hip fracture): no History of Fracture in Adulthood: no Secondary Osteoporosis: no RISK FACTORS HISTORY OF: Family History of Osteoporosis: no Active: somewhat Diet low in dairy products/other sources of calcium: no Postmenopausal woman: yes Lost more than 2 inches in height since high school: no Frequent falls: no MEDICATIONS: Additional Medications: yes heart meds Additional History: yes 1997 breast cancer with rad and chemo EXAM MEASUREMENTS: Bone mineral densitometry was performed using the Stypi System. Bone mineral density as measured about the Lumbar spine is: ----- L1-L4(G/cm2): 1.403 T Score Values are as follows: ----- L1: 1.3 ----- L2: 1.6 ----- L3: 2.5 ----- L4: 1.8 ----- L1-L4: 1.9 Z Score Values are as follows: ----- L1: 2.8 ----- L2: 3.1 ----- L3: 4.0 ----- L4: 3.3 ----- L1-L4: 3.4 Bone mineral density has: Decreased -3.0% since study of: 06/20/2021 Bone mineral density about the R hip (g/cm2): 0.848 Bone mineral density about the L hip (g/cm2): 0.856 T Score values are as follows: -----R Neck: -2.1 -----L Neck: -2.6 -----R Total: -1.3 -----L Total: -1.2 Z Score values are as follows: -----R Neck: -0.2 -----L Neck: -0.8 -----R Total: 0.4 -----L Total: 0.4 Bone mineral density has: Decreased -3.8% since study of: 06/20/2021 FRAX%s: The graph provided illustrates a 19.2% chance for a major osteoporotic fx and a 6.7% chance f or the hips probability for fx in 10 years time. IMPRESSION: Osteoporosis (T Score less than -2.5). There is increased fracture risk and therapy is usually indicated based on age. Re-Screen 1-2 years. NOTE: T-SCORE=SD OF THE YOUNG ADULT MEAN.
== END | disposition home or self-care (01) ==
LOC: RADBDWWP 09:52
PROVIDERS: ATTEND Family Medicine
DX: R92.322 Mammographic fibroglandular density, left breast (principal); M81.0 Age-related osteoporosis without current pathological fracture; M85.851 Other specified disorders of bone density and structure, right thigh; Z85.3 Personal history of malignant neoplasm of breast; Z78.0 Asymptomatic menopausal state
CPT/HCPCS: 77080; 77065; G0279; 77061

== ENCOUNTER 2023-11-22 07:10 | Day surgery (SDC) | payer MEDICARE ==
[2023-11-19 16:39] VITALS: BMI 27.3
[~2023-11-22 07:10] MED LIST changes: +ALPRAZolam 0.25 MG TAB PO PRN; +ALPRAZolam 0.5 MG TAB PO PRN; +ASPIRIN 325 MG TAB PO STA; +HEPARIN SODIUM,PORCINE (1 ML) 2,500 UNIT in SODIUM CHLORIDE 0.9% 250 ML IRRIGATION PRN; +HEPARIN SODIUM,PORCINE 10,000 UNIT in SODIUM CHLORIDE 0.9% 1,000 ML IRRIGATION PRN; -LACTATED RINGERS 1,000 ML IV SCH; +NITROGLYCERIN SL TABS 0.4 MG TAB SUBLINGUAL PRN; +SODIUM CHLORIDE 0.9% 1,000 ML in EMPTY BAG 1 BAG IV SCH
[2023-11-22] MEDS: SODIUM CHLORIDE 0.9% 1,000 ML IV ONE (07:34)
[2023-11-22 08:14] LABS: Basophils # (A) 0.1 k/uL (0-0.2); Basophils % (A) 1 %; Eosinophils # (A) 0.2 k/uL (0-0.7); Eosinophils % (A) 3 %; HCT 38.8 % (34.0-46.0); HGB 12.3 gm/dL (11.4-16.0); Hypochromasia Slight; Lymphocytes # (A) 1.8 k/uL (1.0-4.8); Lymphocytes % (A) 24 %; MCH 33.6 pg (25.0-35.0); MCHC 31.7 g/dL (31.0-37.0); MCV 106.2 fL (80.0-100.0); Macrocytosis Moderate; Mean Platelet Volume 9.4; Monocytes # (A) 0.6 k/uL (0-1.0); Monocytes % (A) 8 %; Neutrophils # (A) 4.4 k/uL (1.3-7.7); Neutrophils % (A) 61 %; Platelet Count 172 k/uL (150-450); RBC 3.65 m/uL (3.80-5.40); RDW 14.8 % (11.5-15.5); WBC 7.2 k/uL (3.8-10.6)
[2023-11-22 08:28] LABS: African American GFR (CKD) 54 (>60 ml/min/1.73 sqM); Anion Gap 5 mmol/L; Blood Urea Nitrogen 30 mg/dL (7-17); Calcium 8.5 mg/dL (8.4-10.2); Carbon Dioxide 24 mmol/L (22-30); Chloride 110 mmol/L (98-107); Glucose 115 mg/dL (74-99); Non-African American GFR(CKD) 47 (>60 ml/min/1.73 sqM); Potassium 5.1 mmol/L (3.5-5.1); Sodium 139 mmol/L (137-145)
[2023-11-22 08:35] VITALS: RESP 16; TEMP 98.1
[2023-11-22] MEDS ORDERED: HEPARIN SODIUM 1,000 UN/ML (10ML VL) ONE (10:01)
[2023-11-22] MEDS ORDERED: fentaNYL (PF) 50 MCG/ML 2 ML AMP ONE (10:01)
[2023-11-22] MEDS: fentaNYL (PF) 50 MCG/ML 2 ML AMP IVP ONE ×2 (10:32)
[2023-11-22] MEDS: LIDOCAINE 1% INJ 10MG/ML (5 ML VIAL-PF) SQ ONE (10:34)
[2023-11-22] MEDS: VERAPAMIL SYRINGE (5 MG/10 ML) INTRAARTER ONE (10:36)
[2023-11-22] MEDS: HEPARIN SODIUM 1,000 UN/ML (10ML VL) IVP ONE (10:43)
[2023-11-22] MEDS: IOPAMIDOL-370 100ML BTL INJ ONE ×2 (10:56)
[2023-11-22] MEDS ORDERED: RX INFO: IV CONTRAST WAS GIVEN 1 EACH MISC MISCELLANE PRN (11:28)
[2023-11-22] MEDS ORDERED: SODIUM CHLORIDE 0.9% 1,000 ML IV SCH (11:30)
--- NOTE | 2023-11-22 11:37 | P.CARDCATH ---
Date of Procedure: 11/22/23 Description of Procedure: Cardiac Catheterization: The patient is a 78-year-old female with a known history of CAD, status post CABG and mitral valve repair, history of severe PAD scheduled to undergo revascularization who had an abnormal MPI. Recommendations were made regarding cardiac catheterization, the risks and the complications were discussed with the patient who is in full understanding and agreement. 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 Using Xylocaine Anesthesia and modified Seldinger technique, a 6-[place] sheath was introduced in the left radial artery . Subsequently, selective coronary angiography was performed using a 5-[place] 4 bend Andrew catheter. Multiple views of the coronary artery including hemiaxial views were obtained. The right Andrew was used to cannulate the LIU to the LAD, SVG to the RCA and a 6 [place] LCB catheter was used to cannulate the SVG to the OM. Images of the graft were obtained. The 5 [place] pigtail catheter was used to cross the aortic valve and LVEDP was calculated. Following that, catheter and sheath were removed. Hemostasis was obtained with deployment of vascular band . There was no immediate complication. Patient was returned to room in stable condition. Of note, the patient received a total of 4000 units of intravenous heparin as well as intra-arterial verapamil. Findings: Left main: This is a large size vessel, bifurcating into LAD and left circumflex, the distal left main has a 30 to 40% plaque, the rest of the vessel has no high-grade stenosis LAD: This is a large size vessel, giving rise to a large diagonal branch. The mid LAD at the takeoff of the diagonal branch has a 50% stenosis, the rest of the vessel has no high-grade stenosis. There is retrograde filling through the diagonal branch to the LIU Left circumflex: This is a large codominant vessel giving rise distally to PDA and a PLV. The OM is occluded. Distally prior to the bifurcation of the PDA and the PLV there is a 60% plaque. RCA: This is a codominant vessel,, moderate in caliber. The RCA is occluded distally with no significant antegrade flow. LIU: LIU to the diagonal branch is patent, the flow in the diagonal branch is brisk. There is no significant flow seen to the LAD SVG to the RCA: This vessel is totally occluded proximally with no antegrade flow SVG to OM 1 and 2: The proximal and distal anastomotic site are patent. The flow in the graft is brisk. There is no evidence of high-grade stenosis. Left Ventriculogram: Not performed Hemodynamics: There was no gradient across aortic valve, LVEDP was 16-20 mmHg Conclusion: 1. Moderate disease in the distal left main 2. Chronically occluded RCA 3. Moderate disease in the distal codominant circumflex 4. Patent LIU to the diagonal branch with no significant flow into the LAD 5. Patent SVG to OM1 and 2 with no obstructive disease 6. Chronically occluded SVG to the RCA. Recommendations: The patient will continue on medical therapy. The results of her stress test most likely represent the RCA territory. She should be able to proceed with her scheduled vascular revascularization. The findings and the recommendations were discussed with the patient and the family and they were in full understanding and agreement. Duration of sedation is 31 minutes.
[2023-11-22 14:21] VITALS: BP 99/59; PULSE 65
[2023-11-22] MEDS ORDERED: ATORVASTATIN 80 MG TAB PO SCH (21:00)
[2023-11-23] MEDS ORDERED: carvediloL 6.25 MG TAB PO SCH (07:30)
[2023-11-23] MEDS ORDERED: ASPIRIN 81 MG PO SCH (09:00)
[2023-11-23] MEDS ORDERED: lisinopriL 5 MG TAB PO SCH (09:00)
== END 2023-11-22 14:39 | disposition home or self-care (01) ==
LOC: CATHCVL 07:10
PROVIDERS: ATTEND Internal Medicine Interventional Cardiology
DX: I25.10 Atherosclerotic heart disease of native coronary artery without angina pectoris (principal); E78.5 Hyperlipidemia, unspecified; I73.9 Peripheral vascular disease, unspecified; I25.5 Ischemic cardiomyopathy; Z95.1 Presence of aortocoronary bypass graft; N18.9 Chronic kidney disease, unspecified; F17.210 Nicotine dependence, cigarettes, uncomplicated; Z79.899 Other long term (current) drug therapy; Z79.82 Long term (current) use of aspirin
CPT/HCPCS: 93459; 80048; 85025; C1769 ×2; C1894; J2001; J3010; J1644; Q9967

== ENCOUNTER 2023-11-29 08:55 | Inpatient (IN) | payer MEDICARE ==
[2023-11-29] MEDS ORDERED: VANCOMYCIN IV PER PHARMACY 1 EACH MISC MISCELLANE PRN (09:24)
[2023-11-29] MEDS: SODIUM CHLORIDE 0.9% 1,000 ML IV STA ×2 (09:37→09:52)
[2023-11-29 09:47] LABS: HCT 36.4 % (34.0-46.0); HGB 11.3 gm/dL (11.4-16.0); Hypochromasia Slight; MCH 32.7 pg (25.0-35.0); MCV 105.6 fL (80.0-100.0); Macrocytosis Moderate; Mean Platelet Volume 9.7; Platelet Count 173 k/uL (150-450); RBC 3.44 m/uL (3.80-5.40); RDW 15.2 % (11.5-15.5); WBC 11.7 k/uL (3.8-10.6)
[2023-11-29] MEDS: MAGNESIUM SULFATE-D5W PMX 1 GM in DEXTROSE/WATER 1 100ML.BAG IVPB STA (09:51)
[2023-11-29] MEDS: SODIUM CHLORIDE 0.9% 500 ML IV STA (09:51)
[2023-11-29] MEDS: PIPERACILLIN-TAZOBACTAM 3.375 GM in SODIUM CHLORIDE 0.9% 100 ML IVPB SCH (09:52)
[2023-11-29] MEDS: methylPREDNISolone SOD SUCCI 125 MG/2 ML VIAL IV STA (09:53)
[2023-11-29] MEDS: IPRATROPIUM-ALBUTEROL 3 ML NEB INHALATION STA ×2 (10:01→10:02)
[2023-11-29 10:02] LABS: ALT 25 U/L (4-34); African American GFR (CKD) 36 (>60 ml/min/1.73 sqM); Anion Gap 7 mmol/L; Blood Urea Nitrogen 37 mg/dL (7-17); Calcium 7.8 mg/dL (8.4-10.2); Carbon Dioxide 22 mmol/L (22-30); Chloride 104 mmol/L (98-107); Glucose 129 mg/dL (74-99); Non-African American GFR(CKD) 31 (>60 ml/min/1.73 sqM); Sodium 133 mmol/L (137-145); Total Bilirubin 1.5 mg/dL (0.2-1.3)
[2023-11-29 10:10] LABS: NT-Pro-B-Type Natriuretic Pept 4240 pg/mL
[2023-11-29 10:21] LABS: Total Protein 6.4 g/dL (6.3-8.2)
[2023-11-29 10:22] LABS: Albumin 3.2 g/dL (3.5-5.0); Potassium 5.4 mmol/L (3.5-5.1)
[2023-11-29 10:23] LABS: AST 44 U/L (14-36); Alkaline Phosphatase 71 U/L (38-126)
[2023-11-29 10:30] LABS: Prothrombin Time 11.1 sec (10.0-12.5)
[2023-11-29 10:31] LABS: Partial Thromboplastin Time 21.8 sec (22.0-30.0)
[2023-11-29 10:43] LABS: Band Neutrophils % 4 %; Lymphocytes # (M) 1.52 k/uL (1.0-4.8); Monocytes # (M) 1.52 k/uL (0-1.0); Neutrophils % (M) 71 %; Nucleated Red Blood Cells 0 /100 WBC (0-0); Total Cells Counted 200
[2023-11-29] MEDS: VANCOMYCIN 1,250 MG in SODIUM CHLORIDE 0.9% 250 ML IVPB STA (11:01)
--- NOTE | 2023-11-29 11:10 | XR ---
EXAMINATION TYPE: XR chest 1V DATE OF EXAM: 11/29/2023 10:19 AM CLINICAL INDICATION:Female, 78 years old with history of difficulty breathing; [facility] COMPARISON: Chest radiographs from 09/02/2018 TECHNIQUE: XR chest 1V Frontal view of the chest. FINDINGS: Lungs/Pleura: There is no evidence of pleural effusion, focal consolidation, or pneumothorax. Pulmonary vascularity: Pulmonary vascular congestion. Heart/mediastinum: Cardiomediastinal silhouette is enlarged and stable. Post valve repair changes. Musculoskeletal: No acute osseous pathology. Midline sternotomy wires are noted. Other findings: Right axilla surgical clips IMPRESSION: Cardiomegaly and mild pulmonary vascular congestion. Correlate with BNP for congestive heart failure.
[2023-11-29] MEDS: IPRATROPIUM-ALBUTEROL 3 ML NEB INHALATION SCH (12:27)
[2023-11-29] MEDS ORDERED: NALOXONE 0.4 MG/ML 1 ML VIAL IV PRN (12:31)
--- NOTE | 2023-11-29 12:34 | ED ---
General Adult HPI - General Chief complaint: Shortness of Breath Stated complaint: SOB Time Seen by Provider: 11/29/23 09:08 Source: patient, RN notes reviewed, old records reviewed Mode of arrival: wheelchair Limitations: no limitations - History of Present Illness Initial comments: Patient is a 78-year-old female who presents emergency department complaining of shortness of breath. Her has similar complaints. Cough, congestion for approximately 1 week. He has a history of COPD. States her oxygen typically runs in the 80s at home. Denies any chest pain but does endorse a productive cough of yellowish mucus. States it is progressively gotten worse and presents for further evaluation. Denies any abdominal pain, nausea, vomiting. Has no other acute complaints at this time. Has a history of cardiac bypass, COPD, hypertension, hyperlipidemia. Presents for further evaluation. Was found to be hypoxic in triage and was placed in room 1 for evaluation. - Related Data Home Medications Medication Instructions Recorded Confirmed Furosemide [Lasix] 20 mg PO BID 10/30/18 11/29/23 ALPRAZolam [Xanax] 0.25 mg PO DAILY PRN 11/20/18 11/29/23 Aspirin 81 mg PO DAILY 12/22/18 11/29/23 Budesonide/Formoterol Fumarate 2 puff PO RT-BID 08/28/23 11/29/23 [Budesonide-Formoterol 160-4.5] lisinopriL [Zestril] 5 mg PO DAILY 11/19/23 11/29/23 Albuterol Nebulized [Ventolin 2.5 mg INHALATION RT-QID 11/29/23 11/29/23 Nebulized] Atorvastatin [Lipitor] 80 mg PO HS 11/29/23 11/29/23 Isosorbide Mononitrate ER [Imdur] 30 mg PO DAILY 11/29/23 11/29/23 carvediloL [Coreg] 6.25 mg PO DAILY 11/29/23 11/29/23 Allergies Allergy/AdvReac Type Severity Reaction Status Date / Time morphine Allergy Hallucinati Verified 11/29/23 10:05 ons Review of Systems ROS Statement: Those systems with pertinent positive or pertinent negative responses have been documented in the HPI. Review of Systems: CONST: Denies fever EYES: Denies blurry vision ENT: Denies nasal congestion C/V: Denies Chest pain RESP: Endorses dyspnea GI: Denies abdominal pain : Denies dysuria SKIN: Denies rash. MSK: Denies joint pain. NEURO: Denies headache ROS Other: All systems not noted in ROS Statement are negative. Past Medical History Past Medical History: Coronary Artery Disease (CAD), Cancer, COPD, Diabetes Mellitus, Deep Vein Thrombosis (DVT), Hyperlipidemia, Hypertension, Myocardial Infarction (NE), Musculoskeletal Disorder, Renal Disease, Skin Disorder, Thyroid Disorder, Vascular Disorder Additional Past Medical History / Comment(s): hesham leg pain with pins and needles, "Borderline Diabetic." Hx DVT's Pastpartum. Hx right breast cancer with mastectomy, radiation and chemotherapy 1998. Scoliosis. Hx Psoriasis. Dry Gangrene right 4th toe-no longer present. Varicose veins. Edema hesham foot/ankle. Hx colon polyps. Last Myocardial Infarction Date:: 10/2017 History of Any Multi-Drug Resistant Organisms: None Reported Past Surgical History: Breast Surgery, Cardiac Valve Replacement, Coronary Bypass/CABG, Heart Catheterization Additional Past Surgical History / Comment(s): Right mastectomy, CABG 5 vessel 07/07/18, Fem. Pop. 12/25/18, colonoscopies with polypectomy. Past Anesthesia/Blood Transfusion Reactions: No Reported Reaction Additional Past Anesthesia/Blood Transfusion Reaction / Comment(s): No problems with prior blood transfusions. Past Psychological History: Anxiety Smoking Status: Former smoker Past Alcohol Use History: None Reported Past Drug Use History: None Reported - Past Family History Brother(s) Family Medical History: Cancer, Coronary Artery Disease (CAD) Additional Family Medical History / Comment(s): Skin cancer,cardiac stents General Exam - General Exam Comments Initial Comments: General: Appears in mild to moderate respiratory distress. HEAD: Normal with no signs of head trauma. EYES: PERRLA, EOMI, conjunctiva normal, no discharge. ENT: Hearing grossly intact, normal oropharynx. RESPIRATORY: Reduced breath sounds bilaterally with end expiratory wheezing. Hypoxia to 80% on room air. Increased work of breathing. C/V: Regular rate and rhythm. S1 and S2 auscultated, no significant edema, peripheral pulses 2+ and intact throughout ABD: Abd is soft, nontender, nondistended EXT: Normal range of motion, no obvious deformity SKIN: No rashes or lesions observed on exposed skin. NEURO: Alert and oriented x 4. Limitations: no limitations Course Vital Signs 11/29/23 11/29/23 11/29/23 08:56 09:13 09:15 Temperature 98.9 F Pulse Rate 71 Respiratory 28 H 28 H Rate Blood Pressure 93/51 95/49 O2 Sat by Pulse 80 L 84 L 90 L Oximetry 11/29/23 11/29/23 11/29/23 10:05 10:13 10:20 Temperature Pulse Rate 73 83 Respiratory 28 H Rate Blood Pressure O2 Sat by Pulse Oximetry 11/29/23 11/29/23 11/29/23 10:59 11:11 12:00 Temperature 99.1 F Pulse Rate 86 76 67 Respiratory 28 H 28 H 18 Rate Blood Pressure 96/51 96/51 O2 Sat by Pulse 90 L 90 L 86 L Oximetry 11/29/23 11/29/23 12:27 12:39 Temperature Pulse Rate 73 73 Respiratory Rate Blood Pressure O2 Sat by Pulse Oximetry Medical Decision Making - Medical Decision Making Was pt. sent in by a medical professional or institution (, PA, GRIDDLE ATTENDANT, urgent care, hospital, or shelter...) When possible be specific @ -No Did you speak to anyone other than the patient for history (EMS, parent, family, police, friend...)? What history was obtained from this source @ -No Did you review nursing and triage notes (agree or disagree)? Why? @ -I reviewed and agree with nursing and triage notes Were old charts reviewed (outside hosp., previous admission, EMS record, old EKG, old radiological studies, urgent care reports/EKG's, shelter records)? Report findings @ -Old charts reviewed for EKG comparison which showed no obvious change. Differential Diagnosis (chest pain, altered mental status, abdominal pain women, abdominal pain men, vaginal bleeding, weakness, fever, dyspnea, syncope, headache, dizziness, GI bleed, back pain, seizure, CVA, palpatations, mental health, musculoskeletal)? @ -Differential Dyspnea: Coronary syndrome, arrhythmia, tamponade, asthma, COPD, pulmonary embolism, pneumonia, pneumothorax, pulmonary effusion, anaphylaxis, diabetic ketoacidosis, flailed chest, pulmonary contusion, diaphragmatic rupture, anemia, neuromuscular, this is not meant to be an all-inclusive list. EKG interpreted by me (3pts min.). @ -As above X-rays interpreted by me (1pt min.). @ -Chest x-ray reveals possible mild CHF findings as well as a small right pleural effusion. No obvious infiltrate. CT interpreted by me (1pt min.). @ -None done U/S interpreted by me (1pt. min.). @ -None done What testing was considered but not performed or refused? (CT, X-rays, U/S, labs)? Why? @ -None What meds were considered but not given or refused? Why? @ -None Did you discuss the management of the patient with other professionals (professionals i.e. Dr., PA, GRIDDLE ATTENDANT, lab, RT, psych nurse, social services analyst, advertising account executive, teacher, transport corps officer, case management coordinator)? Give summary @ -Discussed with Dr. Perez of pulmonology who evaluated the patient at bedside and was in agreement the plan. Spoke with admitting physician, Dr. Campuzano of [facility] who accepted the admission. Was smoking cessation discussed for >3mins.? @ -No Was critical care preformed (if so, how long)? @ -Yes, 32 minutes Were there social determinants of health that impacted care today? How? (Homelessness, low income, unemployed, alcoholism, drug addiction, transportation, low edu. Level, literacy, decrease access to med. care, fdc, rehab)? @ -No Was there de-escalation of care discussed even if they declined (Discuss DNR or withdrawal of care, Hospice)? DNR status @ -No What co-morbidities impacted this encounter? (DM, HTN, Smoking, COPD, CAD, Cancer, CVA, ARF, Chemo, Hep., AIDS, mental health diagnosis, sleep apnea, morbid obesity)? @ -None Was patient admitted / discharged? Hospital course, mention meds given and route, prescriptions, significant lab abnormalities, going to OR and other pertinent info. @ -Based on the patient's presentation and physical exam, presents to the emergency department complaining of what appears to be upper respiratory infection as well as dyspnea. Is hypoxic and tachycardic on presentation. Placed on 6 L nasal cannula which did improve hypoxia. Diffusely wheezy. Patient placed on breathing treatments, IV steroids. Patient does meet sepsis criteria at 0924 with 2 SIRS criteria. Therefore patient was placed on broad- spectrum antibiotics vancomycin and Zosyn. Blood cultures obtained and sent. 30 cc/kg fluid bolus was not given as the patient does have a history of CHF and I do not want to overload the patient. Vital signs are hemodynamically stable at this time and we will continue to reassess. Laboratory studies returned remarkable for mild leukocytosis of 11.7. Patient has an CHESTER with a slightly elevated creatinine of 1.59. Lactic acid within normal limits. BNP slightly elevated 2. Viral swabs negative. Chest x-ray shows no obvious acute focal infiltrate or process. On re evaluation, patient is feeling improved. I spoke with Dr. Perez of pulmonology who evaluated patient at bedside and agreed with IV antibiotics and continued COPD treatments with IV steroids as well as breathing treatments. Patient was in agreement this plan. I spoke with Dr. Campuzano of [facility] who accepted the admission. Undiagnosed new problem with uncertain prognosis? @ -No Drug Therapy requiring intensive monitoring for toxicity (Heparin, Nitro, Insulin, Cardizem)? @ -No Were any procedures done? @ -No Diagnosis/symptom? @ -Hypoxic respiratory failure, COPD exacerbation, sepsis Acute, or Chronic, or Acute on Chronic? @ -Acute Uncomplicated (without systemic symptoms) or Complicated (systemic symptoms)? @ -Complicated Side effects of treatment? @ -No Exacerbation, Progression, or Severe Exacerbation? @ -No Poses a threat to life or bodily function? How? (Chest pain, USA, NE, pneumonia, PE, COPD, DKA, ARF, appy, cholecystitis, CVA, Diverticulitis, Homicidal, Suicidal, threat to staff... and all critical care pts) @ -Yes - Lab Data Result diagrams: 11/29/23 09:30 11/29/23 10:56 Lab Results 11/29/23 11/29/23 11/29/23 Range/Units 09:30 09:30 09:30 WBC 11.7 H (3.8-10.6) k/uL RBC 3.44 L (3.80-5.40) m/uL Hgb 11.3 L (11.4-16.0) gm/dL Hct 36.4 (34.0-46.0) % MCV 105.6 H (80.0-100.0) fL MCH 32.7 (25.0-35.0) pg MCHC 31.0 (31.0-37.0) g/dL RDW 15.2 (11.5-15.5) % Plt Count 173 (150-450) k/uL MPV 9.7 Neutrophils % (Manual) 71 % Band Neuts % (Manual) 4 % Lymphocytes % (Manual) 13 % Monocytes % (Manual) 13 % Neutrophils # (Manual) 8.70 H (1.3-7.7) k/uL Lymphocytes # (Manual) 1.52 (1.0-4.8) k/uL Monocytes # (Manual) 1.52 H (0-1.0) k/uL Nucleated RBCs 0 (0-0) /100 WBC Manual Slide Review Performed Hypochromasia Slight Macrocytosis Moderate PT 11.1 (10.0-12.5) sec INR 1.0 (<1.2) APTT 21.8 L (22.0-30.0) sec Sodium 133 L (137-145) mmol/L Potassium 5.4 H (3.5-5.1) mmol/L Chloride 104 (98-107) mmol/L Carbon Dioxide 22 (22-30) mmol/L Anion Gap 7 mmol/L BUN 37 H (7-17) mg/dL Creatinine 1.59 H (0.52-1.04) mg/dL Est GFR (CKD-EPI)AfAm 36 (>60 ml/min/1.73 sqM) Est GFR (CKD-EPI)NonAf 31 (>60 ml/min/1.73 sqM) Glucose 129 H (74-99) mg/dL Plasma Lactic Acid Kaleb (0.7-2.0) mmol/L Calcium 7.8 L (8.4-10.2) mg/dL Magnesium 2.0 (1.6-2.3) mg/dL Total Bilirubin 1.5 H (0.2-1.3) mg/dL AST 44 H (14-36) U/L ALT 25 (4-34) U/L Alkaline Phosphatase 71 (38-126) U/L NT-Pro-B Natriuret Pep 4240 pg/mL Total Protein 6.4 (6.3-8.2) g/dL Albumin 3.2 L (3.5-5.0) g/dL Influenza Type A (PCR) (Not Detectd) Influenza Type B (PCR) (Not Detectd) RSV (PCR) (Not Detectd) SARS-CoV-2 (PCR) (Not Detectd) 11/29/23 11/29/23 11/29/23 Range/Units 09:30 09:30 10:49 WBC (3.8-10.6) k/uL RBC (3.80-5.40) m/uL Hgb (11.4-16.0) gm/dL Hct (34.0-46.0) % MCV (80.0-100.0) fL MCH (25.0-35.0) pg MCHC (31.0-37.0) g/dL RDW (11.5-15.5) % Plt Count (150-450) k/uL MPV Neutrophils % (Manual) % Band Neuts % (Manual) % Lymphocytes % (Manual) % Monocytes % (Manual) % Neutrophils # (Manual) (1.3-7.7) k/uL Lymphocytes # (Manual) (1.0-4.8) k/uL Monocytes # (Manual) (0-1.0) k/uL Nucleated RBCs (0-0) /100 WBC Manual Slide Review Hypochromasia Macrocytosis PT (10.0-12.5) sec INR (<1.2) APTT (22.0-30.0) sec Sodium (137-145) mmol/L Potassium (3.5-5.1) mmol/L Chloride (98-107) mmol/L Carbon Dioxide (22-30) mmol/L Anion Gap mmol/L BUN (7-17) mg/dL Creatinine (0.52-1.04) mg/dL Est GFR (CKD-EPI)AfAm (>60 ml/min/1.73 sqM) Est GFR (CKD-EPI)NonAf (>60 ml/min/1.73 sqM) Glucose (74-99) mg/dL Plasma Lactic Acid Kaleb 1.7 1.2 (0.7-2.0) mmol/L Calcium (8.4-10.2) mg/dL Magnesium (1.6-2.3) mg/dL Total Bilirubin (0.2-1.3) mg/dL AST (14-36) U/L ALT (4-34) U/L Alkaline Phosphatase (38-126) U/L NT-Pro-B Natriuret Pep pg/mL Total Protein (6.3-8.2) g/dL Albumin (3.5-5.0) g/dL Influenza Type A (PCR) Not Detected (Not Detectd) Influenza Type B (PCR) Not Detected (Not Detectd) RSV (PCR) Not Detected (Not Detectd) SARS-CoV-2 (PCR) Not Detected (Not Detectd) 11/29/23 Range/Units 10:56 WBC (3.8-10.6) k/uL RBC (3.80-5.40) m/uL Hgb (11.4-16.0) gm/dL Hct (34.0-46.0) % MCV (80.0-100.0) fL MCH (25.0-35.0) pg MCHC (31.0-37.0) g/dL RDW (11.5-15.5) % Plt Count (150-450) k/uL MPV Neutrophils % (Manual) % Band Neuts % (Manual) % Lymphocytes % (Manual) % Monocytes % (Manual) % Neutrophils # (Manual) (1.3-7.7) k/uL Lymphocytes # (Manual) (1.0-4.8) k/uL Monocytes # (Manual) (0-1.0) k/uL Nucleated RBCs (0-0) /100 WBC Manual Slide Review Hypochromasia Macrocytosis PT (10.0-12.5) sec INR (<1.2) APTT (22.0-30.0) sec Sodium (137-145) mmol/L Potassium 4.4 (3.5-5.1) mmol/L Chloride (98-107) mmol/L Carbon Dioxide (22-30) mmol/L Anion Gap mmol/L BUN (7-17) mg/dL Creatinine (0.52-1.04) mg/dL Est GFR (CKD-EPI)AfAm (>60 ml/min/1.73 sqM) Est GFR (CKD-EPI)NonAf (>60 ml/min/1.73 sqM) Glucose (74-99) mg/dL Plasma Lactic Acid Kaleb (0.7-2.0) mmol/L Calcium (8.4-10.2) mg/dL Magnesium (1.6-2.3) mg/dL Total Bilirubin (0.2-1.3) mg/dL AST (14-36) U/L ALT (4-34) U/L Alkaline Phosphatase (38-126) U/L NT-Pro-B Natriuret Pep pg/mL Total Protein (6.3-8.2) g/dL Albumin (3.5-5.0) g/dL Influenza Type A (PCR) (Not Detectd) Influenza Type B (PCR) (Not Detectd) RSV (PCR) (Not Detectd) SARS-CoV-2 (PCR) (Not Detectd) - EKG Data -: EKG Interpreted by Me EKG Comments: 12-lead Electrocardiogram Interpretation Note EKG was reviewed and interpreted by myself. 12-lead ECG performed at 0913 is interpreted by me as revealing normal sinus rhythm at a rate of 86 beats per minute. Bigler appears normal. LA interval is 180 ms, QRS duration is 90 ms, QTc is 394 ms.. There were no ST or T wave abnormalities to suggest myocardial ischemia or injury. R wave progression across the precordium was satisfactory. By my interpretation this EKG is non-diagnostic for acute ischemia. Disposition Clinical Impression: COPD (chronic obstructive pulmonary disease), Sepsis, Hypoxic respiratory failure Disposition: ADMITTED IP TO THIS HOSP Condition: Serious Time of Disposition: 11:30
--- NOTE | 2023-11-29 13:52 | ED ---
Medical Decision Making - Lab Data Result diagrams: 11/29/23 09:30 11/29/23 10:56 Lab Results 11/29/23 11/29/23 11/29/23 Range/Units 09:30 09:30 09:30 WBC 11.7 H (3.8-10.6) k/uL RBC 3.44 L (3.80-5.40) m/uL Hgb 11.3 L (11.4-16.0) gm/dL Hct 36.4 (34.0-46.0) % MCV 105.6 H (80.0-100.0) fL MCH 32.7 (25.0-35.0) pg MCHC 31.0 (31.0-37.0) g/dL RDW 15.2 (11.5-15.5) % Plt Count 173 (150-450) k/uL MPV 9.7 Neutrophils % (Manual) 71 % Band Neuts % (Manual) 4 % Lymphocytes % (Manual) 13 % Monocytes % (Manual) 13 % Neutrophils # (Manual) 8.70 H (1.3-7.7) k/uL Lymphocytes # (Manual) 1.52 (1.0-4.8) k/uL Monocytes # (Manual) 1.52 H (0-1.0) k/uL Nucleated RBCs 0 (0-0) /100 WBC Manual Slide Review Performed Hypochromasia Slight Macrocytosis Moderate PT 11.1 (10.0-12.5) sec INR 1.0 (<1.2) APTT 21.8 L (22.0-30.0) sec Sodium 133 L (137-145) mmol/L Potassium 5.4 H (3.5-5.1) mmol/L Chloride 104 (98-107) mmol/L Carbon Dioxide 22 (22-30) mmol/L Anion Gap 7 mmol/L BUN 37 H (7-17) mg/dL Creatinine 1.59 H (0.52-1.04) mg/dL Est GFR (CKD-EPI)AfAm 36 (>60 ml/min/1.73 sqM) Est GFR (CKD-EPI)NonAf 31 (>60 ml/min/1.73 sqM) Glucose 129 H (74-99) mg/dL Plasma Lactic Acid Kaleb (0.7-2.0) mmol/L Calcium 7.8 L (8.4-10.2) mg/dL Magnesium 2.0 (1.6-2.3) mg/dL Total Bilirubin 1.5 H (0.2-1.3) mg/dL AST 44 H (14-36) U/L ALT 25 (4-34) U/L Alkaline Phosphatase 71 (38-126) U/L NT-Pro-B Natriuret Pep 4240 pg/mL Total Protein 6.4 (6.3-8.2) g/dL Albumin 3.2 L (3.5-5.0) g/dL Influenza Type A (PCR) (Not Detectd) Influenza Type B (PCR) (Not Detectd) RSV (PCR) (Not Detectd) SARS-CoV-2 (PCR) (Not Detectd) 11/29/23 11/29/23 11/29/23 Range/Units 09:30 09:30 10:49 WBC (3.8-10.6) k/uL RBC (3.80-5.40) m/uL Hgb (11.4-16.0) gm/dL Hct (34.0-46.0) % MCV (80.0-100.0) fL MCH (25.0-35.0) pg MCHC (31.0-37.0) g/dL RDW (11.5-15.5) % Plt Count (150-450) k/uL MPV Neutrophils % (Manual) % Band Neuts % (Manual) % Lymphocytes % (Manual) % Monocytes % (Manual) % Neutrophils # (Manual) (1.3-7.7) k/uL Lymphocytes # (Manual) (1.0-4.8) k/uL Monocytes # (Manual) (0-1.0) k/uL Nucleated RBCs (0-0) /100 WBC Manual Slide Review Hypochromasia Macrocytosis PT (10.0-12.5) sec INR (<1.2) APTT (22.0-30.0) sec Sodium (137-145) mmol/L Potassium (3.5-5.1) mmol/L Chloride (98-107) mmol/L Carbon Dioxide (22-30) mmol/L Anion Gap mmol/L BUN (7-17) mg/dL Creatinine (0.52-1.04) mg/dL Est GFR (CKD-EPI)AfAm (>60 ml/min/1.73 sqM) Est GFR (CKD-EPI)NonAf (>60 ml/min/1.73 sqM) Glucose (74-99) mg/dL Plasma Lactic Acid Kaleb 1.7 1.2 (0.7-2.0) mmol/L Calcium (8.4-10.2) mg/dL Magnesium (1.6-2.3) mg/dL Total Bilirubin (0.2-1.3) mg/dL AST (14-36) U/L ALT (4-34) U/L Alkaline Phosphatase (38-126) U/L NT-Pro-B Natriuret Pep pg/mL Total Protein (6.3-8.2) g/dL Albumin (3.5-5.0) g/dL Influenza Type A (PCR) Not Detected (Not Detectd) Influenza Type B (PCR) Not Detected (Not Detectd) RSV (PCR) Not Detected (Not Detectd) SARS-CoV-2 (PCR) Not Detected (Not Detectd) 11/29/23 Range/Units 10:56 WBC (3.8-10.6) k/uL RBC (3.80-5.40) m/uL Hgb (11.4-16.0) gm/dL Hct (34.0-46.0) % MCV (80.0-100.0) fL MCH (25.0-35.0) pg MCHC (31.0-37.0) g/dL RDW (11.5-15.5) % Plt Count (150-450) k/uL MPV Neutrophils % (Manual) % Band Neuts % (Manual) % Lymphocytes % (Manual) % Monocytes % (Manual) % Neutrophils # (Manual) (1.3-7.7) k/uL Lymphocytes # (Manual) (1.0-4.8) k/uL Monocytes # (Manual) (0-1.0) k/uL Nucleated RBCs (0-0) /100 WBC Manual Slide Review Hypochromasia Macrocytosis PT (10.0-12.5) sec INR (<1.2) APTT (22.0-30.0) sec Sodium (137-145) mmol/L Potassium 4.4 (3.5-5.1) mmol/L Chloride (98-107) mmol/L Carbon Dioxide (22-30) mmol/L Anion Gap mmol/L BUN (7-17) mg/dL Creatinine (0.52-1.04) mg/dL Est GFR (CKD-EPI)AfAm (>60 ml/min/1.73 sqM) Est GFR (CKD-EPI)NonAf (>60 ml/min/1.73 sqM) Glucose (74-99) mg/dL Plasma Lactic Acid Kaleb (0.7-2.0) mmol/L Calcium (8.4-10.2) mg/dL Magnesium (1.6-2.3) mg/dL Total Bilirubin (0.2-1.3) mg/dL AST (14-36) U/L ALT (4-34) U/L Alkaline Phosphatase (38-126) U/L NT-Pro-B Natriuret Pep pg/mL Total Protein (6.3-8.2) g/dL Albumin (3.5-5.0) g/dL Influenza Type A (PCR) (Not Detectd) Influenza Type B (PCR) (Not Detectd) RSV (PCR) (Not Detectd) SARS-CoV-2 (PCR) (Not Detectd) Critical Care Time Critical Care Time: Yes Total Critical Care Time: 32 Disposition Clinical Impression: COPD (chronic obstructive pulmonary disease), Sepsis, Hypoxic respiratory failure Disposition: ADMITTED IP TO THIS HOSP Condition: Serious
--- NOTE | 2023-11-29 15:36 | P.CNPUL ---
History of Present Illness Consult date: 11/29/23 Reason for consult: COPD History of present illness: This is a 78-year-old female patient with known history of coronary artery disease, COPD, previous history of bypass surgery and mitral valve repair was coming into the hospital because of worsening shortness of breath. The patient is known to me from previous evaluation and hospital visits. Her other comorbidities include hypertension, hyperlipidemia, peripheral vascular disease and previous history of breast cancer requiring mastectomy followed by radiation therapy and chemotherapy back in 1998. She also has scoliosis and history of psoriasis. Noted the patient was in the hospital back in August 2023 for symptoms of claudication and the patient underwent an aortogram with bilateral lower extremity runoffs through the left common femoral artery access and the patient was found to have bilateral superficial femoral artery occlusion with reconstitution above the knee popliteal. The patient was being considered for vascular intervention and based on cardiac history the patient was referred to cardiology and a cardiac catheterization was done on 11/22/2023 and the patient was found to have moderate disease in the distant left main, chronically with an RCA, moderate disease involving the distal codominant circumflex, patent LIU to LAD and patent SVG to OM1 OM with 2 and chronically occluded SVG to RCA. In terms of her COPD, the patient has a baseline FEV1 of around 63% of predicted. This is based on her normal pulmonary function test was done in 2018. She is not smoking. However she is not using any respiratory medication on a regular basis or maintenance. She does have Symbicort at home and I do question her compliance with her Symbicort. She has albuterol nebulizer that she uses on an as-needed basis. She is having issues with cough and congestion and wheezing. Her COPD exacerbated. Her blood work shows a white cell count of 11.7 with a hemoglobin 11.3 and a platelet count of 173. BUN 37 with a creatinine of 1.5 and sodium levels at 133 and a potassium level is 4.4. proBNP level was 4240. The viral screen was negative. The lactic acid level was at 1.7 dropped down to 1.2. The chest x-ray that was done in the emergency department showed COPD without any acute cardiopulmonary abnormalities. There was some cardiomegaly with possibly a component of mild pulm vessel congestion. The patient is currently on Lasix 20 mg p.o. twice a day which is her usual outpatient medication dose. She is also on oxygen and she is currently placed on O2 at 6 to 8 L to maintain saturation above 90%. Review of Systems Constitutional: Reports fatigue, Reports weakness Eyes: denies as per HPI, denies blurred vision, denies bulging eye, denies decreased vision, denies diplopia, denies discharge, denies dry eye, denies irritation, denies itching, denies pain, denies photophobia, denies loss of peripheral vision, denies loss of vision, denies tunnel vision/blind spots Ears: deny: decreased hearing, ear discharge, earache, tinnitus Ears, nose, mouth and throat: Reports as per HPI (Poor dental condition) Breasts: absent: as per HPI, change in shape, gynecomastia, masses, nipple discharge, pain, skin changes, swelling Cardiovascular: Reports claudication, Reports decreased exercise tolerance, Reports dyspnea on exertion, Reports shortness of breath Respiratory: Reports cough, Reports cough with sputum Gastrointestinal: Reports as per HPI Genitourinary: Reports as per HPI Menstruation: Reports as per HPI Musculoskeletal: Reports as per HPI Musculoskeletal: absent: ankle pain, ankle stiffness, ankle swelling Integumentary: Reports as per HPI Neurological: Reports as per HPI Psychiatric: Reports as per HPI Endocrine: Reports as per HPI Hematologic/Lymphatic: Reports as per HPI Allergic/Immunologic: Reports as per HPI Past Medical History Past Medical History: Coronary Artery Disease (CAD), Cancer, COPD, Diabetes Mellitus, Deep Vein Thrombosis (DVT), Hyperlipidemia, Hypertension, Myocardial Infarction (SC), Musculoskeletal Disorder, Renal Disease, Skin Disorder, Thyroid Disorder, Vascular Disorder Additional Past Medical History / Comment(s): hesham leg pain with pins and needles, "Borderline Diabetic." Hx DVT's Pastpartum. Hx right breast cancer with mastectomy, radiation and chemotherapy 1998. Scoliosis. Hx Psoriasis. Dry Gangrene right 4th toe-no longer present. Varicose veins. Edema hesham foot/ankle. Hx colon polyps. Last Myocardial Infarction Date:: 10/2017 History of Any Multi-Drug Resistant Organisms: None Reported Past Surgical History: Breast Surgery, Cardiac Valve Replacement, Coronary Bypass/CABG, Heart Catheterization Additional Past Surgical History / Comment(s): Right mastectomy, CABG 5 vessel 07/07/18, Fem. Pop. 12/25/18, colonoscopies with polypectomy. Past Anesthesia/Blood Transfusion Reactions: No Reported Reaction Additional Past Anesthesia/Blood Transfusion Reaction / Comment(s): No problems with prior blood transfusions. Past Psychological History: Anxiety Smoking Status: Former smoker Past Alcohol Use History: None Reported Past Drug Use History: None Reported - Past Family History Brother(s) Family Medical History: Cancer, Coronary Artery Disease (CAD) Additional Family Medical History / Comment(s): Skin cancer,cardiac stents Medications and Allergies Home Medications Medication Instructions Recorded Confirmed Type Furosemide [Lasix] 20 mg PO BID 10/30/18 11/29/23 History ALPRAZolam [Xanax] 0.25 mg PO DAILY PRN 11/20/18 11/29/23 History Aspirin 81 mg PO DAILY 12/22/18 11/29/23 History Budesonide/Formoterol Fumarate 2 puff PO RT-BID 08/28/23 11/29/23 History [Budesonide-Formoterol 160-4.5] lisinopriL [Zestril] 5 mg PO DAILY 11/19/23 11/29/23 History Albuterol Nebulized [Ventolin 2.5 mg INHALATION RT-QID 11/29/23 11/29/23 History Nebulized] Atorvastatin [Lipitor] 80 mg PO HS 11/29/23 11/29/23 History Isosorbide Mononitrate ER [Imdur] 30 mg PO DAILY 11/29/23 11/29/23 History carvediloL [Coreg] 6.25 mg PO DAILY 11/29/23 11/29/23 History Allergies Allergy/AdvReac Type Severity Reaction Status Date / Time morphine Allergy Hallucinati Verified 11/29/23 10:05 ons Physical Exam Vitals: Vital Signs Temp Pulse Resp BP Pulse Ox 11/29/23 11:11 76 28 H 90 L 11/29/23 10:59 86 28 H 96/51 90 L 11/29/23 10:20 83 11/29/23 10:13 28 H 11/29/23 10:05 73 11/29/23 09:15 28 H 95/49 90 L 11/29/23 09:13 84 L 11/29/23 08:56 98.9 F 71 28 H 93/51 80 L Intake and Output 11/28/23 11/29/23 11/29/23 22:59 06:59 14:59 Other: Weight 72.575 kg GENERAL EXAM: Alert, active, comfortable in no apparent distress. On 6 L of O2 nasal cannula. HEAD: Normocephalic. Atraumatic. EYES: Normal reaction of pupils, equal size. NOSE: Clear with pink turbinates. THROAT: No erythema or exudates. NECK: No masses, no JVD. CHEST: No chest wall deformity. Heart hugger in place. Diminished breath sounds with scant expiratory wheezes throughout the lung field bilaterally. LUNGS: Equal air entry with crackles in the posterior bases. Diminished breath sounds Or wheezes heard throughout the lung villanueva bilaterally. CVS: S1 and S2 normal with no audible murmur, regular rhythm. ABDOMEN: No hepatosplenomegaly, normal bowel sounds, no guarding or rigidity. SPINE: No scoliosis or deformity SKIN: No rashes CENTRAL NERVOUS SYSTEM: No focal deficits, tone is normal in all 4 extremities. EXTREMITIES: There is no peripheral edema. No clubbing, no cyanosis. Peripheral pulses are diminished in the lower extremities bilaterally. Results - Laboratory Findings CBC and BMP: 11/29/23 09:30 11/29/23 10:56 PT/INR, D-dimer PT 11.1 sec (10.0-12.5) 11/29/23 09:30 INR 1.0 (<1.2) 11/29/23 09:30 Abnormal lab findings: Abnormal Labs 11/29/23 11/29/23 11/29/23 09:30 09:30 09:30 WBC 11.7 H RBC 3.44 L Hgb 11.3 L MCV 105.6 H Neutrophils # (Manual) 8.70 H Monocytes # (Manual) 1.52 H APTT 21.8 L Sodium 133 L Potassium 5.4 H BUN 37 H Creatinine 1.59 H Glucose 129 H Calcium 7.8 L Total Bilirubin 1.5 H AST 44 H Albumin 3.2 L - Diagnostic Findings Chest x-ray: image reviewed Assessment and Plan Plan: Acute exacerbation of COPD with secondary bronchospasm wheezing and shortness of breath. Chest x-ray is consistent with cardiomegaly and mild pulm vascular congestion. proBNP level is slightly elevated and the underlying component of CHF cannot be completely excluded. Acute hypoxic respiratory failure and the patient is currently on O2 at 6 L of O2 nasal cannula Shortness of breath secondary to above Acute kidney injury Known history of coronary artery disease with previous history of mild mitral valve regurgitation the patient has undergone 5 vessel bypass surgery and mitral valve annuloplasty. Surgery was done back in 2019. Most recent cardiac catheterization shows patent LIU to LAD and patent SVG to OM1 OM 2 and chronically occluded SVG to RCA. Severe peripheral vascular disease with ongoing issues with claudications Moderate to severe COPD with a baseline FEV1 of 63% of predicted based on the previous spirometry that was done 2019 Carotid artery disease History of breast cancer with previous right mastectomy followed by radiation therapy back in 1998 Scoliosis History of gangrenous toe, post amputation History of psoriasis Hyperlipidemia Plan Continue DuoNeb nebulized treatments [id number] 4 times a day Titrate oxygen flow to maintain saturation above 90% IV Solu-Medrol 60 mg every 6 hours IV Zosyn May benefit from IV Lasix, will monitor the renal function repeat electrolytes tomorrow and for now the patient is on oral Lasix and will intensify diuresis based on renal function. Obtain repeat echocardiogram Resume home medications Will continue to follow
[2023-11-29] MEDS: methylPREDNISolone SOD SUCCI 40 MG/ML 1 ML VIAL IV SCH (15:40)
[2023-11-29] MEDS ORDERED: DEXTROSE 50% SYRINGE 50 ML IVP PRN ×2 (17:37)
[2023-11-29] MEDS ORDERED: ZINC OXIDE PASTE (Z-GUARD) 1 APPLIC TOPICAL PRN (18:05)
--- NOTE | 2023-11-29 18:16 | P.HPIM ---
History of Present Illness H&P Date: 11/29/23 Chief Complaint: Shortness of breath 78-year-old female who presents emergency department complaining of shortness of breath. Her has similar complaints. Cough, congestion for approximately 1 week. He has a history of COPD. States her oxygen typically runs in the 80s at home. Denies any chest pain but does endorse a productive cough of yellowish mucus. States it is progressively gotten worse and presents for further evaluation. Denies any abdominal pain, nausea, vomiting. Has no other acute complaints at this time. Has a history of cardiac bypass, COPD, hypertension, hyperlipidemia. Presents for further evaluation. Was found to be hypoxic with O2 saturation in 80s; patient is placed on supplemental oxygen Her blood work shows a white cell count of 11.7 with a hemoglobin 11.3 and a platelet count of 173. BUN 37 with a creatinine of 1.5 and sodium levels at 133 and a potassium level is 4.4. proBNP level was 4240. The viral screen was negative. The lactic acid level was at 1.7 dropped down to 1.2. The chest x- ray that was done in the emergency department showed COPD without any acute cardiopulmonary abnormalities. There was some cardiomegaly with possibly a component of mild pulm vessel congestion. The patient is currently on Lasix 20 mg p.o. twice a day which is her usual outpatient medication dose. She is also on oxygen and she is currently placed on O2 at 6 to 8 L to maintain saturation above 90%. Review of Systems REVIEW OF SYSTEMS: CONSTITUTIONAL: No fever, no malaise, no fatigue. HEENT: No recent visual problems or hearing problems. Denied any sore throat. CARDIOVASCULAR: No chest pain, orthopnea, PND, no palpitations, no syncope. PULMONARY: No shortness of breath, no cough, no hemoptysis. GASTROINTESTINAL: No diarrhea, no nausea, no vomiting, no abdominal pain. NEUROLOGICAL: No headaches, no weakness, no numbness. HEMATOLOGICAL: Denies any bleeding or petechiae. GENITOURINARY: Denies any burning micturition, frequency, or urgency. MUSCULOSKELETAL/RHEUMATOLOGICAL: Denies any joint pain, swelling, or any muscle pain. ENDOCRINE: Denies any polyuria or polydipsia. The rest of the 14-point review of systems is negative. Past Medical History Past Medical History: Coronary Artery Disease (CAD), Cancer, COPD, Diabetes Mellitus, Deep Vein Thrombosis (DVT), Hyperlipidemia, Hypertension, Myocardial Infarction (MD), Musculoskeletal Disorder, Renal Disease, Skin Disorder, Thyroid Disorder, Vascular Disorder Additional Past Medical History / Comment(s): hesham leg pain with pins and needles, "Borderline Diabetic." Hx DVT's Pastpartum. Hx right breast cancer with mastectomy, radiation and chemotherapy 1998. Scoliosis. Hx Psoriasis. Dry Gangrene right 4th toe-no longer present. Varicose veins. Edema hesham foot/ankle. Hx colon polyps. Last Myocardial Infarction Date:: 10/2017 History of Any Multi-Drug Resistant Organisms: None Reported Past Surgical History: Breast Surgery, Cardiac Valve Replacement, Coronary Bypass/CABG, Heart Catheterization Additional Past Surgical History / Comment(s): Right mastectomy, CABG 5 vessel 07/07/18, Fem. Pop. 12/25/18, colonoscopies with polypectomy. Past Anesthesia/Blood Transfusion Reactions: No Reported Reaction Additional Past Anesthesia/Blood Transfusion Reaction / Comment(s): No problems with prior blood transfusions. Past Psychological History: Anxiety Smoking Status: Former smoker Past Alcohol Use History: None Reported Past Drug Use History: None Reported - Past Family History Brother(s) Family Medical History: Cancer, Coronary Artery Disease (CAD) Additional Family Medical History / Comment(s): Skin cancer,cardiac stents Medications and Allergies Home Medications Medication Instructions Recorded Confirmed Type Furosemide [Lasix] 20 mg PO BID 10/30/18 11/29/23 History ALPRAZolam [Xanax] 0.25 mg PO DAILY PRN 11/20/18 11/29/23 History Aspirin 81 mg PO DAILY 12/22/18 11/29/23 History Budesonide/Formoterol Fumarate 2 puff PO RT-BID 08/28/23 11/29/23 History [Budesonide-Formoterol 160-4.5] lisinopriL [Zestril] 5 mg PO DAILY 11/19/23 11/29/23 History Albuterol Nebulized [Ventolin 2.5 mg INHALATION RT-QID 11/29/23 11/29/23 History Nebulized] Atorvastatin [Lipitor] 80 mg PO HS 11/29/23 11/29/23 History Isosorbide Mononitrate ER [Imdur] 30 mg PO DAILY 05/24/24 05/24/24 History carvediloL [Coreg] 6.25 mg PO DAILY 11/29/23 11/29/23 History Allergies Allergy/AdvReac Type Severity Reaction Status Date / Time morphine Allergy Hallucinati Verified 11/29/23 10:05 ons Physical Exam Vitals: Vital Signs Temp Pulse Resp BP Pulse Ox 11/29/23 12:39 73 11/29/23 12:27 73 11/29/23 12:00 99.1 F 67 18 96/51 86 L 11/29/23 11:11 76 28 H 90 L 11/29/23 10:59 86 28 H 96/51 90 L 11/29/23 10:20 83 11/29/23 10:13 28 H 11/29/23 10:05 73 11/29/23 09:15 28 H 95/49 90 L 11/29/23 09:13 84 L 11/29/23 08:56 98.9 F 71 28 H 93/51 80 L Intake and Output 11/28/23 11/29/23 11/29/23 22:59 06:59 14:59 Other: Weight 72.575 kg General: Appears in mild to moderate respiratory distress. HEAD: Normal with no signs of head trauma. EYES: PERRLA, EOMI, conjunctiva normal, no discharge. ENT: Hearing grossly intact, normal oropharynx. RESPIRATORY: Reduced breath sounds bilaterally with end expiratory wheezing. Hypoxia to 80% on room air. Increased work of breathing. C/V: Regular rate and rhythm. S1 and S2 auscultated, no significant edema, peripheral pulses 2+ and intact throughout ABD: Abd is soft, nontender, nondistended EXT: Normal range of motion, no obvious deformity SKIN: No rashes or lesions observed on exposed skin. NEURO: Alert and oriented x 4. Results CBC & Chem 7: 11/29/23 09:30 11/29/23 10:56 Labs: Abnormal Lab Results - Last 24 Hours (Table) 11/29/23 11/29/23 11/29/23 Range/Units 09:30 09:30 09:30 WBC 11.7 H (3.8-10.6) k/uL RBC 3.44 L (3.80-5.40) m/uL Hgb 11.3 L (11.4-16.0) gm/dL MCV 105.6 H (80.0-100.0) fL Neutrophils # (Manual) 8.70 H (1.3-7.7) k/uL Monocytes # (Manual) 1.52 H (0-1.0) k/uL APTT 21.8 L (22.0-30.0) sec Sodium 133 L (137-145) mmol/L Potassium 5.4 H (3.5-5.1) mmol/L BUN 37 H (7-17) mg/dL Creatinine 1.59 H (0.52-1.04) mg/dL Glucose 129 H (74-99) mg/dL Calcium 7.8 L (8.4-10.2) mg/dL Total Bilirubin 1.5 H (0.2-1.3) mg/dL AST 44 H (14-36) U/L Albumin 3.2 L (3.5-5.0) g/dL Assessment and Plan Assessment: 1. Acute hypoxic respiratory failure/pneumonia; patient is currently requiring O2 at 6 L per nasal cannula to maintain saturation above 92% --Patient is currently on IV Zosyn 3.375 g IV every 8 hours; [facility] to dose --Pulmonary service on board 2. Acute exacerbation COPD -Patient has history of moderate to severe COPD --Chest x-ray reveals cardiomegaly with mild pulmonary vascular congestion -- Patient has been placed on IV Solu-Medrol 60 mg every 6 hours; DuoNeb nebulizer treatments 4 times daily and as needed -We will continue to titrate FiO2 keeping O2 saturation greater than 92% 3. Acute renal injury; patient received Lasix for pulmonary vascular congestion; we will avoid nephrotoxins and hypotension; monitor strict LEONID's, daily weights, renal function electrolytes 4. Coronary artery disease; patient is status post CABG x 5 in 2019; most recent cardiac catheterization completed reveals patent conroy to LAD and patent SVG to OM1 OM 2 and chronically occluded SVG to RCA -Patient stable on aspirin, statins, Coreg and Imdur 5. Severe peripheral vascular occlusive disease; continue with aspirin and Lipitor 80 mg daily 6. Hyperlipidemia; Lipitor 80 mg p.o. nightly 7. Hypertension; lisinopril 5 mg daily; Coreg 6.25 mg daily 8. History of CHF; chest x-ray reveals mild pulmonary vascular congestion; patient is currently on Lasix 20 mg twice daily; will continue with current therapy and monitor strict LEONID's and daily weights DVT prophylaxis; subcu heparin CODE STATUS; full code
[2023-11-29 19:22] LABS: Glucose,Whole Blood 226 mg/dL (70-110)
[2023-11-29] MEDS: HEPARIN SODIUM,PORCINE 5,000 UNIT/ML 1 ML VIAL SQ SCH (19:50)
[2023-11-29] MEDS: ALPRAZolam 0.25 MG TAB PO PRN (19:50)
[2023-11-29] MEDS: ATORVASTATIN 80 MG TAB PO SCH (19:50)
[2023-11-29] MEDS: INSULIN ASPART (NovoLOG) 100 UNIT/ML VIAL SQ SCH (19:50)
[2023-11-29] MEDS: FUROSEMIDE 20 MG TAB PO SCH (19:50)
[2023-11-29] MEDS: SYMBICORT 160-4.5 MCG INHALER INHALATION SCH (20:36)
[2023-11-29] MEDS: ACETAMINOPHEN TAB 325 MG TAB PO PRN (23:11)
[2023-11-30] MEDS: SODIUM CHLORIDE 0.9% 1,000 ML IV SCH (01:00)
[2023-11-30 06:18] LABS: Glucose,Whole Blood 166 mg/dL (70-110)
[2023-11-30 08:46] LABS: Basophils % (A) 0 %; Eosinophils % (A) 0 %; HCT 35.6 % (34.0-46.0); HGB 10.9 gm/dL (11.4-16.0); Hypochromasia Moderate; Lymphocytes # (A) 0.8 k/uL (1.0-4.8); Lymphocytes % (A) 9 %; MCH 32.7 pg (25.0-35.0); MCHC 30.6 g/dL (31.0-37.0); MCV 106.8 fL (80.0-100.0); Macrocytosis Moderate; Mean Platelet Volume 9.8; Monocytes # (A) 0.3 k/uL (0-1.0); Monocytes % (A) 4 %; Neutrophils # (A) 7.9 k/uL (1.3-7.7); Neutrophils % (A) 86 %; Platelet Count 168 k/uL (150-450); RBC 3.33 m/uL (3.80-5.40); RDW 14.7 % (11.5-15.5); WBC 9.2 k/uL (3.8-10.6)
[2023-11-30 08:59] LABS: ALT 34 U/L (4-34); AST 51 U/L (14-36); African American GFR (CKD) 44 (>60 ml/min/1.73 sqM); Alkaline Phosphatase 82 U/L (38-126); Anion Gap 7 mmol/L; Blood Urea Nitrogen 34 mg/dL (7-17); Calcium 7.2 mg/dL (8.4-10.2); Carbon Dioxide 20 mmol/L (22-30); Chloride 110 mmol/L (98-107); Glucose 145 mg/dL (74-99); Non-African American GFR(CKD) 39 (>60 ml/min/1.73 sqM); Potassium 4.2 mmol/L (3.5-5.1); Sodium 137 mmol/L (137-145); Total Bilirubin 0.6 mg/dL (0.2-1.3); Total Protein 5.8 g/dL (6.3-8.2)
[2023-11-30] MEDS: lisinopriL 5 MG TAB PO SCH (10:51)
[2023-11-30] MEDS: carvediloL 6.25 MG TAB PO SCH (10:51)
[2023-11-30] MEDS: ASPIRIN 81 MG PO SCH (10:52)
[2023-11-30] MEDS: ISOSORBIDE MONONITRATE ER 30 MG TAB.ER.24H PO SCH (10:52)
[2023-11-30 11:50] LABS: Glucose,Whole Blood 315 mg/dL (70-110)
[2023-11-30] MEDS: FUROSEMIDE 10 MG/ML 4 ML VIAL IV SCH (11:55)
[2023-11-30] MEDS: VANCOMYCIN 1,250 MG in SODIUM CHLORIDE 0.9% 250 ML IVPB SCH (11:55)
--- NOTE | 2023-11-30 14:02 | P.PN ---
Subjective Progress Note Date: 11/30/23 This is a 78-year-old female patient with known history of coronary artery disease, COPD, previous history of bypass surgery and mitral valve repair was coming into the hospital because of worsening shortness of breath. The patient is known to me from previous evaluation and hospital visits. Her other comorbidities include hypertension, hyperlipidemia, peripheral vascular disease and previous history of breast cancer requiring mastectomy followed by radiation therapy and chemotherapy back in 1998. She also has scoliosis and history of psoriasis. Noted the patient was in the hospital back in August 2023 for symptoms of claudication and the patient underwent an aortogram with bilateral lower extremity runoffs through the left common femoral artery access and the patient was found to have bilateral superficial femoral artery occlusion with reconstitution above the knee popliteal. The patient was being considered for vascular intervention and based on cardiac history the patient was referred to cardiology and a cardiac catheterization was done on 11/22/2023 and the patient was found to have moderate disease in the distant left main, chronically with an RCA, moderate disease involving the distal codominant circumflex, patent LIU to LAD and patent SVG to OM1 OM with 2 and chronically occluded SVG to RCA. In terms of her COPD, the patient has a baseline FEV1 of around 63% of predicted. This is based on her normal pulmonary function test was done in 2018. She is not smoking. However she is not using any respiratory medication on a regular basis or maintenance. She does have Symbicort at home and I do question her compliance with her Symbicort. She has albuterol nebulizer that she uses on an as-needed basis. She is having issues with cough and congestion and wheezing. Her COPD exacerbated. Her blood work shows a white cell count of 11.7 with a hemoglobin 11.3 and a platelet count of 173. BUN 37 with a creatinine of 1.5 and sodium levels at 133 and a potassium level is 4.4. proBNP level was 4240. The viral screen was negative. The lactic acid level was at 1.7 dropped down to 1.2. The chest x-ray that was done in the emergency department showed COPD without any acute cardiopulmonary abnormalities. There was some cardiomegaly with possibly a component of mild pulm vessel congestion. The patient is currently on Lasix 20 mg p.o. twice a day which is her usual outpatient medication dose. She is also on oxygen and she is currently placed on O2 at 6 to 8 L to maintain saturation above 90%. On today's evaluation of 11/30/2023, the patient is feeling less short of breath compared to yesterday. She remains on oxygen 60s per minute nasal cannula. Still bronchospastic and wheezy although less compared to yesterday. Remains on DuoNeb updrafts. Remains on Symbicort and IV Solu-Medrol 40 mg every 8 hours. The patient is also on Zosyn and vancomycin. On her blood work, there is improvement in renal function creatinine is down to 1.33 with a BUN of 34. Sodium levels at 137. White cell count is 9.2 with a hemoglobin of 10.9. Echocardiogram was ordered and the results are still pending for now. No other significant events overnight. She is communicating. Alert and awake. No chest pain. Objective - Vital Signs Vital signs: Vital Signs Temp 98.9 F 11/30/23 03:18 Pulse 60 11/30/23 08:34 Resp 24 11/30/23 03:18 BP 111/56 11/30/23 03:18 Pulse Ox 92 L 11/30/23 08:23 FiO2 Intake & Output 11/29/23 11/30/23 11/30/23 18:59 06:59 18:59 Intake Total 200 Balance 200 Weight 72.575 kg Intake: Intake, IV Titration 200 Amount Piperacillin-Tazobactam 3 100 .375 gm In Sodium Chloride 0.9% 100 ml @ 25 mls/hr IVPB Q8HR [facility] Rx# :[id number] Sodium Chloride 0.9% 1, 100 000 ml @ 100 mls/hr IV . Q10H [facility] Rx#:[id number] Other: Voiding Method External Catheter External Catheter - Exam GENERAL EXAM: Alert, active, comfortable in no apparent distress. On 6/7 L of O2 nasal cannula. HEAD: Normocephalic. Atraumatic. EYES: Normal reaction of pupils, equal size. NOSE: Clear with pink turbinates. THROAT: No erythema or exudates. NECK: No masses, no JVD. CHEST: No chest wall deformity. Heart hugger in place. Diminished breath sounds with scant expiratory wheezes throughout the lung field bilaterally. LUNGS: Equal air entry with crackles in the posterior bases. Diminished breath sounds Or wheezes heard throughout the lung villanueva bilaterally. CVS: S1 and S2 normal with no audible murmur, regular rhythm. ABDOMEN: No hepatosplenomegaly, normal bowel sounds, no guarding or rigidity. SPINE: No scoliosis or deformity SKIN: No rashes CENTRAL NERVOUS SYSTEM: No focal deficits, tone is normal in all 4 extremities. EXTREMITIES: There is no peripheral edema. No clubbing, no cyanosis. Peripheral pulses are diminished in the lower extremities bilaterally. - Labs CBC & Chem 7: 11/30/23 07:43 11/30/23 07:43 Labs: Abnormal Lab Results - Last 24 Hours (Table) 11/29/23 11/29/23 11/30/23 Range/Units 09:30 19:21 06:17 RBC (3.80-5.40) m/uL Hgb (11.4-16.0) gm/dL MCV (80.0-100.0) fL MCHC (31.0-37.0) g/dL Neutrophils # (1.3-7.7) k/uL Neutrophils # (Manual) 8.70 H (1.3-7.7) k/uL Lymphocytes # (1.0-4.8) k/uL Monocytes # (Manual) 1.52 H (0-1.0) k/uL Chloride (98-107) mmol/L Carbon Dioxide (22-30) mmol/L BUN (7-17) mg/dL Creatinine (0.52-1.04) mg/dL Glucose (74-99) mg/dL POC Glucose (mg/dL) 226 H 166 H (70-110) mg/dL Calcium (8.4-10.2) mg/dL AST (14-36) U/L Total Protein (6.3-8.2) g/dL Albumin (3.5-5.0) g/dL 11/30/23 11/30/23 Range/Units 07:43 07:43 RBC 3.33 L (3.80-5.40) m/uL Hgb 10.9 L (11.4-16.0) gm/dL MCV 106.8 H (80.0-100.0) fL MCHC 30.6 L (31.0-37.0) g/dL Neutrophils # 7.9 H (1.3-7.7) k/uL Neutrophils # (Manual) (1.3-7.7) k/uL Lymphocytes # 0.8 L (1.0-4.8) k/uL Monocytes # (Manual) (0-1.0) k/uL Chloride 110 H (98-107) mmol/L Carbon Dioxide 20 L (22-30) mmol/L BUN 34 H (7-17) mg/dL Creatinine 1.33 H (0.52-1.04) mg/dL Glucose 145 H (74-99) mg/dL POC Glucose (mg/dL) (70-110) mg/dL Calcium 7.2 L (8.4-10.2) mg/dL AST 51 H (14-36) U/L Total Protein 5.8 L (6.3-8.2) g/dL Albumin 3.0 L (3.5-5.0) g/dL Assessment and Plan Plan: Acute exacerbation of COPD with secondary bronchospasm wheezing and shortness of breath. Chest x-ray is consistent with cardiomegaly and mild pulm vascular congestion. proBNP level is slightly elevated and the underlying component of CHF cannot be completely excluded. Acute hypoxic respiratory failure and the patient is currently on O2 at 7 L of oxygen nasal cannula Shortness of breath secondary to above Acute kidney injury, creatinine is improving Known history of coronary artery disease with previous history of mild mitral valve regurgitation the patient has undergone 5 vessel bypass surgery and mitral valve annuloplasty. Surgery was done back in 2019. Most recent cardiac catheterization shows patent LIU to LAD and patent SVG to OM1 OM 2 and chronically occluded SVG to RCA. Severe peripheral vascular disease with ongoing issues with claudications Moderate to severe COPD with a baseline FEV1 of 63% of predicted based on the previous spirometry that was done 2019 Carotid artery disease History of breast cancer with previous right mastectomy followed by radiation therapy back in 1998 Scoliosis History of gangrenous toe, post amputation History of psoriasis Hyperlipidemia Plan Continue DuoNeb nebulized treatments [id number] 4 times a day Titrate oxygen flow to maintain saturation above 90% IV Solu-Medrol 60 mg every 6 hours IV Zosyn Start the patient on IV Lasix 40 mg every 12 hours Obtain repeat echocardiogram Resume home medications Will continue to follow
[2023-11-30 16:28] LABS: Glucose,Whole Blood 205 mg/dL (70-110)
--- NOTE | 2023-11-30 17:05 | P.PN ---
Subjective Progress Note Date: 11/30/23 78-year-old female who presents emergency department complaining of shortness of breath. Her has similar complaints. Cough, congestion for approximately 1 week. He has a history of COPD. States her oxygen typically runs in the 80s at home. Denies any chest pain but does endorse a productive cough of yellowish mucus. States it is progressively gotten worse and presents for further evaluation. Denies any abdominal pain, nausea, vomiting. Has no other acute complaints at this time. Has a history of cardiac bypass, COPD, hypertension, hyperlipidemia. Presents for further evaluation. Was found to be hypoxic with O2 saturation in 80s; patient is placed on supplemental oxygen Her blood work shows a white cell count of 11.7 with a hemoglobin 11.3 and a platelet count of 173. BUN 37 with a creatinine of 1.5 and sodium levels at 133 and a potassium level is 4.4. proBNP level was 4240. The viral screen was negative. The lactic acid level was at 1.7 dropped down to 1.2. The chest x- ray that was done in the emergency department showed COPD without any acute cardiopulmonary abnormalities. There was some cardiomegaly with possibly a component of mild pulm vessel congestion. The patient is currently on Lasix 20 mg p.o. twice a day which is her usual outpatient medication dose. She is also on oxygen and she is currently placed on O2 at 6 to 8 L to maintain saturation above 90%. Objective - Vital Signs Vital signs: Vital Signs Temp 97.5 F L 11/30/23 09:40 Pulse 64 11/30/23 11:35 Resp 16 11/30/23 09:40 BP 128/65 11/30/23 09:40 Pulse Ox 92 L 11/30/23 09:40 FiO2 Intake & Output 11/29/23 11/30/23 11/30/23 18:59 06:59 18:59 Intake Total 200 Balance 200 Weight 72.575 kg Intake: Intake, IV Titration 200 Amount Piperacillin-Tazobactam 3 100 .375 gm In Sodium Chloride 0.9% 100 ml @ 25 mls/hr IVPB Q8HR [facility] Rx# :[id number] Sodium Chloride 0.9% 1, 100 000 ml @ 100 mls/hr IV . Q10H [facility] Rx#:[id number] Other: Voiding Method External Catheter External Catheter External Catheter - Exam General: Appears in mild to moderate respiratory distress. HEAD: Normal with no signs of head trauma. EYES: PERRLA, EOMI, conjunctiva normal, no discharge. ENT: Hearing grossly intact, normal oropharynx. RESPIRATORY: Reduced breath sounds bilaterally with end expiratory wheezing. Hypoxia to 80% on room air. Increased work of breathing. C/V: Regular rate and rhythm. S1 and S2 auscultated, no significant edema, peripheral pulses 2+ and intact throughout ABD: Abd is soft, nontender, nondistended EXT: Normal range of motion, no obvious deformity SKIN: No rashes or lesions observed on exposed skin. NEURO: Alert and oriented x 4. - Labs CBC & Chem 7: 11/30/23 07:43 11/30/23 07:43 Labs: Abnormal Lab Results - Last 24 Hours (Table) 11/29/23 11/30/23 11/30/23 Range/Units 19:21 06:17 07:43 RBC (3.80-5.40) m/uL Hgb (11.4-16.0) gm/dL MCV (80.0-100.0) fL MCHC (31.0-37.0) g/dL Neutrophils # (1.3-7.7) k/uL Lymphocytes # (1.0-4.8) k/uL Chloride 110 H (98-107) mmol/L Carbon Dioxide 20 L (22-30) mmol/L BUN 34 H (7-17) mg/dL Creatinine 1.33 H (0.52-1.04) mg/dL Glucose 145 H (74-99) mg/dL POC Glucose (mg/dL) 226 H 166 H (70-110) mg/dL Calcium 7.2 L (8.4-10.2) mg/dL AST 51 H (14-36) U/L Total Protein 5.8 L (6.3-8.2) g/dL Albumin 3.0 L (3.5-5.0) g/dL 11/30/23 Range/Units 07:43 RBC 3.33 L (3.80-5.40) m/uL Hgb 10.9 L (11.4-16.0) gm/dL MCV 106.8 H (80.0-100.0) fL MCHC 30.6 L (31.0-37.0) g/dL Neutrophils # 7.9 H (1.3-7.7) k/uL Lymphocytes # 0.8 L (1.0-4.8) k/uL Chloride (98-107) mmol/L Carbon Dioxide (22-30) mmol/L BUN (7-17) mg/dL Creatinine (0.52-1.04) mg/dL Glucose (74-99) mg/dL POC Glucose (mg/dL) (70-110) mg/dL Calcium (8.4-10.2) mg/dL AST (14-36) U/L Total Protein (6.3-8.2) g/dL Albumin (3.5-5.0) g/dL Assessment and Plan Assessment: 1. Acute hypoxic respiratory failure/pneumonia; patient is currently requiring O2 at 6 L per nasal cannula to maintain saturation above 92% --Patient is currently on IV Zosyn 3.375 g IV every 8 hours; Comycin pharmacy to dose --Pulmonary service on board 2. Acute exacerbation COPD -Patient has history of moderate to severe COPD --Chest x-ray reveals cardiomegaly with mild pulmonary vascular congestion -- Patient has been placed on IV Solu-Medrol 60 mg every 6 hours; DuoNeb n ebulizer treatments 4 times daily and as needed -We will continue to titrate FiO2 keeping O2 saturation greater than 92% 3. Acute renal injury; patient received Lasix for pulmonary vascular congesti on; we will avoid nephrotoxins and hypotension; monitor strict LEONID's, daily weights, renal function electrolytes 4. Coronary artery disease; patient is status post CABG x 5 in 2019; most recent cardiac catheterization completed reveals patent conroy to LAD and patent SVG to OM1 OM 2 and chronically occluded SVG to RCA -Patient stable on aspirin, statins, Coreg and Imdur 5. Severe peripheral vascular occlusive disease; continue with aspirin and Lipitor 80 mg daily 6. Hyperlipidemia; Lipitor 80 mg p.o. nightly 7. Hypertension; lisinopril 5 mg daily; Coreg 6.25 mg daily 8. History of CHF; chest x-ray reveals mild pulmonary vascular congestion; patient is currently on Lasix 20 mg twice daily; will continue with current therapy and monitor strict LEONID's and daily weights DVT prophylaxis; subcu heparin CODE STATUS; full code
[2023-11-30 20:11] LABS: Glucose,Whole Blood 165 mg/dL (70-110)
[2023-11-30 20:32] LABS: Appearance,Urine Clear (Clear); Bacteria,Urine Rare /hpf; Bilirubin,Urine Negative (Negative); Blood,Urine Negative (Negative); Color,Urine Colorless; Glucose,Urine (UA) Negative (Negative); Hyaline Casts,Urine 1 /lpf (0-2); Ketones,Urine Negative (Negative); Leukocyte Esterase,Urine Moderate (Negative); Nitrite,Urine Negative (Negative); Protein,Urine Negative (Negative); RBC,Urine <1 /hpf (0-5); Specific Gravity,Urine 1.006 (1.001-1.035); Squamous Epithelial Cell,Urine <1 /hpf (0-4); Urobilinogen,Urine <2.0 mg/dL (<2.0); WBC,Urine 1 /hpf (0-5)
[2023-12-01 05:59] LABS: Glucose,Whole Blood 180 mg/dL (70-110)
[2023-12-01 09:51] LABS: African American GFR (CKD) 36 (>60 ml/min/1.73 sqM); Anion Gap 11 mmol/L; Blood Urea Nitrogen 41 mg/dL (7-17); Calcium 7.1 mg/dL (8.4-10.2); Carbon Dioxide 19 mmol/L (22-30); Chloride 108 mmol/L (98-107); Glucose 170 mg/dL (74-99); Non-African American GFR(CKD) 31 (>60 ml/min/1.73 sqM); Potassium 3.7 mmol/L (3.5-5.1); Sodium 138 mmol/L (137-145)
[2023-12-01 11:08] LABS: Glucose,Whole Blood 164 mg/dL (70-110)
--- NOTE | 2023-12-01 14:31 | P.PN ---
Subjective Progress Note Date: 12/01/23 This is a 78-year-old female patient with known history of coronary artery disease, COPD, previous history of bypass surgery and mitral valve repair was coming into the hospital because of worsening shortness of breath. The patient is known to me from previous evaluation and hospital visits. Her other comorbidities include hypertension, hyperlipidemia, peripheral vascular disease and previous history of breast cancer requiring mastectomy followed by radiation therapy and chemotherapy back in 1998. She also has scoliosis and history of psoriasis. Noted the patient was in the hospital back in August 2023 for symptoms of claudication and the patient underwent an aortogram with bilateral lower extremity runoffs through the left common femoral artery access and the patient was found to have bilateral superficial femoral artery occlusion with reconstitution above the knee popliteal. The patient was being considered for vascular intervention and based on cardiac history the patient was referred to cardiology and a cardiac catheterization was done on 11/22/2023 and the patient was found to have moderate disease in the distant left main, chronically with an RCA, moderate disease involving the distal codominant circumflex, patent LIU to LAD and patent SVG to OM1 OM with 2 and chronically occluded SVG to RCA. In terms of her COPD, the patient has a baseline FEV1 of around 63% of predicted. This is based on her normal pulmonary function test was done in 2018. She is not smoking. However she is not using any respiratory medication on a regular basis or maintenance. She does have Symbicort at home and I do question her compliance with her Symbicort. She has albuterol nebulizer that she uses on an as-needed basis. She is having issues with cough and congestion and wheezing. Her COPD exacerbated. Her blood work shows a white cell count of 11.7 with a hemoglobin 11.3 and a platelet count of 173. BUN 37 with a creatinine of 1.5 and sodium levels at 133 and a potassium level is 4.4. proBNP level was 4240. The viral screen was negative. The lactic acid level was at 1.7 dropped down to 1.2. The chest x-ray that was done in the emergency department showed COPD without any acute cardiopulmonary abnormalities. There was some cardiomegaly with possibly a component of mild pulm vessel congestion. The patient is currently on Lasix 20 mg p.o. twice a day which is her usual outpatient medication dose. She is also on oxygen and she is currently placed on O2 at 6 to 8 L to maintain saturation above 90%. On today's evaluation of 11/30/2023, the patient is feeling less short of breath compared to yesterday. She remains on oxygen 60s per minute nasal cannula. Still bronchospastic and wheezy although less compared to yesterday. Remains on DuoNeb updrafts. Remains on Symbicort and IV Solu-Medrol 40 mg every 8 hours. The patient is also on Zosyn and vancomycin. On her blood work, there is improvement in renal function creatinine is down to 1.33 with a BUN of 34. Sodium levels at 137. White cell count is 9.2 with a hemoglobin of 10.9. Echocardiogram was ordered and the results are still pending for now. No other significant events overnight. She is communicating. Alert and awake. No chest pain. 12/01/2023, patient is clinically stable and less short of breath compared to yesterday. She has been weaned down to 3 L of oxygen by nasal cannula. This will be spastic and wheezy. He remains on same medication. BUN is 41 with a creatinine 1.59 and had renal function remains relatively stable. Sodium level is 138 with a potassium level of 3.7 and a serum bicarb is at 19. She was started on IV Lasix yesterday 40 mg every 12 hours. Fluid balance has been -1.2 L over the past 24 hours. The white cell count is at 9.2 with a hemoglobin of 10.9. No new complaints otherwise for now. Remains on Symbicort and DuoNeb updrafts. Remains on IV Solu-Medrol 40 mg. Hours. Remains on Zosyn and vancomycin. The blood cultures have been negative. He patient has no complaints. She reports that she is improving. Objective - Vital Signs Vital signs: Vital Signs Temp 97.5 F L 12/01/23 08:00 Pulse 64 12/01/23 11:33 Resp 18 12/01/23 11:29 BP 118/58 12/01/23 11:29 Pulse Ox 94 L 12/01/23 11:29 FiO2 Intake & Output 11/30/23 12/01/23 12/01/23 18:59 06:59 18:59 Intake Total 780 1138 Output Total 4727 733 0304 Balance -420 -800 88 Intake: Oral 780 1138 Output: Urine 1195 246 1900 Other: Voiding Method External Catheter External Catheter External Catheter # Voids 2 2 # Bowel Movements 1 1 1 - Exam GENERAL EXAM: Alert, active, comfortable in no apparent distress. On 3 L of oxygen nasal cannula. HEAD: Normocephalic. Atraumatic. EYES: Normal reaction of pupils, equal size. NOSE: Clear with pink turbinates. THROAT: No erythema or exudates. NECK: No masses, no JVD. CHEST: No chest wall deformity. Heart hugger in place. Diminished breath sounds with scant expiratory wheezes throughout the lung field bilaterally. LUNGS: Equal air entry with crackles in the posterior bases. Diminished breath sounds Or wheezes heard throughout the lung villanueva bilaterally. CVS: S1 and S2 normal with no audible murmur, regular rhythm. ABDOMEN: No hepatosplenomegaly, normal bowel sounds, no guarding or rigidity. SPINE: No scoliosis or deformity SKIN: No rashes CENTRAL NERVOUS SYSTEM: No focal deficits, tone is normal in all 4 extremities. EXTREMITIES: There is no peripheral edema. No clubbing, no cyanosis. Peripheral pulses are diminished in the lower extremities bilaterally. - Labs CBC & Chem 7: 11/30/23 07:43 12/01/23 08:38 Labs: Abnormal Lab Results - Last 24 Hours (Table) 11/30/23 11/30/23 11/30/23 Range/Units 07:43 11:48 16:26 Chloride (98-107) mmol/L Carbon Dioxide (22-30) mmol/L BUN (7-17) mg/dL Creatinine (0.52-1.04) mg/dL Glucose (74-99) mg/dL POC Glucose (mg/dL) 315 H 205 H (70-110) mg/dL Hemoglobin A1c 6.6 H (<=6.0) % Calcium (8.4-10.2) mg/dL Ur Leukocyte Esterase (Negative) Urine Bacteria (None) /hpf 11/30/23 11/30/23 12/01/23 Range/Units 20:09 20:10 05:57 Chloride (98-107) mmol/L Carbon Dioxide (22-30) mmol/L BUN (7-17) mg/dL Creatinine (0.52-1.04) mg/dL Glucose (74-99) mg/dL POC Glucose (mg/dL) 165 H 180 H (70-110) mg/dL Hemoglobin A1c (<=6.0) % Calcium (8.4-10.2) mg/dL Ur Leukocyte Esterase Moderate H (Negative) Urine Bacteria Rare H (None) /hpf 12/01/23 12/01/23 Range/Units 08:38 11:06 Chloride 108 H (98-107) mmol/L Carbon Dioxide 19 L (22-30) mmol/L BUN 41 H (7-17) mg/dL Creatinine 1.59 H (0.52-1.04) mg/dL Glucose 170 H (74-99) mg/dL POC Glucose (mg/dL) 164 H (70-110) mg/dL Hemoglobin A1c (<=6.0) % Calcium 7.1 L (8.4-10.2) mg/dL Ur Leukocyte Esterase (Negative) Urine Bacteria (None) /hpf Microbiology - Last 24 Hours (Table) 11/29/23 09:30 Blood Culture - Preliminary Blood 11/29/23 09:30 Blood Culture - Preliminary Blood Assessment and Plan Plan: Acute exacerbation of COPD with secondary bronchospasm wheezing and shortness of breath. Chest x-ray is consistent with cardiomegaly and mild pulm vascular congestion. proBNP level is slightly elevated and the underlying component of CHF cannot be completely excluded. Clinically improving and the patient feels less short of breath Acute hypoxic respiratory failure and the patient is currently on O2 at 3, improving L of oxygen nasal cannula Shortness of breath secondary to above Acute kidney injury, creatinine is stable at 1.5 Known history of coronary artery disease with previous history of mild mitral valve regurgitation the patient has undergone 5 vessel bypass surgery and mitral valve annuloplasty. Surgery was done back in 2019. Most recent cardiac catheterization shows patent LIU to LAD and patent SVG to OM1 OM 2 and chronically occluded SVG to RCA. Severe peripheral vascular disease with ongoing issues with claudications Moderate to severe COPD with a baseline FEV1 of 63% of predicted based on the previous spirometry that was done 2019 Carotid artery disease History of breast cancer with previous right mastectomy followed by radiation therapy back in 1998 Scoliosis History of gangrenous toe, post amputation History of psoriasis Hyperlipidemia Plan Continue DuoNeb nebulized treatments [id number] 4 times a day Titrate oxygen flow to maintain saturation above 90% IV Solu-Medrol 60 mg every 6 hours IV Zosyn Continue IV Lasix 40 mg every 12 hours Resume home medications Will continue to follow
[2023-12-01 16:22] LABS: Glucose,Whole Blood 180 mg/dL (70-110)
[2023-12-01 20:24] LABS: Glucose,Whole Blood 187 mg/dL (70-110)
[2023-12-01] MEDS ORDERED: IPRATROPIUM-ALBUTEROL 3 ML NEB INHALATION PRN (20:31)
[2023-12-02 06:12] LABS: Glucose,Whole Blood 189 mg/dL (70-110)
[2023-12-02 07:08] LABS: African American GFR (CKD) 36 (>60 ml/min/1.73 sqM); Anion Gap 8 mmol/L; Blood Urea Nitrogen 46 mg/dL (7-17); Calcium 7.5 mg/dL (8.4-10.2); Carbon Dioxide 27 mmol/L (22-30); Chloride 107 mmol/L (98-107); Glucose 152 mg/dL (74-99); Non-African American GFR(CKD) 31 (>60 ml/min/1.73 sqM); Potassium 4.1 mmol/L (3.5-5.1); Sodium 142 mmol/L (137-145)
[2023-12-02] MEDS: IPRATROPIUM-ALBUTEROL 3 ML NEB INHALATION SCH (09:10)
[2023-12-02 11:28] LABS: Glucose,Whole Blood 121 mg/dL (70-110)
[2023-12-02] MEDS: VANCOMYCIN TROUGH DUE 1 EACH MISC MISCELLANE ONE (12:30)
--- NOTE | 2023-12-02 13:56 | P.PN ---
Subjective Progress Note Date: 12/02/23 78-year-old female who presents emergency department complaining of shortness of breath. Her has similar complaints. Cough, congestion for approximately 1 week. He has a history of COPD. States her oxygen typically runs in the 80s at home. Denies any chest pain but does endorse a productive co ugh of yellowish mucus. States it is progressively gotten worse and presents for further evaluation. Denies any abdominal pain, nausea, vomiting. Has no other acute complaints at this time. Has a history of cardiac bypass, COPD, hypertension, hyperlipidemia. Presents for further evaluation. Was found to be hypoxic with O2 saturation in 80s; patient is placed on supplemental oxygen Her blood work shows a white cell count of 11.7 with a hemoglobin 11.3 and a platelet count of 173. BUN 37 with a creatinine of 1.5 and sodium levels at 133 and a potassium level is 4.4. proBNP level was 4240. The viral screen was negative. The lactic acid level was at 1.7 dropped down to 1.2. The chest x- ray that was done in the emergency department showed COPD without any acute cardiopulmonary abnormalities. There was some cardiomegaly with possibly a component of mild pulm vessel congestion. The patient is currently on Lasix 20 mg p.o. twice a day which is her usual outpatient medication dose. She is also on oxygen and she is currently placed on O2 at 6 to 8 L to maintain saturation above 90%. 12/01. Dr. santamaria took over care. Patient seen and examined. Currently on 2 L of oxygen. Blood work done this morning showed sodium 142, potassium 4.1, BUN 46, creatinine 1.59 REVIEW OF SYSTEMS: CONSTITUTIONAL: No fever, no malaise,. CARDIOVASCULAR: No chest pain, no palpitations, no syncope. PULMONARY: Breathing is improved GASTROINTESTINAL: No diarrhea, no nausea, no vomiting, no abdominal pain. NEUROLOGICAL: No headaches, no weakness, PHYSICAL EXAMINATION: GENERAL: The patient is alert and oriented x3, not in any acute distress. Well developed, well nourished. HEENT: Pupils are round and equally reacting to light. EOMI. No scleral icterus. No conjunctival pallor. Normocephalic, atraumatic. No pharyngeal erythema. No thyromegaly. CARDIOVASCULAR: S1 and S2 present. No murmurs, rubs, or gallops. PULMONARY: Chest is clear to auscultation, no wheezing or crackles. ABDOMEN: Soft, nontender, nondistended, normoactive bowel sounds. No palpable organomegaly. MUSCULOSKELETAL: No joint swelling or deformity. EXTREMITIES: No cyanosis, clubbing, or pedal edema. NEUROLOGICAL: Gross neurological examination did not reveal any focal deficits. SKIN: No rashes. Assessment and plan 1. Acute hypoxic respiratory failure/pneumonia; Continue oxygen supplementation --Patient is currently on IV Zosyn 3.375 g IV every 8 hours; --Pulmonary service on board 2. Acute exacerbation COPD Continue IV Solu-Medrol DuoNeb nebulizer treatments 4 times daily and as needed -We will continue to titrate FiO2 keeping O2 saturation greater than 92% 3. Acute renal injury; monitor strict LEONID's, daily weights, renal function electrolytes 4. Coronary artery disease; patient is status post CABG x 5 in 2019; most recent cardiac catheterization completed reveals patent conroy to LAD and patent SVG to OM1 OM 2 and chronically occluded SVG to RCA -Patient stable on aspirin, statins, Coreg and Imdur 5. Severe peripheral vascular occlusive disease; continue with aspirin and Lipitor 80 mg daily 6. Hyperlipidemia; Lipitor 80 mg p.o. nightly 7. Hypertension; lisinopril 5 mg daily; Coreg 6.25 mg daily 8. History of CHF; chest x-ray reveals mild pulmonary vascular congestion; russ escobar is currently on Lasix 20 mg twice daily; will continue with current therapy and monitor strict LEONID's and daily weights Labs and medication were reviewed.. Continue same treatment. Continue with symptomatic treatment. Resume home medication. Monitor labs and vitals. DVT and GI prophylaxis. Further recommendations as per clinical course of the patient Dictation was produced using [employer] dictation software. please excuse any grammatical, word or spelling errors. Objective - Vital Signs Vital signs: Vital Signs Temp 98.2 F 12/02/23 08:05 Pulse 68 12/02/23 09:22 Resp 18 12/02/23 08:05 BP 129/62 12/02/23 08:05 Pulse Ox 92 L 12/02/23 09:12 FiO2 Intake & Output 12/01/23 12/02/23 12/02/23 18:59 06:59 18:59 Intake Total 2458 Output Total 2150 300 900 Balance 308 -300 -900 Weight 78.2 kg Intake: Oral 2458 Output: Urine 2150 300 900 Other: Voiding Method External Catheter External Catheter External Catheter # Voids 2 4 1 # Bowel Movements 1 1 2 - Labs CBC & Chem 7: 11/30/23 07:43 12/02/23 06:43 Labs: Abnormal Lab Results - Last 24 Hours (Table) 12/01/23 12/01/23 12/01/23 Range/Units 11:06 16:21 20:22 BUN (7-17) mg/dL Creatinine (0.52-1.04) mg/dL Glucose (74-99) mg/dL POC Glucose (mg/dL) 164 H 180 H 187 H (70-110) mg/dL Calcium (8.4-10.2) mg/dL 12/02/23 12/02/23 Range/Units 06:11 06:43 BUN 46 H (7-17) mg/dL Creatinine 1.59 H (0.52-1.04) mg/dL Glucose 152 H (74-99) mg/dL POC Glucose (mg/dL) 189 H (70-110) mg/dL Calcium 7.5 L (8.4-10.2) mg/dL Microbiology - Last 24 Hours (Table) 11/29/23 09:30 Blood Culture - Preliminary Blood 11/29/23 09:30 Blood Culture - Preliminary Blood
--- NOTE | 2023-12-02 14:47 | P.PN ---
Subjective Progress Note Date: 12/02/23 This is a 78-year-old female patient with known history of coronary artery disease, COPD, previous history of bypass surgery and mitral valve repair was coming into the hospital because of worsening shortness of breath. The patient is known to me from previous evaluation and hospital visits. Her other comorbidities include hypertension, hyperlipidemia, peripheral vascular disease and previous history of breast cancer requiring mastectomy followed by radiation therapy and chemotherapy back in 1998. She also has scoliosis and history of psoriasis. Noted the patient was in the hospital back in August 2023 for symptoms of claudication and the patient underwent an aortogram with bilateral lower extremity runoffs through the left common femoral artery access and the patient was found to have bilateral superficial femoral artery occlusion with reconstitution above the knee popliteal. The patient was being considered for vascular intervention and based on cardiac history the patient was referred to cardiology and a cardiac catheterization was done on 11/22/2023 and the patient was found to have moderate disease in the distant left main, chronically with an RCA, moderate disease involving the distal codominant circumflex, patent LIU to LAD and patent SVG to OM1 OM with 2 and chronically occluded SVG to RCA. In terms of her COPD, the patient has a baseline FEV1 of around 63% of predicted. This is based on her normal pulmonary function test was done in 2018. She is not smoking. However she is not using any respiratory medication on a regular basis or maintenance. She does have Symbicort at home and I do question her compliance with her Symbicort. She has albuterol nebulizer that she uses on an as-needed basis. She is having issues with cough and congestion and wheezing. Her COPD exacerbated. Her blood work shows a white cell count of 11.7 with a hemoglobin 11.3 and a platelet count of 173. BUN 37 with a creatinine of 1.5 and sodium levels at 133 and a potassium level is 4.4. proBNP level was 4240. The viral screen was negative. The lactic acid level was at 1.7 dropped down to 1.2. The chest x-ray that was done in the emergency department showed COPD without any acute cardiopulmonary abnormalities. There was some cardiomegaly with possibly a component of mild pulm vessel congestion. The patient is currently on Lasix 20 mg p.o. twice a day which is her usual outpatient medication dose. She is also on oxygen and she is currently placed on O2 at 6 to 8 L to maintain saturation above 90%. On today's evaluation of 11/30/2023, the patient is feeling less short of breath compared to yesterday. She remains on oxygen 60s per minute nasal cannula. Still bronchospastic and wheezy although less compared to yesterday. Remains on DuoNeb updrafts. Remains on Symbicort and IV Solu-Medrol 40 mg every 8 hours. The patient is also on Zosyn and vancomycin. On her blood work, there is improvement in renal function creatinine is down to 1.33 with a BUN of 34. Sodium levels at 137. White cell count is 9.2 with a hemoglobin of 10.9. Echocardiogram was ordered and the results are still pending for now. No other significant events overnight. She is communicating. Alert and awake. No chest pain. 12/01/2023, patient is clinically stable and less short of breath compared to yesterday. She has been weaned down to 3 L of oxygen by nasal cannula. This will be spastic and wheezy. He remains on same medication. BUN is 41 with a creatinine 1.59 and had renal function remains relatively stable. Sodium level is 138 with a potassium level of 3.7 and a serum bicarb is at 19. She was started on IV Lasix yesterday 40 mg every 12 hours. Fluid balance has been -1.2 L over the past 24 hours. The white cell count is at 9.2 with a hemoglobin of 10.9. No new complaints otherwise for now. Remains on Symbicort and DuoNeb updrafts. Remains on IV Solu-Medrol 40 mg. Hours. Remains on Zosyn and vancomycin. The blood cultures have been negative. He patient has no complaints. She reports that she is improving. On 12/02/2023, patient is being seen for a follow-up. Patient is doing well. She is on 2 L of oxygen by nasal cannula. Room air pulse ox dropped down to 82%. She is spinous to diuretics and the patient is currently on IV Lasix and she is in negative fluid balance. She is producing excellent Urine output. BUN is 46 with a creatinine 1.59 and sodium levels at 142. No other complaint. She remains on Zosyn. She remains on IV Solu-Medrol. She remains on DuoNeb updrafts and Symbicort. Objective - Vital Signs Vital signs: Vital Signs Temp 98.2 F 12/02/23 08:05 Pulse 64 12/02/23 11:58 Resp 18 12/02/23 08:05 BP 129/62 12/02/23 08:05 Pulse Ox 92 L 12/02/23 09:12 FiO2 Intake & Output 12/01/23 12/02/23 12/02/23 18:59 06:59 18:59 Intake Total 2458 Output Total 2150 300 900 Balance 308 -300 -900 Weight 78.2 kg Intake: Oral 2458 Output: Urine 2150 300 900 Other: Voiding Method External Catheter External Catheter External Catheter # Voids 2 4 1 # Bowel Movements 1 1 2 - Exam GENERAL EXAM: Alert, active, comfortable in no apparent distress. On 2 L of oxygen nasal cannula. HEAD: Normocephalic. Atraumatic. EYES: Normal reaction of pupils, equal size. NOSE: Clear with pink turbinates. THROAT: No erythema or exudates. NECK: No masses, no JVD. CHEST: No chest wall deformity. Heart hugger in place. Diminished breath sounds with scant expiratory wheezes throughout the lung field bilaterally. LUNGS: Equal air entry with crackles in the posterior bases. Diminished breath sounds Or wheezes heard throughout the lung villanueva bilaterally. CVS: S1 and S2 normal with no audible murmur, regular rhythm. ABDOMEN: No hepatosplenomegaly, normal bowel sounds, no guarding or rigidity. SPINE: No scoliosis or deformity SKIN: No rashes CENTRAL NERVOUS SYSTEM: No focal deficits, tone is normal in all 4 extremities. EXTREMITIES: There is no peripheral edema. No clubbing, no cyanosis. Peripheral pulses are diminished in the lower extremities bilaterally. - Labs CBC & Chem 7: 11/30/23 07:43 12/02/23 06:43 Labs: Abnormal Lab Results - Last 24 Hours (Table) 12/01/23 12/01/23 12/02/23 Range/Units 16:21 20:22 06:11 BUN (7-17) mg/dL Creatinine (0.52-1.04) mg/dL Glucose (74-99) mg/dL POC Glucose (mg/dL) 180 H 187 H 189 H (70-110) mg/dL Calcium (8.4-10.2) mg/dL 05/27/24 05/27/24 Range/Units 06:43 11:26 BUN 46 H (7-17) mg/dL Creatinine 1.59 H (0.52-1.04) mg/dL Glucose 152 H (74-99) mg/dL POC Glucose (mg/dL) 121 H (70-110) mg/dL Calcium 7.5 L (8.4-10.2) mg/dL Microbiology - Last 24 Hours (Table) 11/29/23 09:30 Blood Culture - Preliminary Blood 11/29/23 09:30 Blood Culture - Preliminary Blood Assessment and Plan Plan: Acute exacerbation of COPD with secondary bronchospasm wheezing and shortness of breath. Chest x-ray is consistent with cardiomegaly and mild pulm vascular congestion. proBNP level is slightly elevated and the underlying component of CHF cannot be completely excluded. Clinically improving and the patient feels less short of breath the patient remains on IV Lasix. Acute hypoxic respiratory failure and the patient is currently on O2 at 2, improving L of oxygen nasal cannula Shortness of breath secondary to above, improving Acute kidney injury, creatinine is stable at 1.59 Known history of coronary artery disease with previous history of mild mitral valve regurgitation the patient has undergone 5 vessel bypass surgery and mitral valve annuloplasty. Surgery was done back in 2019. Most recent cardiac catheterization shows patent LIU to LAD and patent SVG to OM1 OM 2 and chronically occluded SVG to RCA. Severe peripheral vascular disease with ongoing issues with claudications Moderate to severe COPD with a baseline FEV1 of 63% of predicted based on the previous spirometry that was done 2019 Carotid artery disease History of breast cancer with previous right mastectomy followed by radiation therapy back in 1998 Scoliosis History of gangrenous toe, post amputation History of psoriasis Hyperlipidemia Plan Continue DuoNeb nebulized treatments [id number] 4 times a day Titrate oxygen flow to maintain saturation above 90% IV Solu-Medrol to be continued and the patient is going to be started on a prednisone burst taper IV Zosyn Continue IV Lasix 40 mg every 12 hours Monitor renal function Oxygenation is improved and the patient is currently on 2 L. Resume home medications Will continue to follow
[2023-12-02] MEDS: predniSONE 20 MG TAB PO SCH (15:52)
[2023-12-02 16:58] LABS: Glucose,Whole Blood 195 mg/dL (70-110)
[2023-12-02 20:39] LABS: Glucose,Whole Blood 186 mg/dL (70-110)
[2023-12-03 06:15] LABS: Glucose,Whole Blood 140 mg/dL (70-110)
[2023-12-03 08:44] LABS: African American GFR (CKD) 42 (>60 ml/min/1.73 sqM); Non-African American GFR(CKD) 36 (>60 ml/min/1.73 sqM)
--- NOTE | 2023-12-03 11:13 | CDI ---
Documentation Clarification Form Date: 12/03/2023 10:53:28 AM From: Dilcia Dunham RN CCDS Phone: [phone] Admit Date: 11/29/2023 12:34:00 PM Patient Name: Alan Sierra Visit Number: [id number] Discharge Date: ATTENTION: The Clinical Documentation Specialists (CDI) and [facility] Coding Staff appreciate your assistance in clarifying documentation. Please respond to the clarification below the line at the bottom and electronically sign. The CDI & [facility] Coding staff will review the response and follow-up if needed. Please note: Queries are made part of the Legal Health Record. If you have any questions, please contact the author of this message via ITS. Dr. Freddy Tolentino Your patient has the documented diagnosis of unspecified CHF 12/01, Medicine note. Additional information regarding the type, acuity of CHF is requested. History/Risk Factors: 78-year-old female presents to the ED with shortness of breath, cough, and congestion for one week. Medical History: CHF, COPD and Severe PVD Clinical Indicators: Medicine note, 12/01: History of CHF; chest x-ray reveals mild pulmonary vascular congestion; Patient is currently on Lasix 20 mg twice daily; will continue with current therapy and monitor strict LEONID's and daily weights. VS/Pulse OX, 11/28: B/P 93/51; HR 71; Temp 98.9 F oral; RR 28; SpO2 80% ra BNP 11/28: 4240 Transesophageal Echocardiogram Results: 06/18/2018 EF 45% Chest X Ray, 11/28: Cardiomegaly and mild pulmonary vascular congestion. Treatment: 11/29 Coreg 6.25mg PO Daily, 11/28 11/29 Lasix 20mg PO BID; 11/29 Lasix 40mg IV Q12H; Daily weights, Strict I and Os In your professional opinion, can you please clarify the acuity and type of CHF if known? [ x ] Acute on Chronic Systolic Heart Failure (reduced EF) [ ] Other, please specify [ ] Unable to determine (Template Last Revised: August 2020) MTDD
[2023-12-03 11:40] LABS: Glucose,Whole Blood 122 mg/dL (70-110)
--- NOTE | 2023-12-03 12:59 | P.PN ---
Subjective Progress Note Date: 12/03/23 78-year-old female who presents emergency department complaining of shortness of breath. Her has similar complaints. Cough, congestion for approximately 1 week. He has a history of COPD. States her oxygen typically runs in the 80s at home. Denies any chest pain but does endorse a productive co ugh of yellowish mucus. States it is progressively gotten worse and presents for further evaluation. Denies any abdominal pain, nausea, vomiting. Has no other acute complaints at this time. Has a history of cardiac bypass, COPD, hypertension, hyperlipidemia. Presents for further evaluation. Was found to be hypoxic with O2 saturation in 80s; patient is placed on supplemental oxygen Her blood work shows a white cell count of 11.7 with a hemoglobin 11.3 and a platelet count of 173. BUN 37 with a creatinine of 1.5 and sodium levels at 133 and a potassium level is 4.4. proBNP level was 4240. The viral screen was negative. The lactic acid level was at 1.7 dropped down to 1.2. The chest x- ray that was done in the emergency department showed COPD without any acute cardiopulmonary abnormalities. There was some cardiomegaly with possibly a component of mild pulm vessel congestion. The patient is currently on Lasix 20 mg p.o. twice a day which is her usual outpatient medication dose. She is also on oxygen and she is currently placed on O2 at 6 to 8 L to maintain saturation above 90%. 12/01. Dr. santamaria took over care. Patient seen and examined. Currently on 2 L of oxygen. Blood work done this morning showed sodium 142, potassium 4.1, BUN 46, creatinine 1.59 12/02. Patient seen and examined. Currently on 5 L of oxygen. States she feels better. Gets short of breath on exertion. REVIEW OF SYSTEMS: CONSTITUTIONAL: No fever, no malaise,. CARDIOVASCULAR: No chest pain, no palpitations, no syncope. PULMONARY: As mentioned above GASTROINTESTINAL: No diarrhea, no nausea, no vomiting, no abdominal pain. NEUROLOGICAL: No headaches, no weakness, PHYSICAL EXAMINATION: GENERAL: The patient is alert and oriented x3, not in any acute distress. Well developed, well nourished. HEENT: Pupils are round and equally reacting to light. EOMI. No scleral icterus. No conjunctival pallor. Normocephalic, atraumatic. No pharyngeal erythema. No thyromegaly. CARDIOVASCULAR: S1 and S2 present. No murmurs, rubs, or gallops. PULMONARY: Coarse breath sound bilaterally no wheezing or crackles. ABDOMEN: Soft, nontender, nondistended, normoactive bowel sounds. No palpable organomegaly. MUSCULOSKELETAL: No joint swelling or deformity. EXTREMITIES: No cyanosis, clubbing, or pedal edema. NEUROLOGICAL: Gross neurological examination did not reveal any focal deficits. SKIN: No rashes. Assessment and plan 1. Acute hypoxic respiratory failure Bacterial pneumonia Acute on chronic systolic CHF Continue oxygen supplementation --Patient is currently on IV Zosyn 3.375 g IV every 8 hours; Strict I's and O's, daily weights, continue IV Lasix 40 mg every 12 --Pulmonary service on board 2. Acute exacerbation COPD Continue IV Solu-Medrol DuoNeb nebulizer treatments 4 times daily and as needed -We will continue to titrate FiO2 keeping O2 saturation greater than 92% 3. Acute renal injury; monitor strict LEONID's, daily weights, renal function electrolytes 4. Coronary artery disease; patient is status post CABG x 5 in 2019; most recent cardiac catheterization completed reveals patent conroy to LAD and patent SVG to OM1 OM 2 and chronically occluded SVG to RCA -Patient stable on aspirin, statins, Coreg and Imdur 5. Severe peripheral vascular occlusive disease; continue with aspirin and Lipitor 80 mg daily 6. Hyperlipidemia; Lipitor 80 mg p.o. nightly 7. Hypertension; lisinopril 5 mg daily; Coreg 6.25 mg daily 8. Acute on chronic systolic CHF; strict I's and O's, daily weights, continue IV Lasix 40 mg every 12 Labs and medication were reviewed.. Continue same treatment. Continue with symptomatic treatment. Resume home medication. Monitor labs and vitals. DVT and GI prophylaxis. Further recommendations as per clinical course of the patient Dictation was produced using [employer] dictation software. please excuse any grammatical, word or spelling errors. Objective - Vital Signs Vital signs: Vital Signs Temp 98.1 F 12/03/23 12:00 Pulse 62 12/03/23 12:32 Resp 20 12/03/23 12:00 BP 157/71 12/03/23 12:00 Pulse Ox 92 L 12/03/23 08:00 FiO2 Intake & Output 0512/03/23 12/03/23 18:59 06:59 18:59 Intake Total 320 540 Output Total 900 2000 Balance -580 -1999 540 Weight 77.5 kg Intake: Oral 320 540 Output: Urine 900 2000 Other: Voiding Method External Catheter External Catheter External Catheter # Voids 1 2 # Bowel Movements 1 - Labs CBC & Chem 7: 11/30/23 07:43 12/03/23 07:37 Labs: Abnormal Lab Results - Last 24 Hours (Table) 12/02/23 12/02/23 12/03/23 Range/Units 16:56 20:37 06:14 Creatinine (0.52-1.04) mg/dL POC Glucose (mg/dL) 195 H 186 H 140 H (70-110) mg/dL 12/03/23 12/03/23 Range/Units 07:37 11:38 Creatinine 1.41 H (0.52-1.04) mg/dL POC Glucose (mg/dL) 122 H (70-110) mg/dL Microbiology - Last 24 Hours (Table) 11/29/23 09:30 Blood Culture - Preliminary Blood 11/29/23 09:30 Blood Culture - Preliminary Blood
--- NOTE | 2023-12-03 15:06 | P.PN ---
Subjective Progress Note Date: 12/03/23 This is a 78-year-old female patient with known history of coronary artery disease, COPD, previous history of bypass surgery and mitral valve repair was coming into the hospital because of worsening shortness of breath. The patient is known to me from previous evaluation and hospital visits. Her other c omorbidities include hypertension, hyperlipidemia, peripheral vascular disease and previous history of breast cancer requiring mastectomy followed by radiation therapy and chemotherapy back in 1998. She also has scoliosis and history of psoriasis. Noted the patient was in the hospital back in August 2023 for symptoms of claudication and the patient underwent an aortogram with bilateral lower extremity runoffs through the left common femoral artery access and the patient was found to have bilateral superficial femoral artery occlusion with reconstitution above the knee popliteal. The patient was being considered for vascular intervention and based on cardiac history the patient was referred to cardiology and a cardiac catheterization was done on 11/22/2023 and the patient was found to have moderate disease in the distant left main, chronically with an RCA, moderate disease involving the distal codominant circumflex, patent LIU to LAD and patent SVG to OM1 OM with 2 and chronically occluded SVG to RCA. In terms of her COPD, the patient has a baseline FEV1 of around 63% of predicted. This is based on her normal pulmonary function test was done in 2018. She is not smoking. However she is not using any respiratory medication on a regular basis or maintenance. She does have Symbicort at home and I do question her compliance with her Symbicort. She has albuterol nebulizer that she uses on an as-needed basis. She is having issues with cough and congestion and wheezing. Her COPD exacerbated. Her blood work shows a white cell count of 11.7 with a hemoglobin 11.3 and a platelet count of 173. BUN 37 with a creatinine of 1.5 and sodium levels at 133 and a potassium level is 4.4. proBNP level was 4240. The viral screen was negative. The lactic acid level was at 1.7 dropped down to 1.2. The chest x-ray that was done in the emergency department showed COPD without any acute cardiopulmonary abnormalities. There was some cardiomegaly with possibly a component of mild pulm vessel congestion. The patient is currently on Lasix 20 mg p.o. twice a day which is her usual outpatient medication dose. She is also on oxygen and she is currently placed on O2 at 6 to 8 L to maintain saturation above 90%. On today's evaluation of 11/30/2023, the patient is feeling less short of breath compared to yesterday. She remains on oxygen 60s per minute nasal cannula. Still bronchospastic and wheezy although less compared to yesterday. Remains on DuoNeb updrafts. Remains on Symbicort and IV Solu-Medrol 40 mg every 8 hours. The patient is also on Zosyn and vancomycin. On her blood work, there is improvement in renal function creatinine is down to 1.33 with a BUN of 34. Sodium levels at 137. White cell count is 9.2 with a hemoglobin of 10.9. Echocardiogram was ordered and the results are still pending for now. No other significant events overnight. She is communicating. Alert and awake. No chest pain. 12/01/2023, patient is clinically stable and less short of breath compared to yesterday. She has been weaned down to 3 L of oxygen by nasal cannula. This will be spastic and wheezy. He remains on same medication. BUN is 41 with a creatinine 1.59 and had renal function remains relatively stable. Sodium level is 138 with a potassium level of 3.7 and a serum bicarb is at 19. She was started on IV Lasix yesterday 40 mg every 12 hours. Fluid balance has been -1.2 L over the past 24 hours. The white cell count is at 9.2 with a hemoglobin of 10.9. No new complaints otherwise for now. Remains on Symbicort and DuoNeb updrafts. Remains on IV Solu-Medrol 40 mg. Hours. Remains on Zosyn and vancomycin. The blood cultures have been negative. He patient has no complaints. She reports that she is improving. On 12/02/2023, patient is being seen for a follow-up. Patient is doing well. She is on 2 L of oxygen by nasal cannula. Room air pulse ox dropped down to 82%. She is spinous to diuretics and the patient is currently on IV Lasix and she is in negative fluid balance. She is producing excellent Urine output. BUN is 46 with a creatinine 1.59 and sodium levels at 142. No other complaint. She remains on Zosyn. She remains on IV Solu-Medrol. She remains on DuoNeb updrafts and Symbicort. The patient is seen today December 03, 2023 in follow-up on the selective care unit. She is currently sitting up in bed. Awake and alert in no acute distress. Denies any worsening shortness of breath, cough or congestion. She is maintaining good O2 saturations in the 90s on 2 L/min per nasal cannula. She is afebrile. Hemodynamically stable. Blood cultures revealed no growth. Creatinine 1.41. GFR 36. Glucose 122. She is continued on DuoNeb ventilations, Symbicort, Zosyn. Remains on IV diuretics. Heparin for DVT prophylaxis. She is currently in a -2.5 L balance. Objective - Vital Signs Vital signs: Vital Signs Temp 98.1 F 12/03/23 12:00 Pulse 62 12/03/23 12:32 Resp 20 12/03/23 12:00 BP 157/71 12/03/23 12:00 Pulse Ox 92 L 12/03/23 08:00 FiO2 Intake & Output 12/02/23 12/03/23 12/03/23 18:59 06:59 18:59 Intake Total 320 1120 Output Total 900 2000 Balance -580 -1999 1120 Weight 77.5 kg Intake: Intake, IV Titration 100 Amount Piperacillin-Tazobactam 3 100 .375 gm In Sodium Chloride 0.9% 100 ml @ 25 mls/hr IVPB Q8HR [facility] Rx# :[id number] Oral 320 1020 Output: Urine 900 2000 Other: Voiding Method External Catheter External Catheter External Catheter # Voids 1 2 # Bowel Movements 1 - Exam GENERAL EXAM: Alert, pleasant 78-year-old female, comfortable in no apparent distress. On 2 L of oxygen nasal cannula. HEAD: Normocephalic. Atraumatic. EYES: Normal reaction of pupils, equal size. NOSE: Clear with pink turbinates. THROAT: No erythema or exudates. NECK: No masses, no JVD. CHEST: No chest wall deformity. LUNGS: Equal air entry with crackles in the posterior bases. Diminished breath sounds Or wheezes heard throughout the lung villanueva bilaterally. CVS: S1 and S2 normal with no audible murmur, regular rhythm. ABDOMEN: No hepatosplenomegaly, normal bowel sounds, no guarding or rigidity. SPINE: No scoliosis or deformity SKIN: No rashes CENTRAL NERVOUS SYSTEM: No focal deficits, tone is normal in all 4 extremities. EXTREMITIES: There is no peripheral edema. No clubbing, no cyanosis. Peripheral pulses are diminished in the lower extremities bilaterally. - Labs CBC & Chem 7: 11/30/23 07:43 12/03/23 07:37 Labs: Abnormal Lab Results - Last 24 Hours (Table) 12/02/23 12/02/23 12/03/23 Range/Units 16:56 20:37 06:14 Creatinine (0.52-1.04) mg/dL POC Glucose (mg/dL) 195 H 186 H 140 H (70-110) mg/dL 12/03/23 12/03/23 Range/Units 07:37 11:38 Creatinine 1.41 H (0.52-1.04) mg/dL POC Glucose (mg/dL) 122 H (70-110) mg/dL Microbiology - Last 24 Hours (Table) 11/29/23 09:30 Blood Culture - Preliminary Blood 11/29/23 09:30 Blood Culture - Preliminary Blood Assessment and Plan Assessment: Acute exacerbation of COPD with secondary bronchospasm wheezing and shortness of breath. Chest x-ray is consistent with cardiomegaly and mild pulm vascular congestion. proBNP level is slightly elevated and the underlying component of CHF cannot be completely excluded. Clinically improving and the patient feels less short of breath the patient remains on IV Lasix. Acute hypoxic respiratory failure and the patient is currently on O2 at 2, improving L of oxygen nasal cannula Acute kidney injury, creatinine is stable at 1.41 Known history of coronary artery disease with previous history of mild mitral valve regurgitation the patient has undergone 5 vessel bypass surgery and mitral valve annuloplasty. Surgery was done back in 2018. Most recent cardiac catheterization shows patent LIU to LAD and patent SVG to OM1 OM 2 and chronically occluded SVG to RCA. Severe peripheral vascular disease with ongoing issues with claudications Moderate to severe COPD with a baseline FEV1 of 63% of predicted based on the previous spirometry that was done 2019 Carotid artery disease History of breast cancer with previous right mastectomy followed by radiation therapy back in 1998 Scoliosis History of gangrenous toe, post amputation History of psoriasis Hyperlipidemia Plan: The patient was seen and evaluated Labs and medications reviewed Stable for discharge from the pulmonary standpoint Continue her home pulmonary medications Complete a course of antibiotics Follow-up in the office in 1 week I have personally seen and examined the patient, performed the documentation and the assessment and plan as written. Number of minutes spent on the visit: 10.
[2023-12-03 16:59] LABS: Glucose,Whole Blood 151 mg/dL (70-110)
[2023-12-03 20:08] LABS: Glucose,Whole Blood 150 mg/dL (70-110)
[2023-12-04 07:39] LABS: Glucose,Whole Blood 116 mg/dL (70-110)
[2023-12-04 12:04] LABS: Glucose,Whole Blood 120 mg/dL (70-110)
--- NOTE | 2023-12-04 12:40 | XR ---
EXAMINATION TYPE: XR chest 1V portable DATE OF EXAM: 12/04/2023 COMPARISON: 11/29/2023 INDICATION: CHF TECHNIQUE: Single frontal view of the chest is obtained. FINDINGS: The heart size is borderline prominent. The pulmonary vasculature is somewhat prominent. Mild diffuse increased lung markings are present. This may be slightly greater in number left lower l obe. Right axillary clips are present. Right mastectomy appears present. Sternotomy wires are in the midline cardiac valve surgery IMPRESSION: 1. Findings could be compatible with mild congestive heart failure. Follow-up recommended
--- NOTE | 2023-12-04 14:17 | P.PN ---
Subjective Progress Note Date: 12/04/23 This is a 78-year-old female patient with known history of coronary artery disease, COPD, previous history of bypass surgery and mitral valve repair was coming into the hospital because of worsening shortness of breath. The patient is known to me from previous evaluation and hospital visits. Her other c omorbidities include hypertension, hyperlipidemia, peripheral vascular disease and previous history of breast cancer requiring mastectomy followed by radiation therapy and chemotherapy back in 1998. She also has scoliosis and history of psoriasis. Noted the patient was in the hospital back in August 2023 for symptoms of claudication and the patient underwent an aortogram with bilateral lower extremity runoffs through the left common femoral artery access and the patient was found to have bilateral superficial femoral artery occlusion with reconstitution above the knee popliteal. The patient was being considered for vascular intervention and based on cardiac history the patient was referred to cardiology and a cardiac catheterization was done on 11/22/2023 and the patient was found to have moderate disease in the distant left main, chronically with an RCA, moderate disease involving the distal codominant circumflex, patent LIU to LAD and patent SVG to OM1 OM with 2 and chronically occluded SVG to RCA. In terms of her COPD, the patient has a baseline FEV1 of around 63% of predicted. This is based on her normal pulmonary function test was done in 2018. She is not smoking. However she is not using any respiratory medication on a regular basis or maintenance. She does have Symbicort at home and I do question her compliance with her Symbicort. She has albuterol nebulizer that she uses on an as-needed basis. She is having issues with cough and congestion and wheezing. Her COPD exacerbated. Her blood work shows a white cell count of 11.7 with a hemoglobin 11.3 and a platelet count of 173. BUN 37 with a creatinine of 1.5 and sodium levels at 133 and a potassium level is 4.4. proBNP level was 4240. The viral screen was negative. The lactic acid level was at 1.7 dropped down to 1.2. The chest x-ray that was done in the emergency department showed COPD without any acute cardiopulmonary abnormalities. There was some cardiomegaly with possibly a component of mild pulm vessel congestion. The patient is currently on Lasix 20 mg p.o. twice a day which is her usual outpatient medication dose. She is also on oxygen and she is currently placed on O2 at 6 to 8 L to maintain saturation above 90%. On today's evaluation of 11/30/2023, the patient is feeling less short of breath compared to yesterday. She remains on oxygen 60s per minute nasal cannula. Still bronchospastic and wheezy although less compared to yesterday. Remains on DuoNeb updrafts. Remains on Symbicort and IV Solu-Medrol 40 mg every 8 hours. The patient is also on Zosyn and vancomycin. On her blood work, there is improvement in renal function creatinine is down to 1.33 with a BUN of 34. Sodium levels at 137. White cell count is 9.2 with a hemoglobin of 10.9. Echocardiogram was ordered and the results are still pending for now. No other significant events overnight. She is communicating. Alert and awake. No chest pain. 12/01/2023, patient is clinically stable and less short of breath compared to yesterday. She has been weaned down to 3 L of oxygen by nasal cannula. This will be spastic and wheezy. He remains on same medication. BUN is 41 with a creatinine 1.59 and had renal function remains relatively stable. Sodium level is 138 with a potassium level of 3.7 and a serum bicarb is at 19. She was started on IV Lasix yesterday 40 mg every 12 hours. Fluid balance has been -1.2 L over the past 24 hours. The white cell count is at 9.2 with a hemoglobin of 10.9. No new complaints otherwise for now. Remains on Symbicort and DuoNeb updrafts. Remains on IV Solu-Medrol 40 mg. Hours. Remains on Zosyn and vancomycin. The blood cultures have been negative. He patient has no complaints. She reports that she is improving. On 12/02/2023, patient is being seen for a follow-up. Patient is doing well. She is on 2 L of oxygen by nasal cannula. Room air pulse ox dropped down to 82%. She is spinous to diuretics and the patient is currently on IV Lasix and she is in negative fluid balance. She is producing excellent Urine output. BUN is 46 with a creatinine 1.59 and sodium levels at 142. No other complaint. She remains on Zosyn. She remains on IV Solu-Medrol. She remains on DuoNeb updrafts and Symbicort. The patient is seen today December 03, 2023 in follow-up on the selective care unit. She is currently sitting up in bed. Awake and alert in no acute distress. Denies any worsening shortness of breath, cough or congestion. She is maintaining good O2 saturations in the 90s on 2 L/min per nasal cannula. She is afebrile. Hemodynamically stable. Blood cultures revealed no growth. Creatinine 1.41. GFR 36. Glucose 122. She is continued on DuoNeb ventilations, Symbicort, Zosyn. Remains on IV diuretics. Heparin for DVT prophylaxis. She is currently in a -2.5 L balance. Patient is seen today December 04, 2023 in follow-up on the regular medical floor. She is currently sitting up in bed. Awake and alert in no acute distress. She is feeling nearly back to her baseline. Chest x-ray continues to show some fluid volume overload. She remains on Lasix 40 mg every 12 hours. She remains on Zosyn. Blood cultures revealed no growth. Blood glucose 120. Remains on bronchodilators. Heparin for DVT prophylaxis. Objective - Vital Signs Vital signs: Vital Signs Temp 97.6 F 12/04/23 07:43 Pulse 84 12/04/23 11:45 Resp 18 12/04/23 08:30 BP 158/67 12/04/23 07:43 Pulse Ox 97 12/04/23 12:00 FiO2 Intake & Output 12/03/23 12/04/23 12/04/23 18:59 06:59 18:59 Intake Total 1238 Balance 1238 Weight 74.6 kg Intake: Intake, IV Titration 100 Amount Piperacillin-Tazobactam 3 100 .375 gm In Sodium Chloride 0.9% 100 ml @ 25 mls/hr IVPB Q8HR [facility] Rx# :[id number] Oral 1138 Other: Voiding Method External Catheter Bedside Commode Bedside Commode # Voids 1 1 1 # Bowel Movements 1 1 - Exam GENERAL EXAM: Alert, 78-year-old female, up in bed, in no apparent distress. On 2 L of oxygen nasal cannula. HEAD: Normocephalic. Atraumatic. EYES: Normal reaction of pupils, equal size. NOSE: Clear with pink turbinates. THROAT: No erythema or exudates. NECK: No masses, no JVD. CHEST: No chest wall deformity. LUNGS: Equal air entry with crackles in the posterior bases. Diminished breath sounds bilaterally. CVS: S1 and S2 normal with no audible murmur, regular rhythm. ABDOMEN: No hepatosplenomegaly, normal bowel sounds, no guarding or rigidity. SPINE: No scoliosis or deformity SKIN: No rashes CENTRAL NERVOUS SYSTEM: No focal deficits, tone is normal in all 4 extremities. EXTREMITIES: There is no peripheral edema. No clubbing, no cyanosis. Peripheral pulses are diminished in the lower extremities bilaterally. - Labs CBC & Chem 7: 11/30/23 07:43 12/03/23 07:37 Labs: Abnormal Lab Results - Last 24 Hours (Table) 12/03/23 12/03/23 12/04/23 Range/Units 16:57 20:07 07:33 POC Glucose (mg/dL) 151 H 150 H 116 H (70-110) mg/dL 12/04/23 Range/Units 12:01 POC Glucose (mg/dL) 120 H (70-110) mg/dL Assessment and Plan Assessment: Acute exacerbation of COPD with secondary bronchospasm wheezing and shortness of breath. Chest x-ray is consistent with cardiomegaly and mild pulmonary vascular congestion. proBNP level is slightly elevated and the underlying component of C HF cannot be completely excluded. Clinically improving and the patient feels less short of breath the patient remains on IV Lasix. Acute hypoxic respiratory failure and the patient is currently on O2 at 2 L of oxygen nasal cannula Acute kidney injury, creatinine is stable at 1.41 Known history of coronary artery disease with previous history of mild mitral valve regurgitation the patient has undergone 5 vessel bypass surgery and mitral valve annuloplasty. Surgery was done back in 2018. Most recent cardiac catheterization shows patent LIU to LAD and patent SVG to OM1 OM 2 and chronically occluded SVG to RCA. Severe peripheral vascular disease with ongoing issues with claudications Moderate to severe COPD with a baseline FEV1 of 63% of predicted based on the previous spirometry that was done 2019 Carotid artery disease History of breast cancer with previous right mastectomy followed by radiation therapy back in 1998 Scoliosis History of gangrenous toe, post amputation History of psoriasis Hyperlipidemia Plan: The patient was seen and evaluated Labs and medications reviewed Chest x-ray reviewed Continue IV diuretics Titrate down the FiO2 as tolerated Continue bronchodilators Probable discharge in the a.m. I have personally seen and examined the patient, performed the documentation and the assessment and plan as written. Number of minutes spent on the visit: 10.
--- NOTE | 2023-12-04 14:27 | P.PN ---
Subjective Progress Note Date: 12/04/23 78-year-old female who presents emergency department complaining of shortness of breath. Her has similar complaints. Cough, congestion for approximately 1 week. He has a history of COPD. States her oxygen typically runs in the 80s at home. Denies any chest pain but does endorse a productive co ugh of yellowish mucus. States it is progressively gotten worse and presents for further evaluation. Denies any abdominal pain, nausea, vomiting. Has no other acute complaints at this time. Has a history of cardiac bypass, COPD, hypertension, hyperlipidemia. Presents for further evaluation. Was found to be hypoxic with O2 saturation in 80s; patient is placed on supplemental oxygen Her blood work shows a white cell count of 11.7 with a hemoglobin 11.3 and a platelet count of 173. BUN 37 with a creatinine of 1.5 and sodium levels at 133 and a potassium level is 4.4. proBNP level was 4240. The viral screen was negative. The lactic acid level was at 1.7 dropped down to 1.2. The chest x- ray that was done in the emergency department showed COPD without any acute cardiopulmonary abnormalities. There was some cardiomegaly with possibly a component of mild pulm vessel congestion. The patient is currently on Lasix 20 mg p.o. twice a day which is her usual outpatient medication dose. She is also on oxygen and she is currently placed on O2 at 6 to 8 L to maintain saturation above 90%. 12/01. Dr. santamaria took over care. Patient seen and examined. Currently on 2 L of oxygen. Blood work done this morning showed sodium 142, potassium 4.1, BUN 46, creatinine 1.59 12/02. Patient seen and examined. Currently on 5 L of oxygen. States she feels better. Gets short of breath on exertion. 12/03. Patient seen and examined. States she feels better compared to yesterday. Shortness of breath is improved, able to maintain conversation without getting short of breath. REVIEW OF SYSTEMS: CONSTITUTIONAL: No fever, no malaise,. CARDIOVASCULAR: No chest pain, no palpitations, no syncope. PULMONARY: As mentioned above GASTROINTESTINAL: No diarrhea, no nausea, no vomiting, no abdominal pain. NEUROLOGICAL: No headaches, no weakness, PHYSICAL EXAMINATION: GENERAL: The patient is alert and oriented x3, not in any acute distress. Well developed, well nourished. HEENT: Pupils are round and equally reacting to light. EOMI. No scleral icterus. No conjunctival pallor. Normocephalic, atraumatic. No pharyngeal erythema. No thyromegaly. CARDIOVASCULAR: S1 and S2 present. No murmurs, rubs, or gallops. PULMONARY: Coarse breath sound bilaterally no wheezing or crackles. ABDOMEN: Soft, nontender, nondistended, normoactive bowel sounds. No palpable organomegaly. MUSCULOSKELETAL: No joint swelling or deformity. EXTREMITIES: No cyanosis, clubbing, or pedal edema. NEUROLOGICAL: Gross neurological examination did not reveal any focal deficits. SKIN: No rashes. Assessment and plan 1. Acute hypoxic respiratory failure Bacterial pneumonia Acute on chronic systolic CHF Continue oxygen supplementation --Patient is currently on IV Zosyn 3.375 g IV every 8 hours; Strict I's and O's, daily weights, continue IV Lasix 40 mg every 12 --Pulmonary service on board 2. Acute exacerbation COPD Continue prednisone DuoNeb nebulizer treatments 4 times daily and as needed -We will continue to titrate FiO2 keeping O2 saturation greater than 92% 3. Acute renal injury; monitor strict LEONID's, daily weights, renal function electrolytes 4. Coronary artery disease; patient is status post CABG x 5 in 2019; most recent cardiac catheterization completed reveals patent conroy to LAD and patent SVG to OM1 OM 2 and chronically occluded SVG to RCA -Patient stable on aspirin, statins, Coreg and Imdur 5. Severe peripheral vascular occlusive disease; continue with aspirin and Lipitor 80 mg daily 6. Hyperlipidemia; Lipitor 80 mg p.o. nightly 7. Hypertension; lisinopril 5 mg daily; Coreg 6.25 mg daily 8. Acute on chronic systolic CHF; strict I's and O's, daily weights, continue IV Lasix 40 mg every 12 Labs and medication were reviewed.. Continue same treatment. Continue with symptomatic treatment. Resume home medication. Monitor labs and vitals. DVT and GI prophylaxis. Further recommendations as per clinical course of the patient Dictation was produced using [employer] dictation software. please excuse any grammatical, word or spelling errors. Objective - Vital Signs Vital signs: Vital Signs Temp 97.6 F 12/04/23 07:43 Pulse 84 12/04/23 11:45 Resp 18 12/04/23 08:30 BP 158/67 12/04/23 07:43 Pulse Ox 97 12/04/23 12:00 FiO2 Intake & Output 12/03/23 12/04/23 12/04/23 18:59 06:59 18:59 Intake Total 1238 Balance 1238 Weight 74.6 kg Intake: Intake, IV Titration 100 Amount Piperacillin-Tazobactam 3 100 .375 gm In Sodium Chloride 0.9% 100 ml @ 25 mls/hr IVPB Q8HR [facility] Rx# :[id number] Oral 1138 Other: Voiding Method External Catheter Bedside Commode Bedside Commode # Voids 1 1 1 # Bowel Movements 1 1 - Labs CBC & Chem 7: 11/30/23 07:43 12/03/23 07:37 Labs: Abnormal Lab Results - Last 24 Hours (Table) 12/03/23 12/03/23 12/04/23 Range/Units 16:57 20:07 07:33 POC Glucose (mg/dL) 151 H 150 H 116 H (70-110) mg/dL 12/04/23 Range/Units 12:01 POC Glucose (mg/dL) 120 H (70-110) mg/dL
[2023-12-04 17:11] LABS: Glucose,Whole Blood 147 mg/dL (70-110)
[2023-12-04 20:10] LABS: Glucose,Whole Blood 272 mg/dL (70-110)
[2023-12-05 07:01] LABS: Glucose,Whole Blood 103 mg/dL (70-110)
[2023-12-05 09:14] LABS: ALT 78 U/L (4-34); AST 32 U/L (14-36); African American GFR (CKD) 52 (>60 ml/min/1.73 sqM); Albumin/Globulin Ratio 1.2; Alkaline Phosphatase 68 U/L (38-126); Anion Gap 8 mmol/L; Blood Urea Nitrogen 49 mg/dL (7-17); Calcium 7.1 mg/dL (8.4-10.2); Carbon Dioxide 25 mmol/L (22-30); Chloride 105 mmol/L (98-107); Globulin 2.5 g/dL; Glucose 81 mg/dL (74-99); Non-African American GFR(CKD) 45 (>60 ml/min/1.73 sqM); Potassium 3.1 mmol/L (3.5-5.1); Sodium 138 mmol/L (137-145); Total Bilirubin 0.6 mg/dL (0.2-1.3); Total Protein 5.5 g/dL (6.3-8.2)
[2023-12-05 09:25] LABS: Basophils # (A) 0.1 k/uL (0-0.2); Basophils % (A) 1 %; Eosinophils # (A) 0.1 k/uL (0-0.7); Eosinophils % (A) 1 %; HCT 30.5 % (34.0-46.0); HGB 10.6 gm/dL (11.4-16.0); Hypochromasia Moderate; Lymphocytes # (A) 1.1 k/uL (1.0-4.8); Lymphocytes % (A) 11 %; MCHC 34.6 g/dL (31.0-37.0); MCV 106.9 fL (80.0-100.0); Macrocytosis Moderate; Mean Platelet Volume 9.5; Monocytes # (A) 0.6 k/uL (0-1.0); Monocytes % (A) 6 %; Neutrophils # (A) 8.3 k/uL (1.3-7.7); Neutrophils % (A) 81 %; Platelet Count 197 k/uL (150-450); RBC 2.86 m/uL (3.80-5.40); RDW 14.8 % (11.5-15.5); WBC 10.2 k/uL (3.8-10.6)
[2023-12-05] MEDS: POTASSIUM CHLORIDE ER 20 MEQ TAB.ER PO STA (10:46)
[2023-12-05 12:20] LABS: Glucose,Whole Blood 117 mg/dL (70-110)
[2023-12-05 13:11] VITALS: BP 126/67; PULSE 91; RESP 18; TEMP 97.8
--- NOTE | 2023-12-05 13:27 | P.DS ---
Providers Date of admission: 11/29/23 12:34 Expected date of discharge: 12/05/23 Attending physician: Jax Campuzano MD Consults: 11/29/23 11:38 Consult Physician Urgent Consulting Provider: Alessio Perez Consult Reason/Comments: copd, hypoxia, pneumonia Do you want consulting provider notified?: Already Contacted Primary care physician: Toby Lantigua Hospital Course: Discharge diagnoses; 1. Acute hypoxic respiratory failure Bacterial pneumonia Acute on chronic systolic CHF Completed course of antibiotics. Discharged on oxygen. Outpatient follow-up with pulmonology 2. Acute exacerbation COPD Continue prednisone taper, breathing treatments 3. Acute renal injury; outpatient follow-up with PCP 4. Coronary artery disease; patient is status post CABG x 5 in 2019; most recent cardiac catheterization completed reveals patent conroy to LAD and patent SVG to OM1 OM 2 and chronically occluded SVG to RCA -Patient stable on aspirin, statins, Coreg and Imdur 5. Severe peripheral vascular occlusive disease; continue with aspirin and Lipitor 80 mg daily 6. Hyperlipidemia; Lipitor 80 mg p.o. nightly 7. Hypertension; lisinopril 5 mg daily; Coreg 6.25 mg daily 8. Acute on chronic systolic CHF; being discharged on home regimen of Lasix Hospital course; 78-year-old female who presents emergency department complaining of shortness of breath. Her has similar complaints. Cough, congestion for approximately 1 week. He has a history of COPD. States her oxygen typically runs in the 80s at home. Denies any chest pain but does endorse a productive cough of yellowish mucus. States it is progressively gotten worse and presents for further evaluation. Denies any abdominal pain, nausea, vomiting. Has no other acute complaints at this time. Has a history of cardiac bypass, COPD, hypertension, hyperlipidemia. Presents for further evaluation. Was found to be hypoxic with O2 saturation in 80s; patient is placed on supplemental oxygen Her blood work shows a white cell count of 11.7 with a hemoglobin 11.3 and a platelet count of 173. BUN 37 with a creatinine of 1.5 and sodium levels at 133 and a potassium level is 4.4. proBNP level was 4240. The viral screen was negative. The lactic acid level was at 1.7 dropped down to 1.2. The chest x- ray that was done in the emergency department showed COPD without any acute cardiopulmonary abnormalities. There was some cardiomegaly with possibly a component of mild pulm vessel congestion. The patient is currently on Lasix 20 mg p.o. twice a day which is her usual outpatient medication dose. She is also on oxygen and she is currently placed on O2 at 6 to 8 L to maintain saturation above 90%. 12/01. Dr. santamaria took over care. Patient seen and examined. Currently on 2 L of oxygen. Blood work done this morning showed sodium 142, potassium 4.1, BUN 46, creatinine 1.59 12/02. Patient seen and examined. Currently on 5 L of oxygen. States she feels better. Gets short of breath on exertion. 12/03. Patient seen and examined. States she feels better compared to yesterday. Shortness of breath is improved, able to maintain conversation without getting short of breath. . Patient seen and examined. Patient pleated course of antibiotics. Pulmonology cleared the patient for discharge. Outpatient follow-up with PCP PHYSICAL EXAMINATION: GENERAL: The patient is alert and oriented x3, not in any acute distress. Well developed, well nourished. HEENT: Pupils are round and equally reacting to light. EOMI. No scleral icterus. No conjunctival pallor. Normocephalic, atraumatic. No pharyngeal erythema. No thyromegaly. CARDIOVASCULAR: S1 and S2 present. No murmurs, rubs, or gallops. PULMONARY: Chest is clear to auscultation, no wheezing or crackles. ABDOMEN: Soft, nontender, nondistended, normoactive bowel sounds. No palpable organomegaly. MUSCULOSKELETAL: No joint swelling or deformity. EXTREMITIES: No cyanosis, clubbing, or pedal edema. NEUROLOGICAL: Gross neurological examination did not reveal any focal deficits. SKIN: No rashes. Dictation was produced using [employer] dictation software. please excuse any grammatical, word or spelling errors. Patient Condition at Discharge: Good Plan - Discharge Summary Discharge Rx Participant: No New Discharge Prescriptions: New predniSONE 10 mg PO DAILY 8 Days #20 tab Continue Furosemide [Lasix] 20 mg PO BID ALPRAZolam [Xanax] 0.25 mg PO DAILY PRN PRN Reason: Anxiety Aspirin 81 mg PO DAILY Budesonide/Formoterol Fumarate [Budesonide-Formoterol 160-4.5] 2 puff PO RT- BID Isosorbide Mononitrate ER [Imdur] 30 mg PO DAILY Albuterol Nebulized [Ventolin Nebulized] 2.5 mg INHALATION RT-QID carvediloL [Coreg] 6.25 mg PO DAILY Atorvastatin [Lipitor] 80 mg PO HS lisinopriL [Zestril] 5 mg PO DAILY Discharge Medication List Furosemide [Lasix] 20 mg PO BID 10/30/18 [History] ALPRAZolam [Xanax] 0.25 mg PO DAILY PRN 11/20/18 [History] Aspirin 81 mg PO DAILY 12/22/18 [History] Budesonide/Formoterol Fumarate [Budesonide-Formoterol 160-4.5] 2 puff PO RT-BID 08/28/23 [History] lisinopriL [Zestril] 5 mg PO DAILY 11/19/23 [History] Albuterol Nebulized [Ventolin Nebulized] 2.5 mg INHALATION RT-QID 11/29/23 [History] Atorvastatin [Lipitor] 80 mg PO HS 11/29/23 [History] Isosorbide Mononitrate ER [Imdur] 30 mg PO DAILY 11/29/23 [History] carvediloL [Coreg] 6.25 mg PO DAILY 11/29/23 [History] predniSONE 10 mg PO DAILY 8 Days #20 tab 12/05/23 [Rx] Follow up Appointment(s)/Referral(s): Toby Lantigua MD [Primary Care Provider] - 12/13/23 1:10 pm [facility] [NON-STAFF] - 1 Week Alessio Perez MD [STAFF PHYSICIAN] - 12/12/23 10:00 am Discharge Disposition: HOME SELF-CARE
--- NOTE | 2023-12-05 14:51 | P.PN ---
Subjective Progress Note Date: 12/05/23 This is a 78-year-old female patient with known history of coronary artery disease, COPD, previous history of bypass surgery and mitral valve repair was coming into the hospital because of worsening shortness of breath. The patient is known to me from previous evaluation and hospital visits. Her other c omorbidities include hypertension, hyperlipidemia, peripheral vascular disease and previous history of breast cancer requiring mastectomy followed by radiation therapy and chemotherapy back in 1998. She also has scoliosis and history of psoriasis. Noted the patient was in the hospital back in August 2023 for symptoms of claudication and the patient underwent an aortogram with bilateral lower extremity runoffs through the left common femoral artery access and the patient was found to have bilateral superficial femoral artery occlusion with reconstitution above the knee popliteal. The patient was being considered for vascular intervention and based on cardiac history the patient was referred to cardiology and a cardiac catheterization was done on 11/22/2023 and the patient was found to have moderate disease in the distant left main, chronically with an RCA, moderate disease involving the distal codominant circumflex, patent LIU to LAD and patent SVG to OM1 OM with 2 and chronically occluded SVG to RCA. In terms of her COPD, the patient has a baseline FEV1 of around 63% of predicted. This is based on her normal pulmonary function test was done in 2018. She is not smoking. However she is not using any respiratory medication on a regular basis or maintenance. She does have Symbicort at home and I do question her compliance with her Symbicort. She has albuterol nebulizer that she uses on an as-needed basis. She is having issues with cough and congestion and wheezing. Her COPD exacerbated. Her blood work shows a white cell count of 11.7 with a hemoglobin 11.3 and a platelet count of 173. BUN 37 with a creatinine of 1.5 and sodium levels at 133 and a potassium level is 4.4. proBNP level was 4240. The viral screen was negative. The lactic acid level was at 1.7 dropped down to 1.2. The chest x-ray that was done in the emergency department showed COPD without any acute cardiopulmonary abnormalities. There was some cardiomegaly with possibly a component of mild pulm vessel congestion. The patient is currently on Lasix 20 mg p.o. twice a day which is her usual outpatient medication dose. She is also on oxygen and she is currently placed on O2 at 6 to 8 L to maintain saturation above 90%. On today's evaluation of 11/30/2023, the patient is feeling less short of breath compared to yesterday. She remains on oxygen 60s per minute nasal cannula. Still bronchospastic and wheezy although less compared to yesterday. Remains on DuoNeb updrafts. Remains on Symbicort and IV Solu-Medrol 40 mg every 8 hours. The patient is also on Zosyn and vancomycin. On her blood work, there is improvement in renal function creatinine is down to 1.33 with a BUN of 34. Sodium levels at 137. White cell count is 9.2 with a hemoglobin of 10.9. Echocardiogram was ordered and the results are still pending for now. No other significant events overnight. She is communicating. Alert and awake. No chest pain. 12/01/2023, patient is clinically stable and less short of breath compared to yesterday. She has been weaned down to 3 L of oxygen by nasal cannula. This will be spastic and wheezy. He remains on same medication. BUN is 41 with a creatinine 1.59 and had renal function remains relatively stable. Sodium level is 138 with a potassium level of 3.7 and a serum bicarb is at 19. She was started on IV Lasix yesterday 40 mg every 12 hours. Fluid balance has been -1.2 L over the past 24 hours. The white cell count is at 9.2 with a hemoglobin of 10.9. No new complaints otherwise for now. Remains on Symbicort and DuoNeb updrafts. Remains on IV Solu-Medrol 40 mg. Hours. Remains on Zosyn and vancomycin. The blood cultures have been negative. He patient has no complaints. She reports that she is improving. On 12/02/2023, patient is being seen for a follow-up. Patient is doing well. She is on 2 L of oxygen by nasal cannula. Room air pulse ox dropped down to 82%. She is spinous to diuretics and the patient is currently on IV Lasix and she is in negative fluid balance. She is producing excellent Urine output. BUN is 46 with a creatinine 1.59 and sodium levels at 142. No other complaint. She remains on Zosyn. She remains on IV Solu-Medrol. She remains on DuoNeb updrafts and Symbicort. The patient is seen today December 03, 2023 in follow-up on the selective care unit. She is currently sitting up in bed. Awake and alert in no acute distress. Denies any worsening shortness of breath, cough or congestion. She is maintaining good O2 saturations in the 90s on 2 L/min per nasal cannula. She is afebrile. Hemodynamically stable. Blood cultures revealed no growth. Creatinine 1.41. GFR 36. Glucose 122. She is continued on DuoNeb ventilations, Symbicort, Zosyn. Remains on IV diuretics. Heparin for DVT prophylaxis. She is currently in a -2.5 L balance. Patient is seen today December 04, 2023 in follow-up on the regular medical floor. She is currently sitting up in bed. Awake and alert in no acute distress. She is feeling nearly back to her baseline. Chest x-ray continues to show some fluid volume overload. She remains on Lasix 40 mg every 12 hours. She remains on Zosyn. Blood cultures revealed no growth. Blood glucose 120. Remains on bronchodilators. Heparin for DVT prophylaxis. The patient is seen today December 05, 2023 in follow-up on the regular medical floor. She is awake and alert in no acute distress. Maintaining good O2 saturations in the 90s on 3 L/min per nasal cannula. Blood cultures revealed no growth. White count 10.2. Hemoglobin 10.6. Platelets 197. Sodium 138. Potassium 3.1. Bicarb 25. BUN 49. Creatinine 1.18. Glucose 81. She is continued on Symbicort, DuoNeb inhalations, prednisone taper. Remains on Zosyn. Heparin for DVT prophylaxis. Objective - Vital Signs Vital signs: Vital Signs Temp 97.8 F 12/05/23 13:03 Pulse 91 12/05/23 13:03 Resp 18 12/05/23 13:03 BP 126/67 12/05/23 13:03 Pulse Ox 93 L 12/05/23 13:03 FiO2 Intake & Output 12/04/23 12/05/23 12/05/23 18:59 06:59 18:59 Intake Total 1320 590 Balance 1320 590 Weight 74.6 kg Intake: Oral 1320 590 Other: Voiding Method Bedside Commode Bedside Commode Bedside Commode # Voids 2 3 2 # Bowel Movements 1 - Exam GENERAL EXAM: Alert, pleasant 78-year-old female, in no apparent distress. On 3 L of oxygen nasal cannula. HEAD: Normocephalic. Atraumatic. EYES: Normal reaction of pupils, equal size. NOSE: Clear with pink turbinates. THROAT: No erythema or exudates. NECK: No masses, no JVD. CHEST: No chest wall deformity. LUNGS: Equal air entry with crackles in the posterior bases. Diminished breath sounds bilaterally. CVS: S1 and S2 normal with no audible murmur, regular rhythm. ABDOMEN: No hepatosplenomegaly, normal bowel sounds, no guarding or rigidity. SPINE: No scoliosis or deformity SKIN: No rashes CENTRAL NERVOUS SYSTEM: No focal deficits, tone is normal in all 4 extremities. EXTREMITIES: There is no peripheral edema. No clubbing, no cyanosis. Peripheral pulses are diminished in the lower extremities bilaterally. - Labs CBC & Chem 7: 12/05/23 07:51 12/05/23 07:51 Labs: Abnormal Lab Results - Last 24 Hours (Table) 12/04/23 12/04/23 12/05/23 Range/Units 17:03 20:09 07:51 RBC 2.86 L (3.80-5.40) m/uL Hgb 10.6 L (11.4-16.0) gm/dL Hct 30.5 L (34.0-46.0) % MCV 106.9 H (80.0-100.0) fL MCH 37.0 H (25.0-35.0) pg Neutrophils # 8.3 H (1.3-7.7) k/uL Potassium (3.5-5.1) mmol/L BUN (7-17) mg/dL Creatinine (0.52-1.04) mg/dL POC Glucose (mg/dL) 147 H 272 H (70-110) mg/dL Calcium (8.4-10.2) mg/dL ALT (4-34) U/L Total Protein (6.3-8.2) g/dL Albumin (3.5-5.0) g/dL 12/05/23 12/05/23 Range/Units 07:51 12:07 RBC (3.80-5.40) m/uL Hgb (11.4-16.0) gm/dL Hct (34.0-46.0) % MCV (80.0-100.0) fL MCH (25.0-35.0) pg Neutrophils # (1.3-7.7) k/uL Potassium 3.1 L (3.5-5.1) mmol/L BUN 49 H (7-17) mg/dL Creatinine 1.18 H (0.52-1.04) mg/dL POC Glucose (mg/dL) 117 H (70-110) mg/dL Calcium 7.1 L (8.4-10.2) mg/dL ALT 78 H (4-34) U/L Total Protein 5.5 L (6.3-8.2) g/dL Albumin 3.0 L (3.5-5.0) g/dL Microbiology - Last 24 Hours (Table) 11/29/23 09:30 Blood Culture - Final Blood 11/29/23 09:30 Blood Culture - Final Blood Assessment and Plan Assessment: Acute exacerbation of COPD with secondary bronchospasm wheezing and shortness of breath. Chest x-ray is consistent with cardiomegaly and mild pulmonary vascular congestion. proBNP level is slightly elevated and the underlying component of CHF cannot be completely excluded. Clinically improving and the patient feels less short of breath the patient remains on IV Lasix. Acute hypoxic respiratory failure and the patient is currently on O2 at 2 L of oxygen nasal cannula Acute kidney injury, creatinine is stable at 1.18 Known history of coronary artery disease with previous history of mild mitral valve regurgitation the patient has undergone 5 vessel bypass surgery and mitral valve annuloplasty. Surgery was done back in 2019. Most recent cardiac catheterization shows patent LIU to LAD and patent SVG to OM1 OM 2 and chronically occluded SVG to RCA. Severe peripheral vascular disease with ongoing issues with claudications Moderate to severe COPD with a baseline FEV1 of 63% of predicted based on the previous spirometry that was done 2019 Carotid artery disease History of breast cancer with previous right mastectomy followed by radiation therapy back in 1998 Scoliosis History of gangrenous toe, post amputation History of psoriasis Hyperlipidemia Plan: The patient was seen and evaluated Labs and medications reviewed Cleared for discharge from the pulmonary standpoint May require home oxygen Continue Symbicort, albuterol HFA Complete a prednisone taper Follow-up in our office in 1 week I have personally seen and examined the patient, performed the documentation and the assessment and plan as written. Number of minutes spent on the visit: 10.
== END 2023-12-05 14:17 | disposition home or self-care (01) | DRG 193 ==
LOC: EC 08:55 → 3SCARD 12:34 → 5NMEDONC 12-03 20:31
PROVIDERS: ADMIT Internal Medicine; ATTEND Internal Medicine
DX: J15.9 Unspecified bacterial pneumonia (principal); I50.23 Acute on chronic systolic (congestive) heart failure; J96.01 Acute respiratory failure with hypoxia; N17.9 Acute kidney failure, unspecified; J44.0 Chronic obstructive pulmonary disease with (acute) lower respiratory infection; I25.810 Atherosclerosis of coronary artery bypass graft(s) without angina pectoris; J44.1 Chronic obstructive pulmonary disease with (acute) exacerbation; I11.0 Hypertensive heart disease with heart failure; R79.89 Other specified abnormal findings of blood chemistry; I70.203 Unspecified atherosclerosis of native arteries of extremities, bilateral legs; E78.5 Hyperlipidemia, unspecified; I65.29 Occlusion and stenosis of unspecified carotid artery; M41.9 Scoliosis, unspecified; L40.9 Psoriasis, unspecified; F41.9 Anxiety disorder, unspecified; I25.2 Old myocardial infarction; Z86.718 Personal history of other venous thrombosis and embolism; Z79.899 Other long term (current) drug therapy; Z86.010 Personal history of colon polyps; Z79.82 Long term (current) use of aspirin; Z82.49 Family history of ischemic heart disease and other diseases of the circulatory system; Z85.3 Personal history of malignant neoplasm of breast; Z87.19 Personal history of other diseases of the digestive system; Z90.11 Acquired absence of right breast and nipple; Z95.2 Presence of prosthetic heart valve; Z88.5 Allergy status to narcotic agent; Z92.3 Personal history of irradiation; Z92.21 Personal history of antineoplastic chemotherapy
CPT/HCPCS: 36415; 71045; 80048; 80053; 80202; 81001; 82565; 83036; 83605; 83735; 83880; 84132; 85025; 85610; 85730; 87040; 87636; 93005; 94640; 94644; 94760; 96365; 96366; 96367; 96375; 96376; 99291

== ENCOUNTER → 2024-04-03 | Outpatient (CLI) | payer MEDICARE ==
--- NOTE | 2024-04-05 11:40 | US ---
EXAMINATION TYPE: US kidneys/renal and bladder DATE OF EXAM: 04/03/2024 COMPARISON: US 2018 CLINICAL INDICATION: Female, 79 years old with history of N18.32 CHRONIC KIDNEY DISEASE, STAGE 3B; EXAM MEASUREMENTS: Right Kidney: 8.2 x 4.7 x 4.6 cm Left Kidney: 8.4 x 4.5 x 4.5 cm Right Kidney: small in size, no hydronephrosis or masses seen Left Kidney: small in size, no hydronephrosis or masses seen Bladder: wnl Bilateral Jets seen: Yes Normal Post Void Residual: Yes There is no evidence for hydronephrosis at this point in time. No nephrolithiasis is seen. No leticia s are identified. The urinary bladder is anechoic. Bilateral ureteral jets are seen. IMPRESSION: Diminutive kidneys otherwise unremarkable study [facility], , 04/05/2024 11:38 AM
== END | disposition home or self-care (01) ==
LOC: RADUSWWP 14:27
PROVIDERS: ATTEND Internal Medicine Nephrology
DX: N18.32 Chronic kidney disease, stage 3b (principal)
CPT/HCPCS: 76770

== ENCOUNTER → 2024-07-13 | Outpatient (CLI) | payer MEDICARE ==
--- NOTE | 2024-07-13 13:44 | CT ---
EXAMINATION TYPE: CT chest wo con DATE OF EXAM: 07/13/2024 COMPARISON: Chest CT October 25, 2017 HISTORY: COPD CT DLP: 374.3 mGycm. Automated Exposure Control for Dose Reduction was Utilized. TECHNIQUE: CT scan of the thorax is performed without IV contrast. FINDINGS: LUNGS: Moderate biapical and upper lung parenchymal scarring is redemonstrated. There is additional s cattered mild to moderate linear scarring and atelectasis along with [id number] peripheral reti culation or fibrosis seen bilaterally. There is more prominent moderate to severe left basilar fibros is. There is mild to moderate underlying emphysematous change in the upper lungs. No significant pleu ral effusion or pneumothorax seen currently. MEDIASTINUM: Lack of IV contrast is noted to limit evaluation for mediastinal and especially hilar ad enopathy. Post-CABG changes with sternal wires and mediastinal clips is now present. New surgical wilson nge at level of the mitral valve. No cardiomegaly or pericardial effusion. OTHER: Right breast is surgically absent similar to prior. Slight scoliotic curvature is seen. IMPRESSION: Mild to moderate underlying emphysematous change with bilateral parenchymal fibrosis that has progressed from 2018 study as detailed above. [facility], , 07/13/2024 1:41 PM
== END | disposition home or self-care (01) ==
LOC: RADCTMAIN 11:37
PROVIDERS: ATTEND Internal Medicine Critical Care Medicine
DX: J44.9 Chronic obstructive pulmonary disease, unspecified (principal); J43.9 Emphysema, unspecified; J84.10 Pulmonary fibrosis, unspecified
CPT/HCPCS: 71250

== ENCOUNTER 2024-12-15 11:23 | Inpatient (IN) | payer MEDICARE ==
[2024-12-15 12:31] LABS: Basophils # (A) 0.04 10*3/uL (0.00-0.10); Basophils % (A) 0.3 %; Eosinophils # (A) 0.01 10*3/uL (0.04-0.35); Eosinophils % (A) 0.1 %; HCT 46.6 % (37.2-46.3); HGB 14.7 g/dL (12.0-15.0); Lymphocytes # (A) 1.71 10*3/uL (0.90-5.00); Lymphocytes % (A) 10.9 %; MCH 33.6 pg (27.0-32.0); MCHC 31.5 g/dL (32.0-37.0); MCV 106.4 fL (80.0-97.0); Mean Platelet Volume 11.3 fL (9.5-12.2); Monocytes # (A) 1.34 10*3/uL (0.20-1.00); Monocytes % (A) 8.6 %; Neutrophils # (A) 12.52 10*3/uL (1.80-7.70); Neutrophils % (A) 79.8 %; Platelet Count 163 10*3/uL (140-440); RBC 4.38 10*6/uL (4.10-5.20); RDW 15.8 % (11.5-14.5); WBC 15.67 10*3/uL (4.50-10.00)
[2024-12-15 12:44] LABS: ALT 22 U/L (4-34); AST 22 U/L (14-36); African American GFR (CKD) 47 (>60 ml/min/1.73 sqM); Albumin 4.1 g/dL (3.5-5.0); Alkaline Phosphatase 71 U/L (38-126); Anion Gap 8 mmol/L; Blood Urea Nitrogen 31 mg/dL (7-17); Carbon Dioxide 30 mmol/L (22-30); Chloride 100 mmol/L (98-107); Glucose 124 mg/dL (74-99); Magnesium 1.8 mg/dL (1.6-2.3); Non-African American GFR(CKD) 40 (>60 ml/min/1.73 sqM); Sodium 138 mmol/L (137-145); Total Bilirubin 1.7 mg/dL (0.2-1.3); Total Protein 7.2 g/dL (6.3-8.2)
[2024-12-15 12:51] LABS: NT-Pro-B-Type Natriuretic Pept 5730 pg/mL
--- NOTE | 2024-12-15 13:04 | XR ---
EXAMINATION TYPE: XR chest 2V DATE OF EXAM: 12/15/2024 12:57 PM COMPARISON: Chest radiographs from 12/04/2023, CT chest 07/13/2024 TECHNIQUE: XR chest 2V Frontal and lateral views of the chest. CLINICAL INDICATION:Female, 79 years old with history of difficulty breathing; FINDINGS: Lungs/Pleura: There is no evidence of pleural effusion, focal consolidation, or pneumothorax. Chroni c peripheral interstitial prominence consistent with previously seen fibrosis. Right apical pleural t hickening. Pulmonary vascularity: Unremarkable. Heart/mediastinum: Cardiomediastinal silhouette is enlarged and stable. Postvalve repair change. Musculoskeletal: No acute osseous pathology. Midline sternotomy wires are noted and stable. Other findings: Multiple surgical clips within the right maxillary demonstrated. IMPRESSION: Chronic changes without acute pulmonary process. No significant change from prior. [facility], , 12/15/2024 1:01 PM
--- NOTE | 2024-12-15 13:11 | ED ---
General Adult HPI - General Chief complaint: Fall Stated complaint: Fall Time Seen by Provider: 12/15/24 11:25 Source: patient, EMS, RN notes reviewed Mode of arrival: EMS Limitations: physical limitation - History of Present Illness Initial comments: 79-year-old female presents emergency department via EMS chief complaint of weakness. Patient states she had a fall and she was unable to get up upon EMS arrival they helped her out but she was still too weak and was brought to emergency department. Patient found to be acutely hypoxic she states she does have a patient does me that she has been more short of breath. Patient states she has had increasing leg swelling along with right leg redness which is new after anterior lower extremity. Denies fevers or chills. Patient was no other complaints. - Related Data Home Medications Medication Instructions Recorded Confirmed Furosemide [Lasix] 20 mg PO BID 10/30/18 11/29/23 ALPRAZolam [Xanax] 0.25 mg PO DAILY PRN 11/20/18 11/29/23 Aspirin 81 mg PO DAILY 12/22/18 11/29/23 Budesonide/Formoterol Fumarate 2 puff PO RT-BID 08/28/23 11/29/23 [Budesonide-Formoterol 160-4.5] lisinopriL [Zestril] 5 mg PO DAILY 11/19/23 11/29/23 Albuterol Nebulized [Ventolin 2.5 mg INHALATION RT-QID 11/29/23 11/29/23 Nebulized] Atorvastatin [Lipitor] 80 mg PO HS 11/29/23 11/29/23 Isosorbide Mononitrate ER [Imdur] 30 mg PO DAILY 11/29/23 11/29/23 carvediloL [Coreg] 6.25 mg PO DAILY 11/29/23 11/29/23 Previous Rx's Medication Instructions Recorded predniSONE 10 mg PO DAILY 8 Days #20 tab 12/05/23 Allergies Allergy/AdvReac Type Severity Reaction Status Date / Time morphine Allergy Hallucinati Verified 11/29/23 10:05 ons Review of Systems ROS Statement: Those systems with pertinent positive or pertinent negative responses have been documented in the HPI. ROS Other: All systems not noted in ROS Statement are negative. Past Medical History Past Medical History: Coronary Artery Disease (CAD), Cancer, COPD, Diabetes Mellitus, Deep Vein Thrombosis (DVT), Hyperlipidemia, Hypertension, Myocardial Infarction ([place]), Musculoskeletal Disorder, Renal Disease, Skin Disorder, Thyroid Disorder, Vascular Disorder Additional Past Medical History / Comment(s): hesham leg pain with pins and needles, "Borderline Diabetic." Hx DVT's Pastpartum. Hx right breast cancer with mastectomy, radiation and chemotherapy 1998. Scoliosis. Hx Psoriasis. Dry Gangrene right 4th toe-no longer present. Varicose veins. Edema hesham foot/ankle. Hx colon polyps. Last Myocardial Infarction Date:: 10/2017 History of Any Multi-Drug Resistant Organisms: None Reported Past Surgical History: Breast Surgery, Cardiac Valve Replacement, Coronary Bypass/CABG, Heart Catheterization Additional Past Surgical History / Comment(s): Right mastectomy, CABG 5 vessel 07/07/18, Fem. Pop. 12/25/18, colonoscopies with polypectomy. Past Anesthesia/Blood Transfusion Reactions: No Reported Reaction Additional Past Anesthesia/Blood Transfusion Reaction / Comment(s): No problems with prior blood transfusions. Past Psychological History: Anxiety Smoking Status: Former smoker - Past Family History Brother(s) Family Medical History: Cancer, Coronary Artery Disease (CAD) Additional Family Medical History / Comment(s): Skin cancer,cardiac stents Course Vital Signs 12/15/24 12/15/24 11:26 14:24 Temperature 98.5 F Pulse Rate 95 78 Respiratory 18 20 Rate Blood Pressure 141/82 126/79 O2 Sat by Pulse 80 L 94 L Oximetry EKG Findings - EKG Comments: EKG Findings:: EKG performed at 11: 33 sinus rhythm rate of 89 [place] 195 QRS 104 QT/QTc 374/421 - EKG Results: EKG: interpreted by SHIREEN Medical Decision Making - Medical Decision Making Was pt. sent in by a medical professional or institution (, PA, DIRECTOR GIFT, urgent care, hospital, or correction...) When possible be specific @ -No Did you speak to anyone other than the patient for history (EMS, parent, family, police, friend...)? What history was obtained from this source @ -No Did you review nursing and triage notes (agree or disagree)? Why? @ -I reviewed and agree with nursing and triage notes Were old charts reviewed (outside hosp., previous admission, EMS record, old EKG, old radiological studies, urgent care reports/EKG's, correction records)? Report findings @ -No old charts were reviewed Differential Diagnosis (chest pain, altered mental status, abdominal pain women, abdominal pain men, vaginal bleeding, weakness, fever, dyspnea, syncope, headache, dizziness, GI bleed, back pain, seizure, CVA, palpatations, mental health, musculoskeletal)? @ -Differential Weakness: Hypoglycemia, shock, sepsis, hyponatremia, anemia, infection, [place], ETOH, adverse medicine reaction, overdose, stroke, this is not meant to be an all-inclusive list. Differential Dyspnea: Coronary syndrome, arrhythmia, tamponade, asthma, COPD, pulmonary embolism, pneumonia, pneumothorax, pulmonary effusion, anaphylaxis, diabetic ketoacidosis, flailed chest, pulmonary contusion, diaphragmatic rupture, anemia, neuromuscular, this is not meant to be an all-inclusive list. EKG interpreted by me (3pts min.). @ -As above X-rays interpreted by me (1pt min.). @Chest x-ray shows COPD changes CT interpreted by me (1pt min.). @ -None done U/S interpreted by me (1pt. min.). @ -None done What testing was considered but not performed or refused? (CT, X-rays, U/S, labs)? Why? @ -None What meds were considered but not given or refused? Why? @ -None Did you discuss the management of the patient with other professionals (professionals i.e. , PA, DIRECTOR GIFT, lab, RT, psych nurse, social media assistant, tumbler drier operator, teacher, sba business development officer, case management director)? Give summary @ -Dr. Whitmore for admission Was smoking cessation discussed for >3mins.? @ -No Was critical care preformed (if so, how long)? @ -35 min Were there social determinants of health that impacted care today? How? (Homelessness, low income, unemployed, alcoholism, drug addiction, transportation, low edu. Level, literacy, decrease access to med. care, shelter, rehab)? @ -No Was there de-escalation of care discussed even if they declined (Discuss DNR or withdrawal of care, Hospice)? DNR status @ -No What co-morbidities impacted this encounter? (DM, HTN, Smoking, COPD, CAD, Cancer, CVA, ARF, Chemo, Hep., AIDS, mental health diagnosis, sleep apnea, morbid obesity)? @ -COPD Was patient admitted / discharged? Hospital course, mention meds given and route, prescriptions, significant lab abnormalities, going to OR and other pertinent info. @ -Admitted patient presented for increasing weakness, patient found to be hypoxic. Patient does have mild COPD changes on x-ray. Patient was started on antibiotic therapy given patient's right lower extremity cellulitis. Patient admitted for pulmonary evaluation and possible placement. Undiagnosed new problem with uncertain prognosis? @ -No Drug Therapy requiring intensive monitoring for toxicity (Heparin, Nitro, Insulin, Cardizem)? @ -No Were any procedures done? @ -No Diagnosis/symptom? @ -M hypoxia, COPD, right leg cellulitis Acute, or Chronic, or Acute on Chronic? @ -Acute Uncomplicated (without systemic symptoms) or Complicated (systemic symptoms)? @ -Complicated Side effects of treatment? @ -No Exacerbation, Progression, or Severe Exacerbation? @ -COPD exacerbation Poses a threat to life or bodily function? How? (Chest pain, [place], [place], pneumonia, PE, COPD, DKA, ARF, appy, cholecystitis, CVA, Diverticulitis, Homicidal, Suicidal, threat to staff... and all critical care pts) @ -Yes COPD, respiratory respiratory function Diagnosis/symptom? @ -Acute hypoxic respiratory failure Acute, or Chronic, or Acute on Chronic? @ -Acute Uncomplicated (without systemic symptoms) or Complicated (systemic symptoms)? @ -Complicated Side effects of treatment? @ -[none] Exacerbation, Progression, or Severe Exacerbation] @ -[no] Poses a threat to life or bodily function? @ -Yes threat to Pulmonary function - Lab Data Result diagrams: 12/15/24 12:14 12/15/24 12:14 Lab Results 12/15/24 12/15/24 12/15/24 Range/Units 12:14 12:14 12:14 WBC 15.67 H (4.50-10.00) 10*3/uL RBC 4.38 (4.10-5.20) 10*6/uL Hgb 14.7 (12.0-15.0) g/dL Hct 46.6 H (37.2-46.3) % MCV 106.4 H (80.0-97.0) fL MCH 33.6 H (27.0-32.0) pg MCHC 31.5 L (32.0-37.0) g/dL Plt Count 163 (140-440) 10*3/uL MPV 11.3 (9.5-12.2) fL Immature Gran % (Auto) 0.3 % Neutrophils % 79.8 % Lymphocytes % 10.9 % Monocytes % 8.6 % Eosinophils % 0.1 % Basophils % 0.3 % Immature Gran # 0.05 H (0.00-0.04) 10*3/uL Neutrophils # 12.52 H (1.80-7.70) 10*3/uL Lymphocytes # 1.71 (0.90-5.00) 10*3/uL Monocytes # 1.34 H (0.20-1.00) 10*3/uL Eosinophils # 0.01 L (0.04-0.35) 10*3/uL Basophils # 0.04 (0.00-0.10) 10*3/uL Manual Slide Review Performed PT 12.0 (10.0-12.5) sec INR 1.1 (<1.2) APTT 22.6 (22.0-30.0) sec Sodium 138 (137-145) mmol/L Potassium 4.0 (3.5-5.1) mmol/L Chloride 100 (98-107) mmol/L Carbon Dioxide 30 (22-30) mmol/L Anion Gap 8 mmol/L BUN 31 H (7-17) mg/dL Creatinine 1.28 H (0.52-1.04) mg/dL Est GFR (CKD-EPI)AfAm 47 (>60 ml/min/1.73 sqM) Est GFR (CKD-EPI)NonAf 40 (>60 ml/min/1.73 sqM) Glucose 124 H (74-99) mg/dL Plasma Lactic Acid Kaleb (0.7-2.0) mmol/L Calcium 9.0 (8.4-10.2) mg/dL Magnesium 1.8 (1.6-2.3) mg/dL Total Bilirubin 1.7 H (0.2-1.3) mg/dL AST 22 (14-36) U/L ALT 22 (4-34) U/L Alkaline Phosphatase 71 (38-126) U/L Troponin I (0.000-0.034) ng/mL NT-Pro-B Natriuret Pep 5730 pg/mL Total Protein 7.2 (6.3-8.2) g/dL Albumin 4.1 (3.5-5.0) g/dL 12/15/24 12/15/24 Range/Units 12:14 12:14 WBC (4.50-10.00) 10*3/uL RBC (4.10-5.20) 10*6/uL Hgb (12.0-15.0) g/dL Hct (37.2-46.3) % MCV (80.0-97.0) fL MCH (27.0-32.0) pg MCHC (32.0-37.0) g/dL Plt Count (140-440) 10*3/uL MPV (9.5-12.2) fL Immature Gran % (Auto) % Neutrophils % % Lymphocytes % % Monocytes % % Eosinophils % % Basophils % % Immature Gran # (0.00-0.04) 10*3/uL Neutrophils # (1.80-7.70) 10*3/uL Lymphocytes # (0.90-5.00) 10*3/uL Monocytes # (0.20-1.00) 10*3/uL Eosinophils # (0.04-0.35) 10*3/uL Basophils # (0.00-0.10) 10*3/uL Manual Slide Review PT (10.0-12.5) sec INR (<1.2) APTT (22.0-30.0) sec Sodium (137-145) mmol/L Potassium (3.5-5.1) mmol/L Chloride (98-107) mmol/L Carbon Dioxide (22-30) mmol/L Anion Gap mmol/L BUN (7-17) mg/dL Creatinine (0.52-1.04) mg/dL Est GFR (CKD-EPI)AfAm (>60 ml/min/1.73 sqM) Est GFR (CKD-EPI)NonAf (>60 ml/min/1.73 sqM) Glucose (74-99) mg/dL Plasma Lactic Acid Kaleb 1.2 (0.7-2.0) mmol/L Calcium (8.4-10.2) mg/dL Magnesium (1.6-2.3) mg/dL Total Bilirubin (0.2-1.3) mg/dL AST (14-36) U/L ALT (4-34) U/L Alkaline Phosphatase (38-126) U/L Troponin I 0.012 (0.000-0.034) ng/mL NT-Pro-B Natriuret Pep pg/mL Total Protein (6.3-8.2) g/dL Albumin (3.5-5.0) g/dL Critical Care Time Critical Care Time: Yes Total Critical Care Time: 35 Disposition Clinical Impression: Fall, COPD (chronic obstructive pulmonary disease), Cellulitis of right leg, Weakness, Acute hypoxic respiratory failure Disposition: ADMITTED IP TO THIS HOSP Condition: Fair Referrals: Toby Lantigua MD [Primary Care Provider] - 1-2 days Time of Disposition: 14:38
[2024-12-15 13:16] LABS: INR 1.1 (<1.2); Partial Thromboplastin Time 22.6 sec (22.0-30.0)
[2024-12-15] MEDS ORDERED: NALOXONE 0.4 MG/ML 1 ML VIAL IV PRN (14:39)
[2024-12-15] MEDS ORDERED: ONDANSETRON 4 MG/2 ML VIAL IVP PRN (14:39)
[2024-12-15] MEDS ORDERED: ACETAMINOPHEN TAB 325 MG TAB PO PRN (14:39)
[2024-12-15] MEDS: FUROSEMIDE 10 MG/ML 4 ML VIAL IV SCH (15:26)
[2024-12-15] MEDS: AMPICILLIN-SULBACTAM 3 GM in SODIUM CHLORIDE 0.9% 100 ML IVPB STA (15:27)
[2024-12-15 16:30] LABS: Appearance,Urine Clear (Clear); Bilirubin,Urine Negative (Negative); Blood,Urine Negative (Negative); Color,Urine Colorless; Glucose,Urine (UA) Negative (Negative); Ketones,Urine Negative (Negative); Leukocyte Esterase,Urine Negative (Negative); Nitrite,Urine Negative (Negative); Protein,Urine Negative (Negative); Specific Gravity,Urine 1.008 (1.001-1.035); Urobilinogen,Urine <2.0 mg/dL (<2.0)
--- NOTE | 2024-12-15 16:48 | HP ---
HISTORY AND PHYSICAL CHIEF COMPLAINT: Fall. HISTORY OF PRESENT ILLNESS: This 79-year-old woman with a past medical history of multiple medical problems including COPD, CAD. She had a fall, appears to be mechanical. The patient also complained of generalized weakness. The patient was unable to get up. The patient also had bilateral foot hematoma as well as cellulitis on the right leg. The patient apparently scheduled for surgery by Dr. García for peripheral vascular disease. The patient was also short of breath and the patient is also found to be hypoxic and the white count is elevated. The chest x-ray done in the ER showed evidences of some CHF and the patient admitted for further evaluation and treatment. There is no history of fever, rigors, or chills at this time. PAST MEDICAL HISTORY: CAD, COPD, and DVT. Rest of the history and rest of the chart is also reviewed. HOME MEDICATIONS: Reviewed, include prednisone. Dose and rest of medications reviewed. ALLERGIES: Morphine. FAMILY HISTORY: History of CAD and stents in the family. SOCIAL HISTORY: Previous history of smoking. REVIEW OF SYSTEMS: A 14-point review of systems negative except as mentioned earlier. PHYSICAL EXAMINATION: VITAL SIGNS: Pulse 95, blood pressure 141/82, and respirations 18. HEENT: Conjunctivae normal. NECK: No jugular venous distention. CARDIOVASCULAR: S1, S2. RESPIRATIONS: Breath sounds diminished at the bases. Few scattered rhonchi and crackles. ABDOMEN: Soft, nontender. LEGS: Bilateral leg edema. Right leg cellulitis. Both bilateral foot hematomas. NERVOUS SYSTEM: No focal deficits. Mild diffuse weakness. SKIN: As mentioned earlier. LABORATORY DATA: WBC 15.2. Rest of the labs are noted. Chest x-ray was reviewed. ASSESSMENT: 1. Fall and weakness with gait dysfunction. 2. Acute right leg cellulitis. 3. Bilateral foot hematomas. 4. Shortness of breath, possibly congestive heart failure acute exacerbation and chronic obstructive pulmonary disease acute exacerbation. 5. Elevated WBC. 6. History of coronary artery disease. 7. Diabetes mellitus, type 2. 8. History of deep venous thrombosis. 9. Hypertension. 10.Hyperlipidemia. 11.Multiple complex medical issues. RECOMMENDATIONS AND DISCUSSION: This 79-year-old woman presented with multiple complex medical issues. At this time, I recommend to continue current management and continue symptomatic treatment. I would recommend broad-spectrum IV antibiotics. I would also recommend D-dimer and further workup including CT angio of the chest and ultrasound of the legs also. Otherwise diuretics, Cardiology consultation, and Infectious Disease evaluation. Guarded prognosis, because of multiple complex medical issues. Further recommendations to follow. IV Unasyn is recommended. See orders for further details. MMODL / IJN: [id number] /
[2024-12-15] MEDS: IPRATROPIUM-ALBUTEROL 3 ML NEB INHALATION SCH ×2 (16:58→20:50)
[2024-12-15] MEDS: methylPREDNISolone SOD SUCCI 125 MG/2 ML VIAL IV STA (17:16)
[2024-12-15] MEDS: AMPICILLIN-SULBACTAM 3 GM in SODIUM CHLORIDE 0.9% 100 ML IVPB SCH (21:57)
[2024-12-15 23:08] LABS: Influenza A Not Detected (Not Detectd); Influenza B Not Detected (Not Detectd); RSV Not Detected (Not Detectd)
--- NOTE | 2024-12-16 02:50 | P.CNPUL ---
History of Present Illness Consult date: 12/16/24 Requesting physician: Jose Alaniz Reason for consult: COPD Chief complaint: Weakness, lower extremity swelling, shortness of breath History of present illness: Patient is a 79-year-old female with past medical history significant for COPD/asthma, coronary artery disease with previous CABG and mitral valve repair, hypertension, hyperlipidemia, peripheral vascular disease, breast cancer with previous mastectomy and radiation. Patient does follow in the pulmonary office with Dr. Perez. Has an FEV1 in the order of 63% of predicted. Maintained on Trelegy inhaler as well as albuterol nebs. Of note, patient did had a recent hospitalization Nov, 2024 for COPD exacerbation and CHF exacerbation. Patient brought into the emergency room today by EMS with a chief complaint of generalized weakness. She has been very sleepy. Associated increased lower extremity swelling. Also, more short of breath than her baseline. Workup in the emergency department including a chest x-ray remarkable for chronic peripheral interstitial prominence. No obvious new pleural effusions, focal consolidations or pneumothoraces. NT-proBNP elevated at 5730. CBC remarkable for leukocytosis with WBC count of 15.7, hemoglobin 14.7, platelets 163. D-dimer 0.57. CMP with a sodium 138, potassium 4, chloride 100, serum bicarb 30, BUN 31, creatinine 1.28, glucose 124. Troponin 0.012. NT proBNP 5730. Urinalysis unremarkable for infection. Serum alcohol level less than 10. Viral 4 Plex for influenza A /B, RSV, COVID negative. Patient currently being evaluated emergency department. She is resting comfortably on 4 L/min nasal cannula. Starting Saturday developed increased bilateral lower extremity swelling and redness of her lower leg. No open wounds. No significant pain or warmth. No fevers or chills. Does reportedly take Lasix on outpatient basis. Denies any chest pain, heart palpitations, syncopal events. Did sleep in a recliner yesterday due to increased work of breathing. Denies any infectious-like symptoms. Denies sick contacts. Denies any increased cough, fevers or chills, wheezing, chest tightness. Given DuoNeb treatments and loaded with IV Solu-Medrol in the ED. Also, started on IV Lasix 40 mg twice a day. Empirically covered on Unasyn. Afebrile. Current vital signs are stable. Review of Systems Constitutional: Reports daytime sleepiness, Reports fatigue, Denies chills, Denies fever, Denies night sweats Ears, nose, mouth and throat: Denies headache, Denies nasal congestion, Denies nasal discharge, Denies post-nasal drip, Denies sinus pain, Denies sinus pressure, Denies sore throat Cardiovascular: Reports leg edema, Reports orthopnea, Reports shortness of breath, Denies chest pain, Denies lightheadedness, Denies palpitations, Denies paroxysmal nocturnal dyspnea, Denies syncope Respiratory: Reports as per HPI Gastrointestinal: Denies abdominal pain, Denies change in bowel habits, Denies diarrhea, Denies nausea, Denies vomiting Genitourinary: Denies dysuria, Denies flank pain, Denies hematuria Musculoskeletal: Denies limitation of motion Integumentary: Denies foot/leg ulcers Neurological: Denies seizures, Denies syncope Psychiatric: Reports anxiety, Denies depression Past Medical History Past Medical History: Coronary Artery Disease (CAD), Cancer, COPD, Diabetes Mellitus, Deep Vein Thrombosis (DVT), Hyperlipidemia, Hypertension, Myocardial I nfarction (VA), Musculoskeletal Disorder, Renal Disease, Skin Disorder, Thyroid Disorder, Vascular Disorder Additional Past Medical History / Comment(s): hesham leg pain with pins and needles, "Borderline Diabetic." Hx DVT's Pastpartum. Hx right breast cancer with mastectomy, radiation and chemotherapy 1998. Scoliosis. Hx Psoriasis. Dry Gangrene right 4th toe-no longer present. Varicose veins. Edema hesham foot/ankle. Hx colon polyps. Last Myocardial Infarction Date:: 10/2017 History of Any Multi-Drug Resistant Organisms: None Reported Past Surgical History: Breast Surgery, Cardiac Valve Replacement, Coronary Bypass/CABG, Heart Catheterization Additional Past Surgical History / Comment(s): Right mastectomy, CABG 5 vessel 07/07/18, Fem. Pop. 12/25/18, colonoscopies with polypectomy. Past Anesthesia/Blood Transfusion Reactions: No Reported Reaction Additional Past Anesthesia/Blood Transfusion Reaction / Comment(s): No problems with prior blood transfusions. Past Psychological History: Anxiety Additional Psychological History / Comment(s): ANXIOUS REGARDING SURGERY. Smoking Status: Former smoker Past Alcohol Use History: None Reported Additional Past Alcohol Use History / Comment(s): Quit smoking in 2017, smoked for 40 yrs, <1PPD. Past Drug Use History: None Reported - Past Family History Brother(s) Family Medical History: Cancer, Coronary Artery Disease (CAD) Additional Family Medical History / Comment(s): Skin cancer,cardiac stents Medications and Allergies Home Medications Medication Instructions Recorded Confirmed Type Furosemide [Lasix] 20 mg PO DAILY 10/30/18 12/15/24 History ALPRAZolam [Xanax] 0.25 mg PO HS PRN 11/20/18 12/15/24 History lisinopriL [Zestril] 5 mg PO DAILY 11/19/23 12/15/24 History Albuterol Nebulized [Ventolin 2.5 mg INHALATION RT-BID 11/29/23 12/15/24 History Nebulized] Atorvastatin [Lipitor] 80 mg PO HS 11/29/23 12/15/24 History carvediloL [Coreg] 6.25 mg PO DAILY 11/29/23 12/15/24 History Albuterol Sulfate [Ventolin HFA] 2 puff INHALATION RT-Q6H PRN 12/15/24 12/15/24 History Aspirin EC [Ecotrin Low Dose] 81 mg PO DAILY 12/15/24 12/15/24 History Ezetimibe [Zetia] 10 mg PO DAILY 12/15/24 12/15/24 History Fluticasone Propion/Salmeterol 1 puff INHALATION RT-BID 12/15/24 12/15/24 History [Fluticasone-Salmeterol 500-50] Allergies Allergy/AdvReac Type Severity Reaction Status Date / Time morphine Allergy Hallucinations/"could Verified 12/15/24 18:04 not move" Physical Exam Vitals: Vital Signs Temp Pulse Resp BP Pulse Ox 12/15/24 23:54 98.1 F 74 21 121/63 91 L 12/15/24 23:08 77 20 132/65 90 L 12/15/24 21:04 74 12/15/24 20:57 74 20 132/65 95 12/15/24 20:53 77 12/15/24 19:37 76 20 122/62 91 L 12/15/24 17:20 76 20 104/80 92 L 12/15/24 17:06 88 18 12/15/24 16:58 89 18 12/15/24 15:31 77 22 126/107 93 L 12/15/24 14:24 78 20 126/79 94 L 12/15/24 11:26 98.5 F 95 18 141/82 80 L Intake and Output 12/15/24 12/15/24 12/16/24 14:59 22:59 06:59 Other: Weight 74.843 kg 74.843 kg GENERAL EXAM: Alert, 79-year-old female, on 4 L/min nasal cannula, fairly comfortable in no apparent distress. HEAD: Normocephalic and atraumatic EYES: Normal reaction of pupils, equal size. NOSE: Clear with pink turbinates. THROAT: No erythema or exudates. NECK: No masses, no JVD. CHEST: No chest wall deformity. LUNGS: Equal air entry with bibasilar inspiratory crackles. No wheezing, rhonchi, focal dullness. On 4 L/min nasal cannula. No conversational dyspnea or accessory muscle use.. CVS: S1 and S2 normal with no audible murmur, regular rhythm. No extra heart sounds ABDOMEN: No hepatosplenomegaly, active bowel sounds, no guarding or rigidity. SPINE: No scoliosis or deformity SKIN: No rashes CENTRAL NERVOUS SYSTEM: No focal deficits, tone is normal in all 4 extremities. EXTREMITIES: There is bilateral lower extremity 2-3+ pitting edema. Right lower extremity erythema without warmth or open wounds. Peripheral pulses are weak but palpable. No clubbing or cyanosis. Results - Laboratory Findings CBC and BMP: 12/15/24 12:14 12/15/24 12:14 PT/INR, D-dimer PT 12.0 sec (10.0-12.5) 12/15/24 12:14 INR 1.1 (<1.2) 12/15/24 12:14 D-Dimer 0.57 mg/L FEU (<0.60) 12/15/24 12:14 Abnormal lab findings: Abnormal Labs 12/15/24 12/15/24 12:14 12:14 WBC 15.67 H Hct 46.6 H MCV 106.4 H MCH 33.6 H MCHC 31.5 L Immature Gran # 0.05 H Neutrophils # 12.52 H Monocytes # 1.34 H Eosinophils # 0.01 L BUN 31 H Creatinine 1.28 H Glucose 124 H Total Bilirubin 1.7 H - Diagnostic Findings Chest x-ray: image reviewed Assessment and Plan Assessment: Acute hypoxemic respiratory failure, possibly secondary to a combination of factors including exacerbation of diastolic congestive heart failure and COPD/asthma exacerbation patient is currently on 4 L/min nasal cannula; chest x- ray remarkable for chronic peripheral interstitial prominenc and chronic fibrotic changes. No obvious new pleural effusions, focal consolidations or pneumothoraces. NT-proBNP elevated at 5730. Viral 4 Plex negative for influenza A/B, RSV, COVID. Acute leukocytosis Bilateral lower extremity edema with possible right lower lower extremity cellulitis History of coronary artery disease with previous history of mild mitral valve regurgitation the patient has undergone 5 vessel bypass surgery and mitral valve annuloplasty. Surgery was done back in 2019. Most recent cardiac ca theterization shows patent LIU to LAD and patent SVG to OM1 OM 2 and chronically occluded SVG to RCA. History of severe peripheral vascular disease with intermittent claudication History of carotid artery stenosis History of hyperlipidemia Chronic kidney disease stage III Moderate to severe COPD with a baseline FEV1 of 63% of predicted, currently maintained on a combination of Trelegy inhaler, albuterol nebs twice daily, and as needed albuterol rescue inhaler History of breast cancer with previous right mastectomy followed by radiation History of psoriasis Plan Patient medications, labs, chest x-ray reviewed Continue to wean supplemental oxygen to maintain action saturation of 90% or greater Continue Lasix 40 mg twice daily No need to repeat echocardiogram, recent available echocardiogram from 08/28/2024 estimating a preserved left ventricular ejection fraction of 50 to 55% and grade 2 diastolic dysfunction with mild LVH. Increased pulmonary artery systolic pressure. Noted mitral valve prosthesis with mild to moderate MR and mild to moderate tricuspid regurgitation Continue DuoNeb nebulized treatments [id number] 4 times a day Add Symbicort inhaler Continue IV Solu-Medrol Currently, covered on IV Unasyn for possible cellulitis We will continue to follow I have personally seen and examined the patient, performed the documentation and the assessment and plan as written. Number of minutes spent on the visit:20 Time with Patient: Greater than 30
[2024-12-16] MEDS: SYMBICORT 160-4.5 MCG INHALER INHALATION SCH (06:34)
[2024-12-16] MEDS: methylPREDNISolone SOD SUCCI 125 MG/2 ML VIAL IV SCH (06:56)
[2024-12-16 08:03] LABS: HCT 47.8 % (37.2-46.3); HGB 14.4 g/dL (12.0-15.0); MCHC 30.1 g/dL (32.0-37.0); MCV 109.4 FL (80.0-97.0); Mean Platelet Volume 12.4 FL (9.5-12.2); NRBC Per 100 WBC 0 X 10*3/uL (0.00-0.01); Platelet Count 134 X 10*3/uL (140-440); RBC 4.37 X 10*6/uL (4.10-5.20); RDW 15.7 % (11.5-14.5)
[2024-12-16 09:04] LABS: BUN/Creat Ratio 21.93 Ratio (12.00-20.00); Blood Urea Nitrogen 30.7 mg/dL (9.0-27.0); Calcium 8.3 mg/dL (8.7-10.3); Carbon Dioxide 24.4 mmol/L (21.6-31.8); Chloride 98 mmol/L (96-109); Glucose 241 mg/dL (70-110); Potassium 3.6 mmol/L (3.5-5.5); Sodium 138 mmol/L (135-145)
[2024-12-16 09:05] LABS: Basophils # (A) 0.01 X 10*3/uL (0.00-0.10); Basophils % (A) 0.1 %; Eosinophils # (A) 0 X 10*3/uL (0.04-0.35); Eosinophils % (A) 0 %; Lymphocytes # (A) 0.51 X 10*3/uL (0.90-5.00); Lymphocytes % (A) 5.3 %; Monocytes # (A) 0.18 X 10*3/uL (0.20-1.00); Monocytes % (A) 1.9 %; Neutrophils # (A) 8.96 X 10*3/uL (1.80-7.70); Neutrophils % (A) 92.3 %
--- NOTE | 2024-12-16 13:29 | PN ---
PROGRESS NOTE DATE OF SERVICE: 12/16/2024 SUBJECTIVE: This -year-old woman was admitted with fall and leg cellulitis, improving significantly. No chest pain. No palpitation. OBJECTIVE: VITAL SIGNS: Pulse is 72, blood pressure 112/68, and respirations 20. CHEST: Clear to auscultation. CARDIOVASCULAR: S1, S2. ABDOMEN: Soft. LEGS: Cellulitis. LABORATORY DATA: Labs noted. ASSESSMENT: 1. Fall and weakness with gait dysfunction. 2. Acute right leg cellulitis. 3. Bilateral foot hematomas. 4. Shortness of breath, possible congestive heart failure acute exacerbation and chronic obstructive pulmonary disease acute exacerbation. 5. Elevated WBC. 6. History of coronary artery disease. 7. Diabetes mellitus, type 2. 8. History of deep venous thrombosis. 9. Hypertension. 10.Hyperlipidemia. 11.Multiple complex medical issues. RECOMMENDATIONS AND DISCUSSION: Recommend to continue current management and continue symptomatic treatment. Continue with the current treatment. Repeat labs in the morning. Increase ambulation. Possible discharge within the next 24 hours. MMODL / IJN: [id number] / ADELA
[2024-12-16] MEDS ORDERED: NON FORMULARY DRUG (Fluticasone Propion/Salmeterol [Fluticasone-Salmeterol 500-50] 1 EACH INHALATION SCH (20:00)
[2024-12-16] MEDS: ATORVASTATIN 80 MG TAB PO SCH (20:08)
[2024-12-16] MEDS: ZINC OXIDE PASTE (Z-GUARD) 1 APPLIC TOPICAL PRN (21:59)
[2024-12-17 08:17] LABS: BUN/Creat Ratio 27.67 Ratio (12.00-20.00); Blood Urea Nitrogen 41.5 mg/dL (9.0-27.0); Calcium 7.7 mg/dL (8.7-10.3); Carbon Dioxide 26.9 mmol/L (21.6-31.8); Chloride 100 mmol/L (96-109); Glucose 179 mg/dL (70-110); Potassium 3.6 mmol/L (3.5-5.5); Sodium 138 mmol/L (135-145)
[2024-12-17 08:23] VITALS: RESP 16
[2024-12-17 08:24] LABS: Basophils # (A) 0.02 X 10*3/uL (0.00-0.10); Basophils % (A) 0.2 %; Eosinophils # (A) 0 X 10*3/uL (0.04-0.35); Eosinophils % (A) 0 %; HCT 41.9 % (37.2-46.3); HGB 13.3 g/dL (12.0-15.0); Lymphocytes # (A) 0.57 X 10*3/uL (0.90-5.00); Lymphocytes % (A) 4.9 %; MCH 34.3 pg (27.0-32.0); MCHC 31.7 g/dL (32.0-37.0); Mean Platelet Volume 11.9 FL (9.5-12.2); Monocytes # (A) 0.35 X 10*3/uL (0.20-1.00); NRBC Per 100 WBC 0 X 10*3/uL (0.00-0.01); Neutrophils # (A) 10.63 X 10*3/uL (1.80-7.70); Platelet Count 152 X 10*3/uL (140-440); RBC 3.88 X 10*6/uL (4.10-5.20); RDW 15.3 % (11.5-14.5); WBC 11.67 X 10*3/uL (4.50-10.00)
[2024-12-17] MEDS: ASPIRIN 81 MG PO SCH (09:15)
[2024-12-17] MEDS: lisinopriL 5 MG TAB PO SCH (09:15)
[2024-12-17] MEDS: carvediloL 6.25 MG TAB PO SCH (09:15)
[2024-12-17] MEDS: EZETIMIBE 10 MG TAB PO SCH (09:17)
[2024-12-17 12:10] VITALS: BP 117/67; PULSE 76; TEMP 97.6
--- NOTE | 2024-12-17 13:37 | P.PN ---
Subjective Progress Note Date: 12/17/24 Patient is a 79-year-old female with past medical history significant for COPD/asthma, coronary artery disease with previous CABG and mitral valve repair, hypertension, hyperlipidemia, peripheral vascular disease, breast cancer with previous mastectomy and radiation. Patient does follow in the pulmonary office with Dr. Perez. Has an FEV1 in the order of 63% of predicted. Maintained on Trelegy inhaler as well as albuterol nebs. Of note, patient did had a recent hospitalization Nov, 2024 for COPD exacerbation and CHF exacerbation. Patient brought into the emergency room today by EMS with a chief complaint of generalized weakness. She has been very sleepy. Associated increased lower extremity swelling. Also, more short of breath than her baseline. Workup in the emergency department including a chest x-ray remarkable for chronic peripheral interstitial prominence. No obvious new pleural effusions, focal consolidations or pneumothoraces. NT-proBNP elevated at 5730. CBC remarkable for leukocytosis with WBC count of 15.7, hemoglobin 14.7, platelets 163. D-dimer 0.57. CMP with a sodium 138, potassium 4, chloride 100, serum bicarb 30, BUN 31, creatinine 1.28, glucose 124. Troponin 0.012. NT proBNP 5730. Urinalysis unremarkable for infection. Serum alcohol level less than 10. Viral 4 Plex for influenza A/B, RSV, COVID negative. Patient currently being evaluated emergency dep artment. She is resting comfortably on 4 L/min nasal cannula. Starting Saturday developed increased bilateral lower extremity swelling and redness of her lower leg. No open wounds. No significant pain or warmth. No fevers or chills. Does reportedly take Lasix on outpatient basis. Denies any chest pain, heart palpitations, syncopal events. Did sleep in a recliner yesterday due to increased work of breathing. Denies any infectious-like symptoms. Denies sick contacts. Denies any increased cough, fevers or chills, wheezing, chest tightness. Given DuoNeb treatments and loaded with IV Solu-Medrol in the ED. Also, started on IV Lasix 40 mg twice a day. Empirically covered on Unasyn. Af ebrile. Current vital signs are stable. The patient is seen today December 17, 2024 in follow-up on the regular medical floor. She is currently sitting up in bed. Awake and alert in no acute distress. Maintaining O2 saturations in the 90s on 3 L/min per nasal cannula. She is afebrile. Hemodynamically stable. Maintained on DuoNeb inhalations, Symbicort, Solu-Medrol. Currently on Unasyn. Blood culture revealing no growth. White count 11.6. Hemoglobin 13.3. Platelets 152. Sodium 138. Pot assium 3.6. Bicarb 27. BUN 42. Creatinine 1.5. Glucose 179. Objective - Vital Signs Vital signs: Vital Signs Temp 97.6 F 12/17/24 12:09 Pulse 76 12/17/24 12:09 Resp 16 12/17/24 12:09 BP 117/67 12/17/24 12:09 Pulse Ox 91 L 12/17/24 12:09 FiO2 Intake & Output 12/16/24 12/17/24 12/17/24 18:59 06:59 18:59 Intake Total 580 960 Output Total 700 650 Balance -120 -650 960 Intake: Intake, IV Titration 100 Amount Ampicillin-Sulbactam 3 gm 100 In Sodium Chloride 0.9% 100 ml @ 200 mls/hr IVPB Q8H [facility] Rx#:[id number] Oral 480 960 Output: Urine 700 650 Other: Voiding Method External Catheter External Catheter # Voids 2 1 - Exam GENERAL EXAM: Alert, 79-year-old female, on 3 L/min nasal cannula, comfortable in no apparent distress. HEAD: Normocephalic and atraumatic EYES: Normal reaction of pupils, equal size. NOSE: Clear with pink turbinates. THROAT: No erythema or exudates. NECK: No masses, no JVD. CHEST: No chest wall deformity. LUNGS: Equal air entry with bibasilar inspiratory crackles. No wheezing, rhonchi, focal dullness. No conversational dyspnea or accessory muscle use.. CVS: S1 and S2 normal with no audible murmur, regular rhythm. No extra heart sounds ABDOMEN: No hepatosplenomegaly, active bowel sounds, no guarding or rigidity. SPINE: No scoliosis or deformity SKIN: No rashes CENTRAL NERVOUS SYSTEM: No focal deficits, tone is normal in all 4 extremities. EXTREMITIES: There is bilateral lower extremity 2-3+ pitting edema. Right lower extremity erythema without warmth or open wounds. Peripheral pulses are weak but palpable. No clubbing or cyano - Labs CBC & Chem 7: 12/17/24 04:25 12/17/24 04:25 Labs: Abnormal Lab Results - Last 24 Hours (Table) 12/17/24 12/17/24 Range/Units 04:25 04:25 WBC 11.67 H (4.50-10.00) X 10*3/uL RBC 3.88 L (4.10-5.20) X 10*6/uL MCV 108.0 H (80.0-97.0) FL MCH 34.3 H (27.0-32.0) pg MCHC 31.7 L (32.0-37.0) g/dL RDW 15.3 H (11.5-14.5) % Immature Gran # 0.10 H (0.00-0.04) X 10*3/uL Neutrophils # 10.63 H (1.80-7.70) X 10*3/uL Lymphocytes # 0.57 L (0.90-5.00) X 10*3/uL Eosinophils # 0 L (0.04-0.35) X 10*3/uL BUN 41.5 H (9.0-27.0) mg/dL Est GFR (CKD-EPI) 35 L (>=60) BUN/Creatinine Ratio 27.67 H (12.00-20.00) Ratio Glucose 179 H (70-110) mg/dL Calcium 7.7 L (8.7-10.3) mg/dL Microbiology - Last 24 Hours (Table) 12/15/24 12:19 Blood Culture - Preliminary Blood Assessment and Plan Assessment: Acute hypoxemic respiratory failure, possibly secondary to a combination of factors including exacerbation of diastolic congestive heart failure and COPD/asthma exacerbation patient is currently on 4 L/min nasal cannula; chest x- ray remarkable for chronic peripheral interstitial prominenc and chronic fibrotic changes. No obvious new pleural effusions, focal consolidations or pneumothoraces. NT-proBNP elevated at 5730. Viral 4 Plex negative for influenza A/B, RSV, COVID. Acute leukocytosis Bilateral lower extremity edema with possible right lower lower extremity cell ulitis History of coronary artery disease with previous history of mild mitral valve regurgitation the patient has undergone 5 vessel bypass surgery and mitral valve annuloplasty. Surgery was done back in 2019. Most recent cardiac catheterization shows patent LIU to LAD and patent SVG to OM1 OM 2 and chronically occluded SVG to RCA. History of severe peripheral vascular disease with intermittent claudication History of carotid artery stenosis History of hyperlipidemia Chronic kidney disease stage III Moderate to severe COPD with a baseline FEV1 of 63% of predicted, currently maintained on a combination of Trelegy inhaler, albuterol nebs twice daily, and as needed albuterol rescue inhaler History of breast cancer with previous right mastectomy followed by radiation History of psoriasis Plan: The patient was seen and evaluated Labs and medications reviewed Currently on 3 L nasal cannula Titrate the FiO2 as tolerated Cleared for discharge from the pulmonary standpoint Continue her home oxygen/pulmonary medications Complete a prednisone taper Follow-up in our office in 1 week I have personally seen and examined the patient, performed the documentation and the assessment and plan as written. Number of minutes spent on the visit: 10 Dictation was produced using [employer] dictation software. Please excuse any grammatical, word or spelling errors.
--- NOTE | 2024-12-19 17:00 | P.DS ---
Providers Date of admission: 12/15/24 14:56 Expected date of discharge: 12/17/24 Attending physician: Hoa Whitmore Consults: 12/15/24 14:39 Consult Physician Urgent Consulting Provider: Randa Pacheco Consult Reason/Comments: COPD Do you want consulting provider notified?: Yes Primary care physician: Toby Lantigua Hospital Course: Final diagnosis Fall and weakness with gait dysfunction Acute right leg cellulitis, present on admission, improved Bilateral feet hematomas Shortness of breath, concerns for COPD acute exacerbation as well as CHF exacerbation Acute hypoxic respiratory failure secondary to COPD exacerbation Leukocytosis, possibly secondary to right leg cellulitis, improved History of coronary artery disease Diabetes mellitus, type II History of DVT Hypertension Hyperlipidemia GI prophylaxis DVT prophylaxis Full code Discharge disposition Patient is being discharged in a stable condition with guarded prognosis to home. Patient will follow-up with Dr. Lantigua in the outpatient setting upon discharge. Patient is to continue with current medications including Keflex for a short course and close outpatient follow-up with pulmonary as scheduled. Patient will require oxygen on discharge to manage COPD. Total time taken is greater than 35 minutes. Hospital course This is a 79-year-old female who was recently admitted with increasing shortness of breath with concerns of mild lower extremity edema and acute right leg cellulitis, present on admission. Patient being followed by pulmonary maintained on steroids along with acute hypoxic respiratory failure requiring 2 L. Attempted to wean patient off O2 although continuing to require oxygen and will be arranged for outpatient oxygen with close outpatient follow-up with pulmonary. Patient's lower extremities significantly improved and will continue on a short course of oral Keflex on discharge. Please refer to consultation notes for further HPI. Currently no reports of chest pain, shortness of breath, or palpitations. Patient is afebrile. No reports of nausea or vomiting and patient is tolerating diet. Patient will be discharged home today. Guarded prognosis Physical exam: Gen: This is a 79-year-old female who is awake, alert and oriented x 3, well- developed, elderly appearing HEENT: Head is atraumatic, normocephalic. Pupils equal, round. Sclerae is anicteric. NECK: Supple. No JVD. No lymphadenopathy. No thyromegaly. LUNGS: Diminished breath sounds bilaterally with a few faint expiratory wheezes and coarse rhonchi noted. No intercostal retractions. HEART: S1, S2 are muffled ABDOMEN: Soft. Bowel sounds are present. No masses. No tenderness. EXTREMITIES: No pedal edema. No calf tenderness. Bilateral lower extremity welling and redness significantly improved, right lower extremity is improved from admission. NEUROLOGICAL: Patient is awake, alert and oriented x3. Cranial nerves 2 through 12 are grossly intact. Please refer to medication reconciliation sheet for a list of medications. The impression and plan of care has been dictated by Anna Sparrow, Nurse Practitioner as directed. Dr. Haim MD I have performed a history and examination and MDM of this patient, discussed the same with the dictator, and agree with the dictator's assessment and plan as written ,documented as a scribe. Based on total visit time, I have performed more than 50% of the visit. Patient Condition at Discharge: Fair Plan - Discharge Summary Discharge Rx Participant: No New Discharge Prescriptions: New Ipratropium-Albuterol Nebulize [Duoneb 0.5 mg-3 mg/3 ml Soln] 3 ml INHALATION RT-QID #100 each Cephalexin [Keflex] 500 mg PO Q8HR 5 Days #15 cap predniSONE See Taper PO DIRECTED #30 tab Budesonide-Formot 160-4.5 Mcg [Symbicort 160-4.5 Mcg Inhaler] 2 puff INHALATION RT-BID #1 each Acetaminophen Tab [Tylenol] 650 mg PO Q6HR PRN tab PRN Reason: Mild Pain Or Fever > 100.5 Continue ALPRAZolam [Xanax] 0.25 mg PO HS PRN PRN Reason: Insomnia Albuterol Nebulized [Ventolin Nebulized] 2.5 mg INHALATION RT-BID carvediloL [Coreg] 6.25 mg PO DAILY Atorvastatin [Lipitor] 80 mg PO HS lisinopriL [Zestril] 5 mg PO DAILY Albuterol Sulfate [Ventolin HFA] 2 puff INHALATION RT-Q6H PRN PRN Reason: Shortness Of Breath Aspirin EC [Ecotrin Low Dose] 81 mg PO DAILY Ezetimibe [Zetia] 10 mg PO DAILY Fluticasone Propion/Salmeterol [Fluticasone-Salmeterol 500-50] 1 puff INHALATION RT-BID Changed Furosemide [Lasix] 20 mg PO BID #60 tab Discharge Medication List ALPRAZolam [Xanax] 0.25 mg PO HS PRN 11/20/18 [History] lisinopriL [Zestril] 5 mg PO DAILY 11/19/23 [History] Albuterol Nebulized [Ventolin Nebulized] 2.5 mg INHALATION RT-BID 11/29/23 [History] Atorvastatin [Lipitor] 80 mg PO HS 11/29/23 [History] carvediloL [Coreg] 6.25 mg PO DAILY 11/29/23 [History] Albuterol Sulfate [Ventolin HFA] 2 puff INHALATION RT-Q6H PRN 12/15/24 [History] Aspirin EC [Ecotrin Low Dose] 81 mg PO DAILY 12/15/24 [History] Ezetimibe [Zetia] 10 mg PO DAILY 12/15/24 [History] Fluticasone Propion/Salmeterol [Fluticasone-Salmeterol 500-50] 1 puff INHALATION RT-BID 12/15/24 [History] Acetaminophen Tab [Tylenol] 650 mg PO Q6HR PRN tab 12/17/24 [Rx] Budesonide-Formot 160-4.5 Mcg [Symbicort 160-4.5 Mcg Inhaler] 2 puff INHALATION RT-BID #1 each 12/17/24 [Rx] Cephalexin [Keflex] 500 mg PO Q8HR 5 Days #15 cap 12/17/24 [Rx] Furosemide [Lasix] 20 mg PO BID #60 tab 12/17/24 [Rx] Ipratropium-Albuterol Nebulize [Duoneb 0.5 mg-3 mg/3 ml Soln] 3 ml INHALATION RT-QID #100 each 12/17/24 [Rx] predniSONE See Taper PO DIRECTED #30 tab 12/17/24 [Rx] Follow up Appointment(s)/Referral(s): Toby Lantigua MD [Primary Care Provider] - 12/21/24 2:30 pm (You will [employer] [employer].) Alessio Perez MD [STAFF PHYSICIAN] - 01/05/25 10:00 am Patient Instructions/Handouts: Cephalexin (By mouth), Furosemide (By mouth), Prednisone (By mouth), Ipratropium/Albuterol (By breathing), Budesonide/Formoterol (By breathing), Cellulitis (GEN), Using Oxygen at Home (DC), COPD (Chronic Obstructive Pulmonary Disease) (DC), Hypoxia (GEN) Activity/Diet/Wound Care/Special Instructions: Activity limited until follow-up Follow-up with primary care provider on discharge Continue taking medications as prescribed Follow-up with pulmonary outpatient Continue with supplemental oxygen Discharge Disposition: HOME SELF-CARE
== END 2024-12-17 15:20 | disposition home or self-care (01) | DRG 190 ==
LOC: EC 11:23 → 4SSUR 14:56 → 5NMEDONC 21:42
PROVIDERS: ADMIT Hospitalist; ATTEND Hospitalist
DX: J44.1 Chronic obstructive pulmonary disease with (acute) exacerbation (principal); I50.43 Acute on chronic combined systolic (congestive) and diastolic (congestive) heart failure; J96.01 Acute respiratory failure with hypoxia; I13.0 Hypertensive heart and chronic kidney disease with heart failure and stage 1 through stage 4 chronic kidney disease, or unspecified chronic kidney disease; E11.22 Type 2 diabetes mellitus with diabetic chronic kidney disease; N18.30 Chronic kidney disease, stage 3 unspecified; Z95.3 Presence of xenogenic heart valve; L03.115 Cellulitis of right lower limb; I25.810 Atherosclerosis of coronary artery bypass graft(s) without angina pectoris; E11.51 Type 2 diabetes mellitus with diabetic peripheral angiopathy without gangrene; I25.10 Atherosclerotic heart disease of native coronary artery without angina pectoris; E78.5 Hyperlipidemia, unspecified; S90.32XA Contusion of left foot, initial encounter; S90.31XA Contusion of right foot, initial encounter; W19.XXXA Unspecified fall, initial encounter; Z79.82 Long term (current) use of aspirin; Z79.899 Other long term (current) drug therapy; I25.2 Old myocardial infarction; Z86.718 Personal history of other venous thrombosis and embolism; Z85.3 Personal history of malignant neoplasm of breast; Z90.11 Acquired absence of right breast and nipple; Y92.009 Unspecified place in unspecified non-institutional (private) residence as the place of occurrence of the external cause; Z87.891 Personal history of nicotine dependence; Z92.3 Personal history of irradiation; Z92.21 Personal history of antineoplastic chemotherapy; Z79.51 Long term (current) use of inhaled steroids; Z99.81 Dependence on supplemental oxygen
CPT/HCPCS: 36415; 71046; 80048; 80053; 80320; 81003; 83605; 83735; 83880; 84484; 85025; 85379; 85610; 85730; 87040; 87636; 93005; 94640; 94760; 96365; 96366; 96375; 96376; 99291